=== PATIENT | male | born 1940 | race Caucasian/White ===

== ENCOUNTER 2022-04-28 09:53 | Outpatient (CLI) | payer MEDICARE, SELFPAY ==
[2022-04-28 12:28] LABS: Albumin* 3.8 g/dL (3.3-5.0); Chloride* 111 mmol/L (96-114)
[2022-04-28 12:29] LABS: Potassium* 4.3 mmol/L (3.6-5.1); Sodium* 142 mmol/L (135-149)
[2022-04-28 12:31] LABS: Alanine Aminotransferase* 27 U/L (4-50); Alkaline Phosphatase* 72 U/L (40-150); Aspartate Amino Transferase* 26 U/L (12-35); Bilirubin Total* 1.2 mg/dL (0.1-1.5); Blood Urea Nitrogen* 31 mg/dL (7-30); Calcium* 9.5 mg/dL (8.4-10.6); Carbon Dioxide* 22 mmol/L (20-32); Cholesterol* 108 mg/dL (90-199); Creatinine* 1.6 mg/dL (0.5-1.5); Estimated Glomerular Filt Rate 43 ml/min; Glucose* 101 mg/dL (60-115); Total Protein* 6.5 g/dL (6.0-8.3); Triglycerides* 191 mg/dL (40-149)
[2022-04-28 12:32] LABS: HDL Cholesterol* 28 mg/dL (>=40); LDL Cholesterol Calculated 42 mg/dL (<100)
== END 2022-04-28 09:54 | disposition home or self-care (01) ==
PROVIDERS: PCP Internal Medicine; Visit Provider Internal Medicine
DX: E78.5 Hyperlipidemia, unspecified (principal); I10 Essential (primary) hypertension
CPT/HCPCS: 80053; 80061

== ENCOUNTER 2022-08-08 15:26 | Emergency (ER) | payer MEDICARE, SELFPAY ==
[2022-08-08] VITALS (29 sets, daily range): BP systolic 101–182; BP diastolic 40–89; PULSE 61–96; RESP 24; TEMP 37.3–39.3; O2SAT 88–95; BMI 40.6
[2022-08-08] MEDS: 0.9 % SODIUM CHLORIDE 1000 ml 1,000 ML IV (16:48)
[2022-08-08 17:12] LABS: Basophils Absolute Auto 0.01 K/uL (0.00-0.30); Basophils Percent Auto 0.1 % (0.0-3.0); Eosinophils Absolute Auto 0.01 K/uL (0.00-0.50); Eosinophils Percent Auto 0.1 % (0.0-7.0); Hematocrit 43.4 % (37.0-53.0); Hemoglobin* 14.3 gm/dL (13.5-17.5); Immature Granulocytes Abs Auto 0.01 K/uL (0.00-0.30); Immature Granulocytes Pct Auto 0.1 %; Lymphocytes Percent Auto 8.3 % (20-44); Mean Corpuscular HGB Conc 33 gm/dL (32-36); Mean Corpuscular Hemoglobin 31 pg (26-34); Mean Corpuscular Volume 94 fL (80-100); Monocytes Percent Auto 8.7 % (0.0-11.0); Neutrophils Percent Auto 82.7 % (42.0-72.0); Platelet Count* 109 K/uL (140-440); RDW Coefficient of Variation % 13.5 % (11.5-15.5); Red Blood Count 4.64 m/uL (4.30-5.90); White Blood Count* 8.67 K/uL (4.50-11.00)
--- NOTE | 2022-08-08 17:23 | ED_ITS ---
HPI - Fever General Date Seen: 08/08/22 Chief Complaint: Fever Stated Complaint: Fever last 2 days, a bit looney Time Seen by Provider: 08/08/22 15:27 Source: patient and family Mode of arrival: ambulatory Limitations: no limitations History of Present Illness HPI Narrative: Patient is a very nice 81-year-old gentleman who presents here from home, with a history of a fever last night in the evening. It has been up to 100-103 at home he is taking Tylenol it does come down to the low 100s with this. He notices that he feels chilled, no nausea, no abdominal pain, little bit of a cough, but no sore throat, he denies any rashes notable. Any ulcers, any diarrhea, and has an indwelling ostomy bag that he has had for the past year secondary to bladder cancer. He has had previous history of UTIs, and they wonder if this is maybe what is going on. MD elicited complaint: fever Onset (ago): day(s) Exacerbating factors: nothing Relieving factors: acetaminophen Associated symptoms: chills, nasal congestion and cough Treatments prior to arrival fever: acetaminophen Related Data Previous Rx's Medication Instructions Recorded allopurinol 300 mg tablet 300 mg PO QDAY #90 tabs 04/21/22 atenolol 25 mg tablet 25 mg PO QDAY #90 tabs 04/21/22 losartan 100 mg tablet 100 mg PO QDAY #90 tabs 04/21/22 simvastatin 40 mg tablet 40 mg PO QHS #90 tabs 08/04/22 Allergies Allergy/AdvReac Type Severity Reaction Status Date / Time No Known Allergies Allergy Unverified 04/28/22 09:34 Review of Systems Status of ROS Reports: 10 or more systems reviewed and unremarkable except as noted in History and below [facility] Medical History Obesity ?E66.9 - Obesity, unspecified (ICD-10) Prostate cancer ?C61 - Malignant neoplasm of prostate (ICD-10) Social History Narrative: Hx tobacco use Smoking Status: Former smoker Do you use any of these nicotine containing products: None Second hand tobacco smoke exposure: No How often do you have a drink containing alcohol: 2-3 times a week How many standard drinks containing alcohol do you have on a typical day: 1 or 2 How often do you have six or more drinks on one occasion: Never AUDIT-C Alcohol total score: 3 Non-prescribed substance use: denies use Little interest or pleasure in doing things: not at all Feeling down, depressed, or hopeless: not at all service: Yes Exam Narrative Exam Narrative: Patient is seen in room 1 he has appear in no apparent distress, he is able to sit up for me, his pupils are equal round reactive to light his TMs are normal his oropharynx is normal, normal hydration status no meningismus in his neck is supple. 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 No tenderness to palpation over his abdomen, normal male genitalia, moves all extremities independently well, he does have some venous stasis changes and healed areas on his shins bilaterally, but tells me there is nothing for ulcers noted on his buttocks or his feet. Neurologically intact moving his upper lower extremities and acting normal for me here. His family is in agreement. Const Vital Signs, click to edit/add: Vital Signs - 24 hr 08/08/22 15:37 08/08/22 15:51 08/08/22 16:00 Temperature 102.7 F H Pulse Rate 69 70 Pulse Rate [Pulse Oximeter] 96 Respiratory Rate 24 Blood Pressure Blood Pressure [Right Upper Arm] 165/67 H Pulse Oximetry 95 94 94 Oxygen Delivery Method Room Air 08/08/22 16:02 08/08/22 16:15 08/08/22 16:30 Temperature Pulse Rate 68 63 64 Pulse Rate [Pulse Oximeter] Respiratory Rate Blood Pressure 153/64 H Blood Pressure [Right Upper Arm] Pulse Oximetry 95 93 93 Oxygen Delivery Method 08/08/22 16:33 08/08/22 16:50 08/08/22 16:52 Temperature Pulse Rate 67 67 65 Pulse Rate [Pulse Oximeter] Respiratory Rate Blood Pressure 182/70 H 175/68 H Blood Pressure [Right Upper Arm] Pulse Oximetry 93 93 92 Oxygen Delivery Method 08/08/22 17:00 08/08/22 17:02 08/08/22 17:03 Temperature Pulse Rate 70 69 71 Pulse Rate [Pulse Oximeter] Respiratory Rate Blood Pressure 152/65 H Blood Pressure [Right Upper Arm] Pulse Oximetry 93 94 93 Oxygen Delivery Method 08/08/22 17:21 08/08/22 17:30 08/08/22 17:32 Temperature Pulse Rate 70 68 68 Pulse Rate [Pulse Oximeter] Respiratory Rate Blood Pressure 132/40 L Blood Pressure [Right Upper Arm] Pulse Oximetry 91 94 93 Oxygen Delivery Method 08/08/22 17:45 08/08/22 18:00 08/08/22 18:02 Temperature 102.2 F H Pulse Rate 64 61 67 Pulse Rate [Pulse Oximeter] Respiratory Rate Blood Pressure 108/64 Blood Pressure [Right Upper Arm] Pulse Oximetry 91 88 90 Oxygen Delivery Method 08/08/22 18:15 08/08/22 18:30 08/08/22 18:33 Temperature Pulse Rate 62 62 63 Pulse Rate [Pulse Oximeter] Respiratory Rate Blood Pressure 101/89 Blood Pressure [Right Upper Arm] Pulse Oximetry 88 90 92 Oxygen Delivery Method 08/08/22 18:45 08/08/22 19:38 08/08/22 18:52 Temperature 99.2 F Pulse Rate 78 75 Pulse Rate [Pulse Oximeter] Respiratory Rate Blood Pressure 111/53 L Blood Pressure [Right Upper Arm] Pulse Oximetry 91 92 Oxygen Delivery Method 08/08/22 19:00 08/08/22 19:02 08/08/22 19:15 Temperature Pulse Rate 72 69 71 Pulse Rate [Pulse Oximeter] Respiratory Rate Blood Pressure 123/53 L Blood Pressure [Right Upper Arm] Pulse Oximetry 93 92 93 Oxygen Delivery Method 08/08/22 19:30 08/08/22 19:31 Temperature Pulse Rate 68 68 Pulse Rate [Pulse Oximeter] Respiratory Rate Blood Pressure 129/64 Blood Pressure [Right Upper Arm] Pulse Oximetry 94 91 Oxygen Delivery Method Course Course Hospital Course: I reviewed with the patient and family he is doing much better in their opinion and mine. He is not tachycardic he has a normal blood pressure is lactate is normal. He still has a fever, but I suspect that this is from his UTI. His urine certainly does look gunk in the setting with a fever negative chest x-ray, and a white count that is normal. I think we should treat this with antibiotics. I reviewed over the his last few visits for UTI, he grew Klebsi milo, Proteus, any coli. All were very sensitive to 1st generation cephalosporin. I gave him 2 g IV of cefazolin and then we will put him on oral Keflex to go home. They will watch him closely if he has increasing delirium, tachycardia feel syncopal or vomits, they will bring him back to be seen. They are very comfortable this plan. Vital Signs Vital signs: Initial Vital Signs Respiratory Depth Normal 08/08/22 15:27 Sepsis Recent Fever Within 48 Hours Yes 08/08/22 15:27 Sepsis Action Taken by Nursing No Action Required 08/08/22 15:27 Vital Signs Temperature 102.7 F H 08/08/22 15:37 Pulse Rate 96 08/08/22 15:37 Respiratory Rate 24 08/08/22 15:37 Blood Pressure 165/67 H 08/08/22 15:37 Pulse Oximetry 95 08/08/22 15:37 Oxygen Delivery Method Room Air 08/08/22 15:37 Temperature 99.2 F 08/08/22 19:38 Pulse Rate 68 08/08/22 19:31 Respiratory Rate 24 08/08/22 15:37 Blood Pressure 129/64 08/08/22 19:31 Pulse Oximetry 91 08/08/22 19:31 Oxygen Delivery Method Room Air 08/08/22 15:37 MDM - Fever MDM Narrative Medical decision making narrative: Life-threatening differential diagnosis is include meningitis, encephalitis, pneumonia, intra-abdominal infection, bacteremia, other differential diagnosis include but are not limited to viral upper respiratory tract infection, strep, urinary tract infection, skin infection, osteomyelitis, influenza, fungal infections, diskitis, epidural abscess, or fever of unknown origin. Medical Records Attestation: I reviewed the patient's medical records. Lab Data Attestation: I reviewed the patient's lab results. Labs: Lab Results 08/08/22 08/08/22 08/08/22 Range/Units 16:29 16:45 17:20 WBC 8.67 (4.50-11.00) K/uL RBC 4.64 (4.30-5.90) m/uL Hgb 14.3 (13.5-17.5) gm/dL Hct 43.4 (37.0-53.0) % MCV 94 (80-100) fL MCH 31 (26-34) pg MCHC 33 (32-36) gm/dL RDW Coeff of Comfort 13.5 (11.5-15.5) % Plt Count 109 L (140-440) K/uL Neut % (Auto) 82.7 H (42.0-72.0) % Lymph % (Auto) 8.3 L (20-44) % [place] % (Auto) 8.7 (0.0-11.0) % Eos % (Auto) 0.1 (0.0-7.0) % Baso % (Auto) 0.1 (0.0-3.0) % Neut # (Auto) 7.20 H (1.7-7.0) K/uL Lymph # (Auto) 0.70 L (0.90-2.90) K/uL [place] # (Auto) 0.80 (0.00-0.90) K/UL Eos # (Auto) 0.01 (0.00-0.50) K/uL Baso # (Auto) 0.01 (0.00-0.30) K/uL Sodium 135 (135-149) mmol/L Potassium 4.1 (3.6-5.1) mmol/L Chloride 104 (96-114) mmol/L Carbon Dioxide 24 (20-32) mmol/L BUN 24 (7-30) mg/dL Creatinine 1.9 H (0.5-1.5) mg/dL Estimated Creat Clear 37.06 Estimated GFR 35 ml/min Glucose 103 (60-115) mg/dL Lactate 1.5 (0.5-1.9) mmol/L Calcium 8.9 (8.4-10.6) mg/dL C-Reactive Protein 7.5 H (0.5-1.0) mg/dL Urine Color Yellow (Yellow) Urine Appearance Clear (Clear) Urine pH 6.0 (5.0-8.5) Ur Specific [place] 1.015 (1.000-1.030) Urine Protein 2+ A (Negative) Urine Glucose (UA) Negative (Negative) Urine Ketones Trace A (Negative) Urine Blood 3+ A (Negative) Urine Nitrite Positive A (Negative) Urine Bilirubin Negative (Negative) Urine Urobilinogen 0.2 (0.2-1.0) Ur Leukocyte Esterase 3+ A (Negative) Urine RBC 10-25 A (0-2) Urine WBC 25-50 A (0-5) Ur Squamous Epith Cells Few (None-Few) Urine Bacteria Moderate A (None) SARS-CoV-2 (PCR) Negative SARS-CoV-2 (Negative) Influenza Type A (PCR) Negative PCR FLU A (Negative) Influenza Type B (PCR) Negative PCR FLU B (Negative) RSV (PCR) Negative PCR RSV (Negative) POC Troponin I 0.00 L (0.01-0.04) ng/ml Imaging Data Chest x-ray: Attestation: I have reviewed the pertinent imaging results. My impression: Negative chest x-ray Radiologist's impression: Negative chest xray ECG Data Attestation: I personally reviewed and interpreted this ECG as follows: ECG interpretation date: 08/08/22 Interpretation: EKG shows normal sinus rhythm with first-degree AV block, no acute ST wave changes, QRS QT and OK intervals are normal. Q-waves are notable in the inferior regions, which may be pathologic. Assessment: EKG shows no acute changes Discharge Plan Discharge Clinical Impression: Fever, Acute UTI Patient Disposition: Home w/ Parent or Adult Condition: Stable Instructions: Urinary Tract Infection in Men (DC), Fever in Adults (ED), Urinary Tract Infection in Older Adults (ED) Additional Instructions: Home rest medications as directed, increasing fevers chills delirium, nausea vomiting, or other issues please bring him back to the hospital. But I do think this will cover him very well at least for the presumed UTI. Tylenol q.6h, can be alternating with ibuprofen. Activity Level: No Restrictions and Light activity Discharge Diet: Regular Prescriptions: No Action allopurinol 300 mg tablet 300 mg PO QDAY Qty: 90 1RF atenolol 25 mg tablet 25 mg PO QDAY Qty: 90 1RF losartan 100 mg tablet 100 mg PO QDAY Qty: 90 1RF simvastatin 40 mg tablet 40 mg PO QHS Qty: 90 0RF Follow Up/Referrals: Gaetano Mariscal MD [Primary Care Provider] - Stand Alone Forms: [employer] Info Instructions
[2022-08-08 17:24] LABS: Lactate* 1.5 mmol/L (0.5-1.9)
[2022-08-08] MEDS: IBUPROFEN 400 MG TABLET 800 MG PO (17:27)
[2022-08-08 17:28] LABS: Appearance Urine Clear (Clear); Bilirubin Urine Negative (Negative); Blood Urine 3+ (Negative); Color Urine Yellow (Yellow); Glucose Urine Negative (Negative); Ketones Urine Trace (Negative); Leukocyte Esterase Urine 3+ (Negative); Nitrite Urine Positive (Negative); Protein Urine 2+ (Negative); Specific Gravity Urine 1.015 (1.000-1.030); Urobilinogen Urine 0.2 (0.2-1.0)
[2022-08-08 17:33] LABS: Chloride* 104 mmol/L (96-114); Sodium* 135 mmol/L (135-149)
[2022-08-08 17:34] LABS: Potassium* 4.1 mmol/L (3.6-5.1)
[2022-08-08 17:36] LABS: Creatinine* 1.9 mg/dL (0.5-1.5); Est. Creatinine Clearance* 37.06; Estimated Glomerular Filt Rate 35 ml/min
[2022-08-08 17:37] LABS: Blood Urea Nitrogen* 24 mg/dL (7-30); Calcium* 8.9 mg/dL (8.4-10.6); Carbon Dioxide* 24 mmol/L (20-32); Glucose* 103 mg/dL (60-115)
[2022-08-08 17:40] LABS: C Reactive Protein* 7.5 mg/dL (0.5-1.0)
[2022-08-08 17:48] LABS: Bacteria Urine Moderate; Squamous Epithelial Cell Urine Few (None-Few); WBC Urine 25-50 (0-5)
[2022-08-08 17:55] LABS: PCR FLU A Negative PCR FLU A (Negative); PCR FLU B Negative PCR FLU B (Negative); PCR RSV Negative PCR RSV (Negative)
[2022-08-08 17:57] LABS: SARS PCR* Negative SARS-CoV-2 (Negative)
[2022-08-08 18:08] LABS: Slide Review Reflex No
--- NOTE | 2022-08-08 18:43 | CRLHL7_ITS ---
For Patients: As a result of the Century Cures Act, medical imaging exams and procedure reports are released immediately into your electronic medical record. You may view this report before your referring provider. If you have questions, please contact your health care provider. INDICATION: Fever, cough TECHNIQUE: Chest radiograph 3 views COMPARISON: 01/18/2021, 10/16/2014 FINDINGS: The sensitivity and specificity of the exam are moderately limited by the patient`s body habitus. Mediastinum: The mediastinum is normal in appearance. The heart silhouette is normal in size and morphology. Lung: Both lungs are unremarkable in appearance. No sign of pleural effusion seen. No pneumothorax is identified. Bone and Soft tissue: Unremarkable for age. IMPRESSION: 1. No acute cardiopulmonary disease is seen. Dictated by: Star Grigsby MD @ 08/08/2022 19:17:54 (Electronically Signed)
[2022-08-08] MEDS: CEFAZOLIN 2 GM INJ IVP (19:38)
[2022-08-08] MEDS: ACETAMINOPHEN 500 MG TABLET 1000 MG PO (19:38)
== END 2022-08-08 20:16 | disposition home or self-care (01) ==
PROVIDERS: Emergency Provider Family Medicine; PCP Internal Medicine
DX: N39.0 Urinary tract infection, site not specified (principal); R50.9 Fever, unspecified
CPT/HCPCS: 36415; 71046; 80048; 81001; 83605; 84484; 85025; 86140; 87040; 87086; 87186; 87631; 93005; 96361; 96374; 99284; 99285; A9270; J0690; J7030

== ENCOUNTER 2022-12-03 15:02 | Outpatient (CLI) | payer MEDICARE, SELFPAY | END 2022-12-03 15:03 | disposition home or self-care (01) | PROVIDERS: PCP Internal Medicine; Visit Provider Internal Medicine | DX: C61 Malignant neoplasm of prostate (principal); C73 Malignant neoplasm of thyroid gland; C67.9 Malignant neoplasm of bladder, unspecified; N18.9 Chronic kidney disease, unspecified; Z12.5 Encounter for screening for malignant neoplasm of prostate | CPT/HCPCS: 84153; 84439; 84443 ==

== ENCOUNTER 2023-02-17 07:42 | Outpatient (CLI) | payer MEDICARE, SELFPAY ==
--- NOTE | 2023-02-17 09:31 | W.ANESCHARGE ---
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
== END 2023-02-17 07:43 | disposition home or self-care (01) ==
LOC: OP CLINIC 07:43
PROVIDERS: PCP Internal Medicine; Visit Provider Surgery
DX: Z12.11 Encounter for screening for malignant neoplasm of colon (principal); K63.5 Polyp of colon; K64.9 Unspecified hemorrhoids; Z86.010 Personal history of colon polyps
CPT/HCPCS: 45385; 811; 88305; 99100; J2704; J3490

== ENCOUNTER 2023-08-25 08:10 | Outpatient (CLI) | payer MEDICARE, SELFPAY ==
--- OUTSIDE RECORDS SUMMARY | 2023-08-27 07:41 | XMS_ITS | Referral Summary ---
Author Name Unknown Organization [facility] Address [address] [place] [id number] Care Team Providers Care Economic Developer Name Role Phone Gaetano Mariscal MD Primary Care Provider Allergies No known active allergies Medications Medication Sig Dispensed Refills Start Date End Date Status SIMVASTATIN PO Take 40 mg by mouth At Bedtime. Active sennosides (SENOKOT) 8.6 MG tablet Take 2 tablets by mouth 2 times daily Active ALLOPURINOL PO Take 300 mg by mouth daily. Active LOSARTAN POTASSIUM PO Take 50 mg by mouth daily Active Potassium Chloride Viji ER (K-DUR PO) Take 20 mEq by mouth 2 times daily Active TORSEMIDE PO Take 5 mg by mouth daily as needed Active CYANOCOBALAMIN PO Take 1 tablet by mouth daily Dose unknown Active atenolol (TENORMIN) 25 MG tabletIndications:Esse ntial hypertension Take 2 tablets (50 mg) by mouth daily 30 tablet 03/24/2017 Active Active Problems Problem Noted Date Diagnosed Date Sepsis 03/19/2017 Social History Tobacco Use Types Packs/Day Years Used Date Smoking Tobacco: Former Smokeless Tobacco: Never Alcohol Use Standard Drinks/Week Comments Yes 0 (1 standard drink = 0.6 oz pur e alcohol) wine daily Sex and Gender Information Value Date Recorded Sex Assigned at Not on file Gender Identity Not on file Sexual Orientation Not on file Last Filed Vital Signs Vital Sign Reading Time Taken Comments Blood Pressure 133/65 04/02/2017 3:00 PM ACCOUNTS PAYABLE SUPERVISOR Pulse 57 04/02/2017 3:00 PM ACCOUNTS PAYABLE SUPERVISOR Temperature 35.9 ??C (96.6 ??F) 04/02/2017 3:00 PM CS T Respiratory Rate 16 04/02/2017 3:00 PM ACCOUNTS PAYABLE SUPERVISOR Oxygen Saturation 99% 04/01/2017 2:23 PM ACCOUNTS PAYABLE SUPERVISOR Inhaled Oxygen Concentration - - Weight 143 kg (315 lb 3.2 oz) 03/24/2017 7:04 AM ACCOUNTS PAYABLE SUPERVISOR Height 190.5 cm (6' 3) 03/19/2017 8:55 PM ACCOUNTS PAYABLE SUPERVISOR Body Mass Index 39.4 03/19/2017 8:55 PM ACCOUNTS PAYABLE SUPERVISOR Plan of Treatment Not on file Advance Directives For more information, please contact: [phone] * Full Code (Latest Code Status on File) Date Activated Date Inactivated Comments 03/24/2017 1:29 PM * Full Code Date Activated Date Inactivated Comments 03/19/2017 9:00 PM 03/24/2017 1:29 PM Care Teams Economic Developer Relationship Specialty Start Date End Date Gaetano Mariscal MD [facility] [address] [place] [address] PCP - General Emergency Medicine 03/19/17
--- OUTSIDE RECORDS SUMMARY | 2023-08-27 07:41 | XMS_ITS | Clinical Summary ---
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 MANAGER Pulse 57 04/02/2017 3:00 PM FROZEN FOOD DEPARTMENT MANAGER Temperature 35.9 ??C (96.6 ??F) 04/02/2017 3:00 PM CS T Respiratory Rate 16 04/02/2017 3:00 PM FROZEN FOOD DEPARTMENT MANAGER Oxygen Saturation 99% 04/01/2017 2:23 PM FROZEN FOOD DEPARTMENT MANAGER Inhaled Oxygen Concentration - - Weight 143 kg (315 lb 3.2 oz) 03/24/2017 7:04 AM FROZEN FOOD DEPARTMENT MANAGER Height 190.5 cm (6' 3) 03/19/2017 8:55 PM FROZEN FOOD DEPARTMENT MANAGER Body Mass Index 39.4 03/19/2017 8:55 PM FROZEN FOOD DEPARTMENT MANAGER Plan of Treatment Not on file Advance Directives For more information, please contact: [phone] * Full Code (Latest Code Status on File) Date Activated Date Inactivated Comments 03/24/2017 1:29 PM * Full Code Date Activated Date Inactivated Comments 03/19/2017 9:00 PM 03/24/2017 1:29 PM Care Teams Metal Tile Setter Relationship Specialty Start Date End Date Gaetano Mariscal MD [facility] [address] [place] [address] PCP - General Emergency Medicine 03/19/17
--- OUTSIDE RECORDS SUMMARY | 2023-08-27 07:42 | XMS_ITS | Encounter Summary ---
Author Name Unknown Organization [facility] Address [address] [place] [address] Care Team Providers Care Molder Hand Name Role Phone None Reported, Pcp Primary Care Provider Unavail able Encounter Details Date Type Department Care Team ([facility] st Contact Info) Description 06/25/2023 Orders Only Department of Urology in [place], [place] [address] [place] [phone] Merced Rivera, RShanice, COCN [address] [place] [id number] Urostomy Status Post (HCC) Social History Tobacco Use Types Packs/Day Years Used Date Smoking Tobacco: Former Cigarettes 0 04/22/1959 - 04/22/1989 Smokeless Tobacco: Never Alcohol Use Standard Drinks/Week Comments Yes 8 (1 standard drink = 0.6 oz pur e alcohol) 1 cup coffee daily INTERNET BUSINESS 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 No 06/20/2023 Humiliation, Afraid, Rape, and Kick questionnair e Answer Date Recorded Within the last year, have y ou been afraid of your partner or ex-partner? No 09/05/2022 Within the last year, have y ou been humiliated or emotionally abused in other ways by your partner or ex-partner? No Within the last year, have y ou been kicked, hit, slapped, or otherwise physically hurt by your partner or ex-partner? No 09/05/2022 Within the last year, have y ou been raped or forced to have any kind of sexual activity by your partner or ex-partner? No 09/05/2022 Social Connection and Isolation Panel [NHANES] A nswer Date Recorded In a typical week, how many times do you talk on the phone with family, friends, or neighbors? Once a week 05/28/19 How often do you get togethe r with friends or relatives? Twice a week 05/28/2022 How often do you attend caro center or mu-ism services? Patient declined 05/28/2022 Do you belong to any clubs o r organizations such as taoism groups, unions, fraternal or athletic groups, or school groups? No 05/28/2022 How often do you attend meet ings of the clubs or organizations you belong to? 1 to 4 times per year 05/28/2022 Are you , , di vorced, , never , or living with a partner? 05/28/2022 AUDIT-C Answer Date Recorded Q1: How often do you have a drink containing alc ohol? 2-3 times a week 05/28/2022 Q2: How many drinks containi ng alcohol do you have on a typical day when you are drinking? 1 or 2 05/28/2022 Q3: How often do you have si x or more drinks on one occasion? Never 05/28/2022 Overall Financial Resource Strain (CARDIA) Answe r Date Recorded How hard is it for you to pa y for the very basics like food, housing, medical care, and heating? Not very hard 09/05/2022 [facility] - Occupational Stress Questionnaire Answer Date Recorded Do you feel stress - tense, restless, nervous, or anxious, or unable to sleep at night because your mind is troubled all the time - these days? Not at all 05/28/2022 Exercise Vital Sign Answer Date Recorde d On average, how many days pe r week do you engage in moderate to strenuous exercise (like a brisk walk)? 0 days 06/20/2023 On average, how many minutes do you engage in exercise at this level? 0 min 06/20/2023 Hunger Vital Sign Answer Date Recorded Within the past 12 months, y ou worried that your food would run out before you got the money to buy more. Never true 06/20/19 24 Within the past 12 months, t he food you bought just didn't last and you didn't have money to get more. Never true 06/20/2023 PRAPARE - Transportation Answer Date Re corded In the past 12 months, has l ack of transportation kept you from medical appointments or from getting medications? No 12/2023 In the past 12 months, has l ack of transportation kept you from meetings, work, or from getting things needed for daily living? No 06/20/2023 Nutrition Answer Date Recorded Nutrition: EVOO Fat Source Yes 06/19 On average, how many serving s of fruits and vegetables do you eat per day (serving size is equal to 1 cup or approximately the size of a tennis ball)? 0-2 06/20/2023 Dental Answer Date Recorded Dental: Regular Dentist Yes 05/30/19 Employment Answer Date Recorded Employment status Retired 06/20/2023 Housing Stability Answer Date Recorded What is your living situation today? I have a [facility] place to live 06/20/2023 Education Answer Date Recorded What is the highest level of school you have completed or the highest degree you have received? 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
--- OUTSIDE RECORDS SUMMARY | 2023-08-27 07:42 | XMS_ITS | Encounter Summary ---
Author Name Unknown Organization [facility] Address [address] [place] [id number] Care Team Providers Care Column Precaster Name Role Phone None Reported, Pcp Primary Care Provider Unavail able Reason for Referral * MRI/CAT/PET Scan (Routine) - Closed Specialty Diagnoses / Procedures Referred By Contac t Referred To Contact Radiology Diagnoses Malignant Neoplasm Of Bladder (HCC) Procedures CT Chest with IV Contrast CT Chest without IV Contrast Christofer Newman MPAS P.A.-C. [address] [place] [phone] [facility] Referral ID Status Reason Start Date Expiration Date Visits Re quested Visits Authorized [id number] Closed 1 1 * MRI/CAT/PET Scan (Routine) - Closed Specialty Diagnoses / Procedures Referred By Contac t Referred To Contact Radiology Diagnoses Malignant Neoplasm Of Bladder (HCC) Procedures CT Urogram without and with IV Contrast Christofer Newman MPAS P.A.-C. [address] [place] [phone] [facility] Referral ID Status Reason Start Date Expiration Date Visits Re quested Visits Authorized [id number] Closed 1 1 Reason for Visit * MRI/CAT/PET Scan (Routine) - Closed Specialty Diagnoses / Procedures Referred By Amaya cook Referred To Contact Radiology Diagnoses Malignant Neoplasm Of Bladder (HCC) Procedures CT Urogram without and with IV Contrast Christofer Newman MPAS, P.A.-C. [address] [place] [address] [facility] Referral ID Status Reason Start Date Expiration Date Visits Re quested Visits Authorized [id number] Closed 1 1 Encounter Details Date Type Department Care Team (Latest Contact Info) Description 06/24/2023 9:51 AM CDT - 06/24/2023 11:59 PM CDT Hospital Encounter Department of Radiology, [facility], in [place], [place] [address] [place] [address] Christofer Newman MPAS, P.A.-C. [address] [place] [phone] Malignant Neoplasm Of Bladder (HCC) Discharge Disposition: Home or Self Care Social History Tobacco Use Types Packs/Day Years Used Date Smoking Tobacco: Former Cigarettes 0 04/22/1959 - 04/22/1989 Smokeless Tobacco: Never Alcohol Use Standard Drinks/Week Comments Yes 8 (1 standard drink = 0.6 oz pur e alcohol) 1 cup coffee daily [facility] [employer] Answer Date Recorded In the past 12 months has e [employer], gas, oil, or water [employer] threatened to shut off services in your [...] friends, or neighbors? Once a week 05/28/19 23 How often do you get togethe r with friends or relatives? Twice a week 05/28/2022 How often do you attend chur ch or mandaeism services? Patient declined 05/28/2022 Do you belong to any clubs o r organizations such as roman catholic groups, unions, fraternal or athletic groups, or [...] care, and heating? Not very hard 09/05/2022 [facility] of Occupat ional Health - Occupational [...] your living situation today? I have a [facility] place to live 06/20/2023 Education Answer Date Recorded What is the highest level of school you have completed or the highest degree you have received? 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 allopurinol (ZYLOPRIM) 300 mg tablet Take 300 mg by mouth every morning. 04/23/2011 atenoloL (TENORMIN) 25 mg tablet Take 25 mg by mouth daily. cholecalciferol (VITAMIN D3) 2,000 Unit capsule Take 2,000 Units by mouth every evening. diphenhydramine HCl (ALLERGY ORAL) Take 1 tablet by mouth 2 (two) times a day. DME Bi-level PAPIndications:Centr al Sleep Apnea Syndrome,Apnea Sleep Obstructive DME Order 1 each 11 06/12/2021 KRILL OIL ORAL Take 1 capsule by mouth every evening. losartan (COZAAR) 100 mg tablet Take 100 mg by mouth daily. 04/21/2022 sennosides-docusate sodium (SENOKOT-S) 8.6-50 mg per tablet Take 1 tablet by mouth 2 (two) times a day. 11/03/2016 simvastatin (ZOCOR) 40 mg tablet Take 40 mg by mouth at bedtime. 04/23/2011 triamcinolone (KENALOG) 0.1 % cream Apply 1 Application topically as needed for irritation or rash. turmeric root extract 500 mg capsule Take 500 mg by mouth daily. DME Ostomy suppliesIndications: Urostomy Status Post (HCC) DME Order 1 Unspecified 11 06/24/2023 06/25/2023 documented as of this encounter Plan of Treatment Not on file documented as of this encounter Procedures Procedure Name Priority Date/Time Associated Diagnosis Comments CT UROGRAM WITHOUT AND WITH IV CONTRAST RAD - Routine (most inpatients and all outpatients) 06/24/2023 12:36 PM CDT Malignant Neoplasm Of Bladder (HCC) CT CHEST WITH IV CONTRAST RAD - Routine (most inpatients and all outpatients) 06/24/2023 12:36 PM CDT Malignant Neoplasm Of Bladder (HCC) documented in this encounter Results * CT Chest with IV Contrast (06/24/2023 12:36 PM CDT) Anatomical Region Laterality Modality Chest, Thoracic RST LOS, Tho racic ARZ LOS, Thoracic ARZ LOS, Thoracic FLA LOS N/A Computed Tomography, Compute d Tomography 06/24/2023 12:1 8 PM CDT Impressions 06/24/2023 1:03 PM CDT 1. No evidence of metastatic disease in the chest. 2. Interval left thyroid lobectomy. Narrative 06/24/2023 1:03 PM CDT EXAM: CT CHEST WITH IV CONTRAST COMPARISON: Chest CT 06/09/2022. FINDINGS: Tiny pulmonary nodules measuring up to 4 mm are unchanged with examples including a nodule in the left upper lobe (series 3 image 263), lingula (3/387) and right upper lobe (3/213). No new or enlarging nodules. Calcified pulmonary granulomas. Small amount of scarring in the dependent lower lungs. No pleural effusion. Interval left thyroid lobectomy. No thoracic lymphadenopathy by size criteria. Moderate to severe coronary artery and aortic valve calcification. Hypertrophic degenerative change in the spine. This examination was performed in conjunction with a CT of the abdomen, which will be reported separately. Procedure Note Trell Dickinson M.D. - 06/24/2023 EXAM: CT CHEST WITH IV CONTRAST COMPARISON: Chest CT 06/09/2022. FINDINGS: Tiny pulmonary nodules measuring up to 4 mm are unchanged with examplesincluding a nodule in the left upper lobe (series 3 image 263), lingula(3/387) and right upper lobe (3/213). No new or enlarging nodules.Calcified pulmonary granulomas. Small amount of scarring in the dependent lower lungs. No pleuraleffusion. Interval left thyroid lobectomy. No thoracic lymphadenopathy by sizecriteria. Moderate to severe coronary artery and aortic valvecalcification. Hypertrophic degenerative change in the spine. This examination was performed in conjunction with a CT of the abdomen,which will be reported separately. IMPRESSION: 1. No evidence of metastatic disease in the chest. 2. Interval left thyroid lobectomy. Christofer SHETTY, P.AEssence. IMG CT [place] OCEDURES * CT Urogram without and with IV Contrast (06/24/2023 12:36 PM CDT) Anatomical Region Laterality Modality Abdomen, Pelvis, Abdominal R ST LOS, Abdominal ARZ LOS, Abdominal FLA LOS N/A Computed Tomograp hy, Computed Tomography 06/24/2023 12:1 7 PM CDT Impressions 06/24/2023 12:51 PM CDT 1. Stable diffuse thickening and enhancement of the wall of the left intrarenal collecting system and ureter with periureteral inflammation. Stable dilatation of the left intrarenal collecting system and ureter with mildly irregular narrowing distally. 3. New mobile intraluminal debris within the left renal pelvis. 4. No specific CT findings to suggest recurrent or metastatic disease in the abdomen or pelvis. Narrative 06/24/2023 12:51 PM CDT EXAM: ??CT UROGRAM WITHOUT AND WITH IV CONTRAST COMPARISON: ??06/09/2022 FINDINGS: ??Postoperative changes of cystoprostatectomy with right lower quadrant urinary diversion. No significant interval change in the moderate dilatation of the left ureter and intrarenal collecting system with mildly irregular narrowing distally near the anastomosis. Persistent diffuse thickening and enhancement and wall of the left intrarenal collecting system and ureter and perihilar and periureteric inflammatory changes. Interval development of mobile debris within the left renal pelvis. Stable slight enhancement and minimal thickening of the wall of the right ureter. Bilateral renal cysts. Large nonobstructed parastomal hernia. Large nonobstructed left inguinal hernia. No adenopathy in the abdomen or pelvis. No suspicious liver lesions. Cholelithiasis. Degenerative changes lumbar spine. This examination was performed in conjunction with a CT of the chest, which will be reported separately. Procedure Note Ariela Bryant M.D. - 06/24/2023 EXAM: CT UROGRAM WITHOUT AND WITH IV CONTRAST COMPARISON: 06/09/2022 FINDINGS: Postoperative changes of cystoprostatectomy with right lowerquadrant urinary diversion. No significant interval change in the moderatedilatation of the left ureter and intrarenal collecting system with mildlyirregular narrowing distally near the anastomosis. Persistent diffuse thickening and enhancement andwall of the left intrarenal collecting system and ureter and perihilar andperiureteric inflammatory changes. Interval development of mobile debriswithin the left renal pelvis. Stable slight enhancement and minimal thickening of the wall of the rightureter. Bilateral renal cysts. Large nonobstructed parastomal hernia. Large nonobstructed left inguinalhernia. No adenopathy in the abdomen or pelvis. No suspicious liver lesions. Cholelithiasis. Degenerative changes lumbar spine. This examination was performed in conjunction with a CT of the chest,which will be reported separately. IMPRESSION: 1. Stable diffuse thickening and enhancement of the wall of the leftintrarenal collecting system and ureter with periureteral inflammation.Stable dilatation of the left intrarenal collecting system and ureter withmildly irregular narrowing distally. 3. New mobile intraluminal debris within the left renal pelvis. 4. No specific CT findings to suggest recurrent or metastatic disease inthe abdomen or pelvis. Christofer SHETTY, PLilianaAGabrieleC. IMG CT [place] OCEDURES documented in this encounter Visit Diagnoses Diagnosis Malignant Neoplasm Of Bladder (HCC) documented in this encounter Administered Medications Inactive Administered Medications - up to 3 most recent administrations Medication Order MAR Action Action Date Dose Rate Site iohexoL 350 mg iodine/mL solution 1-200 mL (OMNIPAQUE) 1-200 mL, intravenous, Once in imaging, contrast, Starting on Thu06/24/23 at 1202, For 1 dose, Imaging Protocol Orders, Dose per Radiant Medication Guidelines Given 06/24/2023 12:02 PM CDT 140 mL sodium chloride 0.9 % flush 1-250 mL 1-250 mL, intravenous, Once, On Thu06/24/23 at 1100, For 1 dose, Imaging Protocol Orders, Dose per Radiant Medication Guidelines Given 06/24/2023 12:03 PM CDT 190 mL documented in this encounter Care Teams Column Precaster Relationship Specialty Start Date End Date None Reported, Pcp PCP - General Family Medicine 10/13/22 documented as of this encounter
--- OUTSIDE RECORDS SUMMARY | 2023-08-27 07:42 | XMS_ITS | Encounter Summary ---
Author Name Unknown Organization [facility] Address [address] [place] [address] Care Team Providers Care Farm Marketer Name Role Phone None Reported, Pcp Primary Care Provider Unavail able Reason for Visit * Outpatient (Routine) - Closed Specialty Diagnoses / Procedures Referred By Contac t Referred To Contact Diagnoses Urostomy Status Post (HCC) Procedures URO Stoma care Christofer Newman MPAS, P.A.-C. [address] [place] [phone] [facility] Referral ID Status Reason Start Date Expiration Date Visits Re quested Visits Authorized [id number] Closed 04/14/2023 04/13/2024 1 1 Encounter Details Date Type Department Care Team (Latest Contact Info) Description 06/24/2023 1:15 PM CDT Procedure visit Department of Urology in [place], [place] [address] [place] [phone] Christofer Newman MPAS, P.A.-C. [address] [place] [phone] Joie Forte R.N., ALAYNA [address] [place] [phone] Urostomy Status Post (HCC) Social History Tobacco Use Types Packs/Day Years Used Date Smoking Tobacco: Former Cigarettes 0 04/22/1959 - 04/22/1989 Smokeless Tobacco: Never Alcohol Use Standard Drinks/Week Comments Yes 8 (1 standard drink = 0.6 oz pur e alcohol) 1 cup coffee daily [facility] Utilities Answer Date Recorded In the past 12 months has th e electric, gas, oil, or water company threatened to shut off services in your [...] week 05/28/2022 How often do you attend [facility] or pentecostal services? Patient declined 05/28/2022 Do you belong to any clubs o r organizations such as yazidi groups, unions, fraternal or athletic groups, or [...] care, and heating? Not very hard 09/05/2022 [facility] of Occupat ional Health - Occupational Stress [...] your living situation today? I have a [facility] place to live 06/20/2023 Education Answer Date Recorded What is the highest level of school you have completed or the highest degree you have received? 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 HISTORY OF PRESENT ILLNESS Michael Dwyer is a 82 y.o. male was referred by Christofer Newman MPAS, P.A.-C. for evaluation of pouching system management. Patient states the pouching system is usually changed every 4 days. Reports having issues with leakage and large hernia. States he cannot wear his pouching system longer than 4 days or else it leaks. He uses XL Brava Strips to help with the seal. Reports he has 2 hernias,one on either side of his abdomen. His hernia support belt is wornout and does not fit him anymore. OBJECTIVE Physical Exam Urostomy Ileal conduit RLQ (Active) Site Assessment Red;Flush Stoma Size 1-1/2 x 1-1/4 Skin Assessment Hernia Intermittently retracts from 4-8 o'clock Peristomal Skin Care Water, skin barrier Skin barrier wipe as stoma changes size between laying andstanding Pouching System (Stomal Appliance) Status Changed;Leaking 4-8 o'clock past convex protective seal after one day. Changed by Wound optical goods worker Pouching System Removed [employer] #[id number], [employer] #[id number], [employer] #[id number], Coloplast XL brava strips, hernia support belt Pouching System Applied [employer] #[id number], [employer] #[id number], [employer] #[id number], [employer]n #[id number] x 4,hernia support belt Patient would like to see if his current system will seal better if he has an appropriate belt. Understands once his has his custom belt, if the leakage continues he should returnto see the C RN. Would likely need to try a flat or soft convex wafer with partial convex ring/washer or a flat wafer with a full convex ring and a partial washer. Measured for custom hernia support belt. Waist circumference laying flat 57, Hernia width 9, standard 1.5 from bottom. [employer], regular elastic, white, right sided stoma for 2-3/4 flange appliance. [employer] contacted for assistance in custom belt ordering number. Connie [id number] was given as belt that patient would need to order. Portal message sent to patient with this information. He has been seen by providers at [facility] for hernia, per patient he was told the hernia would not be repaired unless necessary. Discussed need to lay flat to apply hernia support belt, so it can give the best support for his hernias. ASSESSMENT / PLAN Questions answered. Prescription renewed, to be faxed to [facility] once signed. Patient given ordering information for skin barrier wipes. Encouraged to call or return (per Return Appointment Protocol [id number]) for ostomy related questions or concerns. Patient verbalized understanding. documented in this encounter Miscellaneous Notes * Addendum Note - Joie Forte R.N., CWON - 06/24/2023 1:15 PM CDTAddended by: JOIE FORTE on: 06/24/2023 02:25 PM Modules accepted: Orders documented in this encounter Plan of Treatment Not on file documented as of this encounter Visit Diagnoses Diagnosis Urostomy Status Post (HCC) documented in this encounter Care Teams Farm Marketer Relationship Specialty Start Date End Date None Reported, Pcp PCP - General Family Medicine 10/13/22 documented as of this encounter
--- OUTSIDE RECORDS SUMMARY | 2023-08-27 07:42 | XMS_ITS | Referral Summary ---
Author Name Unknown Organization [facility] Address [address] [place] [address] Care Team Providers Care Combustion Analyst Name Role Phone None Reported, Pcp Primary Care Provider Unavail able Source Comments Patient records contain information from all sites at [facility]. For routine questions regarding patient records, call [phone] during business hours, M-F 8:00 AM - 5:00 PM Central Time. Record requests for emergency care only can be directed to [phone] at any time.[facility] Encounters Date Type Department Care Team Description 06/25/2023 Orders Only Department of Urology in [place], [place] [address] [place] [phone] Merced Rivera, RLilianaNLiliana, JULIENNE Urostomy Status Post (HCC) 06/24/2023 1:15 PM CDT Procedure visit Department of Urology in [place], [place] [address] [place] [phone] Christofer Newamn MPAS, P.A.PhyllisC. Evelyn Ledesma RLilianaNLiliana, ALAYNA Urostomy Status Post (HCC) 06/24/2023 9:00 AM CDT Lab Department of Urology in [place], [place] [address] [place] [phone] Christofer Newman MPAS, P.Carina.Elie. Madhuri Goel RShanice Malignant Neoplasm Of Bladder (HCC) 06/24/2023 9:51 AM CDT - 06/24/2023 11:59 PM CDT Hospital Encounter Department of Radiology, [facility], in [place], [place] [address] [place] [phone] Christofer Newman MPAS, P.A.-C. Malignant Neoplasm Of Bladder (HCC) Discharge Disposition: Home or Self Care 06/24/2023 3:30 PM CDT Office Visit Department of Urology in [place], [place] [address] [place] [phone] Christofer Newman MPAS, P.A.-C. Barby Ojeda, JALEESA C.N.P., M.S.N. Malignant Neoplasm Of Bladder (HCC) (Primary Dx) 06/24/2023 8:00 AM CDT - 06/24/2023 9:50 AM CDT Hospital Encounter Department of Laboratory Medicine and Pathology, [facility], in [place], [place] [address] [place] [phone] Christofer Newman MPAS, P.A.-C. Malignant Neoplasm Of Bladder (HCC) Discharge Disposition: Home or Self Care 06/22/2023 9:15 AM CDT Clinical Communication Virtual Review in [place], [place] 200 [place] [phone] Pre-visit Intake from Last 3 Months Allergies No known active allergies Medications Medication Sig Dispensed Refills Start Date End Date Status sennosides-docusa te sodium (SENOKOT-S) 8.6-50 mg per tablet Take 1 tablet by mouth 2 (two) times a day. 11/03/2016 Active simvastatin (ZOCOR) 40 mg tablet Take 40 mg by mouth at bedtime. 04/23/2011 Active allopurinol (ZYLOPRIM) 300 mg tablet Take 300 mg by mouth every morning. 04/23/2011 Active cholecalciferol (VITAMIN D3) 2,000 Unit capsule Take 2,000 Units by mouth every evening. Active turmeric root extract 500 mg capsule Take 500 mg by mouth daily. Active triamcinolone (KENALOG) 0.1 % cream Apply 1 Application topically as needed for irritation or rash. Active atenoloL (TENORMIN) 25 mg tablet Take 25 mg by mouth daily. Active DME Bi-level PAPIndications:Ce ntral Sleep Apnea Syndrome,Apnea Sleep Obstructive DME Order 1 each 11 06/12/2021 Active losartan (COZAAR) 100 mg tablet Take 100 mg by mouth daily. 04/21/2022 Active KRILL OIL ORAL Take 1 capsule by mouth every evening. Active acetaminophen (TYLENOL) 500 mg tablet Take 1,000 mg by mouth every 6 (six) hours as needed for pain. Active diphenhydramine HCl (ALLERGY ORAL) Take 1 tablet by mouth 2 (two) times a day. Active DME Ostomy suppliesIndicatio ns:Urostomy Status Post ([facility]) DME Order 1 Unspecified 11 06/25/2023 Active Active Problems Patient Care Coordination No te Formatting of this note migh t be different from the original. Authorization to disclose protected health information signed for Luz Dwyer - spouse on 04/22/18. 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 Embolus Pulmonary Personal History 07/14/2011 Conduit Ileal 06/13/2011 Personal History Of Malignant Neoplasm Of Bladde r 04/22/2011 Polyp Colon Adenomatous Personal History 007 Overview: LW Modifier: next colonoscopy 2011 LW Onset: 2006 ; Polyp Colon Adenomatous Detachment Retinal With Defect 05/08/2006 Overview: LW Modifier: left eye LW Onset: 05/06/06 ; Retinal Detach w Defect NOS 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 Overview: 2 stents placed 2005 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 Chronic Kidney Disease (CKD) Stage 3b Glomerular Filtration Rate (GFR) 30 To 44 Hyperlipidemia Resolved Problems Problem Noted Date Diagnosed Date Resolved Date Benign Prostatic Hyperplasia With Lower Urinary Tract Symptom 07/25/2009 05/15/2023 Overview: LW Modifier: s/p TURP ; BPH Age Related Prostate Ca Risk w Obst Immunizations Name Administration Dates Next Due SARS-COV-2 (COVID-19) - PFIZ ER (Discontinued)(12 years or older) 01/04/2021,06/16/2020,05/26/2020 Social History Tobacco Use Types Packs/Day Years Used Date Smoking Tobacco: Former Cigarettes 0 04/22/1959 - 04/22/1989 Smokeless Tobacco: Never Tobacco Cessation:Counseling Given: Not Answered Alcohol Use Standard Drinks/Week Comments Yes 8 (1 standard drink = 0.6 oz pur e alcohol) 1 cup coffee daily [facility] [employer] Answer Date Recorded In the past 12 months has e Diz[employer], gas, oil, or water [employer] threatened to shut off services in your [...] 05/28/2022 How often do you attend chur or sabianist services? Patient declined 05/28/2022 Do you belong to any clubs o r organizations such as baptism groups, unions, fraternal or athletic groups, or [...] care, and heating? Not very hard 09/05/2022 [facility] - [...] living situation today? I have a [facility] place to live 06/20/2023 Education Answer Date Recorded What is the highest level of school you have completed or the highest degree you have received? Bachelor's degree (e.g., BA, AB, BS) 05/16/2019 Sex and Gender Information Value Date Recorded Sex Assigned at Male 01/13/2020 10:41 AM CDT Gender Identity Male 04/11/2018 8:29 AM SECURITY SYSTEM ANALYST Sexual Orientation Straight 04/11/2018 8: 29 AM SECURITY SYSTEM ANALYST Last Filed Vital Signs Vital Sign Reading Time Taken Comments Blood Pressure 149/75 10/14/2022 10:50 AM CDT Pulse 55 10/14/2022 10:50 AM CDT Temperature 36.7 ??C (98.1 ??F) 10/14/2022 10:50 AM C DT Respiratory Rate 17 10/14/2022 10:50 AM CDT Oxygen Saturation 93% 10/14/2022 10:50 AM CDT Inhaled Oxygen Concentration - - Weight 146 kg (322 lb 1.5 oz) 10/13/2022 10:47 A M CDT Height 190 cm (6' 2.8) 10/13/2022 10:47 AM CDT Body Mass Index 40.47 10/13/2022 10:47 AM CDT Plan of Treatment Not on file Medical Devices Implanted Type Area Financial Services Consultant Device Identifier Shelf Expiration Date Model / Serial / Lot Clp Hrzn Ti 6 Satya Horvath Lorne - [id number] Implanted:Qty: 1 on 10/13/2022 by Tam Stoddard M.D. at [facility] Hardware e.g. pins/screws/ rods Neck [employer] [id number] / / Clp Hrzn Ti 6 Satya Horvath Lorne - [id number] Implanted:Qty: 1 on 10/13/2022 by Tam Stoddard M.D. at [facility] Hardware e.g. pins/screws/ rods [employer] [id number] / / Clp Hrzn Ti 6 Clp Sm Red - [id number] Implanted:Qty: 1 on 10/13/2022 by Tam Stoddard M.D. at [facility] Hardware e.g. pins/screws/ rods Neck [employer] / / Clp Hrzn Ti 6 Clp Sm Red - [id number] Implanted:Qty: 1 on 10/13/2022 by Tam Stoddard M.D. at [facility] Hardware e.g. pins/screws/ rods Neck [employer] / / Stent Uret Single J 7 X 90cm - [id number] Implanted:Qty: 1 on 05/29/2011 Ureteral Stent Other/Legacy - See Implant Description Description:Device Manufactu rer - Circon Surgi. Device Status Text - [id number]. Explanted Type Area Financial Services Consultant Device Identifier Shelf Expiration Date Model / Serial / Lot Filter [place]ibal Vena Cava- Jugular - [id number] Implanted:Qty: 1 on 06/23/2011 Explanted:2011 (Quantity not on file) Vascular or IVC Filter Right: Chest C.R.Bard Description:Device Manufactu rer - Bard Access. Device Status Text - [id number]. Procedures Procedure Name Priority Date/Time Associated Diagnosis Comments CT CHEST WITH IV CONTRAST RAD - Routine (most inpatients and all outpatients) 06/24/2023 12:36 PM CDT Malignant Neoplasm Of Bladder (HCC) CT UROGRAM WITHOUT AND WITH IV CONTRAST RAD - Routine (most inpatients and all outpatients) 06/24/2023 12:36 PM CDT Malignant Neoplasm Of Bladder (HCC) CYTOLOGY NON-STOCK PREPARER Routine 06/24/2023 8:51 AM CDT Malignant Neoplasm Of Bladder (HCC) VITAMIN B12 ASSAY, S Routine 06/24/2023 8:26 AM CDT Malignant Neoplasm Of Bladder (HCC) CBC WITHOUT DIFFERENTIAL, B Routine 06/24/2023 8:26 AM CDT Malignant Neoplasm Of Bladder (HCC) BASIC METABOLIC PANEL, S/P Routine 06/24/2023 8:26 AM CDT Malignant Neoplasm Of Bladder (HCC) from Last 3 Months Results * CT Urogram without and with IV [...] disease inthe abdomen or pelvis. Christofer SHETTY, P.AEssence. IMG CT [place] OCEDURES * CT Chest with IV Contrast (06/24/2023 [...] chest. 2. Interval left thyroid lobectomy. Christofer SHETTY PBing. IMG CT [place] OCEDURES * Cytology Non-STOCK PREPARER (06/24/2023 8:51 AM CDT) 06/29/2023 2:55 PM CDT DTL Fixative NA 06/29/2023 2:55 PM CDT DTL Report electronically signed by Mayo Bailey M.D. I verify that I have examined all relevant slides/material s for the specimen(s) and rendered or confirmed the diagnosis. 06/29/2023 2:55 PM CDT DTL Gross Description Received 50 cc of cloudy yellow fluid. 06/29/2023 2:55 PM CDT DTL Collection Procedure stoma urine 06/29/2023 2:55 PM CDT DTL Source A. Urine, Stoma, catheterized 06/29/2023 2:55 PM CDT DTL Interpretation A. Urine, Stoma, catheterized (ThinPrep): Negative for High-Grade Urothelial Carcinoma. ??Cellular changes consistent with urinary diversion. 06/29/2023 2:55 PM CDT DTL Urine 06/24/2023 8:51 AM CDT 06/24/2023 11:05 AM CDT Christofer SHETTY P.A.-C. LAB SURG PATH ORDERABLES Performing Organization Address City/Va Hospital/ZIP Co de Phone Number [facility] 200 [place] [address], [facility] DTL 200 [facility] 200 [place] [address] * CBC without Differential (06/24/2023 8:26 AM CDT) Hemoglobin 13.9 13.2 - 16.6 g/dL 06/24/2023 9:08 AM CDT DTL Hematocrit 42.3 38.3 - 48.6 % 06/24/2023 9:08 AM CDT DTL Erythrocytes 4.51 4.35 - 5.65 x10(12)/L 06/24/2023 9:08 AM CDT DTL MCV 93.8 78.2 - 97.9 fL 06/24/2023 9:08 AM CDT DTL RBC Distrib Width 13.7 11.8 - 14.5 % 06/24/2023 9:08 AM CDT DTL Platelet Count 180 135 - 317 x10(9)/L 06/24/2023 9:08 AM CDT DTL Leukocytes 8.6 3.4 - 9.6 x10(9)/L 06/24/2023 9:08 AM CDT DTL Blood (Blood, Venous) 06/24/2023 8:26 AM CDT 06/24/2023 8:45 AM CDT Christofer SHETTY P.A.-C. LAB BLOOD ADD-ON Performing Organization Address City/Va Hospital/ZIP Co de Phone Number [facility] 200 [place] [address], [facility] DTL [facility] [address] [place] [address] * Vitamin B12 Assay (06/24/2023 8:26 AM CDT) Pathologist [facility] Vitamin B12 Assay, S 221 180 - 914 ng/L 06/24/2023 11:46 AM CDT DTL Comment: ----ADDITIONAL INFORMATION---- In patients being evaluated for vitamin B12 deficiency who have intrinsic factor blocking antibodies (IFBA), false elevations of B12 may occur due to IFBA interference thus potentially obscuring a physiological deficiency of B12. If observed B12 concentrations are discordant with clinical presentation, measurement of methylmalonic acid (MMA) should be considered. Blood (Blood, Venous) 06/24/2023 8:26 AM CDT 06/24/2023 8:59 AM CDT Christofer SHETTY, P.A.-C. LAB BLOOD ADD-ON [place] [address] [place] [address], [facility] [address] [place] [address] * (ABNORMAL) Basic Metabolic Panel (06/24/2023 8:26 AM CDT) Pathologist [facility] Potassium, S 4.3 3.6 - 5.2 mmol/L 06/24/2023 9:45 AM CDT DTL Sodium, S 143 135 - 145 mmol/L 06/24/2023 9:45 AM CDT DTL Chloride, S 106 98 - 107 mmol/L 06/24/2023 9:45 AM CDT DTL Bicarbonate, S 22 22 - 29 mmol/L 06/24/2023 9:45 AM CDT DTL Anion Gap 15 7 - 15 06/24/2023 9:45 AM CDT DTL BUN (Blood Urea Nitrogen), S 36(H) 8 - 24 mg/dL 06/24/2023 9:45 AM CDT DTL Creatinine 1.97(H) 0.74 - 1.35 mg/dL 06/24/2023 9:45 AM CDT DTL Estimated GFR (eGFR) 34(L) >=60 mL/min/BSA 06/24/2023 9:45 AM CDT DTL Comment: Estimated GFR calculated using the 2020 CKD_EPI creatinine equation. Calcium, Total, S 9.0 8.8 - 10.2 mg/dL 06/24/2023 9:45 AM CDT DTL Glucose, S 113 70 - 140 mg/dL 06/24/2023 9:45 AM CDT DTL Blood (Blood, Venous) 06/24/2023 8:26 AM CDT 06/24/2023 8:59 AM CDT Christofer SHETTY, P.A.-C. LAB BLOOD ADD-ON [facility] [address] [place] [address], [place] [facility] [address] [place] [address] from Last 3 Months Advance Directives For more information, please contact: [phone] Documents on File Type Date Recorded Patient A/C Tech Expl anation Advance Directives 05/29/2011 12:00 AM Leg acy document. See document viewer. * Full Code (Latest Code Status on File) Date Activated Date Inactivated Comments 10/13/2022 11:41 AM 10/14/2022 2:29 PM Question Answer Comments Full Code: Discussed Care Teams Combustion Analyst Relationship Specialty Start Date End Date None Reported, Pcp PCP - General Family Medicine 10/13/22
--- OUTSIDE RECORDS SUMMARY | 2023-08-27 07:42 | XMS_ITS | Clinical Summary ---
Author Name Unknown Organization [facility] Address [address] [place] [address] Care Team Providers Care Home Care And Home Health Aides Teacher Name Role Phone None Reported, Pcp Primary Care Provider Unavail able Source Comments Patient records contain information from all sites at [facility]. For routine questions regarding patient records, call [phone] during business hours, M-F 8:00 AM - 5:00 PM Central Time. 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 Barby Ojeda APRN CLilianaN.P., M.S.N. Malignant Neoplasm Of Bladder (HCC) (Primary Dx) 06/24/2023 1:15 PM CDT Procedure visit Department of Urology in [place], [place] [address] [place] [phone] Christofer Newman MPAS, P.A.-C. Evelyn Ledesma R.N., ALAYNA Urostomy Status Post (HCC) 06/24/2023 9:51 AM CDT - 06/24/2023 11:59 PM CDT Hospital Encounter Department of Radiology, [facility], in [place], [place] [address] [place] [phone] Christofer Newman MPAS, P.A.-C. Malignant Neoplasm Of Bladder (HCC) Discharge Disposition: Home or Self Care 06/24/2023 9:00 AM CDT Lab Department of Urology in [place], [place] [address] [place] [phone] Christofer Newman MPAS, P.A.-C. Madhuri Goel, RLilianaN. Malignant Neoplasm Of Bladder (HCC) 06/24/2023 8:00 AM CDT - 06/24/2023 9:50 AM CDT Hospital Encounter Department of Laboratory Medicine and Pathology, [facility] in [place], [place] [address] [place] [phone] Christofer Newman MPAS, P.A.-C. Malignant Neoplasm Of Bladder (HCC) Discharge Disposition: Home or Self Care 06/22/2023 9:15 AM CDT Clinical Communication Virtual Review in [place], [place] [address] [place] [phone] Pre-visit Intake from Last 3 Months Immunizations Name Administration Dates Next Due SARS-COV-2 (COVID-19) - PFIZ ER (Discontinued)(12 years or older) 01/04/2021,06/16/2020,05/26/2020 Family History Medical History Relation Name Comments Coronary artery disease Brother Freddy Dwyer Sten ts, 2021 Hyperlipidemia Brother Freddy Dwyer Hypertension Brother Freddy Dwyer Kidney disease Brother Freddy Dwyer Stroke Brother Freddy Dwyer Prostate cancer Father Sedrick Dwyer Other cancer Mother Corrine Dwyer unknown cancer, stomach area, liver? Hyperlipidemia Sister Lyndsay Eliel Hypertension Sister Lyndsay Eliel Other cancer Sister Lyndsay Eliel 2021, hear t attack Relation Name Status Comments Brother Freddy Dwyer Father Sedrick Dwyer Mother Corrine Dwyer Sister Lyndsay Eliel Social History Tobacco Use Types Packs/Day Years Used Date Smoking Tobacco: Former Cigarettes 0 04/22/1959 - 04/22/1989 Smokeless Tobacco: Never Tobacco Cessation:Counseling Given: Not Answered Alcohol Use Standard Drinks/Week Comments Yes 8 (1 standard drink = 0.6 oz pur e alcohol) 1 cup coffee daily [employer] Answer Date Recorded In the past 12 months has e [employer], gas, oil, or water [employer] threatened to shut off services in your [...] often do you attend chur ch or orthodoxy services? Patient declined 05/28/2022 Do you belong to any clubs o r organizations such as rastafarian groups, unions, fraternal or athletic groups, or [...] care, and heating? Not very hard 09/05/2022 [facility] - Occupational [...] your living situation today? I have a [facility] place to live 06/20/2023 Education Answer Date Recorded What is the highest level of school you have completed or the highest degree you have received? Bachelor's degree (e.g., BA, AB, BS) 05/16/2019 Sex and Gender Information Value Date Recorded Sex Assigned at Male 01/13/2020 10:41 AM CDT Gender Identity Male 04/11/2018 8:29 AM NICKEL PLATER Sexual Orientation Straight 04/11/2018 8: 29 AM NICKEL PLATER Last Filed Vital Signs Vital Sign Reading [...] 10/13/2022 10:47 AM CDT Plan of Treatment Health Maintenance Due Date Last Done Comments Visit: Chronic Disease, age 18+ 1940 Visit: Medicare Annual Wellness 1940 Office Visit for Blood Press ure Check / Re-check 11/19/2022 08/19/2022 COVID-19 Vaccine ( - 2022-2 4 season) 2022 12/26/2021, 07/09/2021, 01/04/2021, Additional history exists Depression Screening (Annual PHQ-2) 04/13/2023 Creatinine Level (Kidney Fun ction Test) 06/23/2024 06/24/2023, 06/09/2022, 06/09/2022, Additional history exists Potassium Level 06/23/2024 06/24/2023, 05/15, 06/05/2021, Additional history exists Sodium Level 06/23/2024 06/24/2023, 0706/2022, 06/09/2022, Additional history exists DTaP,Tdap,and Td Vaccines (3 - Td or Tdap) 04/28/2032 04/28/2022, 12/31/2012, 04/25/2004, Additional history exists Pneumococcal vaccine (65+ years) Completed 12/16/2017, 10/23/2014, 12/31/2012, Additional history exists Zoster Vaccines Completed 09/04/2021, 08/11, 12/16/2017, Additional history exists Influenza Vaccine Completed 12/19/2022, , 02/04/2021, Additional history exists Fall Risk Screen (Annual) Completed 06/24/2023 Lung Cancer Screening Discontinued 06/24/2023 , 06/09/2022, 05/26/2019, Additional history exists Medical Devices Implanted Type Area Auto Adjudication Specialist Device Identifier Shelf Expiration Date Model / Serial / Lot Clp Hrzn Ti 6 Satya Horvath Lorne - [id number] Implanted:Qty: 1 on 10/13/2022 by Tam Stoddard M.D. at [facility] Hardware e.g. pins/screws/ rods Neck [employer] [id number] / / Clp Hrzn Ti 6 Satya Horvath Lorne - [id number] Implanted:Qty: 1 on 10/13/2022 by Tam tSoddard M.D. at [facility] Hardware e.g. pins/screws/ rods [employer] [id number] / / Clp Hrzn Ti 6 Clp Red - [id number] Implanted:Qty: 1 on 10/13/2022 by Tam Stoddard M.D. at [facility] Hardware e.g. pins/screws/ rods Neck [employer] / / Clp Hrzn Ti 6 Clp Sm Red - [id number] Implanted:Qty: 1 on 10/13/2022 by Tam Stoddard M.D. at [facility] Hardware e.g. pins/screws/ rods Neck [employer] / / Stent Uret Single J 7 X 90cm - [id number] Implanted:Qty: 1 on 05/29/2011 Ureteral Stent Other/Legacy - See Implant Description Description:Device Manufactu rer - Circon Surgi. Device Status Text - [id number]. Explanted Type Area Auto Adjudication Specialist Device Identifier Shelf Expiration Date Model / Serial / Lot Filter [place] Vena Cava- Jugular - [id number] Implanted:Qty: 1 on 06/23/2011 Explanted:2011 (Quantity not on file) Vascular or IVC Filter Right: Chest C.R.Bard Description:Device Manufactu rer - Bard Access. Device Status Text - [id number]. Procedures Procedure Name Priority Date/Time Associated Diagnosis Comments CT CHEST WITH IV CONTRAST RAD - Routine (most inpatients and all outpatients) 06/24/2023 12:36 PM CDT Malignant Neoplasm Of Bladder (HCC) CT UROGRAM WITHOUT AND WITH IV CONTRAST RAD - Routine (most inpatients and all outpatients) 06/24/2023 12:36 PM CDT Malignant Neoplasm Of Bladder (HCC) CYTOLOGY NON-BORING MACHINE OPERATOR VERTICAL Routine 06/24/2023 8:51 AM CDT Malignant Neoplasm [...] disease inthe abdomen or pelvis. Christofer SHETTY, P.ALiliana-Mendy. IMG CT [place] OCEDURES * CT Chest with IV Contrast [...] thyroid lobectomy. Christofer SHETTY PBing. IMG CT [place] OCEDURES * Cytology Non-BORING MACHINE OPERATOR VERTICAL (06/24/2023 8:51 AM CDT) 06/29/2023 2:55 PM CDT DTL Fixative NA 06/29/2023 2:55 PM CDT DTL Report electronically signed by Mayo Bailey, Slava I verify that I have examined all [...] LAB SURG PATH ORDERABLES Performing Organization Address [facility]/ZIP Co de Phone Number [facility] [address] [place] [address], [facility] DTL 200 [facility] 200 [place] [address] * CBC without Differential (06/24/2023 8:26 AM [...] P.A.-C. LAB BLOOD ADD-ON Performing Organization Address City/[facility]/ZIP Co de Phone Number [facility] [address] [place] [address], [facility] DTL [facility] [address] [place] [address] * Vitamin B12 Assay (06/24/2023 8:26 AM CDT) Pathologist [facility] Vitamin B12 Assay, S 221 180 - [...] CDT Christofer SHETTY, P.A.-C. LAB BLOOD ADD-ON [address] [address], [facility] [address] [place] [address] * (ABNORMAL) Basic Metabolic Panel (06/24/2023 8:26 AM CDT) Pathologist [facility] Potassium, S 4.3 3.6 - 5.2 mmol/L [...] CDT Christofer SHETTY, P.A.-C. LAB BLOOD ADD-ON [facility] [address] [place] [address], [place] [facility] [address] [place] [address] from Last 3 Months Advance Directives For more information, please contact: [phone] Documents on File Type Date Recorded Patient Sales And Training Specialist Expl anation Advance Directives 05/29/2011 12:00 AM Leg acy document. See document viewer. * Full Code (Latest Code Status on File) Date Activated Date Inactivated Comments 10/13/2022 11:41 AM 10/14/2022 2:29 PM Question Answer Comments Full Code: Discussed Care Teams Home Care And Home Health Aides Teacher Relationship Specialty Start Date End Date None Reported, Pcp PCP - General Family Medicine 10/13/22
--- OUTSIDE RECORDS SUMMARY | 2023-08-27 07:42 | XMS_ITS | Encounter Summary ---
Author Name Unknown Organization [facility] Address [address] [place] [address] Care Team Providers Care Sorter Operator Name Role Phone None Reported, Pcp Primary Care Provider Unavail able Encounter Details Date Type Department Care Team (Late st Contact Info) Description 06/24/2023 9:00 AM CDT Lab Department of Urology in [place], [place] [address] [place] [phone] Christofer Newman, MPAS, P.A.-C. [address] [place] [phone] Madhuri Goel, R.NLiliana [address] [place] [phone] Malignant Neoplasm Of Bladder (HCC) Social History Tobacco Use Types Packs/Day Years Used Date Smoking Tobacco: Former Cigarettes 0 04/22/1959 - 04/22/1989 Smokeless Tobacco: Never Alcohol Use Standard Drinks/Week Comments Yes 8 (1 standard drink = 0.6 oz pur e alcohol) 1 cup coffee daily [facility] Utilities Answer Date Recorded In the past 12 months has e [employer], gas, oil, or water company threatened to [...] How often do you attend chur or confucianism services? Patient declined 05/28/2022 Do you belong to any clubs o r organizations such as religion groups, unions, fraternal or athletic groups, or [...] care, and heating? Not very hard 09/05/2022 [facility] [place] of Occupat ional Health - Occupational Stress [...] your living situation today? I have a [employer] place to live 06/20/2023 Education Answer Date Recorded What is the highest level of school you have completed or the highest degree you have received? Bachelor's degree (e.g., BA, AB, BS) 05/16/2019 Sex and Gender Information Value Date Recorded Sex Assigned at Male 01/13/2020 10:41 AM CDT Gender Identity Male 04/11/2018 8:29 AM BUSINESS EDUCATION INSTRUCTOR Sexual Orientation Straight 04/11/2018 8: 29 AM BUSINESS EDUCATION INSTRUCTOR documented as of this encounter Progress Notes * Madhuri Goel R.N. - 06/24/2023 9:00 AM CDT Specimen Collection Specimen type: stoma cytology Specimen route: Stoma Patient tolerated procedure: Yes Madhuri Goel R.N. documented in this encounter Plan of Treatment Not on file documented as of this encounter Procedures Procedure Name Priority Date/Time Associated Diagnosis Comments CYTOLOGY NON-PRECISION GRINDER EXTERNAL Routine 06/24/2023 8:51 AM CDT Malignant Neoplasm Of Bladder (HCC) documented in this encounter Results * Cytology Non-PRECISION GRINDER EXTERNAL (06/24/2023 8:51 AM CDT) 06/29/2023 2:55 PM [...] CDT 06/24/2023 11:05 AM CDT Christofer SHETTY PLilianaAEssence. LAB SURG PATH ORDERABLES [facility] [address] [place] [address], [facility] [address] [place] [address] documented in this encounter Visit Diagnoses Diagnosis Malignant Neoplasm Of Bladder (HCC) documented in this encounter Care Teams Sorter Operator Relationship Specialty Start Date End Date None Reported, Pcp PCP - General Family Medicine 10/13/22 documented as of this encounter
--- OUTSIDE RECORDS SUMMARY | 2023-08-27 07:42 | XMS_ITS | Encounter Summary ---
Author Name Unknown Organization [facility] Address [address] [place] [address] Care Team Providers Care Cutter Grinder Name Role Phone None Reported, Pcp Primary Care Provider Unavail able Encounter Details Date Type Department Care Team (Latest Contact Info) Description 06/24/2023 8:00 AM CDT - 06/24/2023 9:50 AM CDT Hospital Encounter Department of Laboratory Medicine and Pathology, [facility] in [place], [place] [address] [place] [phone] Christofer Newman, MPAS, P.A.-C. [address] [place] [phone] Malignant Neoplasm Of Bladder (HCC) Discharge Disposition: Home or Self Care Social History Tobacco Use Types Packs/Day Years Used Date Smoking Tobacco: Former Cigarettes 0 04/22/1959 - 04/22/1989 Smokeless Tobacco: Never Alcohol Use Standard Drinks/Week Comments Yes 8 (1 standard drink = 0.6 oz pur e alcohol) 1 cup coffee daily [facility] Utilities Answer Date Recorded In the past 12 months has [employer], gas, oil, or water company threatened [...] How often do you attend chur or samaritan services? Patient declined 05/28/2022 Do you belong to any clubs o r organizations such as lutheran groups, unions, fraternal or athletic groups, or [...] care, and heating? Not very hard 09/05/2022 [facility] of Occupat ional Health - Occupational Stress [...] your living situation today? [facility] place to [facility] 06/20/2023 Education Answer Date Recorded What is the highest level of school you have completed or the highest degree you have received? Bachelor's degree (e.g., BA, AB, BS) 05/16/2019 Sex and Gender Information Value Date Recorded Sex Assigned at Male 01/13/2020 10:41 AM CDT Gender Identity Male 04/11/2018 8:29 AM ED TECH Sexual Orientation Straight 04/11/2018 8: 29 AM ED TECH documented as of this encounter Medications at [...] 2 (two) times a day. DME Bi-level PAPIndications:Central Sleep Apnea Syndrome,Apnea Sleep Obstructive DME Order 1 each 06/12/2021 KRILL OIL ORAL Take 1 capsule [...] capsule Take 500 mg by mouth daily. documented as of this encounter Plan of Treatment Not on file documented as of this encounter Procedures Procedure Name Priority Date/Time Associated Diagnosis Comments CBC WITHOUT DIFFERENTIAL, B Routine 06/24/2023 8:26 AM CDT Malignant Neoplasm Of Bladder (HCC) VITAMIN B12 ASSAY, S Routine 06/24/2023 8:26 AM CDT Malignant Neoplasm Of Bladder (HCC) BASIC METABOLIC PANEL, S/P Routine 06/24/2023 8:26 AM CDT Malignant Neoplasm Of Bladder (HCC) documented in this encounter Results * Vitamin B12 Assay (06/24/2023 8:26 AM CDT) Vitamin B12 Assay, S 221 180 - [...] AM CDT 06/24/2023 8:59 AM CDT Christofer SHETTY P.A.-C. LAB BLOOD ADD-ON [facility] 200 [place] [address], [facility] 200 [place] [address] * CBC without Differential (06/24/2023 8:26 AM [...] 8:26 AM CDT 06/24/2023 8:45 AM CDT Kat Rodriguez.A.-C. LAB BLOOD ADD-ON [facility] 200 [place] [address], [facility] 200 [place] [address] * (ABNORMAL) Basic Metabolic Panel (06/24/2023 8:26 AM CDT) Potassium, S 4.3 3.6 - 5.2 mmol/L [...] CDT Christofer SHETTY, P.A.-C. LAB BLOOD ADD-ON [facility] [address] [place] [address], [facility] 200 [place] [address] documented in this encounter Visit Diagnoses Diagnosis Malignant Neoplasm Of Bladder (HCC) documented in this encounter Care Teams Cutter Grinder Relationship Specialty Start Date End Date None Reported, Pcp PCP - General Family Medicine 10/13/22 documented as of this encounter
--- OUTSIDE RECORDS SUMMARY | 2023-08-27 07:42 | XMS_ITS ---
Author Name Unknown Organization [facility] Address [address] [place] [address] Care Team Providers Care Hot Dog Vender Name Role Phone Unavailable Unavailable Unavailable Surgery Details Not on file Complications Check Surgery Details section. Procedure Estimated Blood Loss Check Surgery Details section. Procedure Findings Check Surgery Details section. Procedure Specimens Taken Check Surgery Details section.
--- OUTSIDE RECORDS SUMMARY | 2023-08-27 07:42 | XMS_ITS | Encounter Summary ---
Author Name Unknown Organization [facility] Address [address] [place] [address] Care Team Providers Care Wire Welder Name Role Phone None Reported, Pcp Primary Care Provider Unavail able Reason for Visit * Reason Onset Date Comments Pre-visit Intake 06/22/2023 Encounter Details Date Type Department Care Team (Latest Contact Info) Description 06/22/2023 9:15 AM CDT Clinical Communication Virtual Review in [place], [place] [address] [place] [phone] Pre-visit Intake Social History Tobacco Use Types Packs/Day Years Used Date Smoking Tobacco: Former Cigarettes 0 04/22/1959 - 04/22/1989 Smokeless Tobacco: Never Alcohol Use Standard Drinks/Week Comments Yes 8 (1 standard drink = 0.6 oz pur e alcohol) 1 cup coffee daily [employer] Utilities Answer Date Recorded In the past 12 months has [employer], gas, oil, or water [employer] threatened to shut off services in your [...] How often do you attend chur or rastafarian services? Patient declined 05/28/2022 Do you belong to any clubs o r organizations such as evangelical groups, unions, fraternal or athletic groups, or [...] care, and heating? Not very hard 09/05/2022 [facility] - Occupational Stress Questionnaire Answer Date Recorded [...] your living situation today? I have a [employer] place to live 06/20/2023 Education Answer Date Recorded What is the highest level of school you have completed or the highest degree you have received? Bachelor's degree (e.g., BA, AB, BS) 05/16/2019 Sex and Gender Information Value Date Recorded Sex Assigned at Male 01/13/2020 10:41 AM CDT Gender Identity Male 04/11/2018 8:29 AM PRIVATE INVESTIGATOR SURVEILLANCE Sexual Orientation Straight 04/11/2018 8: 29 AM PRIVATE INVESTIGATOR SURVEILLANCE documented as of this encounter Plan of Treatment Not on file documented as of this encounter Visit Diagnoses Not on filedocumented in this encounter Care Teams Wire Welder Relationship Specialty Start Date End Date None Reported, Pcp PCP - General Family Medicine 10/13/22 documented as of this encounter
--- OUTSIDE RECORDS SUMMARY | 2023-08-27 07:42 | XMS_ITS | Encounter Summary ---
Author Name Unknown Organization [facility] Address [address] [place] [address] Care Team Providers Care Mobile Homes Repairer Name Role Phone None Reported, Pcp Primary Care Provider Unavail able Reason for Referral * MRI/CAT/PET Scan (Routine) - Authorized Specialty Diagnoses / Procedures Referred By Contac t Referred To Contact Radiology Diagnoses Malignant Neoplasm Of Bladder (HCC) Procedures CT Urogram without and with IV Contrast Barby Ojeda APRN, C.NKiera, M.S.N. [address] [place] [phone] [facility] Referral ID Status Reason Start Date Expiration Date V isits Requested Visits Authorized [id number] Authorized 06/24/2023 06/23/2024 1 1 * MRI/CAT/PET Scan (Routine) - Authorized Specialty Diagnoses / Procedures Referred By Contac t Referred To Contact Radiology Diagnoses Malignant Neoplasm Of Bladder (HCC) Procedures CT Chest with IV Contrast Barby Ojeda APRN, C.NKiera, M.S.N. [address] [place] [phone] [facility] Referral ID Status Reason Start Date Expiration Date V isits Requested Visits Authorized [id number] Authorized 06/24/2023 06/23/2024 1 1 * Outpatient (Routine) - Authorized Specialty Diagnoses / Procedures Referred By Amaya cook Referred To Contact Urology Barby Ojeda APRN, C.N.P., M.S.N. [address] [place] [phone] [facility] Referral ID Status Reason Start Date Expiration Date V isits Requested Visits Authorized [id number] Authorized 06/24/2023 12/23/2024 1 1 Reason for Visit * Outpatient (Routine) - Closed Specialty Diagnoses / Procedures Referred By Amaya cook Referred To Contact Urology Christofer Newman MPAS, P.A.-CLiliana [address] [place] [phone] [facility] Referral ID Status Reason Start Date Expiration Date Visits Re quested Visits Authorized [id number] Closed 06/09/2022 06/08/2025 1 1 Encounter Details Date Type Department Care Team (Late st Contact Info) Description 06/24/2023 3:30 PM CDT Office Visit Department of Urology in [place], [place] [address] [place] [phone] Christofer Newman MPAS, P.A.-CLiliana [address] [place] [phone] Barby Ojeda APRN, C.N.P., M.S.N. [address] [place] [phone] Malignant Neoplasm Of Bladder (HCC) (Primary Dx) Social History Tobacco Use Types Packs/Day Years Used Date Smoking Tobacco: Former Cigarettes 0 04/22/1959 - 04/22/1989 Smokeless Tobacco: Never Alcohol Use Standard Drinks/Week Comments Yes 8 (1 standard drink = 0.6 oz pur e alcohol) 1 cup coffee daily [facility] Utilities Answer Date Recorded In the [...] week 05/28/2022 How often do you attend [facility] or episcopalian services? Patient declined 05/28/2022 Do you belong to any clubs o r organizations such as christianity groups, unions, fraternal or athletic groups, or [...] care, and heating? Not very hard 09/05/2022 [facility] [place] of Occupat ional Health - Occupational Stress [...] CDT Gender Identity Male 04/11/2018 8:29 AM BUILDING SERVICES COORDINATOR Sexual Orientation Straight 04/11/2018 8: 29 AM BUILDING SERVICES COORDINATOR documented as of this encounter Progress Notes * Barby Ojeda APRN, C.N.P., M.S.N. - 06/24/2023 3:30 PM CDT SUBJECTIVE CHIEF COMPLAINT/REASON FOR VISIT Bladder cancer recheck Patient of Dr. Randhawa seen on survivorship calendar HISTORY OF PRESENT ILLNESS Mr. Dwyer is an 82-year-old male who presents today for follow up of his bladder cancer. 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 He is s/p radical cystoprostatectomy with ileal conduit urinary diversion with Dr. 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 Extranodal extension was identified in the lymph node on the left common iliac chain. He subsequently underwent adjuvant chemotherapy with 6 cycles of gem/cis. Unfortunately, the chemotherapy did impact his creatinine. 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 He was on chronic anticoagulation due to this. He has been surveilled without evidence of recurrence since. In 2019 on evaluation, he was noted to find inflammatory and thickening of his upper tracts that were biopsied by Dr Ron in September 2019, with benign findings. He was last seen in May 2022. At that time, it was found to have stable pulmonary nodules, growth of a thyroid nodule (since August 2019), and progressively worsening creatinine. He was declined to meet nephrology in the past. He was evaluated by EMS for the thyroid nodule growth and ultimately underwent a thyroidectomy/lobectomy in October 2022 with benign final pathology. The following portions of the patient's history were reviewed and updated as appropriate: allergies, current medications, family history, medical history, social history, surgical history, and problem list. REVIEW OF SYSTEMS REVIEW OF SYSTEMS OBJECTIVE EXAM: CT UROGRAM WITHOUT AND WITH IV CONTRAST COMPARISON: 06/09/2022 FINDINGS: Postoperative changes of cystoprostatectomy with right lower quadrant urinary diversion. No significant interval change in the moderate dilatation of the left ureter and intrarenal collecting system with mildly irregular narrowing distally near the anastomosis. Persistent diffuse thickening and enhancement and wall of the left intrarenalcollecting system and ureter and perihilar and periureteric [...] the chest, which will be reported separately. IMPRESSION: 1. Stable diffuse thickening and enhancement of the wall of the left intrarenal collecting system and ureter with periureteral inflammation. Stable dilatation of the left intrarenal collecting systemand ureter with mildly irregular narrowing distally. 3. New mobile intraluminal debris within the left renal pelvis. 4. No specific CT findings to suggest recurrent or metastatic disease in the abdomen or pelvis. 06/24/23 : CT CHEST WITH IV CONTRAST COMPARISON: Chest [...] the abdomen, which will be reported separately. IMPRESSION: 1. No evidence of metastatic disease in the chest. 2. Interval left thyroid lobectomy. PHYSICAL EXAM URO Physical Exam ASSESSMENT / PLAN #1 Malignant Neoplasm Of Bladder (HCC) Is a pleasure to meet Mr. Dwyer today in clinic with his . Together, we reviewed his CT urogram showed no convincing evidence for recurrent or metastatic disease however there was some new mobile intraluminal debris within the renal pelvis. CT chest showed no evidence of metastatic disease throughout the chest. We did discuss his worsening creatinine, up to 1.97 up from 1.3. We discussed renalprotective behaviors. he was encouraged to arrange a nephrology consult either here or locally. We discussed that his overall labs were otherwise reassuring, with B12 being within normal range and CBC and electrolytes all stable. Cytology is pending. We discussed ongoing follow up. At this juncture, we will plan to see him back in [address] chest, CT urogram, CBC, BMP, urine cytology, vitamin B12, and office visit. Signed by: Barby Ojeda APRN, C.NKiera, M.S.N. 06/24/2023 12:23 PM CDT documented in this encounter Plan of Treatment Scheduled Orders Name Type Priority Associated Diagnoses Order Schedule Basic Metabolic Panel Lab Routine Malignant Neoplasm Of Bladder (HCC) Expected: 06/23/2024, Expires: 09/23/2024 CBC with Differential, Blood Lab Routine Malignant Neoplasm Of Bladder (HCC) Expected: 06/23/2024, Expires: 09/23/2024 Cytology Non-CHAR PULLER Pathology and Cytology Routine Malignant Neoplasm Of Bladder (HCC) Expected: 06/23/2024, Expires: 09/23/2024 Vitamin B12 Assay Lab Routine Malignant Neoplasm Of Bladder (HCC) Expected: 06/23/2024, Expires: 09/23/2024 CT Chest with IV Contrast Imaging RAD - Routine (most inpatients and all outpatients) Malignant Neoplasm Of Bladder (HCC) Expected: 06/23/2024, Expires: 09/23/2024 CT Urogram without and with IV Contrast Imaging RAD - Routine (most inpatients and all outpatients) Malignant Neoplasm Of Bladder (HCC) Expected: 06/23/2024 (Approximate), Expires: 09/23/2024 Scheduled Referrals Name Type Priority Associated Diagnoses Orde r Schedule Urology office visit (clinic) Outpatient Referral Routine Expected: 06/23/2024, Expires: 09/23/2024 documented as of this encounter Visit Diagnoses Diagnosis Malignant Neoplasm Of Bladder (HCC)- Primary documented in this encounter Care Teams Mobile Homes Repairer Relationship Specialty Start Date End Date None Reported, Pcp PCP - General Family Medicine 10/13/22 documented as of this encounter
== END 2023-08-25 08:11 | disposition home or self-care (01) ==
LOC: NFLDREF 08-27 07:25
PROVIDERS: PCP Internal Medicine; Referring Provider Internal Medicine; Visit Provider Internal Medicine
DX: C61 Malignant neoplasm of prostate (principal); E78.5 Hyperlipidemia, unspecified; I10 Essential (primary) hypertension
CPT/HCPCS: 80053; 80061; G0103

== ENCOUNTER 2023-12-29 11:25 | Outpatient (CLI) | payer MEDICARE, SELFPAY ==
--- OUTSIDE RECORDS SUMMARY | 2023-12-29 11:27 | XMS_ITS | Referral Summary ---
Author Organization [facility] Address [address] [place] [address] Care Team Providers Care Water Resource Agent Name Role Phone Gaetano Mariscal MD Primary [...] Comments Blood Pressure 133/65 04/02/2017 3:00 PM VINYL WELDER AND FABRICATOR Pulse 57 04/02/2017 3:00 PM VINYL WELDER AND FABRICATOR Temperature 35.9 ??C (96.6 ??F) 04/02/2017 3:00 PM CS T Respiratory Rate 16 04/02/2017 3:00 PM VINYL WELDER AND FABRICATOR Oxygen Saturation 99% 04/01/2017 2:23 PM VINYL WELDER AND FABRICATOR Inhaled Oxygen Concentration - - Weight 143 kg (315 lb 3.2 oz) 03/24/2017 7:04 AM VINYL WELDER AND FABRICATOR Height 190.5 cm (6' 3) 03/19/2017 8:55 PM VINYL WELDER AND FABRICATOR Body Mass Index 39.4 03/19/2017 8:55 PM VINYL WELDER AND FABRICATOR Plan of Treatment Not on file Advance Directives For more information, please contact: [phone] * Full Code (Latest Code Status on File) Date Activated Date Inactivated Comments 03/24/2017 1:29 PM * Full Code Date Activated Date Inactivated Comments 03/19/2017 9:00 PM 03/24/2017 1:29 PM Care Teams Water Resource Agent Relationship Specialty Start Date End Date Gaetano Mariscal MD [facility] [address] [place] [address] PCP - General Emergency Medicine 03/19/17
--- OUTSIDE RECORDS SUMMARY | 2023-12-29 11:27 | XMS_ITS | Clinical Summary ---
Author Organization [place] [facility] Address [address] [place] [address] Care Team Providers Care Supervisor Cooler Service Name Role Phone Gaetano Mariscal MD Primary [...] Comments Blood Pressure 133/65 04/02/2017 3:00 PM SERVICE GIRL Pulse 57 04/02/2017 3:00 PM SERVICE GIRL Temperature 35.9 ??C (96.6 ??F) 04/02/2017 3:00 PM CS T Respiratory Rate 16 04/02/2017 3:00 PM SERVICE GIRL Oxygen Saturation 99% 04/01/2017 2:23 PM SERVICE GIRL Inhaled Oxygen Concentration - - Weight 143 kg (315 lb 3.2 oz) 03/24/2017 7:04 AM SERVICE GIRL Height 190.5 cm (6' 3) 03/19/2017 8:55 PM SERVICE GIRL Body Mass Index 39.4 03/19/2017 8:55 PM SERVICE GIRL Plan of Treatment Not on file Advance Directives For more information, please contact: [phone] * Full Code (Latest Code Status on File) Date Activated Date Inactivated Comments 03/24/2017 1:29 PM * Full Code Date Activated Date Inactivated Comments 03/19/2017 9:00 PM 03/24/2017 1:29 PM Care Teams Supervisor Cooler Service Relationship Specialty Start Date End Date Gaetano Mariscal MD [facility] [address] [place] [address] PCP - General Emergency Medicine 03/19/17
--- OUTSIDE RECORDS SUMMARY | 2023-12-29 11:27 | XMS_ITS | Clinical Summary ---
Author Organization [facility] Address [address] [place] [address] Care Team Providers Care Road Cutter Name Role Phone None Reported, Pcp Primary Care Provider Unavail able Source Comments Patient records contain information from all sites at [facility]. For routine questions regarding patient records, call [phone] during business hours, M-F 8:00 AM - 5:00 PM Central Time. 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 Overview (10/05/2019): 2 stents placed 2005 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 Chronic Kidney Disease Or Unspecified Chronic Kidney Disease Hyperlipidemia Resolved Problems Problem Noted Date Diagnosed Date Resolved Date Benign Prostatic Hyperplasia With Lower Urinary Tract Symptom 07/25/2009 05/15/2023 Overview (06/02/2022): LW Modifier: s/p TURP ; BPH Age [...] Sedrick Dwyer Mother Corrine Dwyer Sister Lyndsay Pateloer Social History Tobacco Use Types Packs/Day Years Used Date Smoking Tobacco: Former Cigarettes 0 04/22/1959 - 04/22/1989 Smokeless Tobacco: Never Tobacco Cessation:Counseling Given: Not Answered Alcohol Use Standard Drinks/Week Comments Yes 8 (1 standard drink = 0.6 oz pur e alcohol) 1 cup coffee daily [employer] Answer Date Recorded In the past 12 months has e [employer], gas, oil, or water [employer] threatened to shut off services in your [...] How often do you attend chur or mandaen services? Patient declined 05/28/2022 Do you belong [...] care, and heating? Not very hard 09/05/2022 [facility] [place] of Occupat ional Health - Occupational Stress [...] your living situation today? I have a [facility] place to live 06/20/2023 Education Answer Date Recorded What is the highest level of school you have completed or the highest degree you have received? Bachelor's degree (e.g., BA, AB, BS) 05/16/2019 Sex and Gender Information Value Date Recorded Sex Assigned at Male 01/13/2020 10:41 AM CDT Gender Identity Male 04/11/2018 8:29 AM VOICE ENGINEER Sexual Orientation Straight 04/11/2018 8: 29 AM VOICE ENGINEER Last Filed Vital Signs Vital Sign Reading [...] Press ure Check / Re-check 11/19/2022 08/19/2022 Depression Screening (Annual PHQ-2) 04/13/2023 COVID-19 Vaccine (2022-2 4 season) 2023 12/26/2021, 07/09/2021, 01/04/2021, Additional history exists Influenza Vaccine (#1) 2024 , 12/26/2021, 02/04/2021, Additional history exists Creatinine Level (Kidney Fun ction Test) 06/23/2024 06/24/2023, 06/09/2022, 06/09/2022, Additional history exists Potassium Level 06/23/2024 06/24/2023, 05/15, 06/05/2021, Additional history exists Sodium Level 06/23/2024 06/24/2023, 07/0 06/2022, 06/09/2022, Additional history exists DTaP,Tdap,and Td Vaccines (3 - Td or Tdap) 04/28/2032 04/28/2022, 12/31/2012, 04/25/2004, Additional history exists Pneumococcal vaccine (65+ years) Completed 12/16/2017, 10/23/2014, 12/31/2012, Additional history exists Zoster Vaccines Completed 09/04/2021, 08/11, 12/16/2017, Additional history exists Fall Risk Screen (Annual) Completed 06/24/2023 Lung Cancer Screening Discontinued 06/24/2023 , 06/09/2022, 05/26/2019, Additional history exists Medical Devices Implanted Type Area Merchant Police Device Identifier Shelf Expiration Date Model / Serial / Lot Clp Hrzn Ti 6 Satya Horvath Lorne - [id number] Implanted:Qty: 1 on 10/13/2022 by Tam Stoddard M.D. at [facility] Hardware e.g. pins/screws/ rods Neck [employer] [id number] / / Clp Hrzn Ti 6 Satya Horvath Lorne - [id number] Implanted:Qty: 1 on 10/13/2022 by Tam Stoddard M.D. at [facility] Hardware e.g. pins/screws/ rods [employer] [id number] / / Clp Hrzn Ti 6 Satya Red - [id number] Implanted:Qty: 1 on 10/13/2022 by Tam Stoddard M.D. at [facility] Hardware e.g. pins/screws/ rods Neck [employer] / / Clp Hrzn Ti 6 Clp Sm Red - [id number] Implanted:Qty: 1 on 10/13/2022 by Tam Stoddard M.D. at [facility] Hardware e.g. pins/screws/ rods Neck [employer] / / Stent Uret Single J 7 X 90cm - [id number] Implanted:Qty: 1 on 05/29/2011 Ureteral Stent Other/Legacy - See Implant Description Description:Device Manufactu rer - Circon Surgi. Device Status Text - [id number]. Explanted Type Area Merchant Police Device Identifier Shelf Expiration Date Model / Serial / Lot Filter [place] Vena Cava- Jugular - [id number] Implanted:Qty: 1 on 06/23/2011 Explanted:2011 (Quantity not on file) Vascular or IVC Filter Right: Chest C.R.Bard Description:Device Manufactu rer - Bard Access. Device Status Text - [id number]. Procedures Procedure Name Priority Date/Time Associated Diagnosis Comments CT CHEST WITH IV CONTRAST RAD - Routine (most inpatients and all outpatients) 06/24/2023 12:36 PM CDT Malignant Neoplasm Of Bladder (HCC) BASIC METABOLIC PANEL, S/P Routine 06/24/2023 8:26 AM CDT Malignant Neoplasm Of Bladder (HCC) from Last 3 Months or Most Recently Relevant to Health Maintenance Results * CT Chest with IV Contrast [...] 2. Interval left thyroid lobectomy. Christofer SHETTY, P.A.-C. [facility] [place] OCEDURES * (ABNORMAL) Basic Metabolic Panel (06/24/2023 8:26 [...] CDT Christofer SHETTY, P.A.-C. LAB BLOOD ADD-ON [facility] [address] [place] [address], [facility] [address] [place] [address] from Last 3 Months or Most Recently Relevant to Health Maintenance Advance Directives For more information, please contact: [phone] Documents on File Type Date Recorded Patient Manager Home Healthcare Expl anation Advance Directives 05/29/2011 12:00 AM Leg acy document. See document viewer. * Full Code (Latest Code Status on File) Date Activated Date Inactivated Comments 10/13/2022 11:41 AM 10/14/2022 2:29 PM Question Answer Comments Full Code: Discussed Care Teams Road Cutter Relationship Specialty Start Date End Date None Reported, Pcp PCP - General Family Medicine 10/13/22
--- OUTSIDE RECORDS SUMMARY | 2023-12-29 11:28 | XMS_ITS | Referral Summary ---
Author Organization [facility] Address [address] [place] [address] Care Team Providers Care Podiatrist Orthopedic Name Role Phone None Reported, Pcp Primary Care Provider Unavail able Source Comments Patient records contain information from all sites at [facility]. For routine questions regarding patient records, call [phone] during business hours, M-F 8:00 AM - 5:00 PM Central Time. 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 Patient declined 05/28/2022 Do you belong to any clubs o r organizations such as latter-day groups, unions, fraternal or athletic groups, or [...] care, and heating? 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 at [facility] Hardware e.g. pins/screws/ rods Neck [employer] [id number] / / Clp Hrzn Ti 6 Satya Horvath Lorne - [id number] Implanted:Qty: 1 on 10/13/2022 by Tam Stoddard M.D. at [facility] Hardware e.g. pins/screws/ rods [employer] [id number] / / Clp Hrzn Ti 6 Clp [facility] - [id number] Implanted:Qty: 1 on 10/13/2022 by Tam Stoddard M.D. at [facility] Hardware e.g. pins/screws/ rods Neck [employer] / / Clp Hrzn Ti 6 Clp Sm Red - [id number] Implanted:Qty: 1 on 10/13/2022 by Tam Stoddard M.D. at [facility] Hardware e.g. pins/screws/ rods Neck [employer] / / Stent Uret Single J 7 X 90cm - [id number] Implanted:Qty: 1 on 05/29/2011 Ureteral Stent Other/Legacy - See Implant Description Description:Device Manufactu rer - Circon Surgi. Device Status Text - [id number]. Explanted Type Area Marker Shipments Device Identifier Shelf Expiration Date Model / Serial / Lot Filter [place] Vena Cava- Jugular - [id number] Implanted:Qty: 1 on 06/23/2011 Explanted:2011 (Quantity not on file) Vascular or IVC Filter Right: Chest C.R.Bard Description:Device Manufactu rer - Bard Access. Device Status Text - [id number]. Procedures Procedure Name Priority Date/Time Associated Diagnosis [...] Interval left thyroid lobectomy. Christofer SHETTY, P.A.-C. IMG CT [place] OCEDURES * (ABNORMAL) Basic Metabolic Panel (06/24/2023 [...] CDT Christofer SHETTY, P.A.-C. LAB BLOOD ADD-ON [facility] [address] [place] [address], [facility] [address] [place] [address] from Last 3 Months or Most Recently Relevant to Health Maintenance Advance Directives For more information, please contact: [phone] Documents on File Type Date Recorded Patient Chief Investigator Expl anation Advance Directives 05/29/2011 12:00 AM Leg acy document. See document viewer. * Full Code (Latest Code Status on File) Date Activated Date Inactivated Comments 10/13/2022 11:41 AM 10/14/2022 2:29 PM Question Answer Comments Full Code: Discussed Care Teams Podiatrist Orthopedic Relationship Specialty Start Date End Date None Reported, Pcp PCP - General Family Medicine 10/13/22
--- OUTSIDE RECORDS SUMMARY | 2023-12-29 11:28 | XMS_ITS ---
Author Organization [facility] Address [address] [place] [address] Care Team Providers Care Brick Loader Name Role Phone Unavailable Unavailable Unavailable Surgery Details Not on file Complications Check Surgery Details section. Procedure Estimated Blood Loss Check Surgery Details section. Procedure Findings Check Surgery Details section. Procedure Specimens Taken Check Surgery Details section.
== END 2023-12-29 11:26 | disposition home or self-care (01) ==
LOC: NFLDREF 11:26
PROVIDERS: PCP Internal Medicine; Visit Provider Internal Medicine
DX: Z85.850 Personal history of malignant neoplasm of thyroid (principal)
CPT/HCPCS: 84439; 84443

== ENCOUNTER 2024-08-22 06:09 | Day surgery (SDC) | payer MEDICARE, SELFPAY ==
[2024-08-22 06:20] VITALS: BMI 38.2
[2024-08-22] MEDS: SODIUM CHLORIDE 0.9 % (FLUSH) 10 ML SYRINGE IVF (06:49)
[2024-08-22] MEDS: 0.9 % SODIUM CHLORIDE 500 ML 500 ML 100 ML IV (06:50)
[2024-08-22 06:53] VITALS: BP 115/58; PULSE 76; RESP 16; TEMP 36.2; O2SAT 96
--- NOTE | 2024-08-22 07:17 | P.GSCN_ITS ---
History of Present Illness Consult details Date Seen: 08/22/24 Consult date: 08/22/24 Narrative: 83-year-old male was referred to surgery by Medical Oncology for a Port-A-Cath placement. Patient was treated for bladder cancer in 2011. Patient underwent cystoprostatectomy with adjuvant chemotherapy. Patient had right Port-A-Cath in place at that time. Most recently patient was noted to have left retroperitoneal lymphadenopathy. He underwent a lymph node biopsy that returned positive for urothelial carcinoma. Patient was seen by medical oncology and chemotherapy was recommended. Patient's history is also significant for left hemithyroidectomy. Was not clear if this was from malignant or benign causes. Review of Systems Narrative: General: no fevers HENT: no problems swallowing CV: no shortness of breath Resp: no cough GI: No nausea, vomiting, abdominal pain : no dysuria, no increased urinary frequency, no hematuria Skin: no new rashes Musculoskeletal: no back pain Neuro: no muscle weakness Psyche: no depression, no anxiety PFSH PFSH Medical History Hearing loss ?H91.90 - Unspecified hearing loss, unspecified ear (ICD-10) History of pulmonary embolism ?Z86.711 - Personal history of pulmonary embolism (ICD-10) Tubular adenoma ?D36.9 - Benign neoplasm, unspecified site (ICD-10) Obesity ?E66.9 - Obesity, unspecified (ICD-10) Surgical History History of insertion of central venous access port ?Z95.828 - Presence of other vascular implants and grafts (ICD-10) History of thyroidectomy ?Z98.890 - Other specified postprocedural states (ICD-10) ?Z90.89 - Acquired absence of other organs (ICD-10) History of urostomy ?Z98.890 - Other specified postprocedural states (ICD-10) Social History Narrative: Hx tobacco use What is your current living situation?: I presently have a place to live Problems where you live: no known problems In the past 12 months, utilities in danger of being shut off: no In past 12 months, lack of transportation kept you from medical appts, meetings, work, or getting things needed for daily living: no In the past 12 mos, have been you worried that your food would run out before you had money to buy more?: never true In the past 12 mos, the food you bought just didn't last and you didn't have money to buy more?: never true Smoking Status: Former smoker Do you use any of these nicotine containing products: None Second hand tobacco smoke exposure: No How often do you have a drink containing alcohol: 2-3 times a week Alcohol type: beer and wine How many standard drinks containing alcohol do you have on a typical day: 1 or 2 How often do you have six or more drinks on one occasion: Never AUDIT-C Alcohol total score: 3 Non-prescribed substance use: denies use Caffeine: Yes (1 cup of coffee a day) How often does anyone, including family, friends and others, physically hurt you : never How often does anyone, including family, friends and others, insult or talk down to you: never How often does anyone, including family, friends and others, threaten you with harm: never How often does anyone, including family, friends and others, scream or curse at you: never service: Yes Meds Home Medications and Allergies Home Medications ?Medication ?Instructions ?Recorded ?Confirmed ?Type polyethylene glycol 3350 17 4 g PO .PRN Constipation 04/14/24 08/22/24 History gram/dose oral powder (Miralax) ascorbic acid (vitamin C) 500 mg mg PO .3 times a week 08/15/24 08/17/24 History capsule diphenhydramine HCl 25 mg capsule 25 mg PO BID PRN 08/15/24 08/17/24 History (Allergy (diphenhydramine)) ferrous sulfate 325 mg (65 mg 325 mg PO .three times a week 08/15/24 08/22/24 History iron) tablet (FeroSul) hydroxyzine HCl 25 mg tablet 25 mg PO TID PRN 08/15/24 08/22/24 History krill oil 500 mg capsule mg PO QDAY 08/15/24 08/17/24 History ondansetron 8 mg disintegrating 8 mg PO Q12H 08/15/24 08/22/24 History tablet prochlorperazine maleate 10 mg 10 mg PO Q8H PRN 08/15/24 08/17/24 History tablet sennosides 8.6 mg capsule (senna) 8.6 mg PO BID 08/15/24 08/22/24 History triamcinolone acetonide 0.1 % 1 applic topical TID 08/15/24 08/22/24 History topical cream Allergies Allergy/AdvReac Type Severity Reaction Status Date / Time No Known Allergies Allergy Verified 08/22/24 06:17 Exam Narrative: Exam Narrative: General appearance: Alert, cooperative, and in no distress Head neck: There is a well-healed partial thyroidectomy incision in the neck. Chest: In the right superior lateral chest there is a well-healed port incision. There is also a small incision just inferior to the right clavicle. Pulmonary: Chest symmetric, lungs clear bilaterally Cardiovascular Heart: Regular rate and rhythm, S1, S2, no murmurs/rubs/gallops Skin: Normal skin color, texture, and turgor. No rashes or lesions. Psychiatric: Alert, cooperative, normal affect. Const: Vital Signs, click to edit/add: Vital Signs - 24 hr 08/22/24 06:53 Temperature 97.2 F L Pulse Rate 76 Respiratory Rate 16 Blood Pressure 115/58 L Pulse Oximetry 96 Oxygen Delivery Me thod Room Air Results Labs Labs: All other labs normal. Progress Note:A&P Assessment and plan (1) Bladder cancer: Status: Acute Plan 83-year-old male with recurrent urothelial carcinoma presents for Port-A-Cath placement. I discussed with the patient and his clinical findings. Patient does not have any contraindications for port placement. Patient has a history of right Port-A-Cath. The procedure was discussed in detail. The risks associated procedure including infection, bleeding, pneumothorax, and inability to place the port were all discussed with the patient, and he agreed to proceed.
--- NOTE | 2024-08-22 07:17 | W.PM.H&PU ---
History & Physical Update History & Physical Update H&P Reviewed and patient assessed: No changes noted
--- NOTE | 2024-08-22 07:23 | P.GSOP_ITS ---
Operative Note Date of procedure: 08/22/24 Pre-op diagnosis: 1. Recurrent urothelial carcinoma. 2. History of right Port-A-Cath. 3. History of left thyroidectomy. Post-op diagnosis: Same Type of Procedure: 1. Right internal jugular Port-A-Cath placement under ultrasound and fluoroscopy guidance. Indications: 83-year-old male presents with recurrent urothelial carcinoma. Patient has a history of right port placement in the past and subsequent port removal after completing adjuvant chemotherapy in 2011. Patient presents now with left retroperitoneal lymphadenopathy biopsy-proven for urothelial carcinoma. Port a cath placement was recommended. The procedure was discussed in detail. The risks associated procedure including infection, bleeding, pneumothorax, and the need for additional procedures were all discussed with the patient, and he agreed to proceed. Procedure Description: After discussing the risks and benefits of the procedure, the patient signed informed consent.? The operative site was marked and the patient was brought to the operating room and placed on the operating table in supine position.? Care was taken to pad the patient's pressure points.?? The patient was then sedated by anesthesia.?? The operative site was then prepped and draped in the usual st erile fashion.? A time-out was then performed. Ultrasound was brought on to the field and the right internal jugular vein was assessed. This was found to be large and easily compressible. The base of the neck directly overlying the internal jugular vein was then anesthetized with 1% lidocaine and 0.25% Marcaine mixture, and an introducer needle was inserted into the internal jugular vein using ultrasound guidance. Entry into the vein was confirmed by the presence of dark, nonpulsatile blood. A guide wire was advanced through the needle. The introducer needle was removed, leaving the wire in place. Fluoroscopy was brought onto the field and where was visualized. The wire was coiling on the right side and was not advance into the right heart. With fluoroscopy multiple attempts were made at adjusting the wire to directed into the IVC or right heart but were not successful. The wire was most likely in the azygous vein. I then proceeded with attempted to place the port on the left side. Ultrasound was again brought onto the field and the left internal jugular vein was visualized. Skin over the left internal jugular vein was anesthetized and a small skin incision was made. Entry into the vein was confirmed by the presence of dark nonpulsatile blood. A guidewire was then advanced through the needle and the introducer sheath was removed. Fluoroscopy was then brought onto the field but the wire was noted to go to the left subclavian vein. With fluoroscopy, the wire was adjusted but after crossing the midline it kept going into the right internal jugular vein. An angled tipped Glidewire was then used to attempt an advance it into the IVC. With multiple attempts at adjusting this Glidewire, it kept coiling on the right side or going into the right internal jugular vein. The wire was then removed, and another attempt was made on the right side. The introducer needle was placed into the right internal jugular vein and the vein was accessed. Dark nonpulsatile blood was seen to come out from the needle. A Glidewire was then advanced through the needle and the needle was removed. This Glidewire was crossing the midline and going to the left internal jugular vein. The patient's body was repositioned multiple times to aid in advancing the Glidewire and finally the Glidewire went straight down into the IVC. Lidocaine was then used to infiltrate the port skin site, along with the proposed tunneling tract. A 3 cm incision was made at the site of the port pocket and subcutaneous tissue was dissected down using electrocautery. Subcutaneous pocket was created with blunt dissection and electrocautery. The catheter was advanced through the subcutaneous tissue using a tunneling trocar, exiting the incision at the base of the neck. The trocar was then disconnected. Fluoroscopy was again brought on to the field and the internal jugular vein and adjacent subcutaneous tissue was dilated with a pre-split introducer sheath in place. The wire was removed and the catheter was inserted into the introducer sheath. As the catheter was advanced, the sheath was split and divided, removing the sheath as the catheter was advanced into place. Fluoroscopy was again brought on to the field and the catheter position was examined. The entire course of the catheter was then viewed, and catheter was pulled back under direct visualization to ensure that the tip is in the SVC. The port was connected to the catheter tip and placed into previously created pocket. Prolene was used to place anchoring port sutures and the port was then secured in the pocket. The flow through the catheter was checked with a syringe, and found to be excellent. The incision at the base of the right and left neck was then closed with a single interrupted 4-0 monocryl stitches. Subdermal layer was re- approximated with interrupted 3-0 vicryl stitches and skin over the port was closed with 4-0 monocryl using subcuticular stitch. Ridley needle was inserted through the skin into the port and the port was flushed with heparinized saline. The needle was then removed. Steri strips and dressings were placed over the incisions and secured in place with Tegaderm. The patient was then roused and brought to same day surgery in satisfactory condition. Sponge and needle counts were correct at the end of the procedure. Post procedure CXR was ordered to be done in same day surgery. Findings: The wire was difficult to advance into the IVC, it was thought to be going to the azygous vein on the right side and on the left side was going into the right IJ. The Glidewire was used and port placement was successful. Anesthesia: MAC and local Surgeon: Lyndon Peterson MD Estimated blood loss (mL): 15 Condition: stable Disposition: same day
--- NOTE | 2024-08-22 07:30 | CRLHL7_ITS ---
For Patients: As a result of the Century Cures Act, medical imaging exams and procedure reports are released immediately into your electronic medical record. You may view this report before your referring provider. If you have questions, please contact your health care provider. Indication: Portacath placement Technique: One fluoroscopic image of the chest. Fluoroscopic time 6 minutes 44.4 seconds. IMPRESSION: Fluoroscopic guidance for Port-A-Cath placement. Dictated by Guido Willis MD @ 08/22/2024 9:54:12 AM (Electronically Signed)
[2024-08-22] MEDS: CEFAZOLIN 1 GM inj IVP (07:45)
[2024-08-22] MEDS: 0.9% SODIUM CHL 50 ML VIAL INJECTION (09:00)
[2024-08-22] MEDS: BUPIVACAINE 0.25% 30 ML INJECTION (09:00)
[2024-08-22] MEDS: LIDOCAINE 1%-EPI 1:100,000 20 ML INFILTRATI (09:00)
[2024-08-22] MEDS: HEPARIN 500 UNIT/5 ML SYRINGE IVF (09:10)
[2024-08-22 09:22] VITALS: BP 95/74; PULSE 72; RESP 16; TEMP 36.2; O2SAT 93
--- NOTE | 2024-08-22 09:22 | CRLHL7_ITS ---
For Patients: As a result of the Cures Act, medical imaging exams and procedure reports are released immediately into your electronic medical record. You may view this report before your referring provider. If you have questions, please contact your health care provider. INDICATION: POST OP PORT PLACEMENT TECHNIQUE: Chest 1 view COMPARISON: None FINDINGS: Right IJ approach Port-A-Cath is present with the tip at the cavoatrial junction. No pneumothorax. No pleural effusion. Trachea midline. Intact aortic arch. IMPRESSION: Right IJ Port-A-Cath is present with the tip at the cavoatrial junction. No pneumothorax. Dictated by Guido Willis MD @ 08/22/2024 9:49:13 AM (Electronically Signed)
--- NOTE | 2024-08-22 09:28 | P.ANES_ITS ---
Anesthesia Charges Start Date/Time Anesthesia Start Date: 08/22/24 Anesthesia Start Time: 07:34 Stop Date/Time Anesthesia Stop Date: 08/22/24 Anesthesia Stop Time: 09:25 Coding CPT Codes CPT Codes: ANESTH VASCULAR ACCESS - 81071 ([id number]) P3 - PATIENT W/SEVERE SYS DISEASE, QK - MAGNETO REPAIRER 2-4 CNCRNT ANES PROC, QX - OPTOELECTRONIC TECHNICIAN SVC W/ MD MED DIRECTION
--- NOTE | 2024-08-22 09:28 | W.ANESCHARGE ---
Anesthesia Charges Start Date/Time Anesthesia Start Date: 08/22/24 Anesthesia Start Time: 07:34 Stop Date/Time Anesthesia Stop Date: 08/22/24 Anesthesia Stop Time: 09:25 Coding CPT Codes CPT Codes: ANESTH VASCULAR ACCESS - 27101 ([id number]) P3 - PATIENT W/SEVERE SYS DISEASE, QK - KNITTED CLOTH EXAMINER 2-4 CNCRNT ANES PROC, QX - CLAY SHOP SUPERVISOR SVC W/ MD MED DIRECTION
[2024-08-22 09:37] VITALS: BP 105/60; PULSE 69; RESP 16; O2SAT 94
[2024-08-22] MEDS: 0.9 % SODIUM CHLORIDE 500 ML 500 ML IV (09:41)
[2024-08-22] MEDS: ACETAMINOPHEN 325 MG TABLET 650 MG PO (09:43)
[2024-08-22 09:52] VITALS: BP 105/58; PULSE 62; RESP 16; O2SAT 92
--- NOTE | 2024-08-22 09:58 | W.ANESCHARGE ---
Anesthesia Charges Start Date/Time Anesthesia Start Date: 08/22/24 Anesthesia Start Time: 07:34 Stop Date/Time Anesthesia Stop Date: 08/22/24 Anesthesia Stop Time: 09:25 Summary Extremes of Age - Over 70 or under 1: MDA Coding CPT Codes CPT Codes: ANESTH VASCULAR ACCESS - 56432 ([id number]) QK - CHANNEL MARKETING PROGRAM MANAGER 2-4 CNCRNT ANES PROC, QX - ENGINEERING TEAM SUPERVISOR SVC W/ MD MED DIRECTION, P3 - PATIENT W/SEVERE SYS DISEASE Additional Codes: Summary - Extremes of Age - Over 70 or under 1: MDA ([id number])
[2024-08-22 10:07] VITALS: BP 112/53; PULSE 62; RESP 14; O2SAT 96
[2024-08-22 10:37] VITALS: BP 106/53; PULSE 62; RESP 16; TEMP 36.6; O2SAT 95
== END 2024-08-22 11:00 | disposition home or self-care (01) ==
PROVIDERS: PCP Internal Medicine; Visit Provider Surgery
PROC: (CPT 36561; principal; 2024-08-22 07:30)
DX: Z45.2 Encounter for adjustment and management of vascular access device (principal); C67.9 Malignant neoplasm of bladder, unspecified; E66.9 Obesity, unspecified; Z68.38 Body mass index [BMI] 38.0-38.9, adult; Z85.850 Personal history of malignant neoplasm of thyroid; Z85.51 Personal history of malignant neoplasm of bladder; I12.9 Hypertensive chronic kidney disease with stage 1 through stage 4 chronic kidney disease, or unspecified chronic kidney disease; N18.9 Chronic kidney disease, unspecified; Z86.711 Personal history of pulmonary embolism
CPT/HCPCS: 36561; 00532; 71045; 76000; 76998; 99100; A9270; C1769; C1788; J0665; J0690; J1642; J2371; J2704; J3490; J7030

== ENCOUNTER 2024-09-06 10:00 | Outpatient (RCR) | payer MEDICARE, SELFPAY ==
[2024-08-26 10:00] LABS: Basophils Absolute Auto 0.05 K/uL (0.00-0.30); Basophils Percent Auto 0.6 % (0.0-3.0); Eosinophils Percent Auto 7.5 % (0.0-7.0); Hematocrit* 38.5 % (37.0-53.0); Hemoglobin* 12.5 gm/dL (13.5-17.5); Immature Granulocytes Abs Auto 0.06 K/uL (0.00-0.30); Immature Granulocytes Pct Auto 0.8 %; Lymphocytes Percent Auto 17.7 % (20-44); Mean Corpuscular HGB Conc 33 gm/dL (32-36); Mean Corpuscular Hemoglobin 31 pg (26-34); Mean Corpuscular Volume 94 fL (80-100); Monocytes Percent Auto 12.4 % (0.0-11.0); Neutrophils Absolute Auto 4.81 K/uL (1.7-7.0); Platelet Count* 218 K/uL (140-440); RDW Coefficient of Variation % 15.4 % (11.5-15.5); Red Blood Count* 4.09 m/uL (4.30-5.90); White Blood Count* 7.89 K/uL (4.50-11.00)
[2024-08-26 10:05] LABS: Slide Review Reflex No
[2024-08-26 10:50] LABS: Anion Gap 7 mEq/L (7-15); Blood Urea Nitrogen* 23 mg/dL (7-30); Calcium* 9.1 mg/dL (8.4-10.6); Carbon Dioxide* 23 mmol/L (20-32); Chloride* 112 mmol/L (96-114); Creatinine* 1.7 mg/dL (0.5-1.5); Est. Creatinine Clearance* 36.77; Estimated Glomerular Filt Rate 40 ml/min; Glucose* 102 mg/dL (60-115); Sodium* 142 mmol/L (135-149); Total Protein* 6.6 g/dL (6.0-8.3)
[2024-08-26 10:51] LABS: Alanine Aminotransferase* 23 U/L (4-50); Albumin* 3.5 g/dL (3.3-5.0); Alkaline Phosphatase* 113 U/L (40-150); Aspartate Amino Transferase* 46 U/L (12-35); Bilirubin Total* 0.6 mg/dL (0.1-1.5)
[2024-08-29 09:57] VITALS: BP 121/71; PULSE 77; RESP 18; TEMP 36.2; O2SAT 93
[2024-08-29] MEDS: SODIUM CHLORIDE 0.9 % (FLUSH) 10 ML SYRINGE IVF ×2 (11:20→12:42)
[2024-08-29] MEDS: ONDANSETRON 2 MG/ML inj 8 MG IVP (12:06)
[2024-08-29] MEDS: PEMBROLIZUMAB 200 MG, TUBING PRIMARY 1 EACH, In-line 0.2 micron filter set 1 EACH in 0.... 216 MG IVPB (12:08)
[2024-08-29] MEDS: HEPARIN 500 UNIT/5 ML SYRINGE IVF (12:42)
--- NOTE | 2024-08-29 16:13 | ONC.NURNOTE ---
PSDS- 2 interested in SS consult for questions related to ACP and his health care directive interested in a referral to CRP for activity intolerance and deconditioning
--- NOTE | 2024-08-30 14:42 | ONC.NURNOTE ---
Called patient to follow up after his 1st treatment here yesterday. Patient reports he is feeling good today and so far is not having any of the same side effects he had following his first treatment down at [place]. Advised him to call back if anything came up prior to his appt with us next week. He verbalized understanding and agreeable to the plan.
[2024-09-06 09:52] VITALS: BP 126/68; PULSE 71; RESP 17; TEMP 36.4; O2SAT 96
[2024-09-06] MEDS: SODIUM CHLORIDE 0.9 % (FLUSH) 10 ML SYRINGE IVF (10:25)
[2024-09-06 10:26] LABS: Basophils Absolute Auto 0.06 K/uL (0.00-0.30); Basophils Percent Auto 0.8 % (0.0-3.0); Eosinophils Percent Auto 8.8 % (0.0-7.0); Hemoglobin* 12.5 gm/dL (13.5-17.5); Immature Granulocytes Abs Auto 0.05 K/uL (0.00-0.30); Immature Granulocytes Pct Auto 0.7 %; Lymphocytes Percent Auto 12.1 % (20-44); Mean Corpuscular HGB Conc 33 gm/dL (32-36); Mean Corpuscular Hemoglobin 31 pg (26-34); Mean Corpuscular Volume 93 fL (80-100); Monocytes Percent Auto 11.5 % (0.0-11.0); Neutrophils Absolute Auto 4.95 K/uL (1.7-7.0); Neutrophils Percent Auto 66.1 % (42.0-72.0); Platelet Count* 193 K/uL (140-440); RDW Coefficient of Variation % 15.2 % (11.5-15.5); Red Blood Count* 4.07 m/uL (4.30-5.90); White Blood Count* 7.49 K/uL (4.50-11.00)
[2024-09-06 10:33] LABS: Albumin* 3.5 g/dL (3.3-5.0); Chloride* 110 mmol/L (96-114); Sodium* 140 mmol/L (135-149)
[2024-09-06 10:35] LABS: Blood Urea Nitrogen* 35 mg/dL (7-30); Creatinine* 2.1 mg/dL (0.5-1.5); Est. Creatinine Clearance* 29.77; Estimated Glomerular Filt Rate 31 ml/min
[2024-09-06 10:36] LABS: Alanine Aminotransferase* 101 U/L (4-50); Alkaline Phosphatase* 106 U/L (40-150); Anion Gap 8 mEq/L (7-15); Aspartate Amino Transferase* 247 U/L (12-35); Calcium* 9.4 mg/dL (8.4-10.6); Carbon Dioxide* 22 mmol/L (20-32); Glucose* 105 mg/dL (60-115); Total Protein* 6.5 g/dL (6.0-8.3)
[2024-09-06 10:45] LABS: Slide Review Reflex No
[2024-09-06 11:21] LABS: Free T4 Free Thyroxine* 1.08 ng/dL (0.70-1.85)
[2024-09-06] MEDS: 0.9 % SODIUM CHLORIDE 1000 ml 1,000 ML 750 ML IV (11:25)
[2024-09-06 13:20] LABS: C Reactive Protein* 3.3 mg/dL (0.5-1.0)
[2024-09-06 13:48] LABS: Appearance Urine Turbid (Clear); Bilirubin Urine 1+ (Negative); Color Urine Brown (Yellow); Glucose Urine Negative (Negative)
[2024-09-06 13:49] LABS: Blood Urine 3+ (Negative); Ketones Urine Negative (Negative); Leukocyte Esterase Urine 3+ (Negative); Nitrite Urine Negative (Negative); Protein Urine 4+ (Negative); Urobilinogen Urine 0.2 (0.2-1.0)
[2024-09-06 13:51] LABS: Creatine Kinase* 3687 U/L (54-186)
[2024-09-06 13:52] LABS: Troponin I* 0.29 ng/mL (0.01-0.04)
[2024-09-06 13:56] LABS: WBC Clumps Urine Moderate; WBC Urine >100 (0-5)
[2024-09-06 13:58] LABS: Bacteria Urine Many
[2024-09-06 14:51] LABS: Erythrocyte SedimentationRate* 53 mm/hr (2-15)
[2024-09-07 12:25] LABS: Free T3 2.4 pg/mL (2.5-4.3)
--- NOTE | 2024-09-20 14:59 | PC.NURSE ---
[facility] called today 09/20/24 letting us know that Michael has at the [facility] in [place].
== END 2024-09-19 23:59 | disposition home or self-care (01) ==
LOC: CCIC 10:00
PROVIDERS: Internal Medicine Hematology & Oncology; PCP Internal Medicine; Referring Provider Internal Medicine; Visit Provider Clinical Nurse Specialist
DX: C67.9 Malignant neoplasm of bladder, unspecified (principal); E03.2 Hypothyroidism due to medicaments and other exogenous substances; Z85.850 Personal history of malignant neoplasm of thyroid; R60.9 Edema, unspecified
CPT/HCPCS: 36415; 36591; 80053; 81001; 81003; 82085; 82550; 84439; 84443; 84481; 84484; 85025; 85651; 86140; 87086; 96375; 96413; 96417; 99202; 99205; 99211; 99215; G0463; J9177; J1642; J2405; J7030; J9271

== ENCOUNTER 2024-09-06 14:37 | Inpatient (IN) | payer MEDICARE, SELFPAY ==
--- OUTSIDE RECORDS SUMMARY | 2024-08-04 16:15 | XMS_ITS | Encounter Summary ---
Author Organization [facility] Address [address] [place] [address] Care Team Providers Care Earth Science Laboratory Technician Name Role Phone Unavailable Primary Care Provider Unavailabl e Reason for Visit * Reason Onset Date Comments Pre-visit Intake 08/04/2024 * Appointment Request (Routine) - Authorized Specialty Diagnoses / Procedures Referred By Amaya cook Referred To Contact Oncology Referral ID Status Reason Start Date Expiration Date V isits Requested Visits Authorized [id number] Authorized 08/04/2024 11/04/2025 1 1 Encounter Details Date Type Department Care Team (Latest Contact Info) Description 08/04/2024 4:15 PM CDT Clinical Communication Virtual Review in [address] [address] Pre-visit Intake Social History Tobacco Use Types Packs/Day Years Used Date Smoking Tobacco: Former Cigarettes 1 20 0 04/22/1959 - 04/22/1989 Passive Smoke Exposure: Past Smokeless Tobacco: Never Alcohol Use Standard Drinks/Week Comments Yes 6 (1 standard drink = 0.6 oz pur e alcohol) Light social drinker [facility] Utilities Answer Date Recorded In the past 12 months has e electric, gas, oil, or water company threatened to shut off services in your home? No 07/05/2024 Humiliation, Afraid, Rape, and Kick questionnair e [...] How often do you attend chur or worship services? Patient declined 05/28/2022 Do you belong to any clubs o r organizations such as pentecostal groups, unions, fraternal or athletic groups, or [...] care, and heating? Not very hard 09/05/2022 [facility] of Occupat ional Health - Occupational Stress [...] exercise (like a brisk walk)? 0 days 07/05/2024 On average, how many minutes do you engage in exercise at this level? 0 min 07/05/2024 Hunger Vital Sign Answer Date Recorded Within the past 12 months, y ou worried that your food would run out before you got the money to buy more. Never true 07/06/19 25 Within the past 12 months, t he food you bought just didn't last and you didn't have money to get more. Never true 07/05/2024 PRAPARE - Transportation Answer Date Re corded In the past 12 months, has l ack of transportation kept you from medical appointments or from getting medications? No 06/12 In the past 12 months, has l ack of transportation kept you from meetings, work, or from getting things needed for daily living? No 07/05/2024 Nutrition Answer Date Recorded On average, how many serving s of fruits and vegetables do you eat per day (serving size is equal to 1 cup or approximately the size of a tennis ball)? 3-5 07/05/2024 Dental Answer Date Recorded Dental: Regular Dentist Yes 05/30/19 Employment Answer Date Recorded Employment status Retired 07/05/2024 Housing Stability Answer Date Recorded What is your living situation today? I have a [facility] place to live 07/05/2024 Education Answer Date Recorded What is the highest level of school you have completed or the highest degree you have received? Bachelor's degree (e.g., BA, AB, BS) 05/16/2019 Sex and Gender Information Value Date Recorded Sex Assigned at Male 01/13/2020 10:41 AM CDT Legal Sex Male 3:35 PM FLAVORINGS COMPOUNDER Gender Identity Male 04/11/2018 8:29 AM FLAVORINGS COMPOUNDER Sexual Orientation Straight 04/11/2018 8: 29 AM FLAVORINGS COMPOUNDER documented as of this encounter Plan of Treatment Upcoming Encounters Date Type Department Care Team (Latest Contact Info) Description 10/10/2024 2:30 PM CDT Clinical Communication Virtual Review in [place], [place] [address] [place] [address] 10/11/2024 8:10 AM CDT Appointment Department of Laboratory Medicine and Pathology, [facility], in [place], [place] [address] [place] [phone] Soha Huggins P.A.-C. [address] [place] [phone] 10/11/2024 9:00 AM CDT Appointment Department of Radiology, [facility], in [place], [place] [address] [place] [address] Soha Huggins P.A.-C. [address] [place] [phone] 10/11/2024 3:40 PM CDT Office Visit Department of Oncology in [place], [place] [address] [place] [phone] Casimiro Chavez M.D., Ph.D. [address] [place] [phone] documented as of this encounter Visit Diagnoses Not on filedocumented in this encounter
--- OUTSIDE RECORDS SUMMARY | 2024-08-05 13:20 | XMS_ITS | Encounter Summary ---
Author Organization [facility] Address [address] [place] [address] Care Team Providers Care Administrative Support Associate Name Role Phone Unavailable Primary Care Provider Unavailabl e Reason for Referral * Medication Prior Authorization - Authorized Specialty Diagnoses / Procedures Referred By Amaya cook Referred To Contact Diagnoses Malignant Neoplasm Of Bladder (HCC) Secondary Malignant Neoplasm Lymph Node (HCC) Soha Huggins P.A.-C. [address] [place] [phone] Phone: tel: fax: Referral ID Status Reason Start Date Expiration Date V isits Requested Visits Authorized [id number] Authorized 05/11/2024 08/09/2025 1 1 Reason for Visit * Episode Based Medications (Routine) - Authorized Specialty Diagnoses / Procedures Referred By Amaya cook Referred To Contact Diagnoses Malignant Neoplasm Of Bladder (HCC) Procedures SC ONDANSETRON HCL INJECTION SC PEMBROLIZUMAB INJ SC INJ ENFORT VEDO-EJFV 0.25MG Casimiro Chavez M.D., Ph.D. [address] [place] [phone] Phone: tel: fax: Casimiro Chavez M.D., Ph.D. 200 [place] [address] Phone: tel: fax: Referral ID Status Reason Start Date Expiration Date V isits Requested Visits Authorized [id number] Authorized 07/18/2024 10/18/2025 48 48 Encounter Details Date Type Department Care Team (Late st Contact Info) Description 08/05/2024 1:20 PM CDT Office Visit Department of Oncology in [place], [place] [address] [place] [phone] Soha Huggins P.A.-C. [address] [place] [phone] Secondary Malignant Neoplasm Lymph Node (HCC) (Primary Dx); Malignant Neoplasm Of Bladder (HCC) Social History Tobacco Use Types Packs/Day Years Used Date Smoking Tobacco: Former Cigarettes 1 20 0 04/22/1959 - 04/22/1989 Passive Smoke Exposure: Past Smokeless Tobacco: Never Alcohol Use Standard Drinks/Week Comments Yes 6 (1 standard drink = 0.6 oz pur e alcohol) Light social drinker [facility] Utilities Answer Date Recorded In the past 12 months has [employer], gas, oil, or water [employer] threatened to shut off services in your [...] How often do you attend chur or evangelical services? Patient declined 05/28/2022 Do you belong to any clubs o r organizations such as synagogue groups, unions, fraternal or athletic groups, or [...] care, and heating? Not very hard 09/05/2022 [facility] - Occupational [...] your living situation today? I have a [facility] place to live 07/05/2024 Education Answer Date Recorded What is the highest level of school you have completed or the highest degree you have received? 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 OCAL ONCOLOGIST: Establishing at [facility] CHIEF COMPLAINT Primary responsible: Casimiro Chavez [...] He is anticipated to establish care in [place] for subsequent cycles. SYSTEMS REVIEW All 12 [...] contact information. Additionally, he is enrolled in [employer] study Plan: Proceed with cycle 1 day [...] PM CDT Clinical Communication Virtual Review in [place], [place] 200 [place] [address] 10/11/2024 8:10 AM CDT Appointment Department of Laboratory Medicine and Pathology, [facility], in [place], [place] [address] [place] [phone] Soha Huggins P.A.-C. [address] [place] [phone] 10/11/2024 9:00 AM CDT Appointment Department of Radiology, [facility], in [address] [phone] Soha Huggins P.A.-C. [address] [place] [phone] 10/11/2024 3:40 PM CDT Office Visit Department of Oncology in [place], [place] [address] [place] [phone] Casimiro Chavez M.D., Ph.D. [address] [place] [phone] documented as of this encounter Visit Diagnoses Diagnosis Secondary Malignant Neoplasm Lymph Node (HCC)- Primary Malignant Neoplasm Of Bladder (HCC) documented in this encounter
--- OUTSIDE RECORDS SUMMARY | 2024-08-05 14:40 | XMS_ITS | Encounter Summary ---
Author Organization [facility] Address [address] [place] [address] Care Team Providers Care Ham Stripper Name Role Phone Unavailable Primary Care Provider Unavailabl e Reason for Referral * Outpatient (Routine) - Authorized Specialty Diagnoses / Procedures Referred By Amaya cook Referred To Contact Oncology Soha Huggins P.A.-C. [address] [place] [phone] Phone: tel: fax: [facility] Referral ID Status Reason Start Date Expiration Date V isits Requested Visits Authorized [id number] Authorized 08/05/2024 02/04/2026 1 1 Scheduling Instructions [place] or Bhavna * MRI/CAT/PET Scan (Routine) - Authorized Specialty Diagnoses / Procedures Referred By Amaya cook Referred To Contact Radiology Diagnoses Malignant Neoplasm Of Bladder (HCC) Procedures CT Urogram with IV Contrast Soha Huggins P.A.-C. 200 [place] [address] Phone: tel: fax: [facility] Referral ID Status Reason Start Date Expiration Date V isits Requested Visits Authorized [id number] Authorized 08/05/2024 11/05/2025 1 1 * MRI/CAT/PET Scan (Routine) - Authorized Specialty Diagnoses / Procedures Referred By Amaya cook Referred To Contact Radiology Diagnoses Malignant Neoplasm Of Bladder (HCC) Procedures CT Chest with IV Contrast Soha Huggins P.A.-C. [address] [place] [phone] Phone: tel: fax: [facility] Referral ID Status Reason Start Date Expiration Date V isits Requested Visits Authorized [id number] Authorized 08/05/2024 11/05/2025 1 1 Reason for Visit * Episode Based Medications (Routine) - Authorized Specialty Diagnoses / Procedures Referred By Amaya cook Referred To Contact Diagnoses Malignant Neoplasm Of Bladder (HCC) Procedures MD ONDANSETRON HCL INJECTION MD PEMBROLIZUMAB INJ MD INJ ENFORT VEDO-EJFV 0.25MG Casimiro Chavez M.D., Ph.D. [address] [place] [phone] Phone: tel: fax: Casimiro Chavez M.D., Ph.D. [address] [place] [phone] Phone: tel: fax: Referral ID Status Reason Start Date Expiration Date V isits Requested Visits Authorized [id number] Authorized 07/18/2024 10/18/2025 48 48 Encounter Details Date Type Department Care Team (Late st Contact Info) Description 08/05/2024 2:40 PM CDT Education Department of Oncology in [place], [place] [address] [place] [address] [phone] Casimiro Chavez M.D., Ph.D. [address] [place], [place] [phone] Soha Huggins P.A.-C. [address] [place] [phone] Malignant Neoplasm Of Bladder (HCC) Social History Tobacco Use Types Packs/Day Years Used Date Smoking Tobacco: Former Cigarettes 1 20 0 04/22/1959 - 04/22/1989 Passive Smoke Exposure: Past Smokeless Tobacco: Never Alcohol Use Standard Drinks/Week Comments Yes 6 (1 standard drink = 0.6 oz pur e alcohol) Light social drinker [facility] Utilities Answer Date Recorded In the past 12 months has e [employer], gas, oil, or water [employer] threatened to shut off services in [...] week 05/28/2022 How often do you attend [employer] [facility] or voodoo services? Patient declined 05/28/2022 Do you belong [...] very hard 09/05/2022 [facility] - Occupational Stress Questionnaire Answer Date [...] your living situation today? I have a [facility] place to live 07/05/2024 Education Answer Date Recorded What is the highest level of school you have completed or the highest degree you have received? Bachelor's degree (e.g., BA, AB, BS) 05/16/2019 Sex and Gender Information Value Date Recorded Sex Assigned at Male 01/13/2020 10:41 AM CDT Legal Sex Male 3:35 PM HAIR BOILER Gender Identity Male 04/11/2018 8:29 AM HAIR BOILER Sexual Orientation Straight 04/11/2018 8: 29 AM HAIR BOILER documented as of this encounter Progress Notes [...] a consult on 08/15/24 with oncologist at [facility]. Further discussion regarding transfer of care following [...] PM CDT Clinical Communication Virtual Review in [address] [phone] 10/11/2024 8:10 AM CDT Appointment Department of Laboratory Medicine and Pathology, [facility] in [address] [phone] Soha Huggins, PLilianaA.-CLiliana [address] [place] [phone] 10/11/2024 9:00 AM CDT Appointment Department of Radiology, [facility], in [address] [phone] Soha Huggins P.A.-C. [address] [place] [phone] 10/11/2024 3:40 PM CDT Office Visit Department of Oncology in [address] [place] [address] Casimiro Chavez [place] [phone] Scheduled Orders Name Type Priority Associated Diagnoses [...] Last Indicated Resolved Time Protective Environment 08/05/2024 08/05/2024 documented as of this encounter
--- OUTSIDE RECORDS SUMMARY | 2024-08-05 15:30 | XMS_ITS | Encounter Summary ---
Author Organization [facility] Address [address] [place] [address] Care Team Providers Care Financial Investigator Name Role Phone Unavailable Primary Care Provider Unavailabl e Reason for Visit * Episode Based Medications (Routine) - Authorized Specialty Diagnoses / Procedures Referred By Contac t Referred To Contact Diagnoses Malignant Neoplasm Of Bladder (HCC) Procedures AK ONDANSETRON HCL INJECTION AK PEMBROLIZUMAB INJ AK INJ ENFORT VEDO-EJFV 0.25MG Casimiro Chavez M.D., Ph.D. [address] [place] [phone] Phone: tel: fax: Casimiro Chavez M.D., Ph.D. [address] [place] [phone] Phone: tel: fax: Referral ID Status Reason Start Date Expiration Date V isits Requested Visits Authorized [id number] Authorized 07/18/2024 10/18/2025 48 48 Encounter Details Date Type Department Care Team (Late st Contact Info) Description 08/05/2024 3:30 PM CDT Infusion Department of Oncology in [place], [place] [address] [place] [phone] Casimiro Chavez M.D., Ph.D. [address] [place] [phone] Malignant Neoplasm Of Bladder (HCC) (Primary Dx) Social History Tobacco Use Types Packs/Day Years Used Date Smoking Tobacco: Former Cigarettes 1 20 0 04/22/1959 - 04/22/1989 Passive Smoke Exposure: Past Smokeless Tobacco: Never Alcohol Use Standard Drinks/Week Comments Yes 6 (1 standard drink = 0.6 oz pur e alcohol) Light social drinker [facility] Utilities Answer Date Recorded In the [...] week 05/28/2022 How often do you attend [facility] or catholic services? Patient declined 05/28/2022 Do you belong to any clubs o r organizations such as gnosticism groups, unions, fraternal or athletic groups, or [...] care, and heating? Not very hard 09/05/2022 [facility] [place] of Occupat ional [facility] - Occupational Stress Questionnaire Answer Date Recorded [...] have a [facility] place to live 07/05/2024 Education Answer Date Recorded What is the highest level of school you have completed or the highest degree you have received? 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 Gender Identity Male 04/11/2018 8:29 AM COUPON COLLECTION CLERK Sexual Orientation Straight 04/11/2018 8: 29 AM COUPON COLLECTION CLERK documented as of this encounter Plan of Treatment Upcoming Encounters Date Type Department Care Team (Latest Contact Info) Description 10/10/2024 2:30 PM CDT Clinical Communication Virtual Review in [place], [place] 200 [place] [phone] 10/11/2024 8:10 AM CDT Appointment Department of Laboratory Medicine and Pathology, [facility] in [place], [place] [address] [place] [phone] Soha Huggins P.A.-CLiliana [address] [place] [phone] 10/11/2024 9:00 AM CDT Appointment Department of Radiology, [facility] in [address] [phone] Soha Huggins P.A.-Juan Carlos [address] [place] [phone] 10/11/2024 3:40 PM CDT Office Visit Department of Oncology in [address] [phone] Casimiro Chavez M.D., Ph.D. [address] [place] [phone] documented as of this encounter Visit Diagnoses Diagnosis Malignant Neoplasm Of Bladder (HCC)- Primary documented in this encounter Administered Medications Inactive Administered Medications - up to 3 most recent administrations Medication Order MAR Action Action Date Dose Rate Site enfortumab vedotin-ejfv 125 mg in NaCl 0.9% 122.5 mL IVPB (Padcev) 125 mg (rounded from 165 mg = 1.25 mg/kg 132 kg Treatment plan Measured weight), intravenous, at 245 mL/hr, Administer over 30 Minutes, Once, On Thu08/05/24 at 1532, For 1 dose, Do NOT shake. Handle with care. PROTECT FROM LIGHT.Indications:Malignant Neoplasm Of Bladder (HCC) New Bag 08/05/2024 4:11 PM CDT 125 mg 245 m L/hr NaCl 0.9 % bolus 1,000 mL 1,000 mL, intravenous, at 1,000 mL/hr, Administer over 1 Hours, Once, On Thu08/05/24 at 1532, For 1 doseIndications:Malignant Neoplasm Of Bladder (HCC) New Bag 08/05/2024 4:03 PM CDT 1,000 mL 1000 mL/hr ondansetron (PF) injection 8 mg (Zofran) 8 mg, intravenous, Once, On Thu08/05/24 at 1532, For 1 doseIndications:Malignant Neoplasm Of Bladder (HCC) Given 08/05/2024 4:03 PM CDT 8 mg pembrolizumab 200 mg in NaCl 0.9% 118 mL IVPB (Keytruda) 200 mg, intravenous, at 236 mL/hr, Administer over 30 Minutes, Once, On Thu08/05/24 at 1700, For 1 dose, Do not co-administer other drugs through the same infusion line. Do not shake. Use low protein binding filter (pore size of 0.2-5 micron).Indications:Maligna nt Neoplasm Of Bladder (HCC) New Bag 08/05/2024 5:02 PM CDT 200 mg 236 mL/hr sodium chloride 0.9 % injection 10 mL 10 mL, intravenous, As needed, line care, Starting on Thu08/05/24 at 1537, Prior to blood sampling, post blood transfusion, or post blood sampling.Indications:Malign ant Neoplasm Of Bladder (HCC) Given 08/05/2024 5:30 PM CDT 10 mL Given 08/05/2024 4:49 PM CDT 20 mL Given 08/05/2024 4:45 PM CDT 20 mL documented in this encounter Additional Health Concerns Infection Onset Date Last Indicated Resolved Time Protective Environment 08/05/2024 08/05/2024 documented as of this encounter
--- OUTSIDE RECORDS SUMMARY | 2024-08-12 10:00 | XMS_ITS | Encounter Summary ---
Author Organization [facility] Address [address] [place] [address] Care Team Providers Care Client Care Representative Name Role Phone Unavailable Primary Care Provider Unavailabl e Reason for Visit * Episode Based Medications (Routine) - Authorized Specialty Diagnoses / Procedures Referred By Contac t Referred To Contact Diagnoses Malignant Neoplasm Of Bladder (HCC) Procedures AK ONDANSETRON HCL INJECTION AK PEMBROLIZUMAB INJ AK INJ ENFORT VEDO-EJFV 0.25MG Casimiro Chavez M.D., Ph.D. [address] [place] [phone] Phone: tel: fax: Casimiro Chavez M.D., Ph.D. [address] [place] [phone] Phone: tel: fax: Referral ID Status Reason Start Date Expiration Date V isits Requested Visits Authorized [id number] Authorized 07/18/2024 10/18/2025 48 48 Encounter Details Date Type Department Care Team (Late st Contact Info) Description 08/12/2024 10:00 AM CDT Infusion Department of Oncology in [facility], [place] [address] [place] [phone] Casimiro Chavez M.D., Ph.D. [address] [place] [phone] Malignant Neoplasm Of Bladder (HCC) (Primary Dx) Social History Tobacco Use Types Packs/Day Years Used Date Smoking Tobacco: Former Cigarettes 1 20 0 04/22/1959 - 04/22/1989 Passive Smoke Exposure: Past Smokeless Tobacco: Never Alcohol Use Standard Drinks/Week Comments Yes 6 (1 standard drink = 0.6 oz pur e alcohol) Light social drinker [facility] Utilities Answer Date Recorded In the [...] week 05/28/2022 How often do you attend [facility] or church services? Patient declined 05/28/2022 Do you belong to any clubs o r organizations such as voodoo groups, unions, fraternal or athletic groups, or [...] care, and heating? Not very hard 09/05/2022 [facility] of Occupat ional [facility] - Occupational Stress Questionnaire Answer Date Recorded [...] AM CDT Legal Sex Male 3:35 PM EVENT SECURITY OFFICER Gender Identity Male 04/11/2018 8:29 AM EVENT SECURITY OFFICER Sexual Orientation Straight 04/11/2018 8: 29 AM EVENT SECURITY OFFICER documented as of this encounter Last Filed [...] PM CDT Clinical Communication Virtual Review in [facility], [place] 200 [place] [address] 10/11/2024 8:10 AM CDT Appointment Department of Laboratory Medicine and Pathology, [facility] in [address] [phone] Soha Huggins, P.A.-C. [address] [place] [phone] 10/11/2024 9:00 AM CDT Appointment Department of Radiology, [facility], in [address] [phone] Soha Huggins, P.A.-CLiliana [address] [place] [phone] 10/11/2024 3:40 PM CDT Office Visit Department of Oncology in [address] [phone] Casimiro Chavez M.D., Ph.D. [address] [place] [phone] documented as of this encounter Visit Diagnoses [...]
[2024-09-06] VITALS (35 sets, daily range): BP systolic 124–178; BP diastolic 59–90; PULSE 58–86; RESP 16–22; TEMP 35.8–36.6; O2SAT 93–99; BMI 36.2
--- OUTSIDE RECORDS SUMMARY | 2024-09-06 14:39 | XMS_ITS | Encounter Summary ---
Author Organization [facility] Address [address] [place] [phone] Care Team Providers Care Forestry And Wildlife Manager Name Role Phone None Reported, Pcp Primary Care Provider Unavail able Encounter Details Date Type Department Care Team (Late st Contact Info) Description 07/12/2024 Orders Only Department of Oncology in [place], [place] [address] [place] [phone] Izabella Garza M.D. [address] [place] [phone] Social History Tobacco Use Types Packs/Day Years Used Date Smoking Tobacco: Former Cigarettes 1 20 0 04/22/1959 - 04/22/1989 Smokeless Tobacco: Never Alcohol Use Standard Drinks/Week Comments Yes 6 (1 standard drink = 0.6 oz pur e alcohol) 1 cup coffee daily [employer] Utilities Answer Date Recorded In the past 12 months has Evino, oil, or water Scour Prevention threatened to shut off services in your [...] 05/28/2022 How often do you attend [facility] or [employer] services? Patient declined 05/28/2022 Do you belong [...] care, and heating? Not very hard 09/05/2022 [facility] of Occupat ional Health - Occupational [...] your living situation today? I have a [facility] place to live 07/05/2024 Education Answer Date Recorded What is the highest level of school you have completed or the highest degree you have received? Bachelor's degree (e.g., BA, AB, BS) 05/16/2019 Sex and Gender Information Value Date Recorded Sex Assigned at Male 01/13/2020 10:41 AM CDT Legal Sex Male 3:35 PM GAME FARM HELPER Gender Identity Male 04/11/2018 8:29 AM GAME FARM HELPER Sexual Orientation Straight 04/11/2018 8: 29 AM GAME FARM HELPER documented as of this encounter Plan of Treatment Upcoming Encounters Date Type Department Care Team (Latest Contact Info) Description 10/10/2024 2:30 PM CDT Clinical Communication Virtual Review in [place], [place] [address] [place] [phone] 10/11/2024 8:10 AM CDT Appointment Department of Laboratory Medicine and Pathology, [facility], in [place], [place] [address] [place] [phone] Soha Huggins P.A.-C. [address] [place] [phone] 10/11/2024 9:00 AM CDT Appointment Department of Radiology, [facility], in [place], [place] [address] [place] [address] Soha Huggins P.A.-C. [address] [place] [phone] 10/11/2024 3:40 PM CDT Office Visit Department of Oncology in [place], [place] [address] [place] [phone] Casimiro Chavez M.D., Ph.D. [address] [place] [phone] documented as of this encounter Visit Diagnoses Not on filedocumented in this encounter Care Teams Forestry And Wildlife Manager Relationship Specialty Start Date End Date None Reported, Pcp PCP - General Family Medicine 10/13/22 08/03/24 documented as of this encounter
--- OUTSIDE RECORDS SUMMARY | 2024-09-06 14:39 | XMS_ITS | Encounter Summary ---
Author Organization [facility] Address [address] [place] [address] Care Team Providers Care Fur Repairer Name Role Phone Unavailable Primary Care Provider Unavailabl e Reason for Visit * Reason Onset Date Comments Order Request 08/05/2024 Encounter Details Date Type Department Care Team (Late st Contact Info) Description 08/05/2024 Clinical Communication Department of Oncology in [place], [place] [address] [place] [phone] Casimiro Chavez M.D., Ph.D. [address] [place] [phone] Order Request Social History Tobacco Use Types Packs/Day Years Used Date Smoking Tobacco: Former Cigarettes 1 20 0 04/22/1959 - 04/22/1989 Passive Smoke Exposure: Past Smokeless Tobacco: Never Alcohol Use Standard Drinks/Week Comments Yes 6 (1 standard drink = 0.6 oz pur e alcohol) Light social drinker [facility] Utilities Answer Date Recorded In the past 12 months has [employer], gas, oil, or water [employer] threatened to shut off services in your [...] How often do you attend chur or mandaeism services? Patient declined 05/28/2022 Do you belong to any clubs o r organizations such as baptist groups, unions, fraternal or athletic groups, or [...] care, and heating? Not very hard 09/05/2022 [facility] of Occupat ional Health - Occupational Stress [...] your living situation today? I have a [facility] place to live 07/05/2024 Education Answer Date Recorded What is the highest level of school you have completed or the highest degree you have received? Bachelor's degree (e.g., BA, AB, BS) 05/16/2019 Sex and Gender Information Value Date Recorded Sex Assigned at Male 01/13/2020 10:41 AM CDT Legal Sex Male 3:35 PM EXTRACTOR FILLER Gender Identity Male 04/11/2018 8:29 AM EXTRACTOR FILLER Sexual Orientation Straight 04/11/2018 8: 29 AM EXTRACTOR FILLER documented as of this encounter Plan of Treatment Upcoming Encounters Date Type Department Care Team (Latest Contact Info) Description 10/10/2024 2:30 PM CDT Clinical Communication Virtual Review in [place], [place] 200 [place] [address] 10/11/2024 8:10 AM CDT Appointment Department of Laboratory Medicine and Pathology, [facility], in [place], [place] [address] [place] [phone] Soha Huggins, PLilianaALiliana-Mendy. [address] [place] [phone] 10/11/2024 9:00 AM CDT Appointment Department of Radiology, [facility], in [place], [place] [address] [place] [address] Soha Huggins P.A.-C. [address] [place] [phone] 10/11/2024 3:40 PM CDT Office Visit Department of Oncology in [place], [place] [address] [place] [phone] Casimiro Chavez M.D., Ph.D. [address] [place] [phone] documented as of this encounter Visit Diagnoses Not on filedocumented in this encounter Additional Health Concerns Infection Onset Date Last Indicated Resolved Time Protective Environment 08/05/2024 08/05/2024 documented as of this encounter
--- OUTSIDE RECORDS SUMMARY | 2024-09-06 14:39 | XMS_ITS | Encounter Summary ---
Author Organization [facility] Address [address] [place] [address] Care Team Providers Care Transformer Stock Clerk Name Role Phone None Reported, Pcp Primary Care Provider Unavail able Encounter Details Date Type Department Care Team (Late st Contact Info) Description 07/08/2024 Results Follow-Up Department of Urology in [place], [place] [address] [place] [phone] Austin, Carol, JALEESA, C.N.P., D.N.P., M.S. [address] [place] [phone] [address] Lymph Node Biopsy, Cytology Fine Needle Aspiration (including core biopsies) Social History Tobacco Use Types Packs/Day Years Used Date Smoking Tobacco: Former Cigarettes 1 20 0 04/22/1959 - 04/22/1989 Smokeless Tobacco: Never Alcohol Use Standard Drinks/Week Comments Yes 6 (1 standard drink = 0.6 oz pur e alcohol) 1 cup coffee daily [facility] Utilities Answer Date Recorded In the past 12 months has e [employer], gas, oil, or water company threatened to [...] How often do you attend chur or orthodoxy services? Patient declined 05/28/2022 Do you belong to any clubs o r organizations such as advent groups, unions, fraternal or athletic groups, or [...] care, and heating? Not very hard 09/05/2022 [facility] [place] of Occupat ional Health - Occupational Stress [...] your living situation today? I have a [facility] place to live 07/05/2024 Education Answer Date Recorded What is the highest level of school you have completed or the highest degree you have received? Bachelor's degree (e.g., BA, AB, BS) 05/16/2019 Sex and Gender Information Value Date Recorded Sex Assigned at Male 01/13/2020 10:41 AM CDT Legal Sex Male 3:35 PM MANAGER FREELANCE Gender Identity Male 04/11/2018 8:29 AM MANAGER FREELANCE Sexual Orientation Straight 04/11/2018 8: 29 AM MANAGER FREELANCE documented as of this encounter Plan of Treatment Upcoming Encounters Date Type Department Care Team (Latest Contact Info) Description 10/10/2024 2:30 PM CDT Clinical Communication Virtual Review in [place], [place] [address] [place] [address] 10/11/2024 8:10 AM CDT Appointment Department of Laboratory Medicine and Pathology, [facility], in [place], [place] [address] [place] [phone] Soha Huggins, PLilianaA.-C. [address] [place] [phone] 10/11/2024 9:00 AM CDT Appointment Department of Radiology, [facility], in [place], [place] [address] [place] [address] Soha Huggins P.A.-C. [address] [place] [phone] 10/11/2024 3:40 PM CDT Office Visit Department of Oncology in [place], [place] [address] [place] [address] Casimiro Chavez M.D., Ph.D. [address] [place] [phone] documented as of this encounter Visit Diagnoses Not on filedocumented in this encounter Additional Health Concerns Infection Onset Date Last Indicated Resolved Time Protective Environment 08/05/2024 08/05/2024 documented as of this encounter Care Teams Transformer Stock Clerk Relationship Specialty Start Date End Date None Reported, Pcp PCP - General Family Medicine 10/13/22 08/03/24 documented as of this encounter
--- OUTSIDE RECORDS SUMMARY | 2024-09-06 14:39 | XMS_ITS ---
Author Organization [facility] Address [address] [place] [address] Care Team Providers Care Poke In Name Role Phone Unavailable Unavailable Unavailable Allergies, Adverse Reactions, Alerts This patient has no known allergies or adverse reactions. Problems This patient has no known problems.
--- OUTSIDE RECORDS SUMMARY | 2024-09-06 14:39 | XMS_ITS | Encounter Summary ---
Author Organization [facility] Address [address] [place] [address] Care Team Providers Care Injection Machine Operator Name Role Phone None Reported, Pcp Primary Care Provider Unavail able Encounter Details Date Type Department Care Team (Late st Contact Info) Description 07/27/2024 Orders Only Department of Oncology in [place], [place] [address] [place] [address] Tung Walker Malignant Neoplasm Of Bladder (HCC) (Primary Dx) Social History Tobacco Use Types Packs/Day Years Used Date Smoking Tobacco: Former Cigarettes 1 20 0 04/22/1959 - 04/22/1989 Smokeless Tobacco: Never Alcohol Use Standard Drinks/Week Comments Yes 6 (1 standard drink = 0.6 oz pur e alcohol) [address] [facility] Utilities Answer Date Recorded In the past 12 months has [facility] [employer], gas, oil, or water [employer] threatened to shut off services in your [...] How often do you attend chur or spiritism services? Patient declined 05/28/2022 Do you belong to any clubs o r organizations such as tenriism groups, unions, [employer]ountain [employer] or athletic groups, or school groups? No [...] care, and heating? Not very hard 09/05/2022 [facility] ional Health - Occupational Stress Questionnaire Answer [...] [facility] place to live 07/05/2024 Education Answer Date Recorded What is the highest level of school you have completed or the highest degree you have received? Bachelor's degree (e.g., BA, AB, BS) 05/16/2019 Sex and Gender Information Value Date Recorded Sex Assigned at Male 01/13/2020 10:41 AM CDT Legal Sex Male 3:35 PM FINISHING INSPECTOR Gender Identity Male 04/11/2018 8:29 AM FINISHING INSPECTOR Sexual Orientation Straight 04/11/2018 8: 29 AM FINISHING INSPECTOR documented as of this encounter Plan of Treatment Upcoming Encounters Date Type Department Care Team (Latest Contact Info) Description 10/10/2024 2:30 PM CDT Clinical Communication Virtual Review in [place], [place] 200 [place] [address] 10/11/2024 8:10 AM CDT Appointment Department of Laboratory Medicine and Pathology, [facility] in [place], [place] [address] [place] [phone] Soha Huggins P.A.-C. [address] [place] [phone] 10/11/2024 9:00 AM CDT Appointment Department of Radiology, [facility], in [place], [place] [address] [place] [address] Soha Huggins P.A.-C. [address] [place] [phone] 10/11/2024 3:40 PM CDT Office Visit Department of Oncology in [place], [place] [address] [place] [phone] Casimiro Chavez M.D., Ph.D. [address] [place] [phone] documented as of this encounter Results * [facility] Research, Urine (08/05/2024 11:02 AM CDT) Number of Specimens 1 08/05/2024 11:02 AM CDT HSS Urine (Urine, Midstream) 08/05/2024 11:02 AM CDT 08/05/2024 11:02 AM CDT us Casimiro Chavez M.D., Ph.D. LAB RESEARCH NO RESULT ROUTING Final Result [facility] [address] 200 [place] [address] * [facility] Research, Blood (08/05/2024 10:52 AM CDT) Number of Specimens 1 08/05/2024 10:52 AM CDT HSS Blood (Blood, Venous) 08/05/2024 10:52 AM CDT 08/05/2024 10:52 AM CDT us Casimiro Chavez M.D., Ph.D. LAB RESEARCH NO RESULT ROUTING Final Result [facility] 200 [place], [place] [address] 200 [place] [address] * [facility] Research, Blood (08/05/2024 10:52 AM CDT) Number of Specimens 6 08/05/2024 10:52 AM CDT HS Blood (Blood, Venous) 08/05/2024 10:52 AM CDT 08/05/2024 10:52 AM CDT Casimiro Chavez M.D., Ph.D. LAB RESEARCH NO RESULT ROUTING Final Result [facility] 200 [place] [address], [facility] 200 [place] [address] documented in this encounter Visit Diagnoses Diagnosis Malignant Neoplasm Of Bladder (HCC)- Primary documented in this encounter Care Teams Injection Machine Operator Relationship Specialty Start Date End Date None Reported, Pcp PCP - General Family Medicine 10/13/22 08/03/24 documented as of this encounter
--- OUTSIDE RECORDS SUMMARY | 2024-09-06 14:39 | XMS_ITS | Encounter Summary ---
Author Organization [facility] Address [address] [place] [address] Care Team Providers Care Flight/Transport Nurse Name Role Phone None Reported, Pcp Primary Care Provider Unavail able Encounter Details Date Type Department Care Team (Late st Contact Info) Description 06/24/2024 Results Follow-Up Department of Urology in [place], [place] [address] [place] [phone] Austin, Carol, JALEESA, C.N.P., D.N.P., M.S. [address] [place] [phone] [address] Urogram without and with IV Contrast Social History Tobacco Use Types Packs/Day Years Used Date Smoking Tobacco: Former Cigarettes 1 20 0 04/22/1959 - 04/22/1989 Smokeless Tobacco: Never Alcohol Use Standard Drinks/Week Comments Yes 6 (1 standard drink = 0.6 oz pur e alcohol) 1 cup coffee daily [employer] Utilities Answer Date Recorded In the past 12 months has [employer], gas, oil, or water [employer] threatened to shut off services in your [...] How often do you attend chur or bahai services? Patient declined 05/28/2022 Do you belong to any clubs o r organizations such as yazidism groups, unions, fraZaldiva or athletic groups, or school groups? No [...] care, and heating? Not very hard 09/05/2022 [facility] of Occupat ional Health - Occupational Stress [...] your living situation today? I have a [facility] place to live 07/05/2024 Education Answer Date Recorded What is the highest level of school you have completed or the highest degree you have received? Bachelor's degree (e.g., BA, AB, BS) 05/16/2019 Sex and Gender Information Value Date Recorded Sex Assigned at Male 01/13/2020 10:41 AM CDT Legal Sex Male 3:35 PM ADVANCED ANALYTICS ASSOCIATE Gender Identity Male 04/11/2018 8:29 AM ADVANCED ANALYTICS ASSOCIATE Sexual Orientation Straight 04/11/2018 8: 29 AM ADVANCED ANALYTICS ASSOCIATE documented as of this encounter Plan of Treatment Upcoming Encounters Date Type Department Care Team (Latest Contact Info) Description 10/10/2024 2:30 PM CDT Clinical Communication Virtual Review in [place], [place] [address] [place] [address] 10/11/2024 8:10 AM CDT Appointment Department of Laboratory Medicine and Pathology, [facility], in [place], [place] [address] [place] [phone] Soha Huggins, PLilianaA.-C. [address] [place] [phone] 10/11/2024 9:00 AM CDT Appointment Department of Radiology, [facility], in [place], [place] [address] [place] [address] Soha Huggins P.A.-C. [address] [place] [phone] 10/11/2024 3:40 PM CDT Office Visit Department of Oncology in [place], [place] [address] [place] [phone] Casimiro Chavez M.D., Ph.D. [address] [place] [phone] documented as of this encounter Visit Diagnoses Not on filedocumented in this encounter Care Teams Flight/Transport Nurse Relationship Specialty Start Date End Date None Reported, Pcp PCP - General Family Medicine 10/13/22 08/03/24 documented as of this encounter
--- OUTSIDE RECORDS SUMMARY | 2024-09-06 14:39 | XMS_ITS | Encounter Summary ---
Author Organization [facility] Address [address] [place] [address] Care Team Providers Care Psych Assistant Name Role Phone Unavailable Primary Care Provider Unavailabl e Encounter Details Date Type Department Care Team (Late st Contact Info) Description 08/21/2024 CPAP Download Remote Patient Monitoring [facility] 200 [place] [phone] [facility], Provider, Social History Tobacco Use Types Packs/Day Years Used Date Smoking Tobacco: Former Cigarettes 1 20 0 04/22/1959 - 04/22/1989 Passive Smoke Exposure: Past Smokeless Tobacco: Never Alcohol Use Standard Drinks/Week Comments Yes 6 (1 standard drink = 0.6 oz pur e alcohol) Light social drinker [facility] Utilities Answer Date Recorded In [...] How often do you attend chur or temple services? Patient declined 05/28/2022 Do you belong to any clubs o r organizations such as adventism groups, unions, fraternal or athletic groups, or [...] care, and heating? Not very hard 09/05/2022 [facility] of Occupat ional Health - [...] your living situation today? I have a [facility] place to live 07/05/2024 Education Answer Date Recorded What is the highest level of school you have completed or the highest degree you have received? Bachelor's degree (e.g., BA, AB, BS) 05/16/2019 Sex and Gender Information Value Date Recorded Sex Assigned at Male 01/13/2020 10:41 AM CDT Legal Sex Male 3:35 PM INDUSTRIAL ILLUMINATING ENGINEER Gender Identity Male 04/11/2018 8:29 AM INDUSTRIAL ILLUMINATING ENGINEER Sexual Orientation Straight 04/11/2018 8: 29 AM INDUSTRIAL ILLUMINATING ENGINEER documented as of this encounter Plan of Treatment Upcoming Encounters Date Type Department Care Team (Latest Contact Info) Description 10/10/2024 2:30 PM CDT Clinical Communication Virtual Review in [place], [place] [address] [place] [address] 10/11/2024 8:10 AM CDT Appointment Department of Laboratory Medicine and Pathology, [facility] in [place], [place] [address] [place] [address] Soha Huggins, P.ALiliana-C. [address] [place] [phone] 10/11/2024 9:00 AM CDT Appointment Department of Radiology, [facility], in [place], [place] [address] [place] [address] SpychallSoha hernández P.A.-C. [address] [place] [phone] 10/11/2024 3:40 PM CDT Office Visit Department of Oncology in [place], [place] [address] [place] [phone] Casimiro Chavez M.D., Ph.D. [address] [place] [phone] documented as of this encounter Visit Diagnoses Not on filedocumented in this encounter Additional Health Concerns Infection Onset Date Last Indicated Resolved Time Protective Environment 08/05/2024 08/05/2024 documented as of this encounter
--- OUTSIDE RECORDS SUMMARY | 2024-09-06 14:39 | XMS_ITS | Encounter Summary ---
Author Organization [facility] Address [address] [place] [address] Care Team Providers Care Data Transcriber Name Role Phone Unavailable Primary Care Provider Unavailabl e Encounter Details Date Type Department Care Team (Late st Contact Info) Description 08/05/2024 Orders Only Department of Oncology in [place], [place] [address] [place] [address] Tung Walker Malignant Neoplasm Of Bladder (HCC) (Primary Dx) Social History Tobacco Use Types Packs/Day Years Used Date Smoking Tobacco: Former Cigarettes 1 20 0 04/22/1959 - 04/22/1989 Passive Smoke Exposure: Past Smokeless Tobacco: Never Alcohol Use Standard Drinks/Week Comments Yes 6 (1 standard drink = 0.6 oz pur e alcohol) Light social drinker [facility] Utilities Answer Date Recorded In the past 12 months has [facility] [employer], gas, oil, or water [employer] threatened to shut off services in your [...] How often do you attend chur or catholic services? Patient declined 05/28/2022 Do you belong to any clubs o r organizations such as restorationist groups, unions, [employer] or athletic groups, or school groups? No [...] care, and heating? Not very hard 09/05/2022 [facility] of Occupat ional Health - Occupational [...] your living situation today? I have a [facility] place to live 07/05/2024 Education Answer Date Recorded What is the highest level of school you have completed or the highest degree you have received? Bachelor's degree (e.g., BA, AB, BS) 05/16/2019 Sex and Gender Information Value Date Recorded Sex Assigned at Male 01/13/2020 10:41 AM CDT Legal Sex Male 3:35 PM DESIGN PRINTER BALLOON Gender Identity Male 04/11/2018 8:29 AM DESIGN PRINTER BALLOON Sexual Orientation Straight 04/11/2018 8: 29 AM DESIGN PRINTER BALLOON documented as of this encounter Plan of Treatment Upcoming Encounters Date Type Department Care Team (Latest Contact Info) Description 10/10/2024 2:30 PM CDT Clinical Communication Virtual Review in [place], [place] [address] [place] [address] 10/11/2024 8:10 AM CDT Appointment Department of Laboratory Medicine and Pathology, [facility] in [place], [place] [address] [place] [phone] Soha Huggins P.A.-C. [address] [place] [phone] 10/11/2024 9:00 AM CDT Appointment Department of Radiology, [facility], in [place], [place] [address] [place] [address] Soha Huggins P.A.-C. [address] [place] [phone] 10/11/2024 3:40 PM CDT Office Visit Department of Oncology in [place], [place] [address] [place] [phone] Casimiro Chavez M.D., Ph.D. [address] [place] [phone] documented as of this encounter Results * [facility] Research, Blood (08/05/2024 5:54 PM CDT) Number of Specimens 1 08/05/2024 5:54 PM CDT HSS Blood (Blood, Venous) 08/05/2024 5:54 PM CDT 08/05/2024 5:54 PM CDT us Casimiro Chavez M.D., Ph.D. LAB RESEARCH NO RESULT ROUTING Final Result [facility] 200 [place] [address], [place] [facility] 200 [place] [address] documented in this encounter Visit Diagnoses Diagnosis Malignant Neoplasm Of Bladder (HCC)- Primary documented in this encounter
--- OUTSIDE RECORDS SUMMARY | 2024-09-06 14:39 | XMS_ITS | Encounter Summary ---
Author Organization [facility] Address [address] [place] [address] Care Team Providers Care Bakery Decorator Name Role Phone None Reported, Pcp Primary Care Provider Unavail able Reason for Visit * Reason Onset Date Comments Appt Request 08/02/2024 Abstract 08/02/2024 Encounter Details Date Type Department Care Team (Latest Contact Info) Description 08/02/2024 Clinical Communication Department of Oncology in [place], [place] [address] [place] [phone] Casiimro Chavez M.D., Ph.D. [address] [place] [phone] Appt Request; Abstract Social History Tobacco Use Types Packs/Day Years Used Date Smoking Tobacco: Former Cigarettes 1 20 0 04/22/1959 - 04/22/1989 Smokeless Tobacco: Never Alcohol Use Standard Drinks/Week Comments Yes 6 (1 standard drink = 0.6 oz pur e alcohol) 1 cup coffee daily [facility] Utilities Answer Date Recorded In the past 12 months has e [employer], gas, oil, or water [employer] threatened to shut off services in your [...] How often do you attend chur or yazdanism services? Patient declined 05/28/2022 Do you belong to any clubs o r organizations such as yarsanism groups, unions, fraternal or athletic groups, or [...] care, and heating? Not very hard 09/05/2022 [facility] [place] of Occupat ional Health - Occupational Stress [...] your living situation today? I have a [facility] place to live 07/05/2024 Education Answer Date Recorded What is the highest level of school you have completed or the highest degree you have received? Bachelor's degree (e.g., BA, AB, BS) 05/16/2019 Sex and Gender Information Value Date Recorded Sex Assigned at Male 01/13/2020 10:41 AM CDT Legal Sex Male 3:35 PM PAPERHANGER AND PAINTER Gender Identity Male 04/11/2018 8:29 AM PAPERHANGER AND PAINTER Sexual Orientation Straight 04/11/2018 8: 29 AM PAPERHANGER AND PAINTER documented as of this encounter Plan of Treatment Upcoming Encounters Date Type Department Care Team (Latest Contact Info) Description 10/10/2024 2:30 PM CDT Clinical Communication Virtual Review in [place], [place] [address] [place] [phone] 10/11/2024 8:10 AM CDT Appointment Department of Laboratory Medicine and Pathology, [facility], in [place], [place] [address] [place] [phone] Soha Huggins, P.A.-C. [address] [place] [phone] 10/11/2024 9:00 AM CDT Appointment Department of Radiology, [facility], in [place], [place] [address] [place] [address] Soha Huggins P.A.-C. [address] [place] [phone] 10/11/2024 3:40 PM CDT Office Visit Department of Oncology in [place], [place] [address] [place] [phone] Casimiro Chavez M.D., Ph.D. [address] [place] [phone] documented as of this encounter Visit Diagnoses Not on filedocumented in this encounter Additional Health Concerns Infection Onset Date Last Indicated Resolved Time Protective Environment 08/05/2024 08/05/2024 documented as of this encounter Care Teams Bakery Decorator Relationship Specialty Start Date End Date None Reported, Pcp PCP - General Family Medicine 10/13/22 08/03/24 documented as of this encounter
--- OUTSIDE RECORDS SUMMARY | 2024-09-06 14:39 | XMS_ITS | Encounter Summary ---
Author Organization [facility] Address [address] [place] [address] Care Team Providers Care Steam Tunnel Feeder Name Role Phone Unavailable Primary Care Provider Unavailabl e Reason for Visit * Reason Onset Date Comments Rx Approval 08/09/2024 Hydroxyzine HCL 25 mg Encounter Details Date Type Department Care Team (Latest Contact Info) Description 08/09/2024 Clinical Communication Pharmacy Prior Auth [phone] Mague Aleman Rx Approval (Hydroxyzine HCL 25 mg) Social History Tobacco Use Types Packs/Day Years Used Date Smoking Tobacco: Former Cigarettes 1 20 0 04/22/1959 - 04/22/1989 Passive Smoke Exposure: Past Smokeless Tobacco: Never Alcohol Use Standard Drinks/Week Comments Yes 6 (1 standard drink = 0.6 oz pur e alcohol) Light social drinker [facility] Utilities Answer Date Recorded In the past 12 months has [facility] [employer], gas, oil, or water [employer] threatened to shut off services in [...] How often do you attend [facility] or baptist services? Patient declined 05/28/2022 Do you belong to any clubs o r organizations such as druze groups, unions, fraternal or athletic groups, or [...] care, and heating? Not very hard 09/05/2022 [facility] of Occupat ional [facility] - Occupational Stress Questionnaire Answer Date Recorded [...] your living situation today? I have a [facility] place to live 07/05/2024 Education Answer Date Recorded What is the highest level of school you have completed or the highest degree you have received? Bachelor's degree (e.g., BA, AB, BS) 05/16/2019 Sex and Gender Information Value Date Recorded Sex Assigned at Male 01/13/2020 10:41 AM CDT Legal Sex Male 3:35 PM SALES SUPERVISOR Gender Identity Male 04/11/2018 8:29 AM SALES SUPERVISOR Sexual Orientation Straight 04/11/2018 8: 29 AM SALES SUPERVISOR documented as of this encounter Miscellaneous Notes * Telephone Encounter - Mague Aleman - 08/09/2024 4:19 PM CDT Pharmaceutical prior authorization has been approved for Hydroxyzine HCL 25 mg. If you have any follow-up questions, please send an [employer] in [employer] of [employer] message to P [facility] POOL. documented in this encounter Plan of Treatment Upcoming Encounters Date Type Department Care Team (Latest Contact Info) Description 10/10/2024 2:30 PM CDT Clinical Communication Virtual Review in [place] [address] [place] [phone] 10/11/2024 8:10 AM CDT Appointment Department of Laboratory Medicine and Pathology, [facility], in [place], [place] [address] [place] [phone] Soha Huggins P.A.-C. [address] [place] [phone] 10/11/2024 9:00 AM CDT Appointment Department of Radiology, [facility] in [place], [place] [address] [place] [phone] Soha Huggins P.A.-C. [address] [place] [phone] 10/11/2024 3:40 PM CDT Office Visit Department of Oncology in [place], [place] [address] [place] [phone] Casimiro Chavez M.D., Ph.D. [address] [place] [phone] documented as of this encounter Visit Diagnoses Not on filedocumented in this encounter Additional Health Concerns Infection Onset Date Last Indicated Resolved Time Protective Environment 08/05/2024 08/05/2024 documented as of this encounter
--- OUTSIDE RECORDS SUMMARY | 2024-09-06 14:39 | XMS_ITS | Encounter Summary ---
Author Organization [facility] Address [address] [place] [address] Care Team Providers Care Student Support Services Director Name Role Phone None Reported, Pcp Primary Care Provider Unavail able Encounter Details Date Type Department Care Team (Late st Contact Info) Description 07/29/2024 Orders Only Department of Oncology in [place], [place] [address] [place] [phone] Casimiro Chavez M.D., Ph.D. [address] [place] [phone] Malignant Neoplasm Of Bladder (HCC) (Primary Dx) Social History Tobacco Use Types Packs/Day Years Used Date Smoking Tobacco: Former Cigarettes 1 20 0 04/22/1959 - 04/22/1989 Smokeless Tobacco: Never Alcohol Use Standard Drinks/Week Comments Yes 6 (1 standard drink = 0.6 oz pur e alcohol) 1 cup coffee daily [facility] Utilities Answer Date Recorded In the past 12 months has [employer], gas, oil, or water [employer] threatened to shut off services in your [...] How often do you attend chur or scientology services? Patient declined 05/28/2022 Do you belong [...] care, and heating? Not very hard 09/05/2022 [facility] of Occupat ional Health - Occupational Stress [...] your living situation today? I have a [facility] place to live 07/05/2024 Education Answer Date Recorded What is the highest level of school you have completed or the highest degree you have received? Bachelor's degree (e.g., BA, AB, BS) 05/16/2019 Sex and Gender Information Value Date Recorded Sex Assigned at Male 01/13/2020 10:41 AM CDT Legal Sex Male 3:35 PM NURSE CLINICAL Gender Identity Male 04/11/2018 8:29 AM NURSE CLINICAL Sexual Orientation Straight 04/11/2018 8: 29 AM NURSE CLINICAL documented as of this encounter Plan of Treatment Upcoming Encounters Date Type Department Care Team (Latest Contact Info) Description 10/10/2024 2:30 PM CDT Clinical Communication Virtual Review in [place], [place] [address] [place] [address] 10/11/2024 8:10 AM CDT Appointment Department of Laboratory Medicine and Pathology, [facility], in [place], [place] [address] [place] [phone] Soha Huggins, PLilianaALiliana-C. [address] [place] [phone] 10/11/2024 9:00 AM CDT Appointment Department of Radiology, [facility], in [place], [place] [address] [place] [address] Soha Huggins P.A.-C. [address] [place] [phone] 10/11/2024 3:40 PM CDT Office Visit Department of Oncology in [place], [place] [address] [place] [phone] Casimiro Chavez M.D., Ph.D. [address] [place] [phone] documented as of this encounter Visit Diagnoses Diagnosis Malignant Neoplasm Of Bladder (HCC)- Primary documented in this encounter Care Teams Student Support Services Director Relationship Specialty Start Date End Date None Reported, Pcp PCP - General Family Medicine 10/13/22 08/03/24 documented as of this encounter
--- OUTSIDE RECORDS SUMMARY | 2024-09-06 14:39 | XMS_ITS | Encounter Summary ---
Author Organization [facility] Address [address] [place] [address] Care Team Providers Care Wool Washer Feeder Name Role Phone None Reported, Pcp Primary Care Provider Unavail able Encounter Details Date Type Department Care Team (Late st Contact Info) Description 07/21/2024 CPAP Download Remote Patient Monitoring [facility] [address] [place] [address] [facility], Provider, Social History Tobacco Use Types Packs/Day Years Used Date Smoking Tobacco: Former Cigarettes 1 20 0 04/22/1959 - 04/22/1989 Smokeless Tobacco: Never Alcohol Use Standard Drinks/Week Comments Yes 6 (1 standard drink = 0.6 oz pur e alcohol) [address] [facility] Utilities Answer Date Recorded In the past 12 months has th e [employer], gas, oil, or water [employer] threatened to shut off services in your [...] often do you attend chur ch or baptism services? Patient declined 05/28/2022 Do you belong [...] care, and heating? Not very hard 09/05/2022 [facility] of Occupat ional Health - Occupational [...] your living situation today? I have a [facility] place to live 07/05/2024 Education Answer Date Recorded What is the highest level of school you have completed or the highest degree you have received? Bachelor's degree (e.g., BA, AB, BS) 05/16/2019 Sex and Gender Information Value Date Recorded Sex Assigned at Male 01/13/2020 10:41 AM CDT Legal Sex Male 3:35 PM PERMIT TECHNICIAN Gender Identity Male 04/11/2018 8:29 AM PERMIT TECHNICIAN Sexual Orientation Straight 04/11/2018 8: 29 AM PERMIT TECHNICIAN documented as of this encounter Plan of Treatment Upcoming Encounters Date Type Department Care Team (Latest Contact Info) Description 10/10/2024 2:30 PM CDT Clinical Communication Virtual Review in [place], [place] [address] [place] [address] 10/11/2024 8:10 AM CDT Appointment Department of Laboratory Medicine and Pathology, [facility] in [place], [place] [address] [place] [phone] Soha Huggins, PLilianaALiliana-CLiliana [address] [place] [phone] 10/11/2024 9:00 AM CDT Appointment Department of Radiology, [facility], in [place], [place] [address] [place] [address] Soha Huggins, P.A.-C. [address] [place] [address] 10/11/2024 3:40 PM CDT Office Visit Department of Oncology in [place], [place] [address] [place] [phone] Casimiro Chavez M.D., Ph.D. 200 [place] [phone] documented as of this encounter Visit Diagnoses Not on filedocumented in this encounter Additional Health Concerns Infection Onset Date Last Indicated Resolved Time Protective Environment 08/05/2024 08/05/2024 documented as of this encounter Care Teams Wool Washer Feeder Relationship Specialty Start Date End Date None Reported, Pcp PCP - General Family Medicine 10/13/22 08/03/24 documented as of this encounter
--- OUTSIDE RECORDS SUMMARY | 2024-09-06 14:39 | XMS_ITS | Encounter Summary ---
Author Organization [facility] Address [address] [place] [address] Care Team Providers Care Compounding Technician Name Role Phone None Reported, Pcp Primary Care Provider Unavail able Reason for Visit * Reason Onset Date Comments Lab Question 07/19/2024 Canceling [employer]us , alternate testing available. Encounter Details Date Type Department Care Team (Latest Contact Info) Description 07/19/2024 Clinical Communication Department of Oncology in [place], [place] [address] [place] [phone] Casimiro Chavez M.D., Ph.D. [address] [place] [phone] Lab Question (Canceling Tempus, alternate testing available. ) Social History Tobacco Use Types Packs/Day Years Used Date Smoking Tobacco: Former Cigarettes 1 20 0 04/22/1959 - 04/22/1989 Smokeless Tobacco: Never Alcohol Use Standard Drinks/Week Comments Yes 6 (1 standard drink = 0.6 oz pur e alcohol) 1 cup coffee daily [facility] Utilities Answer Date Recorded In the past 12 months has [employer], gas, oil, or water company threatened [...] care, and heating? Not very hard 09/05/2022 [employer] of Occupat ional Health - Occupational Stress [...] your living situation today? I have a [facility] place to live 07/05/2024 Education Answer Date Recorded What is the highest level of school you have completed or the highest degree you have received? Bachelor's degree (e.g., BA, AB, BS) 05/16/2019 Sex and Gender Information Value Date Recorded Sex Assigned at Male 01/13/2020 10:41 AM CDT Legal Sex Male 3:35 PM MINING TECHNICIAN Gender Identity Male 04/11/2018 8:29 AM MINING TECHNICIAN Sexual Orientation Straight 04/11/2018 8: 29 AM MINING TECHNICIAN documented as of this encounter Plan of Treatment Upcoming Encounters Date Type Department Care Team (Latest Contact Info) Description 10/10/2024 2:30 PM CDT Clinical Communication Virtual Review in [place], [place] [address] [place] [phone] 10/11/2024 8:10 AM CDT Appointment Department of Laboratory Medicine and Pathology, [facility], in [place], [place] [address] [place] [address] Soha Huggins, PLilianaALiliana-Juan Carlos [address] [place] [address] 10/11/2024 9:00 AM CDT Appointment Department of Radiology, [facility], in [place], [place] [address] [place] [phone] Soha Huggins P.A.-C. [address] [place] [phone] 10/11/2024 3:40 PM CDT Office Visit Department of Oncology in [place], [place] [address] [place] [phone] Casimiro Chavez M.D., Ph.D. [address] [place] [phone] documented as of this encounter Visit Diagnoses Not on filedocumented in this encounter Additional Health Concerns Infection Onset Date Last Indicated Resolved Time Protective Environment 08/05/2024 08/05/2024 documented as of this encounter Care Teams Compounding Technician Relationship Specialty Start Date End Date None Reported, Pcp PCP - General Family Medicine 10/13/22 08/03/24 documented as of this encounter
--- OUTSIDE RECORDS SUMMARY | 2024-09-06 14:39 | XMS_ITS | Encounter Summary ---
Author Organization [facility] Address [address] [place] [address] Care Team Providers Care Converting Operator Name Role Phone Unavailable Primary Care Provider Unavailabl e Encounter Details Date Type Department Care Team (Late st Contact Info) Description 08/10/2024 Orders Only Department of Oncology in [place], [place] [address] [place] [address] Tung Walker Malignant Neoplasm Of Bladder (HCC) (Primary Dx); Secondary Malignant Neoplasm Lymph Node (HCC) Social History Tobacco Use Types Packs/Day Years Used Date Smoking Tobacco: Former Cigarettes 1 20 0 04/22/1959 - 04/22/1989 Passive Smoke Exposure: Past Smokeless Tobacco: Never Alcohol Use Standard Drinks/Week Comments Yes 6 (1 standard drink = 0.6 oz pur e alcohol) Light social drinker [facility] Utilities Answer Date Recorded In the past 12 months has [facility] [employer], gas, oil, or water [employer] threatened to shut off services in your [...] often do you attend [facility] [facility] or anabaptism services? Patient declined 05/28/2022 Do [...] and heating? Not very hard 09/05/2022 [facility] - Occupational Stress Questionnaire Answer [...] your living situation today? I have a [facility] place to live 07/05/2024 Education Answer Date Recorded What is the highest level of school you have completed or the highest degree you have received? Bachelor's degree (e.g., BA, AB, BS) 05/16/2019 Sex and Gender Information Value Date Recorded Sex Assigned at Male 01/13/2020 10:41 AM CDT Legal Sex Male 3:35 PM SPOUTING INSTALLER Gender Identity Male 04/11/2018 8:29 AM SPOUTING INSTALLER Sexual Orientation Straight 04/11/2018 8: 29 AM SPOUTING INSTALLER documented as of this encounter Plan of Treatment Upcoming Encounters Date Type Department Care Team (Latest Contact Info) Description 10/10/2024 2:30 PM CDT Clinical Communication Virtual Review in [place], [place] [address] [place] [address] 10/11/2024 8:10 AM CDT Appointment Department of Laboratory Medicine and Pathology, [facility], in [place], [place] [address] [place] [phone] Soha Huggins P.A.-C. [address] [place] [phone] 10/11/2024 9:00 AM CDT Appointment Department of Radiology, [facility], in [place], [place] [address] [place] [address] Soha Huggins P.A.-C. [address] [place] [phone] 10/11/2024 3:40 PM CDT Office Visit Department of Oncology in [place], [place] [address] [place] [address] Casimiro Chavez M.D., Ph.D. [address] [place] [phone] Scheduled Orders Name Type Priority Associated Diagnoses Orde r Schedule Misc Research, Blood Lab Routine Malignant Neoplasm Of Bladder (HCC) Secondary Malignant Neoplasm Lymph Node (HCC) Expected: 08/26/2024, Expires: 11/09/2025 Misc Research, Urine Lab Routine Malignant Neoplasm Of Bladder (HCC) Secondary Malignant Neoplasm Lymph Node (HCC) Expected: 08/26/2024, Expires: 11/09/2025 documented as of this encounter Visit Diagnoses Diagnosis Malignant Neoplasm Of Bladder (HCC)- Primary Secondary Malignant Neoplasm Lymph Node (HCC) documented in this encounter Additional Health Concerns Infection Onset Date Last Indicated Resolved Time Protective Environment 08/05/2024 08/05/2024 documented as of this encounter
--- OUTSIDE RECORDS SUMMARY | 2024-09-06 14:39 | XMS_ITS | Encounter Summary ---
Author Organization [facility] Address [address] [place] [address] Care Team Providers Care Residential Leasing Manager Name Role Phone None Reported, Pcp Primary Care Provider Unavail able Encounter Details Date Type Department Care Team (Late st Contact Info) Description 07/19/2024 Clinical Communication Department of Oncology in [place], [place] [address] [place] [phone] Casimiro Chavez M.D., Ph.D. [address] [place] [phone] Social History Tobacco Use Types Packs/Day Years Used Date Smoking Tobacco: Former Cigarettes 1 20 0 04/22/1959 - 04/22/1989 Smokeless Tobacco: Never Alcohol Use Standard Drinks/Week Comments Yes 6 (1 standard drink = 0.6 oz pur e alcohol) 1 cup coffee daily [facility] Utilities Answer Date Recorded In the past 12 months has [employer], oil, or water [employer] threatened to shut off services in your [...] week 05/28/2022 How often do you attend [facility] or mandaeism services? Patient declined 05/28/2022 Do [...] care, and heating? Not very hard 09/05/2022 [facility] - Occupational Stress Questionnaire Answer Date [...] your living situation today? I have a [facility] place to live 07/05/2024 Education Answer Date Recorded What is the highest level of school you have completed or the highest degree you have received? Bachelor's degree (e.g., BA, AB, BS) 05/16/2019 Sex and Gender Information Value Date Recorded Sex Assigned at Male 01/13/2020 10:41 AM CDT Legal Sex Male 3:35 PM MINE WEDGE SAWYER Gender Identity Male 04/11/2018 8:29 AM MINE WEDGE SAWYER Sexual Orientation Straight 04/11/2018 8: 29 AM MINE WEDGE SAWYER documented as of this encounter Plan of Treatment Upcoming Encounters Date Type Department Care Team (Latest Contact Info) Description 10/10/2024 2:30 PM CDT Clinical Communication Virtual Review in [place], [place] [address] [place] [address] 10/11/2024 8:10 AM CDT Appointment Department of Laboratory Medicine and Pathology, [facility], in [place], [place] [address] [place] [phone] Soha Huggins P.A.-C. [address] [place] [phone] 10/11/2024 9:00 AM CDT Appointment Department of Radiology, [facility], in [place], [place] [address] [place] [address] Soha Huggins P.A.-C. [address] [place] [phone] 10/11/2024 3:40 PM CDT Office Visit Department of Oncology in [place], [place] [address] [place] [phone] Casimiro Chavez M.D., Ph.D. [address] [place] [phone] documented as of this encounter Visit Diagnoses Not on filedocumented in this encounter Additional Health Concerns Infection Onset Date Last Indicated Resolved Time Protective Environment 08/05/2024 08/05/2024 documented as of this encounter Care Teams Residential Leasing Manager Relationship Specialty Start Date End Date None Reported, Pcp PCP - General Family Medicine 10/13/22 08/03/24 documented as of this encounter
--- OUTSIDE RECORDS SUMMARY | 2024-09-06 14:40 | XMS_ITS ---
Author Organization [facility] Address [address] [place] [address] Care Team Providers Care Boiler Plant Worker Name Role Phone Unavailable Primary Care Provider Unavailabl e Active Problems * This document contains information received from the source organization and may not represent a complete record from that organization. Patient Care Coordination No te Formatting of this note migh t be different from the original. Authorization to disclose protected health information signed for Luz Dwyer - spouse on 04/22/18. Problem Noted Date Diagnosed Date Malignant Neoplasm Of Bladder 07/12/2024 Overview (07/29/2024): Images from the original note were not included. 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 Underwent 6 cycles aduvant gem/cis. 2) 06/2024: Distal left ureteral thickening and left retroperitoneal lymphadenopathy. 06/18/2024: LN biopsy showed urothelial carcinoma. Genetics: Medical history is otherwise notable for HLD, iron deficiency, and HTN. Assessment & Plan (07/18/2024 2:10 PM CDT): We discussed the diagnosis at length as well as expected outcomes, treatment options, risks, benefits, side-effects, warning signs for immediate evaluation, and alternatives. We reviewed available imaging and laboratory results pertinent to the diagnosis and plan. Patient has a good understanding as well as capacity and agrees to proceed with treatment. Recurrent metastatic urothelial cancer. Performance status 2. We discussed a potential role of combined immunotherapy (I.e. pembrolizumab) and Enfortumab vedotin in the setting of advanced cisplatin-ineligible bladder cancer. We discussed significant side-effects and logistics of immunotherapy, including inflammatory reactions involving lung, liver, bowel, kidney, and other organs. We discussed that there is approximately a 15-20% chance of a significant life-altering side- effect. We discussed red flag symptoms for immediate evaluation, including significant diarrhea or dyspnea. We further discussed the requirement for lab monitoring. We discussed significant side-effects and logistics of Enfortumab vedotin, including risk of rash, hematologic toxicity, and others. Red flag symptoms for immediate evaluation were discussed. We discussed the role of genetic testing in this setting. Genetic testing has an important role in cancer. Certain genetic alterations can impact an oncologist's cancer treatment plans and may identify a role for PARP inhibitors, immunotherapy, or other targeted treatments. Somatic testing ordered through [employer]. We discussed that clinical trials are often available at [facility] and that we prioritize clinical trials because we believe these are the most effective treatments available in any given disease state. Patient is eligible for the [employer] study ([id number], [id number]). I reiterated that there is no compensation and no change in treatment being on this study. Patient has consented and will undergo baseline blood draw 07/18/2024. EV/Pembro is planned to start 08/04/2024. I have notified Tung Walker and [email or web address] by email of this patient's participation in the study with the following: Date/Time of Collection: 07/18/2024 IRB#: [id number] ([employer]) Patient Name: Michael Dwyer Patient ID: [id number] Visit #: Baseline We discussed the recommendation of establishing care with a local oncologist to manage medications, side effects, and disease closer to home. Mr. Dwyer agrees and will contact my registered medical assistant (phone: [phone], fax: [phone]) with the name and contact information (including fax number) of this oncologist so we can appropriately coordinate handoff of care. 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 Linked Problems Malignant Neoplasm Of Bladde r (HCC) Treatment Medications Current Day (Day 1 , Cycle 2 - Planned for 08/26/2024) Next Day (Day 8, Cycle 2 - Planned for 09/02/2024) enfortumab vedotin-ejfv (Padcev)enfortumab vedotin-ejfv (Padcev) IVPBpembrolizumab (Keytruda) enfortumab vedotin-ejfv 125 mg in NaCl 0.9% 112.5 mL IVPB (Padcev)pembrolizumab 200 mg in NaCl 0.9% 108 mL IVPB (Keytruda) enfortumab vedotin-ejfv 125 mg in NaCl 0.9% 112.5 mL IVPB (Padcev) Vascular Access Patency - Peripheral Intravenous Catheter and Rapid Infusion Catheter* Plan Start Date:08/05/2024 Linked Problems Malignant Neoplasm Of Blagarethe r (HCC) Treatment Medications No medications scheduled. Past Treatment and Therapy Plans No past plan information found. Lifetime Dose Tracking * Chemical Lifetime Dose Automatic Entry Manual Entr y Radiation 624.44 mGy 624.44 mGy 0 mGy Fluoro Time 11.148 minutes 11.148 minutes 0 minutes DAP (Gy-cm2) 111,177 Gy-cm2 111,177 Gy-cm2 0 Gy-cm2 DAP (mGy-cm2) 2.5 mGy-cm2 2.5 mGy-cm2 0 mGy-cm2 Resolved Problems Problem Noted Date Diagnosed Date Resolved Date Benign Prostatic Hyperplasia With Lower Urinary Tract Symptom 07/25/2009 05/15/2023 Overview (06/02/2022): LW Modifier: s/p TURP ; BPH Age Related Prostate Ca Risk w Obst
--- OUTSIDE RECORDS SUMMARY | 2024-09-06 14:40 | XMS_ITS | Encounter Summary ---
Author Organization [facility] Address [address] [place] [id number] Care Team Providers Care Medicare Interviewer Name Role Phone Unavailable Primary Care Provider Unavailabl e Encounter Details Date Type Department Care Team (Late st Contact Info) Description 08/16/2024 Clinical Communication Department of Oncology in [place], [place] [address] [place] [phone] Casimiro Chavez M.D., Ph.D. [address] [place] [phone] Social History Tobacco Use Types Packs/Day Years Used Date Smoking Tobacco: Former Cigarettes 1 20 0 04/22/1959 - 04/22/1989 Passive Smoke Exposure: Past Smokeless Tobacco: Never Alcohol Use Standard Drinks/Week Comments Yes 6 (1 standard drink = 0.6 oz pur e alcohol) Light social drinker [facility] Utilities Answer Date Recorded In the past 12 months has [employer], gas, oil, or water [employer] threatened to shut off services in your [...] How often do you attend chur or orthodox services? Patient declined 05/28/2022 Do you belong to any clubs o r organizations such as protestant groups, unions, fraternal or athletic groups, or [...] care, and heating? Not very hard 09/05/2022 [facility] of Occupat ional Health - Occupational Stress [...] your living situation today? [facility] 07/05/2024 Education Answer Date Recorded What is the highest level of school you have completed or the highest degree you have received? Bachelor's degree (e.g., BA, AB, BS) 05/16/2019 Sex and Gender Information Value Date Recorded Sex Assigned at Male 01/13/2020 10:41 AM CDT Legal Sex Male 3:35 PM [employer] Gender Identity Male 04/11/2018 8:29 AM [employer] Sexual Orientation Straight 04/11/2018 8: 29 AM [employer] documented as of this encounter Plan of Treatment Upcoming Encounters Date Type Department Care Team (Latest Contact Info) Description 10/10/2024 2:30 PM CDT Clinical Communication Virtual Review in [place], [place] [address] [place] [phone] 10/11/2024 8:10 AM CDT Appointment Department of Laboratory Medicine and Pathology, [facility], in [place], [place] [address] [place] [phone] Soha Huggins P.A.-C. [address] [place] [phone] 10/11/2024 9:00 AM CDT Appointment Department of Radiology, [facility], in [place], [place] [address] [place] [phone] Soha Huggins P.A.-C. [address] [place] [phone] 10/11/2024 3:40 PM CDT Office Visit Department of Oncology in [place], [place] [address] [place] [phone] Casimiro Chavez M.D., Ph.D. [address] [place] [phone] documented as of this encounter Visit Diagnoses Not on filedocumented in this encounter Additional Health Concerns Infection Onset Date Last Indicated Resolved Time Protective Environment 08/05/2024 08/05/2024 documented as of this encounter
--- OUTSIDE RECORDS SUMMARY | 2024-09-06 14:40 | XMS_ITS | Clinical Summary ---
Author Organization [facility] Address [address] [place] [address] Care Team Providers Care Tool Planer Set Up Operator Name Role Phone Unavailable Primary Care Provider Unavailabl e Source Comments Patient records contain information from all sites at [facility]. For routine questions regarding patient records, call [phone] during business hours, M-F 8:00 AM - 5:00 PM Central Time. Record requests for emergency care only can be directed to [phone] at any time.[facility] Allergies No known active allergies Medications * This document contains information received from the source organization and may not represent a complete record from that organization. sennosides-docu sate sodium (SENOKOT-S) 8.6-50 mg per tablet Take 1 tablet by mouth 2 (two) times a day. 11/04/19 17 Active simvastatin (ZOCOR) 40 mg tablet Take 40 mg by mouth at bedtime. 04/23/19 12 Active allopurinol (ZYLOPRIM) 300 mg tablet Take 300 mg by mouth every morning. 04/23/19 12 Active cholecalciferol (VITAMIN D3) 2,000 Unit capsule Take 2,000 Units by mouth every evening. Active turmeric root extract 500 mg capsule Take 500 mg by mouth daily. Active triamcinolone (KENALOG) 0.1 % cream Apply 1 Application topically as needed for irritation or rash. Active atenoloL (TENORMIN) 25 mg tablet Take 25 mg by mouth daily. Active DME Bi-level PAPIndications: Central Sleep Apnea Syndrome,Apnea Sleep Obstructive DME Order 1 each 11 06/13/19 22 Active losartan (COZAAR) 100 mg tablet Take 100 mg by mouth daily. 04/21/19 23 Active KRILL OIL ORAL Take 1 capsule by mouth every evening. Active acetaminophen (TYLENOL) 500 mg tablet Take 1,000 mg by mouth every 6 (six) hours as needed for pain. Active diphenhydramine HCl (ALLERGY ORAL) Take 1 tablet by mouth 2 (two) times a day. Active phentermine 15 mg capsule Take 15 mg by mouth every morning. 04/14/19 25 Active hydroCHLOROthia zide (HydroDiuril) 25 mg tablet Take 25 mg by mouth daily. Active DME Ostomy suppliesIndicat ions:Conduit Ileal (HCC) DME Order 1 Unspecified 06/25/19 25 Active ferrous sulfate 324 mg (65 mg iron) DR tablet Take 65 mg of iron by mouth 3 (three) times a week. Active prochlorperazin e (Compazine) 10 mg tabletIndicatio ns:Malignant Neoplasm Of Bladder (HCC),Secondary Malignant Neoplasm Lymph Node (HCC) Take 1 tablet (10 mg total) by mouth every 6 (six) hours as needed for nausea or vomiting. 30 tablet 08/06/19 25 026 Active ondansetron (Zofran) 8 mg tabletIndicatio ns:Malignant Neoplasm Of Bladder (HCC),Secondary Malignant Neoplasm Lymph Node (HCC) Take 1 tablet (8 mg total) by mouth every 8 (eight) hours as needed for nausea or vomiting (unrelieved by prochlorperazin e). 30 tablet 08/06/19 25 026 Active triamcinolone (Kenalog) 0.1 % lotionIndicatio ns:Malignant Neoplasm Of Bladder (HCC),Secondary Malignant Neoplasm Lymph Node (HCC) Apply 1 Application topically 2 (two) times a day as needed (Rash, Itching). 180 mL 08/06/19 25 Active hydrOXYzine (Atarax) 25 mg tabletIndicatio ns:Malignant Neoplasm Of Bladder (HCC),Secondary Malignant Neoplasm Lymph Node (HCC) Take 1 tablet (25 mg total) by mouth 3 (three) times a day as needed for itching. 30 tablet 08/06/19 25 Active Active Problems Patient Care Coordination No [...] other targeted treatments. Somatic testing ordered through [facility]. We discussed that clinical trials are often available at [facility] and that we prioritize clinical trials because we believe these are the most effective treatments available in any given disease state. Patient is eligible for the NEXUS biobank study ([id number], [id number]). I reiterated that there is no compensation and no change in treatment being on this study. Patient has consented and will undergo baseline blood draw 07/18/2024. EV/Pembro is planned to start 08/04/2024. I have notified Tung Walker and [email or web address] by email of this patient's participation in the study with the following: Date/Time of Collection: 07/18/2024 IRB#: [id number] (NEX PixelPin) Patient Name: Michael Dwyer Patient ID: [id number] Visit #: Baseline We discussed the recommendation of establishing care with a local oncologist to manage medications, side effects, and disease closer to home. Mr. 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 08/12/2024 10:00 AM CDT Infusion Department of Oncology in [place], [place] [address] [place] [phone] Casimiro Chavez M.D., Ph.D. Malignant Neoplasm Of Bladder (HCC) (Primary Dx) 08/10/2024 Orders Only Department of Oncology in [place], [place] [address] [place] [phone] Tung Walker Malignant Neoplasm Of Bladder (HCC) (Primary Dx); Secondary Malignant Neoplasm Lymph Node (HCC) 08/09/2024 Clinical Communication Pharmacy Prior Auth RO [phone] Mague Aleman Rx Approval (Hydroxyzine HCL 25 mg) 08/05/2024 3:30 PM CDT Infusion Department of Oncology in [place], [place] [address] [place] [phone] Casimiro Chavez M.D., Ph.D. Malignant Neoplasm Of Bladder (HCC) (Primary Dx) 08/05/2024 2:40 PM CDT Education Department of Oncology in [place], [place] [address] [place] [phone] Casimiro Chavez M.D., Ph.D. Soha Huggins P.A.-C. Malignant Neoplasm Of Bladder (HCC) 08/05/2024 1:20 PM CDT Office Visit Department of Oncology in [address] [phone] Soha Huggins P.A.-C. Secondary Malignant Neoplasm Lymph Node (HCC) (Primary Dx); Malignant Neoplasm Of Bladder (HCC) 08/05/2024 Orders Only Department of Oncology in [address] [phone] Tung Walker Malignant Neoplasm Of Bladder (HCC) (Primary Dx) 08/05/2024 Clinical Communication Department of Oncology in [address] [phone] Casimiro Chavez M.D., Ph.D. Order Request 08/04/2024 4:15 PM CDT Clinical Communication Virtual Review in [address] [phone] Pre-visit Intake 08/02/2024 Clinical Communication Department of Oncology in [address] [phone] Casimiro Chavez M.D., Ph.D. Appt Request; Abstract 07/29/2024 Orders Only Department of Oncology in [address] [phone] Casimiro Chavez M.D., Ph.D. Malignant Neoplasm Of Bladder (HCC) (Primary Dx) 07/27/2024 Orders Only Department of Oncology in [address] [phone] Tung Walker Malignant Neoplasm Of Bladder (HCC) (Primary Dx) 07/21/2024 CPAP Download Remote Patient Monitoring [facility] [address] [address] [place] [address] [facility] 07/20/2024 10:00 AM CDT Admin Visit Department of Oncology in [address] [address] 07/20/2024 Orders Only Department of Oncology in [place], [place] [address] [place] [phone] Casimiro Chavez M.D., Ph.D. Malignant Neoplasm Of Bladder (HCC) (Primary Dx) 07/19/2024 Clinical Communication Department of Oncology in [place], [place] [address] [place] [phone] Casimiro Chavez M.D., Ph.D. Lab Question (Canceling [facility], alternate testing available. ) 07/19/2024 Clinical Communication Department of Oncology in [place], [place] [address] [place] [phone] Casimiro Chavez M.D., Ph.D. 07/18/2024 1:20 PM CDT Comprehensive Visit Department of Oncology in [place], [place] [address] [place] [phone] Casimiro Chavez M.D., Ph.D. Malignant Neoplasm Of Bladder (HCC) (Primary Dx); Secondary Malignant Neoplasm Lymph Node (HCC); Personal History Of Malignant Neoplasm Of Bladder; Urostomy Status Post (HCC) 07/18/2024 10:12 AM CDT - 07/18/2024 11:59 PM CDT Hospital Encounter Department of Laboratory Medicine and Pathology, [facility] in [place], [place] [address] [place] [phone] Carol Avila APRN, C.N.P., D.N.P., M.S. Secondary Malignant Neoplasm Lymph Node (HCC); Personal History Of Malignant Neoplasm Of Bladder; Urostomy Status Post (HCC); Morbid Obesity Body Mass Index 40.0-44.9 Adult (HCC) Discharge Disposition: Home or Self Care 07/18/2024 Orders Only Department of Oncology in [place], [place] [address] [place] [phone] Tung Walker Malignant Neoplasm Of Bladder (HCC) (Primary Dx) 07/12/2024 3:45 PM CDT Office Visit Department of Urology in [place], [place] [address] [place] [phone] betseyCarol APRN, C.N.PLiliana, D.N.P., M.S. Urostomy Status Post (HCC) (Primary Dx); Secondary Malignant Neoplasm Lymph Node (HCC); Personal History Of Malignant Neoplasm Of Bladder; Morbid Obesity Body Mass Index 40.0-44.9 Adult (HCC) 07/12/2024 1:15 PM CDT Procedure visit Department of Urology in [place], [place] [address] [place] [phone] Angelica Hameed P.A.-C., M.S. Cathy Mcmullen R.N., COCN Conduit Ileal (HCC) 07/12/2024 Orders Only Department of Oncology in [place], [place] [address] [place] [phone] Izabella Garza M.D. 07/11/2024 Documentation Department of Urology in [place], [place] [address] [place] [phone] betseyCarol APRN, C.N.PLiliana, Terry.N.PLiliana, M.S. 07/08/2024 8:39 AM CDT - 07/08/2024 11:46 AM CDT Hospital Encounter Department of Radiology, [facility], in [place], [place] [address] [place] [phone] Carol galloway APRN, C.N.PLiliana, D.N.P., M.S. Personal History Of Malignant Neoplasm Of Bladder; Localized Enlarged Lymph Nodes Discharge Disposition: Home or Self Care 07/08/2024 Results Follow-Up Department of Urology in [place], [place] [address] [place] [phone] Carol Avila APRN C.N.PLiliana, D.N.P., M.S. CT Lymph Node Biopsy, Cytology Fine Needle Aspiration (including core biopsies) 07/07/2024 12:15 PM CDT Clinical Communication Virtual Review in [place], [place] [address] [place] [phone] Pre-visit Intake 07/01/2024 Orders Only Department of Radiology, [facility], in [place], [place] [address] [place] [address] Harjeet Figueredo R.N. Malignant Neoplasm Of Bladder (HCC) (Primary Dx) 06/24/2024 3:30 PM CDT Office Visit Department of Urology in [place], [place] [address] [place] [address] Barby Ojeda APRN, C.N.P., M.S.N. [facility] APRN, C.N.P., D.N.P., M.S. Personal History Of Malignant Neoplasm Of Bladder (Primary Dx); Localized Enlarged Lymph Nodes; Urostomy Status Post (HCC) 06/24/2024 1:15 PM CDT Procedure visit Department of Urology in [place], [place] [address] [place] [address] Rocky Troncoso, SENA, P.A.-Mendy. Evelyn Hernández RBolivar., COCN Conduit Ileal (HCC) (Primary Dx); Malignant Neoplasm Of Bladder (HCC) 06/24/2024 9:33 AM CDT - 06/24/2024 11:59 PM CDT Hospital Encounter Department of Radiology, [facility], in [place], [place] [address] [place] [address] Barby Ojeda APRN, C.NChase., M.S.N. Malignant Neoplasm Of Bladder (HCC) Discharge Disposition: Home or Self Care 06/24/2024 7:45 AM CDT Lab Department of Urology in [place], [place] [address] [place] [address] Barby Ojeda APRN, C.N.P., M.S.N. Monika Peña R.N. Malignant Neoplasm Of Bladder (HCC) 06/24/2024 6:41 AM CDT - 06/24/2024 9:32 AM CDT Hospital Encounter Department of Laboratory Medicine and Pathology, [facility], in [place], [place] [address] [place] [phone] Barby Ojeda APRN, C.N.P., M.S.N. Malignant Neoplasm Of Bladder (HCC) Discharge Disposition: Home or Self Care 06/24/2024 Results Follow-Up Department of Urology in [place], [place] [address] [place] [phone] Carol Avila APRN C.N.PLiliana, D.N.P., M.S. CT Urogram without and with IV Contrast 06/21/2024 11:15 AM CDT Clinical Communication Virtual Review in [place], [place] [address] [place] [phone] Pre-visit Intake 06/20/2024 CPAP Download Remote Patient Monitoring [facility] [address] [place] [address] [facility], MD Carlos from Last 3 Months Immunizations Immunization Administration Dates Next Due SARS-COV-2 (COVID-19) - PFIZ ER (Discontinued)(12 years or older) 01/04/2021,06/16/2020,05/26/2020 Family History Medical History Relation Name Comments Coronary artery disease Brother Freddy Dwyer Sten ts, 2021 Hyperlipidemia Brother Freddy Dwyer Hypertension Brother Freddy Dwyer Kidney disease Brother Freddy Dwyer Prostate cancer Brother Freddy Dwyer Twin brother stroke and heart attack age 72 Stroke Brother Freddy Dwyer Prostate cancer Father Sedrick Dwyer Mother early 50s of stomach cancer Other cancer Mother Corrine Dwyer unknown cancer, stomach area, liver? Hyperlipidemia Sister Lyndsay Eliel Hypertension Sister Lyndsay Eliel Other cancer Sister Lyndsay Eliel 2021, hear t attack Prostate cancer Sister Lyndsay Eliel in 2022 of aneurism Relation Name Status Comments Brother Freddy Dwyer Father Sedrick Dwyer Mother Corrine Dwyer Sister Lyndsay Eliel Social History Tobacco Use Types Packs/Day Years Used Date Smoking Tobacco: Former Cigarettes 1 20 0 04/22/1959 - 04/22/1989 Passive Smoke Exposure: Past Smokeless Tobacco: Never Alcohol Use Standard Drinks/Week Comments Yes 6 (1 standard drink = 0.6 oz pur e alcohol) Light social drinker [facility] Utilities Answer Date Recorded In the past 12 months has th e [employer], oil, or water [employer] threatened to shut off services in your [...] any clubs o r organizations such as spiritism groups, unions, fraternal or athletic groups, or [...] care, and heating? Not very hard 09/05/2022 [place] [employer] - Occupational Stress [...] your living situation today? I have a [facility] place to live 07/05/2024 Education Answer Date Recorded What is the highest level of school you have completed or the highest degree you have received? Bachelor's degree (e.g., BA, AB, BS) 05/16/2019 Sex and Gender Information Value Date Recorded Sex Assigned at Male 01/13/2020 10:41 AM CDT Legal Sex Male 3:35 PM FLOATMAN Gender Identity Male 04/11/2018 8:29 AM FLOATMAN Sexual Orientation Straight 04/11/2018 8: 29 AM FLOATMAN Last Filed Vital Signs Vital Sign Reading Time Taken Comments Blood Pressure 154/54 08/12/2024 9:57 AM CDT Pulse 54 08/12/2024 9:57 AM CDT Temperature 36.6 C (97.9 F) 08/12/2024 9:57 AM CDT Respiratory Rate 16 07/18/2024 1:05 PM CDT Oxygen Saturation 96% 08/05/2024 1:09 PM CDT Inhaled Oxygen Concentration - - Weight 130 kg (287 lb 11.2 oz) 08/12/2024 9:57 A M CDT Height 183.1 cm (6' 0.09) 08/05/2024 1:09 PM CD T Body Mass Index 38.93 08/05/2024 1:09 PM CDT Plan of Treatment Upcoming Encounters Date Type Department Care Team (Latest Contact Info) Description 10/10/2024 2:30 PM CDT Clinical Communication Virtual Review in [place], [place] [address] [place] [address] 10/11/2024 8:10 AM CDT Appointment Department of Laboratory Medicine and Pathology, [facility] in [place], [place] [address] [place] [phone] Shoa Huggins, P.A.-C. [address] [place] [phone] 10/11/2024 9:00 AM CDT Appointment Department of Radiology, [facility], in [place], [place] [address] [place] [phone] Soha Huggins, P.A.-CLiliana [address] [place] [phone] 10/11/2024 3:40 PM CDT Office Visit Department of Oncology in [address] [phone] Casimiro Chavez M.D., Ph.D. [address] [place] [phone] Health Maintenance Due Date Last Done Comments Depression Screening (Annual PHQ-2) 04/13/2024 COVID-19 Vaccine (7 - Pfizer risk season) 2024 12/31/2023, 12/26/2021, 07/09/2021, Additional history exists Office Visit for Blood Pressure Check / Re-check 11/12/2024 08/12/2024 Creatinine Level (Kidney Function Test) 08/12/2025 08/12/2024, 08/05/2024, 07/18/2024, Additional history exists Potassium Level 08/12/2025 08/12/2024, 07/13, 07/18/2024, Additional history exists Sodium Level 08/12/2025 08/12/2024, 07/13, 07/18/2024, Additional history exists DTaP,Tdap,and Td Vaccines (3 - Td or Tdap) 04/28/2032 04/28/2022, 12/31/2012, 04/25/2004, Additional history exists Pneumococcal vaccine (50+ years) Completed 12/16/2017, 10/23/2014, 12/31/2012, Additional history exists Zoster Vaccines Completed 09/04/2021, 08/11, 12/16/2017, Additional history exists RSV vaccine - (32-36 weeks) or 60+ years Completed 12/19/2022 Influenza Vaccine Completed 12/31/2023, , 12/26/2021, Additional history exists Lung Cancer Screening Discontinued 06/24/2024 , 06/24/2023, 06/09/2022, Additional history exists Fall Risk Screen (Annual) Completed 07/08/2024 HPV Vaccines Aged Out No longer eligi ble based on patient's age to complete this topic IPV Vaccines Aged Out No longer eligi ble based on patient's age to complete this topic Medical Devices Implanted Type Area Implementation Engineer Device Identifier Shelf Expiration Date Model / Serial / Lot Clp Hrzn Ti 6 Satya Horvath Lorne - [id number] Implanted:Qty: 1 on 10/13/2022 by Tam Stoddard M.D. at [facility] Hardware e.g. pins/screws/ rods [employer] [id number] / / Clp Hrzn Ti 6 Satya Horvath Lorne - [id number] Implanted:Qty: 1 on 10/13/2022 by Tam Stoddard M.D. at [facility] Hardware e.g. pins/screws/ rods [employer] [id number] / / Clp Hrzn Ti 6 Clp Sm Red - [id number] Implanted:Qty: 1 on 10/13/2022 by Tam Stoddard M.D. at [facility] Hardware e.g. pins/screws/ rods [employer]ck [employer] [id number] / / Clp Hrzn Ti 6 Clp Sm Red - [id number] Implanted:Qty: 1 on 10/13/2022 by Tam Stoddard M.D. at [facility] Hardware e.g. pins/screws/ rods [employer]ck [employer] / / Stent Uret Single J 7 X 90cm - [id number] Implanted:Qty: 1 on 05/29/2011 Ureteral Stent Other/Legacy - See Implant Description Description:Device Manufactu rer - [employer]. Device Status Text - [id number]. Explanted Type Area Implementation Engineer Device Identifier Shelf Expiration Date Model / Serial / Lot Filter [place] Cava- Jugular - [id number] Implanted:Qty: 1 on 06/23/2011 Explanted:2011 (Quantity not on file) Vascular or IVC Filter Right: Chest C.R.Bard Description:Device Manufactu rer - Bard Access. Device Status Text - [id number]. Procedures Procedure Name Priority Date/Time Associated Diagnosis Comments COMPREHENSIVE METABOLIC PANEL, S/P Routine 08/12/2024 8:07 AM CDT Malignant Neoplasm Of Bladder (HCC) CBC CHEMO - NO ALERTS Routine 08/12/2024 8:07 AM CDT Malignant Neoplasm Of Bladder (HCC) [facility] ORDER, B Routine 5 5:54 PM CDT Malignant Neoplasm Of Bladder (HCC) [facility] ORDER, U Routine 5 11:02 AM CDT Malignant Neoplasm Of Bladder (HCC) DC T4 FREE Routine 08/05/2024 10:52 AM CDT THYROPEROXIDASE (TPO) ABS, S Routine 08/05/2024 10:52 AM CDT [facility] ORDER, B Routine 10:52 AM CDT Malignant Neoplasm Of Bladder (HCC) [facility] ORDER, B Routine 10:52 AM CDT Malignant Neoplasm Of Bladder (HCC) THYROID FUNCTION CASCADE, S Routine 08/05/2024 10:52 AM CDT Malignant Neoplasm Of Bladder (HCC) COMPREHENSIVE METABOLIC PANEL, S/P Routine 08/05/2024 10:52 AM CDT Malignant Neoplasm Of Bladder (HCC) CBC WITH DIFFERENTIAL, B Routine 08/05/2024 10:52 AM CDT Malignant Neoplasm Of Bladder (HCC) EXT TEMPUS XF Routine 07/29/2024 5:40 PM CDT Malignant Neoplasm Of Bladder (HCC) Personal History Of Malignant Neoplasm Of Bladder [facility] RES[facility] ORDER, B Routine 2:37 PM CDT Malignant Neoplasm Of Bladder (HCC) [facility] XT NORMAL, B Routine 07/18/2024 2:37 PM CDT Malignant Neoplasm Of Bladder (HCC) Personal History Of Malignant Neoplasm Of Bladder COMPREHENSIVE METABOLIC PANEL, S/P Routine 07/18/2024 10:37 AM CDT Secondary Malignant Neoplasm Lymph Node (HCC) Personal History Of Malignant Neoplasm Of Bladder Urostomy Status Post (HCC) Morbid Obesity Body Mass Index 40.0-44.9 Adult (HCC) CBC WITHOUT DIFFERENTIAL, B Routine 07/18/2024 10:37 AM CDT Secondary Malignant Neoplasm Lymph Node (HCC) Personal History Of Malignant Neoplasm Of Bladder Urostomy Status Post (HCC) Morbid Obesity Body Mass Index 40.0-44.9 Adult (HCC) CT LYMPH NODE BIOPSY RAD - Routine (most inpatients and all outpatients) 07/08/2024 10:48 AM CDT Personal History Of Malignant Neoplasm Of Bladder Localized Enlarged Lymph Nodes CYTOLOGY FINE NEEDLE ASPIRATION (INCLUDES CORE BIOPSIES Timed 07/08/2024 9:31 AM CDT Personal History Of Malignant Neoplasm Of Bladder Localized Enlarged Lymph Nodes PROTHROMBIN TIME (PT), P Routine 07/08/2024 7:36 AM CDT Malignant Neoplasm Of Bladder (HCC) CT UROGRAM WITHOUT AND WITH IV CONTRAST RAD - Routine (most inpatients and all outpatients) 06/24/2024 11:37 AM CDT Malignant Neoplasm Of Bladder (HCC) CT CHEST WITH IV CONTRAST RAD - Routine (most inpatients and all outpatients) 06/24/2024 11:37 AM CDT Malignant Neoplasm Of Bladder (HCC) CYTOLOGY NON-SENIOR DIRECTOR INSIGHT Routine 06/24/2024 8:07 AM CDT Malignant Neoplasm Of Bladder (HCC) VITAMIN B12 ASSAY, S Routine 06/24/2024 7:05 AM CDT Malignant Neoplasm Of Bladder (HCC) CBC WITH DIFFERENTIAL, B Routine 06/24/2024 7:05 AM CDT Malignant Neoplasm Of Bladder (HCC) BASIC METABOLIC PANEL, S/P Routine 06/24/2024 7:05 AM CDT Malignant Neoplasm Of Bladder (HCC) from Last 3 Months Results * (ABNORMAL) CBC, Chemotherapy, No Alerts (08/12/2024 8:07 AM CDT) Hemoglobin 13.0(L) 13.2 - 16.6 g/dL 08/12/2024 8:20 AM CDT [facility] Platelet Count 174 135 - 317 x10(9)/L 08/12/2024 8:20 AM CDT [facility] Leukocytes 8.3 3.4 - 9.6 x10(9)/L 08/12/2024 8:20 AM CDT [facility] Neutrophils 5.11 1.56 - 6.45 x10(9)/L 08/12/2024 8:20 AM CDT [facility] Blood (Blood, Venous) 08/12/2024 8:07 AM CDT 08/12/2024 8:18 AM CDT us Casimiro Chavez M.D., Ph.D. LAB BLOOD ADD-ON Final Result [facility] [place] [address] [place] [address], [facility] METH [facility] [address] [place] [address] [facility] [address] [place] [address] * (ABNORMAL) Comprehensive Metabolic Panel (08/12/2024 8:07 AM CDT) Only the most recent of3 resultswithin the time period is included. [facility] Potassium, S 4.0 3.6 - 5.2 mmol/L 08/12/2024 9:13 AM CDT DTL Sodium, S 140 135 - 145 mmol/L 08/12/2024 9:13 AM CDT DTL Chloride, S 106 98 - 107 mmol/L 08/12/2024 9:13 AM CDT DTL Bicarbonate, S 19(L) 22 - 29 mmol/L 08/12/2024 9:13 AM CDT DTL Anion Gap 15 7 - 15 08/12/2024 9:13 AM CDT DTL BUN (Blood Urea Nitrogen), S 23 8 - 24 mg/dL 08/12/2024 9:13 AM CDT DTL Creatinine 1.98(H) 0.74 - 1.35 mg/dL 08/12/2024 9:13 AM CDT DTL Estimated GFR (eGFR) 33(L) >=60 mL/min/BS A 08/12/2024 9:13 AM CDT DTL Comment: Estimated GFR calculated using the 2020 CKD_EPI creatinine equation. Calcium, Total, S 8.8 8.8 - 10.2 mg/dL 08/12/2024 9:13 AM CDT DTL Glucose, S 102 70 - 140 mg/dL 08/12/2024 9:13 AM CDT DTL Protein, Total, S 6.2(L) 6.3 - 7.9 g/dL 08/12/2024 9:13 AM CDT DTL Albumin, S 3.6 3.5 - 5.0 g/dL 08/12/2024 9:13 AM CDT DTL Aspartate Aminotransferase (AST), S 21 8 - 48 U/L 08/12/2024 9:13 AM CDT DTL Alkaline Phosphatase, S 121 40 - 129 U/L 08/12/2024 9:13 AM CDT DTL Alanine Aminotransferase (ALT), S 18 7 - 55 U/L 08/12/2024 9:13 AM CDT DTL Bilirubin, Total, S 0.6 0.0 - 1.2 mg/dL 08/12/2024 9:13 AM CDT DTL Blood (Blood, Venous) 08/12/2024 8:07 AM CDT 08/12/2024 8:52 AM CDT us Casimiro Chavez M.D., Ph.D. LAB BLOOD ADD-ON Final Result Performing Organization Address City/[facility]/ZIP Co de Phone Number [address] [address], [facility] [address] [address] * [facility] Research, Blood (08/05/2024 5:54 PM CDT) Only the most recent of4 resultswithin the time period is included. Number of Specimens 1 08/05/2024 5:54 PM CDT HSS Blood (Blood, Venous) 08/05/2024 5:54 PM CDT 08/05/2024 5:54 PM CDT us Casimiro Chavez M.D., Ph.D. LAB RESEARCH NO RESULT ROUTING Final Result [facility] [place] [address] [place] [address], [facility] [address] [place] [address] * Misc Research, Urine (08/05/2024 11:02 AM CDT) Number of Specimens 1 08/05/2024 11:02 AM CDT HS Urine (Urine, Midstream) 08/05/2024 11:02 AM CDT 08/05/2024 11:02 AM CDT Casimiro Chavez M.D., Ph.D. LAB RESEARCH NO RESULT ROUTING Final Result Performing Organization Address [facility] Co de Phone Number [facility] [place] [address] [place], [place] [id number] [place] [address] 200 [place] [address] * T4 (Thyroxine), Free, Serum (08/05/2024 10:52 AM CDT) T4 (Thyroxine), Free, S 0.9 0.9 - 1.7 ng/dL 08/05/2024 12:53 PM CDT DTL Blood 08/05/2024 10:5 2 AM CDT 08/05/2024 11:26 AM CDT Casimiro Chavez M.D., Ph.D. LAB BLOOD ADD-ON Final Result Performing Organization Address City/[facility]/ZIP Co de Phone Number [facility] [place] [address] [place] [address], [facility] [address] [place] [address] * (ABNORMAL) Thyroid Function [place] (08/05/2024 10:52 AM CDT) TSH, Sensitive 7.6(H) 0.3 - 4.2 mIU/L 08/05/2024 12:33 PM CDT DTL Blood (Blood, Venous) 08/05/2024 10:52 AM CDT 08/05/2024 11:26 AM CDT us Casimiro Chavez M.D., Ph.D. LAB BLOOD ADD-ON Final Result Performing Organization Address [facility] Co de Phone Number [facility] [place] [address] [place] [address] * Thyroperoxidase (TPO) Antibodies (08/05/2024 10:52 AM CDT) [facility] Thyroperoxidase Ab, S <15.0 <34.0 IU/mL 08/05/2024 12:53 PM CDT DTL Blood 08/05/2024 10:5 2 AM CDT 08/05/2024 11:26 AM CDT Casimiro Chavez M.D., Ph.D. LAB BLOOD ADD-ON Final Result Performing Organization Address [facility] Co de Phone Number [facility] [place] [address] [place] [address] * CBC with Differential, Blood (08/05/2024 10:52 AM CDT) Only the most recent of2 resultswithin the time period is included. [facility] Hemoglobin 13.3 13.2 - 16.6 g/dL 08/05/2024 11:35 AM CDT DTL Hematocrit 41.5 38.3 - 48.6 % 08/05/2024 11:35 AM CDT DTL Erythrocytes 4.42 4.35 - 5.65 x10(12)/L 08/05/2024 11:35 AM CDT DTL MCV 93.9 78.2 - 97.9 fL 08/05/2024 11:35 AM CDT DTL RBC Distrib Width 13.6 11.8 - 14.5 % 08/05/2024 11:35 AM CDT DTL Platelet Count 171 135 - 317 x10(9)/L 08/05/2024 11:35 AM CDT DTL Leukocytes 8.8 3.4 - 9.6 x10(9)/L 08/05/2024 11:35 AM CDT DTL Neutrophils 6.07 1.56 - 6.45 x10(9)/L 08/05/2024 11:35 AM CDT DHPM Lymphocytes 1.71 0.95 - 3.07 x10(9)/L 08/05/2024 11:35 AM CDT DTL Monocytes 0.80 0.26 - 0.81 x10(9)/L 08/05/2024 11:35 AM CDT DTL Eosinophils 0.21 0.03 - 0.48 x10(9)/L 08/05/2024 11:35 AM CDT DTL Basophils 0.05 0.01 - 0.08 x10(9)/L 08/05/2024 11:35 AM CDT DTL Blood (Blood, Venous) 08/05/2024 10:52 AM CDT 08/05/2024 11:16 AM CDT Casimiro Chavez M.D., Ph.D. LAB BLOOD ADD-ON Final Result [facility] [place] [address] [place] [address], [facility] DTL [facility] [address] [place] [address] [facility] [address] [place] [address] * EXT [facility] (07/29/2024 5:40 PM CDT) EXT Reason for Study To identify mutations relevant to patient's cancer. 07/29/2024 5:40 PM CDT [facility] EXT Genetic Diseases Assessed Cancer 07/29/2024 5:40 PM CDT [facility] EXT Description of Ranges of DNA Sequences Examined 523 gene liquid biopsy 07/29/2024 5:40 PM CDT [facility] EXT Overall Interpretation positive 07/29/2024 5:40 PM CDT [facility] EXT [facility] [id number] 07/29/2024 5:40 PM CDT [facility] Comment:[facility] link EXT Low Coverage Regions ABRAXAS1, DNMT1, NOTCH1, NOTCH2, RAD51C, RHOA, RXRA, SDHAF2, TGFBR1, TP53, TP63 07/29/2024 5:40 PM CDT [facility] EXT TMB 5.5 m/MB 07/29/2024 5:40 PM CDT [facility] Microsatellite Instability Note MSI-High not detected 07/29/2024 5:40 PM CDT [facility] Treatment Implications Note No reportable treatment options found. 07/29/2024 5:40 PM CDT [facility] Blood 07/20/2024 11: 51 PM CDT Narrative This result has genomic variants that were not included in this document. Casimiro Chavez M.D., Ph.D. LAB GENETIC TESTING Fin al Result Performing Organization Address City/State/[facility] Co de Phone Number [facility] [address] [facility], [address] [place] [address] [facility] [address] [place] [address] * Aura [facility] xT, Normal - Sent Out Lab (07/18/2024 2:37 PM CDT) [facility] xT Normal, B Collected, Sent to Reference Lab DEFAULT 07/19/2024 10:47 AM CDT [facility] Blood (Blood, Venous) 07/18/2024 2:37 PM CDT 07/19/2024 10:47 AM CDT Narrative [facility] REFERRALS - 07/19/2024 10:47 AM CDT Specimen Information: Specimen ID: [id number] Specimen Type: Blood Specimen Collection Start Date: 07/18/2024 2:37 PM Specimen Received Date: 07/19/2024 10:47 AM Specimen ID: [id number] Specimen Type: Blood Specimen Collection Start Date: 07/18/2024 2:37 PM Specimen Received Date: 07/19/2024 10:47 AM Casimiro Chavez M.D., Ph.D. LAB GENETIC TESTING Fin al Result Performing Organization Address [facility] de Phone Number [facility] REFERRALS [address] [place] [address], [facility] [address] [place] [address] * (ABNORMAL) CBC without Differential (07/18/2024 10:37 AM CDT) Pathologist [facility] Hemoglobin 12.4(L) 13.2 - 16.6 g/dL 07/18/2024 12:09 PM CDT DHPM Hematocrit 38.3 38.3 - 48.6 % 07/18/2024 12:09 PM CDT DHPM Erythrocytes 4.08(L) 4.35 - 5.65 x10(12)/L 07/18/2024 12:09 PM CDT DHPM MCV 93.9 78.2 - 97.9 fL 07/18/2024 12:09 PM CDT DHPM RBC Distrib Width 14.0 11.8 - 14.5 % 07/18/2024 12:09 PM CDT DHPM Platelet Count 171 135 - 317 x10(9)/L 07/18/2024 12:09 PM CDT DHPM Leukocytes 8.0 3.4 - 9.6 x10(9)/L 07/18/2024 12:09 PM CDT DHPM Blood (Blood, Venous) 07/18/2024 10:37 AM CDT 07/18/2024 11:05 AM CDT Carol Avila APRN, C.N.P., D.N.P., M.S. LAB B LOOD ADD-ON Final Result Performing Organization Address City/[facility]/ZIP Co de Phone Number [facility] [place] [address] [place] [address], [facility] [address] [place] [address] * CT Lymph Node Biopsy (07/08/2024 10:48 AM CDT) Anatomical Region Laterality Modality Body, Abdominal RST LOS, Mus culoskeletal ARZ LOS, Neuroradiology ARZ LOS, Vascular Interventional ARZ LOS, Procedure FLA LOS, Abdominal FLA LOS, Procedural, Procedural NWWI LOS Computed Tomography, C omputed Tomography Impressions 07/08/2024 11:[address]-guided lymph node biopsy NR Narrative 07/08/2024 11:50 AM CDT EXAM: CT LYMPH NODE BIOPSY PRE-PROCEDURE: Patient seen, evaluated, history reviewed, and approved for sedation. Airway, heart, and lung exam satisfactory for sedation. Discussed risks, benefits, alternatives for procedure, and/or sedation. The roles and responsibilities of care team members, residents, and fellows were discussed. Patient understands information and questions answered. Informed consent obtained from the patient. Immediately prior to starting the procedure, in the presence of the assisting personnel, a procedural pause was conducted to verify correct patient identity and verification of procedure to be performed, and as applicable, correct side and site, correct patient position, availability of implants, special equipment, or special requirements, and all image and specimen identification data. INTRAPROCEDURE: Moderate sedation was administered by sedation nurse under my supervision. The patient was continuously monitored with real time oxygen saturation, heart rate, ECG rhythm strip and blood pressure throughout administration of the sedation and performance of the procedure. The total intra-procedural sedation time was: 15 minutes. TECHNIQUE: Sterile;1% lidocaine for local anesthesia and CT Guidance. TARGET LOCATION: Left retroperitoneal lymph node, lying anterior to the distended left renal pelvis TARGET LESION SIZE: 2.9 cm BIOPSY INSTRUMENT: 17/18 gauge coaxial device NUMBER OF SAMPLES OBTAINED: 5 COMPLICATION: None BLOOD LOSS: None. PATIENT INSTRUCTIONS: Patient may be dismissed from the radiology department when dismissal criteria met. POST-PROCEDURE DIAGNOSIS: Abdominal lymphadenopathy Procedure Note Michael Dai M.D. - 07/08/2024 EXAM: CT LYMPH NODE BIOPSY PRE-PROCEDURE: Patient seen, evaluated, history reviewed, and approved for sedation.Airway, heart, and lung exam satisfactory for sedation. Discussed risks,benefits, alternatives for procedure, and/or sedation. The roles andresponsibilities of care team members, residents, and fellows were discussed. Patient understands information andquestions answered. Informed consent obtained from the patient.Immediately prior to starting the procedure, in the presence of theassisting personnel, a procedural pause was conducted to verify correct patient identity and verification of procedureto be performed, and as applicable, correct side and site, correct patientposition, availability of implants, special equipment, or specialrequirements, and all image and specimen identification data. INTRAPROCEDURE: Moderate sedation was administered by sedation nurse undermy supervision. The patient was continuously monitored with real timeoxygen saturation, heart rate, ECG rhythm strip and blood pressurethroughout administration of the sedation and performance of the procedure. The total intra-procedural sedation timewas: 15 minutes. TECHNIQUE: Sterile;1% lidocaine for local anesthesia and CT Guidance. TARGET LOCATION: Left retroperitoneal lymph node, lying anterior to thedistended left renal pelvis TARGET LESION SIZE: 2.9 cm BIOPSY INSTRUMENT: 17/18 gauge coaxial device NUMBER OF SAMPLES OBTAINED: 5 COMPLICATION: None BLOOD LOSS: None. PATIENT INSTRUCTIONS: Patient may be dismissed from the radiologydepartment when dismissal criteria met. POST-PROCEDURE DIAGNOSIS: Abdominal lymphadenopathy IMPRESSION: CT-guided lymph node biopsy NR [facility] MAT PACKER, C.N.P., D.N.P., M.S. IMG C T PROCEDURES Final Result * (ABNORMAL) Cytology Fine Needle Aspiration (including core biopsies) (07/08/2024 9:31 AM CDT) (A) 07/11/2024 1:40 PM CDT DTL Participated in the Interpretation Rubina Smallwood M.D., Ph.D. -Pathology Resident(A) 07/11/2024 1:40 PM CDT DTL Report electronically signed by Jacquelin Emerson M.D. I verify that I have examined all relevant slides/materi als for the specimen(s) and rendered or confirmed the diagnosis. (A) 07/11/2024 1:40 PM CDT DTL Gross Description Received 5 alcohol-fixed smears and tissue. Additionally, received in formalin labeled with the patient's name, medical record number and lymph node, left, abdominal are five paletan soft tissue fragments, measuring 0.1-0.4 cm in length. The specimens are submitted en toto in cassette A1. Grossed by LMB. (A) 07/11/2024 1:40 PM CDT DTL Source A. Lymph node, Left abdominal, fine needle aspiration(A) 07/11/2024 1:40 PM CDT DTL Interpretation A. Lymph node, Left abdominal, fine needle aspiration (smears/tissu e): Positive for malignancy. 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 Immunostains performed on block A1 show the neoplastic cells are positive KRT7, KRT20, p40, p63, GATA3, and uroplakin II, while negative for PAX8 and TTF1. Digital imaging was used in the diagnostic assessment of this case. (A) 07/11/2024 1:40 PM CDT DTL Tissue (Lymph Node) 07/08/2024 9:31 AM CDT [facility] Conner JALEESA, C.N.P., D.N.P., M.S. LAB S URG PATH ORDERABLES Final Result [facility] [place] [address] [place] [address], [facility] DTL [address] [facility] [address] [place] [address] * Prothrombin Time (PT) (07/08/2024 7:36 AM CDT) Prothrombin Time, P 12.3 9.4 - 12.5 sec 07/08/2024 9:06 AM CDT DTL INR 1.1 0.9 - 1.1 07/08/2024 9:06 AM CDT DTL Comment: ----ADDITIONAL INFORMATION---- Standard intensity warfarin therapeutic range: 2.0 to 3.0 High intensity warfarin therapeutic range: 2.5 to 3.5 Blood (Blood, Venous) 07/08/2024 7:36 AM CDT 07/08/2024 8:45 AM CDT us Smitha Escobar APRN, C.N.P. LAB BLOOD ADD-ON Fin al Result [facility] [place] [address] [place] [address], [facility] DTL [facility] [address] [place] [address] * CT Urogram without and with IV Contrast (06/24/2024 11:37 AM CDT) Anatomical Region Laterality Modality Abdomen, Pelvis, Abdominal R ST LOS, Abdominal ARZ LOS, Abdominal FLA LOS N/A Computed Tomograp hy, Computed Tomography 06/24/2024 11:2 7 AM CDT Impressions 06/24/2024 12:29 PM CDT 1. Progression of marked changes of the left kidney and ureter which suggest an inflammatory or infectious process however remain suspicious for an underlying neoplasm, particularly given upper retroperitoneal lymphadenopathy. 2. Slight progression of mild right hydronephrosis with slight narrowing of the distal right ureter Narrative 06/24/2024 12:29 PM CDT EXAM: CT UROGRAM WITHOUT AND WITH IV CONTRAST COMPARISON: 06/24/2023, 06/09/2022 and multiple prior CTU exams. FINDINGS: FINDINGS: Long-standing moderate left hydronephrosis with progressive marked diffuse urothelial thickening, enhancement and periureteral inflammatory changes which continue to worsen over multiple prior exams dating back to 2017. There is increasing nodular enhancement of the distal left ureter extending 5 cm proximal to the anastomosis. There is new delayed and striated left nephrogram with poor excretory function and lack of contrast opacification of the collecting system and ureter despite delayed imaging. Again seen are large mobile filling defects within the left renal collecting system. Multiple enlarged upper left retroperitoneal lymph nodes, the largest measuring 2.8 x 2.5 cm. Mild right hydronephrosis is slightly progressed from the most recent exam with unchanged moderate narrowing of the distal right ureter at the anastomosis. No significant urothelial thickening or enhancement on the right. Negative liver, spleen, left adrenal gland. Small cystic lesion in the pancreatic tail, almost certainly an IPMN. Cholelithiasis. Advanced atherosclerotic calcifications. Large ventral abdominal wall hernias, the largest on the right containing multiple loops of unobstructed small bowel. A left lower quadrant abdominal wall hernia contains a loop of sigmoid colon. No suspicious skeletal lesions. Procedure Note Maggie Aleman M.D. - 06/24/2024 EXAM: CT UROGRAM WITHOUT AND WITH IV CONTRAST COMPARISON: 06/24/2023, 06/09/2022 and multiple prior CTU exams. FINDINGS: FINDINGS: Long-standing moderate left hydronephrosis withprogressive marked diffuse urothelial thickening, enhancement andperiureteral inflammatory changes which continue to worsen over multipleprior exams dating back to 2017. There is increasing nodular enhancement of the distal left ureter extending 5 cmproximal to the anastomosis. There is new delayed and striated leftnephrogram with poor excretory function and lack of contrast opacificationof the collecting system and ureter despite delayed imaging. Again seen are large mobile filling defectswithin the left renal collecting system. Multiple enlarged upper leftretroperitoneal lymph nodes, the largest measuring 2.8 x 2.5 cm. Mild right hydronephrosis is slightly progressed from the most recent examwith unchanged moderate narrowing of the distal right ureter at theanastomosis. No significant urothelial thickening or enhancement on theright. Negative liver, spleen, left adrenal gland. Small cystic lesion in thepancreatic tail, almost certainly an IPMN. Cholelithiasis. Advancedatherosclerotic calcifications. Large ventral abdominal wall hernias, thelargest on the right containing multiple loops of unobstructed small bowel. A left lower quadrant abdominal wallhernia contains a loop of sigmoid colon. No suspicious skeletal lesions. IMPRESSION: 1. Progression of marked changes of the left kidney and ureter whichsuggest an inflammatory or infectious process however remain suspiciousfor an underlying neoplasm, particularly given upper retroperitoneallymphadenopathy. 2. Slight progression of mild right hydronephrosis with slight narrowingof the distal right ureter us Barby Ojeda APRN, C.N.P., M.S.N. IMG CT P ROCEDURES Final Result * CT Chest with IV Contrast (06/24/2024 11:37 AM CDT) Anatomical Region Laterality Modality Chest, Thoracic RST LOS, Tho racic ARZ LOS, Thoracic ARZ LOS, Thoracic FLA LOS N/A Computed Tomography, Compute d Tomography 06/24/2024 11:1 3 AM CDT Impressions 06/24/2024 12:[address] chest. Narrative 06/24/2024 12:42 PM CDT EXAM: CT CHEST WITH IV CONTRAST COMPARISON: 06/24/2023, 06/09/2022 FINDINGS: Lungs and Airways: There are no indeterminate lung nodules. Bilateral solid lung nodules measuring 4 mm or less remain stable. Calcified lung nodules are consistent with granulomas. Pleural Space: No pleural fluid or thickening. Fat-containing right Bochdalek hernia. Cardiovascular: Left atrium is enlarged by visual estimate. No pericardial effusion. Severe coronary artery calcification. Mild mitral annulus calcification, moderate aortic valve leaflet calcification, and scattered atherosclerotic plaque in the aorta and proximal arch vessels. 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 This is associated with filling of venous collaterals in the right chest wall. Mediastinum and Safia: No mediastinal or hilar adenopathy. Chest Wall and Osseous Structures: No axillary lymphadenopathy. No aggressive bone lesions. Bridging syndesmophytes in the middle and lower thoracic spine. Lower neck: Left thyroidectomy. This examination was performed in conjunction with a CT of the abdomen and pelvis, which will be reported separately. Procedure Note Rocky Inman M.D. - 06/24/2024 EXAM: CT CHEST WITH IV CONTRAST COMPARISON: 06/24/2023, 06/09/2022 FINDINGS: Lungs and Airways: There are no indeterminate lung nodules. Bilateralsolid lung nodules measuring 4 mm or less remain stable. Calcified lungnodules are consistent with granulomas. Pleural Space: No pleural fluid or thickening. Fat-containing rightBochdalek hernia. Cardiovascular: Left atrium is enlarged by visual estimate. No pericardialeffusion. Severe coronary artery calcification. Mild mitral annuluscalcification, moderate aortic valve leaflet calcification, and scatteredatherosclerotic plaque in the aorta and proximal arch vessels. The right subclavian vein is severely stenosedbetween the right clavicle and right first rib. This is associated withfilling of venous collaterals in the right chest wall. Mediastinum and Safia: No mediastinal or hilar adenopathy. Chest Wall and Osseous Structures: No axillary lymphadenopathy. Noaggressive bone lesions. Bridging syndesmophytes in the middle and lowerthoracic spine. Lower neck: Left thyroidectomy. This examination was performed in conjunction with a CT of the abdomen andpelvis, which will be reported separately. IMPRESSION: Stable CT chest. Mendy Nunez APRN.N.Kat., M.S.N. IMG CT P ROCEDURES Final Result * (ABNORMAL) Cytology Non-SENIOR DIRECTOR INSIGHT (06/24/2024 8:07 AM CDT) (A) 06/28/2024 12:55 PM CDT DTL Report electronically signed by Mayo Bailey, M.Terry. I verify that I have examined all relevant slides/material s for the specimen(s) and rendered or confirmed the diagnosis. (A) 06/28/2024 12:55 PM CDT DTL Gross Description Received 15 cc of cloudy yellow fluid.(A) 06/28/2024 12:55 PM CDT DTL Collection Procedure stoma(A) 06/28/2024 12:55 PM CDT DTL Source A. Urine, Stoma, catheterized(A) 06/28/2024 12:55 PM CDT DTL Interpretation A. Urine, Stoma, catheterized (ThinPrep): Atypical urothelial cells. (A) 06/28/2024 12:55 PM CDT DTL Urine 06/24/2024 8:07 AM CDT 06/24/2024 8:32 AM CDT Mendy Nunez APRN.N.P., M.S.N. LAB SURG PATH ORDERABLES Final Result [facility] [place] [address] [place] [address], [facility] DT [address] [address] * Vitamin B12 Assay (06/24/2024 7:05 AM CDT) [facility] Vitamin B12 Assay, S 289 180 - 914 ng/L 06/24/2024 8:51 AM CDT DTL Comment: ----ADDITIONAL INFORMATION---- In patients being evaluated for vitamin B12 deficiency who have intrinsic factor blocking antibodies (IFBA), false elevations of B12 may occur due to IFBA interference thus potentially obscuring a physiological deficiency of B12. If observed B12 concentrations are discordant with clinical presentation, measurement of methylmalonic acid (MMA) should be considered. Blood (Blood, Venous) 06/24/2024 7:05 AM CDT 06/24/2024 7:46 AM CDT Barby Ojeda APRN C.N.P., M.S.N. LAB BLOO D ADD-ON Final Result [facility] [place] [address] [place] [address], [facility] [address] [place] [address] * (ABNORMAL) Basic Metabolic Panel (06/24/2024 7:05 AM CDT) [facility] Potassium, S 4.0 3.6 - 5.2 mmol/L 06/24/2024 8:03 AM CDT DTL Sodium, S 141 135 - 145 mmol/L 06/24/2024 8:03 AM CDT DTL Chloride, S 107 98 - 107 mmol/L 06/24/2024 8:03 AM CDT DTL Bicarbonate, S 21(L) 22 - 29 mmol/L 06/24/2024 8:03 AM CDT DTL Anion Gap 13 7 - 15 06/24/2024 8:03 AM CDT DTL BUN (Blood Urea Nitrogen), S 26(H) 8 - 24 mg/dL 06/24/2024 8:03 AM CDT DTL Creatinine 1.87(H) 0.74 - 1.35 mg/dL 06/24/2024 8:03 AM CDT DTL Estimated GFR (eGFR) 35(L) >=60 mL/min/BSA 06/24/2024 8:03 AM CDT DTL Comment: Estimated GFR calculated using the 2020 CKD_EPI creatinine equation. Calcium, Total, S 8.9 8.8 - 10.2 mg/dL 06/24/2024 8:03 AM CDT DTL Glucose, S 94 70 - 140 mg/dL 06/24/2024 8:03 AM CDT DTL Blood (Blood, Venous) 06/24/2024 7:05 AM CDT 06/24/2024 7:46 AM CDT Barby Ojeda APRN, C.N.P., M.S.N. 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 See document viewer. * Full Code (Latest Code Status on File) Date Activated Date Inactivated Comments 10/13/2022 11:41 AM 10/14/2022 2:29 PM Question Answer Comments Full Code: Discussed
--- OUTSIDE RECORDS SUMMARY | 2024-09-06 14:40 | XMS_ITS | Clinical Summary ---
Author Organization [facility] Address [address] [place] [id number] Care Team Providers Care Gun Mechanic Name Role Phone Gaetano Mariscal MD Primary Care Provider Allergies No known active allergies Medications SIMVASTATIN PO Take 40 mg by mouth [...] Dose unknown Active atenolol (TENORMIN) 25 MG tabletIndications :Essential hypertension Take 2 tablets (50 mg) by mouth daily 30 tablet 7 Active Active Problems Problem Noted Date Diagnosed Date Sepsis 03/19/2017 Social History Tobacco Use Types Packs/Day Years Used Date Smoking Tobacco: Former Smokeless Tobacco: Never Alcohol Use Standard Drinks/Week Comments Yes 0 (1 standard drink = 0.6 oz pur e alcohol) wine daily Sex and Gender Information Value Date Recorded Sex Assigned at Not on file Legal Sex Male 12:49 PM CDT Gender Identity Not on file Sexual Orientation Not on file Last Filed Vital Signs Vital Sign Reading Time Taken Comments Blood Pressure 133/65 04/02/2017 3:00 PM [employer] Pulse 57 04/02/2017 3:00 PM [employer] Temperature 35.9 C (96.6 F) 04/02/2017 3:00 PM [employer] Respiratory Rate 16 04/02/2017 3:00 PM [employer] Oxygen Saturation 99% 04/01/2017 2:23 PM [employer] Inhaled Oxygen Concentration - - Weight 143 kg (315 lb 3.2 oz) 03/24/2017 7:04 AM [employer] Height 190.5 cm (6' 3) 03/19/2017 8:55 PM [employer] Body Mass Index 39.4 03/19/2017 8:55 PM [employer] Plan of Treatment Not on file Insurance MEDICARE Advance Directives For more information, please contact: [phone] * Full Code (Latest Code Status on File) Date Activated Date Inactivated Comments 03/24/2017 1:29 PM * Full Code Date Activated Date Inactivated Comments 03/19/2017 9:00 PM 03/24/2017 1:29 PM Care Teams Gun Mechanic Relationship Specialty Start Date End Date Gaetano Mariscal MD [facility] [address] [place] [address] PCP - General Emergency Medicine 03/19/17
--- NOTE | 2024-09-06 16:05 | ED.GENADULT ---
HPI - General Adult General Date Seen: 09/06/24 Chief complaint: Unspecified Complaint, Adult Stated complaint: from [facility] Time Seen by Provider: 09/06/24 15:00 Source: patient Mode of arrival: ambulatory Limitations: no limitations History of Present Illness HPI narrative: Patient is a 83 year old male with a history of bladder cancer currently on chemotherapy presenting to the emergency department for concerns of weakness. Patient had previous bladder cancer surgery 13 years ago and was cancer free up until recently when they found a new mass. Since then he has been on chemotherapy. Is on his 2nd cycle. Last dose of chemotherapy was 1 week ago. Is following up in the clinic today and was complaining about hip girdle weakness along with neck extensors weakness. One of his chemotherapy drugs he is on can cause myositis so the provider at the [facility] did a large workup for this. Notice I did have a UTI, elevated liver function tests, troponin, creatinine kinase, and slightly elevated creatinine. Due to all this he was sent to the emergency department. I did speak to the patient he states over the past few days he is having some difficulty standing up without having any arm rest to push himself up. Has not noticed any upper extremity weakness. Has also noticed weakness of his neck extensors and can keep his head up. Then also noticed his urostomy ite is darker with floating particles in it which is abnormal for him. He states it will look fact that when he gets a UTI. Denies fevers, chills, chest pain, shortness of breath, abdominal pain, diarrhea, constipation, headache, vision changes. No other concerns noted at this time. States all the symptoms started about 3 or 4 days ago. Related Data Home Medications ?Medication ?Instructions ?Recorded ?Confirmed polyethylene glycol 3350 17 17 g PO DAILY PRN Constipation 04/14/24 09/06/24 gram/dose oral powder (Miralax) ascorbic acid (vitamin C) 500 mg 500 mg PO 3XW 08/15/24 09/06/24 capsule diphenhydramine HCl 25 mg capsule 25 mg PO BID PRN 08/15/24 09/06/24 (Allergy (diphenhydramine)) ferrous sulfate 325 mg (65 mg 325 mg PO 3XW 08/15/24 09/06/24 iron) tablet (FeroSul) hydroxyzine HCl 25 mg tablet 25 mg PO TID PRN 08/15/24 09/06/24 krill oil 500 mg capsule 500 mg PO QDAY 08/15/24 09/06/24 ondansetron 8 mg disintegrating 8 mg PO Q12H PRN 08/15/24 09/06/24 tablet prochlorperazine maleate 10 mg 10 mg PO Q8H PRN 08/15/24 09/06/24 tablet Held on 09/06/24. Instructions: per patient sennosides 8.6 mg capsule (senna) 17.2 mg PO BID 08/15/24 09/06/24 acetaminophen 500 mg capsule 1,000 mg PO Q6H PRN 09/06/24 09/06/24 allopurinol 300 mg tablet 300 mg PO DAILY 09/06/24 09/06/24 atenolol 25 mg tablet 25 mg PO DAILY 09/06/24 09/06/24 losartan 100 mg tablet 100 mg PO DAILY 09/06/24 09/06/24 simvastatin 40 mg tablet 40 mg PO HS 09/06/24 09/06/24 triamcinolone acetonide 0.1 % 1 applic topical BID PRN itch 09/06/24 09/06/24 lotion Allergies Allergy/AdvReac Type Severity Reaction Status Date / Time No Known Allergies Allergy Verified 09/06/24 14:48 Review of Systems Status of ROS: Reports: 10 or more systems reviewed and unremarkable except as noted in History and below [facility] Medical History Hearing loss ?H91.90 - Unspecified hearing loss, unspecified ear (ICD-10) History of pulmonary embolism ?Z86.711 - Personal history of pulmonary embolism (ICD-10) Tubular adenoma ?D36.9 - Benign neoplasm, unspecified site (ICD-10) Obesity ?E66.9 - Obesity, unspecified (ICD-10) Surgical History History of insertion of central venous access port ?Z95.828 - Presence of other vascular implants and grafts (ICD-10) History of thyroidectomy ?Z98.890 - Other specified postprocedural states (ICD-10) ?Z90.89 - Acquired absence of other organs (ICD-10) History of urostomy ?Z98.890 - Other specified postprocedural states (ICD-10) Social History Narrative: Hx tobacco use What is your current living situation?: I presently have a place to live Problems where you live: no known problems In the past 12 months, utilities in danger of being shut off: no In past 12 months, lack of transportation kept you from medical appts, meetings, work, or getting things needed for daily living: no In the past 12 mos, have been you worried that your food would run out before you had money to buy more?: never true In the past 12 mos, the food you bought just didn't last and you didn't have money to buy more?: never true Smoking Status: Former smoker Do you use any of these nicotine containing products: None Second hand tobacco smoke exposure: No How often do you have a drink containing alcohol: 2-3 times a week Alcohol type: beer and wine How many standard drinks containing alcohol do you have on a typical day: 1 or 2 How often do you have six or more drinks on one occasion: Never AUDIT-C Alcohol total score: 3 Non-prescribed substance use: denies use Caffeine: Yes (1 cup of coffee a day) How often does anyone, including family, friends and others, physically hurt you: never How often does anyone, including family, friends and others, insult or talk down to you: never How often does anyone, including family, friends and others, threaten you with harm: never How often does anyone, including family, friends and others, scream or curse at you: never service: Yes Exam Narrative: Exam Narrative: Const: Well-nourished, Well-developed, in no distress Eyes: PERRL, no conjunctival injection, and symmetrical lids HENT: Atraumatic external nose and ears. Moist mucous membranes. Neck: Symmetric, trachea midline, No thyromegaly. CVS: RRR, No murmurs or gallops. Peripheral pulses 2+ and equal in all extremities RESP: Unlabored respiratory effort. Clear to auscultation bilaterally. GI: Nontender/Nondistended, No rebound or guarding. MSK:Extremities w/o deformity, Normal Active ROM Skin: Warm, Dry. No rashes or lesions. Neuro: Normal Muscle tone, muscle strength 4/5 in hip flexors but 5/5 in last of lower extremities. Muscle strength 5/5 in upper extremities. Psych: Awake, Alert, & Oriented x3. Appropriate mood and affect. Const: Vital Signs, click to edit/add: Vital Signs - 24 hr 09/06/24 14:38 09/06/24 14:59 09/06/24 15:00 Temperature 97.1 F L Pulse Rate 59 L 62 Pulse Rate [Pulse Oximeter] 70 Respiratory Rate 22 Blood Pressure 171/67 H Blood Pressure [Le ft Upper Arm] 156/73 H Pulse Oximetry 97 98 97 Oxygen Delivery Me thod Room Air 09/06/24 15:01 09/06/24 15:02 09/06/24 15:15 Temperature Pulse Rate 66 65 65 Pulse Rate [Pulse Oximeter] Respiratory Rate Blood Pressure 150/80 H Blood Pressure [Le ft Upper Arm] Pulse Oximetry 96 96 98 Oxygen Delivery Me thod 09/06/24 15:17 09/06/24 15:30 09/06/24 15:32 Temperature Pulse Rate 65 58 L 61 Pulse Rate [Pulse Oximeter] Respiratory Rate Blood Pressure 173/61 H 147/60 H Blood Pressure [Le ft Upper Arm] Pulse Oximetry 98 98 96 Oxygen Delivery Me thod 09/06/24 15:45 09/06/24 15:47 09/06/24 15:48 Temperature Pulse Rate 66 65 68 Pulse Rate [Pulse Oximeter] Respiratory Rate Blood Pressure 152/67 H Blood Pressure [Le ft Upper Arm] Pulse Oximetry 97 98 98 Oxygen Delivery Me thod 09/06/24 16:00 09/06/24 16:01 09/06/24 16:02 Temperature Pulse Rate 67 66 69 Pulse Rate [Pulse Oximeter] Respiratory Rate Blood Pressure 141/61 H Blood Pressure [Le ft Upper Arm] Pulse Oximetry 97 97 97 Oxygen Delivery Me thod 09/06/24 16:15 09/06/24 16:16 09/06/24 16:17 Temperature Pulse Rate 64 67 73 Pulse Rate [Pulse Oximeter] Respiratory Rate Blood Pressure 143/62 H Blood Pressure [Le ft Upper Arm] Pulse Oximetry 96 96 96 Oxygen Delivery Me thod 09/06/24 16:30 09/06/24 16:31 09/06/24 16:32 Temperature Pulse Rate 67 73 65 Pulse Rate [Pulse Oximeter] Respiratory Rate Blood Pressure 124/59 L Blood Pressure [Le ft Upper Arm] Pulse Oximetry 94 95 95 Oxygen Delivery Me thod 09/06/24 16:45 09/06/24 16:47 09/06/24 17:00 Temperature Pulse Rate 69 72 76 Pulse Rate [Pulse Oximeter] Respiratory Rate Blood Pressure 156/65 H Blood Pressure [Le ft Upper Arm] Pulse Oximetry 96 98 98 Oxygen Delivery Me thod 09/06/24 17:02 09/06/24 17:15 09/06/24 17:16 Temperature Pulse Rate 68 66 65 Pulse Rate [Pulse Oximeter] Respiratory Rate Blood Pressure 159/73 H 158/69 H Blood Pressure [Le ft Upper Arm] Pulse Oximetry 98 96 97 Oxygen Delivery Me thod 09/06/24 17:17 Temperature Pulse Rate 65 Pulse Rate [Pulse Oximeter] Respiratory Rate Blood Pressure Blood Pressure [Le ft Upper Arm] Pulse Oximetry 98 Oxygen Delivery Me thod Course Vital Signs Vital signs: Initial Vital Signs Temperature 97.1 F L 09/06/24 14:38 Temperature Source Temporal Artery Scan 09/06/24 14:38 Pulse Rate 70 09/06/24 14:38 Respiratory Rate 09/06/24 14:38 Blood Pressure 156/73 H 09/06/24 14:38 Blood Pressure Mean 100 09/06/24 14:38 Blood Pressure Position Sitting 09/06/24 14:38 Pulse Oximetry 97 09/06/24 14:38 Oxygen Delivery Method Room Air 09/06/24 14:38 Vital Signs Temperature 97.1 F L 09/06/24 14:38 Pulse Rate 70 09/06/24 14:38 Respiratory Rate 22 09/06/24 14:38 Blood Pressure 156/73 H 09/06/24 14:38 Pulse Oximetry 97 09/06/24 14:38 Oxygen Delivery Method Room Air 09/06/24 14:38 Temperature 97.1 F L 09/06/24 14:38 Pulse Rate 65 09/06/24 17:17 Respiratory Rate 09/06/24 14:38 Blood Pressure 158/69 H 09/06/24 17:16 Pulse Oximetry 98 09/06/24 17:17 Oxygen Delivery Method Room Air 09/06/24 14:38 Medications Administered Medications: Generic Name Dose Route Start Last Admin Trade Name Freq PRN Reason Stop Dose Admin Sodium Chloride 1,000 mls @ 125 mls/hr 09/06/24 16:08 09/06/24 16:21 0.9 % Sodium Chloride 1000 Ml IV 125 mls/hr .Q8H YUNI Administration Discontinued Medications Generic Name Dose Route Start Last Admin Trade Name Alina PRN Reason Stop Dose Admin Prednisone 120 mg 09/06/24 17:08 09/06/24 17:25 Prednisone 20 Mg Tablet PO 09/06/24 17:09 120 mg ONCE ONE Administration Medical Decision Making MDM Narrative Medical decision making narrative: Patient is a 83-year-old male sent to our emergency department for concerns elevated cardiac enzymes and myositis. His urinalysis also shows a possible UTI. Of note he does have the urostomy bag. States he has urine currently looks like it does with UTIs but states when he does have UTI he typically is much sicker. He is not having any cardiac symptoms at this time denies any chest pain or shortness of breath which makes my concern for myocarditis less. EKG shows no concerning findings. His elevated LFTs and CK are likely related to the myositis. The weakness in his hip girdle flexors and neck extensors is consistent with a myositis. Will repeat the troponin. Kidney function is slightly elevated to 2.1. This is not an acute kidney injury but there is concerned things could worsen considering the elevated creatinine kinase and possible underlying rhabdomyolysis from this. He did receive a L fluid at the [facility] and I will do be kids fluids His repeat troponin has come down from 0.29 to 0.24. I spoke to the accepting hospitalist Dr. Harris who accepts him for admission. States he has an observation criteria patient and the patient and family are agreeable to observation at this time. Will start the patient on high-dose steroids for his myositis. Will hold off on antibiotics for possible UTI Lab Data Labs: Lab Results 09/06/24 Range/Units 15:35 Troponin I 0.24 H* (0.01-0.04) ng/mL ECG Data Attestation: I personally reviewed and interpreted this ECG as follows: Prior ECG tracings: available for review Interpretation: Normal sinus rhythm with a rate 60 beats per minute, first-degree AV block, normal QRS interval, normal QTC interval, normal axis, no ST or T-wave abnormalities. Appears similar previous EKG on file Discharge Plan Discharge Clinical Impression: Myositis, Elevated LFTs, Elevated troponin Patient Disposition: Admitted As Observation
[2024-09-06] MEDS: 0.9 % SODIUM CHLORIDE 1000 ml 1,000 ML 125 ML IV (16:21)
[2024-09-06 16:36] LABS: Troponin I* 0.24 ng/mL (0.01-0.04)
[2024-09-06] MEDS: predniSONE 20 MG TABLET 120 MG PO (17:25)
--- NOTE | 2024-09-06 18:32 | PM.IMHP1 ---
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 Garcia from [facility] who agreed that these symptoms are concerning for the probability of triple M overlap syndrome and noted that small studies the progression to the need for mechanical ventilation in these cases is as high as 25-50%. She recommended obtaining a pro BNP, chest x-ray, and giving an additional steroid in the form of methylprednisolone 100 mg IV now so that we are closer to the 2 milligram/kilogram dose of steroids for the initial dose and to treat with high-dose steroids until the symptoms improve, at which time this steroids can be slowly tapered. She noted it would be okay to wait until tomorrow to get the echocardiogram and that he did not need to be transferred tonight unless he needed mechanical ventilation for respiratory failure. The proBNP is mildly elevated at 921 and the chest x-ray has been completed but is not formally read yet. On my review of the chest x-ray, I do not see any consolidations or acute disease processes. Status: Acute (2) Fatigue: Problem comment: as above Status: Acute (3) Myositis: Problem comment: as above Status: Suspected (4) Neck muscle weakness: Problem comment: as above Status: Acute (5) Myasthenia gravis: Problem comment: as above Status: Suspected (6) Myocarditis: Problem comment: as above Status: Suspected (7) Elevated LFTs: Problem comment: as above Status: Acute (8) Elevated troponin: Problem comment: as above Status: Acute (9) RUTHY on CPAP: Problem comment: - continue home CPAP, his brought in for him Status: Chronic (10) Bladder cancer: Status: Chronic (11) History of urostomy: Problem comment: Obtain UA Status: Chronic (12) Chronic kidney disease (CKD): Problem comment: - Creatinine mildly elevated above baseline, may be KALEE - will give gentle IV fluids as I do not want to compromise his respiratory status, monitor Status: Chronic (13) History of thyroid cancer: Problem comment: Papillary, s/p partial thyroidectomy - TSH rising, maybe sick euthyroid vs recurrence - continue monitoring through [facility] Status: Chronic (14) Hypertension: Problem comment: - continue atenolol, note that this is renally excreted and his creatinine is currently mildly elevated. This may need to be held if he becomes bradycardic. I am holding losartan due to mild creatinine elevation. Status: Chronic (15) Hyperlipidemia: Problem comment: - Hold statin due to possible myositis and elevated AST and ALT Status: Chronic Total Time Spent Total Time Spent: Time spent: Today I spent 75 minutes seeing the patient, discussing the patient with ER staff, reviewing Expanse and EPIC notes/diagnostics, discussing the care plan with our care team that includes social work, PT/OT, pharmacy, RT, assisted and documenting my impressions and plan in the medical record. 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 Treatment requires high-dose steroids, and he will need monitoring to determine when to decrease those as well. This patient will require hospital services as outlined in the assessment and plan in order to stabilize and be safely discharged to a lower level of care. Because of the risk and acuity as described above, this patient cannot be managed at a lower level of care. LENGTH OF STAY: 2 IP ? Anticipated LOS>2 midnights due to acuity of clinical presentation requiring inpatient level of care Hospitalist- H&P: HPI History of Present Illness Time Seen by Provider: 18:51 Date Seen: 09/06/24 Chief complaint: from [facility] Narrative: Michael Dwyer is a 83 year old male who has recurrent bladder cancer for which he recently received the 1st medication of cycle 2 of padcev and pembrolizumab and subsequently developed fatigue and sleepiness, neck weakness, left eyelid ptosis, bilateral shoulder pain, and thigh and hip weakness. He denies abdominal pain or chest pain, but when I went in to see him for the 1st time, he noted that he started feeling short of breath just before I walked in and was notably heaving to get in the breath mid sentence while he was talking with me. 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 Recurrence was noted this year and he started cycle 1 of Enfortumab vedontin/ keytruda on 08/05/2024. He notes that cycle made him a little fatigued and he had a rash on his arms, but he otherwise did okay. He then started cycle 2 on 08/29/2024 with the keytruda dose. When he came in to the oncology clinic for the dose of padcev, but he came in a wheelchair pushed by his because he was too weak to stand up, which is totally new for him. He also was looking down with his head fallen forward because it was too much effort for him to lift his head up to look at the oncology nurse. There was concern for Keytruda induced myopathy and labs were drawn and he was sent to the emergency department. Labs done today in the oncology clinic reveal a creatinine of 2.1, BUN 35, AST 247, ALT 101, alkaline phosphatase 106, total bilirubin 1, white count 7.49, hemoglobin 12.5, ESR 53, total CK 3687, troponin I 0.29, CRP 3.3. The patient also tells me that his urine has been a bit darker since these symptoms started. He denies any fevers or chills. He denies headache, chest pain, chest discomfort, chest tightness. He he was not short of breath until a few min minutes before I saw him. By the time I was done examining him, he told me that he was already starting to feel less short of breath although he was still catching his breath in the middle of a sentence. His , Luz, and neighbor came later to deliver his CPAP machine and I went back in spoke with them to answer their questions as well. 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/08/06) ?H33.009 - Unspecified retinal detachment with retinal break, unspecified eye (ICD-10) Abdominal wall defect, acquired (01/13/20) ?M95.8 - Other specified acquired deformities of musculoskeletal system (ICD-10) Venous insufficiency (chronic) (peripheral) (05/15/23) ?I87.2 - Venous insufficiency (chronic) (peripheral) (ICD-10) Pulmonary embolism (07/14/11) ?I26.99 - Other pulmonary embolism without acute cor pulmonale (ICD-10) History of thyroid cancer ?Z85.850 - Personal history of malignant neoplasm of thyroid (ICD-10) Chronic kidney disease (CKD) ?N18.9 - Chronic kidney disease, unspecified (ICD-10) Coronary artery disease (07/14/11) ?I25.10 - Atherosclerotic heart disease of [place] coronary artery without angina pectoris (ICD-10) Gout (07/14/11) ?M10.9 - Gout, unspecified (ICD-10) Peripheral venous insufficiency ?I87.2 - Venous insufficiency (chronic) (peripheral) (ICD-10) Hyperlipidemia (07/14/11) ?E78.5 - Hyperlipidemia, unspecified (ICD-10) RUTHY on CPAP ?G47.33 - Obstructive sleep apnea (adult) (pediatric) (ICD-10) Hearing loss ?H91.90 - Unspecified hearing loss, unspecified ear (ICD-10) History of pulmonary embolism ?Z86.711 - Personal history of pulmonary embolism (ICD-10) Tubular adenoma ?D36.9 - Benign neoplasm, unspecified site (ICD-10) Obesity ?E66.9 - Obesity, unspecified (ICD-10) Surgical History (Updated 09/06/24 @ 22:35 by Precious Harris MD) History of insertion of central venous access port ?Z95.828 - Presence of other vascular implants and grafts (ICD-10) History of thyroidectomy ?Z98.890 - Other specified postprocedural states (ICD-10) ?Z90.89 - Acquired absence of other organs (ICD-10) History of urostomy ?Z98.890 - Other specified postprocedural states (ICD-10) Social History Narrative: Hx tobacco use What is your current living situation?: I presently have a place to live Problems where you live: no known problems Problems where you live details: N/A In the past 12 months, utilities in danger of being shut off: no In past 12 months, lack of transportation kept you from medical appts, meetings, work, or getting things needed for daily living: no In the past 12 mos, have been you worried that your food would run out before you had money to buy more?: never true In the past 12 mos, the food you bought just didn't last and you didn't have money to buy more?: never true Smoking Status: Former smoker Do you use any of these nicotine containing products: None Second hand tobacco smoke exposure: No How often do you have a drink containing alcohol: 2-3 times a week Alcohol type: beer and wine How many standard drinks containing alcohol do you have on a typical day: 1 or 2 How often do you have six or more drinks on one occasion: Never AUDIT-C Alcohol total score: 3 Non-prescribed substance use: denies use Caffeine: Yes (1 cup of coffee a day) How often does anyone, including family, friends and others, physically hurt you: never How often does anyone, including family, friends and others, insult or talk down to you: never How often does anyone, including family, friends and others, threaten you with harm: never How often does anyone, including family, friends and others, scream or curse at you: never service: Yes Meds Home Medications and Allergies Home Medications ?Medication ?Instructions ?Recorded ?Confirmed ?Type polyethylene glycol 3350 17 17 g PO DAILY PRN Constipation 04/14/24 09/06/24 History gram/dose oral powder (Miralax) ascorbic acid (vitamin C) 500 mg 500 mg PO 3XW 08/15/24 09/06/24 History capsule diphenhydramine HCl 25 mg capsule 25 mg PO BID PRN 08/15/24 09/06/24 History (Allergy (diphenhydramine)) ferrous sulfate 325 mg (65 mg 325 mg PO 3XW 08/15/24 09/06/24 History iron) tablet (FeroSul) hydroxyzine HCl 25 mg tablet 25 mg PO TID PRN 08/15/24 09/06/24 History krill oil 500 mg capsule 500 mg PO QDAY 08/15/24 09/06/24 History ondansetron 8 mg disintegrating 8 mg PO Q12H PRN 08/15/24 09/06/24 History tablet prochlorperazine maleate 10 mg 10 mg PO Q8H PRN 08/15/24 09/06/24 History tablet Held on 09/06/24. Instructions: per patient sennosides 8.6 mg capsule (senna) 17.2 mg PO BID 08/15/24 09/06/24 History acetaminophen 500 mg capsule 1,000 mg PO Q6H PRN 09/06/24 09/06/24 History allopurinol 300 mg tablet 300 mg PO DAILY 09/06/24 09/06/24 History atenolol 25 mg tablet 25 mg PO DAILY 09/06/24 09/06/24 History losartan 100 mg tablet 100 mg PO DAILY 09/06/24 09/06/24 History simvastatin 40 mg tablet 40 mg PO HS 09/06/24 09/06/24 History triamcinolone acetonide 0.1 % 1 applic topical BID PRN itch 09/06/24 09/06/24 History lotion Allergies Allergy/AdvReac Type Severity Reaction Status Date / Time No Known Allergies Allergy Verified 09/06/24 14:48 Exam Narrative: Exam Narrative: General: Mild respiratory distress. Awake alert oriented x3. HEENT: Normocephalic atraumatic, left ptosis noted, pupils equally round and reactive to light and accommodation. Oropharynx clear. Mucous membranes are moist. No cervical lymphadenopathy, thyromegaly or carotid bruits. No JVD. Cardiovascular: Regular rate and rhythm. No murmurs, gallops, or rubs. Chest: Mildly increased work of breathing. Takes of breath mid sentence. Clear to auscultation bilaterally. No crackles or wheezes. Abdomen: Bowel sounds present. Soft, nondistended, nontender. No hepatosplenomegaly. Ventral hernia noted. Urostomy noted. Urine is a little dark with some sediment in the bag. Extremities: 1 to 2+ pitting edema at the ankles bilaterally, no cyanosis or clubbing. Skin: No jaundice, no pallor, no rashes. Neuro: Generalized weakness is noted, especially in the proximal muscles. Romberg is negative. Ptosis of the left eyelid is noted. Cranial nerves 2-12 are otherwise intact. Extraocular movements are full. No nystagmus. No other facial asymmetry. Tongue is midline. Peripheral vision and vision are grossly intact. Strength is 4/5 in bilateral proximal muscle groups of the shoulders and legs, 5/5 in bilateral distal muscle groups of the 4 extremities. Light touch sensation is intact in face body and extremities. Const: Vital Signs, click to edit/add: Vital Signs - 24 hr 09/06/24 14:38 09/06/24 14:59 09/06/24 15:00 Temperature 97.1 F L Pulse Rate 59 L 62 Pulse Rate [Pulse Oximeter] 70 Pulse Rate [Right Radial] Respiratory Rate 22 Blood Pressure 171/67 H Blood Pressure [Le ft Upper Arm] 156/73 H Blood Pressure [Ri ght Arm] Pulse Oximetry 97 98 97 Oxygen Delivery Me thod Room Air 09/06/24 15:01 09/06/24 15:02 09/06/24 15:15 Temperature Pulse Rate 66 65 65 Pulse Rate [Pulse Oximeter] Pulse Rate [Right Radial] Respiratory Rate Blood Pressure 150/80 H Blood Pressure [Le ft Upper Arm] Blood Pressure [Ri ght Arm] Pulse Oximetry 96 96 98 Oxygen Delivery Me thod 09/06/24 15:17 09/06/24 15:30 09/06/24 15:32 Temperature Pulse Rate 65 58 L 61 Pulse Rate [Pulse Oximeter] Pulse Rate [Right Radial] Respiratory Rate Blood Pressure 173/61 H 147/60 H Blood Pressure [Le ft Upper Arm] Blood Pressure [Ri ght Arm] Pulse Oximetry 98 98 96 Oxygen Delivery Me thod 09/06/24 15:45 09/06/24 15:47 09/06/24 15:48 Temperature Pulse Rate 66 65 68 Pulse Rate [Pulse Oximeter] Pulse Rate [Right Radial] Respiratory Rate Blood Pressure 152/67 H Blood Pressure [Le ft Upper Arm] Blood Pressure [Ri ght Arm] Pulse Oximetry 97 98 98 Oxygen Delivery Me thod 09/06/24 16:00 09/06/24 16:01 09/06/24 16:02 Temperature Pulse Rate 67 66 69 Pulse Rate [Pulse Oximeter] Pulse Rate [Right Radial] Respiratory Rate Blood Pressure 141/61 H Blood Pressure [Le ft Upper Arm] Blood Pressure [Ri ght Arm] Pulse Oximetry 97 97 97 Oxygen Delivery Me thod 09/06/24 16:15 09/06/24 16:16 09/06/24 16:17 Temperature Pulse Rate 64 67 73 Pulse Rate [Pulse Oximeter] Pulse Rate [Right Radial] Respiratory Rate Blood Pressure 143/62 H Blood Pressure [Le ft Upper Arm] Blood Pressure [Ri ght Arm] Pulse Oximetry 96 96 96 Oxygen Delivery Me thod 09/06/24 16:30 09/06/24 16:31 09/06/24 16:32 Temperature Pulse Rate 67 73 65 Pulse Rate [Pulse Oximeter] Pulse Rate [Right Radial] Respiratory Rate Blood Pressure 124/59 L Blood Pressure [Le ft Upper Arm] Blood Pressure [Ri ght Arm] Pulse Oximetry 94 95 95 Oxygen Delivery Me thod 09/06/24 16:45 09/06/24 16:47 09/06/24 17:00 Temperature Pulse Rate 69 72 76 Pulse Rate [Pulse Oximeter] Pulse Rate [Right Radial] Respiratory Rate Blood Pressure 156/65 H Blood Pressure [Le ft Upper Arm] Blood Pressure [Ri ght Arm] Pulse Oximetry 96 98 98 Oxygen Delivery Me thod 09/06/24 17:02 09/06/24 17:15 09/06/24 17:16 Temperature Pulse Rate 68 66 65 Pulse Rate [Pulse Oximeter] Pulse Rate [Right Radial] Respiratory Rate Blood Pressure 159/73 H 158/69 H Blood Pressure [Le ft Upper Arm] Blood Pressure [Ri ght Arm] Pulse Oximetry 98 96 97 Oxygen Delivery Me thod 09/06/24 17:17 09/06/24 18:08 Temperature 97.4 F L Pulse Rate 65 Pulse Rate [Pulse Oximeter] Pulse Rate [Right Radial] 86 Respiratory Rate 18 Blood Pressure Blood Pressure [Le ft Upper Arm] Blood Pressure [Ri ght Arm] 178/75 H Pulse Oximetry 98 99 Oxygen Delivery Me thod Room Air Hospitalist - H&P: Result Labs Labs: Cardiac Enzymes 09/06/24 Range/Units 15:35 Troponin I 0.24 H* (0.01-0.04) ng/mL VBG pH is 7.403, pCO2 38, PO2 less than 30.1, HC03 23. ProBNP is 921. 09/06/2024 3:35 p.m. EKG: Sinus rhythm with first-degree AV block, 60 beats per minute, possible inferior and anterior infarcts, age undetermined. (first-degree AV block was also seen on an EKG from 08/09/2022, so this is not new). 09/06/2024 7:21 p.m. EKG: Sinus rhythm with first-degree AV block, 66 beats per minute, possible inferior and anterior infarcts, age undetermined. EKG is unchanged from previous EKG today.
--- NOTE | 2024-09-06 20:37 | CRLHL7_ITS ---
For Patients: As a result of the Century Cures Act, medical imaging exams and procedure reports are released immediately into your electronic medical record. You may view this report before your referring provider. If you have questions, please contact your health care provider. INDICATION: Dyspnea. TECHNIQUE: Chest 1 views. COMPARISON: 08/22/2024. FINDINGS: Cardiovascular and mediastinum: Heart size is normal. Unremarkable mediastinum. Right chest wall port with central catheter terminating the lower SVC. Lungs and pleural spaces: Slightly low lung volumes. No definite acute infiltrate. No sign of pleural effusion. No pneumothorax. Bones and soft tissues: No significant findings. IMPRESSION: No definite acute findings. Dictated by Guido Villanueva MD @ 09/06/2024 10:53:12 PM (Electronically Signed)
[2024-09-06 20:55] LABS: HCO3 VBG 23 mmol/L (21-28); PCO2 VBG 38 mmHG (40-50); PO2 VBG < 30.1 mmHG (25-47); pH VBG 7.403 (7.32-7.43)
[2024-09-06] MEDS: METHYLPREDNISOLONE SOD SUCC 62.5 MG/ML (125) 100 MG IVP (21:25)
[2024-09-06] MEDS: SENNOSIDES 1 TAB TABLET 2 TAB PO (21:26)
[2024-09-06] MEDS: SODIUM CHLORIDE 0.9 % (FLUSH) 10 ML SYRINGE 5 ML IVF (21:27)
[2024-09-06 21:28] LABS: NT Pro B Type NatriureticPept* 921 pg/mL (See Note)
[2024-09-06] MEDS: LACTATED RINGERS 1000 ML 1,000 ML 100 ML IV (23:31)
[2024-09-07] VITALS (7 sets, daily range): BP systolic 130–149; BP diastolic 53–98; PULSE 49–62; RESP 18–20; TEMP 35.6–36.6; O2SAT 94–97; BMI 36.1
[2024-09-07 06:15] LABS: HCO3 VBG 21 mmol/L (21-28); PCO2 VBG 37 mmHG (40-50); PO2 VBG 44.9 mmHG (25-47); pH VBG 7.366 (7.32-7.43)
[2024-09-07 06:32] LABS: Albumin* 3.1 g/dL (3.3-5.0); Chloride* 112 mmol/L (96-114)
[2024-09-07 06:33] LABS: Potassium* 4.6 mmol/L (3.6-5.1); Sodium* 139 mmol/L (135-149)
[2024-09-07 06:35] LABS: Blood Urea Nitrogen* 34 mg/dL (7-30); Creatinine* 1.7 mg/dL (0.5-1.5); Est. Creatinine Clearance* 38.95; Estimated Glomerular Filt Rate 40 ml/min
[2024-09-07 06:36] LABS: Alanine Aminotransferase* 95 U/L (4-50); Alkaline Phosphatase* 89 U/L (40-150); Anion Gap 4 mEq/L (7-15); Aspartate Amino Transferase* 196 U/L (12-35); Bilirubin Direct* 0.3 mg/dL (0.0-0.5); Bilirubin Total* 0.6 mg/dL (0.1-1.5); Calcium* 9.1 mg/dL (8.4-10.6); Carbon Dioxide* 23 mmol/L (20-32); Glucose* 160 mg/dL (60-115)
[2024-09-07 06:39] LABS: C Reactive Protein* 3.1 mg/dL (0.5-1.0)
[2024-09-07 06:47] LABS: Creatine Kinase* 2078 U/L (54-186)
--- NOTE | 2024-09-07 06:51 | PC.NURSE ---
[id number]: Patient pleasant and cooperative. A&Ox3. Denies pain. Neuros unremarkable except for L. eyelid droop (MD aware). Afebrile. Sats>90 RA. CPAP for noc. Denies N/V. Chronic urostomy which patient manages independently. Patient notes I am definitely doing better today.
[2024-09-07 06:56] LABS: Troponin I* 0.17 ng/mL (0.01-0.04)
[2024-09-07 07:13] LABS: Hematocrit 36.4 % (37.0-53.0); Hemoglobin* 11.9 gm/dL (13.5-17.5); Immature Granulocytes Abs Auto 0.11 K/uL (0.00-0.30); Immature Granulocytes Pct Auto 1.2 %; Lymphocytes Percent Auto 9.7 % (20-44); Mean Corpuscular HGB Conc 33 gm/dL (32-36); Mean Corpuscular Hemoglobin 31 pg (26-34); Mean Corpuscular Volume 93 fL (80-100); Monocytes Percent Auto 1.1 % (0.0-11.0); Platelet Count* 176 K/uL (140-440); White Blood Count* 8.83 K/uL (4.50-11.00)
[2024-09-07 07:20] LABS: Slide Review Reflex No
[2024-09-07] MEDS: atenoloL 25 MG TABLET PO (08:53)
[2024-09-07] MEDS: SENNOSIDES 1 TAB TABLET 2 TAB PO (08:53)
[2024-09-07 09:33] LABS: Uric Acid* 8.2 mg/dL (2.2-8.4)
--- NOTE | 2024-09-07 10:36 | PM.IMPN1 ---
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 Garcia from [facility] who agreed that these symptoms are concerning for the probability of triple M overlap syndrome and noted that small studies the progression to the need for mechanical ventilation in these cases is as high as 25-50%. She recommended obtaining a pro BNP, chest x-ray, and giving an additional steroid in the form of methylprednisolone 100 mg IV now so that we are closer to the 2 milligram/kilogram dose of steroids for the initial dose and to treat with high-dose steroids until the symptoms improve, at which time this steroids can be slowly tapered. She noted it would be okay to wait until tomorrow to get the echocardiogram and that he did not need to be transferred tonight unless he needed mechanical ventilation for respiratory failure. The proBNP is mildly elevated at 921 and the chest x-ray has been completed but is not formally read yet. On my review of the chest x-ray, I do not see any consolidations or acute disease processes. 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 High-dose steroid treatment. Obtain echo. Trend troponin. Status: Suspected (3) Myositis: Problem comment: Likely from Keytruda. High-dose steroid treatment. Monitor CK and clinical improvement Status: Suspected (4) Myasthenia gravis: Problem comment: Weakness of eyelid due to drug induced myasthenia gravis or myositis. Status: Suspected (5) Chronic kidney disease (CKD): Problem comment: Continue to monitor. Status: Chronic (6) History of thyroid cancer: Problem comment: Papillary, s/p partial thyroidectomy - TSH rising, free T4 is normal. Ongoing outpatient monitoring. Unclear if Keytruda is having effect on thyroid function Status: Chronic (7) Constipation: Problem comment: Chronic problem. Schedule laxatives. Status: Acute (8) Fatigue: Problem comment: Likely from Keytruda toxicity Status: Acute (9) RUTHY on CPAP: Problem comment: - continue home CPAP, his brought in for him Status: Chronic (10) Elevated LFTs: Problem comment: Probably due to Keytruda toxicity. Previous LFTs have been normal. Status: Acute (11) Hypertension: Problem comment: Continue to monitor off losartan. Will hold atenolol due to mild bradycardia. Status: Chronic (12) Dermatitis: Problem comment: Patient reports that he had a skin rash that developed after his 1st round of Keytruda which was given at the end of July 2024. The rash is resolved. Status: Acute (13) Hyperglycemia, drug-induced: Problem comment: Historically patient is had borderline elevated blood sugars without diagnosis of diabetes. Now with high-dose steroids he will likely need treatment for hyperglycemia. Status: Acute Plan Continue in hospital for high-dose IV steroids and monitoring of toxicities from immune checkpoint inhibitor, Keytruda. Anticipate discharge to home in the next couple days if continue to improve. Total Time Spent Total Time Spent: Total time spent today is 65 minutes in coordination of care and discussing with patient and other providers and family ongoing evaluation management of ICI toxicity and side effects of prednisone Subjective Date Seen: 09/07/24 Interval history: Michael Dwyer is a 83 year old male who has recurrent bladder cancer for which he recently received the 1st medication of cycle 2 of padcev and pembrolizumab and subsequently developed fatigue and sleepiness, neck weakness, left eyelid ptosis, bilateral shoulder pain, and thigh and hip weakness. He denies abdominal pain or chest pain, but when I went in to see him for the 1st time, he noted that he started feeling short of breath just before I walked in and was notably heaving to get in the breath mid sentence while he was talking with me. 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 Recurrence was noted this year and he started cycle 1 of Enfortumab vedontin/ keytruda on 08/05/2024. He notes that cycle made him a little fatigued and he had a rash on his arms, but he otherwise did okay. He then started cycle 2 on 08/29/2024 with the keytruda dose. When he came in to the oncology clinic for the dose of padcev, but he came in a wheelchair pushed by his because he was too weak to stand up, which is totally new for him. He also was looking down with his head fallen forward because it was too much effort for him to lift his head up to look at the oncology nurse. There was concern for Keytruda induced myopathy and labs were drawn and he was sent to the emergency department. Labs done today in the oncology clinic reveal a creatinine of 2.1, BUN 35, AST 247, ALT 101, alkaline phosphatase 106, total bilirubin 1, white count 7.49, hemoglobin 12.5, ESR 53, total CK 3687, troponin I 0.29, CRP 3.3. The patient also tells me that his urine has been a bit darker since these symptoms started. He denies any fevers or chills. He denies headache, chest pain, chest discomfort, chest tightness. He he was not short of breath until a few min minutes before I saw him. By the time I was done examining him, he told me that he was already starting to feel less short of breath although he was still catching his breath in the middle of a sentence. 09/07/2024: Patient reports feeling quite a bit better today compared to yesterday. Feels like his neck muscles are better. He feels stronger and better able to walk. Not having any problems with breathing or swallowing. He is not having any chest pain. No fever. Exam Narrative: Exam Narrative: He is alert and appears in no distress. He gives his own history. He is oriented to his circumstances. Face is notable for mild drooping of the left eyelid compared to the right. Extraocular movements are full though he notes some blurriness ordered doubling of his vision at the extremes of lateral gaze. Otherwise conjugate gaze and intact visual ross. No other facial asymmetry. Oropharynx is normal with small airway. Neck is supple without mass or adenopathy. He reports the weakness in his neck causing him difficulty holding up is head is much improved though he still has some observed weakness in his neck. Respirations are clear to auscultation. Cardiovascular: S1, S2, regular rate and rhythm. No murmur gallop or rub. Abdomen: Bowel sounds active. Abdomen is soft without tenderness or mass. Upper extremities have relatively symmetric and full strength bilaterally. Testing of strength in lower extremities shows mild weakness, a little more on the right than the left, in all muscle groups tested. Bedside swallowing appears normal. Const: Vital Signs, click to edit/add: Vital Signs - 24 hr 09/06/24 14:38 09/06/24 14:59 09/06/24 15:00 Temperature 97.1 F L Pulse Rate 59 L 62 Pulse Rate [Pulse Oximeter] 70 Pulse Rate [Right Radial] Respiratory Rate 22 Blood Pressure 171/67 H Blood Pressure [Le ft Upper Arm] 156/73 H Blood Pressure [Ri ght Arm] Blood Pressure [Ri ght Upper Arm] Pulse Oximetry 97 98 97 Oxygen Delivery Me thod Room Air 09/06/24 15:01 09/06/24 15:02 09/06/24 15:15 Temperature Pulse Rate 66 65 65 Pulse Rate [Pulse Oximeter] Pulse Rate [Right Radial] Respiratory Rate Blood Pressure 150/80 H Blood Pressure [Le ft Upper Arm] Blood Pressure [Ri ght Arm] Blood Pressure [Ri ght Upper Arm] Pulse Oximetry 96 96 98 Oxygen Delivery Me thod 09/06/24 15:17 09/06/24 15:30 09/06/24 15:32 Temperature Pulse Rate 65 58 L 61 Pulse Rate [Pulse Oximeter] Pulse Rate [Right Radial] Respiratory Rate Blood Pressure 173/61 H 147/60 H Blood Pressure [Le ft Upper Arm] Blood Pressure [Ri ght Arm] Blood Pressure [Ri ght Upper Arm] Pulse Oximetry 98 98 96 Oxygen Delivery Me thod 09/06/24 15:45 09/06/24 15:47 09/06/24 15:48 Temperature Pulse Rate 66 65 68 Pulse Rate [Pulse Oximeter] Pulse Rate [Right Radial] Respiratory Rate Blood Pressure 152/67 H Blood Pressure [Le ft Upper Arm] Blood Pressure [Ri ght Arm] Blood Pressure [Ri ght Upper Arm] Pulse Oximetry 97 98 98 Oxygen Delivery Me thod 09/06/24 16:00 09/06/24 16:01 09/06/24 16:02 Temperature Pulse Rate 67 66 69 Pulse Rate [Pulse Oximeter] Pulse Rate [Right Radial] Respiratory Rate Blood Pressure 141/61 H Blood Pressure [Le ft Upper Arm] Blood Pressure [Ri ght Arm] Blood Pressure [Ri ght Upper Arm] Pulse Oximetry 97 97 97 Oxygen Delivery Me thod 09/06/24 16:15 09/06/24 16:16 09/06/24 16:17 Temperature Pulse Rate 64 67 73 Pulse Rate [Pulse Oximeter] Pulse Rate [Right Radial] Respiratory Rate Blood Pressure 143/62 H Blood Pressure [Le ft Upper Arm] Blood Pressure [Ri ght Arm] Blood Pressure [Ri ght Upper Arm] Pulse Oximetry 96 96 96 Oxygen Delivery Me thod 09/06/24 16:30 09/06/24 16:31 09/06/24 16:32 Temperature Pulse Rate 67 73 65 Pulse Rate [Pulse Oximeter] Pulse Rate [Right Radial] Respiratory Rate Blood Pressure 124/59 L Blood Pressure [Le ft Upper Arm] Blood Pressure [Ri ght Arm] Blood Pressure [Ri ght Upper Arm] Pulse Oximetry 94 95 95 Oxygen Delivery Me thod 09/06/24 16:45 09/06/24 16:47 09/06/24 17:00 Temperature Pulse Rate 69 72 76 Pulse Rate [Pulse Oximeter] Pulse Rate [Right Radial] Respiratory Rate Blood Pressure 156/65 H Blood Pressure [Le ft Upper Arm] Blood Pressure [Ri ght Arm] Blood Pressure [Ri ght Upper Arm] Pulse Oximetry 96 98 98 Oxygen Delivery Me thod 09/06/24 17:02 09/06/24 17:15 09/06/24 17:16 Temperature Pulse Rate 68 66 65 Pulse Rate [Pulse Oximeter] Pulse Rate [Right Radial] Respiratory Rate Blood Pressure 159/73 H 158/69 H Blood Pressure [Le ft Upper Arm] Blood Pressure [Ri ght Arm] Blood Pressure [Ri ght Upper Arm] Pulse Oximetry 98 96 97 Oxygen Delivery Me thod 09/06/24 17:17 09/06/24 18:08 09/06/24 19:41 Temperature 97.4 F L Pulse Rate 65 70 Pulse Rate [Pulse Oximeter] Pulse Rate [Right Radial] 86 Respiratory Rate 18 Blood Pressure Blood Pressure [Le ft Upper Arm] Blood Pressure [Ri ght Arm] 178/75 H Blood Pressure [Ri ght Upper Arm] Pulse Oximetry 98 99 Oxygen Delivery Me thod Room Air 09/06/24 20:00 09/06/24 20:41 09/06/24 20:41 Temperature 98 F Pulse Rate Pulse Rate [Pulse Oximeter] 68 Pulse Rate [Right Radial] 68 68 Respiratory Rate 20 Blood Pressure Blood Pressure [Le ft Upper Arm] Blood Pressure [Ri ght Arm] 160/90 H Blood Pressure [Ri ght Upper Arm] 160/90 H Pulse Oximetry 93 93 Oxygen Delivery Me thod Room Air 09/06/24 23:00 09/06/24 23:00 09/06/24 23:24 Temperature 96.4 F L Pulse Rate 62 Pulse Rate [Pulse Oximeter] Pulse Rate [Right Radial] 66 Respiratory Rate 16 16 Blood Pressure Blood Pressure [Le ft Upper Arm] Blood Pressure [Ri ght Arm] 158/70 H Blood Pressure [Ri ght Upper Arm] Pulse Oximetry 94 94 Oxygen Delivery Me thod CPAP CPAP 09/06/24 23:45 09/07/24 02:41 09/07/24 03:19 Temperature 97.1 F L Pulse Rate Pulse Rate [Pulse Oximeter] Pulse Rate [Right Radial] 66 62 62 Respiratory Rate 18 Blood Pressure Blood Pressure [Le ft Upper Arm] Blood Pressure [Ri ght Arm] 130/98 H Blood Pressure [Ri ght Upper Arm] Pulse Oximetry 96 Oxygen Delivery Me thod CPAP 09/07/24 07:16 09/07/24 07:52 09/07/24 07:52 Temperature 96.1 F L Pulse Rate 52 L Pulse Rate [Pulse Oximeter] Pulse Rate [Right Radial] 56 L Respiratory Rate 20 20 Blood Pressure Blood Pressure [Le ft Upper Arm] Blood Pressure [Ri ght Arm] 143/59 H Blood Pressure [Ri ght Upper Arm] Pulse Oximetry 94 94 Oxygen Delivery Me thod Room Air Room Air Documenting provider has reviewed patient's vital signs: yes Labs Labs: Laboratory Results - last 24 hr 09/06/24 09/06/24 09/07/24 15:35 20:52 06:00 WBC 8.83 RBC 3.90 L Hgb 11.9 L Hct 36.4 L MCV 93 MCH 31 MCHC 33 RDW Coeff of Comfort 15.0 Plt Count 176 Neut % (Auto) 88.0 H Lymph % (Auto) 9.7 L Victoria % (Auto) 1.1 Eos % (Auto) 0.0 Baso % (Auto) 0.0 Neut # (Auto) 7.80 H Lymph # (Auto) 0.90 Victoria # (Auto) 0.10 Eos # (Auto) 0.00 Baso # (Auto) 0.00 Abs Immat Gran (auto) 0.11 Imm/Tot Granulo (auto) 1.2 VBG pH 7.403 7.366 VBG pCO2 38 L 37 L VBG pO2 < 30.1 44.9 VBG HCO3 23 21 Sodium 139 Potassium 4.6 Chloride 112 Carbon Dioxide 23 Anion Gap 4 L BUN 34 H Creatinine 1.7 H Estimated Creat Clear 38.95 Estimated GFR 40 Glucose 160 H Uric Acid 8.2 Calcium 9.1 Total Bilirubin 0.6 Direct Bilirubin 0.3 AST 196 H ALT 95 H Alkaline Phosphatase 89 Total Creatine Kinase 2078 H Troponin I 0.24 H* 0.17 H* C-Reactive Protein 3.1 H NT-Pro-B Natriuret Pep 921 H Total Protein 6.0 Albumin 3.1 L Lab Acknowledgement 09/07/24 09:14 WBC RBC Hgb Hct MCV MCH MCHC RDW Coeff of Cmofort Plt Count Neut % (Auto) Lymph % (Auto) Victoria % (Auto) Eos % (Auto) Baso % (Auto) Neut # (Auto) Lymph # (Auto) Victoria # (Auto) Eos # (Auto) Baso # (Auto) Abs Immat Gran (auto) Imm/Tot Granulo (auto) VBG pH VBG pCO2 VBG pO2 VBG HCO3 Sodium Potassium Chloride Carbon Dioxide Anion Gap BUN Creatinine Estimated Creat Clear Estimated GFR Glucose Uric Acid Calcium Total Bilirubin Direct Bilirubin AST ALT Alkaline Phosphatase Total Creatine Kinase Troponin I C-Reactive Protein NT-Pro-B Natriuret Pep Total Protein Albumin Lab Acknowledgement Test Added
[2024-09-07] MEDS: HEPARIN 500 UNIT/5 ML SYRINGE IVF ×3 (11:30→13:52)
[2024-09-07] MEDS: SODIUM CHLORIDE 0.9 % (FLUSH) 10 ML SYRINGE IVF ×2 (11:30→13:52)
[2024-09-07] MEDS: PERFLUTREN LIPID MICROSPHERES 2 ML VIAL IVP (11:41)
--- NOTE | 2024-09-07 11:45 | PC.NURSE ---
Definity contrast given. Patient tolerated well. 2ml total given.
[2024-09-07] MEDS: METHYLPREDNISOLONE SOD SUCC 1,000 MG in 0.9 % SODIUM CHLORIDE 100 ml 100 ML 464 MG IVPB (12:06)
[2024-09-07 12:12] LABS: Hemoglobin A1C* 5.4 % (0-5.6)
[2024-09-07] MEDS: 0.9 % SODIUM CHLORIDE 250 ml IV (12:27)
[2024-09-07] MEDS: INSULIN NPH 100 UNIT/ML 10 UNIT SUBCUT (13:13)
--- NOTE | 2024-09-07 18:24 | PC.NURSE ---
The patient transferred via non emergent EMS to [facility] for a higher level of care. All belongings were sent with the patient or his family. Report was given to EMS staff
== END 2024-09-07 17:15 | disposition short-term general hospital (02) | DRG 545 ==
LOC: ED 17:16 → MEDSURG 17:24
PROVIDERS: Family Medicine; Admitting Provider Family Medicine; Emergency Provider Student in an Organized Health Care Education/Training Program; PCP Internal Medicine; Visit Provider Family Medicine
DX: M35.1 Other overlap syndromes (principal); G70.01 Myasthenia gravis with (acute) exacerbation; I40.8 Other acute myocarditis; M60.89 Other myositis, multiple sites; C67.9 Malignant neoplasm of bladder, unspecified; R53.83 Other fatigue; M62.81 Muscle weakness (generalized); R79.89 Other specified abnormal findings of blood chemistry; G47.33 Obstructive sleep apnea (adult) (pediatric); I12.9 Hypertensive chronic kidney disease with stage 1 through stage 4 chronic kidney disease, or unspecified chronic kidney disease; N18.9 Chronic kidney disease, unspecified; N17.9 Acute kidney failure, unspecified; E78.5 Hyperlipidemia, unspecified; Z99.89 Dependence on other enabling machines and devices; Z96.0 Presence of urogenital implants; Z85.850 Personal history of malignant neoplasm of thyroid
CPT/HCPCS: 36415; 36591; 71045; 80048; 80053; 80076; 81001; 82085; 82550; 82803; 82962; 83036; 83880; 84439; 84443; 84481; 84484; 84550; 85025; 85651; 86140; 87086; 93306; 94761; 97116; 97162; 97165; 97530; 99215; 99284; 99285; A9270; J1642; J2919; J7030; J7050; J7120; J7512; Q9957

== ENCOUNTER 2024-09-07 17:00 | Outpatient (CLI) | payer MEDICARE, SELFPAY | END 2024-09-07 17:01 | disposition home or self-care (01) | LOC: AMB 09-15 14:43 | PROVIDERS: PCP Internal Medicine; Visit Provider Family Medicine | DX: M60.9 Myositis, unspecified (principal); R79.89 Other specified abnormal findings of blood chemistry | CPT/HCPCS: A0425; A0427 ==

== ENCOUNTER 2024-09-15 18:58 | Emergency (ER) | payer MEDICARE, SELFPAY ==
--- OUTSIDE RECORDS SUMMARY | 2024-08-04 16:15 | XMS_ITS | Encounter Summary ---
Author Organization [facility] Address [address] [place] [address] Care Team Providers Care Hr Generalist Name Role Phone Unavailable Primary Care Provider Unavailabl e Reason for Visit * Reason Onset Date Comments Pre-visit Intake 08/04/2024 * Appointment Request (Routine) - Authorized Specialty Diagnoses / Procedures Referred By Amaya cook Referred To Contact Oncology Referral ID Status Reason Start Date Expiration Date V isits Requested Visits Authorized [id number] Authorized 08/04/2024 11/04/2025 1 1 Encounter Details Date Type Department Care Team (Latest Contact Info) Description 08/04/2024 4:15 PM CDT Clinical Communication Virtual Review in [address] [address] Pre-visit Intake Social History Tobacco Use Types Packs/Day Years Used Date Smoking Tobacco: Former Cigarettes 1 20 0 04/22/1959 - 04/22/1989 Passive Smoke Exposure: Past Smokeless Tobacco: Never Alcohol Use Standard Drinks/Week Comments Yes 6 (1 standard drink = 0.6 oz pur e alcohol) Light social drinker [facility] Utilities Answer Date Recorded In the past [...] How often do you attend chur or scientologist services? Patient declined 05/28/2022 Do you belong to any clubs o r organizations such as buddhism groups, unions, fraternal or athletic groups, or [...] care, and heating? Not very hard 09/05/2022 [facility] [place] of Occupat ional Health - Occupational Stress [...] your living situation today? I have a [facility] place to live 07/05/2024 Education Answer Date Recorded What is the highest level of school you have completed or the highest degree you have received? Bachelor's degree (e.g., BA, AB, BS) 05/16/2019 Sex and Gender Information Value Date Recorded Sex Assigned at Male 01/13/2020 10:41 AM CDT Legal Sex Male 3:35 PM RESEARCH PROGRAM COORDINATOR Gender Identity Male 04/11/2018 8:29 AM RESEARCH PROGRAM COORDINATOR Sexual Orientation Straight 04/11/2018 8: 29 AM RESEARCH PROGRAM COORDINATOR documented as of this encounter Plan of Treatment Upcoming Encounters Date Type Department Care Team (Late st Contact Info) Description 09/16/2024 7:10 AM CDT Appointment [facility] in [place], [place] [address] [place] [address] Tanya Herrmann P.A.-C. 200 [place] [phone] 09/16/2024 9:00 AM CDT Office Visit Department of Oncology in [place], [place] [address] [place] [phone] Tanya Herrmann P.A.-C. [address] [place] [phone] 09/22/2024 8:40 AM CDT Appointment Department of Laboratory Medicine and Pathology, [facility] in [place], [place] [address] [place] [phone] Tanya Herrmann P.A.-C. [address] [place] [phone] 09/22/2024 10:40 AM CDT Office Visit Department of Oncology in [place], [place] [address] [place] [phone] Holley Monsalve APRN, C.N.PLiliana [address] [place] [phone] 09/22/2024 11:20 AM CDT Office Visit Department of Oncology in [address] [phone] Izabella Garza M.D. [address] [place] [phone] 09/22/2024 1:00 PM CDT Comprehensive Visit Department of Cardiovascular Medicine in [place], [place] [address] [place] [phone] Tanya Dang APRN, C.N.P., D.N.P. [address] [place] [phone] 10/10/2024 2:30 PM CDT Clinical Communication Virtual Review in [place], [place] 200 [place] [phone] 10/11/2024 8:10 AM CDT Appointment Department of Laboratory Medicine [facility], [facility] in [place], [place] [address] [place] [phone] Soha Huggins P.A.-C. [address] [place] [phone] 10/11/2024 9:00 AM CDT Appointment Department of Radiology, [facility] in [place], [place] [address] [place] [address] Soha Huggins P.A.-C. [address] [place] [phone] 10/11/2024 3:40 PM CDT Office Visit Department of Oncology in [place], [place] [address] [place] [phone] Casimiro Chavez M.D., Ph.D. [address] [place] [phone] 11/22/2024 1:00 PM CDT Comprehensive Visit Department of Neurology in [place], [place] [address] [place] [phone] Sandy Nicholson M.D., Ph.D. [address] [place] [phone] documented as of this encounter Visit Diagnoses Not on filedocumented in this encounter
--- OUTSIDE RECORDS SUMMARY | 2024-08-05 13:20 | XMS_ITS | Encounter Summary ---
Author Organization [facility] Address [address] [place] [address] Care Team Providers Care Cloth Packer Name Role Phone Unavailable Primary Care Provider Unavailabl e Reason for Referral * Medication Prior Authorization - Authorized Specialty Diagnoses / Procedures Referred By Amaya cook Referred To Contact Diagnoses Malignant Neoplasm Of Bladder (HCC) Secondary Malignant Neoplasm Lymph Node (HCC) Soha Huggins P.A.-C. [address] [place] [phone] Phone: tel: fax: Referral ID Status Reason Start Date Expiration Date V isits Requested Visits Authorized [id number] Authorized 05/11/2024 08/09/2025 1 1 Reason for Visit * Episode Based Medications (Routine) - Authorized Specialty Diagnoses / Procedures Referred By Amaya cook Referred To Contact Diagnoses Malignant Neoplasm Of Bladder (HCC) Procedures ND ONDANSETRON HCL INJECTION ND PEMBROLIZUMAB INJ ND INJ ENFORT VEDO-EJFV 0.25MG Casimiro Chavez M.D., Ph.D. [address] [place] [phone] Phone: tel: fax: Casimiro Chavez M.D., Ph.D. 200 [place] [address] Phone: tel: fax: Referral ID Status Reason Start Date Expiration Date V isits Requested Visits Authorized [id number] Authorized 07/18/2024 10/18/2025 48 48 Encounter Details Date Type Department Care Team (Late st Contact Info) Description 08/05/2024 1:20 PM CDT Office Visit Department of Oncology in [place], [place] [address] [place] [address] Soha Huggins P.A.-C. [address] [place] [phone] Secondary Malignant Neoplasm Lymph Node (HCC) (Primary Dx); Malignant Neoplasm Of Bladder (HCC) Social History Tobacco Use Types Packs/Day Years Used Date Smoking Tobacco: Former Cigarettes 1 20 0 04/22/1959 - 04/22/1989 Passive Smoke Exposure: Past Smokeless Tobacco: Never Alcohol Use Standard Drinks/Week Comments Yes 6 (1 standard drink = 0.6 oz pur e alcohol) Light social drinker [facility] Utilities Answer Date Recorded In the past 12 months has [employer], gas, oil, or water [employer] threatened to shut off services in your [...] How often do you attend chur or anabaptism services? Patient declined 05/28/2022 Do you belong to any clubs o r organizations such as oriental orthodox groups, unions, fraternal or athletic groups, or [...] care, and heating? Not very hard 09/05/2022 [facility] - Occupational [...] your living situation today? I have a [facility] place to live 07/05/2024 Education Answer Date Recorded What is the highest level of school you have completed or the highest degree you have received? 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 Gender Identity Male 04/11/2018 8:29 AM METAL CNC OPERATOR Sexual Orientation Straight 04/11/2018 8: 29 AM METAL CNC OPERATOR documented as of this encounter Last Filed Vital Signs Vital Sign Reading Time Taken Comments Blood Pressure 146/66 08/05/2024 1:09 PM CDT Pulse 62 08/05/2024 1:09 PM CDT Temperature 36.3 C (97.3 F) 08/05/2024 1:09 PM CDT Respiratory Rate - - Oxygen Saturation 96% 08/05/2024 1:09 PM CDT Inhaled Oxygen Concentration - - Weight 129 kg (283 lb 4.7 oz) 08/05/2024 1:09 PM CDT Height 183.1 cm (6' 0.09) 08/05/2024 1:09 PM CD T Body Mass Index 38.33 08/05/2024 1:09 PM CDT documented in this encounter Progress Notes * Soha Huggins, PLilianaA.Elie. - 08/05/2024 1:20 PM CDT Images from the original note were not included. OCAL ONCOLOGIST: Establishing at [facility] CHIEF COMPLAINT Primary responsible: Casimiro Chavez M.D., Ph.D. Reason for Visit: Follow up SUBJECTIVE HISTORY OF PRESENT ILLNESS Michael Dwyer is a 83 y.o. male with a past medical history significant for recurrent metastatic urothelial carcinoma who is seen in clinic for follow-up. Patient oncologic history is as follows, updated by me to reflect interim changes: Oncology History Overview Note May 29, 2011 radical cystoprostatectomy with ileal conduit urinary diversion for multifocal urothelial carcinoma in-situ pTis,N3 () . Received 6 cycles adjuvant cisplatin and gemcitabine. September 2019, inflammatory thickening were noted on the upper tracts and biopsy was benign. June 2024 CTU progression of marked changes of the left kidney and ureter. Increasing nodular enhancement of the distal left ureter extending 5 cm proximal to the anastomosis. Multiple enlarged upper left retroperitoneal lymph nodes, the largest measuring 2.8 x [address] metastatic urothelialcancer Malignant Neoplasm Of Bladder (HCC) 07/12/2024 Initial Diagnosis Malignant Neoplasm Of Bladder (HCC) 08/05/2024 - Chemotherapy Enfortumab vedotin-ejfv / Pembrolizumab Start Date: 08/05/2024 (Planned) INTERVAL HISTORY Mr. Dwyer was seen in follow up accompanied by his . He is ready to start treatment today. We reviewed medication side effects in detail. We also reviewed schedule, monitoring and restaging evaluation. He is anticipated to establish care in [place] for subsequent cycles. SYSTEMS REVIEW All 12 systems reviewed and negative, see HPI for pertinent positives. PMH/PSH/Social History and Family History Reviewed and available in the EMR. Iron deficiency Hypertension Obesity Hyperlipidemia Bladder cancer, as noted above VITAL SIGNS Pulse 62, blood pressure 146/66, temp 36.3?? OBJECTIVE PHYSICAL EXAMINATION Constitutional:Michael Dwyer is oriented to person, place, and time. NAD, non toxic appearing. ECOG1 Pulmonary/Chest: No labored breathing Neurological: Mood and affect are normal Skin: No rash noted LABS/IMAGING I reviewed the pertinent laboratory and other diagnostic data. I reviewed the imaging studies and agree with the interpretation as recorded. CT Lymph Node Biopsy Result Date: 07/08/2024 Impression: CT-guided lymph node biopsy NR Assessment & Plan #1 Malignant Neoplasm Of Bladder (HCC) #2 Peripheral Neuropathy Overview: Oncologic history summary: 1) 05/29/2011: Cystoprostatectomy for multifocal urothelial carcinoma pTis N3 (). Underwent 6 cycles adjuvant gem/cis. 2) 06/2024: Distal left ureteral thickening and left retroperitoneal lymphadenopathy. 06/18/2024: LN biopsy showed urothelial carcinoma. It was a pleasure seeing Mr. Dwyer in follow up accompanied by his . He is planned to start enfortumab vedotin and pembrolizumab today, cycle 1 day 1 today. He has an appointment with local oncologist on August 15 with anticipated transitioned of cycle 2 locally. He will contact us with this information and we will cancel cycle 2 if he is scheduled locally. I have sent antinausea, Atarax and triamcinolone cream to his local pharmacy. We reviewed side effects of immunotherapy in detail as well as enfortumab vedotin. He has our contact information. Additionally, he is enrolled in [employer] study Plan: Proceed with cycle 1 day 1 enfortumab vedotin pembrolizumab Administer 1 L IV fluids cycle 1, day 1 and day 8 RTC in 3 weeks for cycle 2 -- he may be establishing care locally for cycle 2, if able to be coordinated, will cancel cycle 2 in MCR Anticipate restaging after cycle 3 -- orders placed PATIENT EDUCATION Patient ready to learn, no apparent learning barriers were identified; learning preferences includelistening. Explained diagnosis and treatment plan; patient expressed understanding of the content. Soha Huggins P.A.-C. documented in this encounter Plan of Treatment Upcoming Encounters Date Type Department Care Team (Late st Contact Info) Description 09/16/2024 7:10 AM CDT Appointment Department of Laboratory Medicine and Pathology, [facility], in [place], [place] [address] [place] [phone] Tanya Herrmann P.A.-C. [address] [place] [phone] 09/16/2024 9:00 AM CDT Office Visit Department of Oncology in [place], [place] [address] [place] [phone] Tanya Herrmann P.A.-C. [address] [place] [phone] 09/22/2024 8:40 AM CDT Appointment Department of Laboratory Medicine and Pathology, [facility], in [place], [place] [address] [place] [phone] Tanya Herrmann P.A.-C. [address] [place] [phone] 09/22/2024 10:40 AM CDT Office Visit Department of Oncology in [place], [place] [address] [place] [phone] Holley Monsalve APRN, C.N.P. [address] [place] [phone] 09/22/2024 11:20 AM CDT Office Visit Department of Oncology in [address] [phone] Izabella Garza M.D. [address] [place] [phone] 09/22/2024 1:00 PM CDT Comprehensive Visit Department of Cardiovascular Medicine in [address] [phone] Tanya Dang APRN, C.N.P., D.N.P. [address] [place] [phone] 10/10/2024 2:30 PM CDT Clinical Communication Virtual Review in [place], [place] 200 [place] [phone] 10/11/2024 8:10 AM CDT Appointment Department of Laboratory Medicine and Pathology, [facility], in [address] [phone] Soha Huggins P.A.-CLiliana [address] [place] [phone] 10/11/2024 9:00 AM CDT Appointment Department of Radiology, [facility], in [place], [place] [address] [place] [phone] Soha Huggins P.A.-C. [address] [place] [phone] 10/11/2024 3:40 PM CDT Office Visit Department of Oncology in [place], [place] [address] [place] [phone] Casimiro Chavez M.D., Ph.D. [address] [place] [phone] 11/22/2024 1:00 PM CDT Comprehensive Visit Department of Neurology in [place], [place] [address] [place] [phone] Sandy Nicholson M.D., Ph.D. [address] [place] [phone] documented as of this encounter Visit Diagnoses Diagnosis Secondary Malignant Neoplasm Lymph Node (HCC)- Primary Malignant Neoplasm Of Bladder (HCC) documented in this encounter
--- OUTSIDE RECORDS SUMMARY | 2024-08-05 14:40 | XMS_ITS | Encounter Summary ---
Author Organization [facility] Address [address] [place] [address] Care Team Providers Care Oil Dispenser Name Role Phone Unavailable Primary Care Provider Unavailabl e Reason for Referral * Outpatient (Routine) - Authorized Specialty Diagnoses / Procedures Referred By Amaya cook Referred To Contact Oncology Soha Huggins P.A.-C. [address] [place] [phone] Phone: tel: fax: [facility] Referral ID Status Reason Start Date Expiration Date V isits Requested Visits Authorized [id number] Authorized 08/05/2024 02/04/2026 1 1 Scheduling Instructions Robertson or Bhavna * MRI/CAT/PET Scan (Routine) - Authorized Specialty Diagnoses / Procedures Referred By Amaya cook Referred To Contact Radiology Diagnoses Malignant Neoplasm Of Bladder (HCC) Procedures CT Urogram with IV Contrast Soha Huggins P.A.-C. 200 [place] [address] Phone: tel: fax: [facility] Referral ID Status Reason Start Date Expiration Date V isits Requested Visits Authorized [id number] Authorized 08/05/2024 11/05/2025 1 1 * MRI/CAT/PET Scan (Routine) - Authorized Specialty Diagnoses / Procedures Referred By Amaya cook Referred To Contact Radiology Diagnoses Malignant Neoplasm Of Bladder (HCC) Procedures CT Chest with IV Contrast Soha Huggins P.A.-C. [address] [place] [phone] Phone: tel: fax: [facility] Referral ID Status Reason Start Date Expiration Date V isits Requested Visits Authorized [id number] Authorized 08/05/2024 11/05/2025 1 1 Reason for Visit * Episode Based Medications (Routine) - Authorized Specialty Diagnoses / Procedures Referred By Amaya cook Referred To Contact Diagnoses Malignant Neoplasm Of Bladder (HCC) Procedures ID ONDANSETRON HCL INJECTION ID PEMBROLIZUMAB INJ ID INJ ENFORT VEDO-EJFV 0.25MG Casimiro Chavez M.D., Ph.D. [address] [place] [phone] Phone: tel: fax: Casimiro Chavez M.D., Ph.D. [address] [place] [phone] Phone: tel: fax: Referral ID Status Reason Start Date Expiration Date V isits Requested Visits Authorized [id number] Authorized 07/18/2024 10/18/2025 48 48 Encounter Details Date Type Department Care Team (Late st Contact Info) Description 08/05/2024 2:40 PM CDT Education Department of Oncology in [place], [place] [address] [place] [phone] Casimiro Chavez M.D., Ph.D. [address] [place], [place] [phone] Soha Huggins P.A.-C. [address] [place] [phone] Malignant Neoplasm Of Bladder (HCC) Social History Tobacco Use Types Packs/Day Years Used Date Smoking Tobacco: Former Cigarettes 1 20 0 04/22/1959 - 04/22/1989 Passive Smoke Exposure: Past Smokeless Tobacco: Never Alcohol Use Standard Drinks/Week Comments Yes 6 (1 standard drink = 0.6 oz pur e alcohol) Light social drinker [facility] Utilities Answer Date Recorded In the past 12 months has e [employer] gas, oil, or water [employer] threatened to shut off services in your [...] week 05/28/2022 How often do you attend [facility] or cheondoism services? Patient declined 05/28/2022 Do you belong [...] care, and heating? Not very hard 09/05/2022 [facility] - [facility] Questionnaire Answer Date Recorded [...] money to buy more. Never true 07/06/19 Within the past 12 months, t he [...] your living situation today? I have a [facility] place to live 07/05/2024 Education Answer Date Recorded What is the highest level of school you have completed or the highest degree you have received? Bachelor's degree (e.g., BA, AB, BS) 05/16/2019 Sex and Gender Information Value Date Recorded Sex Assigned at Male 01/13/2020 10:41 AM CDT Legal Sex Male 3:35 PM DISPLAY DECORATOR Gender Identity Male 04/11/2018 8:29 AM DISPLAY DECORATOR Sexual Orientation Straight 04/11/2018 8: 29 AM DISPLAY DECORATOR documented as of this encounter Progress Notes * Vanessa Hayes R.N. - 08/05/2024 2:40 PM CDT Cancer Treatment Nurse Education Visit REASON FOR VISIT Met with Michael Dwyer for cancer treatment education: enfortumab-vedotin and pembrolizumab for bladder cancer Primary Oncologist Dr. Chavez Oncology History Oncology History Overview Note May 29, 2011 [...] vedotin-ejfv / Pembrolizumab Start Date: 08/05/2024 (Planned) I met Mr. Dwyer and his , Luz to discuss cancer treatment education. He will receive Cycle 1 Day 1 of enfortumab-vedotin and pembrolizumab today. We discussed treatment outline consisting of enfortumab-vedotin and pembrolizumab. Mr. Dwyer understands the potential adverse effects, red flag symptoms to report and care team contact information. He will abide by home safety precautions. Labs meet parameters to continue with therapy as scheduled. Plan Mr. Dwyer will receive Cycle 1 Day 1 enfortumab-vedotin and pembrolizumab today. He will return on 08/12/24 for Cycle 1 Day 8. He has a consult on 08/15/24 with oncologist at [facility]. Further discussion regarding transfer of care following consult and chair availability for infusion scheduling. Mr. Dwyer was encouraged to contact our team at any time with questions or concerns. He and Luz expressed understanding and agreement with the plan. They deny further questions or concerns at this time. ASSESSMENT/PLAN Patient education provided per the cancer treatment letter attached in encounters. Printed materials provided to patient per Education Tab. Answered questions. Patient verbalized understanding and voiced appreciation for education. documented in this encounter Miscellaneous Notes * Addendum Note - Vanessa Hayes R.N. - 08/05/2024 2:40 PM CDTAddended by: VANESSA HAYES on: 08/05/2024 03:29 PM Modules accepted: Level of Service documented in this encounter Plan of Treatment Upcoming Encounters Date Type Department Care Team (Late st Contact Info) Description 09/16/2024 7:10 AM CDT Appointment Department of Laboratory Medicine and Pathology, [place], [place] [address] [place] [phone] Tanya Herrmann P.A.-C. [address] [place] [phone] 09/16/2024 9:00 AM CDT Office Visit Department of Oncology in [place], [place] [address] [place] [phone] Tanya Herrmann P.A.-C. [address] [place] [phone] 09/22/2024 8:40 AM CDT Appointment Department of Laboratory Medicine and Pathology, [facility] in [place], [place] [address] [place] [phone] Tanya Herrmann P.A.-C. [address] [place] [phone] 09/22/2024 10:40 AM CDT Office Visit Department of Oncology in [place], [place] [address] [place] [phone] Holley Monsalve APRN, C.N.P. [address] [place] [phone] 09/22/2024 11:20 AM CDT Office Visit Department of Oncology in [place], [place] [address] [place] [phone] Izabella Garza M.D. [address] [place] [phone] 09/22/2024 1:00 PM CDT Comprehensive Visit Department of Cardiovascular Medicine in [address] [phone] Tanya Dang APRN, C.N.P., D.N.P. [address] [place] [phone] 10/10/2024 2:30 PM CDT Clinical Communication Virtual Review in [place], [place] 200 [place] [phone] 10/11/2024 8:10 AM CDT Appointment Department of Laboratory Medicine and Pathology, [facility] in [place], [place] [address] [place] [phone] Soha Huggins P.A.-C. [address] [place] [phone] 10/11/2024 9:00 AM CDT Appointment Department of Radiology, [facility], in [place], [place] [address] [place] [phone] SpSoha jacobs P.A.-C. [address] [place] [phone] 10/11/2024 3:40 PM CDT Office Visit Department of Oncology in [place], [place] [address] [place] [phone] Casimiro Chavez M.D., Ph.D. [address] [place] [phone] 11/22/2024 1:00 PM CDT Comprehensive Visit Department of Neurology in [place], [place] [address] [place] [phone] Sandy Nicholson M.D., Ph.D. [address] [place] [phone] Scheduled Orders Name Type Priority Associated Diagnoses Order Schedule CT Chest with IV Contrast Imaging RAD - Routine (most inpatients and all outpatients) Malignant Neoplasm Of Bladder (HCC) Expected: 10/03/2024, Expires: 11/04/2025 CT Urogram with IV Contrast Imaging RAD - Routine (most inpatients and all outpatients) Malignant Neoplasm Of Bladder (HCC) Expected: 10/03/2024, Expires: 11/04/2025 Comprehensive Metabolic Panel Lab Routine Malignant Neoplasm Of Bladder (HCC) Expected: 10/03/2024, Expires: 08/05/2025 CBC with Differential, Blood Lab Routine Malignant Neoplasm Of Bladder (HCC) Expected: 10/03/2024, Expires: 11/04/2025 Scheduled Referrals Name Type Priority Associated Diagnoses Orde r Schedule Oncology office visit (clinic) Outpatient Referral Routine Expected: 10/03/2024, Expires: 11/04/2025 documented as of this encounter Visit Diagnoses Diagnosis Malignant Neoplasm Of Bladder (HCC) documented in this encounter Additional Health Concerns Infection Onset Date Last Indicated Resolved Time Protective Environment 08/05/2024 08/05/202409/12 8:32 PM CDT documented as of this encounter
--- OUTSIDE RECORDS SUMMARY | 2024-08-05 15:30 | XMS_ITS | Encounter Summary ---
Author Organization [facility] Address [address] [place] [address] Care Team Providers Care Sap Gatherer Name Role Phone Unavailable Primary Care Provider Unavailabl e Reason for Visit * Episode Based Medications (Routine) - Authorized Specialty Diagnoses / Procedures Referred By Contac t Referred To Contact Diagnoses Malignant Neoplasm Of Bladder (HCC) Procedures CT ONDANSETRON HCL INJECTION CT PEMBROLIZUMAB INJ CT INJ ENFORT VEDO-EJFV 0.25MG Casimiro Chavez M.D., Ph.D. [address] [place] [phone] Phone: tel: fax: Casimiro Chavez M.D., Ph.D. [address] [place] [phone] Phone: tel: fax: Referral ID Status Reason Start Date Expiration Date V isits Requested Visits Authorized [id number] Authorized 07/18/2024 10/18/2025 48 48 Encounter Details Date Type Department Care Team (Late st Contact Info) Description 08/05/2024 3:30 PM CDT Infusion Department of Oncology in [place], [place] [address] [place] [phone] Casimiro Chavez M.D., Ph.D. [address] [place] [phone] Malignant Neoplasm Of Bladder (HCC) (Primary Dx) Social History Tobacco Use Types Packs/Day Years Used Date Smoking Tobacco: Former Cigarettes 1 20 0 04/22/1959 - 04/22/1989 Passive Smoke Exposure: Past Smokeless Tobacco: Never Alcohol Use Standard Drinks/Week Comments Yes 6 (1 standard drink = 0.6 oz pur e alcohol) Light social drinker [facility] Utilities Answer Date Recorded In the [...] week 05/28/2022 How often do you attend [facility] or lutheran services? Patient declined 05/28/2022 Do you belong to any clubs o r organizations such as faith groups, unions, fraternal or athletic groups, or [...] care, and heating? 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 [address] [place] [phone] 09/16/2024 9:00 AM CDT Office Visit Department of Oncology in [address] [phone] Tanya Herrmann P.A.-C. [address] [place] [phone] 09/22/2024 8:40 AM CDT Appointment Department of Laboratory Medicine and Pathology, [facility] in [place], [place] [address] [place] [phone] Tanya Herrmann P.A.-C. [address] [place] [phone] 09/22/2024 10:40 AM CDT Office Visit Department of Oncology in [place], [place] [address] [place] [phone] Holley Monsalve, JALEESA, C.N.P. [address] [place] [phone] 09/22/2024 11:20 AM CDT Office Visit Department of Oncology in [place], [place] [address] [place] [phone] Izabella Garza M.D. [address] [place] [phone] 09/22/2024 1:00 PM CDT Comprehensive Visit Department of Cardiovascular Medicine in [place], [place] [address] [place] [phone] Tanya Dang APRN, C.N.P., D.N.P. [address] [place] [phone] 10/10/2024 2:30 PM CDT Clinical Communication Virtual Review in [place], [place] 200 [place] [address] 10/11/2024 8:10 AM CDT Appointment Department of Laboratory Medicine and Pathology, [facility] in [place], [place] [address] [place] [phone] Soha Huggins, P.A.-C. [address] [place] [phone] 10/11/2024 9:00 AM CDT Appointment Department of Radiology, [facility], in [place], [place] [address] [place] [phone] Soha Huggins, Kat.A.-CLiliana [address] [place] [phone] 10/11/2024 3:40 PM CDT Office Visit Department of Oncology in [address] [phone] Casimiro Chavez M.D., Ph.D. [address] [place] [phone] 11/22/2024 1:00 PM CDT Comprehensive Visit Department of Neurology in [place], [place] [address] [place] [phone] Sandy Nicholson M.D., Ph.D. 200 [place] [phone] documented as of this encounter Visit Diagnoses [...]
--- OUTSIDE RECORDS SUMMARY | 2024-08-12 10:00 | XMS_ITS | Encounter Summary ---
Author Organization [facility] Address [address] [place] [address] Care Team Providers Care Clay Miner Name Role Phone Unavailable Primary Care Provider Unavailabl e Reason for Visit * Episode Based Medications (Routine) - Authorized Specialty Diagnoses / Procedures Referred By Contac t Referred To Contact Diagnoses Malignant Neoplasm Of Bladder (HCC) Procedures CO ONDANSETRON HCL INJECTION CO PEMBROLIZUMAB INJ CO INJ ENFORT VEDO-EJFV 0.25MG Casimiro Chavez M.D., Ph.D. [address] [place] [phone] Phone: tel: fax: Casimiro Chavez M.D., Ph.D. [address] [place] [phone] Phone: tel: fax: Referral ID Status Reason Start Date Expiration Date V isits Requested Visits Authorized [id number] Authorized 07/18/2024 10/18/2025 48 48 Encounter Details Date Type Department Care Team (Late st Contact Info) Description 08/12/2024 10:00 AM CDT Infusion Department of Oncology in [place], [place] [address] [place] [phone] Casimiro Chavez M.D., Ph.D. [address] [place] [phone] Malignant Neoplasm Of Bladder (HCC) (Primary Dx) Social History Tobacco Use Types Packs/Day Years Used Date Smoking Tobacco: Former Cigarettes 1 20 0 04/22/1959 - 04/22/1989 Passive Smoke Exposure: Past Smokeless Tobacco: Never Alcohol Use Standard Drinks/Week Comments Yes 6 (1 standard drink = 0.6 oz pur e alcohol) Light social drinker [facility] Utilities Answer Date Recorded In the [...] week 05/28/2022 How often do you attend [facility] or yarsanism services? Patient declined 05/28/2022 Do you belong to any clubs o r organizations such as jew groups, unions, fraternal or athletic groups, or [...] care, and heating? Not very hard 09/05/2022 [facility] [place] of Occupat ional [facility] - Occupational Stress Questionnaire Answer Date Recorded [...] AM CDT Legal Sex Male 3:35 PM DISPUTE COORDINATOR Gender Identity Male 04/11/2018 8:29 AM DISPUTE COORDINATOR Sexual Orientation Straight 04/11/2018 8: 29 AM DISPUTE COORDINATOR documented as of this encounter Last Filed Vital Signs Vital Sign Reading Time Taken Comments Blood Pressure 154/54 08/12/2024 9:57 AM CDT Pulse 54 08/12/2024 9:57 AM CDT Temperature 36.6 C (97.9 F) 08/12/2024 9:57 AM CDT Respiratory Rate - - Oxygen Saturation - - Inhaled Oxygen Concentration - - Weight 130 kg (287 lb 11.2 oz) 08/12/2024 9:57 A M CDT Height - - Body Mass Index 38.93 08/05/2024 1:09 PM CDT documented in this encounter Plan of Treatment Upcoming Encounters Date Type Department Care Team (Late st Contact Info) Description 09/16/2024 7:10 AM CDT Appointment Department of Laboratory Medicine and Pathology, [place], [place] [address] [place] [phone] Tanya Herrmann P.A.-C. [address] [place] [phone] 09/16/2024 9:00 AM CDT Office Visit Department of Oncology in [place], [place] [address] [place] [phone] Tanya Herrmann P.A.-C. [address] [place] [phone] 09/22/2024 8:40 AM CDT Appointment Department of Laboratory Medicine and Pathology, [place], [place] [address] [place] [phone] Tanya Herrmann P.A.-C. [address] [place] [phone] 09/22/2024 10:40 AM CDT Office Visit Department of Oncology in [place], [place] [address] [place] [phone] Holley Monsalve APRN, C.N.P. [address] [place] [phone] 09/22/2024 11:20 AM CDT Office Visit Department of Oncology in [place], [place] [address] [place] [phone] Izabella Garza M.D. [address] [place] [phone] 09/22/2024 1:00 PM CDT Comprehensive Visit Department of Cardiovascular Medicine in [place], [place] [address] [place] [phone] Tanya Dang APRN, C.N.P., D.N.P. [address] [place] [phone] 10/10/2024 2:30 PM CDT Clinical Communication Virtual Review in [place], [place] 200 [place] [address] 10/11/2024 8:10 AM CDT Appointment Department of Laboratory Medicine and Pathology, [facility] in [place], [place] [address] [place] [phone] Soha Huggins, P.A.-C. [address] [place] [phone] 10/11/2024 9:00 AM CDT Appointment Department of Radiology, [facility], in [place], [place] [address] [place] [phone] Soha Huggins, Kat.A.-C. [address] [place] [phone] 10/11/2024 3:40 PM CDT Office Visit Department of Oncology in [place], [place] [address] [place] [phone] Casimiro Chavez M.D., Ph.D. [address] [place] [phone] 11/22/2024 1:00 PM CDT Comprehensive Visit Department of Neurology in [place], [place] [address] [place] [phone] Sandy Nicholson M.D., Ph.D. [address] [place] [phone] documented as of this encounter Visit Diagnoses [...] mL/hr, Administer over 30 Minutes, Once, On Thu08/12/24 at 1045, For 1 dose, Do NOT shake. Handle with care. PROTECT FROM LIGHT.Indications:Malignant Neoplasm Of Bladder (HCC) New Bag 08/12/2024 11:13 AM CDT 125 mg 245 mL/hr NaCl 0.9 % bolus 1,000 mL 1,000 mL, intravenous, at 1,000 mL/hr, Administer over 1 Hours, Once, On Thu08/12/24 at 1030, For 1 doseIndications:Malignant Neoplasm Of Bladder (HCC) New Bag 08/12/2024 10:24 AM CDT 1,000 mL 1000 mL/hr ondansetron (PF) injection 8 mg (Zofran) 8 mg, intravenous, Once, On Thu08/12/24 at 1015, For 1 doseIndications:Malignant Neoplasm Of Bladder (HCC) Given 08/12/2024 10:22 AM CDT 8 mg sodium chloride 0.9 % injection 10 mL 10 mL, intravenous, As needed, line care, Starting on Thu08/12/24 at 1002, Prior to blood sampling, post blood transfusion, or post blood sampling.Indications:Malign ant Neoplasm Of Bladder (HCC) Given 08/12/2024 11:43 AM CDT 20 mL documented in this encounter Additional Health Concerns Infection Onset Date Last Indicated Resolved Time Protective Environment 08/05/2024 08/05/202409/12 8:32 PM CDT documented as of this encounter
--- OUTSIDE RECORDS SUMMARY | 2024-09-07 18:42 | XMS_ITS | Encounter Summary ---
Author Organization [facility] Address [address] [place] [id number] Care Team Providers Care Veterinary X Ray Operator Name Role Phone Unavailable Primary Care Provider Unavailabl e Reason for Referral * Outpatient (Routine) - Authorized Specialty Diagnoses / Procedures Referred By Amaya cook Referred To Contact Radiology Diagnoses Personal History Of Malignant Neoplasm Of Bladder Procedures IR Nephrostomy Tube Placement Left Lulu Perez M.D. [address] [place] [address] Phone: tel: fax: [facility] Referral ID Status Reason Start Date Expiration Date V isits Requested Visits Authorized [id number] Authorized 09/15/2024 12/16/2025 1 1 * Specialty Diagnoses / Procedures Referred By Amaya cook Referred To Contact Diagnoses Personal History Of Malignant Neoplasm Of Bladder Lulu Perez M.D. [address] [place] [address] Phone: tel: fax: [facility] Referral ID Status Reason Start Date Expiration Date Visits Re quested Visits Authorized * Outpatient (Routine) - Authorized Specialty Diagnoses / Procedures Referred By Contact Referred To Contact Radiology / Interventional Radiology Diagnoses Personal History Of Malignant Neoplasm Of Bladder Lulu Perez M.D. [address] [place] [address] Phone: tel: fax: [facility] Referral ID Status Reason Start Date Expiration Date V isits Requested Visits Authorized [id number] Authorized 09/15/2024 03/17/2026 1 1 * Outpatient (Routine) - Authorized Specialty Diagnoses / Procedures Referred By Contac t Referred To Contact Urology Lulu Perez M.D. [address] [place] [phone] Phone: tel: fax: Carol Avila APRN, C.N.P., D.N.P., M.S. [address] [place] [phone] Phone: tel: fax: Referral ID Status Reason Start Date Expiration Date V isits Requested Visits Authorized [id number] Authorized 09/15/2024 03/17/2026 1 1 * Outpatient (Routine) - Authorized Specialty Diagnoses / Procedures Referred By Contac t Referred To Contact Oncology Tanya Herrmann P.A.-C. [address] [place] [phone] Phone: tel: fax: [facility] Referral ID Status Reason Start Date Expiration Date V isits Requested Visits Authorized [id number] Authorized 09/13/2024 03/15/2026 1 1 * Outpatient (Routine) - Authorized Specialty Diagnoses / Procedures Referred By Contac t Referred To Contact Neurology Adriana Dolan M.D., M.S. [address] [place] [phone] Phone: tel: fax: Sandy Nicholson M.D., Ph.D. [address] [place] [phone] Phone: tel: fax: Referral ID Status Reason Start Date Expiration Date V isits Requested Visits Authorized [id number] Authorized 09/13/2024 03/15/2026 1 1 Reason for Visit * Auth/Cert Specialty Diagnoses / Procedures Referred By Amaya t Referred To Contact Diagnoses Malignant neoplasm of bladder, unspecified (HCC) Urothelial cancer Procedures [place] ENDO URETER URETEROST W FULG ANTEGRADE URETEROSCOPY WITH LASER ABLATION TUMOR Referral ID Status Reason Start Date Expiration Date Visits Re quested Visits Authorized [id number] 1 1 Encounter Details Date Type Department Care Team (Latest Contact Info) Description 09/07/2024 6:42 PM CDT - 09/15/2024 3:36 PM CDT Hospital Encounter [facility], [facility], Fifth Floor [address] [place] [phone] Zeke Trejo M.D., M.P.H. [address] [place] [phone] Garrison Gardner M.D. [address] [place] [phone] Miko Douglas M.D. [address] [place] [phone] Decline Functional Status [R53.81] (Primary Dx); Myositis [M60.9]; Myositis; Malignant Neoplasm Of Bladder (HCC); 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 Or Unspecified Chronic Kidney Disease; Personal History Of Malignant Neoplasm Of Bladder; Corticosteroid Treatment Group Home Systemic Discharge Disposition: Home or Self Care Social History Tobacco Use Types Packs/Day Years Used Date Smoking Tobacco: Former Cigarettes 1 20 0 04/22/1959 - 04/22/1989 Passive Smoke Exposure: Past Smokeless Tobacco: Never Alcohol Use Standard Drinks/Week Comments Yes 6 (1 standard drink = 0.6 oz pur e alcohol) Light social drinker [facility] Utilities Answer Date Recorded In the past 12 months has e [employer], [employer], oil, or water [employer] threatened to shut off services in your home? No 09/07/2024 Humiliation, Afraid, Rape, and Kick questionnair e Answer Date Recorded Within the last year, have y ou been afraid of your partner or ex-partner? No 09/07/2024 Within the last year, have y ou been humiliated or emotionally abused in other ways by your partner or ex-partner? No Within the last year, have y ou been kicked, hit, slapped, or otherwise physically hurt by your partner or ex-partner? No 09/07/2024 Within the last year, have y ou been raped or forced to have any kind of sexual activity by your partner or ex-partner? No 09/07/2024 Social Connection and Isolation Panel [NHANES] A nswer Date Recorded In a typical week, how many times do you talk on the phone with family, friends, or neighbors? Once a week 05/28/19 How often do you get togethe r with friends or relatives? Twice a week 05/28/2022 How often do you attend [facility] or roman catholic services? Patient declined 05/28/2022 Do you belong to any clubs o r organizations such as restorationism groups, unions, fraternal or athletic groups, or [...] care, and heating? Not very hard 09/05/2022 [facility] Occupational Stress Questionnaire Answer Date [...] the money to buy more. Never true 09/08/19 Within the past 12 months, t he food you bought just didn't last and you didn't have money to get more. Never true 09/07/2024 PRAPARE - Transportation Answer Date Re corded In the past 12 months, has l ack of transportation kept you from medical appointments or from getting medications? No 08/12 In the past 12 months, has l ack of transportation kept you from meetings, work, or from getting things needed for daily living? No 09/07/2024 Nutrition Answer Date Recorded On average, how [...] have a [facility] place to live 09/07/2024 Education Answer Date Recorded What is the highest level of school you have completed or the highest degree you have received? Bachelor's degree (e.g., BA, AB, BS) 05/16/2019 Sex and Gender Information Value Date Recorded Sex Assigned at Male 01/13/2020 10:41 AM CDT Legal Sex Male 3:35 PM [employer] Gender Identity Male 04/11/2018 8:29 AM [employer] Sexual Orientation Straight 04/11/2018 8: 29 AM [employer] documented as of this encounter Last Filed Vital Signs Vital Sign Reading Time Taken Comments Blood Pressure 115/53 09/15/2024 1:15 PM CDT Pulse 71 09/15/2024 1:15 PM CDT Temperature 36.6 C (97.9 F) 09/15/2024 1:15 PM CDT Respiratory Rate 18 09/15/2024 3:00 PM CDT Oxygen Saturation 95% 09/15/2024 1:15 PM CDT Inhaled Oxygen Concentration - - Weight 124 kg (274 lb 0.5 oz) 09/15/2024 3:00 AM CDT Height 188 cm (6' 2) 09/07/2024 6:48 PM CDT Body Mass Index 35.18 09/07/2024 6:48 PM CDT documented in this encounter Discharge Summaries * Anna Wilson P.A.-C. - 09/15/2024 12:15 PM CDT CARDIOLOGY HOSPITAL DISCHARGE SUMMARY DATE OF ADMISSION: 09/07/2024 DATE OF DISCHARGE: 09/15/2024 Discharge Provider: Miko Douglas M.D. 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 Required PRN diuresis while hospitalized due to high dose steroid use. For Cardiology Provider: -- Follow up in the cardio-oncology clinic has been arranged on 09/22/24 -- 30 day MOME arranged on discharge to continue screening for arrhythmias Other follow up recommendations: -- Follow up in the neurology clinic has been arranged for 11/22/24 MEDICATIONS CHANGED DURING HOSPITAL STAY: Medications Stopped: atenolol (due to renal dysfunction and bradycardia), HCTZ (given new furosemide) Medications Changed: Tylenol reduced to 500 mg Q6 PRN, simvastatin held due to ICI myositis Medications Started: prednisone 250 mg daily (taper TBD by [facility] team), Bactrim for PJP prophylaxis, pantoprazole, amlodipine, PRN furosemide, dulcolax, MiraLax, nystatin powder, loratadine RESTRICTIONS: avoid driving for at least 30 days or longer until ICI myocarditis/myositis has resolved (no arrhythmias on MOME, normalized biomarkers) FOLLOW-UP APPOINTMENTS Scheduled Appointments Next 10 Appointments 09/16/2024 7:10 AM LAB BLOOD [facility] Laboratory Medicine 09/16/2024 9:00 AM [facility]C ACUTE CLINIC [address] [place] [address] Oncology 09/22/2024 8:40 AM LAB BLOOD [facility] Laboratory Medicine 09/22/2024 10:40 AM Holley Monsalve APRN, C.N.P. Oncology 09/22/2024 11:20 AM Izabella Garza M.D. Oncology 09/22/2024 1:00 PM Tanya Dang APRN, C.N.P., D.N.P. Cardiovascular Disease 10/10/2024 2:30 PM RST ONC INTAKE VISIT Admitting/Central Scheduling 10/11/2024 8:10 AM LAB BLOOD [facility] Laboratory Medicine 10/11/2024 9:[address] [facility] ABD LOS 825 Radiology 10/11/2024 3:40 PM Casimiro Chavez M.D., Ph.D. Oncology Displaying the next 10 appointments. This patient has additional appointments scheduled. For appointment details refer to your Patient Appointment Guide. HOSPITAL COURSE Admission Weight: 129 kg Dismissal Weight: 124 kg BMI: Body mass index is 35.18 kg/m??. Mr. Dwyer is a 83 y.o. male with recurrent metastatic urothelial carcinoma on pembrolizumab/Enfortumab (first dose 08/05/2024). Other medical comorbidities include previous bladder cancer s/p resectionand urostomy and chemotherapy 2011, CKD 4, hypertension, severe complex sleep apnea on ASV, papillary thyroid carcinoma s/p left thyroid lobectomy and isthmusectomy 2022, CAD s/p RHONDA x 2 to the RCA 2005, obesity, hyperlipidemia, history of gout. Urothelial cancer was first diagnosed in 2011. He underwent radical cystoprostatectomy with ileal conduit formation followed by adjuvant chemotherapy with cisplatin and gemcitabine. This year, he wasfound to have disease recurrence. He underwent his first infusion of pembrolizumab and Enfortumab on 08/05/2024. He initially felt fatigued and noticed a rash on his arms but otherwise felt well. He started cycle 2 on Thursday, 08/29 with pembrolizumab infusion. Each day following his infusion he noted new side effects including fatigue, shortness of breath, bilateral shoulder pain and lower extremity weakness, to the point where he couldn't stand up. On Thursday, 09/03 he was also noted to have left eyelid droop with double vision, which he described as similar to dry eyes, and neck extensorweakness. Symptoms were managed conservatively with artificial tears and heat packs. Yesterday, he presented to his local infusion center for planned Enfortumab infusion and was found to be severely weak and short of breath. He was directed to the local emergency department for further evaluation. Labs were notable for elevated CK of 3687, troponin I of 0.24 (ref range 0.01-0.04), and mildly elevated BNP 921 (normal for age and renal function). TTE demonstrated grossly normal biventricular function and an enlarged IVC. 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 Recommend initiation of IV Solu-Medrol and additional workup including necrotizing myopathy panel, myasthenia gravis panel, cardiac MRI, and EMG. Local facility did not have capability for cardiac MRI. [facility] was contacted and he was accepted for transfer to [facility]. On arrival to the PCU, Mr. Dwyer was hemodynamically stable and reported feeling significantly better following IV steroids. Repeat CK downtrended. Troponin T was noted to uptrend although clinically he appeared better. 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 He required intermittent doses of IV lasix forgentle diuresis and augmentation to blood pressure control. He was discharged with PRN lasix and instructed for weight based dosing. Discharge weight was 35 kg. 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 They recommendedhigh dose IV methylprednisolone. Neurology was also consulted . EMG was not suggestive of a neuromuscular disorder and more consistent with myositis. Myasthenia gravis labs and necrotizing myopathy labs were normal. He was treated with a 5 day course of IVIG which he tolerated well. Steroids were transitioned to oral prednisone on 09/12/2024. Troponins fluctuated mildly however he did not have any concerning arrhythmias on telemetry and remained stable from a cardiac perspective. Ongoing taper plan to be guided by the [facility] team. He is scheduled to see them on 09/16/24 with repeat labs which will guide further steroid dosing. Follow up has also been arranged with his primary oncologist, cardio-oncology, and neurology. He was discharged home in stable condition on 09/15/24. TEST RESULTS PENDING AT DISCHARGE: Pending Labs Order Current Status MyoMarker 3 Profile - Sent Out Lab In process Troponin I, High Sensitivity In process CONDITION ON DISCHARGE: Stable. DIET AT DISCHARGE: HF/myocarditis diet consisting of 8319-5353 mg sodium, low cholesterol, low fat.No more than 1.5 to 2 liters (6-8 cups of total fluid) fluid restriction each day. No alcohol, (or discuss with physician). PRIMARY PROVIDER PCP: Gaetano Mariscal MD -[place], [place] [phone] [facility] Clinic Team: Holley Monsalve CNP, Tanya Edwards CNP Oncology: Casimiro Chavez MD PhD MARGIN CODE I personally spent total time of 45 minutes with >50% spent with counseling/coordination of care, independent from other providers on our team. documented in this encounter Discharge Instructions * Discharge Instructions* Rebecca Live - 09/08/2024 7:05 AM CDT You were discharged from the [facility] C[facility] 5 Service. Please identify this service name if you call withquestions after hospitalization. * Attachments The following attachments cannot be sent through Care Everywhere. * Acetaminophen (By mouth) (Zimbabwean) * Allopurinol (By mouth) (Zimbabwean) * Cholecalciferol (By mouth) (Zimbabwean) * Hydrochlorothiazide (By mouth) (Zimbabwean) * Hydroxyzine (By mouth) (Zimbabwean) * Losartan (By mouth) (Zimbabwean) * Ondansetron (By injection) ([place]imbabwean) * Prochlorperazine (By mouth) (Zimbabwean) * Senna (By mouth) (Zimbabwean) * Simvastatin (By mouth) (Zimbabwean) * Nystatin/Triamcinolone (On the skin) (Zimbabwean) documented in this encounter Medications at Time of Discharge acetaminophen (TylenoL) 500 mg tablet Take 1 tablet (500 mg total) by mouth every 6 (six) hours as needed for pain. 5 allopurinol (ZYLOPRIM) 300 mg tablet Take 300 mg by mouth every morning. 2 amLODIPine (Norvasc) 10 mg tablet Take 1 tablet (10 mg total) by mouth daily. 90 tablet 3 09/15/2024 12:41 PM CDT 5 bisacodyL (Dulcolax) 5 mg EC tablet Take 2 tablets (10 mg total) by mouth daily as needed for constipation. 5 cholecalciferol (VITAMIN D3) 2,000 Unit capsule Take 2,000 Units by mouth every evening. diphenhydramine HCl (ALLERGY ORAL) Take 1 tablet by mouth 2 (two) times a day. DME Bi-level PAPIndications:C entral Sleep Apnea Syndrome,Apnea Sleep Obstructive DME Order 1 each 2 DME Ostomy suppliesIndicati ons:Conduit Ileal (HCC) DME Order 1 Unspecified 5 ferrous sulfate 324 mg (65 mg iron) DR tablet Take 65 mg of iron by mouth 3 (three) times a week. furosemide (Lasix) 20 mg tablet Take 1 tablet (20 mg total) by mouth daily as needed (weight gain greater than 3 lbs in 24 hours or 5 lbs in one week). 90 tablet 3 09/15/2024 12:41 PM CDT 5 hydrOXYzine (Atarax) 25 mg tabletIndication s:Malignant Neoplasm Of Bladder (HCC),Secondary Malignant Neoplasm Lymph Node (HCC) Take 1 tablet (25 mg total) by mouth 3 (three) times a day as needed for itching. 30 tablet 3 5 KRILL OIL ORAL Take 1 capsule by mouth every evening. loratadine (Claritin) 10 mg tablet Take 1 tablet (10 mg total) by mouth every evening. 5 losartan (COZAAR) 100 mg tablet Take 100 mg by mouth daily. 3 nystatin (Nystop) 100,000 unit/gram powder Apply 1 Application topically 2 (two) times a day. Apply to affected intertriginous areas of skin and brush off any excess powder. 15 g 09/15/2024 12:41 PM CDT 5 ondansetron (Zofran) 8 mg tabletIndication s:Malignant Neoplasm Of Bladder (HCC),Secondary Malignant Neoplasm Lymph Node (HCC) Take 1 tablet (8 mg total) by mouth every 8 (eight) hours as needed for nausea or vomiting (unrelieved by prochlorperazine). 30 tablet 3 5 08/06/19 26 pantoprazole (Protonix) 40 mg EC tablet Take 1 tablet (40 mg total) by mouth daily before morning meal. While on high dose steroids. 90 tablet 3 09/15/2024 12:41 PM CDT 5 polyethylene glycol (Miralax) 17 gram powder packet Take 1 packet (17 g total) by mouth 2 (two) times a day. Dissolve each 17 g dose in 240 mLs (8 ounces) of beverage. 5 predniSONE (Deltasone) 50 mg tablet Take 5 tablets (250 mg) daily until 09/16/2024 with [facility] clinic follow up and labs. Then, take as directed from [facility] clinic provider. 70 tablet 09/15/2024 12:41 PM CDT 5 prochlorperazine (Compazine) 10 mg tabletIndication s:Malignant Neoplasm Of Bladder (HCC),Secondary Malignant Neoplasm Lymph Node (HCC) Take 1 tablet (10 mg total) by mouth every 6 (six) hours as needed for nausea or vomiting. 30 tablet 3 5 08/06/19 26 sennosides-docus ate sodium (SENOKOT-S) 8.6-50 mg per tablet Take 2 tablets by mouth 2 (two) times a day. 7 simvastatin (ZOCOR) 40 mg tablet Take 40 mg by mouth at bedtime. 2 sulfamethoxazole -trimethoprim (Bactrim DS) 800-160 mg per tabletIndication s:Prophylaxis, medical Take 1 tablet by mouth daily Indications: Prophylaxis, medical. While on high dose steroids. 90 tablet 1 09/15/2024 12:41 PM CDT 5 triamcinolone (KENALOG) 0.1 % cream Apply 1 Application topically as needed for irritation or rash. triamcinolone (Kenalog) 0.1 % lotionIndication s:Malignant Neoplasm Of Bladder (HCC),Secondary Malignant Neoplasm Lymph Node (HCC) Apply 1 Application topically 2 (two) times a day as needed (Rash, Itching). 180 mL 3 5 documented as of this encounter Progress Notes * Broderick Merritt, P.T.A. - 09/15/2024 3:35 PM CDT 09/15/24 1535 Reason Therapy Missed Reason Therapy Missed Patient declined therapy * Kari Detusch, PharmLilianaD., R.Ph., [facility] - 09/15/2024 11:47 AM CDT Pharmacist Progress Note Reason for admission: severe weakness PMH: recurrent metastatic urothelial carcinoma, CKD4, HTN, sleep apnea, thyroid carcinoma, CAD s/p RHONDA 2006, HLD, gout. Medical History[1] OBJECTIVE CV: hypertension - losartan 100 mg, amlodipine 10 mg daily Neph: Estimated Creatinine Clearance: 35 mL/min (A) (by C-G formula based on SCr of 2.28 mg/dL (H)). allopurinol Heme: prednisone, IVIG, bactrim for PCP prophylaxis. ferrous sulfate PPX: VTE - SQH, pantoprazole (on steroids) Medication Reconciliation: Held: atenolol, HCTZ, simvastatin Changed: TBD New: amlodipine 5 mg ASSESSMENT / PLAN Severe weakness in the setting of recurrent metastatic urothelial carcinoma w/ concern for ICI toxicity (neuro w/u consistent with myositis; myasthenia gravis ruled out). Oncology consulted. High dose steroids with taper per ICI team New bactrim for PJP ppx. Blood glucose well controlled without insulin despite high dose steroids. Simvastatin held in setting of myositis Atenolol placed on hold due to decreased renal function High blood pressure may be at least partially due to high dose steroids. Increased amlodipine to 10mg /day. Uric acid level 6.2. Reasonable to continue allopurinol 300 mg daily Last BM 09/11. Consider escalating bowel regimen. May require a suppository Kari Deutsch, Pharm.D., R.Ph., BCCP [1] Past Medical History: Diagnosis Date Apnea Sleep Obstructive Uses CPAP Benign Prostatic Hyperplasia With Lower Urinary Tract Symptom 07/25/2009 LW Modifier: s/p TURP ; BPH Age Related Prostate Ca Risk w Obst BenignProstatic Hyperplasia Localized 2011 Blood Transfusion No Diagnosis 2011 2-3 units Cataract 2015 Chronic Kidney Disease NOS Stage 4 Coronary Artery Disease NOS 2006 2 stents placed Defect Coagulation (HCC) 2012 Hernia Hyperlipidemia 2003 Hypertension NOS 2003 Malignant Neoplasm Of Bladder (HCC) 2007 Malignant Neoplasm Of Thyroid Papillary (HCC) 09/12/2022 Nodule Thyroid 2016 Other Injury Of Unspecified Body Region 1958 foot Other Pulmonary Embolism Without Acute Cor Pulmonale (HCC) 07/14/2011 Peripheral Vascular Disease Lower extremities Polyp Colon 2012 Thromboembolism NOS 2012 left leg Urostomy Status Post ([facility]) * Anna Wilson P.A.-C. - 09/14/2024 12:32 PM CDT [facility] 5 CARDIOLOGY INPATIENT PROGRESS NOTE SUBJECTIVE Mr. Dwyer was seen and examined on morning rounds. He feels well and is eager to discharge from the hospital. Denies shortness of breath, lightheadedness, dizziness, or chest discomfort. OBJECTIVE TELEMETRY Sinus rhythm with isolated few PVCs, no concerning ventricular arrhythmias overnight. INTAKE/OUTPUT Past 24 hours: Intake/Output Summary (Last 24 hours) at 09/14/2024 1232 Last data filed at 09/14/2024 0941 Gross per 24 hour Intake 1060 ml Output 2220 ml Net -1160 ml Net Hospitalization: -5.8 L Admission Weight: 129 kg Today's weight: 125 kg Weight change since admit: - 4kg Body mass index is 35.41 kg/m??. VITAL SIGNS Temperature: [36.5 ??C-36.7 ??C] 36.6 ??C Heart Rate: [52-104] 88 Resp Rate: [10-26] 21 Blood Pressure: (143-172)/(56-73) 152/71 SpO2: [91 %-98 %] 91 % Weight: [125 kg] 125 kg BMI (Calculated): [35.4 kg/m??] 35.4 kg/m?? Pulse Rate: [69-105] 79 PHYSICAL EXAMINATION General: Alert, somewhat hyperactive, poor thought coherence at times Heart: Regular rate and rhythm, no murmurs appreciated, no JVD Lungs: Clear to auscultation bilaterally, on room air Abdomen: Soft, mildly distended, nontender. Urostomy present with blood tinged urine in catheter bag. Extremities: Trace to 1+ bilateral lower extremity edema (R>L), SARA wraps in place DIAGNOSTICS I personally reviewed all radiology and labs from the past 24 hrs. Labs: Hemoglobin 12.4 Hematocrit 37.4 Platelets 118 Leukocytes 13.4 Sodium 143 Potassium 4.0 Chloride 108 Bicarbonate 22 BUN 69 Creatinine 2.02 EGFR 32 Calcium 8.1 Glucose 99 High sensitivity troponin I: 70 Troponin T: 377 CK: 73 ASSESSMENT / PLAN #1 ICI myositis and myocarditis #2 Recurrent metastatic urothelial carcinoma with recent initiation of pembrolizumab/Enfortumab (cycle 1 - 08/05/24, cycle 2 - started 08/29/24) s/p (radical cystoprostatectomy with ileal conduit urinary diversion-2011) and adjuvant cisplatin and gemcitabine #3 Post-operative DVT and PE s/p IVC filter placement/removal (2011) #4 Coronary artery disease s/p PCI-RCA x 2 (2005) #5 RUTHY on ASV #6 Hypertension #7 Hyperlipidemia #8 Obesity, BMI 36 #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 Dwyer is a 83 y.o. male with recurrent metastatic urothelial carcinoma who recently started treatment with pembrolizumab/Enfortumab on 08/05/24. He started cycle 2 on 08/29/24. He presented to the local infusion center and was found to have severe weakness, dyspnea, and ptosis. He was admitted locally and found to have elevated CK (3687), troponin I 0.24 (ref range 0.01-0.04), and mildly elevated BNP 921. Local TTE demonstrated grossly normal biventricular function and an enlarged IVC. 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 He was initiated on high-dose steroids with methylprednisolone and further workup recommended including cardiac MRI, EMG, necrotizing myopathy panel, myasthenia gravis panel. Nocardiac MRI was available locally, so he was transferred to [facility] for further management. Oncology team has been closely following ICI toxicity workup was completed. He has been treated with 5 days of IV methylprednisolone (plus a dose at the outside hospital prior to transfer). He was transitioned to high dose oral prednisone 09/13 per oncology recommendations (2mg/kg -> 250mg prednisone). They recommend continuing with this dose today being mindful of some steroid induced cognitivesymptoms. Appreciate oncology recommendations regarding further steroid taper plan. Follow up with ICI cardiology is arranged for Saturday 09/16. Cardiac MRI did not show any evidence of myocardial inflammation, but interestingly, his troponin Iwas significantly elevated and was downtrending (116->65->53), suggesting possible subacute myocardial inflammation. Troponin I increased at 70 today and Oncology/ICI clinic has recommended another 24 hours of monitoring on telemetry. Troponin T is still downtrending. He has required intermittent diuresis to offset fluid retention likely related to the steroids. Will continue trend troponinT daily and troponin I M/W/F. Thankfully we have not seen any concerning ventricular arrhythmias (few isolated PVCs overnight). Neurology was following and workup for his weakness has been consistent with myositis. Myasthenia gravis has been ruled out. He completed a 5 day course of IVIG (last dose 09/12/24). No further IVIG indicated. CK has been trended and normalized. He has been intermittently hypertensive. His home atenolol has been held due to worsened renal function, but would prefer to avoid introducing another beta alex as heart rates are running quite low. Will continue home losartan 100mg for now with close monitoring of renal function. He has also been initiated on low dose amlodipine but continues to have intermittent hypertension in the setting of high dose steroid use. His amlodipine was increased to 10 mg daily with improved control overnight. He received IV furosemide 40 mg yesterday to offset fluid retention related to steroids as well assignificant PO liquid intake due to increased thirst. He continued to be hypertensive this afternoon so will provide additional 40 mg IV furosemide. He reported abnormal appearance of the urine in his urostomy bag this week. UA is abnormal (WBCs, RBCs, bacteria) but this is chronically the case. He has been afebrile, no flank pain. He has a leukocytosis but this is in the setting of very high steroid dosing. Urine culture had microbial growth, no specific organisms. Will continue to monitor, no additional antibiotics for now (on Bactrim for PJP prophylaxis). His urostomy bag showed red urine with some clots today so will consult Urology forfurther recommendations and specifics on flushing/irrigation if indicated. PLAN: -- Repeat 40 IV furosemide today. May need daily or at least PRN diuretic at discharge while on high dose steroids. -- Continue amlodipine 10mg daily for elevated BP in setting of high dose steroids (new at discharge) -- Trend CK and troponins -- CK trend: 3687-----> 73 today (WNL) -- Troponin trend: 543->peak 639----->377 today -- Troponin I: 116->65->53 -> increased slightly to 70 today (lab is only run on //) - Per Oncology and ICI myocarditis clinic, recommend continued inpatient monitoring for 24 hours with repeat troponin I tomorrow 09/15 as well as 09/16 with follow up (labs to be run on Thu) - If no concerns for worsening arrhythmias on telemetry and labs are stable to improving tomorrow, anticipate discharge -- Continuous telemetry given high risk for ventricular arrhythmias -- Oncology consulted -- Completed 5 day course of IV methylprednisolone (last on 09/12/24) -- Continue oral prednisone 250 mg today. PPI and Bactrim while in high dose steroids. 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 -- Home atenolol 25 mg daily held due to impaired renal clearance. No alternate beta blockade at this time as he is quite bradycardic. VTE: Heparin SQ 5,000 units TID Gi: Pantoprazole Tubes/lines: PIV Telemetry Indication: ICI myocarditis Code Status: Full Code Disposition: Home - self care Anna Wilson P.A.-C. 09/14/24 RST CARD 5 I personally spent a total 50 minutes providing and coordinating care today. * Broderick Merritt P.T.A. - 09/14/2024 11:45 AM CDT Physical Therapy Inpatient Treatment SUBJECTIVE Patient's Name: Michael Dwyer Referring/Attending Provider: Miko Douglas M.D. Reason for Referral: Physical Therapy Evaluate and Treat Onset Date: 09/07/2024 History of Present Illness: Michael Dwyer is a 83 y.o. 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 Patient/Caregiver Goals: Return to home Subjective Comments: Agreeable to therapy session. OBJECTIVE Vital Signs Vitals monitored throughout session; within normal ranges. Outcome Measures: AM-PAC Inpatient Short Form: AM-PAC Basic Mobility (V.2) How much help from another person do you currently need???If the patient hasn't done an activity recently, how much help from another person do you think he/she would needif he/she tried? 1. Turning from your back to your side while in a flat bed without using bedrails?: A Little 2. Moving from lying on your back to sitting on the side of a flat bed without using bedrails?: A Little 3. Moving to and from a bed to a chair (including a wheelchair)?: A Little 4. Standing up from a chair using your arms (e.g., wheelchair, or bedside chair)?: A Little 5. To walk in hospital room?: A Little 6. Climbing 3-5 steps with a railing?: A Little AM-PAC Basic Mobility (V.2) Raw Score: 18 AM-PAC Basic Mobility (V.2) Standardized Score: 41.05 Interpretation: Based on scoring guidelines using the raw score value: Those going to home had an average score at or above 18 Those going to facility had an average score at or below 17 Clinicians answer the AM-PAC Inpatient Short Form based on observed patient activity and/or clinical judgement (patient can be scored without physically performing each activity). The AM-PAC is one of many factors to consider when discharge planning. Therapeutic Interventions: SUPINE TO SIT: - Assist Level: stand by assist of 1 - Device: head of bed elevated and bedrail - Therapist Delivery: assessed, educated, and facilitated - Assist/Cues Provided: verbal for breathing technique and increased roll distance SIT TO STAND: - Assist Level: stand by assist of 1 - Device: gait belt and front wheeled walker - Surface: bed and chair - Therapist Delivery: assessed, educated, facilitated, and instructed - Assist/Cues Provided: verbal for upper extremity placement, upright posture, and use of momentum STAND TO SIT: - Assist Level: stand by assist of 1 - Device: gait belt and front wheeled walker - Surface: bed and chair - Therapist Delivery: assessed, educated, and facilitated - Assist/Cues Provided: verbal for alignment with seated surface, breathing technique, eccentric control, hip flexion, safety, and upper extremity placement GAIT: - Distance: 160 meters - Assist Level:stand by assist of 1 - Device: gait belt and front wheeled walker - Quality: decreased base of support, decreased gait speed, decreased step length, downward gaze, forward flexed posture, guarded - Therapist Delivery: assessed, educated, and facilitated - Assist/Cues Provided:verbal for breathing techniques, forward gaze, increased step length, pacing, placement within the walker, terminal hip extension, and upright posture - Comments: Cues for upright posture, pacing, and pursed lip breathing. Good stability with dynamicmobility. Balance: Static stand eyes open/closed, side stepping, and retro walking with contact guard assistance for safety, slight instability noted THERAPEUTIC EXERCISE: Seated Therapeutic Exercise: - Side: bilateral lower extremity(ies) - Mode: active range of motion - Exercises: ankle pumps, long arc quads, and marching - Repetitions: 2 x 10 - Assist/Cues Provided: motor control and pacing EDUCATION: The patient/family educated on safe transfer techniques with functional mobility/activity. The patient's status was discussed and the following coordination of care occurred with the RN and Family/Caregiver Family/Caregiver Present: Spouse and sister Patient was left in bedside chair at end of session with call light in reach, all needs met and questions answered. Assessment Discharge Therapy Needs - PT: Ongoing skilled physical therapy (pending hospital course) If skilled therapy is recommended, skilled therapy can include physical therapy provided by home health, outpatient clinic, or a post-acute facility. The location of these services is determined by the patient's care team in partnership with patient/family. Level of Care Needed - PT: Assistance with transfers (Comment), Assistance with walking and moving around the home Barriers to Discharge Home: Current functional status, Fall risk, Safety concerns Equipment Recommended - PT: Front-wheeled walker Patient owns front wheeled walker. From a physical therapy perspective, the level of care above has been recommended for Mr. Dwyer after hospital discharge. This level of care is based on his functional abilities during today's session. This may change throughout the hospital course and will be updated as appropriate. Clinical Impression: Patient pleasant and agreeable to treatment session, reports that he will probably be discharging either later today or tomorrow. Patient was able to complete all his transfers and ambulation with front wheel walker only requiring standby assist for safety however no instability noted. Patient did demonstrate increased activity tolerance as noted by decreased shortness of breath after ambulation with improved stability while completing all his standing tasks. Patient does remain below his priorfunctional mobility baseline and would benefit from ongoing physical therapy skilled intervention to optimize his safety and independence with all his functional mobility. Rehab potential: Mr. Dwyer has Good potential to achieve established physical therapy goals within the time frame outlined below. Progress: Progressing toward goals Plan PT Plan Comments: Continue to progress functional mobility and lower extremity exercises appropriate. Assess bed mobility with adjustable bed features/no bed rail. Continue to work on sit<> stand transfers and progress ambulation beginning with use of front wheeled walker increasing distance and frequency as tolerated. Weaning from walker as appropriate. Functional Goals: PT Inpatient Goals PT Goal #1: Patient will be independent with supine<>sit transfers with bed flat/no bed rail to progress towards functional independence. PT Goal #1 Status: Progressing PT Goal #2: Patient will be independent/modified independent utilizing most appropriate gait devicewith sit<>stand transfers to progress towards functional independence. PT Goal #2 Status: Achieved PT Goal #3: Patient will be independent/modified independent utilizing most appropriate gait deviceambulating a distance of 60 m to progress towards functional independence. PT Goal #3 Status: Progressing Treatment Plan: Plan: Continue with current plan PT Amount: 1 visit per day PT Frequency: 5 times per week PT Inpatient Duration : Until goals are met or hospital discharge Requires Inpatient Follow-Up: Yes PT - Next Inpatient Appointment: 09/15/24 Patient agrees with the plan of care and goals. Treatment interventions may include: Treatment/Interventions: Therapeutic exercise, Therapeutic functional activity, Self-care/home management, Neuromuscular re-education, Gait training EDUCATION CONSULTANT Visit Trackin Billing: Time Spent with Patient Therapeutic Interventions Gait Training (min): 12 min Therapeutic Activity (min): 10 min Therapeutic Exercise (min): 5 min Time Tracking Total Timed Units (min): 27 min Total Treatment Time (min): 27 min Broderick Merritt P.T.A. * Shanita Velarde APRN, C.N.P., M.S.N. - 09/14/2024 8:12 AM CDT MEDICAL ONCOLOGY CONSULT SERVICE: PROGRESS NOTE Primary Service: RST CARD 5 Local Oncologist: No care executive team leader to display [facility] Oncologist(s): Casimiro Chavez M.D., Ph.D. Reason(s) for consult: Known cancer diagnosis Suspected Immune Checkpoint Inhibitor (ICI) toxicity Managing medications for ICI toxicity SUBJECTIVE Events over 24 hrs: Multiform PVCs on telemetry this morning. Increase in troponin I. No new symptoms. Continues to feel well despite the cognitive side effects from the steroids (jittery, excessive talking, tangential thought process) OBJECTIVE VITAL SIGNS: reviewed the current vital sign data as applicable. Physical Exam General: No acute distress, cooperative. Jittery, excessive talking, tangential thought process. HEENT: Normocephalic, extra-ocular motion and vision are grossly intact, hearing grossly intact. Cardiovascular: Regular rate, no peripheral edema appreciated, warm and well perfused. Chest/Pulmonary: No coughing or wheezing, on room air, normal work of breathing. Abdominal: Soft, non-distended Neurological: Alert, oriented to self and situation, ambulating DIAGNOSTICS Recent Labs 09/14/24 0704 09/13/24 0728 09/12/24 0752 09/11/24 0812 09/10/24 0744 HGB 12.4 L 12.1 L 12.5 L 12.3 L 12.5 L WBC 13.4 H 11.8 H 11.2 H 10.2 H 11.3 H PLT 118 L 122 L 146 159 182 Recent Labs 09/14/24 0704 09/13/24 0728 09/12/24 0752 09/11/24 0812 09/10/24 0744 NA 143 138 136 139 140 KSERUM 4.0 4.2 4.5 4.7 4.1 CL 108 H 106 106 108 H 106 BICARB 22 19 L 19 L 17 L 17 L BUN 69 H 72 H 69 H 64 H 60 H CREATININE 2.02 H 2.14 H 2.06 H 2.04 H 1.97 H Recent Labs 09/09/24 1019 09/07/24 1931 ALT 87 H 92 H AST 70 H 155 H Results from last 7 days Lab Units 09/14/24 0704 09/08/24 1212 09/08/24 0148 09/07/24 2142 09/07/24 1931 TRPS TROPONIN T ng/L 377* < > -- -- -- TRPB TROPONIN T BASE ng/L -- -- -- -- 543* TRPST TROP 2H ng/L -- -- -- 528* -- TRPST TROP 6H ng/L -- -- 496* -- -- < > = values in this interval not displayed. IMAGING: Cardiac MRI: Late gadolinium enhancement in the basal to mid inferior and inferoseptal segments; subendocardial distribution with associated regional hypokinesis but no T2 signal abnormality most consistent with chronic infarction. ASSESSMENT / PLAN Mr. Michael Dwyer is a 83 y.o. 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 He reports significant improvement in overall weakness since initiation of steroids. Tolerating steroid therapy well so far. Transitioned to oral steroids yesterday with 2 mg/kg of prednisone. Ectopy noticedover last 24 hours with multiform PVCs. Troponin T and CK continue to trend down, however, TroponinI today was unfortunately elevated to 70 from 53 yesterday. We were hopeful for discharge today, but will continue to observe overnight. Possible discharge tomorrow morning. Corticosteroid hx: 09/07 - 09/12: Methylprednisolone 1 g daily (Got 1 gram solumedrol on 09/07 at outside facility prior to transfer) 09/13 -present: 2 mg/kg PO Prednisone (250 mg) IVIG hx: 09/08-09/12: IVIG load x 5 days Biologics hx: none ONCOLOGY RECOMMENDATIONS: Continue cardiac telemetry Transition to [facility] [place] for 3 weeks at discharge. Cardiac MRI without clear evidence of myocarditis. 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 PJP prophylaxis with Bactrim and GI prophylaxis with pantoprazole Trend CK and Troponin T daily. Obtain Troponin I on Thursday, Thursday, and Hossein PLEASE OBTAIN TROPONIN I TOMORROW, 09/15 Neurology following for management of myositis Neurology has ruled out MG EMG and clinical exam consistent with ICI myositis Completed IVIG 0.4g/kg x 5 days Please ensure Neurology no longer intend to continue weekly maintenance IVIG PMR, PT/OT, CERTIFIED FORKLIFT OPERATOR consults for aggressive rehab Oncology follow up arranged: ICI follow up on 09/16 and 09/22 Cardio-Oncology appointment on 09/22 Onc follow up will be scheduled 09/22 Oncology plan for following: Oncology Consults will continue to see this patient daily. Communication: Treatment plan reviewed with Mr. Dwyer and his family. They expressed understanding. All questions answered to their satisfaction. Staffing: This case was staffed with Dr. Cantu and ICI team who is in agreement with this plan. Paging: Please page Oncology Consults Oncall with any questions at [phone] (service pager). Slim 7A-7P, [facility] Student Nurse on Consult service Shanita Velarde APRN, C.N.Jeramy, M.S.N. * Miko Douglas M.D. - 09/13/2024 3:30 PM CDT SUBJECTIVE Inpatient Cardiology 5 Service Heart Failure Service progress note. HISTORY OF PRESENT ILLNESS I met with the patient and his family in his room [id number]. The patient appeared well. He is afebrile and hemodynamically stable. I was accompanied by ELISHA Bundy on the cardiology service. I met, interviewed, and examined the patient. ASSESSMENT / PLAN I concur with the content of the progress note per Ms. Hernandez from today including physical diagnosis, diagnostic impression, and plan. MARGIN CODE: SH2, total time 25 minutes with more than 15 minutes spent discussing diagnoses, management, and coordination of care. Miko Douglas M.D. CT CT Job ID: [id number]/ * Kari Deutsch Pharm.D., R.Ph., [facility] - 09/13/2024 2:07 PM CDT Pharmacist Progress Note Reason for admission: severe weakness PMH: recurrent metastatic urothelial carcinoma, CKD4, HTN, sleep apnea, thyroid carcinoma, CAD s/p RHONDA 2005, HLD, gout. Medical History[1] OBJECTIVE CV: HTN-losartan 100 mg, amlodipine 5 mg daily Neph: Estimated Creatinine Clearance: 37.6 mL/min (A) (by C-G formula based on SCr of 2.14 mg/dL (H)). allopurinol Heme: prednisone, IVIG, bactrim for PCP prophylaxis. ferrous sulfate PPX: VTE - SQH, pantoprazole (on steroids) Medication Reconciliation: Held: atenolol, HCTZ, simvastatin Changed: TBD New: amlodipine 5 mg ASSESSMENT / PLAN Severe weakness in the setting of recurrent metastatic urothelial carcinoma w/ concern for ICI toxicity (neuro w/u consistent with myositis; myasthenia gravis ruled out). Oncology consulted. Completed Gammagard 0.4 g/kg for 5 doses for concern of myasthenia gravis. High dose steroids with taper per ICI team New bactrim for PJP ppx. Blood glucose well controlled without insulin despite high dose steroids. Simvastatin held in setting of myositis Atenolol placed on hold due to decreased renal function High blood pressure may be at least partially due to high dose steroids. Increased amlodipine to 10mg /day. Uric acid level 6.2. 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 Reason for Referral: Occupational Therapy Evaluation and Treatment Onset Date: 09/07/2024 History of Present Illness: Michael Dwyer is a 83 y.o. male who was admitted to [facility] in [place] on 09/07/2024 for Myositis [M60.9]. 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 Subjective Comments: Agreeable to therapy session. OBJECTIVE Vital Signs: Vitals monitored throughout session; within normal ranges. Outcome Measures: AM-PAC Inpatient Short Form: Putting on and taking off regular lower body clothing?: A Little Putting on and taking off regular upper body clothing?: None Taking care of personal grooming such as brushing teeth?: None Bathing (including washing, rinsing, drying)?: A lot Toileting, which includes using toilet, bedpan, or urinal?: A Little Eating meals?: None Daily Activities Raw Score (max 24): 20 Daily Activities Standardized Score: 42.03 Interpretation: Based on scoring guidelines using the raw score value: Those going to home had an average score at or above 18 Those going to facility had an average score at or below 17 Clinicians answer the AM-PAC Inpatient Short Form based on observed patient activity and/or clinical judgment (patient can be scored without physically performing each activity). The AM-PAC is one ofmany factors to consider when discharge planning. Cognition: Will further assess and monitor as warranted Cognitive Deficits: perseveration, impaired attention, impaired concentration Therapeutic Interventions: ACTIVITIES OF DAILY LIVING: GROOMING - Assist Level: modified independent - Patient Location: standing at sink - Activity: brushing teeth - regular or soft brush, combing hair, washing face, shaving face - Therapist Delivery: assessed, facilitated - Assist/Cues Provided: none for none UPPER BODY DRESSING - Assist Level: supervision/set-up - Patient Location: standing - UB Dressing Item: hospital gown - Therapist Delivery: assessed, facilitated - Assist/Cues Provided: verbal and tactile for sequencing LOWER BODY DRESSING - Assist Level: moderate assist - Patient Location: chair - LB Dressing Item: socks - Therapist Delivery: assessed, assisted, educated, facilitated - Assist/Cues Provided: verbal, tactile, visual, and manual for technique, sequencing - patient having difficulty with LB dressing due to edema and weakness, increased assistance required, planning to provide at discharge FUNCTIONAL TRANSFERS: SIT<>STAND - Assist Level: contact guard assist - Device: front wheeled walker and gait belt - Surface: chair, toilet - Therapist Delivery: assessed, facilitated, instructed - Assist/Cues Provided: verbal, tactile, and visual for technique, sequencing FUNCTIONAL MOBILITY: In-room mobility performed with supervision/stand by assistance and front wheeled walker and gait belt NEUROMUSCULAR RE-EDUCATION: Eye stretches Oneal Chart Horizontal Saccades (5 errors with R eye, 2 errors with L eye) -visual symptoms noted around line 6 of chart [place] Tracking (underlining and single letter) Education/Training Provided: - Home exercise program for vision (Oneal Chart, [place] Tracking, word searches) -review of visual symptoms and management strategies -timing and dosing of exercises Team Communication: The patient's status was discussed and coordination of care occurred with RN, Family/Caregiver, OT Family/Caregiver Present: family Patient was left in bedside chair at end of session with call light in reach, all needs met and questions answered. Assessment Discharge Therapy Needs - OT: Ongoing skilled occupational therapy If skilled therapy is recommended, skilled therapy can include occupational therapy provided in home health, outpatient or post-acute facility. The location of these services is determined by patient's care team in partnership with patient/family. Level of Care Needed - OT: Assistance with dressing, Assistance with toilet/shower transfers, Assistance with meal preparation, Assistance with showering/bathing, Assistance with housekeeping, Assistance with transportation, Assistance with shopping, Assistance with medication set up/administration Barriers to Discharge Home: Current functional status, Fall risk Recommended Adaptive Equipment - OT: Toilet safety frame Clinical Impression: Patient grossly required contact guard to supervision assistance for mobility and functional transfers during session and a range of moderate assistance to modified independent for functional tasks. Patient noted to demonstrate some visual symptoms while completing Oneal Chart and [place] Tracking exercises during session. Currently, L eye performing more accurately than R eye. Patient and caregiver verbalized understanding of vision therapy home exercise program, and appropriate follow-up postinpatient stay. Patient remains limited secondary to oculomotor deficits, decreased activity tolerance, impaired functional balance, and generalized weakness. Patient presents as below functional baseline and would benefit from increased assistance for IADLs and ADLs as needed from a capable caregiver post-discharge. Patient would continue to benefit from skilled occupational therapy to maximize safety and independence in activities of daily living, functional transfers, and mobility. Plan OT Plan Comments: Next Session: total body dressing -AE? Functional Goals: OT Goal #1: Patient will complete total body dressing with modified independence to maximize independence and decrease dependence on others. OT Goal #1 Status: Progressing OT Goal #2: Patient will complete toileting skills including hygiene, clothing management, and transfer with modified independence to maximize independence and decrease dependence on others. OT Goal #2 Status: Achieved OT Goal #3: Patient will perform standing grooming with modified independence to return to prior level of function. OT Goal #3 Status: Achieved OT Goal #4: Patient and family will verbalize understanding of recommended home going durable medical equipment. OT Goal #4 Status: Achieved Progress: Progressing toward goals Rehab potential: Mr. Dwyer has excellent potential to achieve established occupational therapy goalswithin the time frame outlined below. OT Frequency: OT Amount: 1 visit per day OT Frequency: 5 times per week OT Inpatient Duration : Until goals are met or hospital discharge Requires Inpatient OT Follow-Up: Yes OT - Next Inpatient Appointment: 09/14/24 Plan: Continue with current plan Treatment interventions may include: Treatment Interventions: Therapeutic exercise, Therapeutic functional activity, Self-care/home management, Neuromuscular re-education, Cognitive skills training Occupational Therapy Attestation Statement: Patient agrees with the plan of care and goals. Billing: Time Spent with Patient Therapeutic Interventions Home Management Training (min): 30 min Neuromuscular Re-Education (min): 30 min Time Tracking Total Timed Units (min): 60 min Total Treatment Time (min): 60 min Allegra Neumann O.T., MOT * Adriana Dolan M.D., M.S. - 09/13/2024 8:44 AM CDT Images from the original note were not included. Neurology Consult Follow-Up Note SUBJECTIVE Mr. Michael Dwyer is an 83-year-old male with recurrent metastatic urothelial carcinoma on Pembrolizumab and Enfortumab presented with fatigue, shortness of breath, muscle weakness, double vision, and left eyelid droop and was hospitalized with concerns for ICI myositis. INTERVAL EVENTS: -Poor sleep overnight with some mild episodes of confusion with his phone and some events overnight -Family and patient report an 90% improvement in his symptoms -Reports some mild residual eye fatigue which is worse at the end of the day OBJECTIVE Mental status: Alert and oriented to time, place and person Gait: Not assessed. Coordination: Finger to nose and heel to medley are normal bilaterally. Tremor: none Speech: normal. Tone: normal Cranial nerves R Muscle strength L R L Frontalis Visual acuity 0 Orbicularis oculi 0 Pupils 0 Lower facial muscles 0 0 Light reflex 0 0 Temporal-[place] 0 0 Ptosis 0 0 Palate-Pharynx 0 0 Extraocular muscles 0 0 Sternocleidomastoid 0 0 Trapezius 0 0 Hearing 0 0 Genioglossus 0 Muscle atrophy/ enlargement: no Fasciculations: no R Muscle, strength L R Muscle, strength L Neck Trunk -.5 Neck flexors -.5 Abdominal muscles -.5 Neck extensors -.5 Paraspinals Upper Limbs Lower Limbs Supraspinatus (Suprascap/C5/U) -2 Iliopsoas (Femoral/L2-3) -2 Infraspinatus (Suprascap/C5/U) 0 Adductors, thigh (Obt/L2-4) 0 0 Pectoralis (Lat pec/med pec, C4-6/C6-8) 0 Gluteus medius (SupGlu/L4-S1) -1 Deltoid (Axil/C5-6/U/P) -1 Gluteus max (InfGlu/L5-S2) 0 Biceps brachii (Musc/C5-6/U/L) 0 0 Quadriceps (Femoral/L2-4) 0 Brachioradialis (Rad/C6/U/P) 0 Hamstrings (Sciatic/L5-S1) 0 Supinator/pronator (Rad/C6/U+M/P) 0 Tibialis anterior (DeepPer/L4-5) 0 0 Triceps (Rad/C6-8/All/P) 0 0 Peronei (SupPer/L5-S1) 0 0 Wrist extensor (Rad/C6-7/U+M/P) 0 0 EHL (DeepPer/L5-S1) 0 0 Wrist flexors (Med/C6-7/U+M/L) 0 0 Toe extensors (Peroneal/L5-D1) 0 0 Digit extensors (Rad/C7-8/M+L/P) 0 Tibialis post. (Tibial/L5-S1) 0 Digit flexors (Med/C7-8/M+L/M+L) 0 Toe flexors (Tibial/S1-S2) 0 Thenar (Med/C8-T1/L/M) 0 0 Calf muscles (Peroneal/L4-5) 0 0 Hypothenar (Uln/C8-T1/L/M) 0 0 Interossei (Uln/C8-T1/L/M) 0 Muscle atrophy / enlargement: no Fasciculations: no Clinical myotonia: no Rippling: no R Reflexes L 0 Biceps brachii (C5-6) 0 0 Brachioradialis (C5-6) 0 0 Triceps (C6-7) 0 no [place] no 0 Quadriceps (L2-4) 0 0 Gastroc-soleus (S1) 0 no Clonus (ankle) no flexion Plantar response (L5-S1) flexion Assessment Mr. Michael Dwyer is an 83-year-old male with recurrent metastatic urothelial carcinoma on Pembrolizumab and Enfortumab presented with fatigue, shortness of breath, muscle weakness, double vision, and left eyelid droop and was hospitalized with concerns for ICI myositis. He has been initiated on IV methylprednisolone as well as IVIG. His strength is improving in the last 24 hours, though neck extensors, deltoids, and hip flexors remained significantly weak. We would recommend completing course of IV methylprednisolone and subsequently initiating 80 mg daily prednisone and completing five day course of IVIG. At this time, there was a clear improvement in the strength in centrally as well in the upper and lower extremities and patient is now s/p 5 days of IVIG. Recommendations: -Patient has now completed IVIG 5 day course with significant improvement in strength - We will organized follow up with Neurology in approximately 1 month of discharge -At this time, it would not be unreasonable to consider a short course of outpatient steroids for up to one month following hospitalization which can be determined by the primary team The neurology consult team will sign off at this time. Please reach out with any additional questions or concerns. 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 PGY-3 Neurology Pager: [phone] * Marga Hernandez P.A.-C., M.S. - 09/13/2024 8:35 AM CDT RST CARD 5 CARDIOLOGY INPATIENT PROGRESS NOTE SUBJECTIVE Mr. Dwyer was seen and examined on morning rounds. He is feeling very well this morning and feels stronger other day. OBJECTIVE TELEMETRY Sinus rhythm, PVCs and one run of 3 beats NSVT INTAKE/OUTPUT Past 24 hours: Intake/Output Summary (Last 24 hours) at 09/13/2024 0835 Last data filed at 09/13/2024 0828 Gross per 24 hour Intake 3156 ml Output 2850 ml Net 306 ml Admission Weight: 129 kg Today's weight: 126 kg Weight change since admit: -3kg Body mass index is 35.81 kg/m??. VITAL SIGNS Temperature: [36.5 ??C-36.7 ??C] 36.7 ??C Heart Rate: [54-104] 68 Resp Rate: [12-33] 20 Blood Pressure: (147-186)/(55-121) 166/69 SpO2: [93 %-99 %] 96 % Weight: [126 kg] 126 kg BMI (Calculated): [35.8 kg/m??] 35.8 kg/m?? Pulse Rate: [59-78] 68 PHYSICAL EXAMINATION Constitutional: Appearance: Not in distress. Chronically ill-appearing. Eyes: Comments: Right exophthalmus, left ptosis Neck: Vascular: JVD normal. Pulmonary: Effort: Pulmonary effort is normal. Breath sounds: Normal breath sounds. No wheezing. No rhonchi. No rales. Cardiovascular: Normal rate. Regular rhythm. Murmurs: There is no murmur. No gallop. No rub. Edema: Comments: 1+ pitting edema of the lower extremities R>L, legs wrapped to the knees Abdominal: General: Bowel sounds are normal. There is distension. Palpations: Abdomen is soft. Hernia: A hernia is present. Comments: Urostomy present Musculoskeletal: Comments: Weakness of the neck muscles with mild drooping of the head Skin: General: Skin is warm and dry. Neurological: General: No focal deficit present. Mental Status: Alert and oriented to person, place and time. DIAGNOSTICS I personally reviewed all radiology and labs from the past 24 hrs. Lab results from 09/13/24: Hemoglobin 12.1, platelet count 122, white blood cell count 11.8 Sodium 138, potassium 4.2, chloride 106, bicarb 19, BUN 72, creatinine 2.14, glucose 101 ASSESSMENT / PLAN #1 ICI myositis and myocarditis #2 Recurrent metastatic urothelial carcinoma with recent initiation of pembrolizumab/Enfortumab (cycle 1 - 08/05/24, cycle 2 - started 08/29/24) s/p (radical cystoprostatectomy with ileal conduit urinary diversion-2011) and adjuvant cisplatin and gemcitabine #3 Post-operative DVT and PE s/p IVC filter placement/removal (2011) #4 Coronary artery disease s/p PCI-RCA x 2 (2005) #5 RUTHY on ASV #6 Hypertension #7 Hyperlipidemia #8 Obesity, BMI 36 #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 Dwyer is a 83 y.o. male with recurrent metastatic urothelial carcinoma who recently started treatment with pembrolizumab/Enfortumab on 08/05/24. He started cycle 2 on 08/29/24. He presented to the local infusion center today and was found to have severe weakness, dyspnea, and ptosis. He was admitted locally and found to have elevated CK (3687), troponin I 0.24 (ref range 0.01-0.04), and mildly elevated BNP 921. Local TTE demonstrated grossly normal biventricular function and an enlarged IVC. 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 He was initiated on high-dose steroids with methylprednisolone and further workup recommended including cardiac MRI, EMG, necrotizing myopathy panel, myasthenia gravis panel. No cardiac MRI was available locally, so he was transferred to [facility] for further management. Oncology team has been closely following ICI toxicity workup was completed. He has been treated with 5 days of IV methylprednisolone (plus a dose at the outside hospital prior to transfer). Will transition to high dose oral prednisone today per oncology recommendations (2mg/kg -> 250mg prednisone). Appreciate oncology recommendations regarding further steroid taper plan. Cardiac MRI did not show any evidence of myocardial inflammation, but interestingly, his troponin Iwas significantly elevated and is downtrending (116->65->53), suggesting possible subacute myocardial inflammation. Troponin T is downtrending as well. He has required intermittent diuresis to offset fluid retention likely related to the steroids. Will continue trend troponin T daily and troponin I M/W/F. Thankfully we have not seen any concerning ventricular arrhythmias (rare isolated PVCs, 3 beat run overnight). Neurology is following and workup for his weakness has been consistent with myositis. Myasthenia gravis has been ruled out. He completed a 5 day course of IVIG (last dose 09/12/24). CK has been trendedand normalized. He has been intermittently hypertensive. His home atenolol has been held due to worsened renal function, but would prefer to avoid introducing another beta alex as heart rates are running quite low. Will continue home losartan 100mg for now with close monitoring of renal function. He has also been initiated on low dose amlodipine but continues to have intermittent hypertension in the setting of high dose steroid use. Will increase amlodipine to 10mg daily and give 40mg IV furosemide to offset fluid retention related to steroids as well as significant PO liquid intake due to increased thirst. He reported abnormal appearance of the urine in his urostomy bag this week. UA is abnormal (WBCs, RBCs, bacteria) but this is chronically the case. He has been afebrile, no flank pain. He has a leukocytosis but this is in the setting of very high steroid dosing. Urine culture had microbial growth, no specific organisms. Will continue to monitor, no additional antibiotics for now (on Bactrim for PJP prophylaxis). PLAN: -- Give 40mg IV furosemide now. May need daily or at least PRN diuretic at discharge while on high dose steroids. -- Increase amlodipine to 10mg daily for elevated BP in setting of high dose steroids (new at discharge) -- Trend CK and troponins -- CK trend: 3687-----> 79 today (WNL) -- Troponin trend: 543->peak 639----->391 today -- Troponin I: 116->65->53 (lab is only run on //) -- Continuous telemetry given high risk for ventricular arrhythmias -- Oncology consulted -- Completed 5 day course of IV methylprednisolone (last on 09/12/24) -- Transition to oral prednisone 250 mg today. PPI and Bactrim while in high dose steroids. 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 -- Home atenolol 25 mg daily held due to impaired renal clearance. No alternate beta blockade at this time as he is quite bradycardic. Marga Hernandez P.A.-C., M.S. 09/13/24 RST CARD 5 I personally spent a total 50 minutes providing and coordinating care today. * Tanya Herrmann P.A.-C. - 09/13/2024 8:04 AM CDT Primary Service: RST CARD 5 Local Oncologist: No care executive team leader to display [facility] Oncologist(s): Casimiro Chavez M.D., Ph.D. Reason(s) for consult: Known cancer diagnosis Suspected Immune Checkpoint Inhibitor (ICI) toxicity Managing medications for ICI toxicity SUBJECTIVE HISTORY OF PRESENT ILLNESS Mr. Michael Dwyer is a 83 y.o. male with metastatic urothelial cancer who recently initiated treatment with enfortumab vedotin and pembrolizumab (received his first treatment on 08/05/2024). Patient presented to his local infusion center at [facility] on 09/06/2024 with plans to receive cycle 2 of therapy but was found to have profound muscle weakness with inability to stand without assistance and weak neck extensor muscles, ptosis, and shortness of breath. He was sent to the local emergency department for further evaluation. Lab work significant for elevated CK of 3687, troponin I of0.24 (ref range 0.01-0.04). 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 Oncology service was consulted following admission for ongoing recs for work-up and management. Patient not seen today. His oncology history is noted below. Oncology History Overview Note May 29, 2011 [...] Enfortumab vedotin-ejfv / Pembrolizumab Start Date: 08/05/2024 I have reviewed his past medical history/past surgical history/allergies/medications and updated asnecessary in the chart. BP (!) 166/69 (BP Location: Right arm;Upper, Patient Position: Sitting) Pulse 68 Temp 36.7 ??C (Oral) Resp 20 Ht 188 cm Wt 126 kg SpO2 96% BMI 35.81 kg/m?? DIAGNOSTICS: I have personally reviewed diagnostic evaluations (labs, pathology, radiology) from this hospitalization. ASSESSMENT / PLAN Mr. Michael Dwyer is a 83 y.o. 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 He reports significant improvement in overall weakness since initiation of steroids. Tolerating steroid therapy well so far. No ectopy on telemetry aside from bradycardia which patient states is his baseline. LAB WORK: Troponin T trend: 543->548->496->517->528->639->497->415 today Troponin I trend: 116->65->53 CK trend: 1259->587->250->102-> 76 LFTs have been trending down IMAGING: Cardiac MRI: Late gadolinium enhancement in the basal to mid inferior and inferoseptal segments; subendocardial distribution with associated regional hypokinesis but no T2 signal abnormality most consistent with chronic infarction. Corticosteroid hx: 09/07 - present: Methylprednisolone 1 g daily (Got 1 gram solumedrol on 09/07 at outside facility prior to transfer) 09/13 - 2 mg/kg PO Prednisone (250 mg) IVIG hx: 09/08-09/12: IVIG load x 5 days Biologics hx: none ONCOLOGY RECOMMENDATIONS: Continue cardiac telemetry Cardiac MRI without clear evidence of myocarditis. Continue to treat for presumed ICI myocarditis given high trop I ICI team to discuss with cardio-oncology Decrease to 250 mg PO prednisone today Titration at the discretion of the ICI team, assessed on a daily basis. PJP prophylaxis with Bactrim and GI prophylaxis with pantoprazole Trend CK and Troponin T daily. Troponin T trending down Obtain Troponin I on Thursday, Thursday, and Thursday Neurology following for management of myositis Neurology has ruled out MG EMG and clinical exam consistent with ICI myositis Continue IVIG 0.4g/kg x 5 days Q8hr respiratory mechanics: NIF PMR, PT/OT, CERTIFIED FORKLIFT OPERATOR consults for aggressive rehab F/U pending myasthenia gravis panel, necrotizing myopathy panel, MyoMarker 3 panel ICI follow up on 09/16 and 09/22 Cardio-Oncology appointment on 09/22 Onc follow up will be scheduled shortly Oncology plan for following: Oncology Consults will continue to see this patient daily. Communication: Treatment plan reviewed with Mr. Dwyer and his family. They expressed understanding. All questions answered to their satisfaction. Paging: Please page Oncology Consults Oncall with any questions at [phone] (service pager). Slim 7A-7P, Tab Hutson Student Nurse on Consult service Aparna Herrmann P.A.-C. * Idalia Hammer R.R.T., L.R.T. - 09/12/2024 9:18 PM CDT [id number]/12/242117 BPAP/CPAP Therapy BPAP/CPAP Interface Full face mask Patient's Own Equipment Mask;Tubing;Patient able to manage equipment on own;Equipment inspected (per site policy) Ventilator Parameters BPAP/CPAP Mode Per Home Settings NPPV EPAP (CPAP) Setting 11 cm H2O Pressure Support (Min) 4 cm H2O Pressure Support (Max) 11 cm H2O Humidification Heated humidifier Patient's home cpap already set up for the night and inspected. Patient declined RT help at this time. Contact RT with any questions or concerns. Electronically signed by: Idalia Hammer R.R.T., L.R.T. 09/12/24 9:19 PM CDT * Allegra Neumann O.Joey., MOT - 09/12/2024 3:55 PM CDT Occupational Therapy Acute Hospital Inpatient Treatment SUBJECTIVE Patient's Name: Michael Dwyer Referring/Attending Provider: Miko Douglas M.D. Reason for Referral: Occupational Therapy Evaluation and Treatment Onset Date: 09/07/2024 History of Present Illness: Michael Dwyer is a 83 y.o. male who was admitted to [facility] in [place] on 09/07/2024 for Myositis [M60.9]. 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 Subjective Comments: Agreeable to therapy session. OBJECTIVE Vital Signs: Vitals monitored throughout session; within normal ranges. Outcome Measures: AM-PAC Inpatient Short Form: Putting on and taking off regular lower body clothing?: A lot Putting on and taking off regular upper body clothing?: A Little Taking care of personal grooming such as brushing teeth?: A Little Bathing (including washing, rinsing, drying)?: A lot Toileting, which includes using toilet, bedpan, or urinal?: Total Eating meals?: None Daily Activities Raw Score (max 24): 15 Daily Activities Standardized Score: 34.69 Interpretation: Based on scoring guidelines using the raw score value: Those going to home had an average score at or above 18 Those going to facility had an average score at or below 17 Clinicians answer the AM-PAC Inpatient Short Form based on observed patient activity and/or clinical judgment (patient can be scored without physically performing each activity). The AM-PAC is one ofmany factors to consider when discharge planning. Cognition: Will further assess and monitor as warranted Cognitive Deficits: disorganized thoughts, perseveration, impaired attention, impaired concentration Therapeutic Interventions: Therapist educated on impacts of vision deficits on daily function, improved recognition of visual symptoms, and self-management techniques during session. Smooth pursuits - deficits noted Saccades - deficits noted (undershoots) Convergence - appearing WNL Patient was left in bedside chair at end of session with call light in reach, all needs met and questions answered. Assessment Discharge Therapy Needs - OT: Ongoing skilled occupational therapy If skilled therapy is recommended, skilled therapy can include occupational therapy provided in home health, outpatient or post-acute facility. The location of these services is determined by patient's care team in partnership with patient/family. Level of Care Needed - OT: Assistance with toileting, Assistance with dressing, Assistance with toilet/shower transfers, Assistance with meal preparation, Assistance with showering/bathing, Assistance with housekeeping, Assistance with transportation, Assistance with shopping Barriers to Discharge Home: Current functional status, Fall risk Clinical Impression: Patient agreeable to education on vision management and strategies this date. Good understanding and participation noted. Patient remains limited secondary to oculomotor deficits, decreased activity tolerance, impaired functional balance, and generalized weakness. Patient presents as below functional baseline and would benefit from increased assistance for IADLs and ADLs as needed from a capable caregiver post-discharge. Patient would continue to benefit from skilled occupational therapy to maximize safety and independence in activities of daily living, functional transfers, and mobility. Plan OT Plan Comments: Next Session: bring vision materials, mobility into bathroom, total body dressing-AE? Functional Goals: OT Goal #1: Patient will complete total body dressing with modified independence to maximize independence and decrease dependence on others. OT Goal #1 Status: Ongoing OT Goal #2: Patient will complete toileting skills including hygiene, clothing management, and transfer with modified independence to maximize independence and decrease dependence on others. OT Goal #2 Status: Ongoing OT Goal #3: Patient will perform standing grooming with modified independence to return to prior level of function. OT Goal #3 Status: Ongoing OT Goal #4: Patient and family will verbalize understanding of recommended home going durable medical equipment. OT Goal #4 Status: Ongoing Progress: Progressing toward goals Rehab potential: Mr. Dwyer has excellent potential to achieve established occupational therapy goalswithin the time frame outlined below. OT Frequency: OT Amount: 1 visit per day OT Frequency: 5 times per week OT Inpatient Duration : Until goals are met or hospital discharge Requires Inpatient OT Follow-Up: Yes OT - Next Inpatient Appointment: 09/13/24 Plan: Continue with current plan Treatment interventions may include: Treatment Interventions: Therapeutic exercise, Therapeutic functional activity, Self-care/home management, Neuromuscular re-education, Cognitive skills training Occupational Therapy Attestation Statement: Patient agrees with the plan of care and goals. Billing: Time Spent with Patient Therapeutic Interventions Home Management Training (min): 32 min Time Tracking Total Timed Units (min): 32 min Total Treatment Time (min): 32 min Allegra Neumann O.T., MOT * Miko Douglas M.D. - 09/12/2024 2:02 PM CDT SUBJECTIVE Inpatient Cardiology 5 Service, Heart Failure Service supervisory progress note. HISTORY OF PRESENT ILLNESS I met with the patient and his family members in his room [id number]. He appeared well. He had nonew symptom complaints. I evaluated the patient in conjunction with Marga Hernandez P.A.-C., M.S., on the Cardiology 5 Service. I met, interviewed, and examined the patient. ASSESSMENT / PLAN I concur with the content of the progress note per Ms. Hernandez from today, including physical diagnosis, diagnostic impression, and plan. Home-going plans were discussed with the patient and family members. We anticipate probable hospital discharge on Thursday this week, September 14, 2024. Miko Douglas M.D. CT CT Job ID: [id number] * Bianca Knott PharmLilianaDLiliana, R.Ph., [facility] - 09/12/2024 1:06 PM CDT Pharmacist Progress Note Reason for admission: severe weakness PMH: recurrent metastatic urothelial carcinoma, CKD4, HTN, sleep apnea, thyroid carcinoma, CAD s/p RHONDA 2005, HLD, gout. Medical History[1] OBJECTIVE CV: HTN-losartan 100 mg, amlodipine 5mg daily Neph: Estimated Creatinine Clearance: 39.1 mL/min (A) (by C-G formula based on SCr of 2.06 mg/dL (H)). allopurinol Heme: methylprednisolone 1 gram q24 hours, IVIG (acetaminophen, diphenhydramine, loratadine); bactrim for PCP prophylaxis. ferrous sulfate PPX: VTE - SQH, pantoprazole (on steroids) Medication Reconciliation: Held: atenolol, HCTZ, simvastatin Changed: TBD New: amlodipine 5mg ASSESSMENT / PLAN Severe weakness in the setting of recurrent metastatic urothelial carcinoma w/ concern for ICI toxicity (neuro w/u consistent with myositis; myasthenia gravis ruled out) . Oncology consulted. Gammagard 0.4 g/kg for 5 doses for concern of myasthenia gravis. Dose is calculated based on IBW of82 kg. Premedication with acetaminophen and diphenhydramine ordered. Last dose scheduled for 09/12/24 Continues methylprednisolone 1 mg q24h for 5 days completed on 09/12, then prednisone po 250mg 6/3 am. Service will write prednisone orders every day. Prophylaxis: PJP (bactrim, (monitor K+), Ca+D and PPI (already there) and RMGs Simvastatin was held in setting of elevated CK; but this is resolved now. Simvastatin could be resumed; although we recommend to wait for now, in setting of myositis. Atenolol placed on hold due to decreased renal function; do not resume as heart rates only in the 60's. High blood pressure may be at least partially due to high dose steroids. Consider increasing amlodipine to 10mg /day. Please check uric acid level. The only one we have is from 2020, and we need to know whether allopurinol 300mg/day is still needed in setting of KALEE. 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 - 09/12/2024 10:49 AM CDT [facility] Wound RN consulted to assess Michael Dwyer skin alterations. Wound assessment, pain, and [place] noted in the flowsheet. No images were taken during this patient assessment. History: Per provider note, Mr. Dwyer is a 83 y.o. male with recurrent metastatic urothelial carcinoma on pembrolizumab and Enfortumab. Assessment: Patient reported this is chronic for him. On assessment, the lower groin folds, scrotumand perineum are with red erythema, moist skin and the skin is intact. Patient agreeable to treatment plan noted below. 09/12/24819 Wound 09/12/24 Intertriginous Dermatitis Perineum Lower Groin Folds Scrotum Date First Assessed/Time First Assessed: 09/12/24819 Present on Original Admission: No Wound Approximate Age at First Assessment: Unknown Primary Wound Type: Intertriginous Dermatitis Location: Perineum Wound Description (Comments): Lower Groi... Pain Score 0 - none *Signs of Infection None Unable to Measure Y *Wound Bed Red;Closed Tissue Exposed None Odor None *Exudate Amount None Trisha-wound Assessment Blanchable erythema;Diggins;Red (moist) *Primary Dressing Other (Comment) (nystatin powder to be ordered) *Primary Dressing Frequency of Change 2x/day & PRN Changed by Unit based nurse Complications none Ongoing management Nursing Documentation done by [facility] RN? Yes Focused assessment completed as patient reported no other concerns and declined further assessment. DRESSING RECOMMENDATIONS: #1 Mild Intertriginous Dermatitis Perineum Lower Groin Folds Scrotum -BID -Cleanse the affected area(s) with foam cleanser and dampened WypAlls, being sure to remove all of the previous product. Pat dry completely. -Apply a thin layer of Nystatin powder to the affected area(s), dust off excess powder. -Leave open to air. Recommended interventions for pressure redistribution and shear reduction: Offload heels on pillows at all times when in bed. Full 30 degree turns side to side every 2 hours with supine positioning only for meals. Reposition at least every hour while in the chair. Keep the HOB below 30 degrees except for meals unless medically contraindicated. Apply a prophylactic sacral Mepilex?? border dressing to cover the coccyx/sacral area. Ensure the dressing is in full contact with the skin to prevent moisture- related skin breakdown. Lift twice daily to assess when used for prevention. Change every 3 days and PRN. Utilize a static air cushion when up to the chair. Recommended interventions for moisture control: InterDry?? Ag placed between folds. Allow at least 2 inches of fabric exposed to air on at least one side of the skin fold for moisture evaporation. Can be used up to 5 days unless soiled with stool or urine. Do not rinse with water. Utilize the breathable incontinence underpads while in bed. Adult briefs should only be worn while ambulating or in the chair. Cleanse with foaming cleanser or wipes after each incontinence episode and for routine hygiene cares. Apply antifungal powder as directed. Consult recommendations: NA Education: Discussed the plan of care with the patient and nursing. They agree to the plan. The WOC RN will sign-off. Please place a wound care consult for any new concerns. Electronically signed by: Soha Hernandez R.N., [place] 09/12/24 10:50 AM CDT * Irene Alberto PRoberta, D.P.T. - 09/12/2024 10:44 AM CDT Physical Therapy Inpatient Treatment SUBJECTIVE Patient's Name: Michael Dwyer Referring/Attending Provider: Miko Douglas M.D. Reason for Referral: Physical Therapy Evaluate and Treat Onset Date: 09/07/2024 History of Present Illness: Michael Dwyer is a 83 y.o. 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 Patient/Caregiver Goals: Return to home and Return to highest level of function Subjective Comments: Agreeable to therapy session. OBJECTIVE Vital Signs Vitals stable per chart review. Vitals taken during session: Position/Activity Blood Pressure Seated,At rest 166/60 (91 MAP) mmHg Seated, after ambulation 186/66 (101 MAP) mmHg Seated,After recovery x2 min 170/57 (90 MAP) mmHg Patient demonstrated shortness of breath towards end of ambulation trial, which improved once seated. Updated RN on the above vitals. Patient denies dizziness, lightheadedness, chest pain, and diaphoresis with mobility this session. Outcome Measures: -[facility] Inpatient Short Form: AM-[facility] Basic Mobility (V.2) How much help from another person do you currently need???If the patient hasn't done an activity recently, how much help from another person do you think he/she would needif he/she tried? 1. Turning from your back to your side while in a flat bed without using bedrails?: A Little 2. Moving from lying on your back to sitting on the side of a flat bed without using bedrails?: A Little 3. Moving to and from a bed to a chair (including a wheelchair)?: A Little 4. Standing up from a chair using your arms (e.g., wheelchair, or bedside chair)?: A Little 5. To walk in hospital room?: A Little 6. Climbing 3-5 steps with a railing?: A Little AM-PAC Basic Mobility (V.2) Raw Score: 18 AM-PAC Basic Mobility (V.2) Standardized Score: 41.05 Interpretation: Based on scoring guidelines using the raw score value: Those going to home had an average score at or above 18 Those going to facility had an average score at or below 17 Clinicians answer the -[facility] Inpatient Short Form based on observed patient activity and/or clinical judgement (patient can be scored without physically performing each activity). The AM-PAC is one of many factors to consider when discharge planning. Therapeutic Interventions: Therapeutic Activities: Time and care was taken to arrange and manage lines and room environment for optimal safety with all patient mobility. SIT TO STAND: - Assist Level: stand by assist of 1 - Device: gait belt and front wheeled walker - Surface: chair - Therapist Delivery: assessed, educated, facilitated, and instructed - Assist/Cues Provided: verbal for upper extremity placement, upright posture, and use of momentum STAND TO SIT: - Assist Level: stand by assist of 1 - Device: gait belt and front wheeled walker - Surface: chair - Therapist Delivery: assessed, educated, and facilitated - Assist/Cues Provided: verbal for alignment with seated surface, breathing technique, eccentric control, hip flexion, safety, and upper extremity placement GAIT: - Distance: 160 meters - Assist Level:stand by assist of 1 - Device: gait belt and front wheeled walker - Quality: decreased base of support, decreased gait speed, decreased step length, downward gaze, forward flexed posture, guarded - Therapist Delivery: assessed, educated, and facilitated - Assist/Cues Provided:verbal for breathing techniques, forward gaze, increased step length, pacing, placement within the walker, terminal hip extension, and upright posture - Comments: Cues for upright posture, pacing, and pursed lip breathing. Patient demonstrated shortness of breath towards end of ambulation trial while talking. This improved once he had a seated restbreak. Vitals were assessed, see above; notified RN. No adverse response noted. Good stability withdynamic mobility. STAIRS: - 2 steps with bilateral handrails - Assist Level: stand by assist of 1 - Device: gait belt - Navigation Pattern: - Ascending: reciprocal - Descending: reciprocal - Therapist Delivery: assessed, educated, and facilitated - Assist/Cues Provided: breathing techniques and pacing - Comments: cues for pacing and to not hold his breath when completing stairs assessment. Ascended forwards; descended backwards. No adverse response noted. THERAPEUTIC EXERCISE: Seated Therapeutic Exercise: - Side: bilateral lower extremity(ies) - Mode: active range of motion - Exercises: ankle pumps, long arc quads, and marching - Repetitions: 10 - Assist/Cues Provided: motor control and pacing EDUCATION: Provided education on role of physical therapy in the acute setting. Collaborated with patient and/or family on goals and plan of care. DME: -Educated patient/caregiver regarding recommended use of mobility equipment. The patient/family educated on safe transfer techniques with functional mobility/activity. The patient's status was discussed and the following coordination of care occurred with the RN Patient was left in bedside chair at end of session with call light in reach, all needs met and questions answered. Assessment Discharge Therapy Needs - PT: Ongoing skilled physical therapy (pending hospital course) If skilled therapy is recommended, skilled therapy can include physical therapy provided by home health, outpatient clinic, or a post-acute facility. The location of these services is determined by the patient's care team in partnership with patient/family. Level of Care Needed - PT: Assistance with transfers (Comment), Assistance with walking and moving around the home Barriers to Discharge Home: Current functional status, Fall risk, Safety concerns Equipment Recommended - PT: Front-wheeled walker Patient owns front wheeled walker. From a physical therapy perspective, the level of care above has been recommended for Mr. Dwyer after hospital discharge. This level of care is based on his functional abilities during today's session. This may change throughout the hospital course and will be updated as appropriate. Clinical Impression: Patient is progressing well towards therapy goals as demonstrated by ambulating 160 meters with front wheeled walker this session. He did experience shortness of breath towards end of ambulation trial; however, this improved once he was seated and focused on pursed lip breathing. No adverse response noted. Patient demonstrates impaired strength, balance, and activity tolerance. Recommend stand byassistance of 1 for safety as he mobilizes at this time. How these needs are met after hospitalization would be best determined in collaboration with the patient/family and our care management team. Patient is below their functional baseline and would benefit from inpatient physical therapy to increase safety and independence with functional mobility. From a physical therapy standpoint, patient will continue to benefit from skilled therapy interventionto restore and maximize function, maximize safety, and optimize mobility. Activity Recommendations During Hospitalization: Encourage active participation in ADL's Encourage up to chair 3-5x/day to improve functional strength and promote mobility Recommended DME and Assist: Assist x1, Gait Belt, and FWW Ambulate in hallway 3-5x/day to promote improvement in cardiovascular endurance Rehab potential: Mr. Dwyer has Good potential to achieve established physical therapy goals within the time frame outlined below. Progress: Progressing toward goals Plan PT Plan Comments: Continue to progress functional mobility and lower extremity exercises appropriate. Assess bed mobility with adjustable bed features/no bed rail. Continue to work on sit<> stand transfers and progress ambulation beginning with use of front wheeled walker increasing distance and frequency as tolerated. Weaning from walker as appropriate. Functional Goals: PT Inpatient Goals PT Goal #1: Patient will be independent with supine<>sit transfers with bed flat/no bed rail to progress towards functional independence. PT Goal #1 Status: Ongoing PT Goal #2: Patient will be independent/modified independent utilizing most appropriate gait devicewith sit<>stand transfers to progress towards functional independence. PT Goal #2 Status: Progressing PT Goal #3: Patient will be independent/modified independent utilizing most appropriate gait deviceambulating a distance of 60 m to progress towards functional independence. PT Goal #3 Status: Progressing Treatment Plan: Plan: Continue with current plan PT Amount: 1 visit per day PT Frequency: 5 times per week PT Inpatient Duration : Until goals are met or hospital discharge Requires Inpatient Follow-Up: Yes PT - Next Inpatient Appointment: 09/13/24 Patient agrees with the plan of care and goals. Treatment interventions may include: Treatment/Interventions: Therapeutic exercise, Therapeutic functional activity, Self-care/home management, Neuromuscular re-education, Gait training Billing: Time Spent with Patient Therapeutic Interventions Gait Training (min): 8 min Therapeutic Activity (min): 18 min Time Tracking Total Timed Units (min): 26 min Total Treatment Time (min): 26 min In addition to the total treatment time stated above, approximately 18 minutes were spent on non-billable activities such as chart review, documentation, and/or interdisciplinary communication for the betterment of the patient's care. Nkechi Alberto P.T., D.P.T. * Kelsey Ye D.T.R. - 09/12/2024 8:51 AM CDT Percentage of Meals Eaten for the past 72 hrs: Percent Meals Eaten (%) 09/12/24 0700 100 09/11/24 1328 75 09/11/24 0741 100 09/10/24 1700 100 09/10/24 1200 100 09/10/24 0732 100 09/09/24 1707 100 09/09/24 0856 100 Net IO Since Admission: -4,631 mL [09/12/24 0851] Patient was assessed and determined to be nutritionally stable. Clinical nutrition will sign off but will continue to screen per departmental guidelines. Please reconsult for any questions/concerns regarding patient's nutritional status. For questions about patient's nutritional care please contact pager [phone] on weekdays or [phone] on weekends/holidays. * Tanya Herrmann P.A.-C. - 09/12/2024 8:04 AM CDT Primary Service: RST CARD 5 Local Oncologist: No care executive team leader to display [facility] Oncologist(s): Casimiro Chavez M.D., Ph.D. Reason(s) for consult: Known cancer diagnosis Suspected Immune Checkpoint Inhibitor (ICI) toxicity Managing medications for ICI toxicity SUBJECTIVE HISTORY OF PRESENT ILLNESS Mr. Michael Dwyer is a 83 y.o. male with metastatic urothelial cancer who recently initiated treatment with enfortumab vedotin and pembrolizumab (received his first treatment on 08/05/2024). Patient presented to his local infusion center at [facility] on 09/06/2024 with plans to receive cycle 2 of therapy but was found to have profound muscle weakness with inability to stand without assistance and weak neck extensor muscles, ptosis, and shortness of breath. He was sent to the local emergency department for further evaluation. Lab work significant for elevated CK of 3687, troponin I of0.24 (ref range 0.01-0.04). 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 Oncology service was consulted following admission for ongoing recs for work-up and management. Michael is doing well today. mentions that his strength has greatly improved including his neck muscles. Overall tolerating the high dose steroids well. His oncology history is noted below. Oncology History Overview Note May 29, 2011 [...] Enfortumab vedotin-ejfv / Pembrolizumab Start Date: 08/05/2024 I have reviewed his past medical history/past surgical history/allergies/medications and updated asnecessary in the chart. BP 154/64 (BP Location: Right arm;Upper, Patient Position: Semi-recumbent) Pulse (!) 58 Temp 36.5 ??C (Oral) Resp 23 Ht 188 cm Wt 127 kg SpO2 97% BMI 36.00 kg/m?? DIAGNOSTICS: I have personally reviewed diagnostic evaluations (labs, pathology, radiology) from this hospitalization. ASSESSMENT / PLAN Mr. Michael Dwyer is a 83 y.o. 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 He reports significant improvement in overall weakness since initiation of steroids. Tolerating steroid therapy well so far. No ectopy on telemetry aside from bradycardia which patient states is his baseline. LAB WORK: Troponin T trend: 543->548->496->517->528->639->497->415 today Troponin I trend: 116->65->53 CK trend: 1259->587->250->102-> 76 LFTs have been trending down IMAGING: Cardiac MRI: Late gadolinium enhancement in the basal to mid inferior and inferoseptal segments; subendocardial distribution with associated regional hypokinesis but no T2 signal abnormality most consistent with chronic infarction. Corticosteroid hx: 09/07 - present: Methylprednisolone 1 g daily (Got 1 gram solumedrol on 09/07 at outside facility prior to transfer) 09/13 - 2 mg/kg PO Prednisone (250 mg) IVIG hx: 09/08-09/12: IVIG load x 5 days Biologics hx: none ONCOLOGY RECOMMENDATIONS: Continue cardiac telemetry Cardiac MRI without clear evidence of myocarditis. 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 Decrease to 250 mg PO prednisone on 09/13 PJP prophylaxis with Bactrim and GI prophylaxis with pantoprazole Trend CK and Troponin T daily. Troponin T trending down Obtain Troponin I on Thursday, Thursday, and Thursday Neurology following for management of myositis Neurology has ruled out MG EMG and clinical exam consistent with ICI myositis Continue IVIG 0.4g/kg x 5 days Q8hr respiratory mechanics: NIF PMR, PT/OT, CERTIFIED FORKLIFT OPERATOR consults for aggressive rehab F/U pending myasthenia gravis panel, necrotizing myopathy panel, MyoMarker 3 panel Will work on follow up with both ICI and Oncology Oncology plan for following: Oncology Consults will continue to see this patient daily. Communication: Treatment plan reviewed with Mr. Dwyer and his family. They expressed understanding. All questions answered to their satisfaction. Paging: Please page Oncology Consults Oncall with any questions at [phone] (service pager). Slim 7A-7P, [facility] [employer] Student Nurse on Consult service Aparna Herrmann P.A.-C. * Herlinda Mcclain L.R.T., LEAD ETL DEVELOPER-ACCS - 09/12/2024 8:01 AM CDT 09/12/24 0800 Respiratory Mechanics (Volumes/Pressures) Max Expiratory Pressure 60 cm H2O Max Inspiratory Pressure -55 cm H2O Vital Capacity 3.84 Liters Predicted Vital Capacity 4.17 Liters Patient Position Sitting Patient Effort Good $Respiratory Mechanics Yes Respiratory Mechanics completed QAM. RT reached out to service and since mechanics have been appropriate order has been discontinued. Electronically signed by: Aixa Barron, LEAD ETL DEVELOPER-ACCS 09/12/24 8:01 AM CDT * Marga Hernandez P.A.-C., M.S. - 09/12/2024 7:35 AM CDT RST CARD 5 CARDIOLOGY INPATIENT PROGRESS NOTE SUBJECTIVE Mr. Dwyer was seen and examined on morning rounds. He reports feeling elated about the progress hehas made since his admission. Weakness is markedly improved. He denies any pain or dyspnea and is not bothered by the small amount of peripheral edema. OBJECTIVE TELEMETRY Sinus rhythm, no alarms overnight INTAKE/OUTPUT Past 24 hours: Intake/Output Summary (Last 24 hours) at 09/12/2024 0735 Last data filed at 09/12/2024 0734 Gross per 24 hour Intake 1820 ml Output 2450 ml Net -630 ml Admission Weight: 129 kg Today's weight: 127 kg Weight change since admit: -2kg Body mass index is 36 kg/m??. VITAL SIGNS Temperature: [36.4 ??C-36.8 ??C] 36.5 ??C Heart Rate: [48-101] 63 Resp Rate: [10-29] 23 Blood Pressure: (152-177)/(59-72) 154/64 SpO2: [81 %-98 %] 97 % Weight: [127 kg] 127 kg BMI (Calculated): [36 kg/m??] 36 kg/m?? Pulse Rate: [58-75] 58 PHYSICAL EXAMINATION Constitutional: Appearance: Not in distress. Chronically ill-appearing. Eyes: Comments: Right exophthalmus, left ptosis Neck: Vascular: JVD normal. Pulmonary: Effort: Pulmonary effort is normal. Breath sounds: Normal breath sounds. No wheezing. No rhonchi. No rales. Cardiovascular: Normal rate. Regular rhythm. Murmurs: There is no murmur. No gallop. No rub. Edema: Comments: 1+ pitting edema of the lower extremities R>L Abdominal: General: Bowel sounds are normal. There is distension. Palpations: Abdomen is soft. Hernia: A hernia is present. Comments: Urostomy present Musculoskeletal: Comments: Weakness of the neck muscles resulting in some drooping of the head Skin: General: Skin is warm and dry. Neurological: General: No focal deficit present. Mental Status: Alert and oriented to person, place and time. DIAGNOSTICS I personally reviewed all radiology and labs from the past 24 hrs. 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 with recent initiation of pembrolizumab/Enfortumab (cycle 1 - 08/05/24, cycle 2 - started 08/29/24) s/p (radical cystoprostatectomy with ileal conduit urinary diversion-2011) and adjuvant cisplatin and gemcitabine #3 Post-operative DVT and PE s/p IVC filter placement/removal (2011) #4 Coronary artery disease s/p PCI-RCA x 2 (2005) #5 RUTHY on ASV #6 Hypertension #7 Hyperlipidemia #8 Obesity, BMI 36 #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 Dwyer is a 83 y.o. male with recurrent metastatic urothelial carcinoma who recently started treatment with pembrolizumab/Enfortumab on 08/05/24. He started cycle 2 on 08/29/24. He presented to the local infusion center today and was found to have severe weakness, dyspnea, and ptosis. He was admitted locally and found to have elevated CK (3687), troponin I 0.24 (ref range 0.01-0.04), and mildly elevated BNP 921. Local TTE demonstrated grossly normal biventricular function and an enlarged IVC. 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 He was initiated on high-dose steroids with methylprednisolone and further workup recommended including cardiac MRI, EMG, necrotizing myopathy panel, myasthenia gravis panel. No cardiac MRI was available locally, so he was transferred to [facility] for further management. Oncology team has been closely following ICI toxicity workup was completed. He has been treated with 5 days of IV methylprednisolone (plus a dose at the outside hospital prior to transfer). Will planto transition to high dose oral prednisone tomorrow per oncology recommendations (2mg/kg -> 250mg prednisone). Appreciate oncology recommendations regarding further steroid taper plan. Cardiac MRI did not show any evidence of myocardial inflammation, but interestingly, his troponin Iwas significantly elevated and is downtrending (116->65->53), suggesting possible subacute myocardial inflammation. Troponin T is downtrending as well. He has required intermittent diuresis to offset fluid retention likely related to the steroids. Will continue trend troponin T daily and troponin I M/W/. Thankfully we have not seen any concerning ventricular arrhythmias. Neurology is following and workup for his weakness has been consistent with myositis. Myasthenia gravis has been ruled out. He was initiated on a 5 day course of IVIG, last dose today. CK has been trended and normalized. He has been intermittently hypertensive. His home atenolol has been held due to worsened renal function, but would prefer to avoid introducing another beta alex as heart rates are running quite low. Will continue home losartan 100mg for now with close monitoring of renal function. He has also been initiated on low dose amlodipine but continues to have intermittent hypertension in the setting of high dose steroid use. He reported abnormal appearance of the urine in his urostomy bag this week. UA is abnormal (WBCs, RBCs, bacteria) but this is chronically the case. He has been afebrile, no flank pain. He has a leukocytosis but this is in the setting of very high steroid dosing. Urine culture had microbial growth, no specific organisms. Will continue to monitor, no additional antibiotics for now (on Bactrim for PJP prophylaxis). PLAN: -- Give 40mg IV furosemide now -- Trend CK and troponins -- CK trend: 3687-----> 76 today (WNL) -- Troponin trend: 543->peak 639----->415 today -- Troponin I: 116->65->53 today (lab is only run on M//) -- Continuous telemetry given high risk for ventricular arrhythmias if present -- Oncology consulted -- Continue IV methylprednisolone 1g daily. PPI and Bactrim while in high dose steroids. -- Plan to transition to oral prednisone 2mg/kg (250mg) starting tomorrow -- Daily respiratory naval aircrewman mechanical assessments reassuring - will discontinue -- Neurology consulted for myositis and myasthenia gravis management recommendations -- Continue IVIG 0.4g/kg x 5 days (based on ideal body weight - 82.2kg), last dose today -- PMR, PT/OT, CERTIFIED FORKLIFT OPERATOR consults for aggressive rehab -- Continue amlodipine 5mg daily for elevated BP -- Continue home medications including allopurinol 300 mg daily, ferrous sulfate 65 mg 3 times weekly, losartan 100 mg daily, and Senokot 2 tablets BID. -- Home atenolol 25 mg daily held due to impaired renal clearance. No alternate beta blockade at this time as he is quite bradycardic. Marga Hernandez P.A.-C., M.S. 09/12/24 RST CARD 5 I personally spent a total 50 minutes providing and coordinating care today. * Alxi Jaruegui R.R.T., L.R.TLiliana - 09/11/2024 11:35 PM CDT 09/11/24 2333 BPAP/CPAP Therapy BPAP/CPAP Interface Full face mask Patient's Own Equipment Mask;Tubing;Equipment inspected (per site policy);Patient able to manage equipment on own Skin barrier Refused Pt requested to run the mask under warm water. Electronically signed by: Alix Jauregui R.R.T., L.R.TLiliana 09/11/24 11:36 PM CDT * Broderick Merritt P.T.Eliza - 09/11/2024 5:29 PM CDT 09/11/24 1728 Reason Therapy Missed Reason Therapy Missed Patient declined therapy Physical therapy attempted to see patient on 3 different occasions as patient requested therapist to return however he declined after eating his supper. Physical therapy will attempt to see patient tomorrow as able. * Miko Douglas M.D. - 09/11/2024 1:38 PM CDT SUBJECTIVE Cardiology 5 Heart Failure Service progress note. HISTORY OF PRESENT ILLNESS I met with the patient and his in his room [id number]. He appeared well, seated upright in the chair at the bedside. He has no symptom complaints. Indeed, he reports he is feeling considerablybetter in terms of his strength and diminished myalgias. His cardiac enzymes and skeletal muscle enzymes continued to trend downward. ASSESSMENT / PLAN We continue to adhere to the protocol as advised by our colleagues from Oncology. He will complete day 5 tomorrow. The patient and his are interested in discussing discharge plans. We will review this again on Thursday with our colleagues in terms of ongoing need for possible hospitalization. From a cardiovascular standpoint he appears quite stable. 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 Total time 25 minutes. Miko Douglas M.D. CT CT Job ID: [id number] * Adriana Dolan M.D., M.S. - 09/11/2024 1:09 PM CDT Images from the original note were not included. Neurology Consult Follow-Up Note SUBJECTIVE Mr. Michael Dwyer is an 83-year-old male with recurrent metastatic urothelial carcinoma on Pembrolizumab and Enfortumab presented with fatigue, shortness of breath, muscle weakness, double vision, and left eyelid droop and was hospitalized with concerns for ICI myositis. INTERVAL EVENTS: -Sleep well, eating well and overall improvement in shortness of breathe - Reported approximately 70% improvement in strength specifically in his neck and lower extremities -Patient is now able to walk with assistance and able to participate in PT OBJECTIVE Mental status: Alert and oriented to time, place and person Gait: Not assessed. Coordination: Finger to nose and heel to medley are normal bilaterally. Tremor: none Speech: normal. Tone: normal Cranial nerves R Muscle strength L R L Frontalis Visual acuity 0 Orbicularis oculi 0 Pupils 0 Lower facial muscles 0 0 Light reflex 0 0 Temporal-Mass[place] 0 0 Ptosis 0 0 Palate-Pharynx 0 0 Extraocular muscles 0 0 Sternocleidomastoid 0 0 Trapezius 0 0 Hearing 0 0 Genioglossus 0 Muscle atrophy/ enlargement: no Fasciculations: no R Muscle, strength L R Muscle, strength L Neck Trunk -1 Neck flexors -1 Abdominal muscles -.5 Neck extensors -.5 Paraspinals Upper Limbs Lower Limbs Supraspinatus (Suprascap/C5/U) -2 Iliopsoas (Femoral/L2-3) -2 Infraspinatus (Suprascap/C5/U) 0 Adductors, thigh (Obt/L2-4) 0 0 Pectoralis (Lat pec/med pec, C4-6/C6-8) 0 Gluteus medius (SupGlu/L4-S1) -1 Deltoid (Axil/C5-6/U/P) -1 Gluteus max (InfGlu/L5-S2) 0 Biceps brachii (Musc/C5-6/U/L) 0 -.5 Quadriceps (Femoral/L2-4) -.5 Brachioradialis (Rad/C6/U/P) -.5 Hamstrings (Sciatic/L5-S1) -.5 Supinator/pronator (Rad/C6/U+M/P) 0 Tibialis anterior (DeepPer/L4-5) 0 0 Triceps (Rad/C6-8/All/P) 0 0 Peronei (SupPer/L5-S1) 0 0 Wrist extensor (Rad/C6-7/U+M/P) 0 0 EHL (DeepPer/L5-S1) 0 0 Wrist flexors (Med/C6-7/U+M/L) 0 0 Toe extensors (Peroneal/L5-D1) 0 0 Digit extensors (Rad/C7-8/M+L/P) 0 Tibialis post. (Tibial/L5-S1) 0 Digit flexors (Med/C7-8/M+L/M+L) 0 Toe flexors (Tibial/S1-S2) 0 Thenar (Med/C8-T1/L/M) 0 0 Calf muscles (Peroneal/L4-5) 0 0 Hypothenar (Uln/C8-T1/L/M) 0 0 Interossei (Uln/C8-T1/L/M) 0 Muscle atrophy / enlargement: no Fasciculations: no Clinical myotonia: no Rippling: no R Reflexes L 0 Biceps brachii (C5-6) 0 0 Brachioradialis (C5-6) 0 0 Triceps (C6-7) 0 no [place] no 0 Quadriceps (L2-4) 0 0 Gastroc-soleus (S1) 0 no Clonus (ankle) no flexion Plantar response (L5-S1) flexion Assessment Mr. Michael Dwyer is an 83-year-old male with recurrent metastatic urothelial carcinoma on Pembrolizumab and Enfortumab presented with fatigue, shortness of breath, muscle weakness, double vision, and left eyelid droop and was hospitalized with concerns for ICI myositis. He has been initiated on IV methylprednisolone as well as IVIG. His strength is improving in the last 24 hours, though neck extensors, deltoids, and hip flexors remained significantly weak. We would recommend completing course of IV methylprednisolone and subsequently initiating 80 mg daily prednisone, completing five day course of IVIG, cardiac workup including cardiac MRI per primary team, continuing to trend creatinine kinase and troponins, and aggressive rehab with PMR, PT, OT, and CERTIFIED FORKLIFT OPERATOR as able. At this time, there wasa clear improvement in the strength in centrally as well in the upper and lower extremities. 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 PGY-3 Neurology Pager: [phone] * Africa Brown Pharm.D., R.Ph. - 09/11/2024 11:51 AM CDT Pharmacist Progress Note Reason for admission: severe weakness PMH: recurrent metastatic urothelial carcinoma, CKD4, HTN, sleep apnea, thyroid carcinoma, CAD s/p RHONDA 2005, HLD, gout. Medical History[1] OBJECTIVE CV: HTN-losartan 100 mg, amlodipine 5mg daily Neph: Estimated Creatinine Clearance: 39.5 mL/min (A) (by C-G formula based on SCr of 2.04 mg/dL (H)). allopurinol Heme: methylprednisolone 1 gram q24 hours, IVIG (acetaminophen, diphenhydramine, loratadine); bactrim for PCP prophylaxis. ferrous sulfate PPX: VTE - SQH, pantoprazole (on steroids) Medication Reconciliation: Held: atenolol, HCTZ, simvastatin Changed: TBD New: amlodipine 5mg ASSESSMENT / PLAN Severe weakness in the setting of recurrent metastatic urothelial carcinoma w/ concern for ICI toxicity and IC induced myasthenia gravis. Oncology consulted. ICI toxicity workup pending MRI, EMG, necrotizing myopathy panel and myasthenia gravis panel. Gammagard 0.4 g/kg for 5 doses for concern of myasthenia gravis. Dose is calculated based on IBW of82 kg. Premedication with acetaminophen and diphenhydramine ordered. Continues methylprednisolone 1 mg q24h for 5 days, subsequently go to prednisone 80 mg daily with taper (this should start 09/13) Holding simvastatin in setting of elevated CK. Holding atenolol since it is renally eliminated and likely contributing to bradycardia. If appropriate consider a non-renally eliminated beta alex in its place. Africa Brown Pharm.D., R.Ph. [1] Past Medical History: Diagnosis Date Apnea Sleep Obstructive Uses CPAP Benign Prostatic Hyperplasia With Lower Urinary Tract Symptom 07/25/2009 LW Modifier: s/p TURP ; BPH Age Related Prostate Ca Risk w Obst BenignProstatic Hyperplasia Localized 2011 Blood Transfusion No Diagnosis 2011 2-3 units Cataract 2015 Chronic Kidney Disease NOS Stage 4 Coronary Artery Disease NOS 2006 2 stents placed Defect Coagulation (HCC) 2012 Hernia Hyperlipidemia 2003 Hypertension NOS 2003 Malignant Neoplasm Of Bladder (HCC) 2007 Malignant Neoplasm Of Thyroid Papillary (HCC) 09/12/2022 Nodule Thyroid 2016 Other Injury Of Unspecified Body Region 1958 foot Other Pulmonary Embolism Without Acute Cor Pulmonale (HCC) 07/14/2011 Peripheral Vascular Disease Lower extremities Polyp Colon 2012 Thromboembolism NOS 2011 left leg Urostomy Status Post (HCC) * Ayana Frank M.B., B.Ch. - 09/11/2024 9:04 AM CDT Primary Service: RST CARD 5 Local Oncologist: No care executive team leader to display [facility] Oncologist(s): Casimiro Chavez M.D., Ph.D. Reason(s) for consult: Known cancer diagnosis Suspected Immune Checkpoint Inhibitor (ICI) toxicity Managing medications for ICI toxicity SUBJECTIVE HISTORY OF PRESENT ILLNESS Mr. Michael wDyer is a 83 y.o. male with metastatic urothelial cancer who recently initiated treatment with enfortumab vedotin and pembrolizumab (received his first treatment on 08/05/2024). Patient presented to his local infusion center at [place] on 09/06/2024 with plans to receive cycle 2 of therapy but was found to have profound muscle weakness with inability to stand without assistance and weak neck extensor muscles, ptosis, and shortness of breath. He was sent to the local emergency department for further evaluation. Lab work significant for elevated CK of 3687, troponin I of0.24 (ref range 0.01-0.04). 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 Oncology service was consulted following admission for ongoing recs for work-up and management. Met with patient and his family today. He is doing well and hoping for discharge soon. His oncology history is noted below. Oncology History Overview Note May 29, 2011 [...] Enfortumab vedotin-ejfv / Pembrolizumab Start Date: 08/05/2024 I have reviewed his past medical history/past surgical history/allergies/medications and updated asnecessary in the chart. BP 150/56 Pulse (!) 55 Temp 36.5 ??C (Oral) Resp 17 Ht 188 cm Wt 127 kg SpO2 95% BMI 36.09 kg/m?? DIAGNOSTICS: I have personally reviewed diagnostic evaluations (labs, pathology, radiology) from this hospitalization. ASSESSMENT / PLAN Mr. Michael Dwyer is a 83 y.o. 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 He reports significant improvement in overall weakness since initiation of steroids. Tolerating steroid therapy well so far. No ectopy on telemetry aside from bradycardia which patient states is his baseline. LAB WORK: Troponin T trend: 543->548->496->517->528->639->497 today Troponin I trend: 116->in process CK trend: 1259->587->250->102 today LFTs have been trending down (today's in process) IMAGING: Cardiac MRI: Late gadolinium enhancement in the basal to mid inferior and inferoseptal segments; subendocardial distribution with associated regional hypokinesis but no T2 signal abnormality most consistent with chronic infarction. Corticosteroid hx: 09/07 - present: Methylprednisolone 1 g daily (plan for 5 day course) IVIG hx: 09/08: Initiated IVIG load x 5 days Biologics hx: none ONCOLOGY RECOMMENDATIONS: Continue cardiac telemetry Cardiac MRI without clear evidence of myocarditis. Continue to treat for presumed ICI myocarditis given high trop I ICI team to discuss with cardio-oncology Continue daily IV methylprednisolone 1gm daily for 5 days; likely switch to orals early this week and discharge home Thursday/Thursday Titration at the discretion of the ICI team, assessed on a daily basis. PJP prophylaxis with Bactrim and GI prophylaxis with pantoprazole Trend CK and Troponin T daily. Rising troponin T trend noted, we note cardiology plans to continue monitoring given he is clinically doing well Obtain Troponin I on Thursday, Thursday, and Thursday Neurology following for management of myositis Neurology has ruled out MG EMG and clinical exam consistent with ICI myositis Continue IVIG 0.4g/kg x 5 days Q8hr respiratory mechanics: NIF PMR, PT/OT, CERTIFIED FORKLIFT OPERATOR consults for aggressive rehab F/U pending myasthenia gravis panel, necrotizing myopathy panel, MyoMarker 3 panel Oncology plan for following: Oncology Consults will continue to see this patient daily. Communication: Treatment plan reviewed with Mr. Dwyer and his family. They expressed understanding. All questions answered to their satisfaction. Paging: Please page Oncology Consults Oncall with any questions at [phone] (service pager). Slim 7A-7P, [facility] Student Nurse on Consult service Markie Jefferson., B.Ch. * Yanique Moreno N - 09/11/2024 8:53 AM CDT 09/11/24 0740 Respiratory Mechanics (Volumes/Pressures) Max Expiratory Pressure 60 cm H2O Max Inspiratory Pressure -55 cm H2O Vital Capacity 3.61 Liters Predicted Vital Capacity 4.17 Liters Patient Position Sitting Patient Effort Good $Respiratory Mechanics (Yes) Patient seen for respiratory mechanics, patient provided good effort. Continue to monitor and assess mechanics as scheduled. Electronically signed by: Yanique Moreno 09/11/24 8:54 AM CDT Under the direction of Dora Garcia LEAD ETL DEVELOPER * Sara Arriola R.R.T., L.R.T. - 09/10/2024 10:27 PM CDT 09/10/24 2220 BPAP/CPAP Therapy BPAP/CPAP Interface Full face mask Patient's Own Equipment Mask;Tubing;Equipment inspected (per site policy);BPAP Skin barrier Refused Ventilator Parameters BPAP/CPAP Mode Other (Comment) (ASV) NPPV EPAP (CPAP) Setting 11 cm H2O Pressure Support (Min) 4 cm H2O Pressure Support (Max) 11 cm H2O Humidification Heated humidifier Patient placed on his own BiPAP. No O2 bleed in required. Humidifier topped up with inhalation water. Contact RT for further assistance. Electronically signed by: Rabia Arriola R.R.T., L.R.T. 09/10/24 10:27 PM CDT * Gisella Goodwin Pharm.DLiliana, R.Ph., BCPS - 09/10/2024 1:42 PM CDT Pharmacist Progress Note Reason for admission: severe weakness PMH: recurrent metastatic urothelial carcinoma, CKD4, HTN, sleep apnea, thyroid carcinoma, CAD s/p RHONDA 2005, HLD, gout. Medical History[1] OBJECTIVE CV: HTN-losartan 100 mg Neph: Estimated Creatinine Clearance: 40.9 mL/min (A) (by C-G formula based on SCr of 1.97 mg/dL (H)). allopurinol Heme: methylprednisolone 1 gram q24 hours, IVIG; bactrim for PCP prophylaxis. PPX: SQH, pantoprazole (on steroids) Medication Reconciliation: Held: atenolol, HCTZ, simvastatin Changed: TBD New: TBD ASSESSMENT / PLAN Severe weakness in the setting of recurrent metastatic urothelial carcinoma w/ concern for ICI toxicity and IC induced myasthenia gravis. Oncology consulted. ICI toxicity workup pending MRI, EMG, necrotizing myopathy panel and myasthenia gravis panel. Gammagard 0.4 g/kg for 5 doses for concern of myasthenia gravis. Dose is calculated based on IBW of82 kg. Premedication with acetaminophen and diphenhydramine ordered. Continues methylprednisolone 1 mg q24h for 5 days, subsequently go to prednisone 80 mg daily with taper (this should start 09/13) Holding simvastatin in setting of elevated CK. Holding atenolol since it is renally eliminated and likely contributing to bradycardia. If appropriate consider a non-renally eliminated beta alex in its place. Hematuria, UA pending. Gisella Goodwin Pharm.D., R.Ph., BCPS [1] Past Medical History: Diagnosis Date Apnea Sleep Obstructive Uses CPAP Benign Prostatic Hyperplasia With Lower Urinary Tract Symptom 07/25/2009 LW Modifier: s/p TURP ; BPH Age Related Prostate Ca Risk w Obst BenignProstatic Hyperplasia Localized 2011 Blood Transfusion No Diagnosis 2011 2-3 units Cataract 2015 Chronic Kidney Disease NOS Stage 4 Coronary Artery Disease NOS 2006 2 stents placed Defect Coagulation (HCC) 2012 Hernia Hyperlipidemia 2003 Hypertension NOS 2003 Malignant Neoplasm Of Bladder (HCC) 2008 Malignant Neoplasm Of Thyroid Papillary (HCC) 09/12/2022 Nodule Thyroid 2016 Other Injury Of Unspecified Body Region 1958 foot Other Pulmonary Embolism Without Acute Cor Pulmonale (HCC) 07/14/2011 Peripheral Vascular Disease Lower extremities Polyp Colon 2012 Thromboembolism NOS 2011 left leg Urostomy Status Post ([facility]) * Miko Douglas M.D. - 09/10/2024 1:29 PM CDT SUBJECTIVE Inpatient Cardiology 5 Heart Failure Service. HISTORY OF PRESENT ILLNESS I met with the patient and his family members in his room [id number]. He appeared well. He is afebrile and hemodynamically stable. He and his had many questions regarding his management. He feels that his strength has continued to improve. His muscle aching has essentially resolved. It seems he still has significant weakness of neck and shoulder muscles. ASSESSMENT / PLAN We continue on with the recommended protocol. We will continue to interact with our colleagues fromNeurology and Oncology regarding optimal management. The patient is hopeful to be discharged from hospital as soon as possible. I indicated to him he would be in a minimum of 5 days with possible discharge on Thursday pending his clinical course. He would need high-dose oral corticosteroids at hospital discharge. 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 CT CT Job ID: [id number] * Yanique Moreno N - 09/10/2024 9:19 AM CDT 09/10/24 0840 Respiratory Mechanics (Volumes/Pressures) Max Expiratory Pressure 55 cm H2O Max Inspiratory Pressure -60 cm H2O Vital Capacity 3.59 Liters Predicted Vital Capacity 4.17 Liters Patient Position Sitting Patient Effort Good Pain Score 0 - No pain $Respiratory Mechanics (Yes) Patient seen for mechanics. Patient completed mechanics with strong effort. Electronically signed by: Yanique Moreno 09/10/24 9:20 AM CDT' Under the direction of Dora Garcia LEAD ETL DEVELOPER * Yogi Olivera M.D. - 09/10/2024 8:35 AM CDT MEDICAL ONCOLOGY CONSULT SERVICE: CONSULT NOTE Primary Service: RST CARD 5 Local Oncologist: No care executive team leader to display [facility] Oncologist(s): Casimiro Chavez M.D., Ph.D. Reason(s) for consult: Known cancer diagnosis Suspected Immune Checkpoint Inhibitor (ICI) toxicity Managing medications for ICI toxicity SUBJECTIVE HISTORY OF PRESENT ILLNESS Mr. Michael Dwyer is a 83 y.o. male with metastatic urothelial cancer who recently initiated treatment with enfortumab vedotin and pembrolizumab (received his first treatment on 08/05/2024). Patient presented to his local infusion center at [facility] on 09/06/2024 with plans to receive cycle 2 of therapy but was found to have profound muscle weakness with inability to stand without assistance and weak neck extensor muscles, ptosis, and shortness of breath. He was sent to the local emergency department for further evaluation. Lab work significant for elevated CK of 3687, troponin I of0.24 (ref range 0.01-0.04). 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 Oncology service was consulted following admission for ongoing recs for work-up and management. His oncology history is noted below. Oncology History Overview Note May 29, 2011 [...] Enfortumab vedotin-ejfv / Pembrolizumab Start Date: 08/05/2024 I have reviewed his past medical history/past surgical history/allergies/medications and updated asnecessary in the chart. OBJECTIVE Temperature: [36.3 ??C-36.7 ??C] 36.4 ??C Heart Rate: [39-86] 58 Resp Rate: [11-30] 19 Blood Pressure: (143-186)/(52-76) 155/60 SpO2: [93 %-97 %] 97 % Pulse Rate: [49-61] 58 Constitutional General: He is not in acute distress. Appearance: He is not ill-appearing. HENT Mouth/Throat: Mouth: Mucous membranes are moist. Eyes Pupils: Pupils are equal, round, and reactive to light. Comments: Proptosis of right eye, Ptosis of left eye Cardiovascular Rate and Rhythm: Regular rhythm. Bradycardia present. Pulses: Normal pulses. Heart sounds: Normal heart sounds. Pulmonary Effort: Pulmonary effort is normal. Breath sounds: Normal breath sounds. Abdominal Palpations: Abdomen is soft. Tenderness: There is no abdominal tenderness. Neurological Mental Status: He is alert and oriented to person, place, and time. Comments: Weakness in neck flexion and extension. DIAGNOSTICS: I have personally reviewed diagnostic evaluations (labs, pathology, radiology) from this hospitalization. ASSESSMENT / PLAN Mr. Michael Dwyer is a 83 y.o. 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 He reports significant improvement in overall weakness since initiation of steroids. Tolerating steroid therapy well so far. No ectopy on telemetry aside from bradycardia which patient states is his baseline. LAB WORK: Troponin T trend: 543->548->496->517->528->639 today Troponin I trend: 116->in process CK trend: 1259->587->250->149 today LFTs trending down IMAGING: Cardiac MRI: Late gadolinium enhancement in the basal to mid inferior and inferoseptal segments; subendocardial distribution with associated regional hypokinesis but no T2 signal abnormality most consistent with chronic infarction. Corticosteroid hx: 09/07 - present: Methylprednisolone 1 g daily (plan for 5 day course) IVIG hx: 09/08: Initiated IVIG load x 5 days Biologics hx: none ONCOLOGY RECOMMENDATIONS: Continue cardiac telemetry Cardiac MRI without clear evidence of myocarditis. Continue to treat for presumed ICI myocarditis given high trop I ICI team to discuss with cardio-oncology Continue daily IV methylprednisolone 1gm daily for 5 days (today is day 4/5) Titration at the discretion of the ICI team, assessed on a daily basis. Initiate PJP prophylaxis with Bactrim and GI prophylaxis with pantoprazole Trend CK and Troponin T daily. Rising troponin T trend noted, we note cardiology plans to continue monitoring given he is clinically doing well Obtain Troponin I on Thursday, Thursday, and Thursday Neurology following for management of myositis Neurology has ruled out MG EMG and clinical exam consistent with ICI myositis Continue IVIG 0.4g/kg x 5 days Q8hr respiratory mechanics: NIF PMR, PT/OT, CERTIFIED FORKLIFT OPERATOR consults for aggressive rehab F/U pending myasthenia gravis panel, necrotizing myopathy panel, MyoMarker 3 panel Oncology plan for following: Oncology Consults will continue to see this patient daily. Communication: Treatment plan reviewed with Mr. Dwyer and his family. They expressed understanding. All questions answered to their satisfaction. Staffing: This case was staffed with Dr. Frank and ICI team who are in agreement with this plan. Paging: Please page Oncology Consults Oncall with any questions at [phone] (service pager). Slim 7A-7P, [facility] Student Nurse on Consult service Yogi Olivera M.D. * Anna Mauricio, R.R.T., L.R.T. - 09/09/2024 10:22 PM CDT Patient is a 83 y.o. male Admitted on 09/07/2024 Principal Problem: Myositis Plan of Care: Patients own PAP was visually inspected and set up. Patient is capable of properly applying their own interface mask, capable of powering up the PAP, and capable of removing the interface in the morning. Contact RT with any question or concerns. Non-Invasive Support: BPAP/CPAP Interface: Full face mask Patient's Own Equipment: (P) Mask, Tubing, BPAP, Patient able to manage equipment on own, Equipmentinspected (per site policy) BPAP/CPAP Mode: (P) Other (Comment) (ASV) NPPV EPAP (CPAP) Setting: (P) 11 cm H2O Electronically signed by: Anna Mauricio R.R.T., L.R.T. 09/09/24 10:22 PM CDT * Cezar Zimmer M.D., Ph.D. - 09/09/2024 7:46 PM CDT Neurology Consult Follow-Up Note SUBJECTIVE Mr. Michael Dwyer is an 83-year-old male with recurrent metastatic urothelial carcinoma on Pembrolizumab and Enfortumab presented with fatigue, shortness of breath, muscle weakness, double vision, and left eyelid droop and was hospitalized with concerns for ICI myositis. INTERVAL EVENTS: - Improving in strength subjectively - Eating well - No SOB or orthopnea OBJECTIVE Mental status: Alert and oriented to time, place and person Gait: Appropriate heel strike, stride length, arm swing, and posture. Turns quickly. Getting up from seated position without pushing on chair: unable Posture: camptocormia Coordination: Finger to nose and heel to medley are normal bilaterally. Tremor: none Speech: normal. Tone: normal Cranial nerves R Muscle strength L R L Frontalis Visual acuity 0 Orbicularis oculi 0 Pupils 0 Lower facial muscles 0 0 Light reflex 0 0 Temporal-Masseter 0 0 Ptosis 0 0 Palate-Pharynx 0 0 Extraocular muscles 0 0 Sternocleidomastoid 0 0 Trapezius 0 0 Hearing 0 0 Genioglossus 0 Muscle atrophy/ enlargement: no Fasciculations: no R Muscle, strength L R Muscle, strength L Neck Trunk -1 Neck flexors -1 Abdominal muscles -2 Neck extensors -2 Paraspinals Upper Limbs Lower Limbs Supraspinatus (Suprascap/C5/U) -2.5 Iliopsoas (Femoral/L2-3) -2.5 Infraspinatus (Suprascap/C5/U) -1 Adductors, thigh (Obt/L2-4) -1 -1 Pectoralis (Lat pec/med pec, C4-6/C6-8) -1 Gluteus medius (SupGlu/L4-S1) -2 Deltoid (Axil/C5-6/U/P) -2 Gluteus max (InfGlu/L5-S2) -1 Biceps brachii (Musc/C5-6/U/L) -1 -1 Quadriceps (Femoral/L2-4) -1 Brachioradialis (Rad/C6/U/P) -1 Hamstrings (Sciatic/L5-S1) -1 Supinator/pronator (Rad/C6/U+M/P) 0 Tibialis anterior (DeepPer/L4-5) 0 -1 Triceps (Rad/C6-8/All/P) -1 0 Peronei (SupPer/L5-S1) 0 0 Wrist extensor (Rad/C6-7/U+M/P) 0 0 EHL (DeepPer/L5-S1) 0 0 Wrist flexors (Med/C6-7/U+M/L) 0 0 Toe extensors (Peroneal/L5-D1) 0 0 Digit extensors (Rad/C7-8/M+L/P) 0 Tibialis post. (Tibial/L5-S1) 0 Digit flexors (Med/C7-8/M+L/M+L) 0 Toe flexors (Tibial/S1-S2) 0 Thenar (Med/C8-T1/L/M) 0 0 Calf muscles (Peroneal/L4-5) 0 0 Hypothenar (Uln/C8-T1/L/M) 0 0 Interossei (Uln/C8-T1/L/M) 0 Muscle atrophy / enlargement: no Fasciculations: no Clinical myotonia: no Rippling: no R Reflexes L 0 Biceps brachii (C5-6) 0 0 Brachioradialis (C5-6) 0 0 Triceps (C6-7) 0 no [place] no 0 Quadriceps (L2-4) 0 0 Gastroc-soleus (S1) 0 no Clonus (ankle) no flexion Plantar response (L5-S1) flexion High arched palate: Absent. Elongated face: Absent. Scapular winging: Absent. Hammertoes: Absent. Joint hypermobility: Absent. Sensation Face: normal. Pinprick: Thumb (C7): intact 5th Finger (C8): intact Great Toe (L5): intact 5th Toe (S1): intact Upper Vibration: intact Upper Proprioception: intact Lower Vibration: moderately diminished bilaterally Lower Proprioception: absent at great toe, intact at ankle Assessment Mr. Michael Dwyer is an 83-year-old male with recurrent metastatic urothelial carcinoma on Pembrolizumab and Enfortumab presented with fatigue, shortness of breath, muscle weakness, double vision, and left eyelid droop and was hospitalized with concerns for ICI myositis. He has been initiated on IV methylprednisolone as well as IVIG. His strength is improving in the last 24 hours, though neck extensors, deltoids, and hip flexors remained significantly weak. We would recommend completing course of IV methylprednisolone and subsequently initiating 80 mg daily prednisone, completing five day course of IVIG, cardiac workup including cardiac MRI per primary team, continuing to trend creatinine kinase and troponins, and aggressive rehab with PMR, PT, OT, and CERTIFIED FORKLIFT OPERATOR as able. 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 at 09/10/2024 7:57 AM CDT * Miko Douglas M.D. - 09/09/2024 2:22 PM CDT SUBJECTIVE Inpatient Cardiology 5 Service, Heart Failure Service progress note. HISTORY OF PRESENT ILLNESS The patient is an 83-year-old man admitted yesterday to the Cardiology device Service under the care of Dr. Gardner. I evaluated the patient today in his room [id number] accompanied by Marga Hernandez PA-C, MS, on the Cardiology 5 Service. I met, interviewed, and examined the patient. I concur with the content in the progress note from today per Ms. Hernandez, including physical diagnosis, diagnostic impression, and plan. He appears quite well. He has no symptom complaints other than a stiff neck. He feels that his strength is improving rapidly since the immune checkpoint inhibitor was discontinued and he has been treated with steroids. We will continue to observe the patient in hospital as per protocol. ASSESSMENT / PLAN I concur with the content of the progress note per Ms. Hernandez from today, including physical diagnosis, diagnostic impression, and plan. MARGIN CODE: SH2. Total time 25 minutes. Miko Douglas M.D. CT CT Job ID: [id number] * Carina Vasquez - 09/09/2024 8:37 AM CDT NEUROLOGY CONSULT PROGRESS NOTE SUBJECTIVE Reason for consult: Immune checkpoint inhibitor-associated myositis and likely myocarditis. Primary Team: RST CARD 5 Interval History: No acute events occurred tonight. He states he slept well and had no shortness of breath. He feels slightly better compared to yesterday, but still has weakness, especially on neck extension and hip flexion-extension. He understands the reason for his admission and the ongoing management process. I have reviewed the current medication list. OBJECTIVE Temperature: [35.9 ??C-36.7 ??C] 36.5 ??C Heart Rate: [36-98] 60 Resp Rate: [10-31] 13 Blood Pressure: (135-201)/(53-120) 148/80 SpO2: [93 %-99 %] 93 % Pulse Rate: [46-68] 63 Physical Examination Constitutional: Well-nourished, in no acute distress, stating he is doing better compared to his initial presentation but similar to yesterday. Lungs: On room air, does not define any shortness of breath. Neurological Exam: His facial muscle, hip flexors and extensors, and neck extensor weakness is continuing. Rest of the strength exam is showing mild improvements compared to yesterday. No new symptoms or signs as of this morning. Mental status: Alert and oriented to time, place, person, and situation. Speech is clear without evidence of aphasia or dysarthria. Comprehension was intact. Normal thought content. Cranial nerves: PERRL, EOMI with a left-sided ptosis and right-sided proptosis, facial movements full and symmetric, hearing intact to voice, equal elevation of the soft palate, shoulder shrug is appropriate in strength, tongue protrudes to midline. Motor: No abnormal movements appreciated. Tone is normal in bilateral upper and lower extremities. No muscle atrophy or fasciculations. Strength* (R,L): neck flexion (-1), neck extension (-2), deltoids (-2.5,-2.5), biceps (-1,-1), triceps (-1,-1), wrist extensors (0,0), finger extensors (0,0), iliopsoas (-2,-2.5), knee flexors (0,trace weakness), knee extensors (0,trace), ankle dorsiflexors (0,0), ankle plantarflexors (0,0). Sensory: Decreased proprioception in bilateral lower extremities. Reflexes (R,L)^: biceps (0,0), triceps (0,0), brachioradialis (0,0), patellar (0,0), Achilles (0,0). Plantar responses are flexor bilaterally. *Gradin = normal, -1 = 25% reduced, -2 = 50% reduced, -3 = 75% reduced, - 3.25 = movement against gravity, -3.5 movement but not antigravity, -3.75 = flicker of movement, -4 = complete paralysis ^Grading: -4 = absent, -3 = 75% reduced, -2 = 50% reduced, -1 = 25% reduced, 0 = normal, +1 = 25% increased, +2 = 50% increased, +3 = 75% increased with unsustained clonus, +4 = markedly increased with sustained clonus. Diagnostics: I have reviewed the labs and diagnostics from admission. Labs (09/08/24, 12.12 CDT): Troponin I: 116 ng/L Troponin T: 517 ng/L CK: 587 U/L Aldolase: 31.4 U/L TSH: 1.5 mIU/L (1 month ago: 7.6) Leukocytes: 20.1 x 10(9)/L (previous: 15.5) MR Cardiac with and without IV contrast (09/08/24): Normal size left ventricle. Late gadolinium enhancement in the basal to mid inferior and inferoseptal segments; subendocardial distribution with associated regional hypokinesis but no T2 signal abnormality most consistent with chronic infarction. Preserved global systolic function. LVEF 57%. Normal size and global systolic function of the right ventricle. RVEF 63%. EMG 09/07/28: Abnormal study. 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 There is no current convincing evidence of a disorder of neuromuscular transmission. 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 ASSESSMENT / PLAN Mr. 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 We have been consulted for possible myasthenia gravis diagnosis and the management of myositis. Given his myositis without muscle fatigability on the neurological exam, as well as EMG results that are not consistent with a neuromuscular disorder, his current presentation is most likely compatible with immune checkpoint inhibitor- associated myositis rather than myasthenia gravis. Yesterday, hestarted the IVIG treatment (0.4 g/kg daily) with a 5-day course. He is continuing his daily IV methylprednisolone 1 g (4th dose today, 09/09/24). His neck extension strength did not show any notable improvement compared to yesterday. He has facial muscle weakness, and his hip flexion and extension weakness is continuing. Apart from these findings, his strength, including the deltoids, showed a mild improvement. We will continue to follow hisprogression along with you. 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 Issac Craven. We appreciate the consult. Pleasepage [phone] with any questions regarding our recommendationsLiliana Vasquez Medical Student 09/09/2024 Cosigned by Issac Craven M.D. at 09/09/2024 1:59 PM CDT Associated attestation - Issac Craven M.D. - 09/09/2024 1:59 PM CDT I saw the patient with the medical student. I was present for or re-performed the History of Present Illness. I saw and evaluated the patient, participating in the [place] portions of the service and didmedical decision making. I have reviewed the above documentation and agree or amended. 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 Creatine kinase continues to downtrend (now to 50). He still has troponinemia. For now, would recommend continuing with the current plan as follows: 1. Continuation of IV methylprednisolone 1 g daily x5 days total. He will likely benefit from a short course of oral prednisone with taper thereafter. We would recommend initiating prednisone 80 mg daily once IV methylprednisolone is completed. 2. Continuation of IVIG 0.4 g/kg daily x5 days (for a total dose of 2 g/kg over that time course) 3. Agree with cardiac MRI 4. Continue trending creatine kinase and troponins. 5. Appreciate the multidisciplinary involvement of our colleagues in Cardiology and Oncology. 6. Ongoing close clinical observation 7. Aggressive rehabilitation and involvement of our colleagues in PM&R, PT, OT, and speech and language pathology. We will continue to follow along with you. * Shanita Velarde, JALEESA, C.N.P., M.S.N. - 09/09/2024 8:00 AM CDT MEDICAL ONCOLOGY CONSULT SERVICE: CONSULT NOTE Primary Service: RST CARD 5 Local Oncologist: No care executive team leader to display [facility] Oncologist(s): Casimiro Chavez M.D., Ph.D. Reason(s) for consult: Known cancer diagnosis Suspected Immune Checkpoint Inhibitor (ICI) toxicity Managing medications for ICI toxicity SUBJECTIVE HISTORY OF PRESENT ILLNESS Mr. Michael Dwyer is a 83 y.o. male with metastatic urothelial cancer who recently initiated treatment with enfortumab vedotin and pembrolizumab (received his first treatment on 08/05/2024). Patient presented to his local infusion center at [facility] on 09/06/2024 with plans to receive cycle 2 of therapy but was found to have profound muscle weakness with inability to stand without assistance and weak neck extensor muscles, ptosis, and shortness of breath. He was sent to the local emergency department for further evaluation. Lab work significant for elevated CK of 3687, troponin I of0.24 (ref range 0.01-0.04). 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 Oncology service was consulted following admission for ongoing recs for work-up and management. His oncology history is noted below. Oncology History Overview Note May 29, 2011 [...] Enfortumab vedotin-ejfv / Pembrolizumab Start Date: 08/05/2024 I have reviewed his past medical history/past surgical history/allergies/medications and updated asnecessary in the chart. OBJECTIVE Temperature: [35.9 ??C-36.7 ??C] 36.5 ??C Heart Rate: [36-81] 65 Resp Rate: [9-31] 17 Blood Pressure: (148-178)/(55-99) 148/67 SpO2: [93 %-97 %] 96 % Pulse Rate: [46-63] 60 Constitutional General: He is not in acute distress. Appearance: He is not ill-appearing. HENT Mouth/Throat: Mouth: Mucous membranes are moist. Eyes Pupils: Pupils are equal, round, and reactive to light. Comments: Proptosis of right eye, Ptosis of left eye Cardiovascular Rate and Rhythm: Regular rhythm. Bradycardia present. Pulses: Normal pulses. Heart sounds: Normal heart sounds. Pulmonary Effort: Pulmonary effort is normal. Breath sounds: Normal breath sounds. Abdominal Palpations: Abdomen is soft. Tenderness: There is no abdominal tenderness. Neurological Mental Status: He is alert and oriented to person, place, and time. Comments: Weakness in neck flexion and extension. DIAGNOSTICS: I have personally reviewed diagnostic evaluations (labs, pathology, radiology) from this hospitalization. ASSESSMENT / PLAN Mr. Michael Dwyer is a 83 y.o. 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 He reports significant improvement in overall weakness since initiation of steroids. Tolerating steroid therapy well so far. No ectopy on telemetry aside from bradycardia which patient states is his baseline. LAB WORK: Troponin T trend: 543->548->496->517->528 today Troponin I trend: 116->in process CK trend: 1259->587->250 LFTs trending down IMAGING: Cardiac MRI: Late gadolinium enhancement in the basal to mid inferior and inferoseptal segments; subendocardial distribution with associated regional hypokinesis but no T2 signal abnormality most consistent with chronic infarction. Corticosteroid hx: 09/07 - present: Methylprednisolone 1 g daily (plan for 5 day course) IVIG hx: 09/08: Initiated IVIG load x 5 days Biologics hx: none ONCOLOGY RECOMMENDATIONS: Continue cardiac telemetry Cardiac MRI without clear evidence of myocarditis. 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 Initiate PJP prophylaxis with Bactrim and GI prophylaxis with pantoprazole Trend CK and Troponin T daily. Obtain Troponin I on Thursday, Thursday, and Thursday Neurology following for management of myositis Neurology has ruled out MG EMG and clinical exam consistent with ICI myositis Continue IVIG 0.4g/kg x 5 days Q8hr respiratory mechanics: NIF PMR, PT/OT, CERTIFIED FORKLIFT OPERATOR consults for aggressive rehab F/U pending myasthenia gravis panel, necrotizing myopathy panel, MyoMarker 3 panel Oncology plan for following: Oncology Consults will continue to see this patient daily. Communication: Treatment plan reviewed with Mr. Dwyer and his family. They expressed understanding. All questions answered to their satisfaction. Staffing: This case was staffed with Dr. Chavez and ICI team who are in agreement with this plan. Paging: Please page Oncology Consults Oncall with any questions at [phone] (service pager). Slim 7A-7P, Raheem Caryl Student Nurse on Consult service Shanita Velarde APRN, C.N.Jeramy, M.S.N. * Marga Hernandez P.A.-C., M.S. - 09/09/2024 7:08 AM CDT RST CARD 5 CARDIOLOGY INPATIENT PROGRESS NOTE SUBJECTIVE Mr. Dwyer was seen and examined on morning rounds. He is very pleased with how well he is feeling after initiation of treatment. He has no dyspnea or pain. OBJECTIVE TELEMETRY Sinus rhythm, rare PACs INTAKE/OUTPUT Past 24 hours: Intake/Output Summary (Last 24 hours) at 09/09/2024 1208 Last data filed at 09/09/2024 0941 Gross per 24 hour Intake 1038 ml Output 2050 ml Net -1012 ml Admission Weight: 129 kg Today's weight: 128 kg Weight change since admit: -1kg Body mass index is 36.23 kg/m??. VITAL SIGNS Temperature: [35.9 ??C-36.7 ??C] 36 ??C Heart Rate: [36-98] 60 Resp Rate: [9-31] 11 Blood Pressure: (148-201)/(55-120) 178/63 SpO2: [93 %-99 %] 96 % Weight: [128 kg] 128 kg BMI (Calculated): [36.2 kg/m??] 36.2 kg/m?? Pulse Rate: [46-68] 63 PHYSICAL EXAMINATION Constitutional: Appearance: Healthy appearance. Not in distress. Chronically ill-appearing. Neck: Vascular: JVD normal. Pulmonary: Effort: Pulmonary effort is normal. Breath sounds: Normal breath sounds. No wheezing. No rhonchi. No rales. Cardiovascular: Normal rate. Regular rhythm. Murmurs: There is no murmur. No gallop. No rub. Edema: Comments: 2+ pitting edema to the knees Abdominal: General: Bowel sounds are normal. There is distension. Palpations: Abdomen is soft. Hernia: A hernia is present. Comments: Urostomy present Skin: General: Skin is warm and dry. Neurological: General: No focal deficit present. Mental Status: Alert and oriented to person, place and time. DIAGNOSTICS I personally reviewed all radiology and labs from the past 24 hrs. 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 #2 Recurrent metastatic urothelial carcinoma with recent initiation of pembrolizumab/Enfortumab (cycle 1 - 08/05/24, cycle 2 - started 08/29/24) s/p (radical cystoprostatectomy with ileal conduit urinary diversion-2011) and adjuvant cisplatin and gemcitabine #3 Post-operative DVT and PE s/p IVC filter placement/removal (2011) #4 Coronary artery disease s/p PCI-RCA x 2 (2005) #5 RUTHY on ASV #6 Hypertension #7 Hyperlipidemia #8 Obesity, BMI 36 #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 Dwyer is a 83 y.o. male with recurrent metastatic urothelial carcinoma who recently started treatment with pembrolizumab/Enfortumab on 08/05/24. He started cycle 2 on 08/29/24. He presented to the local infusion center today and was found to have severe weakness, dyspnea, and ptosis. He was admitted locally and found to have elevated CK (3687), troponin I 0.24 (ref range 0.01-0.04), and mildly elevated BNP 921. 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 He was initiated on high-dose steroids with methylprednisolone and further workup recommended including cardiac MRI, EMG, necrotizing myopathy panel, myasthenia gravis panel. No cardiac MRI was available locally, so he was transferred to [facility] for furthermanagement. He has been hemodynamically stable since arrival. He reports feeling much improved since his initial presentation but still has persistent weakness, especially in his neck. From a cardiac perspective, he is euvolemic with no concerning symptoms or exam findings. He has been intermittently hypertensive. His home atenolol has been held due to worsened renal function, but would prefer to avoid introducing another beta alex as heart rates are running quite low. Will continue home losartan 100mg for now with close monitoring of renal function. Will add low dose amlodipine and monitor for any side effects. ICI toxicity workup has been initiated. Cardiac MRI did not show any evidence of myocardial inflammation. Interestingly, his troponin I is significantly elevated. EMG was without evidence of neuromuscular disorder. Necrotizing myopathy and myasthenia gravis panels are pending. Will continue trend troponins (still in the 500s) and CK (normalized today). Oncology continues to follow. We will continue IV methylprednisolone 1g daily. Neurology is following as well and we have initiated IVIG. Plan for a 5 day course of IVIG and IV steroids. He reported abnormal appearance of the urine in his urostomy bag this week. UA is abnormal (WBCs, RBCs, bacteria) but this is chronically the case. He has been afebrile, no flank pain. He has a leukocytosis but this is in the setting of very high steroid dosing. Urine culture is in process. PLAN: -- Add amlodipine 5mg daily for elevated BP -- Trend CK and troponins -- CK trend: 3687->1259->824->587->250 (WNL) -- Troponin trend: 543->548->496->517->520 -- Troponin I: 116 (continue to trend - lab is only run on //) -- Follow urine culture. No antibiotics for now. -- Continuous telemetry while evaluating for myocardial involvement given high risk for ventriculararrhythmias if present -- Oncology consulted -- Continue IV methylprednisolone 1g daily. PPI and Bactrim while in high dose steroids. -- Necrotizing myopathy and myasthenia gravis panels pending -- Negative inspiratory force daily by RT. -- Neurology consulted for myositis and myasthenia gravis management recommendations -- Initiate IVIG 0.4g/kg x 5 days (based on ideal body weight - 82.2kg) -- PMR, PT/OT, CERTIFIED FORKLIFT OPERATOR consults for aggressive rehab -- Continue home medications including allopurinol 300 mg daily, ferrous sulfate 65 mg 3 times weekly, losartan 100 mg daily, and Senokot 2 tablets BID. -- Atenolol 25 mg daily held due to impaired renal clearance. No alternate beta blockade at this time as he is quite bradycardic. VTE: Heparin SQ 5,000 units TID Gi: not indicated Code Status: Full Code Disposition: Uncertain ADDENDUM: Patient seen again in the afternoon. He does have some bilateral pitting edema in the lower extremities. Will give 40mg IV furosemide now and reassess volume status in the morning. Marga Hernandez P.A.-C., M.S. 09/09/24 RST CARD 5 I personally spent a total 50 minutes providing and coordinating care today. * Ruby Auguste R.R.T., L.R.T. - 09/09/2024 6:33 AM CDT 09/09/24 0600 Respiratory Mechanics (Volumes/Pressures) Max Expiratory Pressure 60 cm H2O Max Inspiratory Pressure -60 cm H2O Vital Capacity 2.91 Liters Predicted Vital Capacity 4.17 Liters Patient Position Sitting Patient Effort Good $Respiratory Mechanics Yes Respiratory mechanics completed with no issues. Pt had good strong effort. Electronically signed by: Ruby Auguste R.R.T., L.RLilianaTLiliana 09/09/24 6:37 AM CDT * Michael Truong R.R.T., Humberto.RLilianaT. - 09/08/2024 10:43 PM CDT 09/08/24 2200 BPAP/CPAP Therapy Patient's Own Equipment Mask;Tubing;BPAP;Equipment inspected (per site policy) Ventilator Parameters BPAP/CPAP Mode Bilevel;Per Home Settings;Other (Comment) (ASV) NPPV EPAP (CPAP) Setting 11 cm H2O Pressure Support (Min) 4 cm H2O Pressure Support (Max) 11 cm H2O Humidification Heated humidifier 2199: Home device applied for rest, ASV EPAP 11 PS min 4 max 11. Electronically signed by: Michael Truong R.R.T., StarrRLilianaT. 09/08/24 10:44 PM CDT * Michael Truong R.R.T., Humberto.R.Joey. - 09/08/2024 10:40 PM CDT 09/08/242199 Respiratory Mechanics (Volumes/Pressures) Max Expiratory Pressure 60 cm H2O Max Inspiratory Pressure -60 cm H2O Vital Capacity 2.61 Liters Predicted Vital Capacity 4.17 Liters Patient Position Semi-recumbent Patient Effort Good $Respiratory Mechanics Yes 2200: Patient seen, on room air, for respiratory mechanics. Electronically signed by: Michael Truong R.R.T., Humberto.R.T. 09/08/24 10:40 PM CDT * Yenni Alvarado M.A., [facility]-CERTIFIED FORKLIFT OPERATOR - 09/08/2024 4:00 PM CDT 09/08/24 1600 Reason Therapy Missed Reason Therapy Missed Receiving other care Speech Pathology evaluation received to assess cognitive/communication and dysphagia. Patient away at MRI this afternoon and then working with PT once he returned. CERTIFIED FORKLIFT OPERATOR will plan to initiate evaluations tomorrow morning. Yenni Alvarado M.A., [facility]-CERTIFIED FORKLIFT OPERATOR [phone] * Sydnie Corley Pharm.D., R.Ph. - 09/08/2024 10:16 AM CDT Pharmacist Progress Note Reason for admission: severe weakness PMH: recurrent metastatic urothelial carcinoma, CKD4, HTN, sleep apnea, thyroid carcinoma, CAD s/p RHONDA 2006, HLD, gout. Medical History[1] OBJECTIVE CV: HTN-losartan 100 mg Neph: Estimated Creatinine Clearance: 46.5 mL/min (A) (by C-G formula based on SCr of 1.75 mg/dL (H)). allopurinol Heme: methylprednisolone 1 gram q24 hours PPX: SQH Medication Reconciliation: Held: atenolol, HCTZ, simvastatin Changed: TBD New: TBD ASSESSMENT / PLAN Severe weakness in the setting of recurrent metastatic urothelial carcinoma w/ concern for ICI toxicity and IC induced myasthenia gravis. Oncology consulted. ICI toxicity workup pending MRI, EMG, necrotizing myopathy panel and myasthenia gravis panel. Gammagard 0.4 g/kg for 5 doses for concern of myasthenia gravis. Dose is calculated based on IBW of82 kg. Premedication with acetaminophen and diphenhydramine ordered. Continues methylprednisolone 1 mg q24h. Holding simvastatin in setting of elevated CK. Holding atenolol since it is renally eliminated and likely contributing to bradycardia. If appropriate consider a non-renally eliminated beta alex in its place. Hematuria, UA pending. Sydnie Corley, PharmJasmine., R.Ph. [1] Past Medical History: Diagnosis Date Apnea Sleep Obstructive Uses CPAP Benign Prostatic Hyperplasia With Lower Urinary Tract Symptom 07/25/2009 LW Modifier: s/p TURP ; BPH Age Related Prostate Ca Risk w Obst BenignProstatic Hyperplasia Localized 2011 Blood Transfusion No Diagnosis 2011 2-3 units Cataract 2015 Chronic Kidney Disease NOS Stage 4 Coronary Artery Disease NOS 2006 2 stents placed Defect Coagulation (HCC) 2012 Hernia Hyperlipidemia 2003 Hypertension NOS 2003 Malignant Neoplasm Of Bladder (HCC) 2008 Malignant Neoplasm Of Thyroid Papillary (HCC) 09/12/2022 Nodule Thyroid 2016 Other Injury Of Unspecified Body Region 1958 foot Other Pulmonary Embolism Without Acute Cor Pulmonale (HCC) 07/14/2011 Peripheral Vascular Disease Lower extremities Polyp Colon 2012 Thromboembolism NOS 2012 left leg Urostomy Status Post (HCC) * Marga Hernandez P.A.-C., M.S. - 09/08/2024 8:37 AM CDT RST CARD 5 CARDIOLOGY INPATIENT PROGRESS NOTE SUBJECTIVE Mr. Dwyer was seen and examined on morning rounds. He reports significant improvement in his symptoms since initiation of steroids at the outside hospital. He has no dyspnea or chest discomfort. OBJECTIVE TELEMETRY Sinus rhythm/sinus bradycardia, isolated PVCs INTAKE/OUTPUT Past 24 hours: Intake/Output Summary (Last 24 hours) at 09/08/2024 0837 Last data filed at 09/08/2024 0403 Gross per 24 hour Intake 300 ml Output 800 ml Net -500 ml Admission Weight: 129 kg Today's weight: 129 kg Weight change since admit: n/a Body mass index is 36.43 kg/m??. VITAL SIGNS Temperature: [36.4 ??C-36.8 ??C] 36.4 ??C Heart Rate: [34-72] 42 Resp Rate: [11-29] 16 Blood Pressure: (136-186)/(64-78) 136/78 SpO2: [89 %-100 %] 94 % Height: [188 cm] 188 cm Weight: [129 kg] 129 kg BSA (Calculated - sq m): [2.59 sq meters] 2.59 sq meters BMI (Calculated): [36.4 kg/m??] 36.4 kg/m?? Pulse Rate: [28-63] 39 PHYSICAL EXAMINATION Constitutional: Appearance: Healthy appearance. Not in distress. Neck: Vascular: JVD normal. Pulmonary: Effort: Pulmonary effort is normal. Breath sounds: Normal breath sounds. No wheezing. No rhonchi. No rales. Cardiovascular: Normal rate. Regular rhythm. Murmurs: There is no murmur. No gallop. No rub. Edema: Comments: Trace peripheral edema Abdominal: General: Bowel sounds are normal. There is distension. Palpations: Abdomen is soft. Hernia: A hernia is present. Comments: Urostomy present Skin: General: Skin is warm and dry. Neurological: General: No focal deficit present. Mental Status: Alert and oriented to person, place and time. DIAGNOSTICS I personally reviewed all radiology and labs from the past 24 hrs. 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 #2 Recurrent metastatic urothelial carcinoma with recent initiation of pembrolizumab/Enfortumab (cycle 1 - 08/05/24, cycle 2 - started 08/29/24) s/p (radical cystoprostatectomy with ileal conduit urinary diversion-2011) and adjuvant cisplatin and gemcitabine #3 Post-operative DVT and PE s/p IVC filter placement/removal (2011) #4 Coronary artery disease s/p PCI-RCA x 2 (2005) #5 RUTHY on ASV #6 Hypertension #7 Hyperlipidemia #8 Obesity, BMI 36 #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 Dwyer is a 83 y.o. male with recurrent metastatic urothelial carcinoma who recently started treatment with pembrolizumab/Enfortumab on 08/05/24. He started cycle 2 on 08/29/24. He presented to the local infusion center today and was found to have severe weakness, dyspnea, and ptosis. He was admitted locally and found to have elevated CK (3687), troponin I 0.24 (ref range 0.01-0.04), and mildly elevated BNP 921. 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 He was initiated on high-dose steroids with methylprednisolone and further workup recommended including cardiac MRI, EMG, necrotizing myopathy panel, myasthenia gravis panel. No cardiac MRI was available locally, so he was transferred to [facility] for furthermanagement. On arrival to [facility], he is hemodynamically stable and reports feeling much improved today compared tohis initial presentation. From a cardiac perspective, he is euvolemic with no concerning symptoms or exam findings. He has been intermittently hypertensive but pressures are 130s systolic this morning. Will continue home losartan 100mg for now with close monitoring of renal function. ICI toxicity workup is underway. Cardiac MRI and EMG are scheduled for today. Necrotizing myopathy and myasthenia gravis panels are pending. Will trend troponins and CK. Oncology has been consulted. We will continue IV methylprednisolone 1g daily. Neurology has been consulted as well for management of myositis and evaluation of possible myasthenia gravis. He reported abnormal appearance of the urine in his urostomy bag this week. UA is abnormal (WBCs, RBCs, bacteria) but this is chronically the case. He has been afebrile, no flank pain. He has a leukocytosis but this is in the setting of very high steroid dosing. Will send a urine culture and treat for UTI if abnormal. PLAN: -- Trend CK and troponins, obtain troponin I with afternoon labs -- Follow urine culture. No antibiotics for now. -- Continuous telemetry while evaluating for myocardial involvement given high risk for ventriculararrhythmias if present -- Oncology consulted -- Continue IV methylprednisolone 1g daily. Add daily PPI while in high dose steroids. -- Cardiac MRI and EMG today -- Necrotizing myopathy and myasthenia gravis panels pending -- Negative inspiratory force Q8H by RT. Transition to QD tomorrow if stable. -- Neurology consulted for myositis and myasthenia gravis management recommendations -- Initiate IVIG 0.4g/kg x 5 days (based on ideal body weight - 82.2kg) -- PMR, PT/OT, CERTIFIED FORKLIFT OPERATOR consults for aggressive rehab -- Obtain urine culture given abnormal UA (appears similar to historical urine studies) -- Continue home medications including allopurinol 300 mg daily, ferrous sulfate 65 mg 3 times weekly, losartan 100 mg daily, and Senokot 2 tablets BID. -- Atenolol 25 mg daily held due to impaired renal clearance. No alternate beta blockade at this time as he is quite bradycardic. VTE: Heparin SQ 5,000 units TID Gi: not indicated Code Status: Full Code Disposition: Mary Marga Hernandez P.A.-C., M.S. 09/08/24 RST CARD 5 I personally spent a total 50 minutes providing and coordinating care today. * Lala Garay R.RLilianaTLiliana, L.R.T. - 09/07/2024 9:16 PM CDT 09/07/242111 Respiratory Mechanics (Volumes/Pressures) Max Expiratory Pressure 60 cm H2O Max Inspiratory Pressure -60 cm H2O Vital Capacity 2.8 Liters Predicted Vital Capacity 4.17 Liters Patient Position Semi-recumbent Patient Effort Good $Respiratory Mechanics Yes Q8 Respiratory Mechanics ordered, specifically NIF. Therapist will measure all three NIF, MEP and VC. Initial measurements above. At this time patient accomplished better than the 60/-60 that the devices can measure. Electronically signed by: Lala Garay R.R.T., L.R.T. 09/07/24 9:17 PM CDT documented in this encounter H&P Notes * Garrison Gardner M.D. - 09/08/2024 12:57 PM CDT HEART FAILURE SERVICE ADMISSION NOTE ([facility]) SUBJECTIVE HISTORY OF PRESENT ILLNESS This is a supervisory note for Griselda Medina PA-C and Marga Hernandez PA-C. I have reviewed their notes from yesterday and today and agree with the history, examination, and plan with the following additions. I have also independently interviewed and examined Mr. Dwyer. Mr. Dwyer he is a very pleasant 83-year-old man transferred from 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 He has urethral cancer receiving Keytruda. Approximately 5 days ago his noticed that his head was stooped over and he was unable to lift it up. He began experiencing difficulty getting out of a chair due to weakness in his legs. He then developed proptosis of the right eye and ptosis of the left. On presentation to [facility] his troponins were elevated. CK also markedly elevated. He was provided 1 g of Solu-Medrol. He was transferred to [place] due to complexity and as his oncologic care is coordinated here. OBJECTIVE Temperature: [36.4 ??C-36.8 ??C] 36.5 ??C Heart Rate: [34-72] 50 Resp Rate: [10-29] 15 Blood Pressure: (135-186)/(53-78) 135/53 SpO2: [89 %-100 %] 97 % Height: [188 cm] 188 cm Weight: [129 kg] 129 kg BSA (Calculated - sq m): [2.59 sq meters] 2.59 sq meters BMI (Calculated): [36.4 kg/m??] 36.4 kg/m?? Pulse Rate: [28-63] 46 PHYSICAL EXAMINATION General: Mr. Dwyer is lying flat in bed. No acute distress. Very pleasant. Very talkative. Heart: No significant jugular venous distention. Regular rate and rhythm. Vessels: Normal radial and pedal pulses bilaterally. Lungs: Clear anteriorly. Abdomen: Ileal conduit. Obese. Nontender. Nondistended. Extremities: Trace lower extremity edema. Neuro: Proptosis of the right eye and ptosis of the left. Otherwise, examination as outlined in the note of Griselda Medina PA-C and Marga Hernandez PA-C. from yesterday and today. 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 Currently Mr. Dwyer is hemodynamically stable. No significant arrhythmias on telemetry. Comfortable,lying flat with oxygen saturations greater than 90% on room air. Both troponin I (in [facility]) and troponin T (here) are markedly elevated. Cardiac MRI is pendingbut the current evidence strongly supports the presence of myocardial inflammation He started high-dose Solu-Medrol yesterday. We anticipate at least 5 days of high-dose steroids. Decision to wean steroids will be based on his hemodynamic status and a significant reduction in his troponin levels which would imply response to steroids. IVIG to start per recommendations from Neurology. Discussed with Dr. Malik. He is potential candidate for the [facility] (abatacept vs. placebo). Otherwise, plan as outlined in the note of Griselda Medina PA-C and Marga Hernandez PA-C. from yesterday and today. * Griselda Medina P.A.-C. - 09/07/2024 5:42 PM CDT Images from the original note were not included. CARDIOLOGY INPATIENT ADMISSION NOTE CHIEF COMPLAINT/REASON FOR VISIT Severe weakness Admitting service: [facility] Admit/Triage Hospital HISTORY OF PRESENT ILLNESS Mr. Dwyer is a 83 y.o. male with recurrent metastatic urothelial carcinoma on pembrolizumab and Enfortumab. Other medical comorbidities include previous bladder cancer s/p resection and urostomy and chemotherapy 2011, CKD 4, hypertension, severe complex sleep apnea on ASV, papillary thyroid carcinoma s/p left thyroid lobectomy and isthmusectomy 2022, CAD s/p RHONDA x 2 to the RCA 2005, obesity, hyperlipidemia, history of gout. Urothelial cancer was first diagnosed in 2011. He underwent radical cystoprostatectomy with ileal conduit formation followed by adjuvant chemotherapy with cisplatin and gemcitabine. This year, he wasfound to have disease recurrence. He underwent his first infusion of pembrolizumab and Enfortumab on 08/05/2024. He initially felt fatigued and noticed a rash on his arms but otherwise felt well. He started cycle 2 on Thursday, 08/29 with pembrolizumab infusion. Each day following his infusion he noted new side effects including fatigue, shortness of breath, bilateral shoulder pain and lower extremity weakness, to the point where he couldn't stand up. On Thursday, 09/03 he was also noted to have left eyelid droop with double vision, which he described as similar to dry eyes, and neck extensorweakness. Symptoms were managed conservatively with artificial tears and heat packs. Yesterday, he presented to his local infusion center for planned Enfortumab infusion and was found to be severely weak and short of breath. He was directed to the local emergency department for further evaluation. Labs were notable for elevated CK of 3687, troponin I of 0.24 (ref range 0.01-0.04), and mildly elevated BNP 921 (normal for age and renal function). TTE demonstrated grossly normal biventricular function and an enlarged IVC. 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 Recommend initiation of IV Solu-Medrol and additional workup including necrotizing myopathy panel, myasthenia gravis panel, cardiac MRI, and EMG. Local facility did not have capability for cardiac MRI. [facility] was contacted and he was accepted for transfer to [facility]. On arrival to the PCU, Mr. Dwyer reported feeling significantly better following IV steroids. He noted that he was able to walk 200 yards and climb 4 stairs with physical therapy this morning, which is remarkable considering he could not get himself out of the recliner a couple of days ago. Still only at 50% of his baseline functional capacity. He reports that he has not experienced any chest pain/pressure/tightness, palpitations, lightheadedness/dizziness, abdominal distention, changes in appetite, weight gain, or worsening lower extremity edema. Also denies difficulties with speech, swallowing. The following portions of the patient's history were reviewed and updated as appropriate: allergies, current medications, family history, medical history, social history, surgical history and problemlist. PAST MEDICAL HISTORY Medical History[1] Surgical History[2] REVIEW OF SYSTEMS A complete 10 point review of systems was completed and negative except for as mentioned in the HPI. ALLERGIES Allergies[3] HOME MEDICATIONS Current Outpatient Medications on File Prior to Encounter: allopurinol (ZYLOPRIM) 300 mg tablet, Take 300 mg by mouth every morning., 09/07/2024 atenoloL (TENORMIN) 25 mg tablet, Take 25 mg by mouth daily., 09/07/2024 cholecalciferol (VITAMIN D3) 2,000 Unit capsule, Take 2,000 Units by mouth every evening., 09/06/2024 diphenhydramine HCl (ALLERGY ORAL), Take 1 tablet by mouth 2 (two) times a day., 09/07/2024 ferrous sulfate 324 mg (65 mg iron) DR tablet, Take 65 mg of iron by mouth 3 (three) times a week.,09/07/2024 hydroCHLOROthiazide (HydroDiuril) 25 mg tablet, Take 25 mg by mouth daily., Past Week losartan (COZAAR) 100 mg tablet, Take 100 mg by mouth daily., 09/07/2024 simvastatin (ZOCOR) 40 mg tablet, Take 40 mg by mouth at bedtime., 09/06/2024 acetaminophen (TYLENOL) 500 mg tablet, Take 1,000 mg by mouth every 6 (six) hours as needed for pain., Unknown DME Bi-level PAP, DME Order DME Ostomy supplies, DME Order hydrOXYzine (Atarax) 25 mg tablet, Take 1 tablet (25 mg total) by mouth 3 (three) times a day as needed for itching. KRILL OIL ORAL, Take 1 capsule by mouth every evening. ondansetron (Zofran) 8 mg tablet, Take 1 tablet (8 mg total) by mouth every 8 (eight) hours as needed for nausea or vomiting (unrelieved by prochlorperazine). prochlorperazine (Compazine) 10 mg tablet, Take 1 tablet (10 mg total) by mouth every 6 (six) hoursas needed for nausea or vomiting. sennosides-docusate sodium (SENOKOT-S) 8.6-50 mg per tablet, Take 2 tablets by mouth 2 (two) times a day. triamcinolone (KENALOG) 0.1 % cream, Apply 1 Application topically as needed for irritation or rash. triamcinolone (Kenalog) 0.1 % lotion, Apply 1 Application topically 2 (two) times a day as needed (Rash, Itching). [DISCONTINUED] phentermine 15 mg capsule, Take 15 mg by mouth every morning. [DISCONTINUED] turmeric root extract 500 mg capsule, Take 500 mg by mouth daily. SOCIAL HISTORY Mr. Dwyer is a former cigarette smoker. He quit smoking approximately 35 years ago, but prior to this smoked 1 pack per day for 10-12 years. He denies other substance use including methamphetamine, cocaine, and marijuana. He reports current alcohol consumption as 2-3 glasses of beer or wine per week. He lives in [place], [place] with his of 60 years. FAMILY HISTORY Family History[4] OBJECTIVE VITAL SIGNS: Temperature: [36.7 ??C-36.8 ??C] 36.8 ??C Heart Rate: [53-72] 53 Resp Rate: [14-29] 29 Blood Pressure: (164-186)/(64-71) 164/64 SpO2: [94 %-96 %] 95 % Height: [188 cm] 188 cm Weight: [129 kg] 129 kg BSA (Calculated - sq m): [2.59 sq meters] 2.59 sq meters BMI (Calculated): [36.4 kg/m??] 36.4 kg/m?? Pulse Rate: [53-63] 53 Body mass index is 36.43 kg/m??. PHYSICAL EXAMINATION General: Pleasant, age appearing male resting comfortably in bed with and sons at bedside. Alert and oriented x3. Heart: Bradycardic, regular rhythm. No murmurs, rubs, or gallops. Neck veins flat. Lungs: Mildly dyspneic with conversation. On room air. Lungs are clear to auscultation bilaterally. Abdomen: Obese. Active bowel sounds throughout. Abdomen is soft, nondistended, nontender. Extremities: Bilateral lower extremities with venous stasis changes. Trace to 1+ pretibial pitting edema with 2+ pitting edema in ankles. Neuro: Mild left-sided ptosis present. Upper extremities with 5/5 strength symmetrically. Lower extremities with 4/5 strength symmetrically. DIAGNOSTICS Transthoracic echocardiogram 09/07/24 (outside echo) Lab Results: Hemoglobin 12.5. Hematocrit 38.2. RBC 4.09. MCV 93.4. RDW 15.1. Platelets 212. WBC 18.4. Neutrophils 16.85. Potassium 4.1. Sodium 142. Chloride 110. Bicarbonate 17. Anion gap 15. BUN 37. Creatinine 1.76. EGFR 38. Total calcium 8.8. Glucose 159. Total protein 5.9. Albumin 3.5. AST 155. ALT 92. Alk phos 101.Total bilirubin 0.4. Troponin T: 543. Creatinine kinase: 1259. 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 Dwyer is a 83 y.o. male with recurrent metastatic urothelial carcinoma who recently started treatment with pembrolizumab/Enfortumab on 08/05/24. He started cycle 2 on 08/29/24. He presented to the local infusion center today and was found to have severe weakness, dyspnea, and ptosis. He was admitted locally and found to have elevated CK (3687), troponin I 0.24 (ref range 0.01-0.04), and mildly elevated BNP 921. 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 He was initiated on high-dose steroids with methylprednisolone and further workup recommended including cardiac MRI, EMG, necrotizing myopathy panel, myasthenia gravis panel. No cardiac MRI was available locally, so he was transferred to [facility] for furthermanagement. PLAN: Trend CK and troponins. Oncology consult. Continue IV methylprednisolone 1 g daily - dose given at the outside hospital today. Will order next dose for tomorrow at noon and can be retimed if needed sooner. ICI toxicity workup ordered including cardiac MRI, EMG, necrotizing myopathy panel, and myasthenia gravis panel. Negative inspiratory force Q8H by RT. Given reports of hematuria, which often coincides with urinary tract infection, urinalysis has beenobtained. Continue home medications including allopurinol 300 mg daily, ferrous sulfate 65 mg 3 times weekly,losartan 100 mg daily, and Senokot 2 tablets BID. Atenolol 25 mg daily held due to impaired renal clearance. VTE: Heparin SQ 5,000 units TID GI: not indicated Code Status: Full Code Disposition: Home - self care Mallika Medina P.A.-C. 09/07/24 I personally spent a total of 90 minutes providing and coordinating care today. [1] Past Medical History: Diagnosis Date Apnea Sleep Obstructive Uses CPAP Benign Prostatic Hyperplasia With Lower Urinary Tract Symptom 07/25/2009 LW Modifier: s/p TURP ; BPH Age Related Prostate Ca Risk w Obst BenignProstatic Hyperplasia Localized 2011 Blood Transfusion No Diagnosis 2011 2-3 units Cataract 2015 Chronic Kidney Disease NOS Stage 4 Coronary Artery Disease NOS 2005 2 stents placed Defect Coagulation (HCC) 2011 Hernia Hyperlipidemia 2003 Hypertension NOS 2003 Malignant Neoplasm Of Bladder (HCC) 2007 Malignant Neoplasm Of Thyroid Papillary (HCC) 09/12/2022 Nodule Thyroid 2016 Other Injury Of Unspecified Body Region 1958 foot Other Pulmonary Embolism Without Acute Cor Pulmonale (HCC) 07/14/2011 Peripheral Vascular Disease Lower extremities Polyp Colon 2012 Thromboembolism NOS 2011 left leg Urostomy Status Post (HCC) [2] Past Surgical History: Procedure Laterality Date CARDIAC SURGERY 2005 2 stents placed CORONARY STENT PLACEMENT 2005 2 EXPLORATION CENTRAL NECK N/A 10/13/2022 Procedure: EXPLORATION CENTRAL NECK; Surgeon: Tam Stoddard M.D.; Location: [facility]GERY Bilateral cataract surgery IR IVC FILTER PLACEMENT 2012 removed within 6 months of placement MOHS EXCISION OF LESION Right 12/09/2016 >Mohs micrographic surgery with guided closure (right popliteal fossa). PROSTATE SURGERY 2012 W/ bladder surgery RADICAL CYSTECTOMY N/A 05/29/2011 Radical cystectomy. Bilateral pelvic lymph node dissection. Creation of ileal conduit. THYROIDECTOMY - LOBECTOMY Left 10/13/2022 Procedure: THYROIDECTOMY - LOBECTOMY.; Surgeon: Tam Stodadrd M.D.; Location: [facility] OR TONSILLECTOMY 1948 TRANSURETHRAL RESECTION OF BLADDER TUMOR N/A 05/01/2011 >Transurethral resection of multiple bladder tumors. URETEROSCOPY Left 10/07/2019 Procedure: ANTEGRADE URETEROSCOPY WITH BIOPSIES; Surgeon: Jayson Ron M.D.; Location: [facility] OR VITRECTOMY Left 2012 detached retina [3] No Known Allergies [4] Family History Problem Relation Name Age of Onset Other cancer Mother Corrine Dwyer unknown cancer, stomach area, liver? Prostate cancer Father Sedrick Dwyer Mother early 50s of stomach cancer Other cancer Sister Lyndsay Eliel 2021, heart attack Hypertension Sister Lyndsay Eliel Hyperlipidemia Sister Lyndsay Eliel Coronary artery disease Brother Freddy Yuliya Stents, 2021 Stroke Brother Freddy Yuliya Hypertension Brother Freddy Yuliya Hyperlipidemia Brother Freddy Yuliya Kidney disease Brother Freddy Yuliya Prostate cancer Sister Lyndsay Eliel in 2022 of aneurism Prostate cancer Brother Freddy Yuliya Twin brother stroke and heart attack age 72 documented in this encounter Consult Notes * Lulu Perez M.D. - 09/15/2024 3:36 PM CDT 83 yo M with hx UC s/p cystoprostatectomy, PLND, ileal [place] [address] Randhawa. [id number], s/p 6 cycles adjuvant gem/cis. He was disease free for many years until June 2024 CTU showed hydronephrosis and stranding in the left kidney, and multiple enlarged retroperitoneal nodes which were biopsied and positive for metastatic UC. 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 Urology was consulted for hematuria from his ileal conduit. On exam his urine is draining clear peach colored urine with some debris. He has not struggled withsevere recurrent infections. He does not have left or right flank pain. # hematuria - no intervention needed at this time. This is mild. # Left hydronephrosis - based on June 2024 CTU, suspect left kidney obstruction at the level of nodularity near the ureteroenteric anastomosis. - We discussed option for decompression versus further workup of this obstruction - Given that there is risk to the kidney with prolonged obstruction and he is here in the hospital,we would recommend nephrostomy tube placement. - He and his are most interested in discharging home and coming for short interval follow up for the kidney. Plan: - CTU and office visit with urology outpatient in next 1-2 weeks. Would try to coordinate this around his other appointments. - at this visit, need to discuss whether they want to pursue intervention for obstructed kidney in the form of nephrostomy tube. After the tract matures, this may be able to be converted to a ureteral stent. - We will arrange left neph tube consult with IR for after the clinic visit. Lulu Perez M.D. * Addy Robb, JALEESA, C.N.P. - 09/15/2024 1:38 PM CDT MEDICAL ONCOLOGY CONSULT SERVICE: CARE COORDINATION/BRIEF NOTE Primary Service: [facility] CARD 5 Local Oncologist: No care executive team leader to display [facility]ologist(s): Casimiro Chavez M.D., Ph.D. Reason(s) for consult: Known cancer diagnosis Suspected Immune Checkpoint Inhibitor (ICI) toxicity Patient not seen today OBJECTIVE Events over 24 hrs: none Recent Labs 09/15/24 0830 09/14/24 0704 09/13/24 0728 09/12/24 0752 09/11/24 0812 HGB 12.0 L 12.4 L 12.1 L 12.5 L 12.3 L WBC 19.1 H 13.4 H 11.8 H 11.2 H 10.2 H PLT 150 118 L 122 L 146 159 Recent Labs 09/15/24 0830 09/14/24 0704 09/13/24 0728 09/12/24 0752 09/11/24 0812 NA 143 143 138 136 139 KSERUM 4.3 4.0 4.2 4.5 4.7 CL 108 H 108 H 106 106 108 H BICARB 20 L 22 19 L 19 L 17 L BUN 76 H 69 H 72 H 69 H 64 H CREATININE 2.28 H 2.02 H 2.14 H 2.06 H 2.04 H Recent Labs 09/09/24 1019 09/07/24 1931 ALT 87 H 92 H AST 70 H 155 H Results from last 7 days Lab Units 09/15/24 0830 TRPS TROPONIN T ng/L 440* ASSESSMENT / PLAN Stage: No matching staging information was found for the patient. Current therapy: Enfortumab vedotin-ejfv / Pembrolizumab Oncology standpoint it appears the patient is appropriate for discharge. Long as the patient is discharging with the activated MoMe with the callback number to be Cards on-call at [phone]. Patient does have follow-up appointment in the [facility] Clinic on Saturday 09/16 for evaluation of his myocarditis. He should be discharging on 250 mg of prednisone with PJP and GI prophylaxis. ONCOLOGY RECOMMENDATIONS: Continue cardiac [place]metry [place] [facility] [place]. Cardiac MRI without clear evidence of myocarditis. 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 PJP prophylaxis with Bactrim and GI prophylaxis with pantoprazole Trend CK and Troponin T daily. Obtain Troponin I on Thursday, Thursday, and Thursday Neurology following for management of myositis Neurology has ruled out MG EMG and clinical exam consistent with ICI myositis Completed IVIG 0.4g/kg x 5 days Please ensure Neurology no longer intend to continue weekly maintenance IVIG PMR, PT/OT, CERTIFIED FORKLIFT OPERATOR consults for aggressive rehab Oncology follow up arranged: ICI follow up on 09/16 and 09/22 Cardio-Oncology appointment on 09/22 Onc follow up will be scheduled 09/22 Oncology plan for following: Oncology Consults will sign-off at this time. Please call us to re-engage if needed. Staffing: This case was staffed with Dr. Mills who is in agreement with this plan. Paging: Please page Oncology Consults Oncall with any questions at [phone] (service pager). M-F [id number], Tab Hutson Student Nurse on Consult service Addy Robb APRN, C.N.P. * Oxana Cardona M.D. - 09/15/2024 8:14 AM CDTAssociated Order(s): IP CONSULT TO UROLOGY UROLOGY SERVICE CONSULT NOTE: SUBJECTIVE REASON FOR CONSULT Hematuria HISTORY OF PRESENT ILLNESS Mr. Dwyer is a 83 y.o. male admitted for heart failure and ICI toxicity management who is seen in consultation for above. He is status post radical cystoprostatectomy with ileal conduit urinary diversion with on 05/29/2011. 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 Extranodal extension was identified in the lymph nodes on the left common iliac chain. Post surgery he proceeded with adjuvant chemotherapy receiving 6 cycles of gemcitabine. Seen in urology survivorship clinic on 06/24/2024 for bladder cancer recheck.Unfortunately he presented with a CT urogram that was concerning for multiple enlarged upper left retroperitoneal lymph nodes (largest measuring 2.8 x 2.5 cm). Lymph node biopsy at that time was positive for urothelial carcinoma. The patient has been recommended to follow up with medical oncology for further management of his bladder cancer PMH: CKD4, HTN, RUTHY, CAD, HLD Urologic History: Above Antiplatelets/Anticoagulants: Heparin 5000 TID while IP Steroids/Immunosuppressants/Diabetes: Prednisone while inpatient Medical History Medical History[1] Surgical History Surgical History[2] Social History Social History[3] Allergies No Known Allergies OBJECTIVE BP (!) 161/67 (BP Location: Right arm;Upper, Patient Position: Sitting) Pulse 71 Temp 36.6 ??C (Oral) Resp 19 Ht 188 cm Wt 124 kg SpO2 97% BMI 35.18 kg/m?? PHYSICAL EXAMINATION General: Pt in bed, comfortable appearing. Respiratory: Nonlabored breathing Abdomen: Soft, nondistended, nontender. Large parastomal hernia. : ileostomy intack, pink stoma with some mild hematuria. Attached to catheter bag, draining cleartea urine. I/O: Date 09/14/24 07 - 09/15/24 0659 09/15/24 07 - 09/16/24 0659 Shift 0581-8752 3548-2668 0947-5489 24 Hour Total 1969-5641 6637-9810 4533-1740 24 Hour Total INTAKE P.O. 420 240 660 360 360 Shift Total(mL/kg) 420(3.4) 240(1.9) 660(5.3) 360(2.9) 360(2.9) OUTPUT Urine(mL/kg/hr) 450(0.4) 1350(1.3) 1100(1.1) 2900(1) Urine Output (mL) (Urostomy Ileal conduit RLQ) 450 1350 1100 2900 Shift Total(mL/kg) 450(3.6) 1350(10.8) 1100(8.8) 2900(23.3) [facility] -30 -1110 -4118 -4208 360 360 Weight (kg) 125.1 125.1 124.3 124.3 124.3 124.3 124.3 124.3 DIAGNOSTICS Labs: Lab Results Component Value Date NA 143 09/14/2024 CL 108 (H) 09/14/2024 BUN 69 (H) 09/14/2024 HGB 12.4 (L) 09/14/2024 HCT 37.4 (L) 09/14/2024 WBC 13.4 (H) 09/14/2024 Lab Results Component Value Date/Time CREATININE 2.02 (H) 09/14/2024 07:04 AM CREATININE 2.14 (H) 09/13/2024 07:28 AM CREATININE 2.06 (H) 09/12/2024 07:52 AM CREATININE 2.04 (H) 09/11/2024 08:12 AM CREATININE 1.97 (H) 09/10/2024 07:44 AM Imaging: I personally reviewed the CT urogram from June with the patient. On my interpretation, it demonstrates bilateral hydronephrosis, likely from reflux. Left periureteral fat stranding and possible leftureteral obstruction at level of nodularity near ureteroenteric anastomosis ASSESSMENT / PLAN Mr. Dwyer is a 83 y.o. male with one episode of gross hematuria while inpatient and left hydronephrosis seen on CT Urogram from June. 1. Gross hematuria 2. Hydronephrosis 3. additional comorbidities include: CKD4, HTN, RUTHY, CAD, HLD Problem List[4] RECOMMENDATIONS: # hematuria - no intervention needed at this time. This is mild. # Left hydronephrosis - based on June 2024 CTU, suspect left kidney obstruction at the level of nodularity near the ureteroenteric anastomosis. - We discussed option for decompression versus further workup of this obstruction - Given that there is risk to the kidney with prolonged obstruction and he is here in the hospital,we would recommend nephrostomy tube placement. - He and his are most interested in discharging home and coming for short interval follow up for the kidney. Plan: - CTU and office visit with urology outpatient in next 1-2 weeks. Would try to coordinate this around his other appointments. - at this visit, need to discuss whether they want to pursue intervention for obstructed kidney in the form of nephrostomy tube. After the tract matures, this may be able to be converted to a ureteral stent. - We will arrange left neph tube The above was discussed with Dr. Perez, the chief urology resident potline monitor. I saw and evaluated the patient with the teaching physician Dr.Vidit Joaquin. They were present during the [place]ura portions of the service and reviewed and agreed with my documentation[place] [id number] from 7AM-5PM, Urology After Hours Pager: [phone] Oxana Cardona M.D. Urology, PGY-1 Personal Pager: [phone] [1] Past Medical History: Diagnosis Date Apnea Sleep Obstructive Uses CPAP Benign Prostatic Hyperplasia With Lower Urinary Tract Symptom 07/25/2009 LW Modifier: s/p TURP ; BPH Age Related Prostate Ca Risk w Obst BenignProstatic Hyperplasia Localized 2012 Blood Transfusion No Diagnosis 2011 2-3 units Cataract 2015 Chronic Kidney Disease NOS Stage 4 Coronary Artery Disease NOS 2006 2 stents placed Defect Coagulation (HCC) 2012 Hernia Hyperlipidemia 2003 Hypertension NOS 2003 Malignant Neoplasm Of Bladder (HCC) 2007 Malignant Neoplasm Of Thyroid Papillary (HCC) 09/12/2022 Nodule Thyroid 2016 Other Injury Of Unspecified Body Region 1958 foot Other Pulmonary Embolism Without Acute Cor Pulmonale (HCC) 07/14/2011 Peripheral Vascular Disease Lower extremities Polyp Colon 2012 Thromboembolism NOS 2012 left leg Urostomy Status Post (HCC) [2] Past Surgical History: Procedure Laterality Date CARDIAC SURGERY 2005 2 stents placed CORONARY STENT PLACEMENT 2005 2 EXPLORATION CENTRAL NECK N/A 10/13/2022 Procedure: EXPLORATION CENTRAL NECK; Surgeon: Tam Stoddard M.D.; Location: [facility] OR EYE SURGERY Bilateral cataract surgery IR IVC FILTER PLACEMENT 2011 removed within 6 months of placement MOHS EXCISION OF LESION Right 12/09/2016 >Mohs micrographic surgery with guided closure (right popliteal fossa). PROSTATE SURGERY 2011 W/ bladder surgery RADICAL CYSTECTOMY N/A 05/29/2011 Radical cystectomy. Bilateral pelvic lymph node dissection. Creation of ileal conduit. THYROIDECTOMY - LOBECTOMY Left 10/13/2022 Procedure: THYROIDECTOMY - LOBECTOMY.; Surgeon: Tam Stoddard M.D.; Location: [facility] OR TONSILLECTOMY 194 TRANSURETHRAL RESECTION OF BLADDER TUMOR N/A 05/01/2011 >Transurethral resection of multiple bladder tumors. URETEROSCOPY Left 10/07/2019 Procedure: ANTEGRADE URETEROSCOPY WITH BIOPSIES; Surgeon: Jayson Ron M.D.; Location: [facility] [facility] OR VITRECTOMY Left 2012 detached retina [3] Social History Tobacco Use Smoking status: Former Current packs/day: 0.00 Average packs/day: 1 pack/day for 20.0 years (20.0 ttl pk-yrs) Types: Cigarettes Start date: 04/22/1959 Quit date: 04/22/1989 Years since quittin.4 Passive exposure: Past Smokeless tobacco: Never Vaping Use Vaping status: never used Substance Use Topics Alcohol use: Yes Alcohol/week: 6.0 standard drinks of alcohol Types: 4 Glasses of wine, 2 Cans of beer per week Comment: Light social drinker Drug use: Never [4] Patient Active Problem List Diagnosis Conduit Ileal (HCC) Personal History Of Malignant Neoplasm Of Bladder Enterostomy Hernia Parastomal (HCC) Apnea Sleep Obstructive Central Sleep Apnea Syndrome Urostomy Status Post (HCC) Morbid Obesity Body Mass Index 40.0-44.9 Adult (HCC) 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 Or Unspecified Chronic Kidney Disease Hyperlipidemia Atherosclerotic Heart Disease Of Hughes Coronary Artery Without Angina Pectoris Hernia Ventral Defect Abdominal Wall Acquired Detachment Retinal With Defect Polyp Colon Adenomatous Personal History Cancer Thyroid Papillary Personal History Chronic Kidney Disease (CKD), Stage 3b Glomerular Filtration Rate (GFR) 30 To 44 (HCC) Venous Insufficiency Chronic Peripheral Embolus Pulmonary Personal History Localized Enlarged Lymph Nodes Secondary Malignant Neoplasm Lymph Node (HCC) Malignant Neoplasm Of Bladder (HCC) Myositis Cosigned by Migue Joaquin M.D. at 09/15/2024 5:58 PM CDT Associated attestation - Migue Joaquin M.D. - 09/15/2024 5:58 PM CDT #1 left distal ureteral soft tissue thickening suspicious for urothelial carcinoma with left renal obstruction on June 2024 CT Urogram #2 recently diagnosed retroperitoneal recurrence of urothelial carcinoma on ICI therapy with subsequent cardiac myositis #3 mild KALEE (Cr 1.7 to 2.2) I had a long discussion with the patient and his in the presence of our chief resident, Dr. Perez. The patient has an obstructed left ureter and we gave him and his some options: - observation for now followed by outpatient evaluation with repeat CTU and discussion of decompression via nephrostomy tube - nephrostomy tube placement in the hospital while he is admitted, with possible delayed antegrade stent placement once the tract has matured We discussed that if the blockage remains untreated for long periods of time, the kidney would losefunction and it already appears slightly atrophic compared to the right. Our recommendation was to have the left nephrostomy tube placed while he is an inpatient here in the next day or two. The patient and his were very overwhelmed with this decision and they did not want to make this decision now and instead wanted to go home. In this context, we will arrange outpatient follow up with urology in the next 1-2 weeks with CTU, BMP, and a prescheduled left nephrostomy tube placement. I personally spent over half of a total 35 minutes face to face with the patient in counseling and discussion and/or coordination of care as described above. * Yenni Alvarado M.A., [facility]-CERTIFIED FORKLIFT OPERATOR - 09/09/2024 10:10 AM CDT Speech Language Pathology Dysphagia and Communication/Cognitive Evaluation- Acute Care Session Type: Evaluation Length of session: 40 minutes Time of Dysphagia Session: 1010 SUBJECTIVE Referred By: RST CARD 5 History: Mr. Dwyer is a 83 y.o. male with recurrent metastatic urothelial carcinoma who was admitted to [facility] on 09/07/2024 presenting withy fatigue, muscle weakness, double vision, and left eyelid droop, with concerns for Triple M Overlap Syndrome. 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 Neurology was consulted and found myositis without muscle fatigability, as well as completed EMG that are not consistent with neuromuscular disorder. He was started on IVIG treatment. Mr. Dwyer's medical history is well documented in the electronic medical record, please refer to admission notes for full history. Speech Pathology consult was received for evaluation of cognitive communication and dysphagia. Prior Level of Functioning: Mr. Dwyer was previously independent with all ADL and IADLs. He lives with his spouse in [place], [place]. 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 He enjoys reading and fishing. Patient/Family Goal(s): To get better and go home General Family/Caregiver Present: Yes Arousal/Alertness: Appropriate responses to stimuli Current Vision: Wears glasses only for reading Hearing: Within Normal Limits (WNL) Behavior: Alert, Cooperative, Pleasant mood, Distractible Pain No signs of pain observed or reported. OBJECTIVE Objective Session Data Oral Motor Dentition: Adequate Facial Symmetry: (0) Within Normal Limits Labial Structure and Function: Within Normal Limits (WNL) Lingual Structure and Function: Within Normal Limits (WNL) Palatal Structure and Function: Within Normal Limits (WNL) Mandible Strength and Function: Within Normal Limits (WNL) Laryngeal Function: Within Normal Limits (WNL) Motor Speech Voice: Impaired Pitch Breaks: (1) Mild Respiration: Within Normal Limits (WNL) Resonance (TRUCK BODY BUILDER Function): Within Normal Limits (WNL) Articulation: Within Normal Limits (WNL) Rate and Prosody: Within Normal Limits (WNL) Intelligibility: Intelligible Cognition Overall Cognitive Status: Within Functional Limits (WFL) Sustained: Mild Memory: Within Functional Limits (WFL) Orientation: Oriented X4 Disinhibition: Mild Cognition Comments: loquacious and tangential Pragmatics Affect: Within Normal Limits (WNL) Prosody: Within Normal Limits (WNL) Eye Contact: Within Normal Limits (WNL) Humor: Within Normal Limits (WNL) Topic Initiation: Within Normal Limits (WNL) Topic Maintenance: Moderate Turn Taking: Moderate Consistencies Assessed: Level 0 Thin Presentation: Straw Number of Trials Given: 10 Oral: Within Normal Limits (WNL) Pharyngeal: Within Normal Limits (WNL) Level 4 Puree Presentation: Spoon Number of Trials Given: 5 Oral: Within Normal Limits (WNL) Pharyngeal: Within Normal Limits (WNL) Level 7 Regular Number of Trials Given: 8 Oral: Within Normal Limits (WNL) Pharyngeal: Within Normal Limits (WNL) Patient/Caregiver Training and Education:role of CERTIFIED FORKLIFT OPERATOR, rational of assessment/evaulation, and strategies/precautions. Patient/caregivers demonstrated understanding of the information provided. At the end of today's session patient was left in bed with family. Call light was left within reach. Patient's needs and questions were addressed to the best of my ability and within the scope of Speech Pathology during today's session. Assessment Dysphagia: Mr. Dwyer was alert and positioned at the edge of the bed for the assessment. Vitals were within acceptable parameters. Please refer to Objective section for additional details of the oral motor/mechanism exam. Mr. Dwyer was administered small sips of water via straw, bites of applesauce, and bites of david cracker.Oral containment was adequate. Mastication of the cracker was timely and complete. No residue was retained in the oral cavity post-swallow. Laryngeal elevation was present on palpation with one swallow per bolus. No coughing, throat clearing, or changes in vocal quality was appreciated after any po trial. Summary: Mr. Dwyer presents with an oropharyngeal swallow that appears within functional limits during this clinical evaluation. No s/s aspiration were observed. At this time, swallow function appears adequateto continue a regular diet with thin liquids, with adherence to swallowing recommendations. Speech Pathology will follow up to monitor diet tolerance. Cognitive-Communication: Mr. Dwyer participates in evaluation to assess speech, language, and cognition. He and his denyany particular cognitive changes, aside from his commenting on the amount he talks now. Oralmotor exam is notable for mild facial weakness. He has a difficult time holding his head fully upright. Speech production is of normal rate, rhythm, and articulatory precision. His vocal quality is slightly hoarse, with occasional pitch breaks. Conversational intelligibility is 100%. Verbal expression is logically and grammatically organized. There is no evidence of a focal language impairment. Mr. Dwyer is fully oriented, and demonstrates adequate understanding of discourse. He recalls specificevents pertaining to his medical updates, therapy, etc, without difficulty. He is quite loquacious and tangential in conversation, although he has adequate organization and thought formulization. He does not always recognize his tangentiality, but is easily redirected. He and his attribute this as a symptom of his medication. Overall, Mr. Dwyer appears to have some pragmatic difficulty, but otherwise no overt cognitive deficits in comparison to his baseline. I would favor his current presentation is impacted by his currenthospitalization or medication effects. We will continue to monitor to assess for changes in speech and cognition as needed. Goals: Dysphagia Group Home Goal Dysphagia Group Home Goal: Patient will tolerate least restrictive diet without overt s/s suggestiveof aspiration Dysphagia Group Home Goal Progress Toward Goal: Progress toward goal completion: continue on target Cognition Metallurgical Tester Goal Cognition Group Home Goal: Patient will participate in ongoing cognitive communication evaluation. Cognition Group Home Goal Progress Toward Goal: Progress toward goal completion: continue on target Diagnosis: Dysphagia Consistent with a diagnosis of:: Within Normal Limits (WNL) Plan DYSPHAGIA RECOMMENDATIONS: Diet Recommendation-Solids: IDDSI Level 7 Regular Diet Recommendation-Liquids: IDDSI Level 0 Thin Medication Recommendation: Whole with liquid Safety Precautions: Upright for all intake Alternate solids/liquids Eat and drink at a slow rate CERTIFIED FORKLIFT OPERATOR will follow up to ensure diet tolerance. Please contact: CERTIFIED FORKLIFT OPERATOR [phone] for questions/concerns. Discharge Location: Home CERTIFIED FORKLIFT OPERATOR Ongoing Services: Ongoing formal Speech Pathology services Duration of Treatment: until goals are met Rehab Potential: Excellent Speech Pathology Service Pager: Dysphagia [phone] Speech Pathology Service Pager: Communication [phone] * Emani Jama ORoberta, BCPR - 09/09/2024 9:24 AM CDT Occupational Therapy Acute Hospital Inpatient Evaluation/Treatment SUBJECTIVE Patient's Name: Michael Dwyer Referring/Attending Provider: Miko Douglas M.D. Reason for Referral: Occupational Therapy Evaluation and Treatment Onset Date: 09/07/2024 PERTINENT MEDICAL / SURGICAL HISTORY: Medical History[1] Surgical History[2] History of Present Illness: Michael Dwyer is a 83 y.o. male who was admitted to [facility] in [place] on 09/07/2024 for Myositis [M60.9]. Relevant Medical History: Admitted due to myositis. History of bladder cancer, chronic kidney disease, use insufficiency, obesity, RUTHY, hypertension, hyperlipidemia. 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 Patient/Caregiver Goals: Discharge home Subjective Comments: Agreeable to therapy session. Home Living and Equipment: Lives with: Spouse/Significant other, Randa, independent, able to assist Receives help from: Spouse/Significant other [facility]: [facility] Home Layout: Able to live on main level with bedroom/bathroom Laundry main level Home Access: Stairs to enter: Number of steps: 2, Railing: bilateral handrails Bathroom Accessibility: Accessible via walker Shower: Walk-in Shower Enclosure Type: Door Bathroom Equipment: Grab bars in shower, Hand-held shower head, Shower chair with back, no slip mat Toilet: Comfort Toilet Toilet Equipment: partial wall Assistive Device Owned: Front wheeled walker, Single point cane, hiking sticks Adaptive Equipment Owned: None Other DME Owned: Adjustable bed Patient reports he recently worked with another OT at an outside hospital during a recent admission. He reports they provided recommendations of durable medical equipment at that time for the bathroom. Prior Level of Function and Mobility: Basic Activities of Daily Living: Independent Instrumental Activities of Daily Living: Required Assistance: Meals/Cooking, Housekeeping, Laundry, finances performs Independent with medication management using pill Functional Mobility: Independent. 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 Leisure Interests: history buff, reading, computer, senior lectures OBJECTIVE Vital Signs: Vitals taken during session: Pulse rate: 55-73 bpm Evaluation Assessment: STRENGTH: Generalized weakness Neck weakness - new per patient report RANGE OF MOTION: Right upper extremity impaired - mild impairments from baseline Left upper extremity impaired - mild impairments from baseline Reports left side feels weaker BALANCE: Static Sitting: Good (Maintains balance without support) Dynamic Sitting: Good (Maintains balance without support) Static Standing: Fair (Maintains balance with handheld assist) Dynamic Standing: Poor (Requires assist to maintain balance) ACTIVITY TOLERANCE: Endurance: Tolerates 10-20 minutes of activity HEARING/VISION: Hearing: Hearing Intact Baseline Vision/Correction: Wears glasses all the time Vision Impairments: Blurry Vision, Double Vision - patient reports new vision changes, states mostly in right eye. States he is currently taking eye drops several times a day. SENSATION/PERCEPTION: Sensation: Reports numbness, Location: bilateral feet, reports some is baseline, and some is new with numbness now up to bilateral calf POSTURE/POSTURAL CONTROL: Head/Neck Control: forward cervical flexion, able to complete neck range of motion, however due to weakness in forward flexion motion Outcome Measures: AM-PAC Inpatient Short Form: Putting on and taking off regular lower body clothing?: A lot Putting on and taking off regular upper body clothing?: A Little Taking care of personal grooming such as brushing teeth?: A Little Bathing (including washing, rinsing, drying)?: A lot Toileting, which includes using toilet, bedpan, or urinal?: Total Eating meals?: None Daily Activities Raw Score (max 24): 15 Daily Activities Standardized Score: 34.69 Interpretation: Based on scoring guidelines using the raw score value: Those going to home had an average score at or above 18 Those going to facility had an average score at or below 17 Clinicians answer the AM-PAC Inpatient Short Form based on observed patient activity and/or clinical judgment (patient can be scored without physically performing each activity). The AM-PAC is one ofmany factors to consider when discharge planning. Cognition: Will further assess and monitor as warranted - Orientation: oriented x4 - Arousal/Alertness: appropriate responses to stimuli Therapeutic Interventions: ACTIVITIES OF DAILY LIVING: GROOMING - Assist Level: stand by assist - Patient Location: standing at sink - Activity: brushing teeth - regular or soft brush, combing hair, washing face, washing hands, shaving with electric razor - Therapist Delivery: assessed, facilitated - Assist/Cues Provided: verbal and visual for guided practice - Tolerated: 12 mins of standing FUNCTIONAL TRANSFERS: SIT<>STAND - Assist Level: contact guard assist - Device: front wheeled walker and gait belt - Surface: bed - Therapist Delivery: assessed, facilitated, instructed - Assist/Cues Provided: verbal and visual for technique, proper hand placement TOILET TRANSFER - Assist Level: contact guard assist - Device: front wheeled walker and gait belt - Approach: to and from, ambulating - Surface: toilet - Therapist Delivery: assessed, facilitated - Assist/Cues Provided: verbal and visual for technique, proper hand placement - Adaptive Equipment: grab bars FUNCTIONAL MOBILITY: In-room mobility performed with contact guard assistance and front wheeled walker and gait belt Education/Training Provided: Provided education on role of occupational therapy in the acute setting. Collaborated with patient and/or family on goals and plan of care. Vision: Provided recommendations on adaptive strategies and energy conservation techniques to consider with blurry and double vision symptoms. Patient does report symptoms increase with fatigue and overuse of eyes. Recommendations to take eye rest breaks with reading, watching TV, and use of cell phone. Education also given on options to follow-up with vision therapy services after hospital discharge. Team Communication: The patient's status was discussed and coordination of care occurred with dryland farmer/Caregiver Present: Patient was left edge of bed at end of session with call light in reach, all needs met and questions answered. Assessment Discharge Therapy Needs - OT: Ongoing skilled occupational therapy If skilled therapy is recommended, skilled therapy can include occupational therapy provided in home health, outpatient or post-acute facility. The location of these services is determined by patient's care team in partnership with patient/family. Level of Care Needed - OT: Assistance with toileting, Assistance with dressing, Assistance with toilet/shower transfers, Assistance with meal preparation, Assistance with showering/bathing, Assistance with housekeeping, Assistance with transportation, Assistance with shopping Barriers to Discharge Home: Current functional status, Fall risk Clinical Impression: Currently, patient presents with impairments including decreased strength, impaired balance, decreased activity tolerance, and new vision changes with blurred and double vision resulting in functional deficits including impaired functional mobility and decreased independence with self care tasks. The patient participated well in toileting, standing grooming tasks, and mobility in his room. The patient does report vision changes as a main compliant. OT initiated education on adaptive and compensatory strategies to consider with vision impairments. He may benefit from follow-up if these vision issues continue to persist. The patient will benefit from ongoing occupational therapy services while hospitalized in order to improve engagement and independence in meaningful occupations. Plan OT Plan Comments: Next Session: follow-up on vision changes - provide compensatory/adaptive techniques, mobility into bathroom, total body dressing -AE? Functional Goals: OT Goal #1: Patient will complete total body dressing with modified independence to maximize independence and decrease dependence on others. OT Goal #2: Patient will complete toileting skills including hygiene, clothing management, and transfer with modified independence to maximize independence and decrease dependence on others. OT Goal #3: Patient will perform standing grooming with modified independence to return to prior level of function. OT Goal #4: Patient and family will verbalize understanding of recommended home going durable medical equipment. Progress: Progressing toward goals Rehab potential: Mr. Dwyer has excellent potential to achieve established occupational therapy goalswithin the time frame outlined below. OT Frequency: OT Amount: 1 visit per day OT Frequency: 5 times per week OT Inpatient Duration : Until goals are met or hospital discharge Requires Inpatient OT Follow-Up: Yes OT - Next Inpatient Appointment: 09/12/24 Plan: Plan of care initiated Treatment interventions may include: Treatment Interventions: Therapeutic exercise, Therapeutic functional activity, Self-care/home management, Neuromuscular re-education, Cognitive skills training Occupational Therapy Attestation Statement: Patient agrees with the plan of care and goals. Billing: Tiered OT Evaluation Codes: Comorbid Conditions: Obesity, Cancer, Renal disease, Cardiopulmonary disease Personal Factors: Age, Needs assistive device, Visual impairment Occupational Profile and History review: Expanded Performance Deficits: 3 - 5 performance deficits Evaluation Complexity: Moderate Time Spent with Patient Evaluations OT Eval - Mod Complexity: 10 min Therapeutic Interventions Home Management Training (min): 43 min Time Tracking Total Timed Units (min): 43 min Total Treatment Time (min): 53 min Emani Jama O.T., BCPR [1] Past Medical History: Diagnosis Date Apnea Sleep Obstructive Uses CPAP Benign Prostatic Hyperplasia With Lower Urinary Tract Symptom 07/25/2009 LW Modifier: s/p TURP ; BPH Age Related Prostate Ca Risk w Obst BenignProstatic Hyperplasia Localized 2012 Blood Transfusion No Diagnosis 2011 2-3 units Cataract 2015 Chronic Kidney Disease NOS Stage 4 Coronary Artery Disease NOS 2006 2 stents placed Defect Coagulation (HCC) 2011 Hernia Hyperlipidemia 2003 Hypertension NOS 2003 Malignant Neoplasm Of Bladder (HCC) 2008 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 OR EYE SURGERY Bilateral cataract surgery IR IVC FILTER PLACEMENT 2012 removed within 6 months of placement MOHS EXCISION OF LESION Right 12/09/2016 >Mohs micrographic surgery with guided closure (right popliteal fossa). PROSTATE SURGERY 2011 W/ bladder surgery RADICAL CYSTECTOMY N/A 05/29/2011 Radical cystectomy. Bilateral pelvic lymph node dissection. Creation of ileal conduit. THYROIDECTOMY - LOBECTOMY Left 10/13/2022 Procedure: THYROIDECTOMY - LOBECTOMY.; Surgeon: Tam Stoddard M.D.; Location: [facility] OR TONSILLECTOMY 1948 TRANSURETHRAL RESECTION OF BLADDER TUMOR N/A 05/01/2011 >Transurethral resection of multiple bladder tumors. URETEROSCOPY Left 10/07/2019 Procedure: ANTEGRADE URETEROSCOPY WITH BIOPSIES; Surgeon: Jayson Ron M.D.; Location: [facility] OR VITRECTOMY Left 2012 detached retina * Miguel Dueñas M.D. - 09/08/2024 6:13 PM CDTAssociated Order(s): IP CONSULT TO PHYSICAL MEDICINE & REHABILITATION SUBJECTIVE REFERRAL SOURCE Marga Hernandez P.A.-C., M.S. REASON FOR CONSULT Immune checkpoint inhibitor myositis. HISTORY OF PRESENT ILLNESS Mr. Dwyer is a delightful 83-year-old man from [place], [place]. 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 He is currently hospitalized with immune checkpoint inhibitor myositis and myocarditis. He has noted progressive weakness resulting in head drop, difficulty standing and increasing difficulty with self-care activities. He has been started on methylprednisolone and already notes substantial improvement in his strength. 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 REVIEW OF SYSTEMS Mr. Dweyr notes a degree of lower extremity numbness, but denies balance difficulties until recentlywhen his weakness progressed. He has lower extremity edema for which he uses compression garments. His reports that he has developed a degree of loquaciousness since beginning IV methylprednisolone. He has lost 60 pounds (intentionally) and is hoping to lose 25 more. SOCIAL HISTORY Mr. Dwyer acknowledges he has been quite sedentary recently, and this too may have contributed to some of his weakness. His estimates on some days he would not take more than 10-20 steps. He lives in a 2-level town home but does not need to climb any stairs to access the main level. He has alpesh Chevy Tahoe SUV and a [employer] [place]. Unfortunately, the [place] is a bit too tall and the Gretchen LS [employer] is a bit low, making it difficult to get up from the seat. MEDICAL HISTORY Notable for venous thromboembolism, peripheral vascular disease, chronic kidney disease, urothelialcarcinoma status post cystectomy. FAMILY HISTORY Notable for prostate cancer, cardiovascular disease, and cerebral vascular disease. OBJECTIVE PHYSICAL EXAMINATION General Appearance: Pleasant, alert, conversational individual in no acute distress. Psychiatric: Mood and mental status is normal. Respiratory: Breathing comfortably on room air. Neurologic : There is a notable head drop. There is bilateral deltoid and hip flexor weakness. Strength is well preserved distally. Vascular : There is venous stasis dermatitis affecting both lower extremities with mild edema. Musculoskeletal : Range of motion examination of the upper and lower limbs is within functional limits. DIAGNOSTICS CK has dropped from 1259 to 587 in the last 24 hours. ASSESSMENT / PLAN #1 Immune checkpoint inhibitor myopathy Physical and Occupational Therapy will see Mr. Dwyer to ensure he can mobilize safely, participate in a home exercise program and meet his self care needs when he is medically ready to discharge to home. As he is already walking laps on the nursing unit with only contact assistance and a walker, he is unlikely to require a post acute placement. Given his debility, neuropathy and his other comorbid conditions, he will benefit from outpatient physical therapy for ongoing pentecostal of strength, endurance, and overall fitness, as well as a stretching and range of motion program to maintain and improve his flexibility. Our service will follow. Miguel Dueñas M.D. CT CT Job ID: [id number] * Andre Peralta PRoberta, D.P.T., [facility] - 09/08/2024 3:56 PM CDT Physical Therapy Inpatient Evaluation/Treatment SUBJECTIVE Patient's Name: Michael Dwyer Referring/Attending Provider: Garrison Gardner M.D. Reason for Referral: Physical Therapy Evaluate and Treat Onset Date: 09/07/2024 Pertinent Medical / Surgical History: Medical History[1] Surgical History[2] History of Present Illness: Michael Dwyer is a 83 y.o. male who was admitted to [facility] in [place] on 09/07/2024 for Myositis [M60.9]. 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 Home Living and Equipment: Lives with: Spouse/Significant other, Randa, independent, able to assist Receives help from: Spouse/Significant other Type of [facility]: [facility] Home Layout: Able to live on main level with bedroom/bathroom Laundry main level Home Access: Stairs to enter: Number of steps: 2, Railing: bilateral handrails Bathroom Accessibility: Accessible via walker Shower: Walk-in Shower Enclosure Type: Door Bathroom Equipment: Grab bars in shower, Hand-held shower head, Shower chair with back, no slip mat Toilet: Comfort Toilet Toilet Equipment: partial wall Assistive Device Owned: Front wheeled walker, Single point cane, hiking sticks Adaptive Equipment Owned: None Other DME Owned: Adjustable bed Prior Level of Function and Mobility: Basic Activities of Daily Living: Independent Instrumental Activities of Daily Living: Required Assistance: Meals/Cooking, Housekeeping, Laundry, finances performs Independent with medication management using pill Functional Mobility: Independent. 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 Leisure Interests: history buff, reading, computer, senior lectures OBJECTIVE Vital Signs: Vitals taken during session: Pulse rate: 67 bpm, Blood pressure: 165/66 mmHg, MAP: 95, O2 saturation: 97%, O2 flow: Room air, and Respiratory Rate:15 Evaluation Assessments: Strength: Good-normal lower extremity strength, left hip flexor weaker than right Range of Motion:Lower extremities within functional limits Balance: Static Sitting: Good (Maintains balance without support) Dynamic Sitting: Good (Maintains balance without support) Static Standing: Fair (Maintains balance with handheld assist) Dynamic Standing: Poor (Requires assist to maintain balance) and requiring front wheeled walker Activity Tolerance: Endurance: Tolerates 20-30 minutes of activity Posture/Postural Control: Head Control: Forward head, downward gaze Trunk Control: Thoracic kyphosis, forward flexed posture Cognition: Alert, Oriented x 4, tangential Sensation/Perception: Sensation: Chronic peripheral neuropathy bilateral feet, diminished sensationto light touch bilateral feet Hearing: Hearing Intact Vision: Baseline Vision/Correction: Wears glasses all the time Outcome Measures: AM-[facility] Inpatient Short Form: AM-[facility] Basic Mobility (V.2) How much help from another person do you currently need???If the patient hasn't done an activity recently, how much help from another person do you think he/she would needif he/she tried? 1. Turning from your back to your side while in a flat bed without using bedrails?: A Little 2. Moving from lying on your back to sitting on the side of a flat bed without using bedrails?: A Little 3. Moving to and from a bed to a chair (including a wheelchair)?: A Little 4. Standing up from a chair using your arms (e.g., wheelchair, or bedside chair)?: A Little 5. To walk in hospital room?: A Little 6. Climbing 3-5 steps with a railing?: A Little AM-PAC Basic Mobility (V.2) Raw Score: 18 AM-PAC Basic Mobility (V.2) Standardized Score: 41.05 Interpretation: Based on scoring guidelines using the raw score value: Those going to home had an average score at or above 18 Those going to facility had an average score at or below 17 Clinicians answer the AM-PAC Inpatient Short Form based on observed patient activity and/or clinical judgement (patient can be scored without physically performing each activity). The AM-PAC is one of many factors to consider when discharge planning. Therapeutic Interventions: SIT TO STAND: - Assist Level: contact guard assist of 1 - Device: gait belt and front wheeled walker - Surface: bed - Therapist Delivery: assessed, assisted, educated, facilitated, and instructed - Assist/Cues Provided: verbal, tactile, and visual for anterior weight shift, device placement, lower extremity placement, safety, sequencing, technique, terminal hip extension, upper extremity placement, upright posture, and use of momentum STAND TO SIT: - Assist Level: contact guard assist of 1 - Device: gait belt and front wheeled walker - Surface: bed - Therapist Delivery: assessed, assisted, educated, facilitated, and instructed - Assist/Cues Provided: verbal, tactile, and visual for alignment with seated surface, device placement, eccentric control, hip flexion, safety, lower extremity placement, and upper extremity placement PRE-GAIT: - Activity:marching - Assist Level: contact guard assist of 1 - Device: gait belt and front wheeled walker - Therapist Delivery: assessed, assisted, educated, facilitated, and instructed - Assist/Cues Provided:verbal, tactile, and visual for upright posture, forward looking, and foot clearance - Reps: 3 GAIT: - Distance: 73.15 meters (1 standing rest break) - Assist Level:contact guard assist of 1 - Device: gait belt and front wheeled walker - Quality: decreased base of support, decreased heel strike, decreased step height, decreased step length, decreased toe off, downward gaze, forward flexed posture, steady, step through - Therapist Delivery: assessed, assisted, educated, facilitated, and instructed - Assist/Cues Provided:verbal, tactile, and visual for forward gaze, heel strike, pacing, placementwithin the walker, technique, toe off, and upright posture - Comments: Monitoring for dyspnea taking rest break as needed THERAPEUTIC EXERCISE: Standing Therapeutic Exercise: - Side: bilateral lower extremity(ies) - Mode: active range of motion - Exercises: marching - Repetitions: 3 - Assist/cues provided: Upright posture, forward gaze, foot clearance EDUCATION: Provided education on role of physical therapy in the acute setting. Collaborated with patient and/or family on goals and plan of care. Functional Transfers: -Provided instruction and cues during functional sit to/from stand transfers, including body alignment to surface, appropriate hand placement, and optimal placement of surgical extremity to optimize safety and technique. DME: -Educated patient/caregiver regarding recommended use of mobility equipment. The patient's status was discussed and the following coordination of care occurred with the RN and Family/Caregiver Family/Caregiver Present: randa Patient was left at edge of bed, with nursing staff, and at end of session with call light in reach, all needs met and questions answered. Assessment Discharge Therapy Needs - PT: Ongoing skilled physical therapy If skilled therapy is recommended, skilled therapy can include physical therapy provided by home health, outpatient clinic, or a post-acute facility. The location of these services is determined by the patient's care team in partnership with patient/family. Level of Care Needed - PT: Assistance with transfers (Comment), Assistance with walking and moving around the home Barriers to Discharge Home: Current functional status, Fall risk, Safety concerns Equipment Recommended - PT: Front-wheeled walker Patient owns front wheeled walker. From a physical therapy perspective, the level of care above has been recommended for Mr. Dwyer after hospital discharge. This level of care is based on his functional abilities during today's session. This may change throughout the hospital course and will be updated as appropriate. Clinical Impression: At baseline patient lives at home with his and was independent with mobility without gait device. Patient single fall history over the past year when getting out of a boat. Patient is currently mobilizing well requiring contact guard assistance with sit<> stand transfers using front wheeled walker, contact guard assistance ambulating a distance of 73 m with singlestanding rest break. Recommend patient increase activity as tolerated working the below listed activity goals. Currently, patient presents with decreased strength, impaired static balance, impaired dynamic balance, decreased activity tolerance, and cardiopulmonary impairments resulting in the following impaired bed mobility, impaired transfers, impaired gait, and impaired ability to complete stairs. Physical therapy treatment is medically necessary to restore and maximize function, maximize safetyand facilitate discharge to home, teach and educate the patient and/or caregivers. Recommendations for mobility/activity while hospitalized: -Chair 3x/day with assist x1 and gait belt and front wheeled walker (2 hours max in chair at a time) -Walks 4-6x/day with assist x1 and gait belt and front wheeled walker - Active participation with ADLs Plan PT Plan Comments: Continue to progress functional mobility and lower extremity exercises appropriate. Assess bed mobility with adjustable bed features/no bed rail. Continue to work on sit<> stand transfers and progress ambulation beginning with use of front wheeled walker increasing distance and frequency as tolerated. Weaning from walker as appropriate. Functional Goals: PT Inpatient Goals PT Goal #1: Patient will be independent with supine<>sit transfers with bed flat/no bed rail to progress towards functional independence. PT Goal #1 Status: Ongoing PT Goal #2: Patient will be independent/modified independent utilizing most appropriate gait devicewith sit<>stand transfers to progress towards functional independence. PT Goal #2 Status: Progressing PT Goal #3: Patient will be independent/modified independent utilizing most appropriate gait deviceambulating a distance of 60 m to progress towards functional independence. PT Goal #3 Status: Progressing Progress: Progressing toward goals Michael Dwyer has Good rehab potential to meet the expected outcomes in a reasonable period of time. Treatment Plan: Plan: Plan of care initiated PT Amount: 1 visit per day PT Frequency: 5 times per week PT Inpatient Duration : Until goals are met or hospital discharge Requires Inpatient Follow-Up: Yes PT - Next Inpatient Appointment: 09/09/24 Patient agrees with the plan of care and goals. Treatment interventions may include: Treatment/Interventions: Therapeutic exercise, Therapeutic functional activity, Self-care/home management, Neuromuscular re-education, Gait training Billing: Tiered PT Evaluation Codes: Comorbid Conditions: Obesity, Cancer, Renal disease, Cardiopulmonary disease Personal Factors: Age, Needs assistive device Examination elements: 4+ Clinical Presentation: Evolving Clinical Decision Making: Moderate complexity clinical decision making Time Spent with Patient Evaluations PT Eval - Mod Complexity: 15 min Therapeutic Interventions Therapeutic Activity (min): 26 min Time Tracking Total Timed Units (min): 26 min Total Treatment Time (min): 41 min Andre Peralta P.T., TierneyPRoberta, [facility] [1] Past Medical History: Diagnosis Date Apnea Sleep Obstructive Uses CPAP Benign Prostatic Hyperplasia With Lower Urinary Tract Symptom 07/25/2009 LW Modifier: s/p TURP ; BPH Age Related Prostate Ca Risk w Obst BenignProstatic Hyperplasia Localized 2012 Blood Transfusion No Diagnosis 2011 2-3 units Cataract 2015 Chronic Kidney Disease NOS Stage 4 Coronary Artery Disease NOS 2006 2 stents placed Defect Coagulation (HCC) 2011 Hernia Hyperlipidemia 2003 Hypertension NOS 2002 Malignant Neoplasm Of Bladder (HCC) 2007 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 OR EYE SURGERY Bilateral cataract surgery IR IVC FILTER PLACEMENT 2011 removed within 6 months of placement MOHS EXCISION OF LESION Right 12/09/2016 >Mohs micrographic surgery with guided closure (right popliteal fossa). PROSTATE SURGERY 2011 W/ bladder surgery RADICAL CYSTECTOMY N/A 05/29/2011 Radical cystectomy. Bilateral pelvic lymph node dissection. Creation of ileal conduit. THYROIDECTOMY - LOBECTOMY Left 10/13/2022 Procedure: THYROIDECTOMY - LOBECTOMY.; Surgeon: Tam Stoddard M.D.; Location: [facility] OR TONSILLECTOMY 1948 TRANSURETHRAL RESECTION OF BLADDER TUMOR N/A 05/01/2011 >Transurethral resection of multiple bladder tumors. URETEROSCOPY Left 10/07/2019 Procedure: ANTEGRADE URETEROSCOPY WITH BIOPSIES; Surgeon: Jayson Ron M.D.; Location: [facility] OR VITRECTOMY Left 2012 detached retina * Issac Craven M.D. - 09/08/2024 12:21 PM CDT I saw the patient with the medical student. I was present for or re-performed the History of Present Illness. I saw and evaluated the patient, participating in the ventura portions of the service and didmedical decision making. I have reviewed the above documentation and agree or amended. Issac Craven M.D. 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 Beginning on 09/03/2024, he has developed subacute onset, progressive diplopia, facial weakness, and proximal predominant limb weakness. Due to concerns for ICI associated adverse event, he was directly transferred and admitted to the cardiology service at our hospital. On my examination, He has proptosis of the right eye and ptosis on the left. He has moderate weakness involving the bilateral frontalis, orbicularis oculi, and orbicularis william muscles. Extraocular movements are intactin all directions without pain. There is no tongue weakness that I can appreciate. He has-1 neck flexion weakness, -2 neck extension weakness. He has -2 deltoid weakness bilaterally and-3 iliopsoas weakness bilaterally. The remainder of confrontational motor examination shows mild weakness in proximal predominant muscles with sparing of distal muscles bilaterally. Tone and reflexes are reduced. No overt sensory abnormalities. EMG/NCS earlier today showed evidence of proximal predominant myopathic changes with fibrillation potentials in the deltoid and infraspinatus. There was no evidence of a neuromuscular junction disorder on electrophysiologic testing. Laboratory studies have been notable for dynamic troponinemia and elevated creatine kinase, both improving since initiation of steroids (he has now received 2 doses of IV methylprednisolone 1 g). ASSESSMENT/PLAN The patient's clinical presentation is consistent with immune checkpoint inhibitor associated myositis (with diffuse involvement of oculo bulbar and limb musculature) and likely myocarditis. There isno evidence of a neuromuscular junction disorder, such as myasthenia, either clinically or electroph ysiologically. Moving forward, we would recommend: 1. Continuation of IV methylprednisolone 1 g daily x5 days total. 2. Initiation of IVIG 0.4 g/kg daily x5 days (for a total dose of 2 g/kg over that time course) 3. Agree with cardiac MRI 4. Continue trending creatine kinase and troponins. 5. Appreciate the multidisciplinary involvement of our colleagues in Cardiology and Oncology. 6. Initial respiratory mechanics have been reassuring. Assuming these remain stable through the day today, it would be reasonable to deescalate frequency to once daily and taper off respiratory monitoring thereafter. 7. Ongoing close clinical observation 8. Aggressive rehabilitation and involvement of our colleagues in PM&R, PT, OT, and speech and language pathology. We will continue to follow along with you. * Carina Vasquez - 09/08/2024 7:23 AM CDTAssociated Order(s): IP CONSULT TO NEUROLOGY NEUROLOGY CONSULT NOTE SUBJECTIVE Reason for Consult: Concern for myasthenia gravis, myositis management, concern for ICI toxicity. Primary Team: RST CARD 5 Neurology Supervising Student Nurse: Dr. Issac Craven History of the Present Illness Mr. 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 The patient has a past medical history of bladder cancer (status post resection, urostomy, and chemotherapy; 2011), papillary thyroid carcinoma (status post left thyroid lobectomy and isthmusectomy, 2022), CAD (x2 RHONDA, 2005), CKD, HT, HLD, RUTHY, gout, and postoperative DVT and PE. He was first diagnosed with urothelial cancer in 2011 and underwent radical cystoprostatectomy withileal conduit formation and received adjuvant chemotherapy (Cisplatin and Gemcitabine). This year, his disease recurred, and he received the first infusion of Pembrolizumab and Enfortumab on 08/05/24.After the first dose, he had a rash on bilateral arms lasting approximately 3 days, and fatigue, but they did not persist. His 2nd cycle was on 08/29/24 and his symptoms progressively worsened after the second dose to the point where he could not stand up. He experienced left eyelid droop with double vision and neck muscle weakness with struggling to keep the head straight on 09/03/24. On 09/06/24, after presenting to his local infusion center for the planned infusion with severe weakness and shortness of breath, he was directed to the local ED. On admission to ED, his CK was 3687 U/L, Troponin I was 0.24 ng/mL. 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 On admission to our hospital for further workup and management, his CK was 1259 U/L, Troponin T was 543 ng/L, and AST and ALT were 155 and 92 U/L, respectively. We are consulted due to concerns for myasthenia gravis in the context of ICI toxicity and myositis management. Review of Systems ROS as stated in the HPI, all other systems were reviewed and are negative. Medications, allergies, past medical, surgical, social, and family history were reviewed in the chart and updated as appropriate. I have reviewed the current medication list. OBJECTIVE Temperature: [36.4 ??C-36.8 ??C] 36.4 ??C Heart Rate: [34-72] 42 Resp Rate: [11-29] 16 Blood Pressure: (136-186)/(64-78) 136/78 SpO2: [89 %-100 %] 94 % Pulse Rate: [28-63] 39 Physical Examination Constitutional: Well-nourished, in no acute distress, stating he is doing better compared to previous days. Lungs: On room air, does not define any shortness of breath. Skin: Grossly intact with lesions on bilateral legs attributed to previous whyte. Cardiovascular: Pre-tibial pitting edema. Neurological Exam: His neurological exam is notable for upper and lower extremity weakness more pronounced proximally, and left-sided ptosis as well as right-sided proptosis. His weakness is pronounced on deltoids, hip flexors and extensors. We do not think that his fatigability is not out of proportion to his muscle weakness in the context of myositis. On strength examination, his left side is mildly weaker than the right side, which is long-standing according to the patient. His neck extension and flexion strength is decreased. He is not describing any shortness of breath. Mental status: Alert and oriented to time, place, person, and situation. Euthymic affect with appropriate range. Speech is clear without evidence of aphasia or dysarthria. Comprehension was intact with simple and multi-step commands. Logical and goal-directed thought process. Normal thought content. Cranial nerves: PERRL, EOMI with a left-sided ptosis and right-sided proptosis, facial movements full and symmetric, hearing intact to voice, equal elevation of the soft palate, shoulder shrug is appropriate in strength, tongue protrudes to midline. Motor: No abnormal movements appreciated. Tone is normal in bilateral upper and lower extremities. No muscle atrophy or fasciculations. Strength* (R,L): neck flexion (-1), neck extension (-2), deltoids (-2.5,-2.5), biceps (-1,-1), triceps (-1,-1), wrist extensors (0,0), finger extensors (0,0), iliopsoas (-2,-2.5), knee flexors (0,trace weakness), knee extensors (0,trace), ankle dorsiflexors (0,0), ankle plantarflexors (0,0). Sensory: Decreased proprioception in bilateral lower extremities. Reflexes (R,L)^: biceps (0,0), triceps (0,0), brachioradialis (0,0), patellar (0,0), Achilles (0,0). Plantar responses are flexor bilaterally. Coordination: [id number]-[id number] is normal bilaterally. With the proximal lower extremity weakness and the limitation of the movements, [id number] could not be performed. *Gradin = normal, -1 = 25% reduced, -2 = 50% reduced, -3 = 75% reduced, - 3.25 = movement against gravity, -3.5 movement but not antigravity, -3.75 = flicker of movement, -4 = complete paralysis ^Grading: -4 = absent, -3 = 75% reduced, -2 = 50% reduced, -1 = 25% reduced, 0 = normal, +1 = 25% increased, +2 = 50% increased, +3 = 75% increased with unsustained clonus, +4 = markedly increased with sustained clonus. Diagnostics I have reviewed the labs and diagnostics from admission. Labs 09/08/24 01.48 CK: 824 U/L Troponin T: 496 ng/L Hemoglobin: 11.4 g/dL Leukocytes: 15.5 x10(9)/L EMG 09/07/28: Standard nerve conduction studies revealed an absent fibular motor response at the EDB with a low amplitude fibular motor response at the TA with a normal distal latency and conduction velocity. The ulnar motor response had a mildly slowed conduction velocity. The sural sensory response is absent and the median sensory response is mildly low amplitude with a mildly prolonged distal latency and a mildly slowed conduction velocity. Ulnar F wave is within F estimate. The facial and spinal accessory amplitudes are low. 2 Hz repetitive stimulation at the ulnar, spinal accessory and facial nerves did not show decrement or increment. Needle examination revealed rapid recruitment of short duration, complex motor unit potentials mostnotably at proximal muscles with fibrillation potentials noted at the infraspinatus and a few fibrillation potentials at the deltoid. Clinical Interpretation: Abnormal study. 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 There is no current convincing evidence of a disorder of neuromuscular transmission. 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 TTE 09/07/24 (outside): Normal left ventricular size, wall thickness, global systolic function. Calculated EF: 61% Normal right ventricular cavity size and global systolic function Sclerotic aortic valve, no stenosis and mild regurgitation The inferior vena cava is dilated, respiratory size variation greater than 50% ASSESSMENT / PLAN Mr. 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 He was first diagnosed with urothelial cancer in 2011, but this year, his disease recurred. He received the first infusion of Pembrolizumab and Enfortumab on 08/05/24, and his 2nd cycle was on 08/29/24, and he experienced progressive symptoms of fatigue, muscle weakness, shortness of breath to the point where he could not stand up. He also experienced left eyelid droop with double vision and neck muscle weakness with struggling to keep the head straight. On admission to ED, his CK was 3687 U/L, Troponin I was 0.24 ng/mL. TTE showed grossly normal biventricular function and an enlarged IVC. 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 On admission to our hospital for further workup and management, his CK was 1259 U/L, Troponin T was 543 ng/L, and AST and ALT were 155 and 92 U/L, respectively. He received IV methylprednisolone 1 gram daily for the past 2 days. ICI toxicity workup ordered, including cardiac MRI, EMG, necrotizing myopathy panel, and myasthenia gravis panel. He is continuing his home medications including allopurinol 300 mg daily, ferrous sulfate 65 mg 3 times weekly, losartan 100 mg daily, and senokot 2 tablets BID (Atenolol 25 mg daily held). Necrotizing myopathy panel and MG panel are pending. His EMG study did not raise concerns about the current evidence of a neuromuscular transmission disorder. Given his myositis without muscle fatigability on the neurological exam, as well as EMG results that are not consistent with a neuromuscular disorder, his current presentation is most likely compatible with myositis rather than myasthenia gravis. 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 Issac Craven. We appreciate the consult. Pleasepage [phone] with any questions regarding our recommendations. Eliza Vasquez Medical Student 09/08/24 Cosigned by Issac Craven M.D. at 09/08/2024 12:39 PM CDT * Shanita Velarde APRN, C.N.P., M.S.N. - 09/08/2024 7:10 AM CDTAssociated Order(s): IP CONSULT TO ONCOLOGY MEDICAL ONCOLOGY CONSULT SERVICE: CONSULT NOTE Primary Service: RST CARD 5 Local Oncologist: No care executive team leader to display [place] [facility] Oncologist(s): Casimiro Chavez M.D., Ph.D. Reason(s) for consult: Known cancer diagnosis Suspected Immune Checkpoint Inhibitor (ICI) toxicity Managing medications for ICI toxicity SUBJECTIVE HISTORY OF PRESENT ILLNESS Mr. Michael Dwyer is a 83 y.o. male with metastatic urothelial cancer who recently initiated treatment with enfortumab vedotin and pembrolizumab (received his first treatment on 08/05/2024). Patient presented to his local infusion center at [facility] on 09/06/2024 with plans to receive cycle 2 of therapy but was found to have profound muscle weakness with inability to stand without assistance and weak neck extensor muscles, ptosis, and shortness of breath. He was sent to the local emergency department for further evaluation. Lab work significant for elevated CK of 3687, troponin I of0.24 (ref range 0.01-0.04). 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 Oncology service was consulted following admission for ongoing recs for work-up and management. His oncology history is noted below. Oncology History Overview Note May 29, 2011 [...] Enfortumab vedotin-ejfv / Pembrolizumab Start Date: 08/05/2024 I have reviewed his past medical history/past surgical history/allergies/medications and updated asnecessary in the chart. OBJECTIVE Temperature: [36.4 ??C-36.8 ??C] 36.4 ??C Heart Rate: [34-72] 45 Resp Rate: [11-29] 16 Blood Pressure: (136-186)/(64-78) 136/78 SpO2: [89 %-100 %] 94 % Pulse Rate: [28-63] 39 Constitutional General: He is not in acute distress. Appearance: He is not ill-appearing. HENT Mouth/Throat: Mouth: Mucous membranes are moist. Eyes Pupils: Pupils are equal, round, and reactive to light. Comments: Proptosis of right eye, Ptosis of left eye Cardiovascular Rate and Rhythm: Regular rhythm. Bradycardia present. Pulses: Normal pulses. Heart sounds: Normal heart sounds. Pulmonary Effort: Pulmonary effort is normal. Breath sounds: Normal breath sounds. Abdominal Palpations: Abdomen is soft. Tenderness: There is no abdominal tenderness. Neurological Mental Status: He is alert and oriented to person, place, and time. Comments: Weakness in neck flexion and extension. DIAGNOSTICS: I have personally reviewed diagnostic evaluations (labs, pathology, radiology) from this hospitalization. ASSESSMENT / PLAN Mr. Michael Dwyer is a 83 y.o. 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 He reports significant improvement in overall weakness since initiation of steroids. Tolerating steroid therapy well so far. No ectopy on telemetry aside from bradycardia which patient states is his baseline. ONCOLOGY RECOMMENDATIONS: Continue cardiac telemetry Continue daily IV methylprednisolone 1gm daily Titration at the discretion of the ICI team, assessed on a daily basis. Initiate PJP prophylaxis with Bactrim and GI prophylaxis with pantoprazole Trend CK and Troponin T daily. Repeat hepatic function panel on Thursday Obtain Troponin I on Thursday, Thursday, and Thursday Q8hr respiratory mechanics: NIF Neurology consult for evaluation and management of myositis and myasthenia gravis F/U pending myasthenia gravis panel and necrotizing myopathy panel Additional lab work-up: Aldolase Myomarker 3 panel Recommended imaging/procedures EMG Cardiac MRI Oncology plan for following: Oncology Consults will continue to see this patient daily. Communication: Treatment plan reviewed with Mr. Dwyer and his family. They expressed understanding. All questions answered to their satisfaction. Staffing: This case was staffed with Dr. Frank and ICI team who are in agreement with this plan. Paging: Please page Oncology Consults Oncall with any questions at [phone] (service pager). Slim [id number], [facility] Caryl Student Nurse on Consult service Shanita Velarde APRN, C.NKiera, M.S.N. documented in this encounter Nursing Notes * Terri Arora R.N. - 09/15/2024 3:19 PM CDT Patient discharging to home with . Holter monitor on and patient his received education onit. RN went over all the dismissal paperwork with patient and his . Blood pressure (!) 115/53, pulse 71, temperature 36.6 ??C, temperature source Oral, resp. rate 21, height 188 cm, weight 124 kg, SpO2 95%. * Terri Arora R.N. - 09/15/2024 1:50 PM CDT Shift Goals: Clinical Goals for the Shift: Patient will be free of falls/injury during shift. Identify possible barriers to meeting goals/advancing plan of care: age, disease process End of Shift Summary: Goal met. Patient remained free of falls/injury during shift before discharging to home. Problem: SAFETY ADULT Goal: Maintain a safe environment Outcome: Progressing * Carrie Hutchinson R.N. - 09/15/2024 5:29 AM CDT Shift Goals: Clinical Goals for the Shift: Patient will sleep overnight, SBP will be < 180 Identify possible barriers to meeting goals/advancing plan of care: steroid use; HTN End of Shift Summary: Mr. Schultz BP has improved overnight to 161/67. He was able to sleep for a few hours until about 2:30, then was able to go back to sleep after sitting up in the chair for a few minutes. Plan for discharge [facility] pending troponin. Problem: CARDIOVASCULAR - ADULT Goal: Maintains optimal cardiac output and hemodynamic stability Outcome: Progressing * Joanne Chaudhari M.D., M.S. - 09/15/2024 2:39 AM CDT UROLOGY PLAN OF CARE 83 y.o. who is status post radical cystoprostatectomy with ileal conduit urinary diversion with on 05/29/2011. 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 Extranodal extension was identified in the lymph nodes on the left common iliac chain. Post surgery he proceeded with adjuvant chemotherapy receiving 6 cycles of gemcitabine. Seen in urology survivorship clinic on 06/24/2024 for bladder cancer recheck.Unfortunately he presented with a CT urogram that was concerning for multiple enlarged upper left retroperitoneal lymph nodes (largest measuring 2.8 x 2.5 cm). Lymph node biopsy at that time was positive for urothelial carcinoma. The patient has been recommended to follow up with medical oncology for further management of his bladder cancer I was curbsided today with concerns of blood clots coming from the patient's urostomy. On exam, thestoma is pink and budded with some mucus as expected. Urine is clear peach. Urine output is adequate (2500cc/24H). Flushing is not indicated for a ileal conduit. If urine output decreases, evaluationfor patency of the stoma can be performed. At this time, no concern for clot obstruction. Signed by: Joanne Chaudhari MD, MS Department of Urology, PGY-2 Pager [phone] 09/15/24 2:44 AM CDT * Yaz Stapleton M.S., R.N. - 09/14/2024 10:40 PM CDT Shift Goals: Clinical Goals for the Shift: Patient will remain free from falls during my shift and obtain adequate blood pressures Identify possible barriers to meeting goals/advancing plan of care: current medical regimen End of Shift Summary: pt had increasing blood pressures during my shift, service aware and hoping that the Norvasc will begin to take affect, service will address in the morning. Pt remained safe during my shift * Michael Guerrero RLilianaN. - 09/14/2024 6:07 AM CDT Problem: KNOWLEDGE DEFICIT Goal: Patient/family/caregiver demonstrates understanding of disease process, treatment plan, medications, and discharge instructions Outcome: Progressing Problem: SKIN/TISSUE INTEGRITY Goal: Skin/Tissue integrity maintained or improved Outcome: Progressing Problem: SAFETY ADULT Goal: Maintain a safe environment Outcome: Progressing Shift Goals: Clinical Goals for the Shift: Patient will remain free from falls during shift. Identify possible barriers to meeting goals/advancing plan of care: End of Shift Summary: Pt stable through shift. Pt tolerating oral high dose prednisone. Pt to DC today. Electronically signed by: Makayla Guerrero R.N. 09/14/24 6:08 AM CDT * Michael Guerrero R.N. - 09/13/2024 5:57 AM CDT Problem: KNOWLEDGE DEFICIT Goal: Patient/family/caregiver demonstrates understanding of disease process, treatment plan, medications, and discharge instructions Outcome: Progressing Problem: INFECTION - ADULT Goal: Absence of infection during hospitalization Outcome: Progressing Problem: SAFETY ADULT Goal: Maintain a safe environment Outcome: Progressing Shift Goals: Clinical Goals for the Shift: Patient will remain free from falls during shift. Identify possible barriers to meeting goals/advancing plan of care: End of Shift Summary: Pt vitally stable through night. Pt transitioning to high dose oral prednisone today. Electronically signed by: Makayla Guerrero R.N. 09/13/24 5:58 AM CDT * Slim Vang RShanice - 09/12/2024 6:20 AM CDT Shift Goals: Clinical Goals for the Shift: Patient will remain free from falls during shift. Identify possible barriers to meeting goals/advancing plan of care: None End of Shift Summary: Goal met as patient remained free from falls. Patient BPs continue to improvehowever was still slightly hypertensive with BPs in the 160s systolically. Plan for patient to continue to receive IVIG and IV steroids which will be day 5 of a 5 day course. Patients continues to gain strength each day as evidenced by increased tolerance of ambulation. Patient slept well overnight without any complications. Plan to continue good bowel regimen. Will continue to monitor daily Troponins and CK levels. Plan for patient to potentially have a TTE today. BP 154/64 (BP Location: Right arm;Upper, Patient Position: Semi-recumbent) Pulse (!) 59 Temp 36.5 ??C (Oral) Resp 13 Ht 188 cm Wt 127 kg SpO2 97% BMI 36.09 kg/m?? Problem: PAIN - ADULT Goal: PT VERBALIZES/DEMONSTRATES ADEQUATE COMFORT LEVEL OR BASELINE Outcome: Progressing Problem: KNOWLEDGE DEFICIT Goal: Patient/family/caregiver demonstrates understanding of disease process, treatment plan, medications, and discharge instructions Outcome: Progressing Problem: INFECTION - ADULT Goal: Absence of infection during hospitalization Outcome: Progressing Problem: SKIN/TISSUE INTEGRITY Goal: Skin/Tissue integrity maintained or improved Outcome: Progressing Problem: SAFETY ADULT Goal: Maintain a safe environment Outcome: Progressing Problem: Risk for Compromised Skin Integrity-Other Shovel Oiler(s) Goal: Risk for Compromised Skin Integrity-Other Shovel Oiler(s) Outcome: Progressing Problem: Risk for Compromised Skin Integrity-CPAP/BIPAP Goal: Maintain and/or improve skin integrity under and around CPAP/BIPAP. Outcome: Progressing Electronically signed by: Slim Vang R.N. 09/12/24 6:25 AM CDT * Jennifer Saxena R.N. - 09/11/2024 6:53 PM CDT Problem: SAFETY ADULT Goal: Maintain a safe environment Outcome: Progressing Problem: SAFETY ADULT - RISK FOR FALL AND OR FALL INJURY Goal: Patient remains free from fall/fall injury Outcome: Adequate for Discharge Shift Goals: Clinical Goals for the Shift: Patient will ambulate in [place] three times by the end of the shift. Identify possible barriers to meeting goals/advancing plan of care: Patient reports dyspnea on exertion. End of Shift Summary: Goal partially met. Patient ambulated in the الع[place] two times today. This was tolerated well per patient report. Day four of IVIG completed today and patient tolerated this well. Electronically signed by: Jennifer Saxena R.N. 09/11/24 6:56 PM CDT * Slim Vang R.N. - 09/11/2024 4:29 AM CDT Shift Goals: Clinical Goals for the Shift: Patient will remain free from falls overnight. Identify possible barriers to meeting goals/advancing plan of care: None End of Shift Summary: Goal met as patient remained free from falls. Patient BPs improved as the night went on however was still slightly hypertensive with BPs in the 160s systolically initially at the beginning of the shift. However throughout the shift patients BPs recovered. Plan for patient to continue to receive IVIG and IV steroids which will be day 4 of a 5 day course. Patients continues togain strength each day. Patient slept well overnight without any complications. BP 150/56 Pulse (!) 55 Temp 36.6 ??C (Oral) Resp 13 Ht 188 cm Wt 128 kg SpO2 95% BMI 36.15 kg/m?? Problem: PAIN - ADULT Goal: PT VERBALIZES/DEMONSTRATES ADEQUATE COMFORT LEVEL OR BASELINE Outcome: Progressing Problem: KNOWLEDGE DEFICIT Goal: Patient/family/caregiver demonstrates understanding of disease process, treatment plan, medications, and discharge instructions Outcome: Progressing Problem: INFECTION - ADULT Goal: Absence of infection during hospitalization Outcome: Progressing Problem: SKIN/TISSUE INTEGRITY Goal: Skin/Tissue integrity maintained or improved Outcome: Progressing Problem: SAFETY ADULT Goal: Maintain a safe environment Outcome: Progressing Problem: Risk for Compromised Skin Integrity-CPAP/BIPAP Goal: Maintain and/or improve skin integrity under and around CPAP/BIPAP. Outcome: Progressing * Jennifer Saxena R.N. - 09/10/2024 6:32 PM CDT Problem: SAFETY ADULT - RISK FOR FALL AND OR FALL INJURY Goal: Patient remains free from fall/fall injury Outcome: Progressing Problem: Risk for Compromised Skin Integrity-Howard Activity Score 3 Goal: Achieve optimal activity to maintain or improve skin integrity. Outcome: Progressing Shift Goals: Clinical Goals for the Shift: Patient will be up in chair for all meals throughout the shift. Identify possible barriers to meeting goals/advancing plan of care: Patient reports of fatigue and dyspnea on exertion. End of Shift Summary: Goal partially met. Patient ambulated to the chair for two out of three mealsthroughout the shift. Patient tolerated ambulation to the chair well per patient report. IVIG day 3completed today and patient tolerated well. Nursing noted redness around patient's groin; WOC consult ordered. Electronically signed by: Jennifer Saxena R.N. 09/10/24 6:38 PM CDT * Slim Vang R.N. - 09/10/2024 5:30 AM CDT Shift Goals: Clinical Goals for the Shift: Patient will remain free from falls during shift. Identify possible barriers to meeting goals/advancing plan of care: ICI Myositis End of Shift Summary:Goal met as patient remained free from falls. Patient was slightly Hypertensive with BPs in the 170s systolically initially at the beginning of the shift. However throughout the shift patients BPs recovered. Plan for patient to continue to receive IVIG and IV steroids for a 5 day course per Neuro/Onc recs. BP 158/68 (BP Location: Right arm;Upper, Patient Position: Lying) Pulse (!) 50 Temp 36.5 ??C (Oral) Resp 18 Ht 188 cm Wt 128 kg SpO2 93% BMI 36.15 kg/m?? Problem: PAIN - ADULT Goal: PT VERBALIZES/DEMONSTRATES ADEQUATE COMFORT LEVEL OR BASELINE Outcome: Progressing Problem: KNOWLEDGE DEFICIT Goal: Patient/family/caregiver demonstrates understanding of disease process, treatment plan, medications, and discharge instructions Outcome: Progressing Problem: INFECTION - ADULT Goal: Absence of infection during hospitalization Outcome: Progressing Problem: SKIN/TISSUE INTEGRITY Goal: Skin/Tissue integrity maintained or improved Outcome: Progressing Problem: SAFETY ADULT Goal: Maintain a safe environment Outcome: Progressing Electronically signed by: Slim Vang R.N. 09/10/24 6:49 AM CDT * Michael Guerrero R.N. - 09/09/2024 6:36 AM CDT Problem: INFECTION - ADULT Goal: Absence of infection during hospitalization Outcome: Progressing Problem: SKIN/TISSUE INTEGRITY Goal: Skin/Tissue integrity maintained or improved Outcome: Progressing Problem: SAFETY ADULT Goal: Maintain a safe environment Outcome: Progressing Shift Goals: Clinical Goals for the Shift: Patient will remain free from falls this shift. Identify possible barriers to meeting goals/advancing plan of care: End of Shift Summary: Pt stable through night, some low rates in the 30s but overall stable. Awaiting the results of ICI toxicity workup. Electronically signed by: Makayla Guerrero R.N. 09/09/24 6:38 AM CDT * Tana Franco L.R.T., LEAD ETL DEVELOPER-[facility] - 09/08/2024 2:04 PM CDT Patient is a 83 y.o. male admitted on 09/07/2024 Recent Surgery: Principal Problem: Myositis PMH:Medical History[1] Significant Events During Current Stay: Shift Summary: Attempted to see patient for 0600 mechanics, however patient unavailable both attempts during this shift. Afternoon mechanics completed. 09/08/24 1440 Respiratory Mechanics (Volumes/Pressures) Max Expiratory Pressure 60 cm H2O Max Inspiratory Pressure -60 cm H2O Vital Capacity 3.4 Liters Predicted Vital Capacity 4.17 Liters Patient Position Sitting Patient Effort Good Pain Score 0 - No pain $Respiratory Mechanics Yes Plan of Care: Ambulate as tolerated and Continue to encourage coughing and deep breathing Continue respiratory mechanics. Oxygen Therapy: $Delivery Method: Room air Non-Invasive Support: BPAP/CPAP Interface: Full face mask Patient's Own Equipment: Mask, Tubing, BPAP BPAP/CPAP Mode: Bilevel, Other (Comment) (ASV) NPPV EPAP (CPAP) Settin cm H2O Hemodynamic monitoring: Recent ABG: No results for input(s): PO2 ART, PCO2 ART, PH ART, HCO3 ART, BASE EXC ART in the last 24hours. Aixa Barrett, LEAD ETL DEVELOPER-[facility] 09/08/24 2:05 PM CDT [1] Past Medical History: Diagnosis Date Apnea Sleep Obstructive Uses CPAP Benign Prostatic Hyperplasia With Lower Urinary Tract Symptom 07/25/2009 LW Modifier: s/p TURP ; BPH Age Related Prostate Ca Risk w Obst BenignProstatic Hyperplasia Localized 2011 Blood Transfusion No Diagnosis 2011 2-3 units Cataract 2015 Chronic Kidney Disease NOS Stage 4 Coronary Artery Disease NOS 2006 2 stents placed Defect Coagulation (HCC) 2011 Hernia Hyperlipidemia 2003 Hypertension NOS 2003 Malignant Neoplasm Of Bladder (HCC) 2008 Malignant Neoplasm Of Thyroid Papillary (HCC) 09/12/2022 Nodule Thyroid 2016 Other Injury Of Unspecified Body Region 1958 foot Other Pulmonary Embolism Without Acute Cor Pulmonale (HCC) 07/14/2011 Peripheral Vascular Disease Lower extremities Polyp Colon 2012 Thromboembolism NOS 2011 left leg Urostomy Status Post ([facility]) * Lala Garay R.R.T., L.R.T. - 09/07/2024 10:10 PM CDT 09/07/24 2200 BPAP/CPAP Therapy BPAP/CPAP Interface Full face mask Patient's Own Equipment Mask;Tubing;BPAP Skin barrier Refused Ventilator Parameters Ventilator Parameters (Select Groups) BPAP/CPAP Rows BPAP/CPAP Mode Bilevel;Other (Comment) (ASV) NPPV EPAP (CPAP) Setting 11 cm H2O Pressure Support (Min) 4 cm H2O Pressure Support (Max) 11 cm H2O Humidification Heated humidifier Plan of Care: Patient is ordered for BiPap (ASV) therapy. Patient's home unit inspected, settings verified, no supplemental oxygen in line. Patient is fitted with home full face mask. Mepilex Border Flex Lite is refused. Patient will place himself onto his home ASV for sleeping. Electronically signed by: Lala Garay R.R.T., L.R.T. 09/07/24 10:11 PM CDT documented in this encounter Miscellaneous Notes * Hospital Course - Katie, Anna M, P.A.-C. - 09/07/2024 6:20 PM CDT Mr. Dwyer is a 83 y.o. male with recurrent metastatic urothelial carcinoma on pembrolizumab/Enfortumab (first dose 08/05/2024). Other medical comorbidities include previous bladder cancer s/p resectionand urostomy and chemotherapy 2011, CKD 4, hypertension, severe complex sleep apnea on ASV, papillary thyroid carcinoma s/p left thyroid lobectomy and isthmusectomy 2022, CAD s/p RHONDA x 2 to the RCA 2005, obesity, hyperlipidemia, history of gout. Urothelial cancer was first diagnosed in 2011. He underwent radical cystoprostatectomy with ileal conduit formation followed by adjuvant chemotherapy with cisplatin and gemcitabine. This year, he wasfound to have disease recurrence. He underwent his first infusion of pembrolizumab and Enfortumab on 08/05/2024. He initially felt fatigued and noticed a rash on his arms but otherwise felt well. He started cycle 2 on Thursday, 08/29 with pembrolizumab infusion. Each day following his infusion he noted new side effects including fatigue, shortness of breath, bilateral shoulder pain and lower extremity weakness, to the point where he couldn't stand up. On Thursday, 09/03 he was also noted to have left eyelid droop with double vision, which he described as similar to dry eyes, and neck extensorweakness. Symptoms were managed conservatively with artificial tears and heat packs. Yesterday, he presented to his local infusion center for planned Enfortumab infusion and was found to be severely weak and short of breath. He was directed to the local emergency department for further evaluation. Labs were notable for elevated CK of 3687, troponin I of 0.24 (ref range 0.01-0.04), and mildly elevated BNP 921 (normal for age and renal function). TTE demonstrated grossly normal biventricular function and an enlarged IVC. 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 Recommend initiation of IV Solu-Medrol and additional workup including necrotizing myopathy panel, myasthenia gravis panel, cardiac MRI, and EMG. Local facility did not have capability for cardiac MRI. [facility] was contacted and he was accepted for transfer to [facility]. On arrival to the PCU, Mr. Dwyer was hemodynamically stable and reported feeling significantly better following IV steroids. Repeat CK downtrended. Troponin T was noted to uptrend although clinically he appeared better. 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 He required intermittent doses of IV lasix forgentle diuresis and augmentation to blood pressure control. He was discharged with PRN lasix and instructed for weight based dosing. Discharge weight was 35 kg. 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 They recommendedhigh dose IV methylprednisolone. Neurology was also consulted . EMG was not suggestive of a neuromuscular disorder and more consistent with myositis. Myasthenia gravis labs and necrotizing myopathy labs were normal. He was treated with a 5 day course of IVIG which he tolerated well. Steroids were transitioned to oral prednisone on 09/12/2024. Troponins fluctuated mildly however he did not have any concerning arrhythmias on telemetry and remained stable from a cardiac perspective. Ongoing taper plan to be guided by the [facility] team. He is scheduled to see them on 09/16/24 with repeat labs which will guide further steroid dosing. Follow up has also been arranged with his primary oncologist, cardio-oncology, and neurology. He was discharged home in stable condition on 09/15/24. documented in this encounter Plan of Treatment Upcoming Encounters Date Type Department Care Team (Late st Contact Info) Description 09/16/2024 7:10 AM CDT Appointment Department of Laboratory Medicine and Pathology, [facility] in [place], [place] [address] [place] [address] Tanya Herrmann P.A.-C. [address] [place] [phone] 09/16/2024 9:00 AM CDT Office Visit Department of Oncology in [place], [place] [address] [place] [address] Tanya Herrmann P.A.-C. [address] [place] [phone] 09/22/2024 8:40 AM CDT Appointment Department of Laboratory Medicine and Pathology, [facility] in [place], [place] [address] [place] [phone] Tanya Herrmann P.A.-C. [address] [place] [phone] 09/22/2024 10:40 AM CDT Office Visit Department of Oncology in [place], [place] [address] [place] [phone] Holley Monsalve APRN, C.N.P. [address] [place] [phone] 09/22/2024 11:20 AM CDT Office Visit Department of Oncology in [place], [place] [address] [place] [phone] Izabella Garza M.D. [address] [place] [phone] 09/22/2024 1:00 PM CDT Comprehensive Visit Department of Cardiovascular Medicine in [address] [phone] Tanya Dang APRN, C.N.P., D.N.P. [address] [place] [phone] 10/10/2024 2:30 PM CDT Clinical Communication Virtual Review in [place], [place] 200 [place] [address] 10/11/2024 8:10 AM CDT Appointment Department of Laboratory Medicine and Pathology, [facility], in [place], [place] [address] [place] [phone] Soha Huggins P.A.-C. [address] [place] [phone] 10/11/2024 9:00 AM CDT Appointment Department of Radiology, [facility], in [place], [place] [address] [place] [address] Soha Huggins P.A.-C. [address] [place] [phone] 10/11/2024 3:40 PM CDT Office Visit Department of Oncology in [place], [place] [address] [place] [phone] Casimiro Chavez M.D., Ph.D. [address] [place] [phone] 11/22/2024 1:00 PM CDT Comprehensive Visit Department of Neurology in [place], [place] [address] [place] [phone] Sandy Nicholson M.D., Ph.D. 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 Or Unspecified Chronic Kidney Disease Personal History Of Malignant Neoplasm Of Bladder 09/15/2024 2:01 PM CDT Scheduled Orders Name Type Priority Associated Diagnoses Order Schedule MyoMarker 3 Profile - Sent Out Lab Lab Timed Once at specifie d time for 1 Occurrences starting 09/08/2024 until 09/08/2024 Troponin T, 5th Generation Lab Routine Myositis Malignant Neoplasm Of Bladder (HCC) 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 Or Unspecified Chronic Kidney Disease Expected: 09/16/2024, Expires: 12/14/2025 Troponin I, High Sensitivity Lab Routine Myositis Malignant Neoplasm Of Bladder (HCC) 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 Or Unspecified Chronic Kidney Disease Expected: 09/16/2024, Expires: 12/14/2025 CK (Creatine Kinase) Lab Routine Myositis Malignant Neoplasm Of Bladder (HCC) 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 Or Unspecified Chronic Kidney Disease Expected: 09/16/2024, Expires: 12/14/2025 Troponin T, 5th Generation Lab Routine Myositis [M60.9] Malignant Neoplasm Of Bladder (HCC) 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 Or Unspecified Chronic Kidney Disease Expected: 09/22/2024, Expires: 12/14/2025 Troponin I, High Sensitivity Lab Routine Myositis [M60.9] Malignant Neoplasm Of Bladder (HCC) 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 Or Unspecified Chronic Kidney Disease Expected: 09/22/2024, Expires: 12/14/2025 NT-Pro B-Type Natriuretic Peptide (BNP) Lab Routine Myositis [M60.9] Malignant Neoplasm Of Bladder (HCC) 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 Or Unspecified Chronic Kidney Disease Expected: 09/22/2024, Expires: 12/14/2025 CK (Creatine Kinase) Lab Routine Myositis [M60.9] Malignant Neoplasm Of Bladder (HCC) 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 Or Unspecified Chronic Kidney Disease Expected: 09/22/2024, Expires: 12/14/2025 IR Nephrostomy Tube Placement Left Imaging RAD - Routine (most inpatients and all outpatients) Personal History Of Malignant Neoplasm Of Bladder Expected: 09/26/2024, Expires: 12/16/2025 Scheduled Referrals Name Type Priority Associated Diagnoses Order Schedule Neurology office visit (clinic) Outpatient Referral Routine Expected: 10/13/2024, Expires: 12/14/2025 Oncology office visit (clinic) Outpatient Referral Routine Expected: 09/13/2024, Expires: 12/14/2025 Urology office visit (clinic) Outpatient Referral Routine Expected: 09/22/2024, Expires: 12/16/2025 Interventional Radiology - General consult (clinic) Outpatient Referral Routine Personal History Of Malignant Neoplasm Of Bladder Expected: 09/15/2024, Expires: 12/16/2025 Urology - Education visit (clinic) Outpatient Referral Routine Personal History Of Malignant Neoplasm Of Bladder Expected: 09/15/2024, Expires: 12/16/2025 documented as of this encounter Procedures Procedure Name Priority Date/Time Associated Diagnosis Comments ECG AMBULATORY REAL TIME CARDIAC MONITORING - [facility] Routine 09/15/2024 2:01 PM CDT Myositis [M60.9] Myositis 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 Or Unspecified Chronic Kidney Disease Personal History Of Malignant Neoplasm Of Bladder TROPONIN I, HIGH SENSITIVITY, P Routine 09/15/2024 8:30 AM CDT CBC WITH DIFFERENTIAL, B Routine 09/15/2024 8:30 AM CDT TROPONIN T, 5TH GEN, P Routine 09/15/2024 8:30 AM CDT CREATINE KINASE (CK), S Routine 09/15/2024 8:30 AM CDT BASIC METABOLIC PANEL, S/P Routine 09/15/2024 8:30 AM CDT ADULT OXYGEN THERAPY Routine 09/14/2024 8:00 AM CDT TROPONIN I, HIGH SENSITIVITY, P Routine 09/14/2024 7:04 AM CDT CBC WITH DIFFERENTIAL, B Routine 09/14/2024 7:04 AM CDT TROPONIN T, 5TH GEN, P Routine 09/14/2024 7:04 AM CDT CREATINE KINASE (CK), S Routine 09/14/2024 7:04 AM CDT BASIC METABOLIC PANEL, S/P Routine 09/14/2024 7:04 AM CDT ADULT OXYGEN THERAPY Routine 09/13/2024 8:00 PM CDT ADULT OXYGEN THERAPY Routine 09/13/2024 8:00 AM CDT CBC WITH DIFFERENTIAL, B Routine 09/13/2024 7:28 AM CDT TROPONIN T, 5TH GEN, P Routine 09/13/2024 7:28 AM CDT CREATINE KINASE (CK), S Routine 09/13/2024 7:28 AM CDT BASIC METABOLIC PANEL, S/P Routine 09/13/2024 7:28 AM CDT ADULT OXYGEN THERAPY Routine 09/12/2024 8:00 AM CDT TROPONIN I, HIGH SENSITIVITY, P Routine 09/12/2024 7:52 AM CDT CBC WITH DIFFERENTIAL, B Routine 09/12/2024 7:52 AM CDT TROPONIN T, 5TH GEN, P Routine 09/12/2024 7:52 AM CDT CREATINE KINASE (CK), S Routine 09/12/2024 7:52 AM CDT BASIC METABOLIC PANEL, S/P Routine 09/12/2024 7:52 AM CDT URIC ACID, S/P Routine 09/12/2024 7:46 AM CDT ADULT OXYGEN THERAPY Routine 09/11/2024 8:00 PM CDT TROPONIN T, 5TH GEN, P Routine 09/11/2024 8:13 AM CDT CBC WITH DIFFERENTIAL, B Routine 09/11/2024 8:12 AM CDT CREATINE KINASE (CK), S Routine 09/11/2024 8:12 AM CDT BASIC METABOLIC PANEL, S/P Routine 09/11/2024 8:12 AM CDT ADULT OXYGEN THERAPY Routine 09/11/2024 8:00 AM CDT RESPIRATORY MECHANICS Routine 09/11/2024 8:00 AM CDT ADULT OXYGEN THERAPY Routine 09/10/2024 8:00 PM CDT ECG STAT 09/10/2024 7:44 PM CDT ADULT OXYGEN THERAPY Routine 09/10/2024 8:00 AM CDT RESPIRATORY MECHANICS Routine 09/10/2024 8:00 AM CDT CBC WITH DIFFERENTIAL, B Routine 09/10/2024 7:44 AM CDT TROPONIN T, 5TH GEN, P Routine 09/10/2024 7:44 AM CDT CREATINE KINASE (CK), S Routine 09/10/2024 7:44 AM CDT BASIC METABOLIC PANEL, S/P Routine 09/10/2024 7:44 AM CDT ADULT OXYGEN THERAPY Routine 09/09/2024 8:01 PM CDT TROPONIN I, HIGH SENSITIVITY, P Timed 09/09/2024 12:43 PM CDT HEPATIC FUNCTION PANEL, S Routine 09/09/2024 10:19 AM CDT CBC WITHOUT DIFFERENTIAL, B Routine 09/09/2024 10:19 AM CDT TROPONIN T, 5TH GEN, P Routine 09/09/2024 10:19 AM CDT CREATINE KINASE (CK), S Routine 09/09/2024 10:19 AM CDT BASIC METABOLIC PANEL, S/P Routine 09/09/2024 10:19 AM CDT RESPIRATORY MECHANICS Routine 09/09/2024 9:04 AM CDT ADULT OXYGEN THERAPY Routine 09/09/2024 8:01 AM CDT ADULT OXYGEN THERAPY Routine 09/08/2024 8:01 PM CDT MR CARDIAC WITHOUT AND WITH IV CONTRAST RAD - Routine (most inpatients and all outpatients) 09/08/2024 2:52 PM CDT BACTERIAL CULTURE, AEROBIC + SUSC, URINE Routine 09/08/2024 12:16 PM CDT TROPONIN I, HIGH SENSITIVITY, P Timed 09/08/2024 12:12 PM CDT ALDOLASE, S Timed 09/08/2024 12:12 PM CDT CBC WITHOUT DIFFERENTIAL, B Timed 09/08/2024 12:12 PM CDT TROPONIN T, 5TH GEN, P Timed 09/08/2024 12:12 PM CDT CREATINE KINASE (CK), S Timed 09/08/2024 12:12 PM CDT BASIC METABOLIC PANEL, S/P Timed 09/08/2024 12:12 PM CDT EMG Routine 09/08/2024 8:11 AM CDT ADULT OXYGEN THERAPY Routine 09/08/2024 8:01 AM CDT RESPIRATORY MECHANICS Routine 09/08/2024 7:44 AM CDT RESPIRATORY MECHANICS Routine 09/08/2024 7:44 AM CDT RESPIRATORY MECHANICS Routine 09/08/2024 7:44 AM CDT TROPONIN T, 6H, 5TH GEN, P Timed 09/08/2024 1:48 AM CDT THYROID FUNCTION CASCADE, S Routine 09/08/2024 1:48 AM CDT CBC WITHOUT DIFFERENTIAL, B Routine 09/08/2024 1:48 AM CDT CREATINE KINASE (CK), S Routine 09/08/2024 1:48 AM CDT BASIC METABOLIC PANEL, S/P Routine 09/08/2024 1:48 AM CDT HEMOGLOBIN A1C, B Routine 09/08/2024 1:4 5 AM CDT TROPONIN T, 2H/6H REFLEX, 5TH GEN, P Timed 09/07/2024 9:42 PM CDT HC OSMOLALITY ASSAY URINE Routine 09/07/2024 9:12 PM CDT DIPSTICK, U Routine 09/07/2024 9:12 PM CDT PH, RANDOM, U Routine 09/07/2024 9:12 PM CDT MICROSCOPIC MANUAL Routine 09/07/2024 9: 12 PM CDT URINALYSIS WITH MICROSCOPIC Routine 09/07/2024 9:12 PM CDT ADULT OXYGEN THERAPY Routine 09/07/2024 8:01 PM CDT MG EVALUATION WITH MUSK REFLEX, S STAT 09/07/2024 7:31 PM CDT NECROTIZING MYOPATHY EVALUATION, S STAT 09/07/2024 7:31 PM CDT TROPONIN T, BASELINE, 5TH GEN, P STAT 09/07/2024 7:31 PM CDT MUSCLE-SPECIFIC KINASE (MUSK) AUTOAB, S STAT 09/07/2024 7:31 PM CDT CBC WITH DIFFERENTIAL, B STAT 09/07/2024 7:31 PM CDT CREATINE KINASE (CK), S STAT 09/07/2024 7:31 PM CDT COMPREHENSIVE METABOLIC PANEL, S/P STAT 09/07/2024 7:31 PM CDT ECG Timed 09/07/2024 7:25 PM CDT RESPIRATORY MECHANICS Routine 09/07/2024 7:23 PM CDT ADULT OXYGEN THERAPY Routine 09/07/2024 7:00 PM CDT ADULT OXYGEN THERAPY Routine 09/07/2024 7:00 PM CDT documented in this encounter Results * CK (Creatine Kinase) (09/15/2024 8:30 AM CDT) Creatine Kinase (CK), S 87 39 - 308 U/L 09/15/2024 10:21 AM CDT DTL Blood (Blood, Venous) 09/15/2024 8:30 AM CDT 09/15/2024 9:59 AM CDT Marga Hernandez P.A.-C., M.S. LAB BLOOD ADD-ON Fi nal Result [facility] [address] [place] [address], [facility] [address] [place] [address] * (ABNORMAL) Basic Metabolic Panel (09/15/2024 8:30 AM CDT) Potassium, S 4.3 3.6 - 5.2 mmol/L 09/15/2024 10:21 AM CDT DTL Sodium, S 143 135 - 145 mmol/L 09/15/2024 10:21 AM CDT DTL Chloride, S 108(H) 98 - 107 mmol/L 09/15/2024 10:21 AM CDT DTL Bicarbonate, S 20(L) 22 - 29 mmol/L 09/15/2024 10:21 AM CDT DTL Anion Gap 15 7 - 15 09/15/2024 10:21 AM CDT DTL BUN (Blood Urea Nitrogen), S 76(H) 8 - 24 mg/dL 09/15/2024 10:21 AM CDT DTL Creatinine 2.28(H) 0.74 - 1.35 mg/dL 09/15/2024 10:21 AM CDT DTL Estimated GFR (eGFR) 28(L) >=60 mL/min/BSA 09/15/2024 10:21 AM CDT DTL Comment: Estimated GFR calculated using the 2020 CKD_EPI creatinine equation. Calcium, Total, S 8.1(L) 8.8 - 10.2 mg/dL 09/15/2024 10:21 AM CDT DTL Glucose, S 102 70 - 140 mg/dL 09/15/2024 10:21 AM CDT DTL Blood (Blood, Venous) 09/15/2024 8:30 AM CDT 09/15/2024 9:59 AM CDT Marga Hernandez P.A.-C., M.S. LAB BLOOD ADD-ON Fi nal Result [facility] [address] [place] [address], [facility] DTL [facility] [address] [place] [address] * (ABNORMAL) CBC with Differential, Blood (09/15/2024 8:30 AM CDT) Hemoglobin 12.0(L) 13.2 - 16.6 g/dL 09/15/2024 9:40 AM CDT DTL Hematocrit 36.6(L) 38.3 - 48.6 % 09/15/2024 9:40 AM CDT DTL Erythrocytes 3.95(L) 4.35 - 5.65 x10(12)/L 09/15/2024 9:40 AM CDT DTL MCV 92.7 78.2 - 97.9 fL 09/15/2024 9:40 AM CDT DTL RBC Distrib Width 15.9(H) 11.8 - 14.5 % 09/15/2024 9:40 AM CDT DTL Platelet Count 150 135 - 317 x10(9)/L 09/15/2024 9:40 AM CDT DTL Leukocytes 19.1(H) 3.4 - 9.6 x10(9)/L 09/15/2024 9:40 AM CDT DTL Neutrophils 16.10(H) 1.56 - 6.45 x10(9)/L 09/15/2024 9:39 AM CDT [facility] Lymphocytes 1.25 0.95 - 3.07 x10(9)/L 09/15/2024 9:40 AM CDT DTL Monocytes 1.67(H) 0.26 - 0.81 x10(9)/L 09/15/2024 9:40 AM CDT DTL Eosinophils <0.03 0.03 - 0.48 x10(9)/L 09/15/2024 9:40 AM CDT DTL Basophils 0.03 0.01 - 0.08 x10(9)/L 09/15/2024 9:40 AM CDT DTL Blood (Blood, Venous) 09/15/2024 8:30 AM CDT 09/15/2024 9:11 AM CDT Juan Carlos Nelson APRNNKiera, M.S.N. LAB BLOOD A DD-ON Final Result Performing Organization Address City/[facility]/ZIP Co de Phone Number [facility] [address] [place] [address], [facility] DTL [facility] [address] [place], [place] [id number] [place] [address] 200 [place] [address] * (ABNORMAL) Troponin T, 5th Generation (09/15/2024 8:30 AM CDT) Troponin T, 5th gen 440(H) <=15 ng/L 09/15/2024 8:53 AM CDT [facility] Comment:Consider acute myoca rdial injury Blood (Blood, Venous) 09/15/2024 8:30 AM CDT 09/15/2024 8:37 AM CDT Juan Carlos Nelson APRNNChase., M.S.N. LAB BLOOD A DD-ON Final Result [facility] [address] [place] [address], [facility] STMA [facility] [address] [place] [address] * (ABNORMAL) Troponin I, High Sensitivity (09/15/2024 8:30 AM CDT) TROPONIN I, HIGH SENSITIVITY, P 71(H) <=20 ng/L 09/15/2024 1:40 PM CDT DTL Blood (Blood, Venous) 09/15/2024 8:30 AM CDT 09/15/2024 9:58 AM CDT Anna Wilson P.A.-C. LAB BLOOD NON ADD-ON Final Result Performing Organization Address [facility]/ZIP Co de Phone Number [facility] [address] [place] [address] * CK (Creatine Kinase) (09/14/2024 7:04 AM CDT) Creatine Kinase (CK), S 73 39 - 308 U/L 09/14/2024 8:41 AM CDT DTL Blood (Blood, Venous) 09/14/2024 7:04 AM CDT 09/14/2024 8:19 AM CDT Marga Hernandez P.A.-C., M.S. LAB BLOOD ADD-ON Fi nal Result Performing Organization Address [facility] Co de Phone Number [facility] [address] [place] [address] * (ABNORMAL) Basic Metabolic Panel (09/14/2024 7:04 AM CDT) Potassium, S 4.0 3.6 - 5.2 mmol/L 09/14/2024 8:41 AM CDT DTL Sodium, S 143 135 - 145 mmol/L 09/14/2024 8:41 AM CDT DTL Chloride, S 108(H) 98 - 107 mmol/L 09/14/2024 8:41 AM CDT DTL Bicarbonate, S 22 22 - 29 mmol/L 09/14/2024 8:41 AM CDT DTL Anion Gap 13 7 - 15 09/14/2024 8:41 AM CDT DTL BUN (Blood Urea Nitrogen), S 69(H) 8 - 24 mg/dL 09/14/2024 8:41 AM CDT DTL Creatinine 2.02(H) 0.74 - 1.35 mg/dL 09/14/2024 8:41 AM CDT DTL Estimated GFR (eGFR) 32(L) >=60 mL/min/BSA 09/14/2024 8:41 AM CDT DTL Comment: Estimated GFR calculated using the 2020 CKD_EPI creatinine equation. Calcium, Total, S 8.1(L) 8.8 - 10.2 mg/dL 09/14/2024 8:41 AM CDT DTL Glucose, S 99 70 - 140 mg/dL 09/14/2024 8:41 AM CDT DTL Blood (Blood, Venous) 09/14/2024 7:04 AM CDT 09/14/2024 8:19 AM CDT Marga Hernandez P.A.-C., M.S. LAB BLOOD [place] [id number], [facility] [place] [address] * (ABNORMAL) CBC with Differential, Blood (09/14/2024 7:04 AM CDT) Hemoglobin 12.4(L) 13.2 - 16.6 g/dL 09/14/2024 7:49 AM CDT DTL Hematocrit 37.4(L) 38.3 - 48.6 % 09/14/2024 7:49 AM CDT DTL Erythrocytes 4.08(L) 4.35 - 5.65 x10(12)/L 09/14/2024 7:49 AM CDT DTL MCV 91.7 78.2 - 97.9 fL 09/14/2024 7:49 AM CDT DTL RBC Distrib Width 15.3(H) 11.8 - 14.5 % 09/14/2024 7:49 AM CDT DTL Platelet Count 118(L) 135 - 317 x10(9)/L 09/14/2024 7:49 AM CDT DTL Leukocytes 13.4(H) 3.4 - 9.6 x10(9)/L 09/14/2024 7:49 AM CDT DTL Neutrophils 11.10(H) 1.56 - 6.45 x10(9)/L 09/14/2024 7:49 AM CDT [facility] Lymphocytes 0.90(L) 0.95 - 3.07 x10(9)/L 09/14/2024 7:49 AM CDT DTL Monocytes 1.35(H) 0.26 - 0.81 x10(9)/L 09/14/2024 7:49 AM CDT DTL Eosinophils <0.03 0.03 - 0.48 x10(9)/L 09/14/2024 7:49 AM CDT DTL Basophils <0.03 0.01 - 0.08 x10(9)/L 09/14/2024 7:49 AM CDT DTL Blood (Blood, Venous) 09/14/2024 7:04 AM CDT 09/14/2024 7:34 AM CDT Juan Carlos Nelson APRNNChase., M.S.N. LAB BLOOD A DD-ON Final Result [facility] [address] [place] [address], [facility] DTL [facility] [address] [place] [address] DHPM [facility] [address] [place] [address] * (ABNORMAL) Troponin T, 5th Generation (09/14/2024 7:04 AM CDT) Troponin T, 5th gen 377(H) <=15 ng/L 09/14/2024 7:49 AM CDT [facility] Comment:Consider acute myoca rdial injury Blood (Blood, Venous) 09/14/2024 7:04 AM CDT 09/14/2024 7:19 AM CDT Mendy Nelson APRN.N.P., M.S.N. LAB BLOOD A DD-ON Final Result Performing Organization Address [facility] Co de Phone Number [facility] [address] [place] [address] * (ABNORMAL) Troponin I, High Sensitivity (09/14/2024 7:04 AM CDT) [facility] TROPONIN I, HIGH SENSITIVITY, P 70(H) <=20 ng/L 09/14/2024 12:15 PM CDT DTL Blood (Blood, Venous) 09/14/2024 7:04 AM CDT 09/14/2024 7:48 AM CDT Marga Hernandez P.A.-C., M.S. LAB BLOOD NON ADD-O N Final Result Performing Organization Address [facility] Co de Phone Number [facility] [address] DTL [facility] [address] [place] [address] * (ABNORMAL) CBC with Differential, Blood (09/13/2024 7:28 AM CDT) [facility] Hemoglobin 12.1(L) 13.2 - 16.6 g/dL 09/13/2024 8:43 AM CDT DTL Hematocrit 36.6(L) 38.3 - 48.6 % 09/13/2024 8:43 AM CDT DTL Erythrocytes 4.00(L) 4.35 - 5.65 x10(12)/L 09/13/2024 8:43 AM CDT DTL MCV 91.5 78.2 - 97.9 fL 09/13/2024 8:43 AM CDT DTL RBC Distrib Width 15.3(H) 11.8 - 14.5 % 09/13/2024 8:43 AM CDT DTL Platelet Count 122(L) 135 - 317 x10(9)/L 09/13/2024 9:15 AM CDT DTL Leukocytes 11.8(H) 3.4 - 9.6 x10(9)/L 09/13/2024 9:15 AM CDT DTL Neutrophils 9.85(H) 1.56 - 6.45 x10(9)/L 09/13/2024 8:43 AM CDT DHPM Lymphocytes 0.68(L) 0.95 - 3.07 x10(9)/L 09/13/2024 8:43 AM CDT DTL Monocytes 1.23(H) 0.26 - 0.81 x10(9)/L 09/13/2024 8:43 AM CDT DTL Eosinophils <0.03 0.03 - 0.48 x10(9)/L 09/13/2024 8:43 AM CDT DTL Basophils <0.03 0.01 - 0.08 x10(9)/L 09/13/2024 8:43 AM CDT DTL Blood (Blood, Venous) 09/13/2024 7:28 AM CDT 09/13/2024 7:58 AM CDT Juan Carlos Nelson APRNNChase., M.S.N. LAB BLOOD A DD-ON Final Result [facility] 200 [place] [address], [facility] DTL [facility] [address] [place] [address] [facility] 200 [place] [address] * (ABNORMAL) Troponin T, 5th Generation (09/13/2024 7:28 AM CDT) Troponin T, 5th gen 391(H) <=15 ng/L 09/13/2024 7:59 AM CDT [facility] Comment:Consider acute myoca rdial injury Blood (Blood, Venous) 09/13/2024 7:28 AM CDT 09/13/2024 7:44 AM CDT Mendy Nelson APRN.N.P., M.S.N. LAB BLOOD A DD-ON Final Result Performing Organization Address [facility] Co de Phone Number [facility] [address] [place] [address] * CK (Creatine Kinase) (09/13/2024 7:28 AM CDT) Creatine Kinase (CK), S 79 39 - 308 U/L 09/13/2024 8:31 AM CDT DTL Blood (Blood, Venous) 09/13/2024 7:28 AM CDT 09/13/2024 8:06 AM CDT Marga Hernandez P.A.-C., M.S. LAB BLOOD ADD-ON Fi nal Result Performing Organization Address [facility] Co de Phone Number [address] [place] [address] * (ABNORMAL) Basic Metabolic Panel (09/13/2024 7:28 AM CDT) Potassium, S 4.2 3.6 - 5.2 mmol/L 09/13/2024 8:31 AM CDT DTL Sodium, S 138 135 - 145 mmol/L 09/13/2024 8:31 AM CDT DTL Chloride, S 106 98 - 107 mmol/L 09/13/2024 8:31 AM CDT DTL Bicarbonate, S 19(L) 22 - 29 mmol/L 09/13/2024 8:31 AM CDT DTL Anion Gap 13 7 - 15 09/13/2024 8:31 AM CDT DTL BUN (Blood Urea Nitrogen), S 72(H) 8 - 24 mg/dL 09/13/2024 8:31 AM CDT DTL Creatinine 2.14(H) 0.74 - 1.35 mg/dL 09/13/2024 8:31 AM CDT DTL Estimated GFR (eGFR) 30(L) >=60 mL/min/BSA 09/13/2024 8:31 AM CDT DTL Comment: Estimated GFR calculated using the 2020 CKD_EPI creatinine equation. Calcium, Total, S 8.0(L) 8.8 - 10.2 mg/dL 09/13/2024 8:31 AM CDT DTL Glucose, S 101 70 - 140 mg/dL 09/13/2024 8:31 AM CDT DTL Blood (Blood, Venous) 09/13/2024 7:28 AM CDT 09/13/2024 8:06 AM CDT us Marga Hernandez P.A.-C., M.S. LAB BLOOD ADD-ON Fi nal Result [facility] [address] [place] [address], [facility] [address] [place] [address] * (ABNORMAL) CBC with Differential, Blood (09/12/2024 7:52 AM CDT) Pathologist [facility] Hemoglobin 12.5(L) 13.2 - 16.6 g/dL 09/12/2024 9:28 AM CDT DTL Hematocrit 37.6(L) 38.3 - 48.6 % 09/12/2024 9:28 AM CDT DTL Erythrocytes 4.12(L) 4.35 - 5.65 x10(12)/L 09/12/2024 9:28 AM CDT DTL MCV 91.3 78.2 - 97.9 fL 09/12/2024 9:28 AM CDT DTL RBC Distrib Width 15.4(H) 11.8 - 14.5 % 09/12/2024 9:28 AM CDT DTL Platelet Count 146 135 - 317 x10(9)/L 09/12/2024 9:28 AM CDT DTL Leukocytes 11.2(H) 3.4 - 9.6 x10(9)/L 09/12/2024 9:28 AM CDT DTL Neutrophils 9.46(H) 1.56 - 6.45 x10(9)/L 09/12/2024 9:28 AM CDT [facility] Lymphocytes 0.86(L) 0.95 - 3.07 x10(9)/L 09/12/2024 9:28 AM CDT DTL Monocytes 0.83(H) 0.26 - 0.81 x10(9)/L 09/12/2024 9:28 AM CDT DTL Eosinophils <0.03 0.03 - 0.48 x10(9)/L 09/12/2024 9:28 AM CDT DTL Basophils <0.03 0.01 - 0.08 x10(9)/L 09/12/2024 9:28 AM CDT DTL Blood (Blood, Venous) 09/12/2024 7:52 AM CDT 09/12/2024 8:47 AM CDT Juan Carlos Nelson APRNN.Kat., M.S.N. LAB BLOOD A DD-ON Final Result Performing Organization Address [facility]/ZIP Co de Phone Number [facility] [address] DTL [facility] [address] 200 [place] [address] * (ABNORMAL) Troponin T, 5th Generation (09/12/2024 7:52 AM CDT) Troponin T, 5th gen 415(H) <=15 ng/L 09/12/2024 8:51 AM CDT [facility] Comment:Consider acute myoca rdial injury Blood (Blood, Venous) 09/12/2024 7:52 AM CDT 09/12/2024 8:35 AM CDT Mendy Nelson APRN.N.P., M.S.N. LAB BLOOD A DD-ON Final Result Performing Organization Address City/[facility]/ZIP Co de Phone Number [facility] 200 [place] [address], [facility] STMA [facility] 200 [place] [address] * CK (Creatine Kinase) (09/12/2024 7:52 AM CDT) Creatine Kinase (CK), S 76 39 - 308 U/L 09/12/2024 9:24 AM CDT DTL Blood (Blood, Venous) 09/12/2024 7:52 AM CDT 09/12/2024 9:00 AM CDT Marga Hernandez P.A.-C. M.S. LAB BLOOD ADD-ON Fi nal Result [facility] [address] [place] [address], [facility] [address] [place] [address] * (ABNORMAL) Basic Metabolic Panel (09/12/2024 7:52 AM CDT) Potassium, S 4.5 3.6 - 5.2 mmol/L 09/12/2024 9:24 AM CDT DTL Sodium, S 136 135 - 145 mmol/L 09/12/2024 9:24 AM CDT DTL Chloride, S 106 98 - 107 mmol/L 09/12/2024 9:24 AM CDT DTL Bicarbonate, S 19(L) 22 - 29 mmol/L 09/12/2024 9:24 AM CDT DTL Anion Gap 11 7 - 15 09/12/2024 9:24 AM CDT DTL BUN (Blood Urea Nitrogen), S 69(H) 8 - 24 mg/dL 09/12/2024 9:24 AM CDT DTL Creatinine 2.06(H) 0.74 - 1.35 mg/dL 09/12/2024 9:24 AM CDT DTL Estimated GFR (eGFR) 32(L) >=60 mL/min/BSA 09/12/2024 9:24 AM CDT DTL Comment: Estimated GFR calculated using the 2020 CKD_EPI creatinine equation. Calcium, Total, S 8.3(L) 8.8 - 10.2 mg/dL 09/12/2024 9:24 AM CDT DTL Glucose, S 135 70 - 140 mg/dL 09/12/2024 9:24 AM CDT DTL Blood (Blood, Venous) 09/12/2024 7:52 AM CDT 09/12/2024 9:00 AM CDT Marga Hernandez P.A.-C., M.S. LAB BLOOD ADD-ON Fi nal Result Performing Organization Address [facility] Co de Phone Number [facility] [address] [place] [address] * (ABNORMAL) Troponin I, High Sensitivity (09/12/2024 7:52 AM CDT) TROPONIN I, HIGH SENSITIVITY, P 53(H) <=20 ng/L 09/12/2024 11:18 AM CDT DTL Blood (Blood, Venous) 09/12/2024 7:52 AM CDT 09/12/2024 8:59 AM CDT Kaitlin Cummings APRN, C.N.P., M.S.N. LAB BLOOD N ON ADD-ON Final Result Performing Organization Address [facility] de Phone Number [facility] 200 [place] [address], [facility] 200 [place] [address] * Uric Acid (09/12/2024 7:46 AM CDT) Uric Acid, S 6.8 3.7 - 8.0 mg/dL 09/12/2024 2:59 PM CDT DTL Blood (Blood, Venous) 09/12/2024 7:46 AM CDT 09/12/2024 2:03 PM CDT Marga Hernandez P.A.-C., M.S. LAB BLOOD ADD-ON Fi nal Result Performing Organization Address City/[facility] Co de Phone Number [facility] 200 [place], [place] [id number] [place] [address] DTL [facility] 200 [place] [address] * (ABNORMAL) Troponin T, 5th Generation (09/11/2024 8:13 AM CDT) [facility] Troponin T, 5th gen 497(H) <=15 ng/L 09/11/2024 8:35 AM CDT [facility] Comment:Consider acute myoca rdial injury Blood (Blood, Venous) 09/11/2024 8:13 AM CDT 09/11/2024 8:19 AM CDT us Kaitlin Cummings APRN, C.N.P., M.S.N. LAB BLOOD A DD-ON Final Result Performing Organization Address City/State/[facility] Co de Phone Number [facility] [address] [place], [place] [id number] [place] [address] STMA [facility] 200 [place] [address] * (ABNORMAL) CBC with Differential, Blood (09/11/2024 8:12 AM CDT) [facility] Hemoglobin 12.3(L) 13.2 - 16.6 g/dL 09/11/2024 8:50 AM CDT DTL Hematocrit 37.4(L) 38.3 - 48.6 % 09/11/2024 8:50 AM CDT DTL Erythrocytes 4.06(L) 4.35 - 5.65 x10(12)/L 09/11/2024 8:50 AM CDT DTL MCV 92.1 78.2 - 97.9 fL 09/11/2024 8:50 AM CDT DTL RBC Distrib Width 15.1(H) 11.8 - 14.5 % 09/11/2024 8:50 AM CDT DTL Platelet Count 159 135 - 317 x10(9)/L 09/11/2024 8:50 AM CDT DTL Leukocytes 10.2(H) 3.4 - 9.6 x10(9)/L 09/11/2024 8:50 AM CDT DTL Neutrophils 8.82(H) 1.56 - 6.45 x10(9)/L 09/11/2024 8:49 AM CDT [facility] Lymphocytes 0.84(L) 0.95 - 3.07 x10(9)/L 09/11/2024 8:50 AM CDT DTL Monocytes 0.54 0.26 - 0.81 x10(9)/L 09/11/2024 8:50 AM CDT DTL Eosinophils <0.03 0.03 - 0.48 x10(9)/L 09/11/2024 8:50 AM CDT DTL Basophils <0.03 0.01 - 0.08 x10(9)/L 09/11/2024 8:50 AM CDT DTL Blood (Blood, Venous) 09/11/2024 8:12 AM CDT 09/11/2024 8:38 AM CDT us Kaitlin Cummings APRN, C.N.P., M.S.N. LAB BLOOD A DD-ON Final Result Performing Organization Address City/[facility]/ZIP Co de Phone Number [facility] [address] [place] [address] * CK (Creatine Kinase) (09/11/2024 8:12 AM CDT) Creatine Kinase (CK), S 102 39 - 308 U/L 09/11/2024 9:18 AM CDT DTL Blood (Blood, Venous) 09/11/2024 8:12 AM CDT 09/11/2024 8:58 AM CDT Marga Hernandez P.A.-C., M.S. LAB BLOOD ADD-ON Fi nal Result Performing Organization Address City/[facility]/ZIP Co de Phone Number [facility] [address] DTL [facility] [address] [place] [address] * (ABNORMAL) Basic Metabolic Panel (09/11/2024 8:12 AM CDT) Pathologist [facility] Potassium, S 4.7 3.6 - 5.2 mmol/L 09/11/2024 9:18 AM CDT DTL Sodium, S 139 135 - 145 mmol/L 09/11/2024 9:18 AM CDT DTL Chloride, S 108(H) 98 - 107 mmol/L 09/11/2024 9:18 AM CDT DTL Bicarbonate, S 17(L) 22 - 29 mmol/L 09/11/2024 9:18 AM CDT DTL Anion Gap 14 7 - 15 09/11/2024 9:18 AM CDT DTL BUN (Blood Urea Nitrogen), S 64(H) 8 - 24 mg/dL 09/11/2024 9:18 AM CDT DTL Creatinine 2.04(H) 0.74 - 1.35 mg/dL 09/11/2024 9:18 AM CDT DTL Estimated GFR (eGFR) 32(L) >=60 mL/min/BSA 09/11/2024 9:18 AM CDT DTL Comment: Estimated GFR calculated using the 2020 CKD_EPI creatinine equation. Calcium, Total, S 8.2(L) 8.8 - 10.2 mg/dL 09/11/2024 9:18 AM CDT DTL Glucose, S 146(H) 70 - 140 mg/dL 09/11/2024 9:18 AM CDT DTL Blood (Blood, Venous) 09/11/2024 8:12 AM CDT 09/11/2024 8:58 AM CDT Marga Hernandez P.A.-C., M.S. LAB BLOOD ADD-ON Fi nal Result [facility] [address] [place] [address], [facility] DTL [facility] [address] [place] [address] * ECG 12 Lead (09/10/2024 7:44 PM CDT) Ventricular Rate ECG/Min 62 BPM MUSE [place] Interval 200 ms MUSE QRSD Interval 118 ms MUSE QT Interval 456 ms MUSE QTC Interval 462 ms MUSE P [place] 60 degrees MUSE R [place] 15 degrees MUSE T Wave [place] 66 degrees MUSE 09/10/2024 7:44 PM CDT 09/10/2024 7:58 PM CDT Impressions MUSE - 09/10/2024 7:58 PM CDT Normal sinus rhythm with 1st degree A-V block Minimal voltage criteria for LVH, may be normal variant Nonspecific ST and T wave abnormality When compared with ECG of 07-Sep-2024 19:25, No significant change was found Reviewed by MÓNICA Araiza Narrative Procedure Note Galindo Laird M.D. - 09/10/2024 IMPRESSION: Normal sinus rhythm with 1st degree A-V block Minimal voltage criteria for LVH, may be normal variant Nonspecific ST and T wave abnormality When compared with ECG of 07-Sep-2024 19:25, No significant change was found Reviewed by MÓNICA Araiza Marga Hernandez P.A.-C., M.S. ECG ORDERABLES Fin al Result MUSE NA * (ABNORMAL) CBC with Differential, Blood (09/10/2024 7:44 AM CDT) Hemoglobin 12.5(L) 13.2 - 16.6 g/dL 09/10/2024 8:30 AM CDT DTL Hematocrit 38.2(L) 38.3 - 48.6 % 09/10/2024 8:30 AM CDT DTL Erythrocytes 4.20(L) 4.35 - 5.65 x10(12)/L 09/10/2024 8:30 AM CDT DTL MCV 91.0 78.2 - 97.9 fL 09/10/2024 8:30 AM CDT DTL RBC Distrib Width 15.2(H) 11.8 - 14.5 % 09/10/2024 8:30 AM CDT DTL Platelet Count 182 135 - 317 x10(9)/L 09/10/2024 8:30 AM CDT DTL Leukocytes 11.3(H) 3.4 - 9.6 x10(9)/L 09/10/2024 8:30 AM CDT DTL Neutrophils 9.39(H) 1.56 - 6.45 x10(9)/L 09/10/2024 8:30 AM CDT [facility] Lymphocytes 1.15 0.95 - 3.07 x10(9)/L 09/10/2024 8:30 AM CDT DTL Monocytes 0.76 0.26 - 0.81 x10(9)/L 09/10/2024 8:30 AM CDT DTL Eosinophils <0.03 0.03 - 0.48 x10(9)/L 09/10/2024 8:30 AM CDT DTL Basophils <0.03 0.01 - 0.08 x10(9)/L 09/10/2024 8:30 AM CDT DTL Blood (Blood, Venous) 09/10/2024 7:44 AM CDT 09/10/2024 8:19 AM CDT us Marga Hernandez P.A.-C., M.S. LAB BLOOD ADD-ON Fi nal Result [facility] [address] [place] [address], [facility] DTL [facility] [address] [place] [address] [facility] [address] [place] [address] * CK (Creatine Kinase) (09/10/2024 7:44 AM CDT) Pathologist [facility] Creatine Kinase (CK), S 149 39 - 308 U/L 09/10/2024 9:03 AM CDT DTL Blood (Blood, Venous) 09/10/2024 7:44 AM CDT 09/10/2024 8:38 AM CDT us Marga Hernandez P.A.-C., M.S. LAB BLOOD ADD-ON Fi nal Result Performing Organization Address City/[facility]/ZIP Co de Phone Number [facility] [address] [place] [address], [facility] DTL [facility] [address] [place] [address] * (ABNORMAL) Basic Metabolic Panel (09/10/2024 7:44 AM CDT) [facility] Potassium, S 4.1 3.6 - 5.2 mmol/L 09/10/2024 9:03 AM CDT DTL Sodium, S 140 135 - 145 mmol/L 09/10/2024 9:03 AM CDT DTL Chloride, S 106 98 - 107 mmol/L 09/10/2024 9:03 AM CDT DTL Bicarbonate, S 17(L) 22 - 29 mmol/L 09/10/2024 9:03 AM CDT DTL Anion Gap 17(H) 7 - 15 09/10/2024 9:03 AM CDT DTL BUN (Blood Urea Nitrogen), S 60(H) 8 - 24 mg/dL 09/10/2024 9:03 AM CDT DTL Creatinine 1.97(H) 0.74 - 1.35 mg/dL 09/10/2024 9:03 AM CDT DTL Estimated GFR (eGFR) 33(L) >=60 mL/min/BSA 09/10/2024 9:03 AM CDT DTL Comment: Estimated GFR calculated using the 2020 CKD_EPI creatinine equation. Calcium, Total, S 8.8 8.8 - 10.2 mg/dL 09/10/2024 9:03 AM CDT DTL Glucose, S 131 70 - 140 mg/dL 09/10/2024 9:03 AM CDT DTL Blood (Blood, Venous) 09/10/2024 7:44 AM CDT 09/10/2024 8:38 AM CDT Marga Hernandez P.A.-C., M.S. LAB BLOOD ADD-ON Fi nal Result [facility] [address] [facility] 200 [place] [address] * (ABNORMAL) Troponin T, 5th Generation (09/10/2024 7:44 AM CDT) Pathologist [facility] Troponin T, 5th gen 639(H) <=15 ng/L 09/10/2024 8:18 AM CDT [facility] Comment:Consider acute myoca rdial injury Blood (Blood, Venous) 09/10/2024 7:44 AM CDT 09/10/2024 8:01 AM CDT Marga Hernandez P.A.-C., M.S. LAB BLOOD ADD-ON Fi nal Result Performing Organization Address City/[facility]/ZIP Co de Phone Number [facility] [address] [place] [address] * (ABNORMAL) Troponin I, High Sensitivity (09/09/2024 12:43 PM CDT) [facility] TROPONIN I, HIGH SENSITIVITY, P 65(H) <=20 ng/L 09/12/2024 9:27 AM CDT DT Blood (Blood, Venous) 09/09/2024 12:43 PM CDT 09/09/2024 1:15 PM CDT Juan Carlos Chow APRNNChase., M.S.N. LAB BLOOD N ON ADD-ON Final Result Performing Organization Address City/[facility]/ZIP Co de Phone Number [facility] 200 [place] [address] * (ABNORMAL) CBC without Differential (09/09/2024 10:19 AM CDT) [facility] Hemoglobin 12.8(L) 13.2 - 16.6 g/dL 09/09/2024 10:57 AM CDT DTL Hematocrit 39.2 38.3 - 48.6 % 09/09/2024 10:57 AM CDT DTL Erythrocytes 4.24(L) 4.35 - 5.65 x10(12)/L 09/09/2024 10:57 AM CDT DTL MCV 92.5 78.2 - 97.9 fL 09/09/2024 10:57 AM CDT DTL RBC Distrib Width 15.3(H) 11.8 - 14.5 % 09/09/2024 10:57 AM CDT DTL Platelet Count 237 135 - 317 x10(9)/L 09/09/2024 10:57 AM CDT DTL Leukocytes 17.6(H) 3.4 - 9.6 x10(9)/L 09/09/2024 10:57 AM CDT DTL Blood (Blood, Venous) 09/09/2024 10:19 AM CDT 09/09/2024 10:51 AM CDT Marga Hernandez P.A.-C., M.S. LAB [place]OD [place] [id number], [facility] [address] [place] [address] * (ABNORMAL) Basic Metabolic Panel (09/09/2024 10:19 AM CDT) [facility] Potassium, S 4.8 3.6 - 5.2 mmol/L 09/09/2024 11:21 AM CDT DTL Sodium, S 140 135 - 145 mmol/L 09/09/2024 11:21 AM CDT DTL Chloride, S 109(H) 98 - 107 mmol/L 09/09/2024 11:21 AM CDT DTL Bicarbonate, S 16(L) 22 - 29 mmol/L 09/09/2024 11:21 AM CDT DTL Anion Gap 15 7 - 15 09/09/2024 11:21 AM CDT DTL BUN (Blood Urea Nitrogen), S 54(H) 8 - 24 mg/dL 09/09/2024 11:21 AM CDT DTL Creatinine 1.83(H) 0.74 - 1.35 mg/dL 09/09/2024 11:21 AM CDT DTL Estimated GFR (eGFR) 36(L) >=60 mL/min/BSA 09/09/2024 11:21 AM CDT DTL Comment: Estimated GFR calculated using the 2020 CKD_EPI creatinine equation. Calcium, Total, S 9.0 8.8 - 10.2 mg/dL 09/09/2024 11:21 AM CDT DTL Glucose, S 110 70 - 140 mg/dL 09/09/2024 11:21 AM CDT DTL Blood (Blood, Venous) 09/09/2024 10:19 AM CDT 09/09/2024 10:58 AM CDT Marga Hernandez P.A.-C., M.S. LAB BLOOD ADD-ON Fi nal Result [facility] [address] [facility] [address] [place] [address] * (ABNORMAL) Hepatic Function Panel (09/09/2024 10:19 AM CDT) Bilirubin, Total, S 0.4 0.0 - 1.2 mg/dL 09/09/2024 11:21 AM CDT DTL Bilirubin, Direct, S <0.2 0.0 - 0.3 mg/dL 09/09/2024 11:21 AM CDT DTL Aspartate Aminotransferase (AST), S 70(H) 8 - 48 U/L 09/09/2024 12:17 PM CDT DTL Alanine Aminotransferase (ALT), S 87(H) 7 - 55 U/L 09/09/2024 11:21 AM CDT DTL Alkaline Phosphatase, S 88 40 - 129 U/L 09/09/2024 11:21 AM CDT DTL Albumin, S 3.6 3.5 - 5.0 g/dL 09/09/2024 11:21 AM CDT DTL Protein, Total, S 6.9 6.3 - 7.9 g/dL 09/09/2024 11:21 AM CDT DTL Blood (Blood, Venous) 09/09/2024 10:19 AM CDT 09/09/2024 10:58 AM CDT Marga Hernandez P.A.-C., M.S. LAB BLOOD ADD-ON Fi nal Result Performing Organization Address City/[facility]/ZIP Co de Phone Number [facility] [address] DTL [facility] 200 [place] [address] * (ABNORMAL) Troponin T, 5th Generation (09/09/2024 10:19 AM CDT) Troponin T, 5th gen 528(H) <=15 ng/L 09/09/2024 10:57 AM CDT [facility] Comment:Consider acute myoca rdial injury Blood (Blood, Venous) 09/09/2024 10:19 AM CDT 09/09/2024 10:31 AM CDT Marga Hernandez P.A.-C., M.S. LAB BLOOD ADD-ON Fi nal Result Performing Organization Address City/[facility] Co de Phone Number [facility] 200 [place] [address], [facility] STMA [facility] 200 [place] [address] * CK (Creatine Kinase) (09/09/2024 10:19 AM CDT) Creatine Kinase (CK), S 250 39 - 308 U/L 09/09/2024 11:21 AM CDT DTL Blood (Blood, Venous) 09/09/2024 10:19 AM CDT 09/09/2024 10:58 AM CDT Marga Hernandez P.A.-C. MLilianaSLiliana LAB BLOOD ADD-ON Fi nal Result [facility] [address] [place] [address], [place] DTL [facility] [address] [place] [address] * MR Cardiac without and with IV Contrast (09/08/2024 2:52 PM CDT) Anatomical Region Laterality Modality Cardiac, Cardiovascular RST LOS, Thoracic ARZ LOS, Cardiovascular FLA LOS N/A Magnetic Resonance Impressions 09/08/2024 3:54 PM CDT 1. Normal size left ventricle. Late gadolinium enhancement in the basal to mid inferior and inferoseptal segments; subendocardial distribution with associated regional hypokinesis but no T2 signal abnormality most consistent with chronic infarction. Preserved global systolic function. LVEF 57%. 2. Normal size and global systolic function of the right ventricle. RVEF 63%. Narrative 09/08/2024 3:54 PM CDT EXAM: MR CARDIAC WITHOUT AND WITH IV CONTRAST COMPARISON: CT chest with IV contrast 06/24/2024 FINDINGS: LEFT VENTRICLE: Normal left ventricular chamber size. Normal wall thickness. Hypokinesis of the basal to mid inferior and inferolateral segments. Global systolic function visually appears preserved. Delayed postcontrast images demonstrate subendocardial late gadolinium enhancement involving the basal to mid inferior and inferolateral segments. No associated T2 signal abnormality, no increased T2 mapping values (47 ms) suggestive of chronicity. RIGHT VENTRICLE: Normal right ventricular chamber size. Normal systolic function. ATRIA: Normal-sized left atrium. Normal-sized right atrium. PERICARDIUM: Normal pericardial thickness. No pericardial effusion. No abnormal pericardial enhancement. OTHER: Aortic regurgitation jet. Aortic leaflets thickening. ADDITIONAL FINDINGS: Elevation of the left hemidiaphragm. Bilateral renal cysts. Left hydronephrosis not well evaluated.. MEASUREMENTS: Patient weight: 129 kg Patient height: 188 cm BSA: 2.6 m2 Series 10: LEFT VENTRICLE: LV End Diastolic Volume = 196mL; Index = 76mL/m2 LV End Systolic Volume = 85mL; Index = 33mL/m2 LV Stroke Volume = 111mL; Index = 43mL/m2 LV Ejection Fraction = 57% LV End Diastolic Mass = 156g; Index = 60g/m2 Series 10 (short axis): RIGHT VENTRICLE: RV End Diastolic Volume = 165mL; Index = 63mL/m2 RV End Systolic Volume = 61mL; Index = 23mL/m2 RV Stroke Volume = 104mL; Index = 40mL/m2 RV Ejection Fraction = 63% Procedure Note Mary Salinas M.D. - 09/08/2024 EXAM: MR CARDIAC WITHOUT AND WITH IV CONTRAST COMPARISON: CT chest with IV contrast 06/24/2024 FINDINGS: LEFT VENTRICLE: Normal left ventricular chamber size. Normal wall thickness. Hypokinesisof the basal to mid inferior and inferolateral segments. Global systolicfunction visually appears preserved. Delayed postcontrast images demonstrate subendocardial late gadoliniumenhancement involving the basal to mid inferior and inferolateralsegments. No associated T2 signal abnormality, no increased T2 mappingvalues (47 ms) suggestive of chronicity. RIGHT VENTRICLE: Normal right ventricular chamber size. Normal systolic function. ATRIA: Normal-sized left atrium. Normal-sized right atrium. PERICARDIUM: Normal pericardial thickness. No pericardial effusion. No abnormalpericardial enhancement. OTHER: Aortic regurgitation jet. Aortic leaflets thickening. ADDITIONAL FINDINGS: Elevation of the left hemidiaphragm. Bilateral renal cysts. Lefthydronephrosis not well evaluated.. MEASUREMENTS: Patient weight: 129 kg Patient height: 188 cm BSA: 2.6 m2 Series 10: LEFT VENTRICLE: LV End Diastolic Volume = 196mL; Index = 76mL/m2 LV End Systolic Volume = 85mL; Index = 33mL/m2 LV Stroke Volume = 111mL; Index = 43mL/m2 LV Ejection Fraction = 57% LV End Diastolic Mass = 156g; Index = 60g/m2 Series 10 (short axis): RIGHT VENTRICLE: RV End Diastolic Volume = 165mL; Index = 63mL/m2 RV End Systolic Volume = 61mL; Index = 23mL/m2 RV Stroke Volume = 104mL; Index = 40mL/m2 RV Ejection Fraction = 63% IMPRESSION: 1. Normal size left ventricle. Late gadolinium enhancement in the basal tomid inferior and inferoseptal segments; subendocardial distribution withassociated regional hypokinesis but no T2 signal abnormality mostconsistent with chronic infarction. Preserved global systolic function. LVEF 57%. 2. Normal size and global systolic function of the right ventricle. [id number]%. Marga Hernandez P.A.-C. M.S. IMG MRI PROCEDURES Final Result * (ABNORMAL) Bacterial Culture, Aerobic + Susceptibility, Urine (09/08/2024 12:16 PM CDT) Urine Culture Multiple organisms >10,000 cfu/mL present suggesting probable contamination (A) 09/10/2024 7:55 AM CDT DTL Urine (Urine, Stoma) 09/08/2024 12:16 PM CDT 09/08/2024 1:56 PM CDT Comment:Specimen Source Site : Urine Marga Hernandez P.A.-C. M.S. LAB MICROBIOLOGY - GENERAL ORDERABLES Final Result Performing Organization Address [facility] Co de Phone Number [facility] [address] [facility] [address] [place] [address] * (ABNORMAL) Aldolase (09/08/2024 12:12 PM CDT) Pathologist [facility] [place] Aldolase, S 31.4(H) <7.7 U/L 09/08/2024 2:04 PM CDT DTL Comment: ----ADDITIONAL INFORMATION---- This test has been modified from the bevel face stoner and polisher's instructions. Its performance characteristics were determined by [facility] in a manner consistent with CLIA requirements. This test has not been cleared or approved by the U.S. Food and Drug Administration. Blood (Blood, Venous) 09/08/2024 12:12 PM CDT 09/08/2024 1:26 PM CDT Juan Carlos Chow APRNN.Kat., M.S.N. LAB BLOOD N ON ADD-ON Final Result [facility] [address] DTL [facility] 200 [place] [address] * (ABNORMAL) Troponin T, 5th Generation (09/08/2024 12:12 PM CDT) [facility] Troponin T, 5th gen 517(H) <=15 ng/L 09/08/2024 12:38 PM CDT [facility] Comment:Consider acute myoca rdial injury Blood (Blood, Venous) 09/08/2024 12:12 PM CDT 09/08/2024 12:22 PM CDT Marga Hernandez P.A.-C., M.S. LAB BLOOD ADD-ON Fi nal Result [facility] [address] 200 [place] [address] * (ABNORMAL) Basic Metabolic Panel (09/08/2024 12:12 PM CDT) [facility] Potassium, S 4.5 3.6 - 5.2 mmol/L 09/08/2024 1:09 PM CDT DTL Sodium, S 142 135 - 145 mmol/L 09/08/2024 1:09 PM CDT DTL Chloride, S 111(H) 98 - 107 mmol/L 09/08/2024 1:09 PM CDT DTL Bicarbonate, S 19(L) 22 - 29 mmol/L 09/08/2024 1:09 PM CDT DTL Anion Gap 12 7 - 15 09/08/2024 1:09 PM CDT DTL BUN (Blood Urea Nitrogen), S 44(H) 8 - 24 mg/dL 09/08/2024 1:09 PM CDT DTL Creatinine 1.72(H) 0.74 - 1.35 mg/dL 09/08/2024 1:09 PM CDT DTL Estimated GFR (eGFR) 39(L) >=60 mL/min/BSA 09/08/2024 1:09 PM CDT DTL Comment: Estimated GFR calculated using the 2020 CKD_EPI creatinine equation. Calcium, Total, S 9.2 8.8 - 10.2 mg/dL 09/08/2024 1:09 PM CDT DTL Glucose, S 129 70 - 140 mg/dL 09/08/2024 1:09 PM CDT DTL Blood (Blood, Venous) 09/08/2024 12:12 PM CDT 09/08/2024 12:46 PM CDT Marga Hernandez P.A.-C., M.S. LAB BLOOD ADD-ON Fi nal Result [facility] [address] [place] [address], [facility] [address] [place] [address] * (ABNORMAL) CBC without Differential (09/08/2024 12:12 PM CDT) Hemoglobin 12.9(L) 13.2 - 16.6 g/dL 09/08/2024 12:49 PM CDT DTL Hematocrit 39.0 38.3 - 48.6 % 09/08/2024 12:49 PM CDT DTL Erythrocytes 4.23(L) 4.35 - 5.65 x10(12)/L 09/08/2024 12:49 PM CDT DTL MCV 92.2 78.2 - 97.9 fL 09/08/2024 12:49 PM CDT DTL RBC Distrib Width 15.3(H) 11.8 - 14.5 % 09/08/2024 12:49 PM CDT DTL Platelet Count 240 135 - 317 x10(9)/L 09/08/2024 12:49 PM CDT DTL Leukocytes 20.1(H) 3.4 - 9.6 x10(9)/L 09/08/2024 12:49 PM CDT DTL Blood (Blood, Venous) 09/08/2024 12:12 PM CDT 09/08/2024 12:34 PM CDT Marga Hernandez P.A.-C., M.S. LAB BLOOD ADD-ON Fi nal Result Performing Organization Address City/[facility]/ZIP Co de Phone Number [facility] [address] [place] [address] * (ABNORMAL) CK (Creatine Kinase) (09/08/2024 12:12 PM CDT) Creatine Kinase (CK), S 587(H) 39 - 308 U/L 09/08/2024 1:09 PM CDT DTL Blood (Blood, Venous) 09/08/2024 12:12 PM CDT 09/08/2024 12:46 PM CDT Marga Hernandez P.A.-C., M.S. LAB BLOOD ADD-ON Fi nal Result Performing Organization Address [facility] Co de Phone Number [facility] [address] [place] [address] * (ABNORMAL) Troponin I, High Sensitivity (09/08/2024 12:12 PM CDT) Pathologist [facility] [place] TROPONIN I, HIGH SENSITIVITY, P 116(H) <=20 ng/L 09/09/2024 7:42 AM CDT DTL Blood (Blood, Venous) 09/08/2024 12:12 PM CDT 09/08/2024 12:47 PM CDT Marga Hernandez P.A.-C. M.S. LAB BLOOD NON ADD-O N Final Result Performing Organization Address City/[facility] Co de Phone Number [facility] [address] 200 [place] [address] * EMG (09/08/2024 8:11 AM CDT) 09/08/2024 8:00 AM CDT Narrative EMG - 09/08/2024 10:13 AM CDT Table formatting from the original result was not included. 08-Sep-2024 Electromyography Final Report Study Number: 3 EMG Student Nurse: Mague Alvarez 127 or [phone] Referred by: MARGA HERNANDEZ (127 or [phone]) Referred for: MG Referral Code: 101 RX: 101 SUMMARY: Prior to starting the procedure, the patient's identity was verified, pertinent available records were reviewed, the nature of the procedure was explained, the appropriate sites of the exam were confirmed directly with the patient, and a pre-procedure pause was performed for final verification of all of the above. Standard nerve conduction studies revealed an absent fibular motor response at the EDB with a low amplitude fibular motor response at the TA with a normal distal latency and conduction velocity. The ulnar motor response had a mildly slowed conduction velocity. The sural sensory response is absent and the median sensory response is mildly low amplitude with a mildly prolonged distal latency and a mildly slowed conduction velocity. Ulnar F wave is within F estimate. The facial and spinal accessory amplitudes are low. 2 Hz repetitive stimulation at the ulnar, spinal accessory and facial nerves did not show decrement or increment. Needle examination revealed rapid recruitment of short duration, complex motor unit potentials most notably at proximal muscles with fibrillation potentials noted at the infraspinatus and a few fibrillation potentials at the deltoid. CLINICAL INTERPRETATION: Abnormal study. 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 There is no current convincing evidence of a disorder of neuromuscular transmission. 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 Melida Alvarez (127 or [phone])/SMB NERVE CONDUCTIONS Record Rep Normal Normal Distal Normal F-Wave F-Wave Temp Nerve Type Site Stim Side Amp Amp CV CV Lat Lat Lat Est ( C) Fibular Motor EDB L NR (> 2.0) (> 41) NR (< 6.6) 28.8 Fibular Motor Tib ant L 3.2 (> 5.1) 56 (> 43) 5.9 (< 6.8) 29.0 Spinal accessory Motor Trapezius * L 1.7 3.3 22.4 Facial Motor Nasalis * L 0.6 (> 1.8) 4.8 (< 4.1) 21.1 Sural Sensory Ankle L NR (> 0.0) (> 40) NR (< 4.5) 29.2 Ulnar Motor ADM * L 8.3 (> 6.0) 47 (> 51) 3.1 (< 3.6) 32.9 32.0 32.0 Median Sensory Dig II L 7 (> 15.0) 52 (> 56) 3.8 (< 3.6) 31.0 NEEDLE EMG Ins Spont MUP Recruitment Duration Amplitude Phases Muscle Side Act Fib Fasc Normal Activ Reduced Rapid Long Short High Low % Turns First dorsal interosseous L NL 0 0 ----- + Biceps brachii L NL 0 0 ----- + + 25% ++ Deltoid L INC +/- 0 ----- + + 25% ++ Triceps brachii L NL 0 0 ----- + ++ + 25% ++ Infraspinatus L INC + 0 ----- + ++ + Tensor fasciae latae L NL 0 0 ----- Vastus medialis L NL 0 0 ----- + Tibialis anterior L NL 0 0 + + + This interpretation has been electronically signed: Mague Alvarez M.D. at 09/08/2024 10:15:23 AM CDT Procedure Note Mague Alvarez M.D. - 09/08/2024 08-Sep-2024 Electromyography Final Report Study Number: 3 EMG Student Nurse: Mague Alvarez 127 or [phone] Referred by: MARGA HERNANDEZ (127 or [phone]) Referred for: Referral Code: 101 RX: 101 SUMMARY: Prior to starting the procedure, the patient's identity wasverified, pertinent available records were reviewed, the nature of theprocedure was explained, the appropriate sites of the exam were confirmeddirectly with the patient, and a pre-procedure pause was performed forfinal verification of all of the above. Standard nerve conduction studies revealed an absent fibular motorresponse at the EDB with a low amplitude fibular motor response at the TAwith a normal distal latency and conduction velocity. The ulnar motorresponse had a mildly slowed conduction velocity. The sural sensoryresponse is absent and the median sensory response is mildly low amplitudewith a mildly prolonged distal latency and a mildly slowed conductionvelocity. Ulnar F wave is within F estimate. The facial and spinalaccessory amplitudes are low. 2 Hz repetitive stimulation at the ulnar,spinal accessory and facial nerves did not show decrement or increment. Needle examination revealed rapid recruitment of short duration, complexmotor unit potentials most notably at proximal muscles with fibrillationpotentials noted at the infraspinatus and a few fibrillation potentials atthe deltoid. CLINICAL INTERPRETATION: Abnormal study. 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 There is no current convincingevidence of a disorder of neuromuscular transmission. 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 Melida Alvarez (127 or [phone])/SMB NERVE CONDUCTIONS Record Rep Normal Normal Distal Normal F-Wave F-Wave Temp Nerve Type Site Stim Side Amp Amp CV CV Lat Lat Lat Est ( C) Fibular Motor EDB L NR (> 2.0) (> 41) NR (< 6.6) 28.8 Fibular Motor Tib ant L 3.2 (> 5.1) 56 (> 43) 5.9 (< 6.8) 29.0 Spinal accessory Motor Trapezius * L 1.7 3.3 22.4 Facial Motor Nasalis * L 0.6 (> 1.8) 4.8 (< 4.1) 21.1 Sural Sensory Ankle L NR (> 0.0) (> 40) NR (< 4.5) 29.2 Ulnar Motor ADM * L 8.3 (> 6.0) 47 (> 51) 3.1 (< 3.6) 32.9 32.0 32.0 Median Sensory Dig II L 7 (> 15.0) 52 (> 56) 3.8 (< 3.6) 31.0 NEEDLE EMG Ins Spont MUP Recruitment Duration Amplitude Phases Muscle Side Act Fib Fasc Normal Activ Reduced Rapid Long Short High Low %Turns First dorsal interosseous L NL 0 0 ----- + Biceps brachii L NL 0 0 ----- + + 25% ++ Deltoid L INC +/- 0 ----- + + 25% ++ Triceps brachii L NL 0 0 ----- + ++ + 25% ++ Infraspinatus L INC + 0 ----- + ++ + Tensor fasciae latae L NL 0 0 ----- Vastus medialis L NL 0 0 ----- + Tibialis anterior L NL 0 0 + + + This interpretation has been electronically signed: Mague Alvarez M.D. at 09/08/2024 10:15:23 AM CDT Marga Hernandez P.A.-C., M.S. NEUROLOGY ORDERABLE S Edited Result - Final Performing Organization Address City/[facility]/ZIP Co de Phone Number EMG * Thyroid Function [place] (09/08/2024 1:48 AM CDT) Pathologist [facility] [place] TSH, Sensitive 1.5 0.3 - 4.2 mIU/L 09/08/2024 9:56 AM CDT DTL Blood (Blood, Venous) 09/08/2024 1:48 AM CDT 09/08/2024 9:13 AM CDT Marga Hernandez P.A.-C., M.S. LAB BLOOD ADD-ON Fi nal Result Performing Organization Address City/[facility]/ZIP Co de Phone Number [facility] 200 [place] [address], [facility] 200 [place] [address] * (ABNORMAL) CK (Creatine Kinase) (09/08/2024 1:48 AM CDT) Pathologist [facility] [place] Creatine Kinase (CK), S 824(H) 39 - 308 U/L 09/08/2024 3:05 AM CDT DTL Blood (Blood, Venous) 09/08/2024 1:48 AM CDT 09/08/2024 2:18 AM CDT us Griselda Medina P.A.-C. LAB BLOOD ADD-ON Final Resu lt [facility] [address] [place] [address], [facility] DTL [facility] [address] [place] [address] * (ABNORMAL) Basic Metabolic Panel (09/08/2024 1:48 AM CDT) Potassium, S 4.4 3.6 - 5.2 mmol/L 09/08/2024 3:05 AM CDT DTL Sodium, S 140 135 - 145 mmol/L 09/08/2024 3:05 AM CDT DTL Chloride, S 109(H) 98 - 107 mmol/L 09/08/2024 3:05 AM CDT DTL Bicarbonate, S 18(L) 22 - 29 mmol/L 09/08/2024 3:05 AM CDT DTL Anion Gap 13 7 - 15 09/08/2024 3:05 AM CDT DTL BUN (Blood Urea Nitrogen), S 41(H) 8 - 24 mg/dL 09/08/2024 3:05 AM CDT DTL Creatinine 1.75(H) 0.74 - 1.35 mg/dL 09/08/2024 3:05 AM CDT DTL Estimated GFR (eGFR) 38(L) >=60 mL/min/BSA 09/08/2024 3:05 AM CDT DTL Comment: Estimated GFR calculated using the 2020 CKD_EPI creatinine equation. Calcium, Total, S 9.0 8.8 - 10.2 mg/dL 09/08/2024 3:05 AM CDT DTL Glucose, S 139 70 - 140 mg/dL 09/08/2024 3:05 AM CDT DTL Blood (Blood, Venous) 09/08/2024 1:48 AM CDT 09/08/2024 2:18 AM CDT us Griselda Medina P.A.-C. LAB BLOOD ADD-ON Final Resu lt [facility] 200 [place] [address], [facility] 200 [place] [address] * (ABNORMAL) CBC without Differential (09/08/2024 1:48 AM CDT) Pathologist [facility] [place] Hemoglobin 11.4(L) 13.2 - 16.6 g/dL 09/08/2024 2:12 AM CDT DTL Hematocrit 34.8(L) 38.3 - 48.6 % 09/08/2024 2:12 AM CDT DTL Erythrocytes 3.77(L) 4.35 - 5.65 x10(12)/L 09/08/2024 2:12 AM CDT DTL MCV 92.3 78.2 - 97.9 fL 09/08/2024 2:12 AM CDT DTL RBC Distrib Width 15.2(H) 11.8 - 14.5 % 09/08/2024 2:12 AM CDT DTL Platelet Count 174 135 - 317 x10(9)/L 09/08/2024 2:12 AM CDT DTL Leukocytes 15.5(H) 3.4 - 9.6 x10(9)/L 09/08/2024 2:12 AM CDT DTL Blood (Blood, Venous) 09/08/2024 1:48 AM CDT 09/08/2024 2:02 AM CDT Griselda Medina P.A.-C. LAB BLOOD ADD-ON Final Resu lt [facility] 200 [place] [address], [facility] 200 [place] [address] * (ABNORMAL) Troponin T, 6h, 5th Gen (09/08/2024 1:48 AM CDT) Pathologist [facility] [place] Troponin T, 6 hr, 5th gen 496(H) <=15 ng/L 09/08/2024 2:27 AM CDT DTL Comment:Consider acute myoca rdial injury 6H Delta CANCELED 09/08/2024 2:07 AM CDT DTL Comment:Result canceled by joey garcia. 6H Delta % -9 % 09/08/2024 2:27 AM CDT DTL 6H Delta Interp Not Changing 09/08/2024 2:27 AM CDT DTL Blood 09/08/2024 1:48 AM CDT 09/08/2024 1:55 AM CDT Marga Hernandez P.A.-C., M.S. LAB BLOOD TROPONIN Final Result Performing Organization Address City/[facility]/ZIP Co de Phone Number [facility] 200 [place] [address], [facility] 200 [place] [address] * Hemoglobin A1c (09/08/2024 1:45 AM CDT) Pathologist [facility] [place] Hemoglobin A1c, B 5.3 4.0 - 5.6 % 09/08/2024 9:14 AM CDT DTL Blood (Blood, Venous) 09/08/2024 1:45 AM CDT 09/08/2024 9:04 AM CDT Marga Hernandez P.A.-C., M.S. LAB BLOOD ADD-ON Fi nal Result [facility] 200 [place] [address], [facility] [address] [place] [address] * (ABNORMAL) Troponin T, 2 Hour with 6 Hour Reflex, 5th Gen (09/07/2024 9:42 PM CDT) Troponin T, 2 hr, 5th gen 528(H) <=15 ng/L 09/07/2024 10:09 PM CDT ST[facility] Comment:Consider acute myoca rdial injury 2H Delta % -3 % 09/07/2024 10:09 PM CDT [facility] Comment:6 hour collection pe nding. 2H Delta Interp Not Changing 09/07/2024 10:09 PM CDT [facility] Blood 09/07/2024 9:42 PM CDT 09/07/2024 9:48 PM CDT Marga Hernandez P.A.-C., M.S. LAB BLOOD TROPONIN Final Result Performing Organization Address [facility] Co de Phone Number [facility] [address] [place] [address], [facility] STMA [facility] [address] [place] [address] * (ABNORMAL) Dipstick, Urine (09/07/2024 9:12 PM CDT) Hemoglobin, QL, U Large(A) Negative 09/07/2024 10:01 PM CDT DTL Leukocyte Esterase, U Large(A) Negative 09/07/2024 10:01 PM CDT DTL Nitrite, U Negative Negative 09/07/2024 10:01 PM CDT DTL Ketone, U Negative Negative mg/dL 09/07/2024 10:01 PM CDT DTL Glucose, U Negative Negative mg/dL 09/07/2024 10:01 PM CDT DTL Urine 09/07/2024 9:12 PM CDT 09/07/2024 9:55 PM CDT Griselda Medina P.A.-C. LAB URINE ORDERABLES Final Result Performing Organization Address [facility] Co de Phone Number [facility] [address] [place] [address], [facility] [address] [place] [address] * Osmolality, Urine (09/07/2024 9:12 PM CDT) Osmolality, U 446 150 - 1150 mOsm/kg 09/07/2024 10:18 PM CDT DTL Urine 09/07/2024 9:12 PM CDT 09/07/2024 9:55 PM CDT Griselda Medina P.A.-C. LAB URINE ORDERABLES Final Result Performing Organization Address City/[facility]/ZIP Co de Phone Number [facility] [address] [place] [address], [facility] [address] [place] [address] * (ABNORMAL) Microscopic Manual (09/07/2024 9:12 PM CDT) Microscopy Abnormal 09/07/2024 10:16 PM CDT DTL RBC 51-100(A) <3 /hpf 09/07/2024 10:16 PM CDT DTL Dysmorphic RBC <25 <25 % 09/07/2024 10:16 PM CDT DTL WBC >100(A) /hpf 09/07/2024 10:16 PM CDT DTL Comment: ----REFERENCE VALUE---- <4 (Males) <11 (Females) Bacteria Present(A) 09/07/2024 10:16 PM CDT DTL Urine 09/07/2024 9:12 PM CDT 09/07/2024 9:55 PM CDT Griselda Medina P.A.-C. LAB URINE ORDERABLES Final Result Performing Organization Address City/[facility]/ZIP Co de Phone Number [facility] [address] [place] [address], [facility] [address] [place] [address] * pH, Random, Urine (09/07/2024 9:12 PM CDT) pH, Random, U 5.8 4.5 - 8.0 09/07/2024 10:18 PM CDT DTL Urine 09/07/2024 9:12 PM CDT 09/07/2024 9:55 PM CDT Griselda Medina P.A.-C. LAB URINE ORDERABLES Final Result Performing Organization Address [facility]/ZIP Co de Phone Number [facility] 200 [place], [place] [address] [place] [address] [facility] 200 [place] [address] * (ABNORMAL) Urinalysis, with Microscopic: Urine, Stoma (09/07/2024 9:12 PM CDT) Source Urine, Urine, Stoma 09/07/2024 9:55 PM CDT DTL Color, U Yellow 09/07/2024 9:55 PM CDT DTL Clarity, U Cloudy(A) 09/07/2024 9:55 PM CDT DTL Protein, U 132(H) <26 mg/dL 09/07/2024 10:35 PM CDT DTL Protein/Osmola lity 2.96(H) <0.42 ratio 09/07/2024 10:35 PM CDT DTL Predicted 24 HR Protein, U 2648(H) <229 mg/24 h 09/07/2024 10:35 PM CDT DTL Predicted Range 841-8344 mg/24 h 09/07/2024 10:35 PM CDT DTL Urine (Urine, Stoma) 09/07/2024 9:12 PM CDT 09/07/2024 9:55 PM CDT Griselda Medina P.A.-C. LAB URINE ORDERABLES Final Result Performing Organization Address City/[facility]/ZIP Co de Phone Number [facility] 200 [place] [address], [facility] 200 [place] [address] * Muscle-Specific Kinase (MuSK) Autoantibody (09/07/2024 7:31 PM CDT) MuSK Autoantibody, S 0.00 0.00 - 0.02 nmol/L 09/13/2024 8:01 PM CDT DTL Comment: ----ADDITIONAL INFORMATION---- This test was developed using an analyte specific reagent. Its performance characteristics were determined by [facility] in a manner consistent with CLIA requirements. This test has not been cleared or approved by the U.S. Food and Drug Administration. Blood 09/07/2024 7:31 PM CDT 09/08/2024 8:37 AM CDT Marga Hernandez P.A.-C. M.SLiliana LAB BLOOD ADD-ON Fi nal Result Performing Organization Address [facility] Co de Phone Number [facility] [address] [place] [address], [facility] DTL 200 [facility] 200 [place] [address] * Myasthenia Gravis Evaluation with MuSK Reflex (09/07/2024 7:31 PM CDT) Pathologist [facility] MG with MuSK Interpretation, S see below 09/14/2024 9:10 AM CDT DTL Comment: No informative autoantibodies were detected. A negative result does not exclude a diagnosis of autoimmune myasthenia gravis. Acetylcholine Binding Antibody 0.00 <=0.02 nmol/L 09/14/2024 9:10 AM CDT DTL Comment: ----ADDITIONAL INFORMATION---- This test was developed and its performance characteristics determined by [facility] in a manner consistent with CLIA requirements. This test has not been cleared or approved by the U.S. Food and Drug Administration. Blood (Blood, Venous) 09/07/2024 7:31 PM CDT 09/08/2024 8:37 AM CDT Marga Hernandez P.A.-C. M.SLiliana LAB BLOOD NON ADD-O N Final Result Performing Organization Address City/[facility]/ZIP Co de Phone Number [facility] [address] [place] [address], [facility] DTL 200 [facility] 200 [place] [address] * (ABNORMAL) CBC with Differential, Blood (09/07/2024 7:31 PM CDT) Hemoglobin 12.5(L) 13.2 - 16.6 g/dL 09/07/2024 8:23 PM CDT [facility] Hematocrit 38.2(L) 38.3 - 48.6 % 09/07/2024 8:23 PM CDT [facility] Erythrocytes 4.09(L) 4.35 - 5.65 x10(12)/L 09/07/2024 8:23 PM CDT [facility] MCV 93.4 78.2 - 97.9 fL 09/07/2024 8:23 PM CDT [facility] RBC Distrib Width 15.1(H) 11.8 - 14.5 % 09/07/2024 8:23 PM CDT [facility] Platelet Count 212 135 - 317 x10(9)/L 09/07/2024 8:23 PM CDT [facility] Leukocytes 18.4(H) 3.4 - 9.6 x10(9)/L 09/07/2024 8:23 PM CDT [facility] Neutrophils 16.85(H) 1.56 - 6.45 x10(9)/L 09/07/2024 8:23 PM CDT [facility] Lymphocytes 1.13 0.95 - 3.07 x10(9)/L 09/07/2024 8:23 PM CDT [facility] Monocytes 0.38 0.26 - 0.81 x10(9)/L 09/07/2024 8:23 PM CDT [facility] Eosinophils <0.03 0.03 - 0.48 x10(9)/L 09/07/2024 8:23 PM CDT [facility] Basophils 0.03 0.01 - 0.08 x10(9)/L 09/07/2024 8:23 PM CDT ST[facility] Blood (Blood, Venous) 09/07/2024 7:31 PM CDT 09/07/2024 8:19 PM CDT Marga Hernandez P.A.-C., M.S. LAB BLOOD ADD-ON Fi nal Result [facility] [employer] [facility] [address] [place] [address], [place] [facility] [address] [place] [address] [facility] [address] [place] [address] * (ABNORMAL) Comprehensive Metabolic Panel (09/07/2024 7:31 PM CDT) [facility] Potassium, S 4.1 3.6 - 5.2 mmol/L 09/07/2024 9:00 PM CDT DTL Sodium, S 142 135 - 145 mmol/L 09/07/2024 9:00 PM CDT DTL Chloride, S 110(H) 98 - 107 mmol/L 09/07/2024 9:00 PM CDT DTL Bicarbonate, S 17(L) 22 - 29 mmol/L 09/07/2024 9:00 PM CDT DTL Anion Gap 15 7 - 15 09/07/2024 9:00 PM CDT DTL BUN (Blood Urea Nitrogen), S 37(H) 8 - 24 mg/dL 09/07/2024 9:00 PM CDT DTL Creatinine 1.76(H) 0.74 - 1.35 mg/dL 09/07/2024 9:00 PM CDT DTL Estimated GFR (eGFR) 38(L) >=60 mL/min/BS A 09/07/2024 9:00 PM CDT DTL Comment: Estimated GFR calculated using the 2020 CKD_EPI creatinine equation. Calcium, Total, S 8.8 8.8 - 10.2 mg/dL 09/07/2024 9:00 PM CDT DTL Glucose, S 159(H) 70 - 140 mg/dL 09/07/2024 9:00 PM CDT DTL Protein, Total, S 5.9(L) 6.3 - 7.9 g/dL 09/07/2024 9:00 PM CDT DTL Albumin, S 3.5 3.5 - 5.0 g/dL 09/07/2024 9:00 PM CDT DTL Aspartate Aminotransferase (AST), S 155(H) 8 - 48 U/L 09/07/2024 9:00 PM CDT DTL Alkaline Phosphatase, S 101 40 - 129 U/L 09/07/2024 9:00 PM CDT DTL Alanine Aminotransferase (ALT), S 92(H) 7 - 55 U/L 09/07/2024 9:00 PM CDT DTL Bilirubin, Total, S 0.4 0.0 - 1.2 mg/dL 09/07/2024 9:00 PM CDT DTL Blood (Blood, Venous) 09/07/2024 7:31 PM CDT 09/07/2024 8:43 PM CDT Marga Hernandez P.A.-C. M.S. LAB BLOOD ADD-ON Fi nal Result [facility] [address] [place] [address], [facility] [address] [place] [address] * Necrotizing Myopathy Evaluation (09/07/2024 7:31 PM CDT) Necrotizing Myopathy Interp, S see below 09/14/2024 8:25 AM CDT DTL Comment: A negative result does not exclude the clinical diagnosis of necrotizing autoimmune myopathy (NAM). Muscle biopsy should be considered if clinically indicated. REFERENCES 1. EDY Neurol. 2015;72(9):996-1003. (PMID: [id number]) 2. J Immunol Res. 2014;2014:522140. (PMID: [id number]) 3. Brain. 2016; 139(Pt 8):2131-5. (PMID: [id number]) HMG-CoA Reductase Ab, S <20.0 <20.0 CU 09/14/2024 8:25 AM CDT DTL SRP IFA Screen, S Negative Negative 025 8:25 AM CDT DTL Comment: ----ADDITIONAL INFORMATION---- This test was developed and its performance characteristics determined by [facility] in a manner consistent with CLIA requirements. This test has not been cleared or approved by the U.S. Food and Drug Administration. Blood (Blood, Venous) 09/07/2024 7:31 PM CDT 09/08/2024 8:37 AM CDT Marga Hernandez P.A.-C., M.S. LAB BLOOD NON ADD-O N Final Result [facility] [address] [place] [address], [facility] DT [address] [address] * (ABNORMAL) Troponin T, Baseline with 2 Hour/6 Hour Reflex Biomarker Panel (09/07/2024 7:31 PM CDT) Troponin T, Baseline, 5th gen 543(H) <=15 ng/L 09/07/2024 8:40 PM CDT [facility] [place] Comment:Consider acute myoca rdial injury Blood (Blood, Venous) 09/07/2024 7:31 PM CDT 09/07/2024 8:19 PM CDT Marga Hernandez P.A.-C., M.S. LAB BLOOD TROPONIN Final Result Performing Organization Address [facility]/ZIP Co de Phone Number [facility] [address] [place] [address], [facility] [address] [place] [address] * (ABNORMAL) CK (Creatine Kinase) (09/07/2024 7:31 PM CDT) Creatine Kinase (CK), S 1259(H) 39 - 308 U/L 09/07/2024 9:00 PM CDT DTL Blood (Blood, Venous) 09/07/2024 7:31 PM CDT 09/07/2024 8:43 PM CDT Marga Hernandez P.A.-C. M.S. LAB BLOOD ADD-ON Fi nal Result Performing Organization Address City/[facility]/ZIP Co de Phone Number [facility] [address] [place] [address], [facility] [address] [place] [address] * ECG 12 Lead (09/07/2024 7:25 PM CDT) Ventricular Rate ECG/Min 56 BPM MUSE [place] Interval 228 ms MUSE QRSD Interval 128 ms MUSE QT Interval 470 ms MUSE QTC Interval 453 ms MUSE P [place] 89 degrees MUSE R [place] 46 degrees MUSE T Wave [place] 79 degrees MUSE 09/07/2024 7:25 PM CDT 09/07/2024 9:46 PM CDT Impressions MUSE - 09/07/2024 7:35 PM CDT Sinus tachycardia with 1st degree A-V block Left ventricular hypertrophy with QRS widening Cannot rule out inferolateral infarct Nonspecific ST and T wave abnormality When compared with ECG of 07-Oct-2019 06:55, Left ventricular hypertrophy with QRS widening is now present Reviewed by MÓNICA Condon Narrative Procedure Note Niels Sanon M.D., Ph.D. - 09/07/2024 IMPRESSION: Sinus tachycardia with 1st degree A-V block Left ventricular hypertrophy with QRS widening Cannot rule out inferolateral infarct Nonspecific ST and T wave abnormality When compared with ECG of 07-Oct-2019 06:55, Left ventricular hypertrophy with QRS widening is now present Reviewed by MÓNICA Condon Marga Hernandez P.A.-C., M.S. 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 Or Unspecified Chronic Kidney Disease Personal History Of Malignant Neoplasm Of Bladder Corticosteroid Treatment Metallurgical Tester Systemic documented in this encounter Admitting Diagnoses Diagnosis Myositis documented in this encounter Administered Medications Inactive Administered Medications - up to 3 most recent administrations Medication Order MAR Action Action Date Dose Rate Site acetaminophen tablet 650 mg (TylenoL) 650 mg, oral, Every 6 hours PRN, mild pain or score 1-3 of 10, moderate pain or score 4-6 of 10, Starting on Thu09/07/24 at 2156 acetaminophen tablet 650 mg (TylenoL) 650 mg, oral, Every 24 hours, First dose on Thu09/08/24 at 1330, For 5 doses, 30 minutes prior to each Immune Globulin dose for 5 doses Given 09/12/2024 2:11 PM CDT 650 mg Given 09/11/2024 3:13 PM CDT 650 mg Given 09/10/2024 2:24 PM CDT 650 mg allopurinoL tablet 300 mg (Zyloprim) 300 mg, oral, Every morning, First dose on Thu09/08/24 at 0900 Given 09/15/2024 8:27 AM CDT 300 mg Given 09/14/2024 8:21 AM CDT 300 mg Given 09/13/2024 9:23 AM CDT 300 mg amLODIPine tablet 10 mg (Norvasc) 10 mg, oral, Daily, First dose (after last modification) on Thu09/14/24 at 0900 Given 09/15/2024 8:27 AM CDT 10 mg Given 09/14/2024 8:21 AM CDT 10 mg amLODIPine tablet 5 mg (Norvasc) 5 mg, oral, Daily, First dose on Thu09/09/24 at 1245 Given 09/13/2024 9:15 AM CDT 5 mg Given 09/12/2024 8:41 AM CDT 5 mg Given 09/11/2024 9:28 AM CDT 5 mg amLODIPine tablet 5 mg (Norvasc) 5 mg, oral, Once, On Thu09/13/24 at 1045, For 1 dose Given 09/13/2024 10:39 AM CDT [address] tablet 10 mg (Dulcolax) 10 mg, oral, Daily PRN, constipation, Starting on Thu09/07/24 at 1900, PO route preferred. Constipation unrelieved by docusate sodium (COLACE) if ordered. If results needed within 2 hours give rectal suppository if ordered. Swallow whole. Do NOT crush, chew, or split tablet. Given 09/11/2024 9:28 AM CDT 10 mg Given 09/10/2024 9:36 PM CDT 10 mg Given 09/09/2024 9:42 AM CDT 10 mg calcium citrate-vitamin D3 315 mg-5 mcg (200 Unit) per tablet 1 tablet (Citracal + D3) 1 tablet, oral, 2 times daily with meals, First dose on Thu09/12/24 at 1700, Vitamin D: Units x 0.025 = mcg (e.g. 200 Units = 5 mcg; 250 Units = 6.25 mcg; 5,000 Units = 125 mcg) Given 09/15/2024 8:26 AM CDT 1 tablet Given 09/14/2024 6:32 PM CDT 1 tablet Given 09/14/2024 8:20 AM CDT 1 tablet carboxymethylcellulose 0.5 % ophthalmic solution 1 drop (Refresh Plus) 1 drop, both eyes, 4 times daily PRN, dry eyes, Starting on Thu09/07/24 at 2046 Given 09/09/2024 6:01 PM CDT 1 drop Given 09/08/2024 10:22 AM CDT 1 drop Given 09/07/2024 10:22 PM CDT 1 drop diphenhydrAMINE capsule 25 mg (BenadryL) 25 mg, oral, Daily, First dose on Thu09/08/24 at 1330, For 5 doses, 30 minutes prior to Immune Globulin dose Given 09/12/2024 2:11 PM CDT 25 mg Given 09/11/2024 3:13 PM CDT 25 mg Given 09/10/2024 2:24 PM CDT 25 mg ferrous sulfate tablet 65 mg of iron 65 mg of iron, oral, 3 times weekly (Once per day on Thursday), First dose on Thu09/09/24 at 0900, ferrous sulfate 325 mg (65 mg iron) was interchanged for ferrous sulfate 300 mg Given 09/14/2024 8:26 AM CDT 65 mg of iron Given 09/12/2024 9:15 AM CDT 65 mg of iron Given 09/09/2024 9:42 AM CDT 65 mg of iron furosemide injection 20 mg (Lasix) 20 mg, intravenous, Once, On Thu09/11/24 at 1145, For 1 dose, Adults: Doses less than 120 mg: IV push over 20 mg/minute. Doses 120 mg or greater: IVPB at 4 mg/minute. Peds/Neonates: Doses less than 120 mg over 0.5 mg/kg/minute. Doses 120 mg or greater: IVPB at 4 mg/minute. Given 09/11/2024 12:10 PM CDT 20 mg furosemide injection 40 mg (Lasix) 40 mg, intravenous, Once, On Thu09/09/24 at 1845, For 1 dose, Adults: Doses less than 120 mg: IV push over 20 mg/minute. Doses 120 mg or greater: IVPB at 4 mg/minute. Peds/Neonates: Doses less than 120 mg over 0.5 mg/kg/minute. Doses 120 mg or greater: IVPB at 4 mg/minute. Given 09/09/2024 9:45 PM CDT 40 mg furosemide injection 40 mg (Lasix) 40 mg, intravenous, Once, On Thu09/12/24 at 0945, For 1 dose, Adults: Doses less than 120 mg: IV push over 20 mg/minute. Doses 120 mg or greater: IVPB at 4 mg/minute. Peds/Neonates: Doses less than 120 mg over 0.5 mg/kg/minute. Doses 120 mg or greater: IVPB at 4 mg/minute. Given 09/12/2024 11:09 AM CDT 40 mg furosemide injection 40 mg (Lasix) 40 mg, intravenous, Once, On Thu09/13/24 at 1245, For 1 dose, Adults: Doses less than 120 mg: IV push over 20 mg/minute. Doses 120 mg or greater: IVPB at 4 mg/minute. Peds/Neonates: Doses less than 120 mg over 0.5 mg/kg/minute. Doses 120 mg or greater: IVPB at 4 mg/minute. Given 09/13/2024 12:39 PM CDT 40 mg furosemide injection 40 mg (Lasix) 40 mg, intravenous, Once, On Thu09/14/24 at 1715, For 1 dose, Adults: Doses less than 120 mg: IV push over 20 mg/minute. Doses 120 mg or greater: IVPB at 4 mg/minute. Peds/Neonates: Doses less than 120 mg over 0.5 mg/kg/minute. Doses 120 mg or greater: IVPB at 4 mg/minute. Given 09/14/2024 6:41 PM CDT 40 mg gadobutrol injection 0.01-30 mL (Gadavist) 0.01-30 mL, intravenous, Once in imaging, contrast, Starting on Thu09/08/24 at 1417, For 1 dose, Imaging Protocol Orders, Dose per Radiant Medication Guidelines Intrathecal doses greater than 0.25 mL not recommended. Given 09/08/2024 2:18 PM CDT 26 mL heparin (porcine) injection 5,000 Units 5,000 Units, subcutaneous, Every 8 hours scheduled, First dose on Shonda 09/08/24 at 0600 Given 09/15/2024 6:07 AM CDT 5,000 Units Right Lower Abdomen Given 09/14/2024 9:00 PM CDT 5,000 Units R ight Upper Abdomen Given 09/14/2024 2:04 PM CDT 5,000 Units R ight Upper Arm (Back) heparin flush 500 Units 500 Units, intra-catheter, During hospitalization, line care, Prior to discharge, Starting on Shonda 09/15/24 at 0741, For 1 dose, Implanted Vascular Access Device (IVAD) Venous Non-Valved: flush 5 mL (500 units) per port/lumen following saline flush prior to discharge. Given 09/15/2024 2:52 PM CDT 500 Units immune globulin (human) 10 % infusion 35 g (Gammagard) 35 g (rounded from 32.88 g = 0.4 g/kg 82.2 kg Bailey weight), intravenous, Daily, First dose (after last modification) on Shonda 09/08/24 at 1400, For 5 doses, Pump programming: use same weight used in dosing calculation. If no weight indicated: Calculate dose based on Bailey Body Weight (IBW). If Actual Body Weight (ABW) < IBW, use ABW. Start infusion at 0.5 mL/kg/hour for 30 minutes, then increase to 1 mL/kg/hour for 30 minutes, then increase to 2 mL/kg/hour for 30 minutes, then increase to 4 mL/kg/hour for 30 minutes, then may increase to maximum rate of 8 mL/kg/hour as tolerated until infusion complete. Do NOT shake or filter. Hand deliver., Restriction Criteria (Pharmacy will review and approve if criteria met): Meets IVIG administration criteria, Indications: Inflammatory MyopathiesIndications:Inflammator y Myopathies New Bag 09/12/2024 2:49 PM CDT 35 g 0.5 mL/hr Rate/Dose Change 09/11/2024 6:31 PM CDT 658 mL/ hr Rate/Dose Change 09/11/2024 5:56 PM CDT 329 mL/ hr loratadine tablet 10 mg (Claritin) 10 mg, oral, Every evening, First dose on [facility] 09/08/24 at 0000, Drug Monitoring Program: Pharmacist to adjust medication dosing based on indication and drug clearance factors. Given 09/14/2024 6:33 PM CDT 10 mg Given 09/13/2024 5:23 PM CDT 10 mg Given 09/12/2024 5:43 PM CDT 10 mg losartan tablet 100 mg (Cozaar) 100 mg, oral, Daily, First dose on [facility] 09/08/24 at 0900 Given 09/15/2024 8:27 AM CDT 100 mg Given 09/14/2024 8:21 AM CDT 100 mg Given 09/13/2024 9:14 AM CDT 100 mg methylPREDNISolone sodium succinate 1,000 mg in NaCl 0.9% IVPB 1,000 mg, intravenous, at 116-232 mL/hr, Administer over 15-30 Minutes, Every 24 hours, First dose (after last modification) on [facility] 09/08/24 at 0900, For 5 doses New Bag 09/12/2024 8:42 AM CDT 1,000 mg 116 mL/hr New Bag 09/11/2024 9:33 AM CDT 1,000 mg 232 mL/hr New Bag 09/10/2024 9:39 AM CDT 1,000 mg 232 mL/hr nystatin 100,000 unit/gram powder 1 Application (Nystop) 1 Application, topical, 2 times daily, First dose on Thu09/12/24 at 1500, Cleanse infected skin and apply evenly over affected area(s). [place] off any excess powder. Given 09/15/2024 8:36 AM CDT 1 Application Given 09/14/2024 8:46 PM CDT 1 Application Given 09/14/2024 8:24 AM CDT [address] tablet 40 mg (Protonix) 40 mg, oral, Daily before morning meal, First dose on [facility] 09/08/24 at 1330, Swallow whole. Do NOT crush, chew, or split tablet. Given 09/15/2024 6:07 AM CDT 40 mg Given 09/14/2024 6:47 AM CDT 40 mg Given 09/13/2024 6:21 AM CDT 40 mg polyethylene glycol powder packet 17 g (Miralax) 17 g, oral, Daily PRN, constipation, Starting on Thu09/08/24 at 2126, Dissolve in 240 mLs (8 ounces) of water prior to giving. Avoid mixing with starch-based thickened liquids. Given 09/12/2024 8:42 AM CDT 17 g Given 09/11/2024 9:28 AM CDT 17 g Given 09/10/2024 9:36 PM CDT 17 g polyethylene glycol powder packet 17 g (Miralax) 17 g, oral, 2 times daily, First dose (after last modification) on Thu09/13/24 at 0900, Dissolve in 240 mLs (8 ounces) of water prior to giving. Avoid mixing with starch-based thickened liquids. Given 09/15/2024 8:26 AM CDT 17 g Given 09/14/2024 8:18 AM CDT 17 g Given 09/13/2024 9:31 PM CDT 17 g predniSONE tablet 250 mg (Deltasone) 250 mg, oral, Daily, First dose (after last modification) on Thu09/13/24 at 0900, For 1 dose, Give with food Given 09/13/2024 9:15 AM CDT 250 mg predniSONE tablet 250 mg (Deltasone) 250 mg, oral, Daily, First dose on Thu09/14/24 at 1000, For 14 days Given 09/15/2024 8:26 AM CDT 250 mg Given 09/14/2024 11:00 AM CDT 250 mg sennosides-docusate sodium 8.6-50 mg per tablet 2 tablet (Senokot-S) 2 tablet, oral, 2 times daily, First dose (after last modification) on Thu09/07/24 at 2230 Given 09/15/2024 8:26 AM CDT 2 tablets Given 09/14/2024 8:43 PM CDT 2 tablets Given 09/14/2024 8:21 AM CDT 2 tablets sodium chloride (PF) 0.9 % injection 1-100 mL 1-100 mL, intravenous, Once, On Thu09/08/24 at 1445, For 1 dose, Imaging Protocol Orders, Dose per Radiant Medication Guidelines Given 09/08/2024 2:18 PM CDT 40 mL sodium chloride 0.9 % injection 10 mL 10 mL, intravenous, As needed, line care, Starting on Thu09/07/24 at 1859, Peripheral Intravenous Catheter and Rapid Infusion Catheter, prior to blood sampling, post blood transfusion or post blood sampling Given 09/15/2024 8:36 AM CDT 10 mL Given 09/14/2024 8:23 AM CDT 10 mL Given 09/11/2024 9:29 AM CDT 10 mL sodium chloride 0.9 % injection 10-20 mL 10-20 mL, intravenous, During hospitalization, line care, Prior to discharge, Starting on Shonda 09/15/24 at 0741, For 1 dose, Implanted Vascular Access Device (IVAD) Venous Non-Valved: Flush 10 mL per port/lumen followed by heparin flush prior to discharge. sodium chloride 0.9 % injection 3 mL 3 mL, intravenous, As needed, line care, Starting on Thu09/07/24 at 1859, Prior to and following infusion and between multiple consecutive infusions: sodium chloride 0.9 % injection Given 09/13/2024 12:39 PM CDT 3 mL sodium chloride 0.9 % injection 3 mL 3 mL, intravenous, Every 12 hours scheduled, First dose on Thu09/07/24 at 2100, Peripheral Intravenous Catheter and Rapid Infusion Catheter, when no infusion to maintain patency Given 09/14/2024 8: 38 PM CDT 3 mL Given 09/13/2024 9:32 PM CDT 3 mL Given 09/13/2024 9:13 AM CDT 3 mL sulfamethoxazole-trimethoprim 800-160 mg per tablet 1 tablet (Bactrim DS) 1 tablet, oral, Daily, First dose on Thu09/08/24 at 2015, For 5 days, Drug Monitoring Program: Pharmacist to adjust medication dosing based on indication and drug clearance factors., Indications: Prophylaxis, medicalIndications:Prophylaxis, medical Given 09/12/2024 8:42 AM CDT 1 ta blet Given 09/11/2024 9:28 AM CDT 1 tablet Given 09/10/2024 9:33 AM CDT 1 tablet sulfamethoxazole-trimethoprim 800-160 mg per tablet 1 tablet (Bactrim DS) 1 tablet, oral, Daily, First dose (after last reorder) on Thu09/13/24 at 0900, Drug Monitoring Program: Pharmacist to adjust medication dosing based on indication and drug clearance factors., Indications: Prophylaxis, medicalIndications:Prophylaxis, medical Given 09/15/2024 8:27 AM CDT 1 ta blet Given 09/14/2024 8:21 AM CDT 1 tablet Given 09/13/2024 9:15 AM CDT 1 tablet documented in this encounter Active and Recently Administered Medications Times are shown in CDT. Scheduled Medication Order 09/13/2024 09/14/2024 09/15/2024 allopurinoL tablet 300 mg (Zyloprim) 300 mg, oral, Every morning, First dose on Thu09/08/24 at 0900 0923 (Given - Provider: Chaitanya Jerez R.N.) 0821 (Given - Provider: Emmanuel DavidsonN.) 0827 (Given - Provider: Terri Arora R.N.) amLODIPine tablet 10 mg (Norvasc) 10 mg, oral, Daily, First dose (after last modification) on Thu09/14/24 at 0900 0821 (Given - Provider: Terri Arora R.N.) 0827 (Given - Provider: Terri Arora RLilianaN.) amLODIPine tablet 5 mg (Norvasc) (CANCELED) 5 mg, oral, Daily, First dose on Thu09/09/24 at 1245 0915 (Given - Provider: Chaitanya Jerez R.N.) amLODIPine tablet 5 mg (Norvasc) (COMPLETED) 5 mg, oral, Once, On Thu09/13/24 at 1045, For 1 dose 1039 (Given - Provider: Chaitanya Jerez RBolivar.) atenoloL tablet 25 mg (Tenormin) 25 mg, oral, Daily, First dose on Thu09/08/24 at 0900, On hold since Thu09/07/2024 at 2202 until manually unheld 0900 (Dose Auto Held) 0900 (Dose Auto Held) 0900 (Dose Auto Held)1736 (Unheld by provider - Provider: Discharge Provider, Automatic) calcium citrate-vitamin D3 315 mg-5 mcg (200 Unit) per tablet 1 tablet (Citracal + D3) 1 tablet, oral, 2 times daily with meals, First dose on Thu09/12/24 at 1700, Vitamin D: Units x 0.025 = mcg (e.g. 200 Units = 5 mcg; 250 Units = 6.25 mcg; 5,000 Units = 125 mcg) 0915 (Given - Provider: Chaitanya Jerez R.N.)1723 (Given - Provider: Chaitanya Jerez R.N.) 0820 (Given - Provider: Terri Arora R.N.)1832 (Given - Provider: Terri Arora R.N.) 0826 (Given - Provider: Terri Arora R.N.) ferrous sulfate tablet 65 mg of iron 65 mg of iron, oral, 3 times weekly (Once per day on Thursday), First dose on Thu09/09/24 at 0900, ferrous sulfate 325 mg (65 mg iron) was interchanged for ferrous sulfate 300 mg 08 (Given - Provider: Terri Arora R.N.) furosemide injection 40 mg (Lasix) (COMPLETED) 40 mg, intravenous, Once, On Thu09/13/24 at 1245, For 1 dose, Adults: Doses less than 120 mg: IV push over 20 mg/minute. Doses 120 mg or greater: IVPB at 4 mg/minute. Peds/Neonates: Doses less than 120 mg over 0.5 mg/kg/minute. Doses 120 mg or greater: IVPB at 4 mg/minute. 1239 (Given - Provider: Chaitanya Jerez R.N.) furosemide injection 40 mg (Lasix) (COMPLETED) 40 mg, intravenous, Once, On Thu09/14/24 at 1715, For 1 dose, Adults: Doses less than 120 mg: IV push over 20 mg/minute. Doses 120 mg or greater: IVPB at 4 mg/minute. Peds/Neonates: Doses less than 120 mg over 0.5 mg/kg/minute. Doses 120 mg or greater: IVPB at 4 mg/minute. 1841 (Given - Provider: Terri Arora R.N.) heparin (porcine) injection 5,000 Units 5,000 Units, subcutaneous, Every 8 hours scheduled, First dose on Thu09/08/24 at 0600 0621 (Given - Provider: Michael Guerrero R.N.)1534 (Given - Provider: Chaitanya Jerez R.N.)2131 (Given - Provider: Michael Guerrero R.N.) 0647 (Given - Provider: Michael Guerrero R.N.)1404 (Given - Provider: Terri Arora R.N.)2100 (Given - Provider: Yaz Stapleton, M.S., R.N.) 0607 (Given - Provider: Carrie Hutchinson R.N.)1518 (Not Given - Provider: Terri Arora R.N. - Reason: Patient/family refused) loratadine tablet 10 mg (Claritin) 10 mg, oral, Every evening, First dose on Shonda 09/08/24 at 0000, Drug Monitoring Program: Pharmacist to adjust medication dosing based on indication and drug clearance factors. 1723 (Given - Provider: Chaitanya Jerez R.N.) 1833 (Given - Provider: Terri Arora R.N.) losartan tablet 100 mg (Cozaar) 100 mg, oral, Daily, First dose on Shonda 09/08/24 at 0900 0914 (Given - Provider: Chaitanya Jerez R.N.) 0821 (Given - Provider: Terri Arora R.N.) 0827 (Given - Provider: Emmanuel DavidsonN.) nystatin 100,000 unit/gram powder 1 Application (Nystop) 1 Application, topical, 2 times daily, First dose on Thu09/12/24 at 1500, Cleanse infected skin and apply evenly over affected area(s). [place] off any excess powder. 1059 (Given - Provider: Chaitanya Jerez R.N.)2132 (Given - Provider: Michael Guerrero R.N.) 0824 (Given - Provider: Terri Arora R.N.)2046 (Given - Provider: Yaz Stapleton, M.S., R.N.) 0836 (Given - Provider: Terri Arora R.N.) pantoprazole DR tablet 40 mg (Protonix) 40 mg, oral, Daily before morning meal, First dose on Shonda 09/08/24 at 1330, Swallow whole. Do NOT crush, chew, or split tablet. 0621 (Given - Provider: Michael Guerrero R.N.) 0647 (Given - Provider: Michael Guerrero R.N.) 06 (Given - Provider: Carrie Hutchinson R.N.) polyethylene glycol powder packet 17 g (Miralax) 17 g, oral, 2 times daily, First dose (after last modification) on Thu09/13/24 at 0900, Dissolve in 240 mLs (8 ounces) of water prior to giving. Avoid mixing with starch-based thickened liquids. 0913 (Given - Provider: Chaitanya Jerez R.N.)2130 (Given - Provider: Michael Guerrero R.N.) 817 (Given - Provider: Terri Arora R.N.)2045 (Not Given - Provider: Yaz Stapleton, M.S., R.N. - Reason: Patient/family refused) 08 (Given - Provider: Terri Arora R.N.) predniSONE tablet 250 mg (Deltasone) (COMPLETED) 250 mg, oral, Daily, First dose (after last modification) on Thu09/13/24 at 0900, For 1 dose, Give with food 0915 (Given - Provider: Chaitanya Jerez R.N.) predniSONE tablet 250 mg (Deltasone) 250 mg, oral, Daily, First dose on Thu09/14/24 at 1000, For 14 days 1100 (Given - Provider: Terri Arora R.N.) 0826 (Given - Provider: Terri Arora R.N.) sennosides-docusate sodium 8.6-50 mg per tablet 2 tablet (Senokot-S) 2 tablet, oral, 2 times daily, First dose (after last modification) on Thu09/07/24 at 2230 0915 (Given - Provider: Chaitanya Jerez R.N.)2130 (Given - Provider: Michael Guerrero R.N.) 08 (Given - Provider: Terri Arora R.N.)2042 (Given - Provider: Yaz Stapleton, M.S., R.N.) 08 (Given - Provider: Terri Arora R.N.) sodium chloride 0.9 % injection 3 mL 3 mL, intravenous, Every 12 hours scheduled, First dose on Thu09/07/24 at 2100, Peripheral Intravenous Catheter and Rapid Infusion Catheter, when no infusion to maintain patency 0913 (Given - Provider: Chaitanya Jerez R.N.)2131 (Given - Provider: Michael Guerrero R.N.) 0823 (Not Given - Provider: Terri Arora R.N. - Reason: Order parameters not met)2037 (Given - Provider: Yaz Stapleton M.S. R.NLilinaa) 0836 (Not Given - Provider: Terri Arora R.N. - Reason: Order parameters not met) sulfamethoxazole-trimet hoprim 800-160 mg per tablet 1 tablet (Bactrim DS) 1 tablet, oral, Daily, First dose (after last reorder) on Thu09/13/24 at 0900, Drug Monitoring Program: Pharmacist to adjust medication dosing based on indication and drug clearance factors., Indications: Prophylaxis, medical 0915 (Given - Provider: Chaitanya Jerez R.N.) 0821 (Given - Provider: Terri Arora R.N.) 0827 (Given - Provider: Terri Arora R.N.) PRN Medication Order 09/13/2024 09/14/2024 09/15/2024 acetaminophen tablet 650 mg (TylenoL) 650 mg, oral, Every 6 hours PRN, mild pain or score 1-3 of 10, moderate pain or score 4-6 of 10, Starting on Thu09/07/[address] tablet 10 mg (Dulcolax) 10 mg, oral, Daily PRN, constipation, Starting on Thu09/07/24 at 1900, PO route preferred. Constipation unrelieved by docusate sodium (COLACE) if ordered. If results needed within 2 hours give rectal suppository if ordered. Swallow whole. Do NOT crush, chew, or split tablet. calcium carbonate chewable tablet 400 mg of calcium (Tums) 400 mg of calcium, oral, Every 2 hour PRN, indigestion, Not to exceed 12 tablets in 24 hours, Starting on Thu09/07/24 at 1900, Doses listed are in mg of elemental calcium. Take with food. 500 mg calcium carbonate contains 200 mg of elemental calcium. carboxymethylcellulose 0.5 % ophthalmic solution 1 drop (Refresh Plus) 1 drop, both eyes, 4 times daily PRN, dry eyes, Starting on Thu09/07/24 at 2046 heparin flush 500 Units (COMPLETED) 500 Units, intra-catheter, During hospitalization, line care, Prior to discharge, Starting on Shonda 09/15/24 at 0741, For 1 dose, Implanted Vascular Access Device (IVAD) Venous Non-Valved: flush 5 mL (500 units) per port/lumen following saline flush prior to discharge. 1452 (Given - Provider: Otis Santana R.N. - Comment: DC) sodium chloride 0.9 % injection 10 mL 10 mL, intravenous, As needed, line care, Starting on Thu09/07/24 at 1859, Peripheral Intravenous Catheter and Rapid Infusion Catheter, prior to blood sampling, post blood transfusion or post blood sampling 0823 (Given - Provider: Terri Arora R.N.) 0836 (Given - Provider: Terri Arora R.N.) sodium chloride 0.9 % injection 10-20 mL 10-20 mL, intravenous, During hospitalization, line care, Prior to discharge, Starting on Shonda 09/15/24 at 0741, For 1 dose, Implanted Vascular Access Device (IVAD) Venous Non-Valved: Flush 10 mL per port/lumen followed by heparin flush prior to discharge. sodium chloride 0.9 % injection 3 mL 3 mL, intravenous, As needed, line care, Starting on Thu09/07/24 at 1859, Prior to and following infusion and between multiple consecutive infusions: sodium chloride 0.9 % injection 1239 (Given - Provider: Chaitanya Jerez R.N.) documented in this encounter Additional Health Concerns Infection Onset Date Last Indicated Resolved Time Protective Environment 08/05/2024 08/05/202409/12 8:32 PM CDT documented as of this encounter
--- OUTSIDE RECORDS SUMMARY | 2024-09-14 09:30 | XMS_ITS | Encounter Summary ---
Author Organization [facility] Address [address] [place] [address] Care Team Providers Care Core Drier Name Role Phone Unavailable Primary Care Provider Unavailabl e Encounter Details Date Type Department Care Team (Latest Contact Info) Description 09/14/2024 9:30 AM CDT - 09/14/2024 11:59 PM CDT Hospital Encounter Division of Cardiovascular Diseases in [place], [place] [address], [place] [address] Anna Wilson P.A.-C. [address] [place] [address] Arrived Discharge Disposition: Home or Self Care Social History Tobacco Use Types Packs/Day Years Used Date Smoking Tobacco: Former Cigarettes 1 20 0 04/22/1959 - 04/22/1989 Passive Smoke Exposure: Past Smokeless Tobacco: Never Alcohol Use Standard Drinks/Week Comments Yes 6 (1 standard drink = 0.6 oz pur e alcohol) Light social drinker [facility] Utilities Answer Date Recorded In the [...] How often do you attend chur or jehovah's witness services? Patient declined 05/28/2022 Do you belong to any clubs o r organizations such as islam groups, unions, fraternal or athletic groups, or [...] care, and heating? Not very hard 09/05/2022 [facility] of Occupat ional Health - Occupational Stress [...] money to buy more. Never true 09/08/19 25 Within the past 12 months, t [...] your living situation today? I have a [facility] place to live 09/07/2024 Education Answer Date Recorded What is the highest level of school you have completed or the highest degree you have received? 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 Then, take [...] 3 5 documented as of this encounter Plan of Treatment Upcoming Encounters Date Type Department Care Team (Late st Contact Info) Description 09/16/2024 7:10 AM CDT Appointment Department of Laboratory Medicine and Pathology, [facility], in [place], [place] [address] [place] [phone] Tanya Herrmann P.A.-C. [address] [place] [phone] 09/16/2024 9:00 AM CDT Office Visit Department of Oncology in [place], [place] [address] [place] [phone] Tanya Herrmann P.A.-C. [address] [place] [phone] 09/22/2024 8:40 AM CDT Appointment Department of Laboratory Medicine and Pathology, [facility], in [place], [place] [address] [place] [phone] Tanya Herrmann P.A.-C. [address] [place] [phone] 09/22/2024 10:40 AM CDT Office Visit Department of Oncology in [place], [place] [address] [place] [phone] Holley Monsalve APRN, C.N.P. [address] [place] [phone] 09/22/2024 11:20 AM CDT Office Visit Department of Oncology in [place], [place] [address] [place] [phone] Izabella Garza M.D. [address] [place] [phone] 09/22/2024 1:00 PM CDT Comprehensive Visit Department of Cardiovascular Medicine in [place], [place] [address] [place] [phone] Tanya Dang APRN, C.N.P., D.N.P. [address] [place] [phone] 10/10/2024 2:30 PM CDT Clinical Communication Virtual Review in [place], [place] 200 [place] [phone] 10/11/2024 8:10 AM CDT Appointment Department of Laboratory Medicine and Pathology, [facility] in [place], [place] [address] [place] [phone] Soha Huggins P.A.-CLiliana [address] [place] [phone] 10/11/2024 9:00 AM CDT Appointment Department of Radiology, [facility] in [place], [place] [address] [place] [phone] Soha Huggins P.A.-CLiliana [address] [place] [phone] 10/11/2024 3:40 PM CDT Office Visit Department of Oncology in [address] [phone] Casimiro Chavez M.D., Ph.D. [address] [place] [phone] 11/22/2024 1:00 PM CDT Comprehensive Visit Department of Neurology in [address] [phone] Sandy Nicholson M.D., Ph.D. 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 Or Unspecified Chronic Kidney Disease Personal History Of Malignant Neoplasm Of Bladder 09/15/2024 2:01 PM CDT documented as of this encounter Procedures Procedure Name Priority Date/Time Associated Diagnosis Comments ECG AMBULATORY REAL TIME CARDIAC MONITORING - [facility] Routine 09/15/2024 2:01 PM CDT 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
[2024-09-15] VITALS (23 sets, daily range): BP systolic 85–150; BP diastolic 41–103; PULSE 72–80; RESP 14–28; TEMP 35.6–36.3; O2SAT 90–100
--- OUTSIDE RECORDS SUMMARY | 2024-09-15 19:01 | XMS_ITS | Encounter Summary ---
Author Organization [facility] Address [address] [place] [address] Care Team Providers Care Drum Sander Setter Name Role Phone Unavailable Primary Care Provider Unavailabl e Reason for Visit * Reason Onset Date Comments [facility] - Outside Materials 09/07/2024 Encounter Details Date Type Department Care Team (Latest Contact Info) Description 09/07/2024 Clinical Communication Department of Oncology in [place], [place] [address] [place] [address] Elisabeth Sanon, RBolivar., O.C.N. [address] [place] [phone] [facility] - Outside Materials Social History Tobacco Use Types Packs/Day Years Used Date Smoking Tobacco: Former Cigarettes 1 20 0 04/22/1959 - 04/22/1989 Passive Smoke Exposure: Past Smokeless Tobacco: Never Alcohol Use Standard Drinks/Week Comments Yes 6 (1 standard drink = 0.6 oz pur e alcohol) Light social drinker [facility] Utilities Answer Date Recorded In the past 12 months has [employer] gas, oil, or water [employer] threatened to shut off services in your [...] How often do you attend chur or lutheran services? Patient declined 05/28/2022 Do you belong to any clubs o r organizations such as orthodoxy groups, unions, fraternal or athletic groups, or [...] care, and heating? Not very hard 09/05/2022 [facility] of Occupat ional Health - Occupational [...] your living situation today? I have a [facility] place to live 09/07/2024 Education Answer Date Recorded What is the highest level of school you have completed or the highest degree you have received? 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 [address] [place] [phone] 09/16/2024 9:00 AM CDT Office Visit Department of Oncology in [place], [place] 200 [place] [phone] Tanya Herrmann P.A.-C. [address] [place] [phone] 09/22/2024 8:40 AM CDT Appointment Department of Laboratory Medicine and Pathology, [facility] in [place], [place] [address] [place] [phone] Tanya Herrmann P.A.-C. [address] [place] [phone] 09/22/2024 10:40 AM CDT Office Visit Department of Oncology in [place], [place] [address] [place] [phone] Holley Monsalve APRN, C.N.P. [address] [place] [phone] 09/22/2024 11:20 AM CDT Office Visit Department of Oncology in [place], [place] [address] [place] [phone] Izabella Garza M.D. [address] [place] [phone] 09/22/2024 1:00 PM CDT Comprehensive Visit Department of Cardiovascular Medicine in [place], [place] [address] [place] [phone] Tanya Dang APRN, C.N.P., D.N.P. [address] [place] [phone] 10/10/2024 2:30 PM CDT Clinical Communication Virtual Review in [place], [place] 200 [place] [phone] 10/11/2024 8:10 AM CDT Appointment Department of Laboratory Medicine and Pathology, [facility], in [place], [place] [address] [place] [phone] Soha Huggins P.A.-C. [address] [place] [phone] 10/11/2024 9:00 AM CDT Appointment Department of Radiology, [facility], in [place], [place] [address] [place] [phone] Soha Huggins P.A.-C. [address] [place] [phone] 10/11/2024 3:40 PM CDT Office Visit Department of Oncology in [place], [place] [address] [place] [phone] Casimiro Chavez M.D., Ph.D. [address] [place] [phone] 11/22/2024 1:00 PM CDT Comprehensive Visit Department of Neurology in [place], [place] [address] [place] [phone] Sandy Nicholson M.D., Ph.D. [address] [place] [phone] documented as of this encounter Visit Diagnoses Not on filedocumented in this encounter Additional Health Concerns Infection Onset Date Last Indicated Resolved Time Protective Environment 08/05/2024 08/05/202409/12 8:32 PM CDT documented as of this encounter
--- OUTSIDE RECORDS SUMMARY | 2024-09-15 19:01 | XMS_ITS | Encounter Summary ---
Author Organization [facility] Address [address] [place] [address] Care Team Providers Care Cylinder Head Assembler Name Role Phone Unavailable Primary Care Provider Unavailabl e Encounter Details Date Type Department Care Team (Late st Contact Info) Description 09/07/2024 Clinical Communication Department of Social Work in [place], [place] [address] [place] [phone] Devin Cai, M.S.W., L.I.C.S.W. [address] [place] [phone] Social History Tobacco Use Types Packs/Day Years Used Date Smoking Tobacco: Former Cigarettes 1 20 0 04/22/1959 - 04/22/1989 Passive Smoke Exposure: Past Smokeless Tobacco: Never Alcohol Use Standard Drinks/Week Comments Yes 6 (1 standard drink = 0.6 oz pur e alcohol) Light social drinker [facility] Utilities Answer Date Recorded In the past 12 months has [employer], gas, oil, or water [employer] threatened to shut off services in your [...] week 05/28/2022 How often do you attend [facility] or latter-day services? Patient declined 05/28/2022 Do you belong to any clubs o r organizations such as presybeterian groups, unions, fraternal or athletic groups, or [...] care, and heating? Not very hard 09/05/2022 [facility] of Occupat ional Health - Occupational Stress [...] living situation today? I have a [facility] place to live 09/07/2024 Education Answer Date Recorded What is the highest level of school you have completed or the highest degree you have received? 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 - 09/07/2024 4:18 PM CDT Outpatient cory social media editor received a phone call from patient's son, Chiki. Chiki reports that the patient is hospitalized at [facility] and has been asked to transfer to [facility]. Chiki states that nothing is being done to facilitate the transfer. Outpatient social workeradvised Chiki to consult an inpatient case briefer/social media editor at [facility], who are often tasked in facilitating a hospital transfer. Chiki was not satisfied with this answer. tube worker offered [facility] phone number, but he refused. documented in this encounter Plan of Treatment Upcoming Encounters Date Type Department Care Team (Late st Contact Info) Description 09/16/2024 7:10 AM CDT Appointment Department of Laboratory Medicine and Pathology, [facility] in [place], [place] [address] [place] [phone] Tanya Herrmann P.A.-C. [address] [place] [phone] 09/16/2024 9:00 AM CDT Office Visit Department of Oncology in [place], [place] [address] [place] [phone] Tanya Herrmann P.A.-C. [address] [place] [phone] 09/22/2024 8:40 AM CDT Appointment Department of Laboratory Medicine and Pathology, [facility] in [place], [place] [address] [place] [phone] Tanya Herrmann P.A.-C. [address] [place] [phone] 09/22/2024 10:40 AM CDT Office Visit Department of Oncology in [place], [place] [address] [place] [phone] Holley Monsalve APRN, C.N.P. [address] [place] [phone] 09/22/2024 11:20 AM CDT Office Visit Department of Oncology in [place], [place] [address] [place] [phone] Izabella Garza M.D. [address] [place] [phone] 09/22/2024 1:00 PM CDT Comprehensive Visit Department of Cardiovascular Medicine in [place], [place] [address] [place] [phone] Tanya Dang APRN, C.N.P., D.N.P. [address] [place] [phone] 10/10/2024 2:30 PM CDT Clinical Communication Virtual Review in [place], [place] 200 [place] [address] 10/11/2024 8:10 AM CDT Appointment Department of Laboratory Medicine and Pathology, [facility] in [place], [place] [address] [place] [phone] Soha Huggins, P.A.-C. [address] [place] [phone] 10/11/2024 9:00 AM CDT Appointment Department of Radiology, [facility], in [place], [place] [address] [place] [phone] Soha Huggins, P.A.-C. [address] [place] [phone] 10/11/2024 3:40 PM CDT Office Visit Department of Oncology in [address] [phone] Casimiro Chavez M.D., Ph.D. [address] [place] [phone] 11/22/2024 1:00 PM CDT Comprehensive Visit Department of Neurology in [place], [place] [address] [place] [phone] Sandy Nicholson M.D., Ph.D. 200 [place] [phone] documented as of this encounter Visit Diagnoses Not on filedocumented in this encounter Additional Health Concerns Infection Onset Date Last Indicated Resolved Time Protective Environment 08/05/2024 08/05/202409/12 8:32 PM CDT documented as of this encounter
--- OUTSIDE RECORDS SUMMARY | 2024-09-15 19:01 | XMS_ITS | Encounter Summary ---
Author Organization [facility] Address [address] [place] [address] Care Team Providers Care Cloth Shrinking Tester Name Role Phone Unavailable Primary Care Provider Unavailabl e Encounter Details Date Type Department Care Team (Latest Contact Info) Description 09/06/2024 Intake [facility] Social History Tobacco Use Types Packs/Day Years Used Date Smoking Tobacco: Former Cigarettes 1 20 0 04/22/1959 - 04/22/1989 Passive Smoke Exposure: Past Smokeless Tobacco: Never Alcohol Use Standard Drinks/Week Comments Yes 6 (1 standard drink = 0.6 oz pur e alcohol) Light social drinker [facility] Utilities Answer Date Recorded In the past 12 months has [employer], gas, oil, or water [employer] threatened to shut off services in your [...] often do you attend chur ch or amish services? Patient declined 05/28/2022 Do you belong to any clubs o r organizations such as sabianist groups, unions, fraternal or athletic groups, or [...] care, and heating? Not very hard 09/05/2022 [facility] ional [facility] - [...] your living situation today? I have a [facility] place to live 09/07/2024 Education Answer Date Recorded What is the highest level of school you have completed or the highest degree you have received? 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 - 09/06/2024 7:40 PM CDT ICI responsible of the day Received message from Oncology front end assistant over night Dr. 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 Patient is a 83 year old male with metastatic urothelial cancer who received his first dose of pembrolizumab/Enfortumab on 08/05/2024. Per outside records he presented to his local infusion center at [facility] on 09/06/2024 in anticipation of cycle #2 of therapy with new profound muscle weakness with inability to stand without assistance and weak neck extensor muscles, ptosis, and shortness of breath (visibly winded with talking per outside note). Outside initial labs on 09/06/2024 revealed CK 3687 Troponin I 0.24 (ref range 0.01-0.04) BNP 921 He was started on 120 mg of IV solumedrol. Spoke with Dr. Soto this am and patient is stable. Unfortunately they do not have the ability to pursue CMR and/or PLEX if needed. Discussed transfer to [facility] for further workup. Patient accepted to Cardiology by Dr. Trejo. Patient currently getting ECHO. This is done by [facility] and results should be available in EPIC. Images will be pushed. Outside chest x-ray will be pushed. ICI recommendations: Obtain CK, Trop T, Trop I, Necrotizing myopathy panel, MG panel, CMP, CBC w/diff, Cardiac MRI, EMG. Patient should be started on 1 gram IV solumedrol (should have received a dose prior to transfer), plan for minimum 3-5 days Please perform NIFs upon arrival and every [address] Oncology Consult for ICI Patients with Triple M can have fatality rates of up to 75% and can decompensate quickly requiring intubation and mechanical ventilation. Please do not hesitate to escalate care. Please don't hesitate to reach out to the ICI responsible during regular business hours at [phone] or for after hours assistance please contact Oncology front end assistant. * Nicanor Deluna, M.S.W., L.I.C.S.W. - 09/06/2024 7:40 PM CDT [facility]: ATC referral SUBJECTIVE Referral received from Admissions and Transfer Center on 09/07/24, as part of hospital transfer request from [facility], [facility] (phone: [phone]). OBJECTIVE This patient was accepted for transfer prior to the assessment process. This is a 83 y.o. year old male from [address] [place] [phone]. The patient was admitted to their facility on 09/06/24 for progressive weakness. The physician is requesting transfer. The patient and family is aware of, and agrees with, the request to transfer. Reason for transfer request: Higher level of care. Patient is alert and oriented, able to make their own decisions. Referring facility reports the following information: Oxygen: Patient is not requiring supplemental oxygen. Bariatric equipment: Patient does not require bariatric equipment. Mobility: ambulating with the use of gait belt and standby assist ADLs: Patient does not require assistance with activities of daily living. Prior to admission, the patient was living at home independently with family support. Wound care: No concerns Diet: Regular diet Isolation precautions: No concerns Dialysis: None IV Antibiotics: None Behavioral concerns: No concerns Psychiatric concerns: No concerns Legal concerns: No concerns Financial concerns: No concerns Family concerns: No concerns Multiple hospitalizations: No concerns Patient has the following supports: Anticipated discharge disposition according to referring facility: Home Self Care ASSESSMENT / PLAN It appears that minimal barriers to discharge planning have been identified as noted above. PLAN: I have discussed that in the event the patient is transferred here the social cost of travel such as lodging, meals, and transport home are the personal responsibility of the patient and family. Theyhave agreed to relay this information to the family. Bibi Reyes, WillySLilianaWLiliana 09/07/2024 documented in this encounter Plan of Treatment Upcoming Encounters Date Type Department Care Team (Late st Contact Info) Description 09/16/2024 7:10 AM CDT Appointment Department of Laboratory Medicine and Pathology, [place], [place] [address] [place] [phone] Tanya Herrmann P.A.-C. [address] [place] [phone] 09/16/2024 9:00 AM CDT Office Visit Department of Oncology in [place], [place] [address] [place] [phone] Tanya Herrmann P.A.-C. [address] [place] [phone] 09/22/2024 8:40 AM CDT Appointment Department of Laboratory Medicine and Pathology, [place], [place] [address] [place] [phone] Tanya Herrmann P.A.-C. [address] [place] [phone] 09/22/2024 10:40 AM CDT Office Visit Department of Oncology in [place], [place] [address] [place] [phone] Holley Monsalve APRN, C.N.P. [address] [place] [phone] 09/22/2024 11:20 AM CDT Office Visit Department of Oncology in [place], [place] [address] [place] [phone] Izabella Garza M.D. [address] [place] [phone] 09/22/2024 1:00 PM CDT Comprehensive Visit Department of Cardiovascular Medicine in [place], [place] [address] [place] [phone] Tanya Dang APRN, C.N.P., D.N.P. [address] [place] [phone] 10/10/2024 2:30 PM CDT Clinical Communication Virtual Review in [place], [place] 200 [place] [phone] 10/11/2024 8:10 AM CDT Appointment Department of Laboratory Medicine and Pathology, [facility] in [place], [place] [address] [place] [phone] Soha Huggins P.A.-C. [address] [place] [phone] 10/11/2024 9:00 AM CDT Appointment Department of Radiology, [facility], in [place], [place] [address] [place] [phone] Soha Huggins P.A.-C. [address] [place] [phone] 10/11/2024 3:40 PM CDT Office Visit Department of Oncology in [place], [place] [address] [place] [phone] Casimiro Chavez M.D., Ph.D. [address] [place] [phone] 11/22/2024 1:00 PM CDT Comprehensive Visit Department of Neurology in [place], [place] [address] [place] [phone] Sandy Nicholson M.D., Ph.D. [address] [place] [phone] documented as of this encounter Visit Diagnoses Not on filedocumented in this encounter Additional Health Concerns Infection Onset Date Last Indicated Resolved Time Protective Environment 08/05/2024 08/05/202409/12 8:32 PM CDT documented as of this encounter
--- OUTSIDE RECORDS SUMMARY | 2024-09-15 19:01 | XMS_ITS | Encounter Summary ---
Author Organization [facility] Address [address] [place] [phone] Care Team Providers Care Supervisor Tower Name Role Phone Unavailable Primary Care Provider Unavailabl e Reason for Referral * Outpatient (Routine) - Authorized Specialty Diagnoses / Procedures Referred By Contact Referred To Contact Cardiovascular Diseases / Cardiovascular Disease Diagnoses Myositis Malignant Neoplasm Of Bladder (HCC) Tanya Herrmann P.A.-C. [address] [place] [phone] Phone: tel: fax: [facility] Referral ID Status Reason Start Date Expiration Date V isits Requested Visits Authorized [id number] Authorized 09/12/2024 03/14/2026 1 1 * Outpatient (Routine) - Authorized Specialty Diagnoses / Procedures Referred By Contac t Referred To Contact Oncology Tanya Herrmann P.A.-C. [address] [place] [phone] Phone: tel: fax: [facility] Referral ID Status Reason Start Date Expiration Date V isits Requested Visits Authorized [id number] Authorized 09/12/2024 03/14/2026 1 1 * Outpatient (Routine) - Authorized Specialty Diagnoses / Procedures Referred By Contac t Referred To Contact Oncology Tanya Herrmann P.A.-C. [address] [place] [phone] Phone: tel: fax: [facility] Referral ID Status Reason Start Date Expiration Date V isits Requested Visits Authorized [id number] Authorized 09/12/2024 03/14/2026 1 1 Encounter Details Date Type Department Care Team (Late st Contact Info) Description 09/12/2024 Clinical Communication [facility] [address] [place] [phone] Tanya Herrmann P.A.-C. [address] [place] [phone] Social History Tobacco Use Types Packs/Day Years Used Date Smoking Tobacco: Former Cigarettes 1 20 0 04/22/1959 - 04/22/1989 Passive Smoke Exposure: Past Smokeless Tobacco: Never Alcohol Use Standard Drinks/Week Comments Yes 6 (1 standard drink = 0.6 oz pur e alcohol) Light social drinker [facility] Utilities Answer Date Recorded In the past 12 months has [employer], gas, oil, or water [employer] threatened to shut off services in your [...] How often do you attend chur or nondenominational services? Patient declined 05/28/2022 Do you belong to any clubs o r organizations such as jain groups, unions, fraternal or athletic groups, or [...] care, and heating? Not very hard 09/05/2022 [facility] Occupat ional Health - Occupational Stress [...] living situation today? I have a [facility] place to live 09/07/2024 Education Answer Date Recorded What is the highest level of school you have completed or the highest degree you have received? Bachelor's degree (e.g., BA, AB, BS) 05/16/2019 Sex and Gender Information Value Date Recorded Sex Assigned at Male 01/13/2020 10:41 AM CDT Legal Sex Male 3:35 PM PROTOCOL MANAGER Gender Identity Male 04/11/2018 8:29 AM PROTOCOL MANAGER Sexual Orientation Straight 04/11/2018 8: 29 AM PROTOCOL MANAGER documented as of this encounter Plan of Treatment Upcoming Encounters Date Type Department Care Team (Late st Contact Info) Description 09/16/2024 7:10 AM CDT Appointment Department of Laboratory Medicine and Pathology, [facility] in [place], [place] [address] [place] [phone] Tanya Herrmann P.A.-C. [address] [place] [phone] 09/16/2024 9:00 AM CDT Office Visit Department of Oncology in [place], [place] [address] [place] [phone] Tanya Herrmann P.A.-C. [address] [place] [phone] 09/22/2024 8:40 AM CDT Appointment Department of Laboratory Medicine and Pathology, [facility] in [place], [place] [address] [place] [phone] Tanya Herrmann P.A.-C. [address] [place] [phone] 09/22/2024 10:40 AM CDT Office Visit Department of Oncology in [place], [place] [address] [place] [phone] Holley Monsalve APRN, C.N.P. [address] [place] [phone] 09/22/2024 11:20 AM CDT Office Visit Department of Oncology in [address] [phone] Izabella Garza M.D. [address] [place] [phone] 09/22/2024 1:00 PM CDT Comprehensive Visit Department of Cardiovascular Medicine in [address] [phone] Tanya Dang APRN, C.N.PLiliana, D.N.P. [address] [place] [phone] 10/10/2024 2:30 PM CDT Clinical Communication Virtual Review in [place], [place] 200 [place] [phone] 10/11/2024 8:10 AM CDT Appointment Department of Laboratory Medicine and Pathology, [facility], in [address] [phone] Soha Huggins P.A.-C. [address] [place] [phone] 10/11/2024 9:00 AM CDT Appointment Department of Radiology, [facility], in [place], [place] [address] [place] [phone] Soha Huggins P.A.-C. [address] [place] [phone] 10/11/2024 3:40 PM CDT Office Visit Department of Oncology in [place], [place] [address] [place] [phone] Casimiro Chavez M.D., Ph.D. [address] [place] [phone] 11/22/2024 1:00 PM CDT Comprehensive Visit Department of Neurology in [place], [place] [address] [place] [phone] Sandy Nicholson M.D., Ph.D. [address] [place] [phone] Scheduled Referrals Name Type Priority Associated Diagnoses Order Schedule Oncology office visit (clinic) Outpatient Referral Routine Expected: 09/16/2024, Expires: 12/13/2025 Oncology office visit (clinic) Outpatient Referral Routine Expected: 09/22/2024, Expires: 12/13/2025 Cardiovascular Disease - Cardio oncology consult (clinic) Outpatient Referral Routine Myositis Malignant Neoplasm Of Bladder (HCC) Expected: 09/22/2024, Expires: 12/13/2025 documented as of this encounter Visit Diagnoses Diagnosis Myositis- Primary Malignant Neoplasm Of Bladder (HCC) documented in this encounter Additional Health Concerns Infection Onset Date Last Indicated Resolved Time Protective Environment 08/05/2024 08/05/202409/12 8:32 PM CDT documented as of this encounter
--- OUTSIDE RECORDS SUMMARY | 2024-09-15 19:02 | XMS_ITS | Encounter Summary ---
Author Organization [facility] Address [address] [place] [address] Care Team Providers Care Manager Transmission Name Role Phone None Reported, Pcp Primary Care Provider Unavail able Reason for Visit * Reason Onset Date Comments Lab Question 07/19/2024 Canceling Tempus , alternate testing available. Encounter Details Date Type Department Care Team (Latest Contact Info) Description 07/19/2024 Clinical Communication Department of Oncology in [place], [place] [address] [place] [phone] Casimiro Chavez M.D., Ph.D. [address] [place] [phone] Lab Question (Canceling Tempus, alternate testing available. ) Social History Tobacco Use Types Packs/Day Years Used Date Smoking Tobacco: Former Cigarettes 1 20 0 04/22/1959 - 04/22/1989 Smokeless Tobacco: Never Alcohol Use Standard Drinks/Week Comments Yes 6 (1 standard drink = 0.6 oz pur e alcohol) 1 cup coffee daily [facility] Utilities Answer Date Recorded In the past 12 months has [employer] electric, gas, oil, or water company threatened [...] How often do you attend chur or mu-ism services? Patient declined 05/28/2022 Do [...] care, and heating? Not very hard 09/05/2022 [facility] Occupat ional Health - Occupational [...] your living situation today? I have a [facility] place to live 07/05/2024 Education Answer Date Recorded What is the highest level of school you have completed or the highest degree you have received? Bachelor's degree (e.g., BA, AB, BS) 05/16/2019 Sex and Gender Information Value Date Recorded Sex Assigned at Male 01/13/2020 10:41 AM CDT Legal Sex Male 3:35 PM TEST DEVELOPMENT ENGINEER Gender Identity Male 04/11/2018 8:29 AM TEST DEVELOPMENT ENGINEER Sexual Orientation Straight 04/11/2018 8: 29 AM TEST DEVELOPMENT ENGINEER documented as of this encounter Plan of Treatment Upcoming Encounters Date Type Department Care Team (Late st Contact Info) Description 09/16/2024 7:10 AM CDT Appointment Department of Laboratory Medicine and Pathology, [facility] in [place], [place] 200 [place] [phone] Tanya Herrmann P.A.-C. 200 [place] [phone] 09/16/2024 9:00 AM CDT Office Visit Department of Oncology in [place], [place] [address] [place] [phone] Tanya Herrmann P.A.-C. [address] [place] [phone] 09/22/2024 8:40 AM CDT Appointment Department of Laboratory Medicine and Pathology, [facility] in [place], [place] [address] [place] [phone] Tanya Herrmann P.A.-C. [address] [place] [phone] 09/22/2024 10:40 AM CDT Office Visit Department of Oncology in [address] [phone] Holley Monsalve APRN, C.N.PLiliana [address] [place] [phone] 09/22/2024 11:20 AM CDT Office Visit Department of Oncology in [address] [phone] Izabella Garza M.D. [address] [place] [phone] 09/22/2024 1:00 PM CDT Comprehensive Visit Department of Cardiovascular Medicine in [address] [phone] Tanya Dang APRN, C.N.P., D.N.P. [address] [place] [phone] 10/10/2024 2:30 PM CDT Clinical Communication Virtual Review in [place], [place] 200 [place] [phone] 10/11/2024 8:10 AM CDT Appointment Department of Laboratory Medicine and Pathology, [facility], in [place], [place] [address] [place] [phone] Soha Huggins P.A.-C. [address] [place] [phone] 10/11/2024 9:00 AM CDT Appointment Department of Radiology, [facility] in [place], [place] [address] [place] [phone] Soha Huggins P.A.-C. [address] [place] [phone] 10/11/2024 3:40 PM CDT Office Visit Department of Oncology in [place], [place] [address] [place] [phone] Casimiro Chavez M.D., Ph.D. [address] [place] [phone] 11/22/2024 1:00 PM CDT Comprehensive Visit Department of Neurology in [place], [place] [address] [place] [phone] Sandy Nicholson M.D., Ph.D. [address] [place] [phone] documented as of this encounter Visit Diagnoses Not on filedocumented in this encounter Additional Health Concerns Infection Onset Date Last Indicated Resolved Time Protective Environment 08/05/2024 08/05/202409/12 8:32 PM CDT documented as of this encounter Care Teams Manager Transmission Relationship Specialty Start Date End Date None Reported, Pcp PCP - General Family Medicine 10/13/22 08/03/24 documented as of this encounter
--- OUTSIDE RECORDS SUMMARY | 2024-09-15 19:02 | XMS_ITS | Encounter Summary ---
Author Organization [facility] Address [address] [place] [address] Care Team Providers Care Leader Assembler Name Role Phone None Reported, Pcp Primary Care Provider Unavail able Reason for Visit * Reason Onset Date Comments Appt Request 08/02/2024 Abstract 08/02/2024 Encounter Details Date Type Department Care Team (Latest Contact Info) Description 08/02/2024 Clinical Communication Department of Oncology in [place], [place] [address] [place] [phone] Casimrio Chavez M.D., Ph.D. [address] [place] [phone] Appt Request; Abstract Social History Tobacco Use Types Packs/Day Years Used Date Smoking Tobacco: Former Cigarettes 1 20 0 04/22/1959 - 04/22/1989 Smokeless Tobacco: Never Alcohol Use Standard Drinks/Week Comments Yes 6 (1 standard drink = 0.6 oz pur e alcohol) 1 cup coffee daily [facility] Utilities Answer Date Recorded In the past 12 months has e [employer], gas, oil, or water [employer] threatened to shut off services in your [...] How often do you attend chur or jain services? Patient declined 05/28/2022 Do you belong to any clubs o r organizations such as mandaen groups, unions, fraternal or athletic groups, or [...] care, and heating? Not very hard 09/05/2022 [facility] of Occupat ional Health - Occupational Stress [...] your living situation today? I have a [facility] place to live 07/05/2024 Education Answer Date Recorded What is the highest level of school you have completed or the highest degree you have received? Bachelor's degree (e.g., BA, AB, BS) 05/16/2019 Sex and Gender Information Value Date Recorded Sex Assigned at Male 01/13/2020 10:41 AM CDT Legal Sex Male 3:35 PM MANAGER PAID Gender Identity Male 04/11/2018 8:29 AM MANAGER PAID Sexual Orientation Straight 04/11/2018 8: 29 AM MANAGER PAID documented as of this encounter Plan of Treatment Upcoming Encounters Date Type Department Care Team (Late st Contact Info) Description 09/16/2024 7:10 AM CDT Appointment Department of Laboratory Medicine and Pathology, [facility], in [place], [place] 200 [place] [address] Tanya Herrmann P.A.-C. 200 [place] [address] 09/16/2024 9:00 AM CDT Office Visit Department of Oncology in [place], [place] [address] [place] [phone] Tanya Herrmann P.A.-C. [address] [place] [phone] 09/22/2024 8:40 AM CDT Appointment Department of Laboratory Medicine and Pathology, [facility] in [place], [place] [address] [place] [phone] Tanya Herrmann P.A.-C. [address] [place] [phone] 09/22/2024 10:40 AM CDT Office Visit Department of Oncology in [address] [phone] Holley Monsalve APRN, C.N.P. [address] [place] [phone] 09/22/2024 11:20 AM CDT Office Visit Department of Oncology in [address] [phone] Izabella Garza M.D. [address] [place] [phone] 09/22/2024 1:00 PM CDT Comprehensive Visit Department of Cardiovascular Medicine in [address] [phone] Tanya Dang APRN, C.N.P., D.N.P. [address] [place] [phone] 10/10/2024 2:30 PM CDT Clinical Communication Virtual Review in [place], [place] 200 [place] [address] 10/11/2024 8:10 AM CDT Appointment Department of Laboratory Medicine and Pathology, [facility] in [place], [place] [address] [place] [address] Soha Huggins P.A.-C. [address] [place] [phone] 10/11/2024 9:00 AM CDT Appointment Department of Radiology, [facility] in [place], [place] [address] [place] [address] Soha Huggins P.A.-C. [address] [place] [phone] 10/11/2024 3:40 PM CDT Office Visit Department of Oncology in [place], [place] [address] [place] [phone] Casimiro Chavez M.D., Ph.D. [address] [place] [phone] 11/22/2024 1:00 PM CDT Comprehensive Visit Department of Neurology in [place], [place] [address] [place] [phone] Sandy Nicholson M.D., Ph.D. [address] [place] [phone] documented as of this encounter Visit Diagnoses Not on filedocumented in this encounter Additional Health Concerns Infection Onset Date Last Indicated Resolved Time Protective Environment 08/05/2024 08/05/202409/12 8:32 PM CDT documented as of this encounter Care Teams Leader Assembler Relationship Specialty Start Date End Date None Reported, Pcp PCP - General Family Medicine 10/13/22 08/03/24 documented as of this encounter
--- OUTSIDE RECORDS SUMMARY | 2024-09-15 19:02 | XMS_ITS | Encounter Summary ---
Author Organization [facility] Address [address] [place] [address] Care Team Providers Care Genetics Teacher Name Role Phone None Reported, Pcp Primary Care Provider Unavail able Encounter Details Date Type Department Care Team (Late st Contact Info) Description 07/21/2024 CPAP Download Remote Patient Monitoring [facility] 200 [place] [address] [facility], Provider, Social History Tobacco Use Types Packs/Day Years Used Date Smoking Tobacco: Former Cigarettes 1 20 0 04/22/1959 - 04/22/1989 Smokeless Tobacco: Never Alcohol Use Standard Drinks/Week Comments Yes 6 (1 standard drink = 0.6 oz pur e alcohol) 1 cup coffee daily [facility] Utilities Answer Date Recorded In the past 12 months has th e [employer], gas, oil, or water [employer] threatened to shut off services in your [...] care, and heating? Not very hard 09/05/2022 [facility] of Occupat ional Health - Occupational [...] your living situation today? I have a [facility] place to live 07/05/2024 Education Answer Date Recorded What is the highest level of school you have completed or the highest degree you have received? Bachelor's degree (e.g., BA, AB, BS) 05/16/2019 Sex and Gender Information Value Date Recorded Sex Assigned at Male 01/13/2020 10:41 AM CDT Legal Sex Male 3:35 PM WOUND NURSE Gender Identity Male 04/11/2018 8:29 AM WOUND NURSE Sexual Orientation Straight 04/11/2018 8: 29 AM WOUND NURSE documented as of this encounter Plan of Treatment Upcoming Encounters Date Type Department Care Team (Late st Contact Info) Description 09/16/2024 7:10 AM CDT Appointment Department of Laboratory Medicine and Pathology, [facility] in [place], [place] [address] [place] [address] Tanya Herrmann P.A.-C. [address] [place] [phone] 09/16/2024 9:00 AM CDT Office Visit Department of Oncology in [place], [place] [address] [place] [phone] Tanya Herrmann P.A.-C. [address] [place] [phone] 09/22/2024 8:40 AM CDT Appointment Department of Laboratory Medicine and Pathology, [facility], in [place], [place] [address] [place] [phone] Tanya Herrmann P.A.-C. [address] [place] [phone] 09/22/2024 10:40 AM CDT Office Visit Department of Oncology in [place], [place] [address] [place] [phone] Holley Monsalve APRN, C.N.P. [address] [place] [phone] 09/22/2024 11:20 AM CDT Office Visit Department of Oncology in [address] [phone] Izabella Garza M.D. [address] [place] [phone] 09/22/2024 1:00 PM CDT Comprehensive Visit Department of Cardiovascular Medicine in [address] [phone] Tanya Dang APRN, C.N.P., D.N.P. [address] [place] [phone] 10/10/2024 2:30 PM CDT Clinical Communication Virtual Review in [place], [place] 200 [place] [phone] 10/11/2024 8:10 AM CDT Appointment Department of Laboratory Medicine and Pathology, [facility], in [place], [place] [address] [place] [phone] Soha Huggins P.A.-C. [address] [place] [phone] 10/11/2024 9:00 AM CDT Appointment Department of Radiology, [facility], in [place], [place] [address] [place] [phone] Soha Huggins P.A.-C. [address] [place] [phone] 10/11/2024 3:40 PM CDT Office Visit Department of Oncology in [place], [place] [address] [place] [phone] Casimiro Chavez M.D., Ph.D. [address] [place] [phone] 11/22/2024 1:00 PM CDT Comprehensive Visit Department of Neurology in [place], [place] [address] [place] [phone] Sandy Nicholson M.D., Ph.D. [address] [place] [phone] documented as of this encounter Visit Diagnoses Not on filedocumented in this encounter Additional Health Concerns Infection Onset Date Last Indicated Resolved Time Protective Environment 08/05/2024 08/05/202409/12 8:32 PM CDT documented as of this encounter Care Teams Genetics Teacher Relationship Specialty Start Date End Date None Reported, Pcp PCP - General Family Medicine 10/13/22 08/03/24 documented as of this encounter
--- OUTSIDE RECORDS SUMMARY | 2024-09-15 19:02 | XMS_ITS | Encounter Summary ---
Author Organization [facility] Address [address] [place] [address] Care Team Providers Care Aquatic Director Name Role Phone Unavailable Primary Care Provider Unavailabl e Encounter Details Date Type Department Care Team (Late st Contact Info) Description 08/05/2024 Orders Only Department of Oncology in [place], [place] [address] [place] [address] Tung Walker Malignant Neoplasm Of Bladder (HCC) (Primary Dx) Social History Tobacco Use Types Packs/Day Years Used Date Smoking Tobacco: Former Cigarettes 1 20 0 04/22/1959 - 04/22/1989 Passive Smoke Exposure: Past Smokeless Tobacco: Never Alcohol Use Standard Drinks/Week Comments Yes 6 (1 standard drink = 0.6 oz pur e alcohol) Light social drinker [facility] Utilities Answer Date Recorded In the past 12 months has [facility] [employer], gas, oil, or water [employer] threatened to shut off services in your [...] any clubs o r organizations such as amish groups, unions, [employer] or athletic groups, or school groups? No [...] your living situation today? I have a [facility] place to live 07/05/2024 Education Answer Date Recorded What is the highest level of school you have completed or the highest degree you have received? Bachelor's degree (e.g., BA, AB, BS) 05/16/2019 Sex and Gender Information Value Date Recorded Sex Assigned at Male 01/13/2020 10:41 AM CDT Legal Sex Male 3:35 PM CLINICAL TECHNICIAN Gender Identity Male 04/11/2018 8:29 AM CLINICAL TECHNICIAN Sexual Orientation Straight 04/11/2018 8: 29 AM CLINICAL TECHNICIAN documented as of this encounter Plan of Treatment Upcoming Encounters Date Type Department Care Team (Late st Contact Info) Description 09/16/2024 7:10 AM CDT Appointment Department of Laboratory Medicine and Pathology, [facility], in [place], [place] 200 [place] [address] Tanya Herrmann P.A.-C. [address] [place] [phone] 09/16/2024 9:00 AM CDT Office Visit Department of Oncology in [place], [place] 200 [place] [address] Tanya Herrmann P.A.-C. [address] [place] [phone] 09/22/2024 8:40 AM CDT Appointment Department of Laboratory Medicine and Pathology, [facility] in [place], [place] [address] [place] [phone] Tanya Herrmann P.A.-C. [address] [place] [phone] 09/22/2024 10:40 AM CDT Office Visit Department of Oncology in [place], [place] [address] [place] [phone] Holley Monsalve APRN, C.N.P. [address] [place] [phone] 09/22/2024 11:20 AM CDT Office Visit Department of Oncology in [place], [place] [address] [place] [phone] Izabella Garza M.D. [address] [place] [phone] 09/22/2024 1:00 PM CDT Comprehensive Visit Department of Cardiovascular Medicine in [address] [phone] Tanya Dang APRN, C.N.PLiliana, D.N.P. [address] [place] [phone] 10/10/2024 2:30 PM CDT Clinical Communication Virtual Review in [place], [place] 200 [place] [address] 10/11/2024 8:10 AM CDT Appointment Department of Laboratory Medicine and Pathology, [facility], in [place], [place] [address] [place] [phone] SpychSoha self P.A.-C. [address] [place] [phone] 10/11/2024 9:00 AM CDT Appointment Department of Radiology, [facility], in [place], [place] [address] [place] [phone] Soha Huggins P.A.-C. [address] [place] [phone] 10/11/2024 3:40 PM CDT Office Visit Department of Oncology in [place], [place] [address] [place] [phone] Casimiro Chavez M.D., Ph.D. [address] [place] [phone] 11/22/2024 1:00 PM CDT Comprehensive Visit Department of Neurology in [place], [place] [address] [place] [phone] Sandy Nicholson M.D., Ph.D. [address] [place] [phone] documented as of this encounter Results * [facility], Blood (08/05/2024 5:54 PM CDT) Number of Specimens 1 08/05/2024 5:54 PM CDT HSS Blood (Blood, Venous) 08/05/2024 5:54 PM CDT 08/05/2024 5:54 PM CDT us Casimiro Chavez M.D., Ph.D. LAB RESEARCH NO RESULT ROUTING Final Result [facility] 200 [place] [address], [place] HSS [facility] 200 [place] [address] documented in this encounter Visit Diagnoses Diagnosis Malignant Neoplasm Of Bladder (HCC)- Primary documented in this encounter
--- OUTSIDE RECORDS SUMMARY | 2024-09-15 19:02 | XMS_ITS | Encounter Summary ---
Author Organization [facility] Address [address] [place] [address] Care Team Providers Care Flaring Machine Operator Name Role Phone None Reported, Pcp Primary Care Provider Unavail able Encounter Details Date Type Department Care Team (Late st Contact Info) Description 07/19/2024 Clinical Communication Department of Oncology in [place], [place] [address] [place] [phone] Casimiro Chavez M.D., Ph.D. [address] [place] [phone] Social History Tobacco Use Types Packs/Day Years Used Date Smoking Tobacco: Former Cigarettes 1 20 0 04/22/1959 - 04/22/1989 Smokeless Tobacco: Never Alcohol Use Standard Drinks/Week Comments Yes 6 (1 standard drink = 0.6 oz pur e alcohol) 1 cup coffee daily [facility] Utilities Answer Date Recorded In the past 12 months has [employer], oil, or water [employer] threatened to shut off services in your [...] How often do you attend [facility] or pentecostalism services? Patient declined 05/28/2022 Do you belong to any clubs o r organizations such as samaritan groups, unions, fraternal or athletic groups, or [...] care, and heating? Not very hard 09/05/2022 [facility] - Occupational Stress Questionnaire Answer Date [...] your living situation today? I have a [facility] place to live 07/05/2024 Education Answer Date Recorded What is the highest level of school you have completed or the highest degree you have received? Bachelor's degree (e.g., BA, AB, BS) 05/16/2019 Sex and Gender Information Value Date Recorded Sex Assigned at Male 01/13/2020 10:41 AM CDT Legal Sex Male 3:35 PM FREIGHT REPRESENTATIVE Gender Identity Male 04/11/2018 8:29 AM FREIGHT REPRESENTATIVE Sexual Orientation Straight 04/11/2018 8: 29 AM FREIGHT REPRESENTATIVE documented as of this encounter Plan of Treatment Upcoming Encounters Date Type Department Care Team (Late st Contact Info) Description 09/16/2024 7:10 AM CDT Appointment Department of Laboratory Medicine and Pathology, [facility], in [place], [place] [address] [place] [address] Tanya Herrmann P.A.-C. [address] [place] [phone] 09/16/2024 9:00 AM CDT Office Visit Department of Oncology in [place], [place] [address] [place] [address] Tanya Herrmann P.A.-C. [address] [place] [phone] 09/22/2024 8:40 AM CDT Appointment Department of Laboratory Medicine and Pathology, [facility] in [place], [place] [address] [place] [phone] Tanya Herrmann P.A.-C. [address] [place] [phone] 09/22/2024 10:40 AM CDT Office Visit Department of Oncology in [place], [place] [address] [place] [phone] Holley Monsalve APRN, C.N.P. [address] [place] [phone] 09/22/2024 11:20 AM CDT Office Visit Department of Oncology in [place], [place] [address] [place] [phone] Izabella Garza M.D. [address] [place] [phone] 09/22/2024 1:00 PM CDT Comprehensive Visit Department of Cardiovascular Medicine in [place], [place] [address] [place] [phone] Tanya Dang APRN, C.N.P., D.N.P. [address] [place] [phone] 10/10/2024 2:30 PM CDT Clinical Communication Virtual Review in [place], [place] 200 [place] [address] 10/11/2024 8:10 AM CDT Appointment Department of Laboratory Medicine and Pathology, [facility], in [place], [place] [address] [place] [phone] Soha Huggins P.A.-C. [address] [place] [address] 10/11/2024 9:00 AM CDT Appointment Department of Radiology, [facility], in [place], [place] [address] [place] [address] Soha Huggins P.A.-C. [address] [place] [phone] 10/11/2024 3:40 PM CDT Office Visit Department of Oncology in [place], [place] [address] [place] [address] Casimiro Chavez M.D., Ph.D. [address] [place] [phone] 11/22/2024 1:00 PM CDT Comprehensive Visit Department of Neurology in [place], [place] [address] [place] [address] Sandy Nicholson M.D., Ph.D. [address] [place] [phone] documented as of this encounter Visit Diagnoses Not on filedocumented in this encounter Additional Health Concerns Infection Onset Date Last Indicated Resolved Time Protective Environment 08/05/2024 08/05/202409/12 8:32 PM CDT documented as of this encounter Care Teams Flaring Machine Operator Relationship Specialty Start Date End Date None Reported, Pcp PCP - General Family Medicine 10/13/22 08/03/24 documented as of this encounter
--- OUTSIDE RECORDS SUMMARY | 2024-09-15 19:02 | XMS_ITS | Encounter Summary ---
Author Organization [facility] Address [address] [place] [address] Care Team Providers Care Sales Service Technician Name Role Phone None Reported, Pcp Primary Care Provider Unavail able Encounter Details Date Type Department Care Team (Late st Contact Info) Description 07/08/2024 Results Follow-Up Department of Urology in [place], [place] [address] [place] [phone] Austin, Carol, JALEESA, C.N.P., D.N.P., M.S. [address] [place] [phone] CT Lymph Node Biopsy, Cytology Fine Needle Aspiration (including core biopsies) Social History Tobacco Use Types Packs/Day Years Used Date Smoking Tobacco: Former Cigarettes 1 20 0 04/22/1959 - 04/22/1989 Smokeless Tobacco: Never Alcohol Use Standard Drinks/Week Comments Yes 6 (1 standard drink = 0.6 oz pur e alcohol) 1 cup coffee daily [facility] Utilities Answer Date Recorded In the past 12 months has e [employer], gas, oil, or water company threatened to [...] How often do you attend chur or presybeterian services? Patient declined 05/28/2022 Do you belong to any clubs o r organizations such as zoroastrianism groups, unions, fraternal or athletic groups, or [...] care, and heating? Not very hard 09/05/2022 [facility] of Occupat ional Health - Occupational Stress [...] your living situation today? I have a [facility] place to live 07/05/2024 Education Answer Date Recorded What is the highest level of school you have completed or the highest degree you have received? Bachelor's degree (e.g., BA, AB, BS) 05/16/2019 Sex and Gender Information Value Date Recorded Sex Assigned at Male 01/13/2020 10:41 AM CDT Legal Sex Male 3:35 PM FISH SMOKER Gender Identity Male 04/11/2018 8:29 AM FISH SMOKER Sexual Orientation Straight 04/11/2018 8: 29 AM FISH SMOKER documented as of this encounter Plan of Treatment Upcoming Encounters Date Type Department Care Team (Late st Contact Info) Description 09/16/2024 7:10 AM CDT Appointment Department of Laboratory Medicine and Pathology, [facility], in [place], [place] 200 [place] [address] Tanya Herrmann P.A.-C. 200 [place] [phone] 09/16/2024 9:00 AM CDT Office Visit Department of Oncology in [place], [place] [address] [place] [phone] Tanya Herrmann P.A.-C. [address] [place] [phone] 09/22/2024 8:40 AM CDT Appointment Department of Laboratory Medicine and Pathology, [facility] in [place], [place] [address] [place] [phone] Tanya Herrmann P.A.-C. [address] [place] [phone] 09/22/2024 10:40 AM CDT Office Visit Department of Oncology in [address] [phone] Holley Monsalve APRN, C.N.P. [address] [place] [phone] 09/22/2024 11:20 AM CDT Office Visit Department of Oncology in [address] [phone] Izabella Garza M.D. [address] [place] [phone] 09/22/2024 1:00 PM CDT Comprehensive Visit Department of Cardiovascular Medicine in [address] [phone] Tanya Dang APRN, C.N.P., D.N.P. [address] [place] [phone] 10/10/2024 2:30 PM CDT Clinical Communication Virtual Review in [place], [place] 200 [place] [address] 10/11/2024 8:10 AM CDT Appointment Department of Laboratory Medicine and Pathology, [facility] in [place], [place] [address] [place] [address] Soha Huggins P.A.-C. [address] [place] [phone] 10/11/2024 9:00 AM CDT Appointment Department of Radiology, [facility] in [place], [place] [address] [place] [address] Soha Huggins P.A.-C. [address] [place] [phone] 10/11/2024 3:40 PM CDT Office Visit Department of Oncology in [place], [place] [address] [place] [phone] Casimiro Chavez M.D., Ph.D. [address] [place] [phone] 11/22/2024 1:00 PM CDT Comprehensive Visit Department of Neurology in [place], [place] [address] [place] [phone] Sandy Nicholson M.D., Ph.D. [address] [place] [phone] documented as of this encounter Visit Diagnoses Not on filedocumented in this encounter Additional Health Concerns Infection Onset Date Last Indicated Resolved Time Protective Environment 08/05/2024 08/05/202409/12 8:32 PM CDT documented as of this encounter Care Teams Sales Service Technician Relationship Specialty Start Date End Date None Reported, Pcp PCP - General Family Medicine 10/13/22 08/03/24 documented as of this encounter
--- OUTSIDE RECORDS SUMMARY | 2024-09-15 19:02 | XMS_ITS | Encounter Summary ---
Author Organization [facility] Address [address] [place] [id number] Care Team Providers Care Lawyers Name Role Phone Unavailable Primary Care Provider Unavailabl e Reason for Visit * Reason Onset Date Comments Order Request 08/05/2024 Encounter Details Date Type Department Care Team (Late st Contact Info) Description 08/05/2024 Clinical Communication Department of Oncology in [place], [place] [address] [place] [phone] Casimiro Chavez M.D., Ph.D. [address] [place] [phone] Order Request Social History Tobacco Use Types Packs/Day Years Used Date Smoking Tobacco: Former Cigarettes 1 20 0 04/22/1959 - 04/22/1989 Passive Smoke Exposure: Past Smokeless Tobacco: Never Alcohol Use Standard Drinks/Week Comments Yes 6 (1 standard drink = 0.6 oz pur e alcohol) Light social drinker [facility] Utilities Answer Date Recorded In the past 12 months has [employer], gas, oil, or water [employer] threatened to shut off services in your [...] How often do you attend chur or jewish services? Patient declined 05/28/2022 Do you belong to any clubs o r organizations such as sikhism groups, unions, fraternal or athletic groups, or [...] care, and heating? Not very hard 09/05/2022 [facility] of Occupat ional Health - Occupational Stress [...] [facility] place to live 07/05/2024 Education Answer Date Recorded What is the highest level of school you have completed or the highest degree you have received? 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 [address] [place] [phone] 09/16/2024 9:00 AM CDT Office Visit Department of Oncology in [place], [place] [address] [place] [phone] Tanya Herrmann P.A.-C. [address] [place] [phone] 09/22/2024 8:40 AM CDT Appointment Department of Laboratory Medicine and Pathology, [facility] in [place], [place] [address] [place] [phone] Tanya Herrmann P.A.-C. [address] [place] [phone] 09/22/2024 10:40 AM CDT Office Visit Department of Oncology in [place], [place] [address] [place] [phone] Holley Monsalve APRN, C.N.PLiliana [address] [place] [phone] 09/22/2024 11:20 AM CDT Office Visit Department of Oncology in [place], [place] [address] [place] [phone] Izabella Garza M.D. [address] [place] [phone] 09/22/2024 1:00 PM CDT Comprehensive Visit Department of Cardiovascular Medicine in [address] [phone] Tanya Dang APRN, C.N.P., D.N.P. [address] [place] [phone] 10/10/2024 2:30 PM CDT Clinical Communication Virtual Review in [place], [place] 200 [place] [phone] 10/11/2024 8:10 AM CDT Appointment Department of Laboratory Medicine and Pathology, [facility] in [place], [place] [address] [place] [phone] Soha Huggins P.A.-C. [address] [place] [phone] 10/11/2024 9:00 AM CDT Appointment Department of Radiology, [facility], in [place], [place] [address] [place] [phone] Soha Huggins P.A.-C. [address] [place] [phone] 10/11/2024 3:40 PM CDT Office Visit Department of Oncology in [place], [place] [address] [place] [phone] Casimiro Chavez M.D., Ph.D. [address] [place] [phone] 11/22/2024 1:00 PM CDT Comprehensive Visit Department of Neurology in [place], [place] [address] [place] [phone] Sandy Nicholson M.D., Ph.D. [address] [place] [phone] documented as of this encounter Visit Diagnoses Not on filedocumented in this encounter Additional Health Concerns Infection Onset Date Last Indicated Resolved Time Protective Environment 08/05/2024 08/05/202409/12 8:32 PM CDT documented as of this encounter
--- OUTSIDE RECORDS SUMMARY | 2024-09-15 19:03 | XMS_ITS | Clinical Summary ---
Author Organization [facility] Address [address] [place] [address] Care Team Providers Care Associate Product Manager Name Role Phone Unavailable Primary Care Provider Unavailabl e Source Comments Patient records contain information from all sites at [facility]. For routine questions regarding patient records, call [phone] during business hours, M-F 8:00 AM - 5:00 PM Central Time. Record requests for emergency care only can be directed to [phone] at any time.[facility] Allergies No known active allergies Medications * This document contains information received from the source organization and may not represent a complete record from that organization. sennosides-do cusate sodium (SENOKOT-S) 8.6-50 mg per tablet Take 2 tablets by mouth 2 (two) times a day. 017 Active simvastatin (ZOCOR) 40 mg tablet Take 40 mg by mouth at bedtime. 012 Active allopurinol (ZYLOPRIM) 300 mg tablet Take 300 mg by mouth every morning. 012 Active cholecalcifer ol (VITAMIN D3) 2,000 Unit capsule Take 2,000 Units by mouth every evening. Active triamcinolone (KENALOG) 0.1 % cream Apply 1 Application topically as needed for irritation or rash. Active DME Bi-level PAPIndication s:Central Sleep Apnea Syndrome,Apne a Sleep Obstructive DME Order 1 each 11 022 Active losartan (COZAAR) 100 mg tablet Take 100 mg by mouth daily. 023 Active KRILL OIL ORAL Take 1 capsule by mouth every evening. Active diphenhydrami ne HCl (ALLERGY ORAL) Take 1 tablet by mouth 2 (two) times a day. Active DME Ostomy suppliesIndic ations:Condui t Ileal (HCC) DME Order 1 Unspecified 11 Active ferrous sulfate 324 mg (65 mg iron) DR tablet Take 65 mg of iron by mouth 3 (three) times a week. Active prochlorperaz ine (Compazine) 10 mg tabletIndicat ions:Malignan t Neoplasm Of Bladder (HCC),Seconda ry Malignant Neoplasm Lymph Node (HCC) Take 1 tablet (10 mg total) by mouth every 6 (six) hours as needed for nausea or vomiting. 30 tablet 2025 Active ondansetron (Zofran) 8 mg tabletIndicat ions:Malignan t Neoplasm Of Bladder (HCC),Seconda ry Malignant Neoplasm Lymph Node (HCC) Take 1 tablet (8 mg total) by mouth every 8 (eight) hours as needed for nausea or vomiting (unrelieved by prochlorperazine ). 30 tablet 2025 Active triamcinolone (Kenalog) 0.1 % lotionIndicat ions:Malignan t Neoplasm Of Bladder (HCC),Seconda ry Malignant Neoplasm Lymph Node (HCC) Apply 1 Application topically 2 (two) times a day as needed (Rash, Itching). 180 mL Active hydrOXYzine (Atarax) 25 mg tabletIndicat ions:Malignan t Neoplasm Of Bladder (HCC),Seconda ry Malignant Neoplasm Lymph Node (HCC) Take 1 tablet (25 mg total) by mouth 3 (three) times a day as needed for itching. 30 tablet 3 Active acetaminophen (TylenoL) 500 mg tablet Take 1 tablet (500 mg total) by mouth every 6 (six) hours as needed for pain. Active amLODIPine (Norvasc) 10 mg tablet Take 1 tablet (10 mg total) by mouth daily. 90 tablet 3 09/16/19 25 12:41 PM CDT 025 Active pantoprazole (Protonix) 40 mg EC tablet Take 1 tablet (40 mg total) by mouth daily before morning meal. While on high dose steroids. 90 tablet 3 09/16/19 25 12:41 PM CDT Active bisacodyL (Dulcolax) 5 mg EC tablet Take 2 tablets (10 mg total) by mouth daily as needed for constipation. Active loratadine (Claritin) 10 mg tablet Take 1 tablet (10 mg total) by mouth every evening. Active polyethylene glycol (Miralax) 17 gram powder packet Take 1 packet (17 g total) by mouth 2 (two) times a day. Dissolve each 17 g dose in 240 mLs (8 ounces) of beverage. Active nystatin (Nystop) 100,000 unit/gram powder Apply 1 Application topically 2 (two) times a day. Apply to affected intertriginous areas of skin and brush off any excess powder. 15 g 09/16/19 25 12:41 PM CDT Active furosemide (Lasix) 20 mg tablet Take 1 tablet (20 mg total) by mouth daily as needed (weight gain greater than 3 lbs in 24 hours or 5 lbs in one week). 90 tablet 3 09/16/19 25 12:41 PM CDT Active sulfamethoxaz ole-trimethop rim (Bactrim DS) 800-160 mg per tabletIndicat ions:Prophyla xis, medical Take 1 tablet by mouth daily Indications: Prophylaxis, medical. While on high dose steroids. 90 tablet 1 09/16/19 25 12:41 PM CDT Active predniSONE (Deltasone) 50 mg tablet Take 5 tablets (250 mg) daily until 09/16/2024 with [facility] follow up and labs. Then, take as directed from [facility] provider. 70 tablet 09/16/19 25 12:41 PM CDT Active turmeric root extract 500 mg capsule Take 500 mg by mouth daily. 2024 Discontinued(T herapy completed) atenoloL (TENORMIN) 25 mg tablet Take 25 mg by mouth daily. 2024 Discontinued(S top Taking at Discharge) acetaminophen (TYLENOL) 500 mg tablet Take 1,000 mg by mouth every 6 (six) hours as needed for pain. 2024 Discontinued phentermine 15 mg capsule Take 15 mg by mouth every morning. 025 2024 Discontinued(T herapy completed) hydroCHLOROth iazide (HydroDiuril) 25 mg tablet Take 25 mg by mouth daily. 2024 Discontinued(S top Taking at Discharge) Active Problems Patient Care Coordination No te Formatting of this note migh t be different from the original. Authorization to disclose protected health information signed for Luz Baugh - spouse on 04/22/18. Problem Noted Date Diagnosed Date Hydronephrosis 09/15/2024 Myositis 09/07/2024 Malignant Neoplasm Of Bladder 07/12/2024 Overview (07/29/2024): [...] other targeted treatments. Somatic testing ordered through [employer]. We discussed that clinical trials are often available at [facility] and that we prioritize clinical trials because we believe these are the most effective treatments available in any given disease state. Patient is eligible for the [employer] study ([id number], [id number]). I reiterated that there is no compensation and no change in treatment being on this study. Patient has consented and will undergo baseline blood draw 07/18/2024. EV/Pembro is planned to start 08/04/2024. I have notified Tung Walker and [email or web address] by email of this patient's participation in the study with the following: Date/Time of Collection: 07/18/2024 IRB#: [id number] ([employer]) Patient Name: Michael Baugh Patient ID: [id number] Visit #: Baseline We discussed the recommendation of establishing care with a local oncologist to manage medications, side effects, and disease closer to home. Mr. 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 Arrived Discharge Disposition: Home or Self Care 09/12/2024 Clinical Communication [facility] [address] [place] [phone] Tanya Herrmann, P.A.-C. 09/07/2024 6:42 PM CDT - 09/15/2024 3:36 PM CDT Hospital Encounter [facility], [facility], Fifth Floor [address] [place] [phone] Zeke Trejo M.D., M.P.H. Garrison Torres M.D. Olson, Lyle J, M.D. 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 09/07/2024 Clinical Communication Department of Oncology in [place], [place] [address] [place] [phone] Elisabeth Sanon R.N., O.C.N. [facility] - Outside Materials 09/06/2024 Intake [facility] 08/21/2024 CPAP Download Remote Patient Monitoring [facility] [address] [address] [place] [address] [facility] 08/16/2024 Clinical Communication Department of Oncology in [place], [place] [address] [place] [phone] Casimiro Chavez M.D., Ph.D. 08/12/2024 10:00 AM CDT Infusion Department of Oncology in [address] [phone] Casimiro Chavez M.D., Ph.D. Malignant Neoplasm Of Bladder (HCC) (Primary Dx) 08/10/2024 Orders Only Department of Oncology in [place], [place] [address] [place] [phone] Tung Walker Malignant Neoplasm Of Bladder (HCC) (Primary Dx); Secondary Malignant Neoplasm Lymph Node (HCC) 08/09/2024 Clinical Communication Pharmacy Prior Auth RO [phone] Mague Aleman Rx Approval (Hydroxyzine HCL 25 mg) 08/05/2024 3:30 PM CDT Infusion Department of Oncology in [place], [place] [address] [place] [phone] Casimiro Chavez M.D., Ph.D. Malignant Neoplasm Of Bladder (HCC) (Primary Dx) 08/05/2024 2:40 PM CDT Education Department of Oncology in [place], [place] [address] [place] [phone] Casimiro Chavez M.D., Ph.D. Soha Huggins P.A.-C. Malignant Neoplasm Of Bladder (HCC) 08/05/2024 1:20 PM CDT Office Visit Department of Oncology in [address] [phone] Soha Huggins P.ALiliana-C. Secondary Malignant Neoplasm Lymph Node (HCC) (Primary Dx); Malignant Neoplasm Of Bladder (HCC) 08/05/2024 Orders Only Department of Oncology in [address] [address] Tung Walker Malignant Neoplasm Of Bladder (HCC) (Primary Dx) 08/05/2024 Clinical Communication Department of Oncology in [address] [phone] Casimiro Chavez M.D., Ph.D. Order Request 08/04/2024 4:15 PM CDT Clinical Communication Virtual Review in [address] [phone] Pre-visit Intake 08/02/2024 Clinical Communication Department of Oncology in [address] [phone] Casimiro Chavez M.D., Ph.D. Appt Request; Abstract 07/29/2024 Orders Only Department of Oncology in [address] [phone] Casimiro Chavez M.D., Ph.D. Malignant Neoplasm Of Bladder (HCC) (Primary Dx) 07/27/2024 Orders Only Department of Oncology in [address] [phone] Tung Walker Malignant Neoplasm Of Bladder (HCC) (Primary Dx) 07/21/2024 CPAP Download Remote Patient Monitoring [facility] [address] [address] [place] [address] [facility] 07/20/2024 10:00 AM CDT Admin Visit Department of Oncology in [place], [place] [address] [place] [phone] 07/20/2024 Orders Only Department of Oncology in [place], [place] [address] [place] [phone] Casimiro Chavez M.D., Ph.D. Malignant Neoplasm Of Bladder (HCC) (Primary Dx) 07/19/2024 Clinical Communication Department of Oncology in [place], [place] [address] [place] [phone] Casimiro Chavez M.D., Ph.D. Lab Question (Canceling Tempus, alternate testing available. ) 07/19/2024 Clinical Communication Department of Oncology in [place], [place] [address] [place] [phone] Casimiro Chavez M.D., Ph.D. 07/18/2024 1:20 PM CDT Comprehensive Visit Department of Oncology in [place], [place] [address] [place] [phone] Casimiro Chavez M.D., Ph.D. Malignant Neoplasm Of Bladder (HCC) (Primary Dx); Secondary Malignant Neoplasm Lymph Node (HCC); Personal History Of Malignant Neoplasm Of Bladder; Urostomy Status Post (HCC) 07/18/2024 10:12 AM CDT - 07/18/2024 11:59 PM CDT Hospital Encounter Department of Laboratory Medicine and Pathology, [facility], in [place], [place] [address] [place] [phone] Carol Avila APRN, C.N.P., D.N.P., M.S. Secondary Malignant Neoplasm Lymph Node (HCC); Personal History Of Malignant Neoplasm Of Bladder; Urostomy Status Post (HCC); Morbid Obesity Body Mass Index 40.0-44.9 Adult (HCC) Discharge Disposition: Home or Self Care 07/18/2024 Orders Only Department of Oncology in [place], [place] [address] [place] [phone] Tung Walker Malignant Neoplasm Of Bladder (HCC) (Primary Dx) 07/12/2024 3:45 PM CDT Office Visit Department of Urology in [place], [place] [address] [place] [address] Carol Avila APRN, C.NKiera, Terry.N.P., M.S. Urostomy Status Post (HCC) (Primary Dx); Secondary Malignant Neoplasm Lymph Node (HCC); Personal History Of Malignant Neoplasm Of Bladder; Morbid Obesity Body Mass Index 40.0-44.9 Adult (HCC) 07/12/2024 1:15 PM CDT Procedure visit Department of Urology in [place], [place] [address] [place] [address] Angelica Hameed P.A.-C., M.S. Cathy Mcmullen R.N., JASONN Conduit Ileal (HCC) 07/12/2024 Orders Only Department of Oncology in [place], [place] [address] [place] [address] Izabella Garza M.D. 07/11/2024 Documentation Department of Urology in [place], [place] [address] [place] [address] Carol Avila APRN, C.N.P., Terry.N.PLiliana, M.S. 07/08/2024 8:39 AM CDT - 07/08/2024 11:46 AM CDT Hospital Encounter Department of Radiology, [facility], in [place], [place] [address] [place] [address] betseyCarol APRN, C.NLilianaPLiliana, D.N.P., M.S. Personal History Of Malignant Neoplasm Of Bladder; Localized Enlarged Lymph Nodes Discharge Disposition: Home or Self Care 07/08/2024 Results Follow-Up Department of Urology in [place], [place] [address] [place] [address] Carol Avila APRN, C.N.PLiliana, D.N.P., M.S. CT Lymph Node Biopsy, Cytology Fine Needle Aspiration (including core biopsies) 07/07/2024 12:15 PM CDT Clinical Communication Virtual Review in [place], [place] [address] [place] [address] Pre-visit Intake 07/01/2024 Orders Only Department of Radiology, [facility], in [place], [place] [address] [place] [phone] Harjeet Figueredo R.N. Malignant Neoplasm Of Bladder (HCC) (Primary Dx) 06/24/2024 3:30 PM CDT Office Visit Department of Urology in [place], [place] [address] [place] [phone] Barby Ojeda APRN, Mendy.N.P., M.S.N. Carol Avila APRN, C.N.PLiliana, D.N.P., M.S. Personal History Of Malignant Neoplasm Of Bladder (Primary Dx); Localized Enlarged Lymph Nodes; Urostomy Status Post (HCC) 06/24/2024 1:15 PM CDT Procedure visit Department of Urology in [place], [place] [address] [place] [phone] Rocky Troncoso, KAELAS, P.A.-C. Evelyn Hernández, R.N., COCN Conduit Ileal (HCC) (Primary Dx); Malignant Neoplasm Of Bladder (HCC) 06/24/2024 9:33 AM CDT - 06/24/2024 11:59 PM CDT Hospital Encounter Department of Radiology, [facility], in [place], [place] [address] [place] [phone] Barby Ojeda APRN, C.N.P., M.S.N. Malignant Neoplasm Of Bladder (HCC) Discharge Disposition: Home or Self Care 06/24/2024 7:45 AM CDT Lab Department of Urology in [address] [phone] Barby Ojeda APRN, C.N.P., M.S.N. Monika Peña, R.N. Malignant Neoplasm Of Bladder (HCC) 06/24/2024 6:41 AM CDT - 06/24/2024 9:32 AM CDT Hospital Encounter Department of Laboratory Medicine and Pathology, [facility], in [place], [place] [address] [place] [phone] Barby Ojeda APRN, C.N.P., M.S.N. Malignant Neoplasm Of Bladder (HCC) Discharge Disposition: Home or Self Care 06/24/2024 Results Follow-Up Department of Urology in [place], [place] [address] [place] [phone] Austin, Carol, JALEESA, C.N.P., D.N.P., M.S. CT Urogram without and with IV Contrast 06/21/2024 11:15 AM CDT Clinical Communication Virtual Review in [place], [place] [address] [place] [address] Pre-visit Intake 06/20/2024 CPAP Download Remote Patient Monitoring [facility] [address] [place] [address] [facility], ProviderMD from Last 3 Months Immunizations Immunization Administration Dates Next Due Influenza high dose QV(65 years or older) (PF) 0 12/07/2019 SARS-COV-2 (COVID-19) - PFIZ ER (Discontinued)(12 years or older) 01/04/2021,06/16/2020 Family History Medical History Relation Name Comments Coronary artery disease Brother Freddy Baugh Sten ts, 2021 Hyperlipidemia Brother Freddy Baugh Hypertension Brother Freddy Baugh Kidney disease Brother Freddy Baugh Prostate cancer Brother Freddy Baugh Twin brother stroke and heart attack age 72 Stroke Brother Freddy Baugh Prostate cancer Father Sedrick Baugh Mother early 50s of stomach cancer Other cancer Mother Corrine Baugh unknown cancer, stomach area, liver? Hyperlipidemia Sister Lyndsay Eliel Hypertension Sister Lyndsay Eliel Other cancer Sister Lyndsay Eliel 2021, hear t attack Prostate cancer Sister Lyndsay Eliel in 2022 of aneurism Relation Name Status Comments Brother Freddy Baugh Father Sedrick Baugh Mother Corrine Baugh Sister Lyndsay Eliel Social History Tobacco Use Types Packs/Day Years Used Date Smoking Tobacco: Former Cigarettes 1 20 0 04/22/1959 - 04/22/1989 Passive Smoke Exposure: Past Smokeless Tobacco: Never Alcohol Use Standard Drinks/Week Comments Yes 6 (1 standard drink = 0.6 oz pur e alcohol) Light social drinker [facility] Utilities Answer Date Recorded [...] How often do you attend chur or alevism services? Patient declined 05/28/2022 Do you belong [...] and heating? Not very hard 09/05/2022 [facility] [place] [facility] - Occupational Stress [...] AM CDT Legal Sex Male 3:35 PM CONTROL ROOM TENDER Gender Identity Male 04/11/2018 8:29 AM CONTROL ROOM TENDER Sexual Orientation Straight 04/11/2018 8: 29 AM CONTROL ROOM TENDER Last Filed Vital Signs Vital Sign Reading [...] Mass Index 35.18 09/07/2024 6:48 PM CDT Plan of Treatment Upcoming Encounters Date Type Department Care Team (Late st Contact Info) Description 09/16/2024 7:10 AM CDT Appointment Department of Laboratory Medicine and Pathology, [place], [place] [address] [place] [phone] Tanya Herrmann P.A.-C. [address] [place] [phone] 09/16/2024 9:00 AM CDT Office Visit Department of Oncology in [place], [place] [address] [place] [phone] Tanya Herrmann P.A.-C. [address] [place] [phone] 09/22/2024 8:40 AM CDT Appointment Department of Laboratory Medicine and Pathology, [place], [place] [address] [place] [phone] Tanya Herrmann P.A.-C. [address] [place] [phone] 09/22/2024 10:40 AM CDT Office Visit Department of Oncology in [place], [place] [address] [place] [phone] Holley Monsalve APRN, C.N.P. [address] [place] [phone] 09/22/2024 11:20 AM CDT Office Visit Department of Oncology in [place], [place] [address] [place] [phone] Izabella Garza M.D. [address] [place] [phone] 09/22/2024 1:00 PM CDT Comprehensive Visit Department of Cardiovascular Medicine in [place], [place] [address] [place] [phone] Tanya Dang APRN, C.N.PLiliana, D.N.P. [address] [place] [phone] 10/10/2024 2:30 PM CDT Clinical Communication Virtual Review in [place], [place] [address] [place] [address] 10/11/2024 8:10 AM CDT Appointment Department of Laboratory Medicine and Pathology, [facility], in [place], [place] [address] [place] [phone] Soha Huggins, P.A.-C. [address] [place] [phone] 10/11/2024 9:00 AM CDT Appointment Department of Radiology, [facility], in [place], [place] [address] [place] [phone] Soha Huggins, P.A.-C. [address] [place] [phone] 10/11/2024 3:40 PM CDT Office Visit Department of Oncology in [place], [place] [address] [place] [phone] Casimiro Chavez M.D., Ph.D. [address] [place] [phone] 11/22/2024 1:00 PM CDT Comprehensive Visit Department of Neurology in [place], [place] [address] [place] [phone] Sandy Nicholson M.D., Ph.D. [address] [place] [phone] Health Maintenance Due Date Last Done Comments Depression Screening (Annual PHQ-2) 04/13/2024 COVID-19 Vaccine (6 - Pfizer risk season) 2024 12/31/2023, 12/26/2021, 07/09/2021, Additional history exists Office Visit for Blood Pressure Check / Re-check 11/12/2024 08/12/2024 Creatinine Level (Kidney Function Test) 09/15/2025 09/15/2024, 09/14/2024, 09/13/2024, Additional history exists Potassium Level 09/15/2025 09/15/2024, 06/0 07/2024, 09/13/2024, Additional history exists Sodium Level 09/15/2025 09/15/2024, 06/0 07/2024, 09/13/2024, Additional history exists DTaP,Tdap,and Td Vaccines (3 [...] this topic Medical Devices Implanted Type Area Event Av Operator Device Identifier Shelf Expiration Date Model / Serial / Lot Clp Hrzn Ti 6 Clp Md Lorne - [id number] Implanted:Qty: 1 on 10/13/2022 by Tam Stoddard M.D. at [facility] Hardware e.g. pins/screws/ rods [employer] [id number] / / Clp Hrzn Ti 6 Clp Md Lorne - [id number] Implanted:Qty: 1 on 10/13/2022 by Tam Stoddard M.D. at [facility] Hardware e.g. pins/screws/ rods [employer] [id number] / / Clp Hrzn Ti 6 Clp Sm Red - [id number] Implanted:Qty: 1 on 10/13/2022 by Tam Stoddard M.D. at [facility] Hardware e.g. pins/screws/ rods [employer] [id number] / / Clp Hrzn Ti 6 Clp Sm Red - [id number] Implanted:Qty: 1 on 10/13/2022 by Tam Stoddard M.D. at [facility] Hardware e.g. pins/screws/ rods [employer] [id number] / / Stent Uret Single J 7 X 90cm - [id number] Implanted:Qty: 1 on 05/29/2011 Ureteral Stent Other/Legacy - See Implant Description Description:Device Manufactu rer - [employer]. Device Status Text - [id number]. Explanted Type Area Event Av Operator Device Identifier Shelf Expiration Date Model / Serial / Lot Filter [place] Vena Cava- Jugular - [id number] Implanted:Qty: 1 on 06/23/2011 Explanted:2011 (Quantity not on file) Vascular or IVC Filter Right: Chest C.[employer].Bard Description:Device Manufactu rer - Bard Access. Device Status Text - [id number]. Procedures Procedure Name Priority Date/Time Associated Diagnosis Comments ECG AMBULATORY REAL TIME CARDIAC MONITORING - [facility] Routine 09/15/2024 2:01 PM CDT Myositis [M60.9] Myositis 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 Or Unspecified Chronic Kidney Disease Personal History Of Malignant Neoplasm Of Bladder TROPONIN I, HIGH SENSITIVITY, P Routine 09/15/2024 8:30 AM CDT CREATINE KINASE (CK), S Routine 09/15/2024 8:30 AM CDT BASIC METABOLIC PANEL, S/P Routine 09/15/2024 8:30 AM CDT CBC WITH DIFFERENTIAL, B Routine 09/15/2024 8:30 AM CDT TROPONIN T, 5TH GEN, P Routine 09/15/2024 8:30 AM CDT ADULT OXYGEN THERAPY Routine 09/14/2024 8:00 AM CDT CREATINE KINASE (CK), S Routine 09/14/2024 7:04 AM CDT BASIC METABOLIC PANEL, S/P Routine 09/14/2024 7:04 AM CDT TROPONIN I, HIGH SENSITIVITY, P Routine 09/14/2024 7:04 AM CDT CBC WITH DIFFERENTIAL, B Routine 09/14/2024 7:04 AM CDT TROPONIN T, 5TH GEN, P Routine 09/14/2024 7:04 AM CDT ADULT OXYGEN [...] PANEL, S/P Routine 09/11/2024 8:12 AM CDT RESPIRATORY MECHANICS Routine 09/11/2024 8:00 AM CDT ADULT OXYGEN THERAPY Routine 09/11/2024 8:00 AM CDT ADULT OXYGEN THERAPY Routine 09/10/2024 8:00 PM CDT ECG STAT 09/10/2024 7:44 PM CDT RESPIRATORY MECHANICS Routine 09/10/2024 8:00 AM CDT ADULT OXYGEN THERAPY Routine 09/10/2024 8:00 AM CDT CBC WITH DIFFERENTIAL, B Routine 09/10/2024 7:44 AM CDT CREATINE KINASE (CK), S Routine 09/10/2024 7:44 AM CDT TROPONIN T, 5TH GEN, P Routine 09/10/2024 7:44 AM CDT BASIC METABOLIC PANEL, S/P Routine 09/10/2024 7:44 AM CDT ADULT OXYGEN THERAPY Routine 09/09/2024 8:01 PM CDT TROPONIN I, HIGH SENSITIVITY, P Timed 09/09/2024 12:43 PM CDT CBC WITHOUT DIFFERENTIAL, B Routine 09/09/2024 10:19 AM CDT HEPATIC FUNCTION PANEL, S Routine 09/09/2024 10:19 AM CDT BASIC METABOLIC PANEL, S/P Routine 09/09/2024 10:19 AM CDT TROPONIN T, 5TH GEN, P Routine 09/09/2024 10:19 AM CDT CREATINE KINASE (CK), S Routine 09/09/2024 10:19 AM CDT RESPIRATORY MECHANICS Routine 09/09/2024 9:04 AM CDT ADULT OXYGEN THERAPY Routine 09/09/2024 8:01 AM CDT ADULT OXYGEN THERAPY Routine 09/08/2024 8:01 PM CDT MR CARDIAC WITHOUT AND WITH IV CONTRAST RAD - Routine (most inpatients and all outpatients) 09/08/2024 2:52 PM CDT BACTERIAL CULTURE, AEROBIC + SUSC, URINE Routine 09/08/2024 12:16 PM CDT ALDOLASE, S Timed 09/08/2024 12:12 PM CDT TROPONIN T, 5TH GEN, P Timed 09/08/2024 12:12 PM CDT BASIC METABOLIC PANEL, S/P Timed 09/08/2024 12:12 PM CDT CBC WITHOUT DIFFERENTIAL, B Timed 09/08/2024 12:12 PM CDT CREATINE KINASE (CK), S Timed 09/08/2024 12:12 PM CDT TROPONIN I, HIGH SENSITIVITY, P Timed 09/08/2024 12:12 PM CDT EMG Routine 09/08/2024 8:11 AM CDT ADULT OXYGEN THERAPY Routine 09/08/2024 8:01 AM CDT RESPIRATORY MECHANICS Routine 09/08/2024 7:44 AM CDT RESPIRATORY MECHANICS Routine 09/08/2024 7:44 AM CDT RESPIRATORY MECHANICS Routine 09/08/2024 7:44 AM CDT THYROID FUNCTION CASCADE, S Routine 09/08/2024 1:48 AM CDT CREATINE KINASE (CK), S Routine 09/08/2024 1:48 AM CDT BASIC METABOLIC PANEL, S/P Routine 09/08/2024 1:48 AM CDT CBC WITHOUT DIFFERENTIAL, B Routine 09/08/2024 1:48 AM CDT TROPONIN T, 6H, 5TH GEN, P Timed 09/08/2024 1:48 AM CDT HEMOGLOBIN A1C, B Routine 09/08/2024 1:4 5 AM CDT TROPONIN T, 2H/6H REFLEX, 5TH GEN, P Timed 09/07/2024 9:42 PM CDT DIPSTICK, U Routine 09/07/2024 9:12 PM CDT HC OSMOLALITY ASSAY URINE Routine 09/07/2024 9:12 PM CDT MICROSCOPIC MANUAL Routine 09/07/2024 9: 12 PM CDT PH, RANDOM, U Routine 09/07/2024 9:12 PM CDT URINALYSIS WITH MICROSCOPIC Routine 09/07/2024 9:12 PM CDT ADULT OXYGEN THERAPY Routine 09/07/2024 8:01 PM CDT MUSCLE-SPECIFIC KINASE (MUSK) AUTOAB, S STAT 09/07/2024 7:31 PM CDT MG EVALUATION WITH MUSK REFLEX, S STAT 09/07/2024 7:31 PM CDT CBC WITH DIFFERENTIAL, B STAT 09/07/2024 7:31 PM CDT COMPREHENSIVE METABOLIC PANEL, S/P STAT 09/07/2024 7:31 PM CDT NECROTIZING MYOPATHY EVALUATION, S STAT 09/07/2024 7:31 PM CDT TROPONIN T, BASELINE, 5TH GEN, P STAT 09/07/2024 7:31 PM CDT CREATINE KINASE (CK), S STAT 09/07/2024 7:31 PM CDT ECG Timed 09/07/2024 7:25 PM CDT RESPIRATORY MECHANICS Routine 09/07/2024 7:23 PM CDT ADULT OXYGEN THERAPY Routine 09/07/2024 7:00 PM CDT ADULT OXYGEN THERAPY Routine 09/07/2024 7:00 PM CDT OUTSIDE US CARD Routine 09/07/2024 12:00 AM CDT COMPREHENSIVE METABOLIC PANEL, S/P Routine 08/12/2024 8:07 AM CDT Malignant Neoplasm Of Bladder (HCC) CBC CHEMO - NO ALERTS Routine 08/12/2024 8:07 AM CDT Malignant Neoplasm Of Bladder (HCC) [facility] ORDER, B Routine 08/05/2024 5:54 PM CDT Malignant Neoplasm Of Bladder (HCC) [facility] ORDER, U Routine 08/05/2024 11:02 AM CDT Malignant Neoplasm Of Bladder (HCC) [place] T4 FREE Routine 08/05/2024 10:52 AM CDT THYROPEROXIDASE (TPO) ABS, S Routine 08/05/2024 10:52 AM CDT [facility] ORDER, B Routine 08/05/2024 10:52 AM CDT Malignant Neoplasm Of Bladder (HCC) [facility] ORDER, B Routine 08/05/2024 10:52 AM CDT Malignant [...] Personal History Of Malignant Neoplasm Of Bladder [facility] ORDER, B Routine 07/18/2024 2:37 PM CDT Malignant [...] CDT Malignant Neoplasm Of Bladder (HCC) CYTOLOGY NON-ELECTRONIC SENSING EQUIPMENT ASSEMBLER Routine 06/24/2024 8:07 AM CDT Malignant Neoplasm Of Bladder (HCC) VITAMIN B12 ASSAY, S Routine 06/24/2024 7:05 AM CDT Malignant Neoplasm Of Bladder (HCC) CBC WITH DIFFERENTIAL, B Routine 06/24/2024 7:05 AM CDT Malignant Neoplasm Of Bladder (HCC) BASIC METABOLIC PANEL, S/P Routine 06/24/2024 7:05 AM CDT Malignant Neoplasm Of Bladder (HCC) from Last 3 Months Results * (ABNORMAL) Troponin I, High Sensitivity (09/15/2024 8:30 AM CDT) Only the most recent of5 resultswithin the time period is included. Pathologist [facility] TROPONIN I, HIGH SENSITIVITY, P 71(H) <=20 ng/L 09/15/2024 1:40 PM CDT DTL Blood (Blood, Venous) 09/15/2024 8:30 AM CDT 09/15/2024 9:58 AM CDT us Anna Wilson P.A.-C. LAB BLOOD NON ADD-ON Final Result [facility] [address] [place] [address], [place] [facility] [address] [place] [address] * (ABNORMAL) CBC with Differential, Blood (09/15/2024 8:30 AM CDT) Only the most recent of9 resultswithin the time period is included. Pathologist [facility] Hemoglobin 12.0(L) 13.2 - 16.6 g/dL 09/15/2024 [...] 8:30 AM CDT 09/15/2024 9:11 AM CDT Kaitlin Cummings APRN, C.N.P., M.S.N. LAB BLOOD A DD-ON Final Result [facility] [address] [place] [address], [place] D[place] [facility] [address] [place] [address] * (ABNORMAL) Troponin T, 5th Generation (09/15/2024 8:30 AM CDT) Only the most recent of8 resultswithin the time period is included. Troponin T, 5th gen 440(H) <=15 ng/L 09/15/2024 8:53 AM CDT STMA Comment:Consider acute myoca rdial injury Blood (Blood, Venous) 09/15/2024 8:30 AM CDT 09/15/2024 8:37 AM CDT Kaitlin Cummings APRN, C.N.P., M.S.N. LAB BLOOD A DD-ON Final Result Performing Organization Address [facility] Co de Phone Number [address] [place] [address] * CK (Creatine Kinase) (09/15/2024 8:30 AM CDT) Only the most recent of10 resultswithin the time period is included. Creatine Kinase (CK), S 87 39 - 308 U/L 09/15/2024 10:21 AM CDT DTL Blood (Blood, Venous) 09/15/2024 8:30 AM CDT 09/15/2024 9:59 AM CDT Matt Cooper P.A.-C., M.S. LAB BLOOD ADD-ON Fi nal Result Performing Organization Address [facility] Co de Phone Number [address] [place] [address] * (ABNORMAL) Basic Metabolic Panel (09/15/2024 8:30 AM CDT) Only the most recent of10 resultswithin the time period is included. Potassium, S 4.3 3.6 - 5.2 mmol/L [...] 8:30 AM CDT 09/15/2024 9:59 AM CDT Matt Cooper P.A.-C., M.S. LAB BLOOD ADD-ON Fi nal Result Performing Organization Address City/[facility]/[place] [address] * Uric Acid (09/12/2024 7:46 AM CDT) Uric Acid, S 6.8 3.7 - 8.0 mg/dL 09/12/2024 2:59 PM CDT DTL Blood (Blood, Venous) 09/12/2024 7:46 AM CDT 09/12/2024 2:03 PM CDT Matt Cooper P.A.-C., M.S. LAB BLOOD ADD-ON Fi nal Result Performing Organization Address City/[facility]/[place] [address] * ECG 12 Lead (09/10/2024 7:44 PM CDT) Only the most recent of2 resultswithin the time period is included. Ventricular Rate ECG/Min 62 BPM MUSE TN Interval 200 ms MUSE QRSD Interval 118 ms MUSE QT Interval 456 ms MUSE QTC Interval 462 ms MUSE P Funk 60 degrees MUSE R Funk 15 degrees MUSE T Wave Funk 66 degrees MUSE 09/10/2024 7:44 PM CDT [...] change was found Reviewed by MÓNICA Araiza us Matt Cooper P.A.-C., M.S. ECG ORDERABLES Fin al Result MUSE NA * (ABNORMAL) Hepatic Function Panel (09/09/2024 10:19 [...] 10:19 AM CDT 09/09/2024 10:58 AM CDT Matt Cooper P.A.-C., M.S. LAB BLOOD ADD-ON Fi nal Result [facility] [address] [place] [address], [place] [facility] [address] [place] [address] * (ABNORMAL) CBC without Differential (09/09/2024 10:19 AM CDT) Only the most recent of4 resultswithin the time period is included. Pathologist [facility] Hemoglobin 12.8(L) 13.2 - 16.6 g/dL 09/09/2024 [...] 10:19 AM CDT 09/09/2024 10:51 AM CDT Matt Cooper P.A.-C. M.S. LAB BLOOD ADD-ON Fi nal Result [facility] [address] [place] [address], [place] DTL [facility] [address] [place] [address] * MR Cardiac without and with IV [...] systolic function of the right ventricle. [id number] Matt Cooper P.A.-C. M.S. IMG MRI PROCEDURES Final Result * (ABNORMAL) Bacterial Culture, Aerobic + Susceptibility, Urine (09/08/2024 12:16 PM CDT) Urine Culture Multiple organisms >10,000 cfu/mL present suggesting probable contamination (A) 09/10/2024 7:55 AM CDT DTL Urine (Urine, Stoma) 09/08/2024 12:16 PM CDT 09/08/2024 1:56 PM CDT Comment:Specimen Source Site : Urine Matt Cooper P.A.-C. M.S. LAB MICROBIOLOGY - GENERAL ORDERABLES Final Result Performing Organization Address [facility] de Phone Number [facility] [address] [facility] [address] [place] [address] * (ABNORMAL) Aldolase (09/08/2024 12:12 PM CDT) Pathologist [facility] Aldolase, S 31.4(H) <7.7 U/L 09/08/2024 2:04 PM CDT DTL Comment: ----ADDITIONAL INFORMATION---- This test has been modified from the mill order scheduler's instructions. Its performance characteristics were determined by [facility] in a manner consistent with CLIA requirements. This test has not been cleared or approved by the U.S. Food and Drug Administration. Blood (Blood, Venous) 09/08/2024 12:12 PM CDT 09/08/2024 1:26 PM CDT Shanita Velarde APRN C.N.P., M.S.N. LAB BLOOD N ON ADD-ON Final Result Performing Organization Address City/[facility]/ZIP Co de Phone Number [facility] [address] [place] [address], [place] D[place] [facility] [address] [place] [address] * EMG (09/08/2024 8:11 AM CDT) 09/08/2024 8:00 AM CDT Narrative EMG - 09/08/2024 10:13 AM CDT Table formatting from the original result was not included. 08-Sep-2024 Electromyography Final Report Study Number: 3 EMG Food And Beverage Assistant: Mague Alvarez [phone] or [phone] Referred by: MATT COOPER ([phone] or [phone]) Referred for: MG Referral Code: 101 RX: [...] axonal peripheral neuropathy. Melida Alvarez (127 or [phone])/SMB NERVE CONDUCTIONS Record Rep Normal Normal Distal [...] Electromyography Final Report Study Number: 3 EMG Food And Beverage Assistant: Mague Alvarez [phone] or [phone] Referred by: MATT COOPER (127 or [phone]) Referred for: MG Referral Code: 101 RX: [...] fiber axonal peripheralneuropathy. Melida Alvarez (127 or [phone])/SMB NERVE CONDUCTIONS Record Rep Normal Normal Distal [...] Alvarez M.D. at 09/08/2024 10:15:23 AM CDT Matt Cooper P.A.-C., M.S. NEUROLOGY ORDERABLE S Edited Result - Final [facility] * (ABNORMAL) Troponin T, 6h, 5th Gen (09/08/2024 1:48 AM CDT) Troponin T, 6 hr, 5th gen 496(H) <=15 ng/L 09/08/2024 2:27 AM CDT DTL Comment:Consider acute myoca rdial injury 6H Delta CANCELED 09/08/2024 2:07 AM CDT DTL Comment:Result canceled by joey garcia. 6H Delta % -9 % 09/08/2024 2:27 AM CDT DTL 6H Delta Interp Not Changing 09/08/2024 2:27 AM CDT DTL Blood 09/08/2024 1:48 AM CDT 09/08/2024 1:55 AM CDT Mattyessenia Cooper P.A.-C. M.S. LAB BLOOD TROPONIN Final Result Performing Organization Address City/[facility]/ZIP Co de Phone Number [facility] [address] [place] [address] * Thyroid Function Farley (09/08/2024 1:48 AM CDT) Only the most recent of2 resultswithin the time period is included. Pathologist [facility] TSH, Sensitive 1.5 0.3 - 4.2 mIU/L 09/08/2024 9:56 AM CDT DT Blood (Blood, Venous) 09/08/2024 1:48 AM CDT 09/08/2024 9:13 AM CDT Matt Cooper P.A.-C., M.S. LAB BLOOD ADD-ON Fi nal Result Performing Organization Address City/[facility]/ZIP Co de Phone Number [facility] [address] [place] [address] * Hemoglobin A1c (09/08/2024 1:45 AM CDT) [facility] Hemoglobin A1c, B 5.3 4.0 - 5.6 % 09/08/2024 9:14 AM CDT DT Blood (Blood, Venous) 09/08/2024 1:45 AM CDT 09/08/2024 9:04 AM CDT Matt Cooper P.A.-C., M.S. LAB BLOOD ADD-ON Fi nal Result Performing Organization Address City/[facility]/[place] [address] * (ABNORMAL) Troponin T, 2 Hour with 6 Hour Reflex, 5th Gen (09/07/2024 9:42 PM CDT) Pathologist [facility] Troponin T, 2 hr, 5th gen 528(H) <=15 ng/L 09/07/2024 10:09 PM CDT [facility] Comment:Consider acute myoca rdial injury 2H Delta % -3 % 09/07/2024 10:09 PM CDT [facility] Comment:6 hour collection pe nding. 2H Delta Interp Not Changing 09/07/2024 10:09 PM CDT [facility] Blood 09/07/2024 9:42 PM CDT 09/07/2024 9:48 PM CDT Matt Cooper P.A.-C., M.S. LAB BLOOD TROPONIN Final Result Performing Organization Address City/[facility]/ZIP Co de Phone Number [facility] [address] STMA [facility] [address] [place] [address] * Osmolality, Urine (09/07/2024 9:12 PM CDT) [facility] Osmolality, U 446 150 - 1150 mOsm/kg 09/07/2024 10:18 PM CDT DTL Urine 09/07/2024 9:12 PM CDT 09/07/2024 9:55 PM CDT Griselda Medina P.A.-C. LAB URINE ORDERABLES Final Result Performing Organization Address City/[facility]/ZIP Co de Phone Number [facility] [address] DTL [facility] [address] [place] [address] * (ABNORMAL) Dipstick, Urine (09/07/2024 9:12 PM CDT) [facility] Hemoglobin, QL, U Large(A) Negative 09/07/2024 10:01 [...] URINE ORDERABLES Final Result Performing Organization Address City/[facility] Co de Phone Number [facility] [address] [place] [address], [facility] [address] [place] [address] * pH, Random, Urine (09/07/2024 9:12 PM CDT) pH, Random, U 5.8 4.5 - 8.0 09/07/2024 10:18 PM CDT DTL Urine 09/07/2024 9:12 PM CDT 09/07/2024 9:55 PM CDT Griselda Medina P.A.-C. LAB URINE ORDERABLES Final Result Performing Organization Address [facility] de Phone Number [facility] [address] [place] [address], [facility] 200 [place] [address] * (ABNORMAL) Microscopic Manual (09/07/2024 9:12 PM [...] URINE ORDERABLES Final Result Performing Organization Address [facility] Co de Phone Number [facility] [address] [place] [address], [facility] [address] [place] [address] * (ABNORMAL) Urinalysis, with Microscopic: Urine, Stoma [...] URINE ORDERABLES Final Result Performing Organization Address [facility]/ZIP Co de Phone Number [facility] [address] [place] [address], [place] [facility] [address] [place] [address] * Myasthenia Gravis Evaluation with MuSK Reflex (09/07/2024 7:31 PM CDT) MG with MuSK Interpretation, S see below 09/14/2024 9:10 AM CDT DTL Comment: No informative autoantibodies were detected. A negative result does not exclude a diagnosis of autoimmune myasthenia gravis. Acetylcholine Binding Antibody 0.00 <=0.02 nmol/L 09/14/2024 9:10 AM CDT DTL Comment: ----ADDITIONAL INFORMATION---- This test was developed and its performance characteristics determined by [facility] in a manner consistent with CLIA requirements. This test has not been cleared or approved by the U.S. Food and Drug Administration. Blood (Blood, Venous) 09/07/2024 7:31 PM CDT 09/08/2024 8:37 AM CDT Matt Cooper P.A.-C., M.S. LAB BLOOD NON ADD-O N Final Result Performing Organization Address City/State/[facility] Co de Phone Number [facility] [address] D[address] [facility] [address] [place] [address] * Necrotizing Myopathy Evaluation (09/07/2024 7:31 PM CDT) Pathologist [facility] Necrotizing Myopathy Interp, S see below 09/14/2024 8:25 AM CDT DTL Comment: A negative result does not exclude the clinical diagnosis of necrotizing autoimmune myopathy (NAM). Muscle biopsy should be considered if clinically indicated. REFERENCES 1. EDY Neurol. 2015;72(9):996-1003. (PMID: 91839343) 2. J Immunol Res. 2014;2014:386639. (PMID: 06605921) 3. Brain. 2016; 139(Pt 8):2131-5. (PMID: 24581389) HMG-CoA Reductase Ab, S <20.0 <20.0 CU 09/14/2024 8:25 AM CDT DTL SRP IFA Screen, S Negative Negative 8:25 AM CDT DTL Comment: ----ADDITIONAL INFORMATION---- This test was developed and its performance characteristics determined by [facility] in a manner consistent with CLIA requirements. This test has not been cleared or approved by the U.S. Food and Drug Administration. Blood (Blood, Venous) 09/07/2024 7:31 PM CDT 09/08/2024 8:37 AM CDT Matt Cooper P.A.-C. M.S. LAB BLOOD NON ADD-O N Final Result Performing Organization Address City/[facility]/ZIP Co de Phone Number [facility] [address] [place] [address] * (ABNORMAL) Troponin T, Baseline with 2 Hour/6 Hour Reflex Biomarker Panel (09/07/2024 7:31 PM CDT) Troponin T, Baseline, 5th gen 543(H) <=15 ng/L 09/07/2024 8:40 PM CDT [facility] Comment:Consider acute myoca rdial injury Blood (Blood, Venous) 09/07/2024 7:31 PM CDT 09/07/2024 8:19 PM CDT Matt Cooper P.A.-C. M.S. LAB BLOOD TROPONIN Final Result Performing Organization Address [facility] de Phone Number [facility] [address] [address] * Muscle-Specific Kinase (MuSK) Autoantibody (09/07/2024 7:31 PM CDT) MuSK Autoantibody, S 0.00 0.00 - 0.02 nmol/L 09/13/2024 8:01 PM CDT DT Comment: ----ADDITIONAL INFORMATION---- This test was developed using an analyte specific reagent. Its performance characteristics were determined by [facility] in a manner consistent with CLIA requirements. This test has not been cleared or approved by the U.S. Food and Drug Administration. Blood 09/07/2024 7:31 PM CDT 09/08/2024 8:37 AM CDT Matt Cooper P.A.-C. M.S. LAB BLOOD ADD-ON Fi nal Result [facility] [address] [place] [address], [place] D[place] [address] [facility] [address] [place] [address] * (ABNORMAL) Comprehensive Metabolic Panel (09/07/2024 7:31 PM CDT) Only the most recent of4 resultswithin the time period is included. Potassium, S 4.1 3.6 - 5.2 mmol/L [...] 7:31 PM CDT 09/07/2024 8:43 PM CDT Matt Cooper P.A.-C., M.S. LAB BLOOD ADD-ON nal Result [facility] [address] [place] [address], [place] D[place] [facility] [address] [place] [address] * Outside US Card (09/07/2024 12:00 AM CDT) 09/07/2024 12:5 7 PM CDT Addenda Addendum by OberScharrer, Outside on 09/07/2024 12:53 PM CDT BELOW REPORT RECEIVED BY [facility] ON 09/07/2024 13:19:47 [id number] [facility] MICHAEL BAUGH : 1940 83 years Study Date: 09/07/2024 10:56:36 AM Gender: M BP: 143/59 mmHg Height: 188.00 cm BSA: 2.52 m?? Weight: 128.00 kg Tech: JAMAL Referring MD: PROVIDER REFERRING Site: [facility] Reading Location: MOBILE IP Patient Location: Inpatient. Procedure: 2D w/ Contrast, Color Doppler and Spectral Doppler. Indication for study: Myocarditis Cardiac Rhythm: Regular.Study quality: Fair. Final Impressions: 1. Normal left ventricular size, normal wall thickness, normal global systolic function, calculated EF of 61 %. 2. Right ventricular cavity size is normal, global systolic RV function is normal. 3. The aortic valve is sclerotic, no stenosis and mild regurgitation. 4. The inferior vena cava is dilated, respiratory size variation greater than 50%. 5. Echo contrast was administered to enhance visualization of all left ventricular segments. Comparison Compared to prior exam of 02/26/2018, there has been no significant change. Chamber Sizes and Function Normal left ventricular size, normal wall thickness, normal global systolic function, calculated EF of 61 %. No resting regional wall motion abnormality visualized. Left atrial size is normal. Right ventricular cavity size is normal, global systolic RV function is normal. The right atrium is normal. Right atrial volume index is 24 ml/m??. The pulmonary artery is of normal size and origin. The sinus of Valsalva is borderline. The ascending aorta is normal sized. Valves, RV Pressures and Diastolic Function The aortic valve is sclerotic, no stenosis and mild regurgitation. The mitral valve is sclerotic, trace mitral regurgitation. Indeterminate pattern of LV diastolic filling. The tricuspid valve is normal in structure, trace tricuspid regurgitation. The pulmonic valve is normal. Trace pulmonary regurgitation. Masses, Effusion, Shunts There is no pericardial effusion. The inferior vena cava is dilated, respiratory size variation greater than 50%. No left to right shunting was detected by limited color flow Doppler interrogation of the interatrial septum. MEASUREMENTS AND CALCULATIONS 2-D Measurements and LV Function: LVID (d) 4.1 cm Planimetered EF 61 % LVID (s) 2.9 cm LV FS% (2D) 29 % IVS (d) 1.1 cm LVOT diameter 2.9 cm LVPW (d) 1.0 cm HR 58 bpm Ao Sinus 4.2 cm LA Vol index 32 ml/m2 Ao Sinus ULN 4.2 cm * RA Vol index 24 ml/m2 Asc Ao 4.1 cm RV Basal Diam 4.4 cm Asc Ao ULN 4.4 cm * RV Mid Diam 3.9 cm * Input BSA and age are outside of ranges, reported values correspond to BSA = 2.1 and Age = 81 Diastology: Mitral Tissue Doppler Pulmonary veins E Peak 0.9 m/s e', Septum 0.06 m/s Pulm s 84.9 cm/s A Peak 1.2 m/s e', Lateral 0.10 m/s Pulm d 41.5 cm/s E/A 0.7 E/e' Average 11.11 Pulm s/d ratio 2.05 DT 486 msec Aortic Valve: Vmax 3.1 m/s PIERRE (V) 2.23 cm?? VTI 0.79 m PIERRE (I) 2.34 cm?? LVOT V max 1.1 m/s Max PG 37 mmHg LVOT VTI 0.29 m Mean PG 21 mmHg SV 184 ml Dim Index 0.36 SV index 73 ml/m?? CO 10.7 l/min CI 4.3 l/min/m?? Mitral Valve: MVA 1.6 cm?? MV P 1/2 141 msec MV Mean G 2 mmHg MV VTI 0.46 m Tricuspid Valve and estimated PA pressures: TAPSE 2.5 cm Contrast documentation: 2cc ml diluted Definity, lot #[id number], [facility]# [id number] was administered in a triple lumen to enhance visualization of all left ventricular segments. . This study was interpreted by an IAC accredited facility. CC: HIM (med records) [facility], Med/Surg - IP [facility]. Final READ BY Placido Venegas RELEASED BY ANTONY Addendum by OberScharrer, Outside on 09/07/2024 12:53 PM CDT BELOW REPORT RECEIVED BY [facility] ON 09/07/2024 13:19:37 [id number] ECHOCARDIOGRAM MICHAEL BAUGH : 1940 83 years Study Date: 09/07/2024 10:56:36 AM Gender: M BP: 143/59 mmHg Height: 188.00 cm BSA: 2.52 m?? Weight: 128.00 kg Tech: JAMAL Referring MD: PROVIDER REFERRING Site: [facility] Reading Location: MOBILE IP Patient Location: Inpatient. Procedure: 2D w/ Contrast, Color Doppler and Spectral Doppler. Indication for study: Myocarditis Cardiac Rhythm: Regular.Study quality: Fair. Final Impressions: 1. Normal left ventricular size, normal wall thickness, normal global systolic function, calculated EF of 61 %. 2. Right ventricular cavity size is normal, global systolic RV function is normal. 3. The aortic valve is sclerotic, no stenosis and mild regurgitation. 4. The inferior vena cava is dilated, respiratory size variation greater than 50%. 5. Echo contrast was administered to enhance visualization of all left ventricular segments. Comparison Compared to prior exam of 02/26/2018, there has been no significant change. Chamber Sizes and Function Normal left ventricular size, normal wall thickness, normal global systolic function, calculated EF of 61 %. No resting regional wall motion abnormality visualized. Left atrial size is normal. Right ventricular cavity size is normal, global systolic RV function is normal. The right atrium is normal. Right atrial volume index is 24 ml/m??. The pulmonary artery is of normal size and origin. The sinus of Valsalva is borderline. The ascending aorta is normal sized. Valves, RV Pressures and Diastolic Function The aortic valve is sclerotic, no stenosis and mild regurgitation. The mitral valve is sclerotic, trace mitral regurgitation. Indeterminate pattern of LV diastolic filling. The tricuspid valve is normal in structure, trace tricuspid regurgitation. The pulmonic valve is normal. Trace pulmonary regurgitation. Masses, Effusion, Shunts There is no pericardial effusion. The inferior vena cava is dilated, respiratory size variation greater than 50%. No left to right shunting was detected by limited color flow Doppler interrogation of the interatrial septum. MEASUREMENTS AND CALCULATIONS 2-D Measurements and LV Function: LVID (d) 4.1 cm Planimetered EF 61 % LVID (s) 2.9 cm LV FS% (2D) 29 % IVS (d) 1.1 cm LVOT diameter 2.9 cm LVPW (d) 1.0 cm HR 58 bpm Ao Sinus 4.2 cm LA Vol index 32 ml/m2 Ao Sinus ULN 4.2 cm * RA Vol index 24 ml/m2 Asc Ao 4.1 cm RV Basal Diam 4.4 cm Asc Ao ULN 4.4 cm * RV Mid Diam 3.9 cm * Input BSA and age are outside of ranges, reported values correspond to BSA = 2.1 and Age = 80 Diastology: Mitral Tissue Doppler Pulmonary veins E Peak 0.9 m/s e', Septum 0.06 m/s Pulm s 84.9 cm/s A Peak 1.2 m/s e', Lateral 0.10 m/s Pulm d 41.5 cm/s E/A 0.7 E/e' Average 11.11 Pulm s/d ratio 2.05 DT 486 msec Aortic Valve: Vmax 3.1 m/s PIERRE (V) 2.23 cm?? VTI 0.79 m PIERRE (I) 2.34 cm?? LVOT V max 1.1 m/s Max PG 37 mmHg LVOT VTI 0.29 m Mean PG 21 mmHg SV 184 ml Dim Index 0.36 SV index 73 ml/m?? CO 10.7 l/min CI 4.3 l/min/m?? Mitral Valve: MVA 1.6 cm?? MV P 1/2 141 msec MV Mean G 2 mmHg MV VTI 0.46 m Tricuspid Valve and estimated PA pressures: TAPSE 2.5 cm Contrast documentation: 2cc ml diluted Definity, lot #[id number], [facility]# [id number] was administered in a triple lumen to enhance visualization of all left ventricular segments. . This study was interpreted by an IAC accredited facility. CC: [facility] (med records) [facility], Med/Surg - IP [facility]. Final READ BY Placido Venegas RELEASED BY ANTONY Addendum by OberScharrer, Outside on 09/07/2024 12:53 PM CDT BELOW REPORT RECEIVED BY [facility] ON 09/07/2024 13:18:40 [id number] ECHOCARDIOGRAM MICHAEL BAUGH : 1940 83 years Study Date: 09/07/2024 10:56:36 AM Gender: M BP: 143/59 mmHg Height: 188.00 cm BSA: 2.52 m?? Weight: 128.00 kg Tech: JAMAL Referring MD: PROVIDER REFERRING Site: [facility] Reading Location: MOBILE IP Patient Location: Inpatient. Procedure: 2D w/ Contrast, Color Doppler and Spectral Doppler. Indication for study: Myocarditis Cardiac Rhythm: Regular.Study quality: Fair. Final Impressions: 1. Normal left ventricular size, normal wall thickness, normal global systolic function, calculated EF of 61 %. 2. Right ventricular cavity size is normal, global systolic RV function is normal. 3. The aortic valve is sclerotic, no stenosis and mild regurgitation. 4. The inferior vena cava is dilated, respiratory size variation greater than 50%. 5. Echo contrast was administered to enhance visualization of all left ventricular segments. Comparison Compared to prior exam of 02/26/2018, there has been no significant change. Chamber Sizes and Function Normal left ventricular size, normal wall thickness, normal global systolic function, calculated EF of 61 %. No resting regional wall motion abnormality visualized. Left atrial size is normal. Right ventricular cavity size is normal, global systolic RV function is normal. The right atrium is normal. Right atrial volume index is 24 ml/m??. The pulmonary artery is of normal size and origin. The sinus of Valsalva is borderline. The ascending aorta is normal sized. Valves, RV Pressures and Diastolic Function The aortic valve is sclerotic, no stenosis and mild regurgitation. The mitral valve is sclerotic, trace mitral regurgitation. Indeterminate pattern of LV diastolic filling. The tricuspid valve is normal in structure, trace tricuspid regurgitation. The pulmonic valve is normal. Trace pulmonary regurgitation. Masses, Effusion, Shunts There is no pericardial effusion. The inferior vena cava is dilated, respiratory size variation greater than 50%. No left to right shunting was detected by limited color flow Doppler interrogation of the interatrial septum. MEASUREMENTS AND CALCULATIONS 2-D Measurements and LV Function: LVID (d) 4.1 cm Planimetered EF 61 % LVID (s) 2.9 cm LV FS% (2D) 29 % IVS (d) 1.1 cm LVOT diameter 2.9 cm LVPW (d) 1.0 cm HR 58 bpm Ao Sinus 4.2 cm LA Vol index 32 ml/m2 Ao Sinus ULN 4.2 cm * RA Vol index 24 ml/m2 Asc Ao 4.1 cm RV Basal Diam 4.4 cm Asc Ao ULN 4.4 cm * RV Mid Diam 3.9 cm * Input BSA and age are outside of ranges, reported values correspond to BSA = 2.1 and Age = 81 Diastology: Mitral Tissue Doppler Pulmonary veins E Peak 0.9 m/s e', Septum 0.06 m/s Pulm s 84.9 cm/s A Peak 1.2 m/s e', Lateral 0.10 m/s Pulm d 41.5 cm/s E/A 0.7 E/e' Average 11.11 Pulm s/d ratio 2.05 DT 486 msec Aortic Valve: Vmax 3.1 m/s PIERRE (V) 2.23 cm?? VTI 0.79 m PIERRE (I) 2.34 cm?? LVOT V max 1.1 m/s Max PG 37 mmHg LVOT VTI 0.29 m Mean PG 21 mmHg SV 184 ml Dim Index 0.36 SV index 73 ml/m?? CO 10.7 l/min CI 4.3 l/min/m?? Mitral Valve: MVA 1.6 cm?? MV P 1/2 141 msec MV Mean G 2 mmHg MV VTI 0.46 m Tricuspid Valve and estimated PA pressures: TAPSE 2.5 cm Contrast documentation: 2cc ml diluted Definity, lot #[id number], [facility]# [id number] was administered in a triple lumen to enhance visualization of all left ventricular segments. . This study was interpreted by an IAC accredited facility. CC: [facility] (med records) [facility], Med/Surg - IP [facility]. Final READ BY Placido Venegas RELEASED BY ANTONY Addendum by OberScharrer, Outside on 09/07/2024 12:53 PM CDT BELOW REPORT RECEIVED BY [facility] ON 09/07/2024 13:18:40 [id number] ECHOCARDIOGRAM MICHAEL BAUGH : 1940 83 years Study Date: 09/07/2024 10:56:36 AM Gender: M BP: 143/59 mmHg Height: 188.00 cm BSA: 2.52 m?? Weight: 128.00 kg Tech: JAMAL Referring MD: PROVIDER REFERRING Site: [facility] Reading Location: MOBILE IP Patient Location: Inpatient. Procedure: 2D w/ Contrast, Color Doppler and Spectral Doppler. Indication for study: Myocarditis Cardiac Rhythm: Regular.Study quality: Fair. Final Impressions: 1. Normal left ventricular size, normal wall thickness, normal global systolic function, calculated EF of 61 %. 2. Right ventricular cavity size is normal, global systolic RV function is normal. 3. The aortic valve is sclerotic, no stenosis and mild regurgitation. 4. The inferior vena cava is dilated, respiratory size variation greater than 50%. 5. Echo contrast was administered to enhance visualization of all left ventricular segments. Comparison Compared to prior exam of 02/26/2018, there has been no significant change. Chamber Sizes and Function Normal left ventricular size, normal wall thickness, normal global systolic function, calculated EF of 61 %. No resting regional wall motion abnormality visualized. Left atrial size is normal. Right ventricular cavity size is normal, global systolic RV function is normal. The right atrium is normal. Right atrial volume index is 24 ml/m??. The pulmonary artery is of normal size and origin. The sinus of Valsalva is borderline. The ascending aorta is normal sized. Valves, RV Pressures and Diastolic Function The aortic valve is sclerotic, no stenosis and mild regurgitation. The mitral valve is sclerotic, trace mitral regurgitation. Indeterminate pattern of LV diastolic filling. The tricuspid valve is normal in structure, trace tricuspid regurgitation. The pulmonic valve is normal. Trace pulmonary regurgitation. Masses, Effusion, Shunts There is no pericardial effusion. The inferior vena cava is dilated, respiratory size variation greater than 50%. No left to right shunting was detected by limited color flow Doppler interrogation of the interatrial septum. MEASUREMENTS AND CALCULATIONS 2-D Measurements and LV Function: LVID (d) 4.1 cm Planimetered EF 61 % LVID (s) 2.9 cm LV FS% (2D) 29 % IVS (d) 1.1 cm LVOT diameter 2.9 cm LVPW (d) 1.0 cm HR 58 bpm Ao Sinus 4.2 cm LA Vol index 32 ml/m2 Ao Sinus ULN 4.2 cm * RA Vol index 24 ml/m2 Asc Ao 4.1 cm RV Basal Diam 4.4 cm Asc Ao ULN 4.4 cm * RV Mid Diam 3.9 cm * Input BSA and age are outside of ranges, reported values correspond to BSA = 2.1 and Age = 80 Diastology: Mitral Tissue Doppler Pulmonary veins E Peak 0.9 m/s e', Septum 0.06 m/s Pulm s 84.9 cm/s A Peak 1.2 m/s e', Lateral 0.10 m/s Pulm d 41.5 cm/s E/A 0.7 E/e' Average 11.11 Pulm s/d ratio 2.05 DT 486 msec Aortic Valve: Vmax 3.1 m/s PIERRE (V) 2.23 cm?? VTI 0.79 m PIERRE (I) 2.34 cm?? LVOT V max 1.1 m/s Max PG 37 mmHg LVOT VTI 0.29 m Mean PG 21 mmHg SV 184 ml Dim Index 0.36 SV index 73 ml/m?? CO 10.7 l/min CI 4.3 l/min/m?? Mitral Valve: MVA 1.6 cm?? MV P 1/2 141 msec MV Mean G 2 mmHg MV VTI 0.46 m Tricuspid Valve and estimated PA pressures: TAPSE 2.5 cm Contrast documentation: 2cc ml diluted Definity, lot #[id number], [facility]# [id number] was administered in a triple lumen to enhance visualization of all left ventricular segments. . This study was interpreted by an IAC accredited facility. CC: [facility] (med records) [facility], Med/Surg - IP [facility]. Final READ BY Placido Venegas RELEASED BY ANTONY Narrative IMAGING - 09/07/2024 1:35 PM CDT This order has been created and auto-finalized to support the import of outside images. If available, original interpretation can be found on the Media Tab in Chart Review, in Document Viewer, as an image in InfinityView or as an Addendum. If a re-interpretation or overread is required please follow defined workflow. Procedure Note Digital Media, Outside - 09/07/2024 This order has been created and auto-finalized to support the import ofoutside images. If available, original interpretation can be found on theMedia Tab in Chart Review, in Document Viewer, as an image in InfinityViewor as an Addendum. If a re-interpretation or overread is required please follow definedworkflow. us Provider Not In System IMG NON RAD IMAGING PROCE BHARATH Edited Result - Final IMAGING NA * (ABNORMAL) CBC, Chemotherapy, No Alerts (08/12/2024 8:07 AM CDT) Hemoglobin 13.0(L) 13.2 - 16.6 g/dL 08/12/2024 8:20 AM CDT METH Platelet Count 174 135 - 317 x10(9)/L 08/12/2024 8:20 AM CDT METH Leukocytes 8.3 3.4 - 9.6 x10(9)/L 08/12/2024 8:20 AM CDT METH Neutrophils 5.11 1.56 - 6.45 x10(9)/L 08/12/2024 8:20 AM CDT DHPM Blood (Blood, Venous) 08/12/2024 8:07 AM CDT 08/12/2024 8:18 AM CDT us Casimiro Chavez M.D., Ph.D. LAB BLOOD ADD-ON Final Result Performing Organization Address [facility] Co de Phone Number [facility] [address] [place] [address], [place] METH [facility] [address] [place] [address] DHPM [facility] [address] [place] [address] * [facility] Research, Blood (08/05/2024 5:54 PM CDT) Only the most recent of4 resultswithin the time period is included. Number of Specimens 1 08/05/2024 5:54 PM CDT HSS Blood (Blood, Venous) 08/05/2024 5:54 PM CDT 08/05/2024 5:54 PM CDT us Casimiro Chavez M.D., Ph.D. LAB RESEARCH NO RESULT ROUTING Final Result [facility] [address] [place] [address], [facility] [address] [place] [address] * Misc Research, Urine (08/05/2024 11:02 AM CDT) Number of Specimens 1 08/05/2024 11:02 AM CDT HS Urine (Urine, Midstream) 08/05/2024 11:02 AM CDT 08/05/2024 11:02 AM CDT Casimiro Chavez M.D., Ph.D. LAB RESEARCH NO RESULT ROUTING Final Result Performing Organization Address [facility] Co de Phone Number [facility] [address] [place], [place] [id number] [place] [address] [address] [place] [address] * T4 (Thyroxine), Free, Serum (08/05/2024 10:52 AM CDT) T4 (Thyroxine), Free, S 0.9 0.9 - 1.7 ng/dL 08/05/2024 12:53 PM CDT DTL Blood 08/05/2024 10:5 2 AM CDT 08/05/2024 11:26 AM CDT Casimiro Chavez M.D., Ph.D. LAB BLOOD ADD-ON Final Result Performing Organization Address City/[facility]/ZIP Co de Phone Number [facility] [address] [place] [address], [place] [facility] [address] [place] [address] * Thyroperoxidase (TPO) Antibodies (08/05/2024 10:52 AM CDT) Thyroperoxidase Ab, S <15.0 <34.0 IU/mL 08/05/2024 12:53 PM CDT DTL Blood 08/05/2024 10:5 2 AM CDT 08/05/2024 11:26 AM CDT us Casimiro Chavez M.D., Ph.D. LAB BLOOD ADD-ON Final Result [facility] [address] [place] [address], [place] [facility] [address] [place] [address] * EXT Tempus xF (07/29/2024 5:40 PM [...] CDT [facility] EXT [facility]us Portal [email or web address] 07/29/2024 5:40 PM CDT [facility] Comment:[facility] [...] TESTING Fin al Result Performing Organization Address City/[facility] Co de Phone Number [facility] [address] [facility], [address] [place] [address], [place] [phone] [facility] [address] [facility], [address] [place] [address] * Aura [facility] xT, Normal - Sent Out Lab (07/18/2024 2:37 PM CDT) [facility] xT Normal, B Collected, Sent to Reference Lab DEFAULT 07/19/2024 10:47 AM CDT AURA Blood (Blood, Venous) 07/18/2024 2:37 PM CDT 07/19/2024 10:47 AM CDT Narrative [facility] AURA REFERRALS - 07/19/2024 10:47 AM CDT Specimen Information: Specimen ID: [id number] Specimen Type: Blood Specimen Collection Start Date: 07/18/2024 2:37 PM Specimen Received Date: 07/19/2024 10:47 AM Specimen ID: [id number] Specimen Type: Blood Specimen Collection Start Date: 07/18/2024 2:37 PM Specimen Received Date: 07/19/2024 10:47 AM Casimiro Chavez M.D., Ph.D. LAB GENETIC TESTING Fin al Result Performing Organization Address City/[facility]/ZIP Co de Phone Number [facility] AURA REFERRALS [address] [place] [address], [place] AURA [address] [place] [address] * CT Lymph Node Biopsy (07/08/2024 10:48 [...] lymphadenopathy IMPRESSION: CT-guided lymph node biopsy NR [facility] PUBLIC ADDRESS ANNOUNCER, C.N.P., D.N.P., M.S. IMG C T PROCEDURES [...] Tissue (Lymph Node) 07/08/2024 9:31 AM CDT Carol Avila APRN, C.N.P., D.N.P., M.S. LAB S URG PATH ORDERABLES Final Result Performing Organization Address [facility] de Phone Number [address] DTL [address] [place] [address] * Prothrombin Time (PT) (07/08/2024 7:36 AM CDT) Prothrombin Time, P 12.3 9.4 - 12.5 sec 07/08/2024 9:06 AM CDT DTL INR 1.1 0.9 - 1.1 07/08/2024 9:06 AM CDT DTL Comment: ----ADDITIONAL INFORMATION---- Standard intensity warfarin therapeutic range: 2.0 to 3.0 High intensity warfarin therapeutic range: 2.5 to 3.5 Blood (Blood, Venous) 07/08/2024 7:36 AM CDT 07/08/2024 8:45 AM CDT Smitha Escobar APRN, C.N.P. LAB BLOOD ADD-ON Fin al Result Performing Organization Address [facility] Co de Phone Number [address] [place] [address] * CT Urogram without and with IV [...] with slight narrowingof the distal right ureter Barby Ojeda APRN, C.N.P., M.S.N. IMG CT [...] be reported separately. IMPRESSION: Stable CT chest. Barby Ojeda APRN C.NLilianaP., M.S.N. IMG CT P ROCEDURES Final Result * (ABNORMAL) Cytology Non-ELECTRONIC SENSING EQUIPMENT ASSEMBLER (06/24/2024 8:07 AM CDT) (A) 06/28/2024 12:55 [...] 8:07 AM CDT 06/24/2024 8:32 AM CDT Barby Ojeda APRN, C.N.P., M.S.N. LAB SURG PATH ORDERABLES Final Result [facility] [address] [place] [address], [place] DTL [address] [place] [address] * Vitamin B12 Assay (06/24/2024 7:05 AM CDT) Pathologist [facility] Vitamin B12 Assay, S [phone] - [...] M.S.N. LAB BLOO D ADD-ON Final Result [facility] [address] [place] [address], [place] DTL [facility] [address] [place] [address] from Last 3 Months Insurance [facility] Advance Directives For more information, please contact: [phone] Documents on File Type Date Recorded Patient Relief Docking Master Expl anation Advance Directives 05/29/2011 12:00 AM Leg acy document. See document viewer. * Full Code (Latest Code Status on File) Date Activated Date Inactivated Comments 09/07/2024 8:41 PM 09/15/2024 5:41 PM Question Answer Comments Full Code: Discussed * Full Code Date Activated Date Inactivated Comments 10/13/2022 11:41 AM 10/14/2022 2:29 PM Question Answer Comments Full Code: Discussed
--- OUTSIDE RECORDS SUMMARY | 2024-09-15 19:03 | XMS_ITS | Encounter Summary ---
Author Organization [facility] Address [address] [place] [address] Care Team Providers Care Felt Strip Finisher Name Role Phone Unavailable Primary Care Provider Unavailabl e Encounter Details Date Type Department Care Team (Late st Contact Info) Description 08/10/2024 Orders Only Department of Oncology in [place], [place] [address] [place] [address] Tung Walker Malignant Neoplasm Of Bladder (HCC) (Primary Dx); Secondary Malignant Neoplasm Lymph Node (HCC) Social History Tobacco Use Types Packs/Day Years Used Date Smoking Tobacco: Former Cigarettes 1 20 0 04/22/1959 - 04/22/1989 Passive Smoke Exposure: Past Smokeless Tobacco: Never Alcohol Use Standard Drinks/Week Comments Yes 6 (1 standard drink = 0.6 oz pur e alcohol) Light social drinker [facility] Utilities Answer Date Recorded In the past 12 months has [facility] [employer], gas, oil, or water [employer] threatened to shut off services in your [...] How often do you attend [facility] or jainism services? Patient declined 05/28/2022 Do you belong to any clubs o r organizations such as mu-ism groups, unions, fraternal or athletic groups, or [...] and heating? Not very hard 09/05/2022 [facility] - Occupational Stress Questionnaire Answer Date [...] your living situation today? I have a [facility] place to live 07/05/2024 Education Answer Date Recorded What is the highest level of school you have completed or the highest degree you have received? Bachelor's degree (e.g., BA, AB, BS) 05/16/2019 Sex and Gender Information Value Date Recorded Sex Assigned at Male 01/13/2020 10:41 AM CDT Legal Sex Male 3:35 PM ENVIRONMENTAL PERMITTING SPECIALIST Gender Identity Male 04/11/2018 8:29 AM ENVIRONMENTAL PERMITTING SPECIALIST Sexual Orientation Straight 04/11/2018 8: 29 AM ENVIRONMENTAL PERMITTING SPECIALIST documented as of this encounter Plan of Treatment Upcoming Encounters Date Type Department Care Team (Late st Contact Info) Description 09/16/2024 7:10 AM CDT Appointment Department of Laboratory Medicine and Pathology, [facility] in [place], [place] [address] [place] [address] Tanya Herrmann P.A.-C. [address] [place] [phone] 09/16/2024 9:00 AM CDT Office Visit Department of Oncology in [place], [place] [address] [place] [address] Tanya Herrmann P.A.-C. [address] [place] [phone] 09/22/2024 8:40 AM CDT Appointment Department of Laboratory Medicine and Pathology, [facility] in [place], [place] [address] [place] [phone] Tanya Herrmann P.A.-C. [address] [place] [phone] 09/22/2024 10:40 AM CDT Office Visit Department of Oncology in [place], [place] [address] [place] [phone] Holley Monsalve APRN, C.N.P. [address] [place] [phone] 09/22/2024 11:20 AM CDT Office Visit Department of Oncology in [place], [place] [address] [place] [phone] Izabella Garza M.D. [address] [place] [phone] 09/22/2024 1:00 PM CDT Comprehensive Visit Department of Cardiovascular Medicine in [address] [phone] Tanya Dang APRN, C.N.P., D.N.P. [address] [place] [phone] 10/10/2024 2:30 PM CDT Clinical Communication Virtual Review in [place], [place] [address] [place] [address] 10/11/2024 8:10 AM CDT Appointment Department of Laboratory Medicine and Pathology, [facility], in [place], [place] [address] [place] [phone] Soha Huggins P.A.-C. [address] [place] [phone] 10/11/2024 9:00 AM CDT Appointment Department of Radiology, [facility], in [place], [place] [address] [place] [address] Soha Huggins P.A.-C. [address] [place] [phone] 10/11/2024 3:40 PM CDT Office Visit Department of Oncology in [place], [place] [address] [place] [phone] Casimiro Chavez M.D., Ph.D. [address] [place] [phone] 11/22/2024 1:00 PM CDT Comprehensive Visit Department of Neurology in [place], [place] [address] [place] [phone] Sandy Nicholson M.D., Ph.D. [address] [place] [phone] Scheduled Orders Name Type Priority Associated Diagnoses Orde r Schedule [facility], Blood Lab Routine Malignant Neoplasm Of Bladder (HCC) Secondary Malignant Neoplasm Lymph Node (HCC) Expected: 08/26/2024, Expires: 11/09/2025 [facility], Urine Lab Routine Malignant Neoplasm Of [...]
--- OUTSIDE RECORDS SUMMARY | 2024-09-15 19:03 | XMS_ITS | Encounter Summary ---
Author Organization [facility] Address [address] [place] [address] Care Team Providers Care Press Catcher Name Role Phone Unavailable Primary Care Provider Unavailabl e Encounter Details Date Type Department Care Team (Late st Contact Info) Description 08/16/2024 Clinical Communication Department of Oncology in [place], [place] [address] [place] [phone] Casimiro Chavez M.D., Ph.D. [address] [place] [phone] Social History Tobacco Use Types Packs/Day Years Used Date Smoking Tobacco: Former Cigarettes 1 20 0 04/22/1959 - 04/22/1989 Passive Smoke Exposure: Past Smokeless Tobacco: Never Alcohol Use Standard Drinks/Week Comments Yes 6 (1 standard drink = 0.6 oz pur e alcohol) Light social drinker [facility] Utilities Answer Date Recorded In the past 12 months has [employer], gas, oil, or water [employer] threatened to shut off services in your [...] How often do you attend chur or quaker services? Patient declined 05/28/2022 Do you belong [...] care, and heating? Not very hard 09/05/2022 [facility] of Occupat ional Health - Occupational Stress [...] your living situation today? [facility] have a [facility] place [facility] live 07/05/2024 Education Answer Date Recorded What is the highest level of school you have completed or the highest degree you have received? Bachelor's degree (e.g., BA, AB, BS) 05/16/2019 Sex and Gender Information Value Date Recorded Sex Assigned at Male 01/13/2020 10:41 AM CDT Legal Sex Male 3:35 PM COUNTER CLERK [employer] Gender Identity Male 04/11/2018 8:29 AM COUNTER CLERK [employer] Sexual Orientation Straight 04/11/2018 8: 29 AM COUNTER CLERK [employer] documented as of this encounter Plan of Treatment Upcoming Encounters Date Type Department Care Team (Late st Contact Info) Description 09/16/2024 7:10 AM CDT Appointment Department of Laboratory Medicine and Pathology, [facility], in [place], [place] [address] [place] [address] Tanya Herrmann P.A.-C. [address] [place] [phone] 09/16/2024 9:00 AM CDT Office Visit Department of Oncology in [place], [place] [address] [place] [address] Tanya Herrmann P.A.-C. [address] [place] [phone] 09/22/2024 8:40 AM CDT Appointment Department of Laboratory Medicine and Pathology, [facility] in [place], [place] [address] [place] [phone] Tanya Herrmann P.A.-C. [address] [place] [phone] 09/22/2024 10:40 AM CDT Office Visit Department of Oncology in [place], [place] [address] [place] [phone] Holley Monsalve APRN, C.N.P. [address] [place] [phone] 09/22/2024 11:20 AM CDT Office Visit Department of Oncology in [place], [place] [address] [place] [phone] Izabella Garza M.D. [address] [place] [phone] 09/22/2024 1:00 PM CDT Comprehensive Visit Department of Cardiovascular Medicine in [place], [place] [address] [place] [phone] Tanya Dang APRN, C.N.P., D.N.P. [address] [place] [phone] 10/10/2024 2:30 PM CDT Clinical Communication Virtual Review in [place], [place] 200 [place] [phone] 10/11/2024 8:10 AM CDT Appointment Department of Laboratory Medicine and Pathology, [facility] in [place], [place] [address] [place] [phone] Soha Huggins P.A.-C. [address] [place] [phone] 10/11/2024 9:00 AM CDT Appointment Department of Radiology, [facility], in [place], [place] [address] [place] [address] Soha Huggins P.A.-C. [address] [place] [phone] 10/11/2024 3:40 PM CDT Office Visit Department of Oncology in [place], [place] [address] [place] [address] Casimiro Chavez M.D., Ph.D. [address] [place] [phone] 11/22/2024 1:00 PM CDT Comprehensive Visit Department of Neurology in [place], [place] [address] [place] [phone] Sandy Nicholson M.D., Ph.D. [address] [place] [phone] documented as of this encounter Visit Diagnoses Not on filedocumented in this encounter Additional Health Concerns Infection Onset Date Last Indicated Resolved Time Protective Environment 08/05/2024 08/05/202409/12 8:32 PM CDT documented as of this encounter
--- OUTSIDE RECORDS SUMMARY | 2024-09-15 19:03 | XMS_ITS | Clinical Summary ---
Author Organization [facility] Address [address] [place] [address] Care Team Providers Care Degreasing Solution Mixer Name Role Phone Gaetano Mariscal MD Primary [...] Comments Blood Pressure 133/65 04/02/2017 3:00 PM HUMAN RESOURCES ANALYST Pulse 57 04/02/2017 3:00 PM HUMAN RESOURCES ANALYST Temperature 35.9 C (96.6 F) 04/02/2017 3:00 PM HUMAN RESOURCES ANALYST Respiratory Rate 16 04/02/2017 3:00 PM HUMAN RESOURCES ANALYST Oxygen Saturation 99% 04/01/2017 2:23 PM HUMAN RESOURCES ANALYST Inhaled Oxygen Concentration - - Weight 143 kg (315 lb 3.2 oz) 03/24/2017 7:04 AM HUMAN RESOURCES ANALYST Height 190.5 cm (6' 3) 03/19/2017 8:55 PM HUMAN RESOURCES ANALYST Body Mass Index 39.4 03/19/2017 8:55 PM HUMAN RESOURCES ANALYST Plan of Treatment Not on file Insurance MEDICARE Advance Directives For more information, please contact: [phone] * Full Code (Latest Code Status on File) Date Activated Date Inactivated Comments 03/24/2017 1:29 PM * Full Code Date Activated Date Inactivated Comments 03/19/2017 9:00 PM 03/24/2017 1:29 PM Care Teams Degreasing Solution Mixer Relationship Specialty Start Date End Date Gaetano Mariscal MD [facility] [address] [place] [address] PCP - General Emergency Medicine 03/19/17
--- OUTSIDE RECORDS SUMMARY | 2024-09-15 19:03 | XMS_ITS | Encounter Summary ---
Author Organization [facility] Address [address] [place] [address] Care Team Providers Care President Financial Institution Name Role Phone Unavailable Primary Care Provider Unavailabl e Encounter Details Date Type Department Care Team (Late st Contact Info) Description 08/21/2024 CPAP Download Remote Patient Monitoring [facility] [address] [place] [phone] [facility], ProviderMD Social History Tobacco Use Types Packs/Day Years Used Date Smoking Tobacco: Former Cigarettes 1 20 0 04/22/1959 - 04/22/1989 Passive Smoke Exposure: Past Smokeless Tobacco: Never Alcohol Use Standard Drinks/Week Comments Yes 6 (1 standard drink = 0.6 oz pur e alcohol) Light social drinker [facility] Utilities Answer Date Recorded In [...] How often do you attend chur or adventism services? Patient declined 05/28/2022 Do you belong [...] your living situation today? I have a [facility] place to live 07/05/2024 Education Answer Date Recorded What is the highest level of school you have completed or the highest degree you have received? Bachelor's degree (e.g., BA, AB, BS) 05/16/2019 Sex and Gender Information Value Date Recorded Sex Assigned at Male 01/13/2020 10:41 AM CDT Legal Sex Male 3:35 PM DRAMATIC AGENT Gender Identity Male 04/11/2018 8:29 AM DRAMATIC AGENT Sexual Orientation Straight 04/11/2018 8: 29 AM DRAMATIC AGENT documented as of this encounter Plan of Treatment Upcoming Encounters Date Type Department Care Team (Late st Contact Info) Description 09/16/2024 7:10 AM CDT Appointment Department of Laboratory Medicine and Pathology, [facility] in [place], [place] [address] [place] [phone] Tanya Herrmann P.ALiliana-Juan Carlos [address] [place] [phone] 09/16/2024 9:00 AM CDT Office Visit Department of Oncology in [place], [place] [address] [place] [phone] Tanya Herrmann P.A.-Juan Carlos [address] [place] [phone] 09/22/2024 8:40 AM CDT Appointment Department of Laboratory Medicine and Pathology, [facility] in [place], [place] [address] [place] [phone] Tanya Herrmann P.A.-C. [address] [place] [phone] 09/22/2024 10:40 AM CDT Office Visit Department of Oncology in [place], [place] [address] [place] [phone] Holley Monsalve APRN, C.N.P. [address] [place] [phone] 09/22/2024 11:20 AM CDT Office Visit Department of Oncology in [address] [phone] Izabella Garza M.D. [address] [place] [phone] 09/22/2024 1:00 PM CDT Comprehensive Visit Department of Cardiovascular Medicine in [address] [phone] Tanya Dang APRN, C.N.P., D.N.P. [address] [place] [phone] 10/10/2024 2:30 PM CDT Clinical Communication Virtual Review in [place], [place] 200 [place] [phone] 10/11/2024 8:10 AM CDT Appointment Department of Laboratory Medicine and Pathology, [facility], in [place], [place] [address] [phone] Soha Huggins P.A.-C. [address] [place] [phone] 10/11/2024 9:00 AM CDT Appointment Department of Radiology, [facility], in [place], [place] [address] [place] [phone] Soha Huggins P.A.-C. [address] [place] [phone] 10/11/2024 3:40 PM CDT Office Visit Department of Oncology in [place], [place] [address] [place] [phone] Casimior Chavez M.D., Ph.D. [address] [place] [phone] 11/22/2024 1:00 PM CDT Comprehensive Visit Department of Neurology in [place], [place] [address] [place] [phone] Sandy Nicholson M.D., Ph.D. [address] [place] [phone] documented as of this encounter Visit Diagnoses Not on filedocumented in this encounter Additional Health Concerns Infection Onset Date Last Indicated Resolved Time Protective Environment 08/05/2024 08/05/202409/12 8:32 PM CDT documented as of this encounter
--- OUTSIDE RECORDS SUMMARY | 2024-09-15 19:03 | XMS_ITS | Encounter Summary ---
Author Organization [facility] Address [address] [place] [address] Care Team Providers Care Breaker Hand Name Role Phone Unavailable Primary Care Provider Unavailabl e Reason for Visit * Reason Onset Date Comments Rx Approval 08/09/2024 Hydroxyzine HCL 25 mg Encounter Details Date Type Department Care Team (Latest Contact Info) Description 08/09/2024 Clinical Communication Pharmacy Prior Auth [phone] Mague Aleman Rx Approval (Hydroxyzine HCL 25 mg) Social History Tobacco Use Types Packs/Day Years Used Date Smoking Tobacco: Former Cigarettes 1 20 0 04/22/1959 - 04/22/1989 Passive Smoke Exposure: Past Smokeless Tobacco: Never Alcohol Use Standard Drinks/Week Comments Yes 6 (1 standard drink = 0.6 oz pur e alcohol) Light social drinker [facility] Utilities Answer Date Recorded In the past 12 months has [facility] [employer], gas, oil, or water [employer] threatened to shut off services in [...] 05/28/2022 How often do you attend [facility] or jain services? Patient declined 05/28/2022 Do you belong to any clubs o r organizations such as temple groups, unions, fraternal or athletic groups, or [...] care, and heating? Not very hard 09/05/2022 [facility] of Occupat ional [facility] - Occupational Stress Questionnaire Answer Date [...] a [facility] place to live 09/07/2024 Education Answer Date Recorded What is the highest level of school you have completed or the highest degree you have received? Bachelor's degree (e.g., BA, AB, BS) 05/16/2019 Sex and Gender Information Value Date Recorded Sex Assigned at Male 01/13/2020 10:41 AM CDT Legal Sex Male 3:35 PM MOTION PICTURE ACTOR Gender Identity Male 04/11/2018 8:29 AM MOTION PICTURE ACTOR Sexual Orientation Straight 04/11/2018 8: 29 AM MOTION PICTURE ACTOR documented as of this encounter Miscellaneous Notes * Telephone Encounter - Mague Aleman - 08/09/2024 4:19 PM CDT Pharmaceutical prior authorization has been approved for Hydroxyzine HCL 25 mg. If you have any follow-up questions, please send an [employer] message to [facility] EPA POOL. documented in this encounter Plan of Treatment Upcoming Encounters Date Type Department Care Team (Late st Contact Info) Description 09/16/2024 7:10 AM CDT Appointment Department of Laboratory Medicine and Pathology, [facility], in [place], [place] [address] [place] [phone] Tanya Herrmann P.A.-C. [address] [place] [phone] 09/16/2024 9:00 AM CDT Office Visit Department of Oncology in [place], [place] [address] [place] [phone] Tanya Herramnn P.A.-C. [address] [place] [phone] 09/22/2024 8:40 AM CDT Appointment Department of Laboratory Medicine and Pathology, [facility] in [place], [place] [address] [place] [phone] Tanya Herrmann P.A.-C. [address] [place] [phone] 09/22/2024 10:40 AM CDT Office Visit Department of Oncology in [place], [place] [address] [place] [phone] Holley Monsalve APRN, C.N.PLiliana [address] [place] [phone] 09/22/2024 11:20 AM CDT Office Visit Department of Oncology in [place], [place] [address] [place] [phone] Izabella Garza M.D. [address] [place] [phone] 09/22/2024 1:00 PM CDT Comprehensive Visit Department of Cardiovascular Medicine in [place], [place] [address] [place] [phone] Tanya Dang APRN, C.N.PLiliana, D.N.P. [address] [place] [phone] 10/10/2024 2:30 PM CDT Clinical Communication Virtual Review in [place], [place] 200 [place] [phone] 10/11/2024 8:10 AM CDT Appointment Department of Laboratory Medicine and Pathology, [facility] in [place], [place] [address] [place] [phone] Soha Huggins P.A.-C. [address] [place] [phone] 10/11/2024 9:00 AM CDT Appointment Department of Radiology, [facility] in [place], [place] [address] [place] [phone] Soha Huggins P.A.-C. [address] [place] [phone] 10/11/2024 3:40 PM CDT Office Visit Department of Oncology in [address] [phone] Casimiro Chavez M.D., Ph.D. [address] [place] [phone] 11/22/2024 1:00 PM CDT Comprehensive Visit Department of Neurology in [address] [phone] Sandy Nicholson M.D., Ph.D. [address] [place] [phone] documented as of this encounter Visit Diagnoses Not on filedocumented in this encounter Additional Health Concerns Infection Onset Date Last Indicated Resolved Time Protective Environment 08/05/2024 08/05/202409/12 8:32 PM CDT documented as of this encounter
--- OUTSIDE RECORDS SUMMARY | 2024-09-15 19:03 | XMS_ITS ---
Author Organization [facility] Address [address] [place] [address] Care Team Providers Care Agency Sales Director Name Role Phone Unavailable Primary Care [...] other targeted treatments. Somatic testing ordered through [facility]. We discussed that clinical trials are often available at [facility] and that we prioritize clinical trials because we believe these are the most effective treatments available in any given disease state. Patient is eligible for the NEXNodeable study ([id number], [id number]). I reiterated that there is no compensation and no change in treatment being on this study. Patient has consented and will undergo baseline blood draw 07/18/2024. EV/Pembro is planned to start 08/04/2024. I have notified Tung Walker and [email or web address] by email of this patient's participation in the study with the following: Date/Time of Collection: 07/18/2024 IRB#: [id number] ([employer]) Patient Name: Michael Dwyer Patient ID: [id number] Visit #: Baseline We discussed the recommendation of establishing care with a local oncologist to manage medications, side effects, and disease closer to home. Mr. 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
--- NOTE | 2024-09-15 19:06 | CRLHL7_ITS ---
For Patients: As a result of the Century Cures Act, medical imaging exams and procedure reports are released immediately into your electronic medical record. You may view this report before your referring provider. If you have questions, please contact your health care provider. INDICATION: Transient alteration of awareness TECHNIQUE: CT Head without i.v. contrast. Coronal and sagittal reformats were obtained. COMPARISON: None FINDINGS: The sensitivity and specificity of the exam are moderate to severely limited by artifacts from patient motion. CSF space: Unremarkable for age. Brain: No evidence of mass, acute infarction or hemorrhage is seen. No mass-effect or midline shift is seen. Moderate cortical atrophy is noted. Calvarium: The visualized paranasal sinuses are well aerated. The mastoid air cells are clear. The patient is status post prior bilateral cataract removal. The visualized orbits are grossly unremarkable. Left globe scleral banding is noted. The calvarium is unremarkable in appearance with no fractures identified. IMPRESSIONS: 1. No evidence of acute infarction, intracranial hemorrhage, or mass-effect seen. 2. The sensitivity and specificity of the exam are moderate to severely limited by artifacts from patient motion. Dictated by Star Grigsby MD @ 09/15/2024 8:34:40 PM Please note that all CT scans at this facility use dose modulation, iterative reconstruction, and/or weight-based dosing when appropriate to reduce radiation dose to as low as reasonably achievable. Dictated by: Star Grigsby MD @ 09/15/2024 20:38:31 (Electronically Signed)
--- NOTE | 2024-09-15 19:10 | ED_ITS ---
HPI - General Adult General Date Seen: 09/15/24 Chief complaint: Weakness Stated complaint: weakness Time Seen by Provider: 09/15/24 19:06 History of Present Illness HPI narrative: History is limited because the patient is not really able to answer questions. Speech is very slow and he does not always seem to track questions that are asked. History from paramedics who brought the patient is that this is an 83-year-old gentleman with a history of bladder cancer. He follows with [facility] for most of his treatments and apparently is on and new experimental treatment for his bladder cancer. He received the 1st dose of it today. He apparently was at home again after receiving his meds. He lives in [facility]. After arriving home he became lethargic and weaker than normal and seemed confused so his family called 911. Paramedics brought him here to the ER [place] because he gets some of his medical care here. He was hypotensive EN route in 80s-90 systolic blood pressure. Blood sugar was 240. He had no focal doses but did seem a little bit slow with his heart cognition. EKG showed sinus rhythm. History for the patient is limited. He is really not able to answer questions but he does follow simple commands. In review of his medical record I am not able to get any meaningful information from [employer] version of [employer]. On the able to get records directly from [facility] at this time And reviewed [place] medical record I see that he seen here in the [place] ER about a week ago on 09/06 and hospitalized with concerns for weakness. According to those records he has a history of bladder cancer 13 years ago after surgery but recently had recurrence with a new mass. He has been on chemotherapy done through the [facility]. He is on Keytruda. Most recent dose of Keytruda had been 1 week prior to that hospitalization (roughly 08/30/2024). He had myalgias, limb weakness, ptosis, elevated CK, elevated transaminases, elevated troponin, fatigue, dyspnea, elevated TH. In consultation with [facility], Dr. 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 Male recommended addition of steroid methylprednisolone 100 mg IV. He was hospitalized here and on 09/07 he was feeling better. Back and ambulatory muscles were stronger. Neck was stronger. however [facility] wanted him transferred back to [facility]. We attempted to call patient's by phone. She did not answer. Subsequently the ER nurses were able to get through to her. She adds additional history the patient has been hospitalized in [facility] at [facility] since he was transfer from [place] last week. He was actually just discharged from [facility] at 3 this afternoon. He had a car ride from [place] back to [place]. He apparently slept for a car ride.. When he got home to [place] he was very weak and could not stand to get himself out of the car. It sounds like he had family help him get out of the car. He needed to have a bowel movement so he needed assistance to get on the toilet and then was too weak to sit on the toilet so his family called 911. Paramedics brought him back here to the ER at [place]. Related Data Home Medications ?Medication ?Instructions ?Recorded ?Confirmed polyethylene glycol 3350 17 17 g PO DAILY PRN Constipa tion 04/14/24 09/06/24 gram/dose oral powder (Miralax) ascorbic acid (vitamin C) 500 mg 500 mg PO 3XW 5 09/06/24 capsule diphenhydramine HCl 25 mg capsule 25 mg PO BID PRN 09/0409/06/24 (Allergy (diphenhydramine)) ferrous sulfate 325 mg (65 mg 325 mg PO 3XW 08/15/24 0 09/06/24 iron) tablet (FeroSul) hydroxyzine HCl 25 mg tablet 25 mg PO TID PRN 08/15/24 09/06/24 krill oil 500 mg capsule 500 mg PO QDAY 08/15/2408/12 ondansetron 8 mg disintegrating 8 mg PO Q12H PRN 08/1509/06/24 tablet prochlorperazine maleate 10 mg 10 mg PO Q8H PRN 09/06/24 tablet Held on 09/06/24. Instructions: per patient sennosides 8.6 mg capsule (senna) 17.2 mg PO BID 08/1509/06/24 acetaminophen 500 mg capsule 1,000 mg PO Q6H PRN 09/0609/06/24 allopurinol 300 mg tablet 300 mg PO DAILY 09/06/24 atenolol 25 mg tablet 25 mg PO DAILY 09/06/2408/12 losartan 100 mg tablet 100 mg PO DAILY 09/06/24 simvastatin 40 mg tablet 40 mg PO HS 09/06/24 5 triamcinolone acetonide 0.1 % 1 applic topical BID PRN itch 09/06/24 09/06/24 lotion Allergies Allergy/AdvReac Type Severity Reaction Status Date / Time No Known Allergies Allergy Verified 09/06/24 14:48 [facility] Medical History (Updated 09/15/24 @ 21:31 by Yogesh Juarez MD) Hypertension ?I10 - Essential (primary) hypertension (ICD-10) Dermatitis ?L30.9 - Dermatitis, unspecified (ICD-10) Hernia, ventral (01/13/20) ?K43.9 - Ventral hernia without obstruction or gangrene (ICD-10) Parastomal hernia (02/14/15) ?K43.5 - Parastomal hernia without obstruction or gangrene (ICD-10) Detachment, retinal, with retinal defect (05/08/06) ?H33.009 - Unspecified retinal detachment with retinal break, unspecified eye (ICD-10) Abdominal wall defect, acquired (01/13/20) ?M95.8 - Other specified acquired deformities of musculoskeletal system (ICD- 10) Venous insufficiency (chronic) (peripheral) (05/15/23) ?I87.2 - Venous insufficiency (chronic) (peripheral) (ICD-10) Pulmonary embolism (07/14/11) ?I26.99 - Other pulmonary embolism without acute cor pulmonale (ICD-10) History of thyroid cancer ?Z85.850 - Personal history of malignant neoplasm of thyroid (ICD-10) Chronic kidney disease (CKD) ?N18.9 - Chronic kidney disease, unspecified (ICD-10) Coronary artery disease (07/14/11) ?I25.10 - Atherosclerotic heart disease of [place] coronary artery without angina pectoris (ICD-10) Gout (07/14/11) ?M10.9 - Gout, unspecified (ICD-10) Peripheral venous insufficiency ?I87.2 - Venous insufficiency (chronic) (peripheral) (ICD-10) Hyperlipidemia (07/14/11) ?E78.5 - Hyperlipidemia, unspecified (ICD-10) RUTHY on CPAP ?G47.33 - Obstructive sleep apnea (adult) (pediatric) (ICD-10) Hearing loss ?H91.90 - Unspecified hearing loss, unspecified ear (ICD-10) History of pulmonary embolism ?Z86.711 - Personal history of pulmonary embolism (ICD-10) Tubular adenoma ?D36.9 - Benign neoplasm, unspecified site (ICD-10) Obesity ?E66.9 - Obesity, unspecified (ICD-10) Surgical History (Updated 09/15/24 @ 00:01 by Background Daemon) History of insertion of central venous access port ?Z95.828 - Presence of other vascular implants and grafts (ICD-10) History of thyroidectomy ?Z98.890 - Other specified postprocedural states (ICD-10) ?Z90.89 - Acquired absence of other organs (ICD-10) History of urostomy ?Z98.890 - Other specified postprocedural states (ICD-10) Social History Narrative: Hx tobacco use What is your current living situation?: I presently have a place to live Problems where you live: no known problems Problems where you live details: N/A In the past 12 months, utilities in danger of being shut off: no In past 12 months, lack of transportation kept you from medical appts, meetings, work, or getting things needed for daily living: no In the past 12 mos, have been you worried that your food would run out before you had money to buy more?: never true In the past 12 mos, the food you bought just didn't last and you didn't have money to buy more?: never true Smoking Status: Former smoker Do you use any of these nicotine containing products: None Second hand tobacco smoke exposure: No How often do you have a drink containing alcohol: 2-3 times a week Alcohol type: beer and wine How many standard drinks containing alcohol do you have on a typical day: 1 or 2 How often do you have six or more drinks on one occasion: Never AUDIT-C Alcohol total score: 3 Non-prescribed substance use: denies use Caffeine: Yes (1 cup of coffee a day) How often does anyone, including family, friends and others, physically hurt you : never How often does anyone, including family, friends and others, insult or talk down to you: never How often does anyone, including family, friends and others, threaten you with harm: never How often does anyone, including family, friends and others, scream or curse at you: never service: Yes Exam Narrative: Exam Narrative: Constitutional: He looks large and somewhat heavyset. He looks pale. He arrives by EMS. He is awake but seems a little bit slow with his cognition. No slurred speech or definite focal deficits. When I asked him to provide history he just seems to stare off into space. He tries to give a short answer after a few seconds but seems a bit confused. Follows simple commands and moves each of his 4 extremities appropriately when asked. Has some weakness in his trouble getting his legs off the bed. HENT: Head: Atraumatic. Nose: Nose normal. Mouth/Throat: Oral mucosa is clear and moist. no trismus. Pharynx normal. Tonsils symmetric. No tonsillar enlargement, erythema, or exudate. Eyes: Conjunctivae normal. EOM normal. Pupils equal, round, and reactive to light. No scleral icterus. Neck: Normal range of motion. Neck supple. No tracheal deviation present. Cardiovascular: Normal rate, regular rhythm. No gallop. No friction rub. No murmur heard. Symmetric radial artery pulses Pulmonary/Chest: Effort normal. No stridor. No respiratory distress. No wheezes. No rales. No rhonchi . No tenderness. Abdominal: Soft. Bowel sounds normal. No distension. No mass. No tenderness. No rebound. No guarding. Musculoskeletal: RUE: Normal range of motion. No tenderness. No deformity LUE: Normal range of motion. No tenderness. No deformity RLE: Normal range of motion. No edema. No tenderness. No deformity LLE: Normal range of motion. No edema. No tenderness. No deformity Lymph: No cervical adenopathy. Neurological: Alert and oriented to person, place, and time. Normal strength. CN II-VII intact. No sensory deficit. GCS eye subscore is 4. GCS verbal subscore is 5. GCS motor subscore is 6. Normal coordination Skin: Skin is warm and dry. No rash noted. No pallor. Normal capillary refill. Psychiatric: Normal mood. Normal affect. Const: Vital Signs, click to edit/add: Vital Signs - 24 hr 09/15/24 19:06 09/15/24 19:11 09/15/24 19:15 Temperature 96.0 F L Pulse Rate 72 74 Pulse Rate [Pulse Oximeter] 76 Respiratory Rate 20 22 24 Blood Pressure 109/46 L Blood Pressure [Ri ght Upper Arm] 85/41 L Pulse Oximetry 94 96 100 Oxygen Delivery Me thod Room Air 09/15/24 19:16 09/15/24 19:23 09/15/24 19:30 Temperature Pulse Rate 74 Pulse Rate [Pulse Oximeter] Respiratory Rate 23 28 H 19 Blood Pressure 111/56 L Blood Pressure [Ri ght Upper Arm] Pulse Oximetry 90 Oxygen Delivery Me thod 09/15/24 19:42 09/15/24 19:45 09/15/24 19:58 Temperature Pulse Rate Pulse Rate [Pulse Oximeter] Respiratory Rate 21 20 16 Blood Pressure 123/92 H 128/103 H Blood Pressure [Ri ght Upper Arm] Pulse Oximetry Oxygen Delivery Me thod 09/15/24 20:01 09/15/24 20:06 09/15/24 20:24 Temperature Pulse Rate 79 Pulse Rate [Pulse Oximeter] Respiratory Rate 20 18 Blood Pressure 122/48 L 112/55 L Blood Pressure [Ri ght Upper Arm] Pulse Oximetry 94 98 Oxygen Delivery Me thod 09/15/24 21:36 09/15/24 21:55 Temperature 97.1 F L 97.3 F L Pulse Rate 76 79 Pulse Rate [Pulse Oximeter] Respiratory Rate 18 18 Blood Pressure 143/59 H 138/56 L Blood Pressure [Ri ght Upper Arm] Pulse Oximetry 94 95 Oxygen Delivery Me thod Room Air Room Air Course Course ED Course: Patient seen upon EMS arrival in ER bed 3. He was pale, confused, initial blood pressure was 85/45. IV is established, you ordered 30 mL/kg fluid bolus (based on weight, would be about 3500 mL total). Broad-spectrum antibiotics for sepsis. Labs and sepsis workup also ordered. Recheck-multiple bedside rechecks. Blood pressure responded slowly to IV fluids. He was not tachycardic. Mental status perhaps slightly improved Call to [facility] to initiate process for transfer. Multiple bedside rechecks. Blood pressure still responding up to 123/90. For recheck-labs show lower hemoglobin at 7.3. We had to call [facility] to find out recent baseline it turns out it was 12 this morning. Other labs show potentially spurious findings. Will recheck CBC and recheck BMP. Repeat CBC showed a white count that had gone up from 16 initially up to 27. Unclear if this is a lab error now or if the for which lab value was correct. Repeat hemoglobin is now 9.1. Suspect that the for CBC might of been diluted. Will check a 3rd to double check. With confirm low hemoglobin will order type and screen and transfusion of packed red cells. Patient is still somewhat confused and slow with mentation but seems more alert than arrival. Blood pressure is definitely improved Repeat lactic came down slightly to 6.6 but is still elevated. CT scan shows large fluid collection in the left retroperitoneum by my read, concerning for spontaneous hematoma. I placed a stat phone call to radiologist acid staff read it. I again called [facility] to see we can expedite transfer. Received a phone call back from Radiology and they confirm that there is a retroperitoneal hematoma. Bedside recheck. Discussed the hematoma of the patient and his and family who are now at bedside. They verbalized their understanding. Will be going back for CT with contrast to look for any active contrast extravasation. Verbal consent obtained for blood. Called lab to make sure blood was coming stat. If type and screen cannot be done within the next couple of minutes they needed to bring us on crossmatch blood. Fortunately he is actually hemodynamically stable. We were able to get crossmatch blood and transfusion was initiated. We had time to get written consent from the patient's Discussed again with [facility], discussed with banquet food server, Dr. Villalba. He accepted the patient but will be calling around to decide which ICU the patient should go to. They do not want to take the patient as an ER to ER even though he has a retroperitoneal bleed. Recheck-blood pressure still stable. Blood infusing. Patient received a bed at [facility], medical ICU. Recheck-hemodynamically stable. EMS is here to her transport. Now complaining of some left side pain that is new. Will order 25 mcg of fentanyl. Vital Signs Vital signs: Initial Vital Signs Temperature 96.0 F L 09/15/24 19:06 Temperature Source Temporal Artery Scan 09/15/24 19:06 Pulse Rate 76 09/15/24 19:06 Pulse Rhythm Regular 09/15/24 19:06 Respiratory Rate 20 09/15/24 19:06 Blood Pressure 85/41 L 09/15/24 19:06 Blood Pressure Mean 55 L 09/15/24 19:06 Blood Pressure Position Supine 09/15/24 19:06 Pulse Oximetry 94 09/15/24 19:06 Oxygen Delivery Method Room Air 09/15/24 19:06 Vital Signs Temperature 96.0 F L 09/15/24 19:06 Pulse Rate 76 09/15/24 19:06 Respiratory Rate 20 09/15/24 19:06 Blood Pressure 85/41 L 09/15/24 19:06 Pulse Oximetry 94 09/15/24 19:06 Oxygen Delivery Method Room Air 09/15/24 19:06 Temperature 97.3 F L 09/15/24 21:55 Pulse Rate 79 09/15/24 21:55 Respiratory Rate 18 09/15/24 21:55 Blood Pressure 138/56 L 09/15/24 21:55 Pulse Oximetry 95 09/15/24 21:55 Oxygen Delivery Method Room Air 09/15/24 21:55 Medications Administered Medications: Generic Name Dose Route Start Last Admin Trade Name Freq PRN Reason Stop Dose Admin Piperacillin Sod/Tazobactam 100 mls @ 200 mls/hr 09/15/24 19:15 09/15/24 20:54 Sod 4.5 gm/ Sodium Chloride IVPB Infused Q6H YUNI Infusion Calcium Gluconate/Sodium Chloride 1,000 mg in 50 mls @ 100 mls/hr 09/15/24 21:28 09/15/24 22:02 Calcium Gluc 1,000mg/50 Ml IVPB 09/15/24 21:57 100 mls/hr ONCE ONE Administration Tranexamic Acid 1,000 mg 09/15/24 21:06 09/15/24 21:18 Tranexamic Acid 100 Mg/Ml Inj IV 09/15/24 21:07 1,000 mg ONCE ONE Administration Discontinued Medications Generic Name Dose Route Start Last Admin Trade Name Freq PRN Reason Stop Dose Admin Vancomycin/PEG/NADA/Lysine/Water 2 gm in 400 mls @ 200 mls/hr 09/15/24 19:06 09/15/24 20:19 Vancomycin 2 Gm/400 Ml IVPB 09/15/24 21:05 200 mls/hr ONCE ONE Administration Protocol Sodium Chloride 1,000 mls @ 1,000 mls/hr 09/15/24 19:15 09/15/24 20:35 0.9 % Sodium Chloride 1000 Ml IV 09/15/24 20:14 Infused .Q1H YUNI Infusion Lactated Ringer's 1,000 mls @ 2,000 mls/hr 09/15/24 19:06 09/15/24 21:19 Lactated Ringers 1000 Ml IV 09/15/24 19:35 Infused .Q30M ONE Infusion Pantoprazole Sodium 80 mg 09/15/24 20:17 09/15/24 20:45 Pantoprazole Sodium 40 Mg Inj IVP 09/15/24 20:18 80 mg ONCE ONE Administration Medical Decision Making MDM Narrative Medical decision making narrative: 83-year-old male with a very complex presentation. He is brought into the ER today by EMS from home. He was discharged from [facility] about 3-4 hours prior to arrival here in the ER [place]. He had been in the hospital for a week at [facility] apparently suffering complications from his chemotherapy drugs which he is receiving for recurrent bladder cancer. When he arrived home he was too weak to get out of his car unassisted and was too weak to stay sitting on the toilet and was brought in here. He was hypotensive with blood pressures in the 80s/40s per EMS and his initial vitals here in the ER were similar. Upon arrival after my initial assessment and discovering a lactic of 7, hemoglobin of 7, white count of 16, I did place a call to the [facility] transfer line to initiate transfer to ICU. 1. Infectious disease. Consider possible sepsis or septic shock in this chemo patient with hypotension. He is not febrile. Labs do show a white count of 16 point 7 6 with 91% neutrophil predominance. Upon arrival I ordered a 30 mL/kg IV fluid bolus (1500 mL of normal saline and 2 L of lactated Ringer's). Initial lactic acid is elevated at 7.2. I also ordered broad-spectrum antibiotics to cover for sepsis of unknown etiology. He does have a urostomy tube so could potentially be UTI. However we did not want to delay antibiotics to obtain urinalysis or blood cultures. Patient had good response. Upon recheck after receiving about 1 L of fluids blood pressure was coming up to about 123/90. Mental status seems slightly improved. 2. Hematology. CBC showed a hemoglobin of 7.3. Hemoglobin when he was here at the hospital on 09/07 was 11.9. Unclear if he has been more progressively more anemic this week at [facility]. After phone call the [facility] as able to get information from the transfer center that his hemoglobin was actually 12 this morning o today prior to discharge. This suggests an acute blood loss anemia. I did order a repeat CBC to make sure that our hemoglobin was not laboratory error. Repeat CBC showed a white count up to 27 and hemoglobin of 9.1. Unclear why the hemoglobin would change by 2 g and the white count would have doubled in the matter of an hour. I suspect 1 of these to CBCs was probably lab or phlebotomy error. Type and screen was ordered and I ordered infusion of 1 unit of packed red cells upon discovery of the significant anemia. As far as we know he has not had any recent GI bleeding and did not have any bloody stool after he arrived home today. CT scan of his chest/abdomen/pelvis was undertaken to look for possible internal bleeding. Although noncontrast CT would not be sensitive for active bleed, Given his renal insufficiency we did is a noncontrast scan to at least look for a large fluid collection/hematoma. I my reading the patient CT chest 7 pelvis there is a large fluid collections in the left retroperitoneum which is slowly returning for retroperitoneal hemorrhage. I ordered a repeat CT scan abdomen pelvis with contrast. By my read these do not showing any active contrast extravasation into the hemorrhage- suggesting absence of active bleeding. d/w radiology at 2043- radiology read the CT and agrees that there appears to be 2 large fluid collection the left retroperitoneum 3. Renal/electrolytes. He does have renal insufficiency with a BUN of 59 and a creatinine of 1.7. Creatinine is unchanged from last week but BUN is elevated suggesting possible GI bleed. Total serum Calcium is low a 5.3. Ionized calcium is added on and is 0.82, u nclear if these are also laboratory air is related to the same thing that caused his falsely low hemoglobin. Repeat serum calcium was 6.6 and repeat ionized calcium 1 of 1.02. These numbers are still low so supplemented with calcium gluconate. 4. GI. Patient denies any recent bloody stools or black stools but has a limited historian. With elevated BUN compared to last week, consider possible GI bleeding. Protonix added. 5. Neuro. Patient did present with significant altered mental status, slow cognition but no definite focal deficits. As far as we know he did not have any fall. Stat head CT is obtained to look for intracranial bleed. CT is normal. 6. Cardiac. Patient is not endorsing any chest pain. Shows sinus rhythm on the EKG and monitor. Nonspecific changes but no definite ischemia on EKG. Troponin is detectable at 0.06. And terminal proBNP is abnormal [id number]. and this is increased when compared to last week. Chest CT shows clear lungs. Per report from [facility] receiving doctor he apparently had myocarditis as related to his med side effects. Presume these are related to similar or possibly demand ischemia (from his anemia and possible sepsis). 7. Endocrine. Blood sugars normal. Not low. 8. Patient and family confirm that he is full code. Lab Data Labs: Lab Results 09/15/24 09/15/24 09/15/24 Range/Units 19:08 19:15 20:17 WBC 16.76 H 27.94 H* (4.50-11.00) K/uL RBC 2.36 L 2.99 L (4.30-5.90) m/uL Hgb 7.3 L* 9.1 L (13.5-17.5) gm/dL Hct 22.7 L 28.4 L (37.0-53.0) % MCV 96 95 (80-100) fL MCH 31 30 (26-34) pg MCHC 32 32 (32-36) gm/dL RDW Coeff of Comfort 15.7 H 15.7 H (11.5-15.5) % Plt Count 123 L 144 (140-440) K/uL Neut % (Auto) 91.1 H 89.2 H (42.0-72.0) % Lymph % (Auto) 3.8 L 2.6 L (20-44) % [place] % (Auto) 3.6 7.1 (0.0-11.0) % Eos % (Auto) 0.0 0.0 (0.0-7.0) % Baso % (Auto) 0.0 0.0 (0.0-3.0) % Neut # (Auto) 15.30 H 24.90 H (1.7-7.0) K/uL Lymph # (Auto) 0.60 L 0.70 L (0.90-2.90) K/uL [place] # (Auto) 0.60 2.00 H (0.00-0.90) K/UL Eos # (Auto) 0.00 0.00 (0.00-0.50) K/uL Baso # (Auto) 0.00 0.00 (0.00-0.30) K/uL Abs Immat Gran (auto) 0.30 0.30 (0.00-0.30) K/uL Imm/Tot Granulo (auto) 1.5 1.1 % Sodium 142 (135-149) mmol/L Potassium 3.0 L (3.6-5.1) mmol/L Chloride 121 H (96-114) mmol/L Carbon Dioxide 10 L (20-32) mmol/L Anion Gap 11 (7-15) mEq/L BUN 59 H (7-30) mg/dL Creatinine 1.7 H (0.5-1.5) mg/dL Estimated GFR 40 ml/min Glucose 155 H (60-115) mg/dL Lactate 7.2 H* (0.5-1.9) mmol/L Calcium 5.3 L* (8.4-10.6) mg/dL Ionized Calcium Joana 0.82 L (1.11-1.30) mmol/L Total Bilirubin 0.6 (0.1-1.5) mg/dL AST 82 H (12-35) U/L ALT 146 H (4-50) U/L Alkaline Phosphatase 52 (40-150) U/L Troponin I 0.06 H* (0.01-0.04) ng/mL NT-Pro-B Natriuret Pep 1420 H (See Note) pg/mL Total Protein 4.3 L (6.0-8.3) g/dL Albumin 1.6 L (3.3-5.0) g/dL POC Creatinine 1.8 H (0.6-1.3) mg/dl Blood Type A Positive Antibody Screen NEGATIVE Crossmatch (AHG) See Detail 09/15/24 Range/Units 20:41 WBC 26.90 H* (4.50-11.00) K/uL RBC 2.88 L (4.30-5.90) m/uL Hgb 9.0 L (13.5-17.5) gm/dL Hct 27.3 L (37.0-53.0) % MCV 95 (80-100) fL MCH 31 (26-34) pg MCHC 33 (32-36) gm/dL RDW Coeff of Comfort 15.7 H (11.5-15.5) % Plt Count 147 (140-440) K/uL Neut % (Auto) 88.4 H (42.0-72.0) % Lymph % (Auto) 2.5 L (20-44) % [place] % (Auto) 7.8 (0.0-11.0) % Eos % (Auto) 0.0 (0.0-7.0) % Baso % (Auto) 0.0 (0.0-3.0) % Neut # (Auto) 23.80 H (1.7-7.0) K/uL Lymph # (Auto) 0.70 L (0.90-2.90) K/uL [place] # (Auto) 2.10 H (0.00-0.90) K/UL Eos # (Auto) 0.00 (0.00-0.50) K/uL Baso # (Auto) 0.00 (0.00-0.30) K/uL Abs Immat Gran (auto) 0.30 (0.00-0.30) K/uL Imm/Tot Granulo (auto) 1.3 % Sodium 140 (135-149) mmol/L Potassium 4.4 (3.6-5.1) mmol/L Chloride 112 (96-114) mmol/L Carbon Dioxide 16 L (20-32) mmol/L Anion Gap 12 (7-15) mEq/L BUN 84 H (7-30) mg/dL Creatinine 2.5 H (0.5-1.5) mg/dL Estimated GFR 25 ml/min Glucose 123 H (60-115) mg/dL Lactate 6.6 H* (0.5-1.9) mmol/L Calcium 7.6 L (8.4-10.6) mg/dL Ionized Calcium Joana 1.02 L (1.11-1.30) mmol/L Total Bilirubin (0.1-1.5) mg/dL AST (12-35) U/L ALT (4-50) U/L Alkaline Phosphatase (40-150) U/L Troponin I (0.01-0.04) ng/mL NT-Pro-B Natriuret Pep (See Note) pg/mL Total Protein (6.0-8.3) g/dL Albumin (3.3-5.0) g/dL POC Creatinine (0.6-1.3) mg/dl Blood Type Antibody Screen Crossmatch (AHG) Imaging Data CT scan - head: Attestation: I have reviewed the pertinent imaging results. Radiologist's impression: IMPRESSIONS: 1. No evidence of acute infarction, intracranial hemorrhage, or mass-effect seen. 2. The sensitivity and specificity of the exam are moderate to severely limited by artifacts from patient motion. CT Chest/Ab/Pelvis: Attestation: I have reviewed the pertinent imaging results. Radiologist's impression: IMPRESSION: 1. Left retroperitoneal fluid collections most consistent with hemorrhage. There is mass effect upon the left psoas as well as left kidney and pelvic structures. 2. Redemonstrated left hydroureteronephrosis with mild ureteral thickening and inflammation and may represent continued infection or inflammation. Alternatively there may be narrowing at the anastomosis causing mild obstruction. This is mildly improved compared to prior exam 3. Peristomal and left inguinal hernia containing small and large bowel respectively. No bowel obstruction. Findings discussed with Dr. Juarez at 8:47 p.m. on 09/15/[address] Gupta ECG Data Attestation: I personally reviewed and interpreted this ECG as follows: Interpretation: Normal sinus rhythm Rate: 72 NC: 162 QRS axis: Normal axis ST segment/T wave: Nonspecific ST segment T-wave changes that could show lateral ischemia or could be due to LVH with strain QTc: 446 No definite change when compared to 09/07/2024 Critical Care Time Critical Care Time Critical Care Time: Yes Attestation: The patient required my highest level preparedness to intervene emergently and I personally spent this critical care time directly and personally managing the patient. This critical care time included: Obtaining a history; Examining the patient; Pulse oximetry; Ordering and reviewing of studies; Arranging urgent treatment with development of a management plan; Evaluation of patients response to treatment; Frequent reassessment discussions with other providers. This critical care time was performed to assess and manage the high probability of imminent life-threatening deterioration that could result in multiorgan failure. It was exclusive of separate billable procedures and treating other patients and teaching time. Total Critical Care Time in Minutes: 60 Discharge Plan Discharge Clinical Impression: Nontraumatic retroperitoneal hematoma, Anemia, Septic shock, Hypocalcemia, Renal failure Patient Disposition: [facility] Prescriptions: No Action polyethylene glycol 3350 [Miralax] 17 gram/dose powder 17 g PO DAILY PRN (Reason: Constipation) acetaminophen 500 mg capsule 1,000 mg PO Q6H PRN ascorbic acid (vitamin C) 500 mg capsule 500 mg PO 3XW ferrous sulfate [FeroSul] 325 mg (65 mg iron) tablet 325 mg PO 3XW prochlorperazine maleate 10 mg tablet 10 mg PO Q8H PRN ondansetron 8 mg tablet,disintegrating 8 mg PO Q12H PRN hydroxyzine HCl 25 mg tablet 25 mg PO TID PRN krill oil 500 mg capsule 500 mg PO QDAY diphenhydramine HCl [Allergy (diphenhydramine)] 25 mg capsule 25 mg PO BID PRN senna 8.6 mg capsule 17.2 mg PO BID triamcinolone acetonide 0.1 % lotion 1 applic topical BID PRN (Reason: itch) atenolol 25 mg tablet 25 mg PO DAILY simvastatin 40 mg tablet 40 mg PO HS allopurinol 300 mg tablet 300 mg PO DAILY losartan 100 mg tablet 100 mg PO DAILY Stand Alone Forms: [facility] Info Instructions
[2024-09-15 19:27] LABS: Creatinine, Point-of-Care* 1.8 mg/dl (0.6-1.3)
[2024-09-15 19:34] LABS: Lactate Sepsis w/Reflex* 7.2 mmol/L (0.5-1.9)
[2024-09-15 19:35] LABS: Hematocrit 22.7 % (37.0-53.0); Immature Granulocytes Pct Auto 1.5 %; Lymphocytes Percent Auto 3.8 % (20-44); Mean Corpuscular HGB Conc 32 gm/dL (32-36); Mean Corpuscular Hemoglobin 31 pg (26-34); Mean Corpuscular Volume 96 fL (80-100); Monocytes Percent Auto 3.6 % (0.0-11.0); Neutrophils Percent Auto 91.1 % (42.0-72.0); Platelet Count* 123 K/uL (140-440); RDW Coefficient of Variation % 15.7 % (11.5-15.5); Red Blood Count 2.36 m/uL (4.30-5.90); White Blood Count* 16.76 K/uL (4.50-11.00)
[2024-09-15 19:39] LABS: Hemoglobin* 7.3 gm/dL (13.5-17.5); Slide Review Reflex No
[2024-09-15 19:51] LABS: Chloride* 121 mmol/L (96-114)
[2024-09-15 19:52] LABS: Albumin* 1.6 g/dL (3.3-5.0); Sodium* 142 mmol/L (135-149)
--- NOTE | 2024-09-15 19:52 | CRLHL7_ITS ---
For Patients: As a result of the Century Cures Act, medical imaging exams and procedure reports are released immediately into your electronic medical record. You may view this report before your referring provider. If you have questions, please contact your health care provider. INDICATION: Hypotension, possible sepsis, kidney failure. TECHNIQUE: CT chest, abdomen and pelvis acquired without contrast. COMPARISON: CT of the abdomen and pelvis from June 24, 2024. FINDINGS: CHEST: Cardiovascular structures: Heart size is normal. Thoracic aorta and main pulmonary artery are normal in caliber. Coronary artery calcifications. Right chest wall Port-A-Cath with distal tip at the superior cavoatrial junction. Mediastinum and [place]: No mass or adenopathy. Lungs and pleura: Mild left basilar dependent atelectasis. Otherwise lungs and pleural spaces are clear. No suspicious nodules, infiltrates, or effusions. Chest wall and axilla: No mass or adenopathy. Bones: No suspicious bone lesions. Unremarkable for age. ABDOMEN AND PELVIS: Liver: Unremarkable. Gallbladder and bile ducts: Cholelithiasis without CT evidence of cholecystitis. No intra or extrahepatic biliary ductal dilatation. Pancreas: Unremarkable. Spleen: Unremarkable. Adrenal glands: Unremarkable. 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 . GI tract: Parastomal hernia containing fat and small bowel. Sutures in the small bowel within the herniated portions. No bowel obstruction. Above average colonic stool volume. Left inguinal hernia containing large bowel. Vascular structures: Abdominal aorta is normal in caliber. Moderate calcific atherosclerosis. Lymph nodes: Unremarkable. Miscellaneous: Retroperitoneal fluid collections are identified with fluid levels. One of the collections extends into the left psoas (3/128) another extends into the pelvic sidewall. The 1st measures approximately 7.9 x 6.1 centimeters, the inferior collection measures approximately 8.2 x 7.4 centimeters. Given the fluid-fluid level these are likely to represent hemorrhage. Pelvic Organs: Status post cystoprostatectomy. Bones: No suspicious bone lesions. Unremarkable for age. IMPRESSION: 1. Left retroperitoneal fluid collections most consistent with hemorrhage. There is mass effect upon the left psoas as well as left kidney and pelvic structures. 2. Redemonstrated left hydroureteronephrosis with mild ureteral thickening and inflammation and may represent continued infection or inflammation. Alternatively there may be narrowing at the anastomosis causing mild obstruction. This is mildly improved compared to prior exam 3. Peristomal and left inguinal hernia containing small and large bowel respectively. No bowel obstruction. Findings discussed with Dr. Juarez at 8:47 p.m. on 09/15/[address] Gupta Please note that all CT scans at this facility use dose modulation, iterative reconstruction, and/or weight-based dosing when appropriate to reduce radiation dose to as low as reasonably achievable. Dictated by Asim Gupta MD @ 09/15/2024 8:47:45 PM (Electronically Signed)
[2024-09-15 19:54] LABS: Alanine Aminotransferase* 146 U/L (4-50); Aspartate Amino Transferase* 82 U/L (12-35); Blood Urea Nitrogen* 59 mg/dL (7-30); Creatinine* 1.7 mg/dL (0.5-1.5); Estimated Glomerular Filt Rate 40 ml/min
[2024-09-15 19:55] LABS: Alkaline Phosphatase* 52 U/L (40-150); Anion Gap 11 mEq/L (7-15); Bilirubin Total* 0.6 mg/dL (0.1-1.5); Carbon Dioxide* 10 mmol/L (20-32); Glucose* 155 mg/dL (60-115); Total Protein* 4.3 g/dL (6.0-8.3)
[2024-09-15] MEDS: 0.9 % SODIUM CHLORIDE 1000 ml 1,000 ML IV (19:57)
[2024-09-15] MEDS: LACTATED RINGERS 1000 ML 1,000 ML 2000 ML IV (19:57)
[2024-09-15 20:08] LABS: Calcium* 5.3 mg/dL (8.4-10.6)
[2024-09-15 20:09] LABS: NT Pro B Type NatriureticPept* 1420 pg/mL (See Note); Troponin I* 0.06 ng/mL (0.01-0.04)
[2024-09-15 20:12] LABS: Ionized Calcium* 0.82 mmol/L (1.11-1.30)
[2024-09-15] MEDS: PIPERACILLIN/TAZOBACTAM 4.5 GM in 0.9 % SODIUM CHLORIDE Mini-bag 100 ML IVPB (20:16)
[2024-09-15] MEDS: VANCOMYCIN 2 GM/400 ML 2 GM/400 ML PIGGYBACK IVPB (20:19)
[2024-09-15 20:23] LABS: Hematocrit 28.4 % (37.0-53.0); Hemoglobin* 9.1 gm/dL (13.5-17.5); Immature Granulocytes Pct Auto 1.1 %; Lymphocytes Percent Auto 2.6 % (20-44); Mean Corpuscular HGB Conc 32 gm/dL (32-36); Mean Corpuscular Hemoglobin 30 pg (26-34); Mean Corpuscular Volume 95 fL (80-100); Monocytes Percent Auto 7.1 % (0.0-11.0); Neutrophils Percent Auto 89.2 % (42.0-72.0); Platelet Count* 144 K/uL (140-440); RDW Coefficient of Variation % 15.7 % (11.5-15.5); Red Blood Count 2.99 m/uL (4.30-5.90)
[2024-09-15 20:28] LABS: Slide Review Reflex No; White Blood Count* 27.94 K/uL (4.50-11.00)
--- NOTE | 2024-09-15 20:40 | CRLHL7_ITS ---
For Patients: As a result of the Century Cures Act, medical imaging exams and procedure reports are released immediately into your electronic medical record. You may view this report before your referring provider. If you have questions, please contact your health care provider. Indication: left retroperitoneal hematoma HX BLADDER CANCER Technique: CT Abdomen/Pelvis W ISOVUE 370 intravenous contrast Please note that all CT scans at this facility use dose modulation, iterative reconstruction, and/or weight-based dosing when appropriate to reduce radiation dose to as low as reasonably achievable. Comparison: 09/15/2024 Findings: Small left pleural effusion. Trace ascites in the left upper quadrant beneath the hemidiaphragm. Liver is unremarkable. Calcified stones in the gallbladder again noted. The spleen is normal in size. No adrenal nodule. Postoperative changes bladder resection. Simple cysts in the posterior right kidney are again noted. Smaller cyst anterior right kidney. Stable cyst anterior left kidney. Distention of the left renal pelvis with wall thickening extending to the left ureter again noted. Periureteral stranding is similar. There are multifocal collections of fluid containing hematocrit levels within the left side of the retroperitoneum, measuring up to approximately 7.5 cm, not significantly changed. Rectus diastasis noted with large abdominal wall pannus containing multiple loops of nonobstructed bowel. Similar stranding densities within the left side of the lower pelvis. No vertebral body compression fracture. Impression: No significant interval change regarding the multifocal left-sided retroperitoneal hematomas. Similar appearance of the left renal collecting system and left ureter. Bilateral renal cysts. Similar appearance of the abdominal wall with multifocal hernias/abdominal wall weakening. No mechanical bowel obstruction. Chronic cholelithiasis. Please note that all CT scans at this facility use dose modulation, iterative reconstruction, and/or weight-based dosing when appropriate to reduce radiation dose to as low as reasonably achievable. Dictated by Guido Willis MD @ 09/19/2024 10:54:36 AM (Electronically Signed)
[2024-09-15] MEDS: PANTOPRAZOLE SODIUM 40 MG INJ 80 MG IVP (20:45)
[2024-09-15 20:47] LABS: Hematocrit 27.3 % (37.0-53.0); Immature Granulocytes Pct Auto 1.3 %; Ionized Calcium* 1.02 mmol/L (1.11-1.30); Lymphocytes Percent Auto 2.5 % (20-44); Mean Corpuscular HGB Conc 33 gm/dL (32-36); Mean Corpuscular Hemoglobin 31 pg (26-34); Mean Corpuscular Volume 95 fL (80-100); Monocytes Percent Auto 7.8 % (0.0-11.0); Neutrophils Percent Auto 88.4 % (42.0-72.0); Platelet Count* 147 K/uL (140-440); RDW Coefficient of Variation % 15.7 % (11.5-15.5); Red Blood Count 2.88 m/uL (4.30-5.90)
[2024-09-15 20:48] LABS: Lactate* 6.6 mmol/L (0.5-1.9)
[2024-09-15 21:12] LABS: Slide Review Reflex No
[2024-09-15] MEDS: TRANEXAMIC ACID 100 MG/ML INJ 1000 MG IV (21:18)
[2024-09-15 21:34] LABS: Chloride* 112 mmol/L (96-114); Sodium* 140 mmol/L (135-149)
[2024-09-15 21:35] LABS: Potassium* 4.4 mmol/L (3.6-5.1)
[2024-09-15 21:37] LABS: Blood Urea Nitrogen* 84 mg/dL (7-30); Creatinine* 2.5 mg/dL (0.5-1.5); Estimated Glomerular Filt Rate 25 ml/min
[2024-09-15 21:38] LABS: Anion Gap 12 mEq/L (7-15); Calcium* 7.6 mg/dL (8.4-10.6); Carbon Dioxide* 16 mmol/L (20-32); Glucose* 123 mg/dL (60-115)
[2024-09-15] MEDS: CALCIUM GLUC 1,000MG/50 ML 1,000 MG/50 ML BAG 100 MG IVPB (22:02)
[2024-09-15] MEDS: fentaNYL 100 MCG/2 ML inj 25 MCG IVP (22:20)
== END 2024-09-16 00:12 | disposition short-term general hospital (02) ==
PROVIDERS: Emergency Provider Emergency Medicine; PCP Internal Medicine
DX: K68.3 Retroperitoneal hematoma (principal); D64.9 Anemia, unspecified; N19 Unspecified kidney failure; E83.51 Hypocalcemia; A41.9 Sepsis, unspecified organism; R65.21 Severe sepsis with septic shock
CPT/HCPCS: 36415; 36430; 70450; 71250; 74176; 74177; 80048; 80053; 81001; 82330; 82565; 83605; 83880; 84484; 85025; 86850; 86900; 86901; 86922; 87040; 93005; 94761; 96365; 96366; 96375; 99285; 99291; J0613; J2470; J2543; J3010; J3372; J7030; J7120; P9016; Q9967

== ENCOUNTER 2024-09-15 22:13 | Outpatient (CLI) | payer MEDICARE, SELFPAY | END 2024-09-15 22:14 | disposition home or self-care (01) | LOC: AMB 09-21 09:49 | PROVIDERS: PCP Internal Medicine; Visit Provider Family Medicine | DX: K68.3 Retroperitoneal hematoma (principal); D64.9 Anemia, unspecified; A41.9 Sepsis, unspecified organism; E83.51 Hypocalcemia; N19 Unspecified kidney failure | CPT/HCPCS: A0425; A0434 ==